=== PATIENT | female | born 1995 | race African-American/Black ===

== ENCOUNTER 2023-11-18 10:02 | Observation (INO) | payer OTHER, SELFPAY ==
[2023-11-18] VITALS (13 sets, daily range): BP systolic 120–161; BP diastolic 79–125; PULSE 84–104; RESP 17–22; TEMP 36.6–36.7; O2SAT 98–100
--- NOTE | ~2023-11-18 | XR_ITS ---
Portable chest x-ray Comparison: None Clinical History: Alcohol abuse Findings: Lungs are clear, without focal consolidation or pleural effusion. Cardiomediastinal silho uette is unremarkable. Bones and soft tissues are unremarkable. Impression: Normal chest. Reviewed, dictated and finalized at location M. Impression: Normal chest.
--- NOTE | ~2023-11-18 | XR_ITS ---
EXAMINATION: XR abdomen/kub 1V DATE: 11/18/2023 15:02 INDICATION: Abdominal pain TECHNIQUE: A supine view of the abdomen was obtained. COMPARISON: None. FINDINGS: Small amount of gas and stool scattered throughout the colon. No dilated loops of gas-filled bowel to suggest obstruction. Phlebolith in the left hemipelvis. No other suspicious calcifications in the ab domen or pelvis. 6 degrees lumbar levocurvature. IMPRESSION: 1. Normal bowel gas pattern. Reviewed, dictated and finalized at location A.
--- NOTE | 2023-11-18 10:22 | ECG_ITS ---
SEE SCANNED COPY FOR CONFIRMED REPORT MTDD
--- NOTE | 2023-11-18 10:26 | ED.ALCOHOL ---
HPI - Alcohol General Chief Complaint: Alcohol <Elisabeth Campos PA-C - Last Filed: 11/18/23 12:33> Stated Complaint: n/v, etoh withdrawal <Elisabeth Campos PA-C - Last Filed: 11/18/23 12:33> Time Seen by Provider: 11/18/23 10:09 <Elisabeth Campos PA-C - Last Filed: 11/18/23 12:33> History of Present Illness HPI narrative: 28-year-old female with a history of alcoholism presents to emergency department for EtOH withdrawal symptoms. Patient states she normally drinks approximately 1 pt to 1/5 of vodka daily. States she has been drinking since she was 4 years old. Patient states she desires to quit drinking so she tried to stop ?cold turkey? yesterday. Her last drink was at 12:15 a.m. on 11/17/2023. States yesterday she began having tremulousness, anxiety, auditory hallucinations, nausea and vomiting. She took a small sip of vodka which improved her symptoms. She arrives via EMS today for worsening symptoms including tremulousness, anxiety, nausea and vomiting, abdominal pain. States she is having some peripheral visual hallucinations, auditory hallucinations, tactile hallucinations. She reports pain throughout her abdomen and states it feels like it is muscular from vomiting. She denies fever. She denies prior history of seizures from alcohol withdrawal. Reports using marijuana few times a week, otherwise denies drug use. <Elisabeth Campos PA-C - Last Filed: 11/18/23 12:33> Related Data Allergies/Adverse Reactions: Allergies Allergy/AdvReac Type Severity Reaction Status Date / Time No Known Allergies Allergy Verified 11/18/23 10:27 <Elisabeth Campos PA-C - Last Filed: 11/18/23 12:33> Review of Systems Review of Systems: CONSTITUTIONAL: Denies fever, chills, or sweats. EYES: Denies visual changes, redness, or discharge. ENT: Denies rhinorrhea, congestion, sore throat, or otalgia. CARDIOVASCULAR: Denies chest pain, palpitations, or edema. RESPIRATORY: Denies cough or dyspnea. GASTROINTESTINAL: See HPI GENITOURINARY: Denies dysuria or hematuria. SKIN: Denies rash or itching. MUSCULOSKELETAL: Denies back pain, joint pain, or myalgia. NEUROLOGIC: Denies headache, numbness, or weakness. PSYCHIATRIC: Denies anxiety or depression. <Elisabeth Campos PA-C - Last Filed: 11/18/23 12:33> [facility] Past Medical History Medical History: Medical History (Updated 11/18/23 @ 13:41 by Chelsea Kruse MD) Alcoholism PTSD (post-traumatic stress disorder) <Elisabeth Campos PA-C - Last Filed: 11/18/23 12:33> Exam Narrative: GENERAL: Ill-appearing HEAD: Normocephalic, atraumatic. EYES: PERRLA and EOMI. ENT: Nares clear, no rhinorrhea or epistaxis. Mucous membranes moist. NECK: Supple. CHEST: Clear to auscultation. No respiratory distress. HEART: Regular rate and rhythm. No murmur heard. Normal peripheral pulses. ABDOMEN: Soft, nontender, nondistended, normal active bowel sounds. EXTREMITIES: Normal range of motion. No edema. SKIN: Warm, dry, no rash. NEURO: Alert and oriented x3. Tremulousness to bilateral upper extremities, tongue fasciculations <Elisabeth Campos PA-C - Last Filed: 11/18/23 12:33> Course TWISTER FRAME TENDER/PA Physician Supervision I agree with midlevel documentation; I performed the medical decision making component of this evaluation. Patient with history of daily alcohol use since the age of 4 presents here after not having anything a drink other than small sip of vodka a day ago, on exam she is extremely agitated and anxious, she is reporting some hallucinations, is quite tremulous here, hypertensive and tachycardic, CIWA score extremely elevated and I am concerned for DTs. Immediately placed on monitors, ativan started, still tremulous so given phenobarbital. This was quite effective and patient now much calmer, vital signs stable, labs concerning for ketoacidosis I suspect likely a starvation/alcoholic ketoacidosis. IV fluids started discussed with ICU Dr Long
[2023-11-18] MEDS: LORazepam INJ (*CRX) 2 MG/ML VIAL IV PUSH ×2 (10:30→18:17)
[2023-11-18 11:02] LABS: Basophils Absolute Auto 0.1 K/mm3 (0.0-0.1); Eosinophils Percent Auto 0.2 % (0-4.4); Hematocrit 37.3 % (37.0-47.0); Hemoglobin 12.1 g/dL (12.0-15.0); Immature Granulocyte Absolute 0.01 K/mm3 (0.00-0.031); Immature Granulocyte Percent A 0.2 % (0-0.5); Lymphocytes Absolute Auto 0.81 K/mm3 (0.9-3.2); Lymphocytes Percent Auto 15.8 % (18.3-44.2); Mean Corpuscular HGB Conc 32.4 g/dl (32-36); Mean Corpuscular Hemoglobin 24.9 pg (26-34); Mean Corpuscular Volume 76.9 fl (80-100); Monocytes Absolute Auto 0.2 K/mm3 (0.1-0.6); Monocytes Percent Auto 4.5 % (2.6-8.5); Neutrophils Percent Auto 78.3 % (45.5-73.1); Platelet Count Result 199 k/mm3 (150-375); Red Blood Count 4.85 M/mm3 (4.2-5.4); Red Cell Distribution Width 14.6 % (11.5-14.5); White Blood Count 5.1 K/mm3 (4.5-10.0)
--- NOTE | 2023-11-18 11:04 | PC.NURSE ---
Pt states she started drinking at age of 4, drinks 2 pints, quart of Vodka daily. Pt is seeking help to stop drinking. States visual hallucination of the rapest walking into her room, tactile of bugs crawling on her skin, sees figures out of her peripheral vision. Pt apprehensive to staff touches, pulls away from staff. Unable to tolerate B/P cuff.
[2023-11-18 11:08] LABS: Appearance Urine Cloudy (Clear); Bacteria Urine 1+ /hpf; Bilirubin Urine Negative (Negative); Blood Urine 1+ (Negative); Color Urine Yellow (Yellow); Glucose Urine UA Negative (Negative); Ketones Urine 4+ mg/dL (Negative); Leukocyte Esterase Ur Negative LEU/UL (Negative); Nitrate Urine Negative (Negative); Non Pathogenic Casts 0-2; Protein Urine 1+ mg/dL (Negative); Specific Grav Ur 1.024 (1.001-1.035); Squamous Epithelial Cell Urine Few /hpf (Few); WBC Urine 0-5 /hpf (0-3); pH Urine 5.5 (5.0-9.0)
[2023-11-18] MEDS: THIAMINE HCL 200 MG/2 ML VIAL 100 MG IV PUSH (11:10)
[2023-11-18] MEDS: PHENobarbitaL sodium (*CRX) 130 MG/ML VIAL 260 MG IV PUSH (11:11)
[2023-11-18 11:17] LABS: Prothrombin Time 13.6 Seconds (11.1-14.7)
[2023-11-18 11:17] LABS: Alanine Aminotransferase 41 U/L (6-35); Albumin Level 5.4 g/dL (3.5-5.1); Alkaline Phosphatase 101 U/L (38-126); Anion Gap 24 mmol/L (4-12); Aspartate Amino Transferase 85 U/L (14-36); Bilirubin,Total 1.2 mg/dL (0.2-1.3); Blood Urea Nitrogen 4 mg/dL (7-17); Calcium 9.4 mg/dL (8.4-10.2); Carbon Dioxide 13 mmol/L (22-30); Chloride 98 mmol/L (98-107); Estimated CRCL calculation 115 ml/min; Estimated Glomerular Filt Rate > 60; Glucose 80 mg/dL (65-110); Lipase 53 U/L (23-300); Magnesium 1.3 mg/dL (1.6-2.3); Potassium 3.6 mmol/L (3.4-5.0); Sodium 135 mmol/L (137-145)
[2023-11-18 11:18] LABS: Add Urine Microscopic? YES
[2023-11-18] MEDS: LACTATED RINGERS 1,000 ML 999 ML IV CONT ×2 (11:38→12:27)
[2023-11-18 12:05] LABS: pH VBG 7.394 (7.300-7.400)
[2023-11-18 12:07] LABS: PCO2 VBG 28.6 mmHg (42.0-48.0); PO2 VBG 84.5 mmHg (35.0-45.0)
[2023-11-18 12:08] LABS: Device ROOM AIR; Fractional Inspired Oxygen 21 %; HCO3 VBG 17.1 mEq/l (24.0-30.0)
[2023-11-18] MEDS: Please add drug allergy info to patient profile. 1 EACH XX (12:21)
[2023-11-18] MEDS: MAGNESIUM SULF 2 GM/WATER 50ML 2 GM/50 ML BAG IVPB (12:24)
--- NOTE | 2023-11-18 12:36 | PM.IMHP ---
H&P: HPI History of Present Illness Date/Time: 11/18/23 21:00 Chief Complaint: Alcohol Withdrawal Narrative: 28 y/o F presents here with alcohol withdrawal with PMH of alcoholism and PTSD. Patient presents here via EMS from home for further evaluation and treatment of alcoholism. HPI obtained through chart review, provider report, and patient interview. Patient contributed little due to somnolence. Patient has been attempting to detox from alcohol, unclear amount of time. Upon arrival to the ED the patient reported tremors/spasms to BUE, auditory hallucinations, anxiety, nausea, and vomiting that began last night. Patient did have small sip of vodka last night around 12:15 p.m. on 11/16/2023 to ease her symptoms. Today she is reporting a worsening of her symptoms. States she is no longer having chest visual hallucinations, also experiencing auditory and tactile hallucinations. Also developed abdominal pain. Unable to obtain description/location of pain at this time. Patient has been drinking approximately a pint to a 5th of vodka daily. Has been a daily drinker for awhile, started drinking alcohol at age 4. Has been utilizing alcohol to self medicate for PTSD. Denies previous history alcohol withdrawal seizures. Last period of sobriety in XX and lasted for (timeframe). Denies any other substance issues or substance use beyond marijuana. Initial VS at presentation: 98.1? F, HR 93, R 18, 138/125, and 100% on RA. ED workup showed: No leukocytosis, no anemia, sodium 135 I, creatinine 0.6 and GFR >60, lactic 1.0, Mag 1.3, total bilirubin 1.2, AST 85, ALT 41, lipase 53. UA equivocal for UTI , may be contaminant. CXR shows normal chest. Review of Systems Review of Systems: All systems reviewed & are unremarkable except as noted in HPI and below PMFSH Past Medical History Medical History Alcoholism PTSD (post-traumatic stress disorder) Social History Social History Smoking status: Current every day smoker Tobacco type: e-cigarettes/vaping Alcohol intake: current Drinks per week: 30 Substance use: current Substance use type: marijuana Do You Feel Safe in your Home?: Yes Lack of Transportation: No Lack of Food: Never True Current Housing: I Have Housing Concerned About Future Housing: No Difficulty Paying Gas/Electric Bills: No Difficulty Paying for Meds: No Currently Unemployed: No Education: High School Diploma/GED Difficulty w/ Childcare or Family Care: No Living arrangements: alone Occupation/Education: unemployed Sexual Orientation (if Verbalized by the Patient): Lesbian, Gordon, or Homosexual Spiritual care concerns: No Meds Home Medications and Allergies Home Medications Medication Instructions Recorded Confirmed Type No Home Medications 11/18/23 11/18/23 History Allergies Allergy/AdvReac Type Severity Reaction Status Date / Time No Known Allergies Allergy Verified 11/18/23 10:27 Vital Signs Vital Signs - 24 hr 11/18/23 10:24 11/18/23 10:31 11/18/23 11:45 Temperature 98.1 F Pulse Rate 93 101 H 92 Respiratory Rate 18 22 H 20 Blood Pressure 138/125 H 161/93 H Pulse Oximetry 100 100 100 Exam Narrative: somnolent, AA, young adult, Const: General: comfortable and no acute distress Other: , female, young adult, nontoxic appearance HENMT: Face/Nose/Sinus: Normal nares present Mouth: Yes moist mucous membranes Eyes: General: appearance normal, both eyes and all related structures Sclera: sclerae normal Pupils: Equal, round and reactive pupils present EOM: EOMs intact bilaterally Resp: Effort & Inspection: normal respiratory effort Auscultation: clear to auscultation bilaterally Cardio: Rate: regular rate Rhythm: regular rhythm Other: S1-S2 present without murmur, rub, ectopy GI: Other:
--- NOTE | 2023-11-18 12:37 | PC.NURSE ---
provider requested to not give Precedex unless patient becomes agitated and has more symptoms. patient is currently feeling relaxed and vitals are wnl
[2023-11-18 13:23] LABS: Ethanol < 10 mg/dL (<10)
[2023-11-18 13:33] LABS: Amphetamine Screen Urine Negative (Negative); Barbiturate Screen Urine Negative (Negative); Benzodiazepines Screen Urine Negative (Negative); Cannabinoid Screen Urine Positive (Negative); Cocaine Screen Urine Negative (Negative); Methadone Screen Urine Negative (Negative); Opiate Screen Urine Negative (Negative); Phencyclidine Screen Urine Negative (Negative)
--- NOTE | 2023-11-18 14:44 | WPDCNINT ---
Assessment and Plan Assessment and plan (1) Alcohol withdrawal: Qualifiers: Complication of substance-induced condition: with perceptual disturbance Qualified Code(s): F10.932 - Alcohol use, unspecified with withdrawal with perceptual disturbance Code(s): F10.939 - Alcohol use, unspecified with withdrawal, unspecified Status: Acute Assessment and Plan: Patient presented with alcohol withdrawal symptoms, tremors, auditory hallucinations, anxiety, nausea, vomiting. 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 Once her symptoms are started she did take a sip of water. She drinks 1 pt of vodka daily for many years. In the ER have CIWA score was significantly elevated. Patient received phenobarbital, Ativan in the ER. -upon arrival to the ICU patient does not have any tremors, nausea, vomiting or any hallucinations. Is awake, alert, oriented x3, no tremors noted -will place orders for p.r.n. Ativan for elevated CIWA -start Librium -start thiamine and folic acid -will place patient on D5 NS at 125 mL/hour for 1000 mL (2) Alcoholic ketoacidosis: Code(s): E87.29 - Other acidosis Status: Acute Assessment and Plan: Alcoholic ketoacidosis as well as starvation ketoacidosis patient does not eat at home she only drinks alcohol according to her -will start regular diet as she was to eat something here -will continue to monitor (3) Hypomagnesemia: Code(s): E83.42 - Hypomagnesemia Status: Acute Assessment and Plan: Magnesium was replaced Plan DVT prophylaxis: Enoxaparin Stress ulcer prophylaxis: Protonix Nutrition: Regular diet Code Status: Full code Critical Care Time Spent: 47 minutes Due to a high probability of clinically significant, life threatening deterioration, the patient required my highest level of preparedness to intervene emergently and I personally spent this critical care time directly and personally managing the patient. This critical care time included obtaining a history; examining the patient; pulse oximetry; ordering and review of studies; arranging urgent treatment with development of a management plan; evaluation of patient's response to treatment; frequent reassessment; and discussions with other providers. It was exclusive of separately billable procedures and treating other patients and teaching time. Please see Assessment and Plan section and the rest of the note for further information on patient assessment and treatment This dictation may have been done utilizing a voice recognition system. Attempts have been made to correct errors. However, there may be uncorrected grammatical, spelling, and recognitions errors present. Can Feeder Consult Note Consult date: 11/18/23 Reason for consult: Alcohol withdrawal HPI: Nguyen Saleh is a 28 year old female with past medical history of alcohol withdrawal and PTSD presented the ED on 11/18/2023 with complains of tremors, spasms to bilateral upper extremities, auditory hallucinations, anxiety, nausea, vomiting that started 1 night prior to arrival in the ED. patient is trying to quit drinking under own. She normally drinks 1 pt of vodka daily. Her symptoms worsened this morning prompting her to come to the ICU. Patient complained of abdominal pain. Patient's WBC count was 5.1, hemoglobin 12.1, platelet count 199. INR was 1.0. Sodium 135, potassium 3.6, CO2 13, anion gap of 24, BUN 4, creatinine of 0.6, lactic acid 1.0, blood glucose 80, calcium 9.4, magnesium 1.3, AST 85, ALT 41, lipase 53. Total bilirubin was 1.2. Urine tox screen was positive for cannabinoids. Alcohol levels < 10. Patient states she she vapes and sometimes takes marijuana but no other illicit drugs. Patient has been drinking 1 pt of vodka for many years. Lives by herself and her dog. She does not work. Patient was seen and examined upon arrival to the ICU, is awake, alert, oriented x3, answers to questions appropriately and follows sim
--- NOTE | 2023-11-18 15:14 | PC.NURSE ---
[facility] Admission Note: The patient,Nguyen Saleh,28 y/o, was given written information regarding hospital policies, unit procedures and contact persons. Patient's smoking status: uses a vape and smokes marijuana a few times a week.
[2023-11-18 15:49] LABS: Anion Gap 14 mmol/L (4-12); Blood Urea Nitrogen 3 mg/dL (7-17); Calcium 8.5 mg/dL (8.4-10.2); Carbon Dioxide 17 mmol/L (22-30); Chloride 100 mmol/L (98-107); Estimated CRCL calculation 115 ml/min; Estimated Glomerular Filt Rate > 60; Glucose 67 mg/dL (65-110); Sodium 131 mmol/L (137-145)
[2023-11-18] MEDS: chlordiazePOXIDE (*CRX) 25 MG CAPSULE 50 MG PO (17:18)
[2023-11-18] MEDS: DEXTROSE 5%/0.9% SOD CHL 1,000 ML 125 ML IV CONT (17:19)
[2023-11-18] MEDS: PANTOPRAZOLE SODIUM IV 40 MG VIAL IV PUSH (20:00)
[2023-11-19] VITALS (7 sets, daily range): BP systolic 113–136; BP diastolic 81–104; PULSE 67–97; RESP 17–19; TEMP 36.3–37.1; O2SAT 99–100
[2023-11-19] MEDS: chlordiazePOXIDE (*CRX) 25 MG CAPSULE 50 MG PO (00:03)
[2023-11-19 04:23] LABS: Basophils Percent Auto 0.9 % (0.2-1.2); Eosinophils Absolute Auto 0.1 K/mm3 (0-0.3); Eosinophils Percent Auto 2.8 % (0-4.4); Hematocrit 36.1 % (37.0-47.0); Hemoglobin 11.3 g/dL (12.0-15.0); Immature Platelet Fraction Pct 6.6 % (0.9-11.2); Lymphocytes Percent Auto 53.5 % (18.3-44.2); Mean Corpuscular HGB Conc 31.3 g/dl (32-36); Mean Corpuscular Hemoglobin 24.5 pg (26-34); Mean Corpuscular Volume 78.3 fl (80-100); Mean Platelet Volume 12.6 fl (7.4-10.4); Monocytes Absolute Auto 0.2 K/mm3 (0.1-0.6); Monocytes Percent Auto 6.3 % (2.6-8.5); Neutrophils Absolute Auto 1.2 K/mm3 (1.3-6.7); Neutrophils Percent Auto 36.5 % (45.5-73.1); Platelet Count Result 116 k/mm3 (150-375); Red Blood Count 4.61 M/mm3 (4.2-5.4); Red Cell Distribution Width 14.5 % (11.5-14.5); White Blood Count 3.2 K/mm3 (4.5-10.0)
[2023-11-19 04:34] LABS: Alanine Aminotransferase 36 U/L (6-35); Albumin Level 4.1 g/dL (3.5-5.1); Alkaline Phosphatase 69 U/L (38-126); Anion Gap 6 mmol/L (4-12); Aspartate Amino Transferase 68 U/L (14-36); Bilirubin,Total 0.9 mg/dL (0.2-1.3); Blood Urea Nitrogen 3 mg/dL (7-17); CRP < 0.5 mg/dL (<1.0); Calcium 9.2 mg/dL (8.4-10.2); Carbon Dioxide 25 mmol/L (22-30); Chloride 101 mmol/L (98-107); Creatine Kinase 349 U/L (30-135); Estimated CRCL calculation 115 ml/min; Estimated Glomerular Filt Rate > 60; Glucose 87 mg/dL (65-110); Lipase 72 U/L (23-300); Magnesium 1.8 mg/dL (1.6-2.3); Phosphorus 3.9 mg/dL (2.5-4.5); Potassium 3.7 mmol/L (3.4-5.0); Sodium 132 mmol/L (137-145)
[2023-11-19 04:38] LABS: Lactic Acid Reflex 0.8 mmol/L (0.7-2.0)
[2023-11-19] MEDS: ACETAMINOPHEN 325 MG TABLET 650 MG PO (04:45)
[2023-11-19] MEDS: THIAMINE HCL 200 MG/2 ML VIAL 100 MG IV PUSH (08:31)
[2023-11-19] MEDS: PANTOPRAZOLE SODIUM IV 40 MG VIAL IV PUSH (08:31)
[2023-11-19] MEDS: FOLIC ACID 1 MG/0.2 ML INJ IV PUSH (08:32)
--- NOTE | 2023-11-19 08:46 | WPDINTPN ---
Progress Note: A&P Assessment and Plan (1) Alcohol withdrawal: Qualifiers: Complication of substance-induced condition: with perceptual disturbance Qualified Code(s): F10.932 - Alcohol use, unspecified with withdrawal with perceptual disturbance Code(s): F10.939 - Alcohol use, unspecified with withdrawal, unspecified Status: Acute Assessment and Plan: Patient presented with alcohol withdrawal symptoms, tremors, auditory hallucinations, anxiety, nausea, vomiting. 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 Once her symptoms are started she did take a sip of water. She drinks 1 pt of vodka daily for many years. In the ER have CIWA score was significantly elevated. Patient received phenobarbital, Ativan in the ER. -upon arrival to the ICU patient does not have any tremors, nausea, vomiting or any hallucinations. Is awake, alert, oriented x3, no tremors noted -continue CIWA protocol and p.r.n. Ativan -continue p.r.n. Librium -continue thiamine and folic acid -status post D5 NS at 125 mL/hour for 1000 mL (2) Alcoholic ketoacidosis: Code(s): E87.29 - Other acidosis Status: Acute Assessment and Plan: Alcoholic ketoacidosis as well as starvation ketoacidosis patient does not eat at home she only drinks alcohol according to her - tolerating p.o. diet -will continue to monitor 11/18: Acidosis has resolved with IV fluids (3) Hypomagnesemia: Code(s): E83.42 - Hypomagnesemia Status: Acute Assessment and Plan: Magnesium improved Plan DVT prophylaxis: Enoxaparin Stress ulcer prophylaxis: Protonix Nutrition: Regular diet Code Status: Full code Critical Care Time Spent: 31 minutes Patient may be transferred out of the ICU if okay with hospitalist Due to a high probability of clinically significant, life threatening deterioration, the patient required my highest level of preparedness to intervene emergently and I personally spent this critical care time directly and personally managing the patient. This critical care time included obtaining a history; examining the patient; pulse oximetry; ordering and review of studies; arranging urgent treatment with development of a management plan; evaluation of patient's response to treatment; frequent reassessment; and discussions with other providers. It was exclusive of separately billable procedures and treating other patients and teaching time. Please see Assessment and Plan section and the rest of the note for further information on patient assessment and treatment This dictation may have been done utilizing a voice recognition system. Attempts have been made to correct errors. However, there may be uncorrected grammatical, spelling, and recognitions errors present. Subjective Date/time seen: 11/19/23 08:46 Interval history: Reason for consult: Alcohol withdrawal 11/19/2023: Patient seen and examined the ICU. Patient is awake, oriented x3. Denies any chest pain, shortness for breath abdominal pain, nausea or vomiting. Hemodynamically stable, adequate urine output, afebrile. No upper extremity tremors were noted. Patient is hemodynamically stable, afebrile, adequate O2 sats Review of Systems Review of Systems: All systems reviewed & are unremarkable except as noted in HPI and below Exam Narrative: General: Pleasant female in no acute distress HEENT:? Pupils equal and reactive, sclera is clear, moist oral mucosa Neck:? Supple Respiratory:? Clear to auscultation bilaterally Cardiac:? S1-S2 normal, regular rate and rhythm Abdomen:? Soft, tender to palpation in the left upper quadrant and epigastrium. Nondistended, Normoactive bowel sound Extremities:? No edema palpable pedal pulses Neuro:? Patient is awake, alert, oriented x3, answers to questions appropriately and follows simple commands Skin:? No lesions noted Psych:? Normal mentation and affect Objective Data Vital Signs Vital Signs: Vital Signs -
--- NOTE | 2023-11-19 11:00 | PM.DS ---
DS: Admitting Diagnosis Discharge Date November 19, 2023 Admitting Diagnosis Alcohol withdrawal symptoms DS: Discharge Diagnosis Discharge Diagnosis (1) Alcohol withdrawal: Qualifiers: Complication of substance-induced condition: with perceptual disturbance Qualified Code(s): F10.932 - Alcohol use, unspecified with withdrawal with perceptual disturbance Code(s): F10.939 - Alcohol use, unspecified with withdrawal, unspecified Status: Acute (2) Ketoacidosis: Code(s): E87.29 - Other acidosis Status: Acute (3) Alcoholic ketoacidosis: Code(s): E87.29 - Other acidosis Status: Acute (4) Hypomagnesemia: Code(s): E83.42 - Hypomagnesemia Status: Acute DS: Summary Hospital Course Hospital Course: 28-year-old female with a past medical history alcohol use disorder and PTSD and bipolar type 2. 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 She presented 11/17 with visual hallucinations and auditory and tactile hallucinations and abdominal pain. She had been drinking approximately a pint to a 5th of vodka daily. She had been drinking since age of 4. She uses alcohol to self medicate for PTSD. She was thus admitted to [facility] on 11/17. In the ER she was given phenobarbital. Upon arrival to the ER her symptoms had completely resolved. She was given D5 normal saline at 125 cc for alcoholic ketoacidosis and magnesium replacement for hypo magnesemia. On the morning of 11/18 her acidosis has resolved. Symptoms of her alcohol withdrawal have continued to be resolved. Patient is not wanting to stay for further monitoring. She understands if her symptoms return to return to the ER immediately. She understands if she continues to drink that will continue to increase her morbidity and chance for mortality. She does not want additional medications to help with alcohol abstinence. She has a psychiatrist and a follow-up appointment soon. Agrees to follow-up with that and the primary care. She will be following up with her ed case manager on [facility]. She was amenable to seeing if our care coordinators had recommendations. We asked those be provided. She was counseled on the detrimental effects of alcohol use disorder and she did not want to stay for further monitoring or start any medications to help with the aversion of alcohol. She wants to do the rest on her own. She is stable and requesting discharge on 11/18. She was full code. Time Spent with Patient Time attestation: Total time spent providing and/or coordinating discharge services: Exam Const: General: cooperative and no acute distress Resp: Effort & Inspection: normal respiratory effort Auscultation: clear to auscultation bilaterally Cardio: Rate: regular rate Rhythm: regular rhythm Heart sounds: S1 normal heart sound present and S2 normal heart sound present GI: GI Palp: No abdominal tenderness Auscultation: normal bowel sounds DS: Data Data Completed and Pending Labs on day of discharge: Labs from last 24 hours 11/19/23 11/18/23 11/18/23 03:44 15:28 13:03 WBC 3.2 L RBC 4.61 Hgb 11.3 L Hct 36.1 L MCV 78.3 L MCH 24.5 L MCHC 31.3 L RDW 14.5 Plt Count 116 L MPV 12.6 H Immature Gran % (Auto) 0.0 Neut % (Auto) 36.5 L Lymph % (Auto) 53.5 H [place] % (Auto) 6.3 Eos % (Auto) 2.8 Baso % (Auto) 0.9 Lymph # (Auto) 1.70 [place] # (Auto) 0.2 Eos # (Auto) 0.1 Baso # (Auto) 0.0 Abs Immat Gran (auto) 0.00 Absolute Neuts (auto) 1.2 L Absolute Nucleated RBC 0.000 Nucleated RBC % 0.0 % Immature Plt Fraction 6.6 PT INR VBG pH VBG pCO2 VBG pO2 VBG HCO3 O2 Delivery Device O2 Liters/Min FiO2 Sodium 132 L 131 L Potassium 3.7 4.0 Chloride 101 100 Carbon Dioxide 25 17 L Anion Gap 6 14 H BUN 3 L 3 L Creatinine 0.60 L 0.
[2023-11-19] MEDS: MAGNESIUM OXIDE 400 MG TABLET PO (11:25)
== END 2023-11-19 11:47 | disposition home or self-care (01) ==
LOC: ANHED 12:33 → ANHICU 13:41
PROVIDERS: Internal Medicine; Student in an Organized Health Care Education/Training Program; Admitting Provider Internal Medicine; Emergency Provider Physician Assistant; Visit Provider General Practice
DX: F10.932 Alcohol use, unspecified with withdrawal with perceptual disturbance (principal); E87.29 Other acidosis; E83.42 Hypomagnesemia; F43.10 Post-traumatic stress disorder, unspecified; F12.90 Cannabis use, unspecified, uncomplicated; F17.290 Nicotine dependence, other tobacco product, uncomplicated
CPT/HCPCS: 36415; 71045; 74018; 80048; 80053; 80307; 81001; 81025; 82550; 82803; 83605; 83690; 83735; 84100; 85025; 85055; 85610; 86140; 93005; 96361; 96365; 96374; 96375; 96376; 99285; A9270; C9113; G0378; G0379; J1650; J2060; J2560; J3411; J3475; J7042; J7120

== ENCOUNTER 2023-11-25 19:59 | Emergency (ER) | payer OTHER, SELFPAY ==
--- NOTE | ~2023-11-25 | XR_ITS ---
EXAMINATION: XR hand RT min 3V DATE: 11/25/2023 22:22 INDICATION: Right thumb pain TECHNIQUE: Posteroanterior, oblique and lateral views of the right hand were obtained. COMPARISON: None. FINDINGS: Alignment is normal. No fracture. Joint spaces are normal. Soft tissues are unremarkable. IMPRESSION: 1. Negative right hand radiographs. Reviewed, dictated and finalized at location A.
[2023-11-25 20:01] VITALS: BP 156/90; PULSE 85; RESP 18; TEMP 36.7; O2SAT 100
[2023-11-25 20:21] LABS: Basophils Percent Auto 0.9 % (0.2-1.2); Eosinophils Absolute Auto 0.1 K/mm3 (0-0.3); Eosinophils Percent Auto 1.3 % (0-4.4); Hematocrit 35.6 % (37.0-47.0); Hemoglobin 11.3 g/dL (12.0-15.0); Immature Granulocyte Absolute 0.01 K/mm3 (0.00-0.031); Immature Granulocyte Percent A 0.2 % (0-0.5); Lymphocytes Absolute Auto 1.96 K/mm3 (0.9-3.2); Lymphocytes Percent Auto 41.9 % (18.3-44.2); Mean Corpuscular HGB Conc 31.7 g/dl (32-36); Mean Corpuscular Hemoglobin 24.9 pg (26-34); Mean Corpuscular Volume 78.6 fl (80-100); Mean Platelet Volume 9.7 fl (7.4-10.4); Monocytes Absolute Auto 0.6 K/mm3 (0.1-0.6); Monocytes Percent Auto 12.8 % (2.6-8.5); Neutrophils Percent Auto 42.9 % (45.5-73.1); Platelet Count Result 227 k/mm3 (150-375); Red Blood Count 4.53 M/mm3 (4.2-5.4); Red Cell Distribution Width 15.2 % (11.5-14.5); White Blood Count 4.7 K/mm3 (4.5-10.0)
[2023-11-25 20:23] LABS: Appearance Urine Clear (Clear); Bilirubin Urine Negative (Negative); Blood Urine Negative (Negative); Color Urine Yellow (Yellow); Glucose Urine UA Negative (Negative); Ketones Urine Trace mg/dL (Negative); Leukocyte Esterase Ur Negative LEU/UL (Negative); Nitrate Urine Negative (Negative); Protein Urine Negative (Negative); Specific Grav Ur 1.008 (1.001-1.035); Urobilinogen Urine 0.2 mg/dL (<2.0); pH Urine 7.5 (5.0-9.0)
[2023-11-25 20:29] LABS: Alanine Aminotransferase 150 U/L (6-35); Albumin Level 4.9 g/dL (3.5-5.1); Alkaline Phosphatase 104 U/L (38-126); Anion Gap 12 mmol/L (4-12); Aspartate Amino Transferase 143 U/L (14-36); Bilirubin,Total 0.5 mg/dL (0.2-1.3); Blood Urea Nitrogen 3 mg/dL (7-17); Calcium 9.2 mg/dL (8.4-10.2); Carbon Dioxide 24 mmol/L (22-30); Chloride 103 mmol/L (98-107); Estimated CRCL calculation 123 ml/min; Estimated Glomerular Filt Rate > 60; Glucose 81 mg/dL (65-110); Potassium 3.1 mmol/L (3.4-5.0); Sodium 139 mmol/L (137-145)
[2023-11-25 20:37] LABS: Amphetamine Screen Urine Negative (Negative); Barbiturate Screen Urine Positive (Negative); Benzodiazepines Screen Urine Negative (Negative); Cannabinoid Screen Urine Positive (Negative); Cocaine Screen Urine Negative (Negative); Methadone Screen Urine Negative (Negative); Opiate Screen Urine Negative (Negative); Phencyclidine Screen Urine Negative (Negative)
[2023-11-25 20:47] LABS: Add Urine Microscopic? NO
[2023-11-25 20:57] LABS: Ethanol 112 mg/dL (<10)
[2023-11-25] MEDS: chlordiazePOXIDE (*CRX) 25 MG CAPSULE 50 MG PO (21:25)
[2023-11-25 21:29] LABS: Free T4 Free Thyroxine 1.29 ng/mL (0.78-2.19)
[2023-11-25 21:32] LABS: Magnesium 1.8 mg/dL (1.6-2.3)
[2023-11-25] MEDS: POTASSIUM CHLORIDE 20 MEQ ER TABLET 40 MEQ PO (22:00)
--- NOTE | 2023-11-25 22:10 | ED.ALCOHOL ---
HPI - Alcohol General Chief Complaint: Alcohol Stated Complaint: etoh withdrawl Time Seen by Provider: 11/25/23 21:17 Source: patient Mode of arrival: ambulatory Limitations: no limitations History of Present Illness HPI narrative: This is a 28-year-old female that presents to the emergency department as she would like to stop drinking alcohol. Reports she started to feel shaky, anxious and nauseous today. She usually drinks a fifth of liquor daily. She was trying to not drink anything. She did drink some Tara before coming in in order to get her symptoms to stop. She presents today as she would like to quit drinking. She is set up for a rehab program which starts in a couple of weeks. Related Data Allergies Allergy/AdvReac Type Severity Reaction Status Date / Time No Known Allergies Allergy Verified 11/25/23 20:06 Review of Systems Review of Systems: CONSTITUTIONAL: Denies fever GASTROINTESTINAL: Denies abdominal pain, nausea, vomiting MUSCULOSKELETAL: Reports joint pain, and myalgia. PSYCHIATRIC: Reports anxiety All systems reviewed & are unremarkable except as noted in HPI and below PMFSH Past Medical History Medical History (Updated 11/25/23 @ 22:56 by Renay Maxwell PA-C) Alcohol abuse Alcoholism PTSD (post-traumatic stress disorder) Social History Social History Smoking status: Current every day smoker Tobacco type: e-cigarettes/vaping Alcohol intake: current Drinks per week: 30 Substance use: current Substance use type: marijuana Do You Feel Safe in your Home?: Yes Lack of Transportation: No Lack of Food: Never True Current Housing: I Have Housing Concerned About Future Housing: No Difficulty Paying Gas/Electric Bills: No Difficulty Paying for Meds: No Currently Unemployed: No Education: High School Diploma/GED Difficulty w/ Childcare or Family Care: No Living arrangements: alone Occupation/Education: unemployed Sexual Orientation (if Verbalized by the Patient): Lesbian, Gordon, or Homosexual Spiritual care concerns: No Exam Narrative: GENERAL: Well-appearing, well-nourished, and in no acute distress. HEAD: Normocephalic, atraumatic. EYES: PERRLA and EOMI. ENT: Nares clear, no rhinorrhea or epistaxis. Mucous membranes moist. Oropharynx without tonsillar hypertrophy exudate or other lesions. Bilateral TMs pearly casey non-bulging NECK: Supple. No adenopathy or masses. CHEST: Clear to auscultation. No respiratory distress. No wheezes rales or rhonchi HEART: Regular rate and rhythm. No murmur heard. Normal peripheral pulses. ABDOMEN: Soft, nontender, nondistended, normal active bowel sounds. EXTREMITIES: Normal range of motion. No edema. SKIN: Warm, dry, no rash. NEURO: No focal deficits. Alert and oriented x3. PSYCH: Normal mood and affect Course Course Emergency Course: Patient updated on her workup and agrees with plan of care Vital Signs Vital signs: Vital Signs Temperature 98.0 F 11/25/23 20:01 Pulse Rate 85 11/25/23 20:01 Respiratory Rate 18 11/25/23 20:01 Blood Pressure 156/90 H 11/25/23 20:01 Pulse Oximetry 100 11/25/23 20:01 Oxygen Delivery Room Air 11/25/23 20:01 Temperature 98.0 F 11/25/23 20:01 Pulse Rate 88 11/25/23 23:08 Respiratory Rate 18 11/25/23 23:08 Blood Pressure 129/93 H 11/25/23 23:08 Pulse Oximetry 98 11/25/23 23:08 Oxygen Delivery Room Air 11/25/23 20:01 MDM - Alcohol MDM Narrative Medical decision making narrative: Patient presents to the emergency department for alcohol abuse. Reports she would like to stop drinking. She had tried to not drink today, but started to experience some anxiety, shaking and nausea. She did drink some Tara prior to coming in [facility] to alleviate her symptoms. She is not tachycardic. Mildly hypertensive upon arrival, this normalized with a dose of Librium. CBC without leukocyt
[2023-11-25 23:08] VITALS: BP 129/93; PULSE 88; RESP 18; O2SAT 98
== END 2023-11-25 23:09 | disposition home or self-care (01) ==
PROVIDERS: Emergency Medicine; Emergency Provider Physician Assistant
DX: M25.541 Pain in joints of right hand (principal); F10.920 Alcohol use, unspecified with intoxication, uncomplicated; F17.210 Nicotine dependence, cigarettes, uncomplicated
CPT/HCPCS: 36415; 73130; 80053; 80307; 81003; 81025; 83735; 84439; 84443; 85025; 99283; A9270

== ENCOUNTER 2024-01-09 09:55 | Emergency (ER) | payer OTHER, SELFPAY ==
[2024-01-09 10:03] VITALS: BP 134/92; PULSE 96; RESP 14; TEMP 36.9; O2SAT 99
[2024-01-09 10:21] LABS: Basophils Absolute Auto 0.1 K/mm3 (0.0-0.1); Basophils Percent Auto 1.3 % (0.2-1.2); Eosinophils Absolute Auto 0.1 K/mm3 (0-0.3); Eosinophils Percent Auto 2.9 % (0-4.4); Hematocrit 36.3 % (37.0-47.0); Immature Granulocyte Absolute 0.01 K/mm3 (0.00-0.031); Immature Granulocyte Percent A 0.2 % (0-0.5); Lymphocytes Percent Auto 52.6 % (18.3-44.2); Mean Corpuscular HGB Conc 33.1 g/dl (32-36); Mean Corpuscular Hemoglobin 25.3 pg (26-34); Mean Corpuscular Volume 76.4 fl (80-100); Mean Platelet Volume 10.9 fl (7.4-10.4); Monocytes Absolute Auto 0.3 K/mm3 (0.1-0.6); Neutrophils Absolute Auto 1.6 K/mm3 (1.3-6.7); Platelet Count Result 148 k/mm3 (150-375); Red Blood Count 4.75 M/mm3 (4.2-5.4); Red Cell Distribution Width 16.2 % (11.5-14.5); White Blood Count 4.6 K/mm3 (4.5-10.0)
[2024-01-09 10:31] LABS: Alanine Aminotransferase 47 U/L (6-35); Albumin Level 4.9 g/dL (3.5-5.1); Alkaline Phosphatase 102 U/L (38-126); Anion Gap 19 mmol/L (4-12); Aspartate Amino Transferase 115 U/L (14-36); Bilirubin,Total 0.7 mg/dL (0.2-1.3); Blood Urea Nitrogen 5 mg/dL (7-17); Carbon Dioxide 23 mmol/L (22-30); Chloride 98 mmol/L (98-107); Estimated CRCL calculation 118 ml/min; Estimated Glomerular Filt Rate > 60; Glucose 113 mg/dL (65-110); Magnesium 1.9 mg/dL (1.6-2.3); Potassium 4.1 mmol/L (3.4-5.0); Sodium 140 mmol/L (137-145)
[2024-01-09] MEDS: SODIUM CHLORIDE 0.9% IV 1,000 ML 999 ML IV CONT ×2 (10:58→11:36)
[2024-01-09 11:03] LABS: Ethanol 320 mg/dL (<10)
[2024-01-09 11:07] LABS: Appearance Urine Clear (Clear); Bilirubin Urine Negative (Negative); Blood Urine Negative (Negative); Color Urine Yellow (Yellow); Glucose Urine UA Negative (Negative); Ketones Urine 1+ mg/dL (Negative); Leukocyte Esterase Ur Negative LEU/UL (Negative); Nitrate Urine Negative (Negative); Protein Urine Negative (Negative); Specific Grav Ur 1.009 (1.001-1.035)
[2024-01-09 11:12] LABS: Add Urine Microscopic? NO
--- NOTE | 2024-01-09 11:26 | ED.ALCOHOL ---
HPI - Alcohol General Chief Complaint: Alcohol Stated Complaint: etoh withdrawal Time Seen by Provider: 01/09/24 10:04 Source: patient and old records reviewed Mode of arrival: ambulatory Limitations: no limitations History of Present Illness HPI narrative: Patient is a 28-year-old female who presents the ED with report of alcohol intoxication. Patient is an alcoholic, drinks a pt or more of liquor per day. She last drink around 10:00 a.m. this morning, a pt of vodka. She reports she would like to quit drinking. She was seen in the ED here in November for similar symptoms, prescribed Librium taper. At that time, patient reported she was scheduled to undergo rehab soon. Patient is unable to explain what happened to the rehab program. per family, she had an appointment at [facility] today to be admitted for rehab, however patient states they were told they had no beds. She was then referred here for further evaluation. Patient denies any pain. Denies nausea, vomiting. States she is hungry. States she does not feel intoxicated. Related Data Allergies Allergy/AdvReac Type Severity Reaction Status Date / Time No Known Allergies Allergy Verified 11/25/23 20:06 Review of Systems Review of Systems: CONSTITUTIONAL: Denies fever, chills, or sweats. GASTROINTESTINAL: Denies abdominal pain, nausea, vomiting NEUROLOGIC: Denies headache, dizziness, numbness, or weakness. All systems reviewed & are unremarkable except as noted in HPI and below PMFSH Past Medical History Medical History Alcohol abuse Alcoholism PTSD (post-traumatic stress disorder) Social History Social History Smoking status: Current every day smoker Tobacco type: e-cigarettes/vaping Alcohol intake: current Drinks per week: 30 Substance use: current Substance use type: marijuana Do You Feel Safe in your Home?: Yes Lack of Transportation: No Lack of Food: Never True Current Housing: I Have Housing Concerned About Future Housing: No Difficulty Paying Gas/Electric Bills: No Difficulty Paying for Meds: No Currently Unemployed: No Education: High School Diploma/GED Difficulty w/ Childcare or Family Care: No Living arrangements: alone Occupation/Education: unemployed Sexual Orientation (if Verbalized by the Patient): Lesbian, Gordon, or Homosexual Spiritual care concerns: No Exam Narrative: GENERAL: Intoxicated appearing, well-nourished, non-toxic, in no acute distress. HEAD: Normocephalic, atraumatic. RESPIRATORY: Airway patent, respirations nonlabored. Clear to auscultation bilaterally, no rales, rhonchi, wheezing. CARDIOVASCULAR: Regular rate and rhythm ABDOMINAL: Soft, nontender, nondistended. Normoactive BS. MUSCULOSKELETAL: Moves all extremities. No gross deformities. SKIN: Warm, dry, normal color. NEURO: Alert, though falling asleep frequently on exam. Speech somewhat slurred at times. Follows commands. No ataxic movements. PSYCHIATRIC: Appropriate mood and affect. Normal interaction. Course Vital Signs Vital signs: Vital Signs Temperature 98.5 F 01/09/24 10:03 Pulse Rate 96 01/09/24 10:03 Respiratory Rate 14 01/09/24 10:03 Blood Pressure 134/92 H 01/09/24 10:03 Pulse Oximetry 99 01/09/24 10:03 Oxygen Delivery Room Air 01/09/24 10:03 Temperature 98.5 F 01/09/24 10:03 Pulse Rate 90 01/09/24 11:53 Respiratory Rate 16 01/09/24 11:53 Blood Pressure 105/71 01/09/24 11:53 Pulse Oximetry 99 01/09/24 11:53 Oxygen Delivery Room Air 01/09/24 10:03 MDM - Alcohol MDM Narrative Medical decision making narrative: Patient presented to ED wanting to stop drinking alcohol. Reports last drink was around 10:00 a.m. this morning. Drinks up to a pt or more of liquor per day. Vital signs are stable upon arrival. Patient appears intoxicated. She is i
[2024-01-09] MEDS: THIAMINE HCL 200 MG/2 ML VIAL 100 MG IV PUSH (11:36)
[2024-01-09 11:53] VITALS: BP 105/71; PULSE 90; RESP 16; O2SAT 99
--- NOTE | 2024-01-09 13:54 | PC.NURSE ---
Pt pulled her IV out. Awaiting father to return to make discharge arrangements.
== END 2024-01-09 15:08 | disposition home or self-care (01) ==
PROVIDERS: Emergency Provider Physician Assistant
DX: F10.920 Alcohol use, unspecified with intoxication, uncomplicated (principal); Y90.8 Blood alcohol level of 240 mg/100 ml or more; F17.290 Nicotine dependence, other tobacco product, uncomplicated
CPT/HCPCS: 36415; 80053; 80307; 81003; 81025; 83735; 85025; 96361; 96374; 99284; J3411; J7030

== ENCOUNTER 2024-04-06 19:02 | Emergency (ER) | payer OTHER, SELFPAY ==
[2024-04-06] VITALS (22 sets, daily range): BP systolic 118–146; BP diastolic 72–91; PULSE 88–118; RESP 13–26; TEMP 36.6; O2SAT 98–100
--- NOTE | 2024-04-06 19:10 | ED.NAVMDI ---
HPI - Nausea/Vomiting/Diarrhea General Chief complaint: Nausea/Vomiting/Diarrhea Stated complaint: n/v/d Time Seen by Provider: 04/06/24 19:09 Source: patient Mode of arrival: ambulatory Limitations: no limitations History of Present Illness HPI Narrative: Patient came to the ED by private car complaining of nausea and frequent vomiting. Patient drinks on average 3 pt of alcohol daily for years. She is telling me that she started drinking alcohol when she was 4 years old. Patient started fever control injection once a month, today with does 4. At 11:00 a.m. in the morning. The patient had her regular 3 pt of evelia subsequently started having severe nausea and vomiting. Patient concerning about the alcohol intake with vavatrol. Related Data Allergies Allergy/AdvReac Type Severity Reaction Status Date / Time No Known Allergies Allergy Verified 11/25/23 20:06 Review of Systems Review of Systems: All systems reviewed & are unremarkable except as noted in HPI and below PMFSH Past Medical History Medical History Alcohol abuse Alcoholism PTSD (post-traumatic stress disorder) Social History Social History Smoking status: Current every day smoker Tobacco type: e-cigarettes/vaping Alcohol intake: current Drinks per week: 30 Substance use: current Substance use type: marijuana Do You Feel Safe in your Home?: Yes Lack of Transportation: No Lack of Food: Never True Current Housing: I Have Housing Concerned About Future Housing: No Difficulty Paying Gas/Electric Bills: No Difficulty Paying for Meds: No Currently Unemployed: No Education: High School Diploma/GED Difficulty w/ Childcare or Family Care: No Living arrangements: alone Occupation/Education: unemployed Sexual Orientation (if Verbalized by the Patient): Lesbian, Gordon, or Homosexual Spiritual care concerns: No Exam Narrative: General appearance: Well-developed, well-nourished holding vomiting bag in hands Skin: Normal color Head: Normocephalic, nontraumatic Eyes: Clear conjunctiva ENT: Oropharynx normal, ears normal, nose normal Neck: Supple, nontender Chest and respiratory: Airway patent, no respiratory distress, no accessory muscle use Heart: Regular rate/rhythm Abdomen: Soft, nontender, no organomegaly, quiet bowel sounds Vascular: Normal peripheral pulses, normal capillary refill. Musculoskeletal: Normal range of motion, nontender back Neurologic: Alert and oriented ?3, SAMPLE MOUNTER is normal as tested, no gross motor deficit Course Vital Signs Vital signs: Vital Signs Temperature 36.6 C 04/06/24 19:03 Pulse Rate 114 H 04/06/24 19:03 Respiratory Rate 20 04/06/24 19:03 Blood Pressure 118/80 04/06/24 19:03 Pulse Oximetry 99 04/06/24 19:03 Oxygen Delivery Room Air 04/06/24 19:03 Temperature 36.6 C 04/06/24 19:03 Pulse Rate 114 H 04/06/24 19:03 Respiratory Rate 20 04/06/24 19:03 Blood Pressure 118/80 04/06/24 19:03 Pulse Oximetry 99 04/06/24 19:03 Oxygen Delivery Room Air 04/06/24 19:03 MDM - Nausea/Vomiting/Diarrhea MDM Narrative Medical decision making narrative: Patient came with nausea and vomiting after drinking 3 pt of alcohol, after having Vivitrol at 11:00 a.m.. Vital signs showing heart rate of 114 otherwise insignificant Physical examination showing a patient holding vomiting bag in hands with dry heaves and intermittent vomiting Differential diagnosis include occult intoxication, dehydration electrolyte imbalance, drug abuse Blood workup today showed alcohol level of 320 Ur
--- NOTE | 2024-04-06 19:43 | PC.NURSE ---
Pt reported to this RN she had drank 2-3 pints of evelia prior to getting vivitrol injection this morning. pt then had an additional 2-3 shots of evelia this afternoon to finish the bottles off . Pt c/o nausea and chest pain. Pt able to be redirected, but pt continuously standing from bed to drink from faucet and walking into hallway yelling for nurse. Pt moved to room 12 at this time. Pt educated on use of call light and the need for both side rails to be up for safety.
[2024-04-06] MEDS: SODIUM CHLORIDE 0.9% IV 1,000 ML 999 ML IV CONT (20:17)
[2024-04-06] MEDS: ONDANSETRON INJ 4 MG/2 ML VIAL IV PUSH (20:17)
[2024-04-06 20:35] LABS: Basophils Absolute Auto 0.1 K/mm3 (0.0-0.1); Basophils Percent Auto 1.2 % (0.2-1.2); Eosinophils Percent Auto 0.7 % (0-4.4); Hematocrit 35.7 % (37.0-47.0); Hemoglobin 11.6 g/dL (12.0-15.0); Immature Granulocyte Absolute 0.01 K/mm3 (0.00-0.031); Immature Granulocyte Percent A 0.2 % (0-0.5); Lymphocytes Absolute Auto 1.28 K/mm3 (0.9-3.2); Lymphocytes Percent Auto 31.8 % (18.3-44.2); Mean Corpuscular HGB Conc 32.5 g/dl (32-36); Mean Corpuscular Hemoglobin 24.1 pg (26-34); Mean Corpuscular Volume 74.2 fl (80-100); Mean Platelet Volume 10.7 fl (7.4-10.4); Monocytes Absolute Auto 0.4 K/mm3 (0.1-0.6); Monocytes Percent Auto 8.7 % (2.6-8.5); Neutrophils Absolute Auto 2.3 K/mm3 (1.3-6.7); Neutrophils Percent Auto 57.4 % (45.5-73.1); Platelet Count Result 294 k/mm3 (150-375); Red Blood Count 4.81 M/mm3 (4.2-5.4); Red Cell Distribution Width 15.3 % (11.5-14.5)
[2024-04-06 20:40] LABS: Add Urine Microscopic? YES; Appearance Urine Clear (Clear); Bacteria Urine 1+ /hpf; Bilirubin Urine Negative (Negative); Blood Urine Negative (Negative); Color Urine Yellow (Yellow); Glucose Urine UA Negative (Negative); Ketones Urine 2+ mg/dL (Negative); Leukocyte Esterase Ur Negative LEU/UL (Negative); Nitrate Urine Negative (Negative); Protein Urine 1+ mg/dL (Negative); Specific Grav Ur 1.017 (1.001-1.035); Squamous Epithelial Cell Urine Few /hpf (Few); WBC Urine 0-5 /hpf (0-3)
[2024-04-06 20:43] LABS: Ethanol 95 mg/dL (<10)
[2024-04-06 20:49] LABS: Amphetamine Screen Urine Negative (Negative); Barbiturate Screen Urine Negative (Negative); Benzodiazepines Screen Urine Positive (Negative); Cannabinoid Screen Urine Positive (Negative); Cocaine Screen Urine Negative (Negative); Methadone Screen Urine Negative (Negative); Opiate Screen Urine Negative (Negative); Phencyclidine Screen Urine Negative (Negative)
[2024-04-06 21:14] LABS: Platelet Estimate Adequate (Adequate)
[2024-04-06 21:15] LABS: Microcytosis 2+ (NORMAL); Schistocytes None Seen
[2024-04-06 21:16] LABS: Anisocytosis 2+
--- NOTE | 2024-04-06 22:00 | PC.NURSE ---
2199 - patient stated that her dad was the only one that could give her a ride home. this rn called the patients father. dad stated that he could not come get her. and that he wouldn't be here until 399. updated the patient, and she reiterated that she didn't have anyone else to come and get her.
[2024-04-07 00:15] VITALS: PULSE 95; RESP 20
[2024-04-07 00:16] VITALS: BP 124/88; PULSE 89; RESP 24; O2SAT 100
== END 2024-04-07 00:15 | disposition home or self-care (01) ==
PROVIDERS: Emergency Provider Emergency Medicine; PCP Hospitalist
DX: F10.20 Alcohol dependence, uncomplicated (principal); Y90.4 Blood alcohol level of 80-99 mg/100 ml; F12.90 Cannabis use, unspecified, uncomplicated; F13.90 Sedative, hypnotic, or anxiolytic use, unspecified, uncomplicated; F43.10 Post-traumatic stress disorder, unspecified; F17.290 Nicotine dependence, other tobacco product, uncomplicated; Z79.899 Other long term (current) drug therapy
CPT/HCPCS: 36415; 80307; 81001; 82077; 85025; 96361; 96374; 99284; J2405; J7030

== ENCOUNTER 2024-04-07 09:59 | Emergency (ER) | payer OTHER, SELFPAY ==
--- NOTE | ~2024-04-07 | CT_ITS ---
EXAMINATION: CTA chest PE abdomen pel DATE: 04/07/2024 13:56 INDICATION: RUQ abd pain, syncopal episode, +D-Dimer TECHNIQUE: Computed tomography angiography (CTA) of the chest was performed with 100 mL Omnipaque-350 intravenous contrast timed to evaluate the pulmonary arteries, followed by portal venous phase imagi ng of the abdomen and pelvis. Coronal maximum intensity projection 3D-reconstructions were created by the technologist. The dose-length product (DLP) was 514.30 mGy-cm. Automated exposure control and it erative reconstruction technique were employed. COMPARISON: None. FINDINGS: CHEST: Lung parenchyma and airways: Clear. Pleura: Unremarkable. Thoracic inlet, axillae and chest wall: No thyroid or soft tissue mass. Thoracic aorta: No significant dilation. No dissection. Mediastinum: Normal. Heart and pericardium: Normal. Coronary artery calcifications: Absent. Thoracic bones: No acute osseous finding. Pulmonary arteries: Study quality: Adequate. No pulmonary emboli detected. ABDOMEN/PELVIS: Liver: Enlarged. Fatty infiltrated. Biliary/Gallbladder: Gallbladder is normal. No bile duct dilation. Pancreas: No mass or duct dilation. Spleen: Normal. Adrenals:No mass. Kidneys: No suspicious mass, obstructing stone, or hydronephrosis. GI tract: No small or large bowel dilation. Normal appendix. Mesentery/Peritoneum: No ascites, mass, or free air. Retroperitoneum: No mass. Pelvis: Partially distended urinary bladder with moderate wall thickening. Normal uterus and bilatera l ovaries. Soft Tissues: Left hip subcutaneous stranding. Abdominopelvic bones: IMPRESSION: No CT evidence of acute pulmonary embolus. No acute process detected in the chest. Hepatomegaly with steatosis. Cystitis versus bladder wall thickening from incomplete distention. Left hip contusion. Reviewed, dictated and finalized at location K.
--- NOTE | ~2024-04-07 | CT_ITS ---
EXAMINATION: CT brain wo con DATE: 04/07/2024 11:51 INDICATION: Syncope TECHNIQUE: Computed tomography (CT) of the head was performed without intravenous contrast. Sagittal and coronal reconstructions were performed. The mA was adjusted according to patient size. Iterative reconstruction technique was employed. The dose-length product was 529.67 mGy-cm. COMPARISON: None FINDINGS: No acute intracranial hemorrhage, acute infarction or abnormal extra axial fluid collection. Ventricl es are normal and symmetric. No mass/mass effect. The orbits, paranasal sinuses and mastoid air cells are normal. IMPRESSION: 1. Normal head CT. Reviewed, dictated and finalized at location A. IMPRESSION: 1. Normal head CT.
--- NOTE | ~2024-04-07 | CT_ITS ---
EXAMINATION: CT cervical spine wo con DATE: 04/07/2024 11:51 INDICATION: Neck pain post fall TECHNIQUE: Computed tomography (CT) of the cervical spine was performed without intravenous contrast. Automated exposure control and iterative reconstruction technique were employed. The dose-length pro duct was 367.11 mGy-cm. COMPARISON: None FINDINGS: There is straightening of the normal cervical lordosis. No spondylolisthesis or facet subluxation. At lantoaxial interval is unremarkable. Vertebral body and disc heights are normal. No fracture. Negligi ble scattered facet and uncovertebral osteoarthritis. Central canal and neural foramina are patent th roughout. Cervical soft tissues are unremarkable. Mild emphysema in the visualized upper lungs. IMPRESSION: 1. Straightening of the normal cervical lordosis which could be positional or due to muscle spasm. Ot herwise unremarkable cervical spine with no acute osseous abnormality. Reviewed, dictated and finalized at location A. IMPRESSION: 1. Straightening of the normal cervical lordosis which could be positional or d ue to muscle spasm. Otherwise unremarkable cervical spine with no acute osseous abnormality.
--- NOTE | ~2024-04-07 | XR_ITS ---
EXAM: XR knee RT min 4V DATE: 04/07/2024 15:46 HISTORY: knee pain, ABRASION TO LATERAL KNEE . COMPARISON: None available. FINDINGS: Normal mineralization. No fracture or dislocation. No lytic or blastic lesion. Joint space s are maintained. Fragmentation at the tibial tuberosity, likely sequela of Andreina-Schlatter disease. Small volume knee joint effusion. No erosion or periosteal change. Soft tissues within normal limits . IMPRESSION: No acute osseous finding in the right knee. Reviewed, dictated and finalized at location K.
--- NOTE | ~2024-04-07 | XR_ITS ---
EXAMINATION: XR chest 2V DATE: 04/07/2024 11:20 INDICATION: Syncope, nausea, vomiting and malaise TECHNIQUE: PA and lateral views of the chest were obtained. COMPARISON: Chest radiograph dated 11/18/2023 FINDINGS: The lungs remain clear with no focal airspace opacities, pulmonary edema, pleural effusion or pneumot horax. The cardiomediastinal silhouette is normal. Visualized bones and soft tissues are unremarkable . IMPRESSION: 1. Normal chest radiograph. Reviewed, dictated and finalized at location A. IMPRESSION: 1. Normal chest radiograph.
--- NOTE | ~2024-04-07 | US_ITS ---
EXAMINATION: US right upper quadrant DATE: 04/07/2024 11:58 INDICATION: Right upper quadrant abdominal pain TECHNIQUE: Multiple grayscale and Doppler ultrasound images of the abdomen were obtained. COMPARISON: None FINDINGS: The pancreatic head and body are normal in appearance. The pancreatic tail is not visualized. Liver has normal echogenicity and contour, with a smooth surface. No liver lesion identified. No intrahepat ic biliary duct dilation suspected. Portal venous flow was seen in the hepatopetal, normal direction and has normal Doppler waveform. The visualized proximal inferior vena cava is normal. The gallbladde r is normal in appearance with no dilation or wall thickening. There is no cholelithiasis. The commo n bile duct measures 3-4 mm, which is normal. Sonographic Raza sign was reported as positive by the chief optometry service. IMPRESSION: 1. Nonspecific positive sonographic Raza's sign overlying the normal-appearing gallbladder with no evident cholelithiasis, wall thickening or dilation the gallbladder to suggest acute cholecystitis. I f there is continued concern for acute cholecystitis could consider HIDA scan for further evaluation. Reviewed, dictated and finalized at location A. IMPRESSION: 1. Nonspecific positive sonographic Raza's sign overlying the normal-appearin g gallbladder with no evident cholelithiasis, wall thickening or dilation the g allbladder to suggest acute cholecystitis. If there is continued concern for ac vivi cholecystitis could consider HIDA scan for further evaluation.
[2024-04-07 10:29] VITALS: BP 148/98; PULSE 83; RESP 16; TEMP 36.4; O2SAT 99
--- NOTE | 2024-04-07 10:33 | ECG_ITS ---
Test Date: 2024-04-07 10:49:37 Measurements Intervals [place] Rate: 83 P: 63 [place]: 151 QRS: 74 QRSD: 78 T: 59 QT: 364 QTc: 429 Interpretive Statements SINUS RHYTHM WITH SINUS ARRHYTHMIA MODERATE T-WAVE ABNORMALITY, CONSIDER ANTERIOR ISCHEMIA [-0.1+ mV T WAVE IN V3/V4] No previous ECG available for comparison Electronically Signed On 04-07-2024 16:23:41 CDT by Vic Garcia M.D.
[2024-04-07 10:48] LABS: Basophils Percent Auto 0.7 % (0.2-1.2); Eosinophils Percent Auto 0.4 % (0-4.4); Hematocrit 34.4 % (37.0-47.0); Hemoglobin 10.9 g/dL (12.0-15.0); Immature Granulocyte Absolute 0.03 K/mm3 (0.00-0.031); Immature Granulocyte Percent A 0.7 % (0-0.5); Lymphocytes Absolute Auto 1.04 K/mm3 (0.9-3.2); Lymphocytes Percent Auto 23.3 % (18.3-44.2); Mean Corpuscular HGB Conc 31.7 g/dl (32-36); Mean Corpuscular Volume 75.8 fl (80-100); Mean Platelet Volume 11.6 fl (7.4-10.4); Monocytes Absolute Auto 0.4 K/mm3 (0.1-0.6); Monocytes Percent Auto 8.7 % (2.6-8.5); Neutrophils Percent Auto 66.2 % (45.5-73.1); Platelet Count Result 274 k/mm3 (150-375); Red Blood Count 4.54 M/mm3 (4.2-5.4); Red Cell Distribution Width 15.5 % (11.5-14.5); White Blood Count 4.5 K/mm3 (4.5-10.0)
[2024-04-07 10:52] LABS: BEDSIDEPREGUCG Negative (Negative)
[2024-04-07 10:57] LABS: Alanine Aminotransferase 150 U/L (6-35); Albumin Level 4.8 g/dL (3.5-5.1); Alkaline Phosphatase 83 U/L (38-126); Anion Gap 19 mmol/L (4-12); Aspartate Amino Transferase 153 U/L (14-36); Blood Urea Nitrogen 4 mg/dL (7-17); Calcium 9.7 mg/dL (8.4-10.2); Carbon Dioxide 19 mmol/L (22-30); Chloride 95 mmol/L (98-107); Estimated CRCL calculation 115 ml/min; Estimated Glomerular Filt Rate > 60; Glucose 89 mg/dL (65-110); Potassium 3.7 mmol/L (3.4-5.0); Sodium 133 mmol/L (137-145)
--- NOTE | 2024-04-07 11:11 | ED.SYNCOPE ---
HPI - Syncope General Chief Complaint: Syncope Stated Complaint: Vomiting, dizzy Time Seen by Provider: 04/07/24 10:27 History of Present Illness HPI narrative: 28-year-old female with history of alcohol abuse presents to the emergency department for nausea and vomiting as well as syncope. Patient was seen in our emergency department yesterday for nausea and vomiting. Per the patient, she will drink anywhere between 2-4 pt the of Tara a day since she was 4 years old. States she was hospitalized for alcohol withdrawal in January and received her 1st shot of Vivitrol. She has been getting Vivitrol injections every 28 days Since and had been sober, however states she slipped about 3 weeks ago and has been drinking again. patient states she drank Tara and went to receive her Vivitrol injection and then shortly after drink 2 shots and started vomiting. She presented to the ED for evaluation and was discharged home. States she did not feel better when she got home and in the middle of the night she has been vomiting several times. She states she woke up at 1.2 go vomit when she felt lightheaded and dizzy and passed out. She states her uncle heard a loud thump and came into her bedroom. unknown how long patient was unconscious. Her father came and checked on the patient today and brought her to the ED for further evaluation. The patient is complaining of a right-sided posterior headache since the fall and believe she hit her head. She is reporting right upper quadrant abdominal pain, chest pain and shortness of breath. States she feels anxious. She notes that she has been drinking since she was 4 years old. Related Data Allergies Allergy/AdvReac Type Severity Reaction Status Date / Time No Known Allergies Allergy Verified 11/25/23 20:06 Review of Systems Review of Systems: All systems reviewed & are unremarkable except as noted in HPI and below PMFSH Past Medical History Medical History Alcohol abuse Alcoholism PTSD (post-traumatic stress disorder) Social History Social History Smoking status: Current every day smoker Tobacco type: e-cigarettes/vaping Alcohol intake: current Drinks per week: 30 Substance use: current Substance use type: marijuana Do You Feel Safe in your Home?: Yes Lack of Transportation: No Lack of Food: Never True Current Housing: I Have Housing Concerned About Future Housing: No Difficulty Paying Gas/Electric Bills: No Difficulty Paying for Meds: No Currently Unemployed: No Education: High School Diploma/GED Difficulty w/ Childcare or Family Care: No Living arrangements: alone Occupation/Education: unemployed Sexual Orientation (if Verbalized by the Patient): Lesbian, Gordon, or Homosexual Spiritual care concerns: No Exam Narrative: GENERAL: Well-appearing, well-nourished, and in no acute distress. HEAD: Normocephalic, atraumatic. No abrasions, lacerations ecchymosis or hematomas. tenderness to the posterior scalp without crepitus, step-offs or deformities EYES: PERRLA and EOMI. ENT: Nares clear, no rhinorrhea or epistaxis. Mucous membranes moist. NECK: Minimal midline cervical spinous tenderness without crepitus, step-offs or deformities BACK: no midline thoracolumbar spinous tenderness, step-offs or deformities CHEST: Clear to auscultation. No respiratory distress. HEART: Regular rate and rhythm. No murmur heard. Normal peripheral pulses. ABDOMEN: normoactive bowel sounds. Abdomen soft with tenderness in the right upper quadrant with guarding. No rebound or rigidity. No CVA tenderness EXTREMITIES: diffuse tenderness to the right knee, no obvious deformity. No edema or erythema. DP pulse 2 +. Sensation intact. SKIN: Warm, dry, no rash. NEURO: No focal deficits. Alert and oriented x3 Course Vital Signs Vital signs: Vital Si
[2024-04-07 11:44] LABS: Prothrombin Time 13.9 Seconds (11.1-14.7)
[2024-04-07 11:45] LABS: Partial Thromboplastin Time 21.8 Seconds (22.3-36.8)
[2024-04-07 11:52] LABS: Lipase 53 U/L (23-300); Magnesium 1.6 mg/dL (1.6-2.3)
[2024-04-07 11:53] LABS: Ethanol < 10 mg/dL (<10)
[2024-04-07] MEDS: ONDANSETRON INJ 4 MG/2 ML VIAL IV PUSH (11:53)
[2024-04-07] MEDS: LACTATED RINGERS 1,000 ML 999 ML IV CONT (11:59)
[2024-04-07] MEDS: DEXTROSE 5%/LACTATED RINGERS 1,000 ML 999 ML IV CONT ×2 (11:59→12:53)
[2024-04-07] MEDS: THIAMINE HCL 200 MG/2 ML VIAL 100 MG IV PUSH (11:59)
[2024-04-07 12:01] LABS: D Dimer 0.99 ug/mL (<0.48)
[2024-04-07 12:05] LABS: NT Pro B Type Natriuretic Pept 56 pg/mL (19.9-100); Troponin I < 0.012 ng/mL (0.000-0.034)
[2024-04-07] MEDS: PANTOPRAZOLE SODIUM IV 40 MG VIAL IV PUSH (13:39)
[2024-04-07 14:15] LABS: Anion Gap 11 mmol/L (4-12); Blood Urea Nitrogen 3 mg/dL (7-17); Calcium 9.4 mg/dL (8.4-10.2); Carbon Dioxide 26 mmol/L (22-30); Chloride 95 mmol/L (98-107); Estimated CRCL calculation 115 ml/min; Estimated Glomerular Filt Rate > 60; Glucose 96 mg/dL (65-110); Potassium 3.5 mmol/L (3.4-5.0); Sodium 132 mmol/L (137-145)
[2024-04-07 14:58] LABS: Add Urine Microscopic? NO; Appearance Urine Clear (Clear); Bilirubin Urine Negative (Negative); Blood Urine Negative (Negative); Color Urine Yellow (Yellow); Glucose Urine UA 2+ mg/dL (Negative); Ketones Urine 1+ mg/dL (Negative); Leukocyte Esterase Ur Negative LEU/UL (Negative); Nitrate Urine Negative (Negative); Protein Urine Negative (Negative); Specific Grav Ur > 1.045 (1.001-1.035); Urobilinogen Urine 0.2 mg/dL (<2.0); pH Urine 6.5 (5.0-9.0)
[2024-04-07 15:25] VITALS: BP 147/77; PULSE 88; RESP 16; TEMP 36.7; O2SAT 100
[2024-04-07 16:39] VITALS: BP 132/78; PULSE 77; RESP 16; TEMP 36.7; O2SAT 100
== END 2024-04-07 16:40 | disposition home or self-care (01) ==
PROVIDERS: Emergency Provider Physician Assistant; PCP Hospitalist
DX: K29.20 Alcoholic gastritis without bleeding (principal); E86.0 Dehydration; R55 Syncope and collapse; E87.29 Other acidosis; S09.90XA Unspecified injury of head, initial encounter; F10.20 Alcohol dependence, uncomplicated; Y90.0 Blood alcohol level of less than 20 mg/100 ml; F43.10 Post-traumatic stress disorder, unspecified; F17.290 Nicotine dependence, other tobacco product, uncomplicated; W18.39XA Other fall on same level, initial encounter; K76.0 Fatty (change of) liver, not elsewhere classified; R16.0 Hepatomegaly, not elsewhere classified; S70.02XA Contusion of left hip, initial encounter; R94.31 Abnormal electrocardiogram [ECG] [EKG]; R93.41 Abnormal radiologic findings on diagnostic imaging of renal pelvis, ureter, or bladder
CPT/HCPCS: 36415; 70450; 71046; 71275; 72125; 73564; 74177; 76705; 80048; 80053; 81003; 81025; 82077; 83690; 83735; 83880; 84484; 85025; 85380; 85610; 85730; 93005; 96361; 96374; 96375; 99284; J2405; J2470; J3411; J7120; J7121; Q9967

== ENCOUNTER 2024-06-06 18:20 | Emergency (ER) | payer OTHER, SELFPAY ==
--- NOTE | ~2024-06-06 | XR_ITS ---
XR chest 2V Ordering provider: Stewart Hernandez MD History: 28 years Female with . chest pain, NAUSEAS . Comparison: None. FINDINGS: MEDIASTINUM: The cardiac silhouette is not enlarged. LUNGS: No infiltrates, effusions or pneumothorax. OTHER: No free air under the diaphragm. IMPRESSION: No acute cardiopulmonary pathology. Reviewed, dictated and finalized at location A. NE RETAILER
[2024-06-06 18:36] VITALS: BP 114/75; PULSE 86; RESP 17; TEMP 36.8; O2SAT 100
--- NOTE | 2024-06-06 18:36 | ECG_ITS ---
Test Date: 2024-06-06 18:56:26 Measurements Intervals [place] Rate: 109 P: 74 MA: 146 QRS: 71 QRSD: 77 T: 58 QT: 328 QTc: 443 Interpretive Statements SINUS TACHYCARDIA POSSIBLE LEFT ATRIAL ENLARGEMENT [-0.1mV P WAVE IN V1/V2] NONSPECIFIC T-WAVE ABNORMALITY ABNORMAL RHYTHM ECG Compared to ECG 04/07/2024 10:49:37 Sinus rhythm no longer present Sinus arrhythmia no longer present Possible ischemia no longer present T-wave abnormality still present Electronically Signed On 06-07-2024 09:50:53 TYPER by Adriel Haddad M.D.
--- NOTE | 2024-06-06 18:37 | PC.NURSE ---
pt reports to this RN she is having chest pain. chest pain protocol ordered.
[2024-06-06 18:56] LABS: Basophils Absolute Auto 0.1 K/mm3 (0.0-0.1); Basophils Percent Auto 1.3 % (0.2-1.2); Hematocrit 39.8 % (37.0-47.0); Hemoglobin 12.7 g/dL (12.0-15.0); Immature Granulocyte Absolute 0.01 K/mm3 (0.00-0.031); Immature Granulocyte Percent A 0.3 % (0-0.5); Lymphocytes Absolute Auto 1.29 K/mm3 (0.9-3.2); Lymphocytes Percent Auto 33.8 % (18.3-44.2); Mean Corpuscular HGB Conc 31.9 g/dl (32-36); Mean Corpuscular Hemoglobin 23.6 pg (26-34); Mean Platelet Volume 11.1 fl (7.4-10.4); Monocytes Absolute Auto 0.2 K/mm3 (0.1-0.6); Monocytes Percent Auto 5.8 % (2.6-8.5); Neutrophils Absolute Auto 2.3 K/mm3 (1.3-6.7); Neutrophils Percent Auto 58.8 % (45.5-73.1); Platelet Count Result 298 k/mm3 (150-375); Red Blood Count 5.38 M/mm3 (4.2-5.4); White Blood Count 3.8 K/mm3 (4.5-10.0)
[2024-06-06 19:04] LABS: Ethanol 200 mg/dL (<10)
[2024-06-06 19:10] LABS: Alanine Aminotransferase 24 U/L (6-35); Albumin Level 5.2 g/dL (3.5-5.1); Alkaline Phosphatase 83 U/L (38-126); Anion Gap 26 mmol/L (4-12); Aspartate Amino Transferase 52 U/L (14-36); Bilirubin,Total 0.7 mg/dL (0.2-1.3); Blood Urea Nitrogen 6 mg/dL (7-17); Calcium 8.9 mg/dL (8.4-10.2); Carbon Dioxide 6 mmol/L (22-30); Chloride 105 mmol/L (98-107); Estimated CRCL calculation 110 ml/min; Estimated Glomerular Filt Rate > 60; Glucose 66 mg/dL (65-110); Lipase 73 U/L (23-300); Potassium 4.4 mmol/L (3.4-5.0); Sodium 137 mmol/L (137-145)
[2024-06-06 19:15] LABS: Partial Thromboplastin Time 23.4 Seconds (22.3-36.8); Prothrombin Time 13.7 Seconds (11.1-14.7)
[2024-06-06 19:16] LABS: Troponin I < 0.012 ng/mL (0.000-0.034)
[2024-06-06 19:31] LABS: Ovalocytes 1+; Platelet Estimate Adequate (Adequate); Schistocytes None Seen
--- NOTE | 2024-06-06 21:39 | PC.NURSE ---
Pt ripped out her IV in triage. Blood was cleaned up and gauze was applied to injection site.
--- NOTE | 2024-06-06 22:08 | ECG_ITS ---
Test Date: 2024-06-06 22:48:22 Measurements Intervals [place] Rate: 80 P: 58 IA: 140 QRS: 75 QRSD: 78 T: 61 QT: 372 QTc: 431 Interpretive Statements SINUS RHYTHM WITH SINUS ARRHYTHMIA Compared to ECG 06/06/2024 18:56:26 Sinus tachycardia no longer present T-wave abnormality no longer present Electronically Signed On 06-07-2024 09:53:52 CAMERA REPAIRMAN by Adriel Haddad M.D.
--- NOTE | 2024-06-06 22:10 | PC.NURSE ---
Pt. actively vomiting. Md Calderón at bedside. verbal order given for 10mg IV compazine, administered by this RN.
[2024-06-06] MEDS: LORazepam INJ (*CRX) 2 MG/ML VIAL 1 MG IV PUSH (22:25)
[2024-06-06 22:27] VITALS: BP 145/72; PULSE 78; RESP 16; O2SAT 100
--- NOTE | 2024-06-06 22:59 | ED.ALCOHOL ---
HPI - Alcohol General Chief Complaint: Alcohol Stated Complaint: trying to self detox ETOH last drink 1 hr ago Time Seen by Provider: 06/06/24 20:45 Source: patient Mode of arrival: EMS Limitations: no limitations History of Present Illness HPI narrative: This is a 28-year-old female, with history of alcohol withdrawal, who presents to the emergency department trying to self detox from alcohol. The patient states her last drink was at approximately 16:00. Per nursing staff EMS reported the patient blood sugar of 40 for which she was given 100 mL of D10. The patient states she has also used cannabis. She complains of generalized abdominal cramping associated with vomiting and noticing streaks of blood after multiple episodes of vomiting. She has no other complaints at this time. Related Data Allergies Allergy/AdvReac Type Severity Reaction Status Date / Time No Known Allergies Allergy Verified 11/25/23 20:06 Review of Systems Review of Systems: All systems reviewed & are unremarkable except as noted in HPI and below PMFSH Past Medical History Medical History Alcohol abuse Alcoholism PTSD (post-traumatic stress disorder) Social History Social History Smoking status: Current every day smoker Tobacco type: e-cigarettes/vaping Alcohol intake: current Drinks per week: 30 Substance use: current Substance use type: marijuana Do You Feel Safe in your Home?: Yes Lack of Transportation: No Lack of Food: Never True Current Housing: I Have Housing Concerned About Future Housing: No Difficulty Paying Gas/Electric Bills: No Difficulty Paying for Meds: No Currently Unemployed: No Education: High School Diploma/GED Difficulty w/ Childcare or Family Care: No Living arrangements: alone Occupation/Education: unemployed Sexual Orientation (if Verbalized by the Patient): Lesbian, Gordon, or Homosexual Spiritual care concerns: No Exam Narrative: GENERAL: Well-developed, well-nourished, in mild distress with active vomiting HEAD: Normocephalic, atraumatic. EYES: PERRLA and EOMI. CHEST: Clear to auscultation. No respiratory distress. No wheezes rales or rhonchi HEART: Regular rate and rhythm. No murmur heard. Normal peripheral pulses. ABDOMEN: Soft, nontender, nondistended, normal active bowel sounds. EXTREMITIES: Normal range of motion. No edema. SKIN: Warm, dry, no rash. NEURO: Alert and oriented x3. No focal deficit. Moving all 4 limbs spontaneously PSYCH: Normal mood and affect. Course Course Emergency Course: 22:16 - With persistent vomiting, and small streaks of blood noted in the patient's emesis, I suspect Oliva-Soria tear. Chemistries demonstrate anion gap of 26, I suspect due to alcohol ketoacidosis. Lipase within normal limits troponin negative. Chemistries otherwise unremarkable. CBC demonstrates mildly decreased white blood cell count of 3.8 but is otherwise unremarkable. Chest x-ray (obtained after the patient started vomiting with hematemesis) not concerning for acute cardiopulmonary process. EKG unremarkable. I do not suspect ACS. CIWA score 8. Will give 1 mg Ativan and Compazine and reassess. 23:00 - On re-evaluation, the patient is resting peacefully. 23:14 - Patient signed out to over overnight ED physician, Dr. Lopez pending p.o. challenge with plan for discharge with Librium taper. Vital Signs Vital signs: Vital Signs Temperature 98.2 F 06/06/24 18:36 Pulse Rate 86 06/06/24 18:36 Respiratory Rate 17 06/06/24 18:36 Blood Pressure 114/75 06/06/24 18:36 Pulse Oximetry 100 06/06/24 18:36 Temperature 98.2 F 06/06/24 18:36 Pulse Rate 78 06/06/24 22:27 Respiratory Rate 16 06/06/24 22:27 Blood Pressure 145/72 H 06/06/24 22:27 Pulse Oximetry 100 06/06/24 22:27 MDM - Alcohol MDM Narrative Medical decision making narrative: Plan: Labs, imaging, EKG, antiemetics, test, reassess Differential Diagnosis Differential diagnosis: Likely alcohol ketoacidosis, alcohol withdrawal syndrome and other ( Oliva-Soria tear, metabolic abnormality, ACS, other) Lab Data 06/06/24 18:45 06/06/24 18:45 Labs: Lab Results 06/06/24 Range/Units 18:45 WBC 3.8 L (4.5-10.0) K/mm3 RBC 5.38 (4.2-5.4) M/mm3 Hgb 12.7 (12.0-15.0) g/dL Hct 39.8 (37.0-47.0) % MCV 74.0 L (80-100) fl MCH 23.6 L (26-34) pg MCHC 31.9 L (32-36) g/dl RDW 17.0 H (11.5-14.5) % Plt Count 298 (150-375) k/mm3 MPV 11.1 H (7.4-10.4) fl Immature Gran % (Auto) 0.3 (0-0.5) % Neut % (Auto) 58.8 (45.5-73.1) % Lymph % (Auto) 33.8 (18.3-44.2) % Latimer % (Auto) 5.8 (2.6-8.5) % Eos % (Auto) 0.0 (0-4.4) % Baso % (Auto) 1.3 H (0.2-1.2) % Lymph # (Auto) 1.29 (0.9-3.2) K/mm3 Latimer # (Auto) 0.2 (0.1-0.6) K/mm3 Eos # (Auto) 0.0 (0-0.3) K/mm3 Baso # (Auto) 0.1 (0.0-0.1) K/mm3 Abs Immat Gran (auto) 0.01 (0.00-0.031) K/mm3 Absolute Neuts (auto) 2.3 (1.3-6.7) K/mm3 Absolute Nucleated RBC 0.000 (0.0-0.012) K/mm3 Nucleated RBC % 0.0 (0.0-0.2) % Platelet Estimate Adequate (Adequate) Ovalocytes 1+ Schistocytes None seen PT 13.7 (11.1-14.7) Seconds INR 1.0 APTT 23.4 (22.3-36.8) Seconds Sodium 137 (137-145) mmol/L Potassium 4.4 (3.4-5.0) mmol/L Chloride 105 (98-107) mmol/L Carbon Dioxide 6 L (22-30) mmol/L Anion Gap 26 H (4-12) mmol/L BUN 6 L (7-17) mg/dL Creatinine 0.70 (0.7-1.0) mg/dL Estim Creat Clear Calc 110 ml/min Estimated GFR > 60 (59 - ) Glucose 66 (65-110) mg/dL Calcium 8.9 (8.4-10.2) mg/dL Total Bilirubin 0.7 (0.2-1.3) mg/dL AST 52 H (14-36) U/L ALT 24 (6-35) U/L Alkaline Phosphatase 83 (38-126) U/L Troponin I < 0.012 (0.000-0.034) ng/mL Total Protein 9.0 H (6.3-8.2) g/dL Albumin 5.2 H (3.5-5.1) g/dL Lipase 73 (23-300) U/L Ethyl Alcohol 200 (<10) mg/dL Imaging Data Radiologist's impression: ITS Impressions Chest X-Ray 06/06/24 20:44 IMPRESSION: No acute cardiopulmonary pathology. ECG Data EKG #1: Attestation: I personally reviewed and interpreted this ECG as follows: ECG completion date: 06/06/24 ECG completion time: 15:56 Prior ECG tracings: available for review Interpretation: Sinus tachycardia, rate 109, normal axis, no ST segment elevations or T-wave inversions concerning for ischemia, normal intervals with QTC of 443. Compared to EKG done in April 2024, there are no significant changes. Discharge Plan Discharge Clinical Impression: Oliva-Soria tear Alcohol withdrawal Qualifiers: Complication of substance-induced condition: uncomplicated Qualified Code(s): F10.930 - Alcohol use, unspecified with withdrawal, uncomplicated Nausea & vomiting Qualifiers: Vomiting type: unspecified Qualified Code(s): R11.2 - Nausea with vomiting, unspecified Patient Disposition: Home, Self-Care Condition: Stable Instructions: Antibiotic Form, Alcohol Withdrawal (ED) Additional Instructions: You were seen in the emergency department. your labs and EKG are not concerning for injury to the heart or major injury to the esophagus. I suspect with your repeat vomiting, you have a small tear in the esophagus. I recommend nausea medications and follow-up with a primary care doctor. I recommend a course of Librium to assist in alcohol withdrawal and follow-up with outpatient detoxification services. If you develop seizures, chest pain, shortness of breath, or if you have other emergent concerns for life, limb, or eyesight, return to the emergency department. Patient Language: Somali Prescriptions: Changed chlordiazepoxide HCl 25 mg capsule 25 mg PO Q6H Qty: 15 0RF Rx Instructions: Day 1: take 2 caps every 6 hours, Day 2: take 1 cap every 6 hours, Day 3: take 1 cap every 12 hours, Day 4: take 1 cap at night, then discontinue No Action thiamine HCl (vitamin B1) 100 mg tablet 100 mg PO DAILY Qty: 30 0RF folic acid 1 mg tablet 1 mg PO DAILY Qty: 30 0RF chlordiazepoxide HCl 25 mg capsule 25 mg PO BID PRN (Reason: alcohol withdrawal) Qty: 30 0RF ondansetron 4 mg tablet,disintegrating 4 mg PO Q8H Qty: 20 0RF pantoprazole 40 mg tablet,delayed release (DR/EC) 40 mg PO HS Qty: 30 0RF Follow-up/Referrals: Johnny,MD Morgan [Primary Care Provider] - 1 Week Time of Disposition: 23:21
[2024-06-07 01:32] LABS: Troponin I < 0.012 ng/mL (0.000-0.034)
[2024-06-07 02:18] VITALS: BP 132/68; PULSE 95; RESP 15; TEMP 36.6; O2SAT 98
== END 2024-06-07 02:19 | disposition home or self-care (01) ==
PROVIDERS: Emergency Medicine; Emergency Provider Preventive Medicine Aerospace Medicine; PCP Hospitalist
DX: F10.230 Alcohol dependence with withdrawal, uncomplicated (principal); Y90.7 Blood alcohol level of 200-239 mg/100 ml; R11.2 Nausea with vomiting, unspecified; K22.6 Gastro-esophageal laceration-hemorrhage syndrome; F17.290 Nicotine dependence, other tobacco product, uncomplicated; R94.31 Abnormal electrocardiogram [ECG] [EKG]; R00.0 Tachycardia, unspecified
CPT/HCPCS: 36415; 71046; 80053; 82077; 83690; 84484; 85025; 85610; 85730; 93005; 96374; 99284; J0780; J2060

== ENCOUNTER 2024-08-04 06:46 | Emergency (ER) | payer OTHER, SELFPAY ==
[2024-08-04 06:45] VITALS: BP 138/96; PULSE 96; RESP 12; TEMP 36.7; O2SAT 100
[2024-08-04 07:19] VITALS: BP 109/72; PULSE 88; RESP 16; TEMP 36.6; O2SAT 100
--- OUTSIDE RECORDS SUMMARY | 2024-08-04 08:22 | XMS_ITS | Encounter Summary ---
Author Organization [facility] Healthcare Address [address] [place] [address] Care Team Providers Care Deck Lid Fitter Name Role Phone Morgan Turner MD Primary Care Provider [phone] Ashish Morrow MD Unavailable [phone] Silvia Zhang MA Unavailable Unavailable [place] [facility] Unavailable [phone] Reason for Visit * Reason Onset Date Comments Medical Question/Miscellaneous 07/23/2024 Encounter Details Date Type Department Care Team (Late st Contact Info) Description 07/23/2024 Telephone Family Physicians [facility] [address] [place] [address] Morgan Turner MD [address] [place] [address] Medical Question/Miscellaneous Social History Tobacco Use Types Packs/Day Years Used Date Smoking Tobacco: Every Day Vaping Alcohol Use Standard Drinks/Week Comments Yes 0 (1 standard drink = 0.6 oz pur e alcohol) Pint of alcohol a day [facility] Utilities Answer Date Recorded In the past 12 months has [employer] electric, gas, oil, or water company threatened to shut off services in your home? No 07/25/2024 Social Connection and Isolat ion Panel [NHANES] Answer Date Recorded In a typical week, how many times do you talk on the phone with family, friends, or neighbors? More than three times a week 07/25/2024 How often do you get togethe r with friends or relatives? Three times a week 07/25/2024 How often do you attend chur ch or quaker services? Never 07/25/2024 Do you belong to any clubs o r organizations such as religion groups, unions, fraternal or athletic groups, or school groups? No 07/25/2024 How often do you attend meet ings of the clubs or organizations you belong to? Never 07/25/2024 Are you , , di vorced, , never , or living with a partner? Never 07/25/2024 Overall Financial Resource Strain (CARDIA) Answe r Date Recorded How hard is it for you to pa y for the very basics like food, housing, medical care, and heating? Hard 07/25/2024 PHQ-2 Answer Date Recorded PHQ-2 Total Score (If total score is 3 or more points, staff should administer the PHQ-9) 6 01/18/2024 Hunger Vital Sign Answer Date Recorded Within the past 12 months, y ou worried that your food would run out before you got the money to buy more. Never true 07/25/19 25 Within the past 12 months, t he food you bought just didn't last and you didn't have money to get more. Never true 07/25/2024 PRAPARE - Transportation Answer Date Re corded In the past 12 months, has l ack of transportation kept you from medical appointments or from getting medications? No 07/05 In the past 12 months, has l ack of transportation kept you from meetings, work, or from getting things needed for daily living? Yes 07/25/2024 Housing Stability Vital Sign Answer Derrick e Recorded In the last 12 months, was t here a time when you were not able to pay the mortgage or rent on time? No 07/25/2024 In the past 12 months, how m any times have you moved where you were living? 0 07/25/2024 At any time in the past 12 m [facility], were you homeless or living in a fpc (including now)? No 07/25/2024 Personal Safety Answer Date Recorded Have you ever been in or are you currently in a harmful physical or emotional relationship or is someone making you feel afraid or unsafe? Denies 07/23/2024 Education Answer Date Recorded What is the highest level of school you have completed or the highest degree you have received? GED or equivalent 05/2024 Comments Unknown Sex and Gender Information Value Date Recorded Sex Assigned at Not on file Legal Sex Female 6:50 PM INTEGRATED CIRCUIT LAYOUT DESIGNER Gender Identity Not on file Sexual Orientation Not on file documented as of this encounter Miscellaneous Notes * Telephone Encounter - Nena Souza MA - 07/24/2024 10:21 AM INTEGRATED CIRCUIT LAYOUT DESIGNER Patient notified. See political advisor encounter from 07/22. GRATED CIRCUIT LAYOUT DESIGNER * Telephone Encounter - Nena Souza MA - 07/23/2024 3:59 PM INTEGRATED CIRCUIT LAYOUT DESIGNER Dr. Turner, please advise. Also see political advisor encounter from 07/22 that was routed to you today. Thankyou. GRATED CIRCUIT LAYOUT DESIGNER * Telephone Encounter - Ezequiel Watters - 07/23/2024 3:16 PM CST Medical Question/Miscellaneous Caller???s Concern: Caller wants to be advised if she can take naltrexone Hydrochloride 50 mg and librium For alcohol dependency. Caller states if she cannot answer callback, information can be [facility] Please call patient. Sending high priority Does message need to be routed? Yes-Action Needed GRATED CIRCUIT LAYOUT DESIGNER documented in this encounter Plan of Treatment Upcoming Encounters Date Type Department Care Team (Latest Contact Info) Description 12/11/2024 12:00 PM CDT Hospital Encounter [address] [address] Ashsih Morrow MD [address] [place] [address] DR MCCONNELL [address] [place] [id number] 12/11/2024 12:00 PM CDT - 12/11/2024 12:35 PM CDT Surgery [address] [place] [address] Ashish Morrow MD [address] [place] [address] DR [address]CC[address] [place] [address] ESOPHAGOGASTRODUODENOSCOPY Scheduled Procedures Name Priority Associated Diagnoses Date/Ti ma ESOPHAGOGASTRODUODENOSCOPY Erosive esophagitis 12/11/2024 12:00 PM CDT documented as of this encounter Visit Diagnoses Not on filedocumented in this encounter Care Teams Deck Lid Fitter Relationship Specialty Start Date End Date Morgan Turner MD [address] [place] [address] PCP - General Family Medicine 01/18/24 Ashish Morrow MD [address] [place] [address] [address] [place] [address] Consulting Physician Gastroenterology 06/09/24 Silvia Zhang MA [address] [facility] [address] [place] [address] ACO Care Rehabilitation Liaison 07/24/24 07/24/24 Loida Aburto, LIBRARY SCIENCE INSTRUCTOR[address] [place] [address] Scientific Programmer Analyst 07/25/24 documented as of this encounter
--- OUTSIDE RECORDS SUMMARY | 2024-08-04 08:22 | XMS_ITS | Encounter Summary ---
Author Organization [facility] Healthcare Address [address] [place] [address] Care Team Providers Care Coal Hauler Operator Name Role Phone Morgan Turner MD Primary Care Provider [phone] Ashish Morrow MD Unavailable [phone] Loida Aburto [facility] Unavailable [phone] Reason for Visit * Reason Onset Date Comments Alcohol Problem 07/29/2024 Encounter Details Date Type Department Care Team (Late st Contact Info) Description 07/29/2024 Nurse Triage Family Physicians [facility] [address] [facility] [place] [address] Morgan Turner MD [address] [place] [address] Social History Tobacco Use Types Packs/Day Years Used Date Smoking Tobacco: Every Day Vaping Alcohol Use Standard Drinks/Week Comments Yes 0 (1 standard drink = 0.6 oz pur e alcohol) Pint of alcohol a day [facility] Utilities Answer Date Recorded In the past 12 months has [employer] electric, gas, oil, or water company threatened [...] often do you attend chur ch or pentecostalism services? Never 07/25/2024 Do you belong to any clubs o r organizations such as denominational groups, unions, fraternal or athletic groups, or [...] any time in the past 12 m [facility], were you homeless or living [...] on file Legal Sex Female 6:50 PM PYROGLAZER Gender Identity Not on file Sexual Orientation Not on file documented as of this encounter Miscellaneous Notes * Telephone Encounter - Deirdre Isaac RN - 08/03/2024 9:24 AM CST Received call from patient regarding itchy rash all over my body that she believes is related to the Vivitrol injection received 07/26/2024. Patient reports symptom onset three days later . Patient's only complaint is itchiness. Patient denies swelling of the face/lips/tongue/throat, difficulty breathing, and chest pain. Recommended patient treat symptoms with pruo-tgn-[id number] medications, such as antihistamines (Zyrtec), Pepcid, and diphenhydramine. Also recommended oatmeal baths and anti-itch lotions. Patient verbalized understanding and was appreciative of information. Patient stated she will go to the Emergency Room if her symptoms worsen, otherwise she is already scheduled for follow-up with Dr. Turner on 08/08/2024. GLAZER * Telephone Encounter - YukoOctober - 08/03/2024 9:16 AM CST Call Back Caller???s Concern: warm trans to back line Does message need to be routed? No GLAZER * Telephone Encounter - Barby Chacon MA - 07/30/2024 1:31 PM CST Reached out to pt phone, message states the call can not be processed. Reached out to pt Father, Eduardo Saleh, listed on HIPAA and left voicemail requesting return call. GLAZER * Telephone Encounter - Barby Chacon MA - 07/30/2024 9:24 AM CST Please roofer apprentice note and advise. GLAZER * Telephone Encounter - Savana Rolle RN - 07/29/2024 2:03 PM CST Nguyen Saleh with hx of alcohol dependence calling for further recommendations. Last alcohol on 07/24 & 07/25. Received Vivitrol injection in PCP office on 07/25 and has not drank since. Pt also has a Librium prescription currently. Per order, she was to take 1 capsule TID x 5 days, 1 capsule BID for 5 days, then 1 capsule daily x 5 days. She took her first dose in the evening on 07/24, two hours after her last drink, per PCP direction (see Nurse triage encounter 07/22). Most recent dose of Librium was today at 1400. She took another dose this AM. States today she started craving alcohol more intensely than she ever has in this whole process. Says she has already been trying to distract her self today and its no longer working. She I wanting to at least smell alcohol of drink an NA beer. Told her that could lead to a slippery slope of wanting more - she says she thinks she can restrain herself from actually drinking. If she is unable to restrain herself, she is wondering how long she should wait after taking Librium before she can drink alcohol without overdosing and causing harm toherself. Notes that in the past she drank after receiving her Vivitrol shot and was vomiting blood & is fearful of this happening again. Pt does have a control and recovery special tactics but states she cannot reach out to her since it is a Tuesday. Father is with her currently and has been supportive. Does note some nausea earlier today around 1300. Took her hydroxyzine prescribed by psych which provided relief. Denies any other physical symptoms at this time. call center team leader provider recommends pt reach out to different helpline resources or proceed to ED if she feels she needs additional medication or assistance with her current alcohol cravings. Pt made aware of recommendations. Pt declines information/phone numbers for [employer] & AA. States she does not want to go to ED because she believes they will lock her up. Says usually Vivitrol lasts her 28 days before she feels she needs to drink again. Says she doesn'tnormally have urges or cravings. Says she uses alcohol as a coping mechanism. She thinks her anxiety is heightened at this time due to a recent event which could be causing her intense urge to drink.Did not want to elaborate on the recent event. Says she is not used to coping with her feelings. Pthas hx of suicidal and homicidal ideations but denies at this time. She says she plans to drink again in a few weeks once the Vivitrol is out of her system. States she has been taking the Vivitrol for her dad & at her friend's request. States next time she ever takes it again it is going to be for her not for others. Encouraged her to reach out to any supportive family or friends today & to reach out to her psych provider tomorrow. Routing to Morgan Turner MD's office for any further recommendations for pt. Reason for Disposition Alcohol use and unhealthy use, questions about Protocols used: Alcohol Use and Mkzngrwz-Wdhzc-IW GLAZER * Telephone Encounter - Savana Rolle RN - 07/29/2024 1:55 PM CST Regarding: Urges to drink ----- Message from Hiral Stapleton sent at 07/29/2024 1:45 PM PYROGLAZER ----- Chief concern: Urges to drink Duration: 07/29/2024 Callback #: [phone] Additional Comments: Recently had a Vivitrol 07/26 shot on , will be taking Librium at 1345 GLAZER documented in this encounter Plan of Treatment Upcoming Encounters Date Type Department Care Team (Latest Contact Info) Description 12/11/2024 12:00 PM CDT Hospital Encounter [facility] [address] [place] [address] Ashish Morrow MD [address] [place] [address] 12/11/2024 12:00 PM CDT - 12/11/2024 12:35 PM CDT Surgery [facility] [address] [place] [address] Ashish Morrow MD [address] [place] [address] DR MCCONNELL [address] [place] [address] ESOPHAGOGASTRODUODENOSCOPY Scheduled Procedures Name Priority Associated Diagnoses Date/Ti wi ESOPHAGOGASTRODUODENOSCOPY Erosive esophagitis 12/11/2024 12:00 PM CDT documented as of this encounter Visit Diagnoses Not on filedocumented in this encounter Care Teams Coal Hauler Operator Relationship Specialty Start Date End Date Morgan Turner MD [address] [place] [address] PCP - General Family Medicine 01/18/24 Ashish Morrow MD [address] [place] [address] [address] MCCONNELL [address] [place] [address] Consulting Physician Gastroenterology 06/09/24 Loida Aburto, GAMEWELL OPERATOR [address] [place] [address] [place] [address] Cnc Operator Programmer 07/25/24 documented as of this encounter
--- OUTSIDE RECORDS SUMMARY | 2024-08-04 08:22 | XMS_ITS | Data Portability ---
Author Organization [facility] Address [address] [place] [address] Assessment No assessment recorded. Plan of Treatment Reminders Order Date Submit Date Provider Last Modified By Organization Details Last Modified Time Details Appointments None recorded. Lab None recorded. Referral orthopedic referral - Please call patient to schedule 2015 016 ATHENAFAX Not available 6 11:54:00 physical therapy knee referral 2015 016 [facility] Physical, Occupational & Speech Medicine & Rehab, [address] [place], [address], 6 11:42:53 Procedures None recorded. Surgeries None recorded. Imaging x-ray, knee 2015 016 BENITO Not available 6 15:52:54 Medication Orders Pepcid 20 mg tablet 2015 016 jhsi Not available 6 10:55:28 Patient TargetsNo targets recorded. Patient InstructionsNo instructions recorded. Reason for Referral Orthopedic Referral for Knee joint painful on movement Please call patient to schedule Referring Physician: Dheeraj Camacho, Internal Medicine, Encounter Date: 08/27/2015 Referring Physician: Dheeraj gabriel, Internal Medicine, Encounter Date: 08/27/2015 Results Created Date Observation Date Name Description Value Unit Range Abnormal Flag Note LastModifiedBy Organization Detail LastModifiedTime 08/27/19 16 08/27/2015 x-ray , knee No observ ation record ed. [facility] (Imaging) [address] [place], [address], 08/28/2015 11:26:06 08/27/19 16 08/27/2015 x-ray , knee No observ ation record ed. [address] (Imaging) [address] [place], [address], 08/27/2015 22:42:38 08/28/19 16 08/27/2015 x-ray , knee No observ ation record ed. [facility] (Imaging) [address] [place], [address], 09/02/2015 12:35:59 11/11/19 19 11/10/2018 XR, ankle No observ ation record ed. [facility] (Imaging) [address] [place], [address], 11/10/2018 15:43:48 Result Notes None recorded. Problems Name Problem SNOMED Code Status Onset Date Resolution Date Notes Provider Name and Address Organization Details Recorded Time Knee joint painful on movement [id number] Active Dheeraj Camacho MD Attn: Accounting ,[address] [place], [address] , [facility] 6 10:55:27 Problem Notes None recorded. Procedures Surgical History None recorded. Imaging Results Imaging Date Name Status LastModified by [facility] Details LastModified Time 08/27/2015 x-ray, knee completed [facility] (Imaging) [address] [place], [address], 08/28/2015 11:26:06 08/27/2015 x-ray, knee completed [address] (Imaging) [address] [place], [address], 08/27/2015 22:42:38 08/27/2015 x-ray, knee completed [facility] (Imaging) [address] [place], [address], 09/02/2015 12:35:59 11/10/2018 XR, ankle completed [facility] (Imaging) [address] [place], [address], 11/10/2018 15:43:48 Procedure Notes None recorded. Medical Equipment None Reported. Allergies No known drug allergies Medications Name Sig Start Date Stop Date Status Note LastModified by Organization Details LastModified Time azithromycin 250 mg tablet active Not Available Not Availabl e Not Available ibuprofen 800 mg tablet active Not Available Not Available No t Available tramadol 50 mg tablet active Not Available Not Available Not Available meloxicam 7.5 mg tablet active Not Available Not Available No t Available famotidine 20 mg tablet Take 1 tablet twice a day by oral route with meals for 30 days. active Not Available Not Available No t Available benzonatate 100 mg capsule active Not Available Not Availab le Not Available Vitals Date Recorded Body temperature Heart rate Oxygen saturation Oxygen saturation in Arterial blood by Pulse oximetry Body weight Body height Body mass index (BMI) Systolic blood pressure Diastolic blood pressure Provider Name and Address Organization Details Last Updated DateTime 6 97.4 [degF] 79 /min 100 % 100 % 85217.5 16771 g 168.91 cm 21.8 kg/m2 110 mm[Hg] 78 mm[Hg] Dao Mitchell MA [facility] 6 10:39:02 Social History Question Answer Notes LastModified by Organizat ion Details LastModified Time What Is Your Level Of Alcohol Consumption? Occasional [email or web address] Information not available 08/27/2015 Sex: Unknown Functional Status None recorded. Mental Status None recorded. Family History Nothing Reported. Medical History Condition Response Headaches Y Gynecological HistoryNo gynecological history recorded. Obstetrics History GPAL:G 0 P 0 0 0 0 Past Encounters Encounter ID Performer Location Encounter Start Date Encounter Closed Date Diagnosis/Indication Diagnosis SNOMED-CT Code Diagnosis ICD10 Code Diagnosis Note [id number] Francia Machado (Adult Med) [address] [place] [address] 08/27/2015 09:54:18 08/27/2015 10:59:53 Knee joint painful on movement 934102458 M25.569 Health Concerns Section Related Observation LastModified by Organization Detai ls LastModified Time None Recorded Concern Status LastModified by Organization Details LastModified Time None Recorded Advance Directives Directive None Recorded Payers Encounter Date Sequence Insurance Name Policy Number Policy Russell Covered Member ID Russell Member ID Guarantor Name 08/27/2015 1 [facility] (MEDICAID HMO) Nguyen Saleh [id number] Nguyen Saleh Notes Date Note Type Note Provider Name and Address Organization Details Recorded Time 08/27/2015 text/html Right knee pain since she bumted on the corner of [place] March 2015. Dheeraj Camacho MD Attn: Accounting,[address] [facility], [place], [address], [facility] 08/27/2015 10:56:33 OBGyn Episode No OBEpisode recorded.
--- OUTSIDE RECORDS SUMMARY | 2024-08-04 08:22 | XMS_ITS | Encounter Summary ---
Author Organization [facility] Healthcare Address [address] [place] [address] Care Team Providers Care Protozoologist Name Role Phone Morgan Turner MD Primary Care Provider [phone] Ashish Morrow MD Unavailable [phone] Loida Aburto [facility] Unavailable [phone] Encounter Details Date Type Department Care Team (Late st Contact Info) Description 07/25/2024 Telephone Family Physicians [facility] [address] [facility] [place] [address] Morgan Turner MD [address] [place] [address] Social History Tobacco Use Types Packs/Day Years Used Date Smoking Tobacco: Every Day Vaping Alcohol Use Standard Drinks/Week Comments Yes 0 (1 standard drink = 0.6 oz pur e alcohol) Pint of alcohol a day [facility] Utilities Answer Date Recorded In the past 12 months has [employer], gas, oil, or water [employer] threatened to shut off services in your [...] week 07/25/2024 How often do you attend [facility] or religion services? Never 07/25/2024 Do you belong to any clubs o r organizations such as orthodoxy groups, unions, fraternal or athletic groups, or [...] any time in the past 12 m [facility], were you homeless or living in a long-term (including now)? 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 Gender Identity Not on file Sexual Orientation Not on file documented as of this encounter Miscellaneous Notes * Telephone Encounter - Bridget Geiger - 07/25/2024 9:07 AM CST Y MANAGER documented in this encounter Plan of Treatment Upcoming Encounters Date Type Department Care Team (Latest Contact Info) Description 12/11/2024 12:00 PM CDT Hospital Encounter [address] [address] Ashish Morrow MD [address] [place] [address] [place] [address] 12/11/2024 12:00 PM CDT - 12/11/2024 12:35 PM CDT Surgery [address] [address] Ashish Morrow MD [address] [place] [address] [place] [address] ESOPHAGOGASTRODUODENOSCOPY Scheduled Procedures Name Priority Associated Diagnoses Date/Ti dc ESOPHAGOGASTRODUODENOSCOPY Erosive esophagitis 12/11/2024 12:00 PM CDT documented as of this encounter Visit Diagnoses Not on filedocumented in this encounter Care Teams Protozoologist Relationship Specialty Start Date End Date Morgan Turner MD [address] [place] [address] PCP - General Family Medicine 01/18/24 Ashish Morrow MD [address] [place] [address] [place] [address] Consulting Physician Gastroenterology 06/09/24 Loida Aburto, [address] [place] [address] Trouble Shooting Mechanic 07/25/24 documented as of this encounter
--- OUTSIDE RECORDS SUMMARY | 2024-08-04 08:22 | XMS_ITS | Encounter Summary ---
Author Organization [facility] Healthcare Address [address] [place] [address] Care Team Providers Care Clinical Sciences Professor Name Role Phone Morgan Turner MD Primary Care Provider [phone] Ashish Morrow MD Unavailable [phone] Loida Aburto [facility] Unavailable [phone] Reason for Visit * Reason Onset Date Comments Error (Erroneous Encounter) 07/25/2024 Encounter Details Date Type Department Care Team (Late st Contact Info) Description 07/25/2024 Telephone [facility] Accountable Care Organization [address] [place] [phone] Loida Aburto, [address] [place] [address] Error (Erroneous Encounter) Social History Tobacco Use Types Packs/Day Years Used Date Smoking Tobacco: Every Day Vaping Alcohol Use Standard Drinks/Week Comments Yes 0 (1 standard drink = 0.6 oz pur e alcohol) Pint of alcohol a day [facility] Utilities Answer Date Recorded In the past 12 months has [employer], gas, oil, or water company threatened to [...] often do you attend chur ch or pentecostal services? Never 07/25/2024 Do you belong to any clubs o r organizations such as adventism groups, unions, fraternal or athletic groups, or [...] any time in the past 12 m [facility], were you homeless or living in a long term (including now)? 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 Gender Identity Not on file Sexual Orientation Not on file documented as of this encounter Plan of Treatment Upcoming Encounters Date Type Department Care Team (Latest Contact Info) Description 12/11/2024 12:00 PM CDT Hospital Encounter [address] [address] Ashish Morrow MD [address] [facility] [place] [address] 12/11/2024 12:00 PM CDT - 12/11/2024 12:35 PM CDT Surgery [address] [address] Ashish Morrow MD [address] [place] [address] [place] [address] ESOPHAGOGASTRODUODENOSCOPY Scheduled Procedures Name Priority Associated Diagnoses Date/Ti de ESOPHAGOGASTRODUODENOSCOPY Erosive esophagitis 12/11/2024 12:00 PM CDT documented as of this encounter Visit Diagnoses Not on filedocumented in this encounter Care Teams Clinical Sciences Professor Relationship Specialty Start Date End Date Morgan Turner MD [address] [place] [address] PCP - General Family Medicine 01/18/24 Ashish Morrow MD [address] [place] [address] [place] [address] Consulting Physician Gastroenterology 06/09/24 Loida Aburto, WELL LOGGER [address] [place] [address] S[place]o [address] Director Advanced 07/25/24 documented as of this encounter
--- OUTSIDE RECORDS SUMMARY | 2024-08-04 08:22 | XMS_ITS | Clinical Summary ---
Author Organization [facility] Address [address] [place] [address]. [place], [place] [address] [place] [address] Care Team Providers Care Laundry Room Attendant Name Role Phone None, Provider MD Primary Care Provider Unavaila ble Allergies Active Allergy Reactions Criticality Noted Date Comments Pollen Extract Unknown 03/20/2018 Medications famotidine (PEPCID) 20 MG tablet Take 1 tablet (20 mg total) by mouth 2 (two) times daily. 30 tablet 3 Active ondansetron (ZOFRAN-ODT) 4 MG disintegrating tablet Take 1 tablet (4 mg total) by mouth every 8 (eight) hours as needed for Nausea. 20 tablet 3 Active Social History Tobacco Use Types Packs/Day Years Used Date Smoking Tobacco: Every Day Cigarettes Smokeless Tobacco: Never Tobacco Cessation:Ready to Q uit: Not Asked; Counseling Given: Not Answered Alcohol Use Standard Drinks/Week Comments Yes 0 (1 standard drink = 0.6 oz pur e alcohol) every other day Comments No Sex and Gender Information Value Date Recorded Sex Assigned at Not on file Legal Sex Female 1:24 PM CDT Gender Identity Not on file Sexual Orientation Not on file Last Filed Vital Signs Vital Sign Reading Time Taken Comments Blood Pressure 123/67 10/28/2022 11:48 AM CDT Pulse 67 10/28/2022 11:48 AM CDT Temperature 36.8 ??C (98.2 ??F) 10/28/2022 9:10 AM CD T Respiratory Rate 18 10/28/2022 11:48 AM CDT Oxygen Saturation 95% 10/28/2022 11:48 AM CDT Inhaled Oxygen Concentration - - Weight 69.6 kg (153 lb 7 oz) 10/28/2022 9:10 AM CDT Height 175.3 cm (5' 9 ) 10/28/2022 9:10 AM CDT Body Mass Index 22.66 10/28/2022 9:10 AM CDT Plan of Treatment Health Maintenance Due Date Last Done Comments Cervical Cancer Screening Pap Smear (Age 21 to 29) Every 3 Years 1995 Cervical Cancer Screening 1995 Annual Physical 1998 Pneumococcal Vaccine: Pediatrics (0 to 5 Years) and At-Risk Patients (6 to 64 Years) (1 of 2 - PCV) 2001 Hepatitis C 2013 DTaP, Tdap and Td Vaccines (6 - Td or Tdap) 09/27/2019 09/26/2009, 03/15/2000, 1995, Additional history exists COVID-19 Vaccine ( - season) 2024 05/27/2021 Influenza Adult (#1) 2024 08/06/2020, 03/16/20 Hepatitis B Vaccines Completed 1995, 1995, 1995 Meningococcal Vaccine Aged Out 09/26/2009 No radha loi eligible based on patient's age to complete this topic HPV Vaccines Completed 04/21/2010, 09/26/2009 Meningococcal B Vaccine Aged Out No l onger eligible based on patient's age to complete this topic RSV Immunizations Under 20 Months Aged Out No longer eligible based on patient's age to complete this topic Insurance [employer] MEDICAID Care Teams Laundry Room Attendant Relationship Specialty Start Date End Date None, Provider, PCP - General 03/20/18
--- NOTE | 2024-08-04 08:23 | ED_ITS ---
HPI - Allergic Reaction General Chief complaint: Allergic Reaction Stated complaint: allergic reaction Time Seen by Provider: 08/04/24 08:17 Source: patient Mode of arrival: ambulatory Limitations: no limitations History of Present Illness HPI narrative: 29 years old female came to the ED from home by ambulance complaining of itching hives started yesterday morning. She denies any difficulty breathing or swallowing. Patient had taken a Vivitrol shot for alcohol withdrawal on which is 1 day before the beginning of her symptoms Patient been taking this medication for quite a bit of time. Patient denies history of allergy. She denied any new medications or anything different in her life over the last few weeks. Patient is telling me that she had alcohol on July 26, 2024 Related Data Allergies Allergy/AdvReac Type Severity Reaction Status Date / Time No Known Allergies Allergy Verified 08/04/24 06:58 PMFSH Past Medical History Medical History Alcohol abuse Alcoholism PTSD (post-traumatic stress disorder) Social History Social History Smoking status: Current every day smoker Tobacco type: e-cigarettes/vaping Alcohol intake: current Drinks per week: 30 Substance use: current Substance use type: marijuana Do You Feel Safe in your Home?: Yes Lack of Transportation: No Lack of Food: Never True Current Housing: I Have Housing Concerned About Future Housing: No Difficulty Paying Gas/Electric Bills: No Difficulty Paying for Meds: No Currently Unemployed: No Education: High School Diploma/GED Difficulty w/ Childcare or Family Care: No Living arrangements: alone Occupation/Education: unemployed Sexual Orientation (if Verbalized by the Patient): Lesbian, Gordon, or Homosexual Spiritual care concerns: No Exam Narrative: General appearance: Well-developed, well-nourished Skin: Scattered hives and wheals all over the body Head: Normocephalic, nontraumatic Eyes: Clear conjunctiva ENT: Oropharynx normal, ears normal, nose normal Neck: Supple, nontender Chest and respiratory: Airway patent, no respiratory distress, no accessory mu scle use Heart: Regular rate/rhythm Abdomen: Soft, nontender, no organomegaly, quiet bowel sounds Vascular: Normal peripheral pulses, normal capillary refill. 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, no gross motor deficit Course Vital Signs Vital signs: Vital Signs Temperature 36.7 C 08/04/24 06:45 Pulse Rate 96 08/04/24 06:45 Respiratory Rate 12 08/04/24 06:45 Blood Pressure 138/96 H 08/04/24 06:45 Pulse Oximetry 100 08/04/24 06:45 Oxygen Delivery Room Air 08/04/24 06:45 Temperature 36.6 C 08/04/24 07:19 Pulse Rate 88 08/04/24 07:19 Respiratory Rate 16 08/04/24 07:19 Blood Pressure 109/72 08/04/24 07:19 Pulse Oximetry 100 08/04/24 07:19 Oxygen Delivery Room Air 08/04/24 06:45 MDM - Allergic Reaction MDM Narrative Medical decision making narrative: Allergic reaction of unknown etiology, Patient should stop taking Vivitrol until she discussed it with her doctor if has anything to do with her new allergic reaction or not. Differential Diagnosis Differential diagnosis: Likely allergic reaction and adverse reaction to drug Critical Care Time Critical Care Time Critical Care Time: No Discharge Plan Discharge Clinical Impression: Allergic reaction Patient Disposition: Home, Self-Care Condition: Stable Instructions: Acute Rash (ED) Additional Instructions: Return if symptoms are worsening , call your family physician for appointment, take Tylenol as as needed for aches and pain, continue home medications. Stop taking the Vivitrol until you see your prescribing physician Patient Language: Japanese Prescriptions: New prednisone 20 mg tablet 40 mg PO DAILY 5 Days Qty: 10 0RF Zyrtec 10 mg capsule 10 mg PO BID PRN (Reason: allergy symptoms) Qty: 20 0RF No Action thiamine HCl (vitamin B1) 100 mg tablet 100 mg PO DAILY Qty: 30 0RF folic acid 1 mg tablet 1 mg PO DAILY Qty: 30 0RF chlordiazepoxide HCl 25 mg capsule 25 mg PO BID PRN (Reason: alcohol withdrawal) Qty: 30 0RF ondansetron 4 mg tablet,disintegrating 4 mg PO Q8H Qty: 20 0RF pantoprazole 40 mg tablet,delayed release (DR/EC) 40 mg PO HS Qty: 30 0RF chlordiazepoxide HCl 25 mg capsule 25 mg PO Q6H Qty: 15 0RF Rx Instructions: Day 1: take 2 caps every 6 hours, Day 2: take 1 cap every 6 hours, Day 3: take 1 cap every 12 hours, Day 4: take 1 cap at night, then discontinue Follow-up/Referrals: Johnny,MD Morgan [Primary Care Provider] -
--- OUTSIDE RECORDS SUMMARY | 2024-08-04 08:23 | XMS_ITS | Clinical Summary ---
Author Organization [facility] Address [address] [facility] [address] Phone Care Team Providers Care Oil Paint Shader Name Role Phone Provider, None Primary Care Provider Unavailabl e Allergies No known active allergies Medications * This document contains information received from the source organization and may not represent a complete record from that organization. melatonin 3 MG Tablet Take 3 mg by mouth nightly. Active QUEtiapine (SEROquel) 25 MG Tablet Take 25 mg by mouth nightly. Active chlordiazePOXIDE (LIBRIUM) 25 MG Capsule Take 25 mg by mouth 3 times daily as needed for Withdrawal. Active Active Problems Problem Noted Date Diagnosed Date Bipolar disorder, current ep isode manic severe with psychotic features 12/06/2023 Resolved Problems Problem Noted Date Diagnosed Date Resolved Date Alcohol withdrawal 12/02/2023 Family History Medical History Relation Name Comments Heart Attack Maternal Grandfather Relation Name Status Comments Maternal Grandfather Social History Tobacco Use Types Packs/Day Years Used Date Smoking Tobacco: Former Cigarettes Smokeless Tobacco: Never Tobacco Cessation:Counseling Given: Not Answered Alcohol Use Standard Drinks/Week Comments Yes 0 (1 standard drink = 0.6 oz pur e alcohol) pint/daily [facility] Utilities Answer Date Recorded In the past 12 months has th e electric, gas, oil, or water company threatened to shut off services in your home? No 12/02/2023 Hunger Vital Sign Answer Date Recorded Within the past 12 months, y ou worried that your food would run out before you got the money to buy more. Never true 12/02/19 24 Within the past 12 months, t he food you bought just didn't last and you didn't have money to get more. Never true 12/02/2023 PRAPARE - Transportation Answer Date Re corded In the past 12 months, has l ack of transportation kept you from medical appointments or from getting medications? Patient declined 12/02/2023 In the past 12 months, has l ack of transportation kept you from meetings, work, or from getting things needed for daily living? Patient declined 12/02/2023 Housing Stability Vital Sign Answer Derrick e Recorded In the last 12 months, was t here a time when you were not able to pay the mortgage or rent on time? Patient declined 12/02/19 In the last 12 months, how many places have you lived? 2 12/02/2023 In the last 12 months, was t here a time when you did not have a steady place to sleep or slept in a nursing home (including now)? Patient declined 12/02/2023 Comments Unknown Sex and Gender Information Value Date Recorded Sex Assigned at Not on file Legal Sex Female 12:42 PM CDT Gender Identity Not on file Sexual Orientation Not on file Last Filed Vital Signs Vital Sign Reading Time Taken Comments Blood Pressure 112/82 12/06/2023 2:00 PM CDT Pulse 122 12/06/2023 2:00 PM CDT pt, just got back from walking around the [place]. rn were notified Temperature 36.9 ??C (98.5 ??F) 12/06/2023 2 :00 PM CDT Respiratory Rate 20 12/06/2023 2:00 PM CDT Oxygen Saturation 100% 12/06/2023 2:0 0 PM CDT Inhaled Oxygen Concentration - - Weight 65.8 kg (145 lb) 12/02/2023 3:51 PM CDT Height 176.5 cm (5' 9.5 ) 12/02/2023 3: 51 PM CDT Body Mass Index 21.11 12/02/2023 3:51 PM CDT Plan of Treatment Health Maintenance Due Date Last Done Comments Hepatitis C Virus (HCV) Screening 1995 Pap Smear 2016 Influenza Immunization (#1) 2024 02/0 09/2020, 04/21/2019, 03/16/2019, Additional history exists SARS-COV-2 Immunization ( season) 2024 05/27/2021 Respiratory Syncytial Virus (RSV) Immunization (Adult) (1 - 1-dose 75+ series) 2070 Meningococcal Immunization (ACWY) Aged Out 09/30/2017, 09/26/2009 No longer eligibl e based on patient's age to complete this topic TdaP Immunization Completed 09/30/2017, 09/26/2009 Hepatitis B Immunization Completed 019, 11/02/2017, 09/30/2017, Additional history exists Pneumococcal Immunization Combined Aged Out No longer eligible based on patient's age to complete this topic Rotavirus Immunization Aged Out No lo nger eligible based on patient's age to complete this topic Insurance MEDICAID [employer] Advance Directives * Full Code (Latest Code Status on File) Date Activated Date Inactivated Comments 12/02/2023 8:03 PM 12/06/2023 6:47 PM CPR-Full Shira tment: FULL ARREST: Attempt Resuscitation/CPR wit intubation and mechanical ventilation. PRE-ARREST: Use entire range of life support measures to stabilize the patient. Care Teams Oil Paint Shader Relationship Specialty Start Date End Date Provider, None [place] PCP - General 12/02/23
--- OUTSIDE RECORDS SUMMARY | 2024-08-04 08:23 | XMS_ITS | Referral Summary ---
Author Organization [facility] Address [address] [place] [address] Care Team Providers Care Armor Officer Name Role Phone Morgan Turner MD Primary Care Provider [phone] Ashish Morrow MD Unavailable [phone] Loida Aburto [facility] Unavailable [phone] Encounters Date Type Department Care Team Description 08/03/19 25 Nurse Triage [facility] [address] [phone] Morgan Turner MD 07/29/19 25 Nurse Triage [facility] [address] [phone] Morgan Turner MD 07/26/19 25 Telephone [facility] [address] [phone] Morgan Turner MD Medication Problem 07/26/19 25 11:30 AM CHILD NEUROLOGIST Clinical Support [facility] [address] [phone] Alcohol dependence with uncomplicated intoxication (CMS/HCC) (HCC) (Primary Dx) 07/26/19 25 Telephone [facility] [address] [phone] Morgan Turner MD Vivitrol Injection Received 07/25/19 25 Telephone [facility] Care Organization [address] [place] [id number] Loida Aburto LCSW Error (Erroneous Encounter) 07/25/19 Nurse Triage [facility] [address] [phone] Morgan Turner MD 07/25/19 Telephone [facility] [address] [phone] Morgan Turner MD 07/25/19 Telephone [facility] [address] [phone] Morgan Turner MD Medication Request 07/24/19 [facility] ED Outreach [facility] Care Organization [address] [place] [address] Silvia Zhang MA 07/23/19 Nurse Triage [facility] [address] [phone] Zulma Obrien RN 07/23/19 [facility] [address] [place], [place] [phone] Jhon Dias 07/23/19 Telephone [facility] [address] [phone] Morgan Turner MD Medical Question/Miscellaneous 07/23/19 11:44 AM CHILD NEUROLOGIST - 07/23/19 2:11 PM CHILD NEUROLOGIST Emergency [facility] Emergency Department [address] [place] [address] Joseph Kimble MD Alcohol abuse (Primary Dx) Discharge Disposition: Discharge to home or self care 07/23/19 10:30 AM CHILD NEUROLOGIST Office Visit [facility] [address] [phone] Suzanne Jade NP Chronic alcoholic gastritis without hemorrhage (Primary Dx); Alcohol dependence with uncomplicated intoxication (CMS/HCC) (HCC) 07/22/19 25 Nurse Triage [facility] [address] [phone] Morgan Turner MD 07/21/19 Nurse Triage [facility] [address] [phone] Morgan Turner MD 07/20/19 Telephone [facility] [address] [phone] Morgan Turner MD Additional Services Or Orders; Medical Question/Miscellaneous 07/05/19 Documentation [facility] [address] [place] [address] Jhon Dias 07/05/19 1:30 PM CHILD NEUROLOGIST Office Visit [facility] [address] [phone] Morgan Turner MD Alcohol dependence with uncomplicated intoxication (CMS/HCC) (HCC) (Primary Dx); Chronic alcoholic gastritis without hemorrhage 06/20/20 Telephone [facility] Gastroenterology at [address] [place] [phone] La Tolentino 06/14/20 24 11:45 AM CHILD NEUROLOGIST Clinical Support [facility] [address] [phone] Alcohol dependence with uncomplicated intoxication (CMS/HCC) (HCC) (Primary Dx) 06/14/20 24 Telephone [facility] [address] [phone] Morgan Turner MD 06/12/20 24 Telephone [facility] [address] [phone] Morgan Turner MD Med Refill 06/11/20 24 [facility] Post Discharge Follow up phone call [facility] [address] [place] [phone] Pam Elliott 06/09/20 24 10:05 AM CHILD NEUROLOGIST - 06/09/20 24 10:35 AM CHILD NEUROLOGIST Surgery [facility] [address] [place] [address] Ashish Morrow MD ESOPHAGOGASTRODUODENOSCOPY BIOPSY 06/09/20 10:04 AM CHILD NEUROLOGIST Anesthesia Event [facility] [address] [place] [address] Ashish Morrow MD Standefer César VaishnaviJt, MACHINE TENDER 06/07/20 10:33 PM CHILD NEUROLOGIST - 06/09/20 3:09 PM CHILD NEUROLOGIST Hospital Encounter [facility] [address] [place] [address] Jacquelin Joshi MD Hanson, Thomas S., MD Petters, Ekanga Sunday, MD Nikolic, Jelena, MD Upper GI bleed (Primary Dx) Discharge Disposition: Discharge to home or self care 06/07/20 Nurse Triage [facility] [address] [phone] Morgan Turner MD 06/07/20 Documentation [facility] [address] [place] [address] Jhon Dias 06/07/20 9:30 AM CHILD NEUROLOGIST Office Visit [facility] [address] [phone] Morgan Turner MD LLQ pain (Primary Dx); Nausea and vomiting, unspecified vomiting type; Alcohol dependence with uncomplicated intoxication (CMS/HCC) (HCC); Hematemesis with nausea 06/06/20 Orders Only [facility] Health Information Management [address] [place] [address] Morgan Turner MD 06/06/20 Nurse Triage [facility] [address] [phone] Morgan Turner MD from Last 3 Months Allergies Active Allergy Reactions Criticality Noted Date Comments Levonorgestrel-Ethinyl Estrad Vomiting Low 2023 Medications QUEtiapine (SEROquel) 25 mg tablet Take 1 tablet (25 mg total) by mouth nightly 11/15/19 24 025 Active vitamin B-1 100 mg tabletIndicatio ns:PATIENT IS TAKING. Take 1 tablet (100 mg total) by mouth daily 03/29/20 24 Active naltrexone (DEPADE) 50 mg tablet Take 1 tablet (50 mg total) by mouth daily Active naltrexone microspheres (VIVITROL) 380 mg suspension,exte nded rel recon Inject 380 mg into the muscle as instructed every 30 (thirty) days 1.2 each 6 06/08/[address] (PROTONIX) 40 mg EC tabletIndicatio ns:GI Bleed,esophagit is Take 1 tablet (40 mg total) by mouth 2 (two) times a day 60 tablet 2 06/09/20 [address] (CAMPRAL) 333 mg EC tabletIndicatio ns:alcoholism Take 2 tablets (666 mg total) by mouth 3 (three) times a day 180 tablet 07/05/19 25 Active folic acid (FOLVITE) 1 mg tablet Take 1 tablet (1 mg total) by mouth daily 90 tablet 3 07/05/19 25 026 Active chlordiazePOXID E (LIBRIUM) 25 mg capsule Take 1 capsule (25 mg total) by mouth 3 (three) times a day for 5 days, THEN 1 capsule (25 mg total) 2 (two) times a day for 5 days, THEN 1 capsule (25 mg total) daily for 5 days. 30 capsule 07/24/19 25 025 Active chlordiazePOXID E (LIBRIUM) 25 mg capsule Take 1 capsule (25 mg total) by mouth 04/07/20 24 025 Discontinued aluminum-magnes ium hydroxide-simet hicone (MAALOX) suspension 200-200-20 mg/5 mL Take 30 mL by mouth 4 (four) times a day as needed for indigestion 769 mL 06/09/20 24 025 Hospital, Clinic, or Other Facility Administered Medication Ordered Dose Route Frequency Start Date End Date Status naltrexone microspheres (VIVITROL) intramuscular injection 380 mgIndications:Alcohol dependence with uncomplicated intoxication (CMS/HCC) (HCC) 380 mg IM Every 30 days 02/16/2024 Active naltrexone microspheres (VIVITROL) intramuscular injection 380 mgIndications:Alcohol dependence with uncomplicated intoxication (CMS/HCC) (HCC) 380 mg IM Every 30 days 06/14/2024 Active naltrexone microspheres (VIVITROL) intramuscular injection 380 mgIndications:Alcohol dependence with uncomplicated intoxication (CMS/HCC) (HCC) 380 mg IM Every 30 days 07/26/2024 Active Active Problems Problem Noted Date Diagnosed Date Erosive esophagitis 06/20/2024 Hematemesis with nausea 06/08/2024 Upper GI bleed 06/07/2024 Chronic alcoholic gastritis 04/12/2024 Assessment & Plan (07/23/2024 11:09 AM CHILD NEUROLOGIST): Currently on pantoprazole. EGD scheduled in the summer. Assessment & Plan (07/17/2024 4:44 PM CHILD NEUROLOGIST): Stable, well controlled; no current stomach pain, stools returned to normal; has some concerns regarding throat; patient to follow-up with GI for repeat EGD Continue pantoprazole 40 mg b.i.d. x3 months Assessment & Plan (04/12/2024 3:10 PM CDT): Stable, improving; patient had significant symptoms prior; was seen in ED Start on pantoprazole Will continue pantoprazole for 2 months; patient referred to GI for possible EGD Hepatic steatosis 04/12/2024 Assessment & Plan (04/12/2024 3:11 PM CDT): Stable, noted on imaging; discussed with patient at length long-term risk associated with alcohol use and liver disease, that this is early signs still reversible Encouraged complete alcohol cessation Homicidal ideations 01/18/2024 Mild bipolar disorder (CMS/HCC) 01/18/2024 Assessment & Plan (02/28/2024 4:04 PM CDT): Stable, well controlled; no current depressive or anxious symptoms; has some agitation associated with neighbors and stressors and current housing Patient [facility] Continue quetiapine 25 mg nightly Assessment & Plan (02/03/2024 1:28 PM CDT): Stable, patient has pressured speech; however otherwise appears fairly well controlled Continue Seroquel 25 mg nightly, hydroxyzine 50 mg p.r.n.; continue to follow with counseling and psychiatry services through [facility] Major depressive disorder, single episode, unspe cified 01/18/2024 Assessment & Plan (04/12/2024 3:12 PM CDT): Stable, generally well controlled, in general good mood Follows with psychiatry with [facility] Continue quetiapine 25 mg daily, Librium 25 mg, hydroxyzine 50 mg p.r.n. 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 Anxiety disorder, unspecified 01/18/2024 Chronic post-traumatic stress disorder Assessment & Plan (07/23/2024 11:11 AM CHILD NEUROLOGIST): Has supportive friend and father. Encouraged working with counselor. Alcohol dependence with unco mplicated intoxication (CMS/HCC) 01/11/2024 Assessment & Plan (07/23/2024 11:11 AM CHILD NEUROLOGIST): Will proceed to [facility] ED for Vivitrol injection today. Will return for her follow-up appointment in 10 days with PCP. Encouragement provided. Safety reviewed. Assessment & Plan (07/17/2024 4:43 PM CHILD NEUROLOGIST): Stable, improving; no alcohol since last visit; due for injection on July 15, but would like to delay in order to allow for some alcohol use Discourage delay; would continue naltrexone monthly; add acamprosate 2 tablets t.i.d. Assessment & Plan (06/07/2024 4:51 PM CHILD NEUROLOGIST): Not well controlled, can had recent relapse, drinking over the past 4 days; develops significant abdominal pain, emesis including bloating emesis Encouraged continued work towards cessation; at this time would continue naltrexone 50 mg, Librium 25 mg; will follow-up for Vivitrol injection when Assessment & Plan (04/12/2024 3:11 PM CDT): Stable, improving; had relapse; had trunk several pt, received naltrexone injection; and then patient reports strength to more shots and woke up significantly sick Patient doing better at this time; engaged with asset recovery specialist; discussion with Peer recovery unit operator today Encouraged continued work towards complete cessation Assessment & Plan (02/28/2024 4:04 PM CDT): Stable, well controlled; remains alcohol free; remains active which helps her avoid alcohol; spends time with dog and engage with other activities Continue naltrexone every 30 days Assessment & Plan (02/03/2024 1:28 PM CDT): Stable, well controlled; had been drinking daily; hospitalized for withdrawal; now discharge with Vivitrol injection Patient reports extended duration of alcohol use and abuse Will continue Vivitrol every 30 days; encourage follow-up and evaluation by warm handoff program Alcoholic ketoacidosis 02/23/2023 Alcoholic intoxication without complication ([facility]) 02/23/2023 Acute pancreatitis 10/29/2022 Immunizations Name Administration Dates Next Due Adenovirus 09/30/2017 DTP 1995,1995,1995 DTaP 03/15/2000 HPV, Quadrivalent 04/21/2010,09/26/2009 Hep A, Pediatric 04/21/2010 Hep B Vaccine 09/08/2018,11/02/2017,09/30/2017 Hep B, Adolescent or Pediatric 1995,1995,1995 HiB 03/15/2000, 6,1995,08/11 IPV 09/30/2017,03/15/2000 Influenza LAIV (Nasal) 04/21/2010 Influenza, Quadrivalent, Consuelo l Culture-based MDCK, Antibiotic Free, Intramuscular 09/30/2017 Influenza, Quadrivalent, Spl it, Intramuscular 03/16/2019,09/08/2018 Influenza, Quadrivalent, Spl it, Preservative Free, Intramuscular 08/06/2020,04/21/2019,03/16/2019 Influenza, Trivalent, Preser vative Free, Intramuscular 04/12/2024 Influenza, Unspecified 01/18/2024(Deferr ed: Patient Refused),04/03/2023(Deferred: Patient Refused),04/03/2023(Deferred: Patient Refused),04/03/2023(Deferred: Patient Refused) MMR 03/20/2001,03/15/2000 Meningococcal MCV4P (Menactra) 09/30/2017 Meningococcal Polysaccharide (Menomune) 09/26/2009 OPV 1995,1995,1995 Tdap 09/30/2017,09/26/2009 Varicella 11/02/2017, 8,04/21/2010,03/20 Social History Tobacco Use Types Packs/Day Years Used Date Smoking Tobacco: Every Day Vaping Tobacco Cessation:Ready to Q uit: Yes; Counseling Given: Yes Alcohol Use Standard Drinks/Week Comments Yes 0 (1 standard drink = 0.6 oz pur e alcohol) Pint of alcohol a day popexpert Answer Date Recorded In the past 12 months has [employer], [employer], or water [employer] threatened to shut off services in your [...] week 07/25/2024 How often do you attend [facility] or anglican services? Never 07/25/2024 Do you belong to any clubs o r organizations such as shinto groups, unions, fraternal or athletic groups, or [...] any time in the past 12 m [facility], were you homeless or living in a fdc (including now)? No 07/25/2024 Personal Safety Answer [...] on file Legal Sex Female 6:50 PM CHILD NEUROLOGIST Gender Identity Not on file Sexual Orientation Not on file Last Filed Vital Signs Vital Sign Reading Time Taken Comments Blood Pressure 106/78 07/23/2024 2:00 PM CHILD NEUROLOGIST Pulse 90 07/23/2024 2:00 PM CHILD NEUROLOGIST Temperature 36.8 ??C (98.2 ??F) 07/23/2024 11:[address] Respiratory Rate 18 07/23/2024 2:00 PM CHILD NEUROLOGIST Oxygen Saturation 100% 07/23/2024 2:00 PM CHILD NEUROLOGIST Inhaled Oxygen Concentration - - Weight 68 kg (150 lb) 07/23/2024 11:43 AM CHILD NEUROLOGIST Height 172.7 cm (5' 8 ) 07/23/2024 11:43 AM CHILD NEUROLOGIST Body Mass Index 22.81 07/23/2024 11:43 AM CHILD NEUROLOGIST Plan of Treatment Upcoming Encounters Date Type Department Care Team (Latest Contact Info) Description 12/11/2024 12:00 PM CDT Hospital Encounter [address] [address] Ashish Morrow MD [address] [place] [address] DR MCCONNELL [address] [place] [address] 12/11/2024 12:00 PM CDT - 12/11/2024 12:35 PM CDT Surgery [address] [address] Ashish Morrow MD [address] [place] [address] DR MCCONNELL [address] [place] [id number] ESOPHAGOGASTRODUODENOSCOPY Scheduled Procedures Name Priority Associated Diagnoses Date/Ti me ESOPHAGOGASTRODUODENOSCOPY Erosive esophagitis 12/11/2024 12:00 PM CDT Procedures Procedure Name Priority Date/Time Associated Diagnosis Comments ESOPHAGOGASTRODUODENOSCOPY BIOPSY 06/09/2024 9:59 AM CHILD NEUROLOGIST Upper GI bleed SURGICAL PATHOLOGY STAT 06/09/2024 9:15 AM CHILD NEUROLOGIST Upper GI bleed EGFR Routine 06/09/2024 8:08 AM CHILD NEUROLOGIST MAGNESIUM Routine 06/09/2024 8:08 AM CHILD NEUROLOGIST COMPREHENSIVE METABOLIC PANEL Routine 8:08 AM CHILD NEUROLOGIST EGD 06/09/2024 6:45 AM CHILD NEUROLOGIST DIFFERENTIAL AUTO Routine 06/09/2024 6:21 AM CHILD NEUROLOGIST ZINC Routine 06/09/2024 6:21 AM CHILD NEUROLOGIST CBC WITH AUTO DIFFERENTIAL Routine 06/09 6:21 AM CHILD NEUROLOGIST HEMOGLOBIN AND HEMATOCRIT Timed 2023 8:48 AM CHILD NEUROLOGIST DIFFERENTIAL AUTO STAT 06/08/2024 2:34 AM CHILD NEUROLOGIST CBC WITH AUTO DIFFERENTIAL STAT 06/08 2:34 AM CHILD NEUROLOGIST OSMOLALITY, BLOOD Routine 06/08/2024 1:49 AM CHILD NEUROLOGIST EGFR STAT 06/08/2024 1:49 AM CHILD NEUROLOGIST BASIC METABOLIC PANEL STAT 06/08/2024 1:[address] CHEST PE ABDOMEN PELVIS W CONTRAST ED 06/08/2024 1:44 AM CHILD NEUROLOGIST POCT HCG, URINE Routine 06/08/2024 1:11 AM CHILD NEUROLOGIST URINALYSIS, MICROSCOPIC ONLY STAT 12/2023 12:39 AM CHILD NEUROLOGIST URINALYSIS AND REFLEX TO MICROSCOPIC AND CULTURE STAT 06/08/2024 12:39 AM CHILD NEUROLOGIST EGFR STAT 06/07/2024 11:00 PM CHILD NEUROLOGIST DIFFERENTIAL AUTO STAT 06/07/2024 11:00 PM CHILD NEUROLOGIST LIPASE STAT 06/07/2024 11:00 PM CHILD NEUROLOGIST PROTIME-INR STAT 06/07/2024 11:00 PM CHILD NEUROLOGIST SEPSIS LACTATE WITH REFLEX STAT 06/07 11:00 PM CHILD NEUROLOGIST CBC WITH AUTO DIFFERENTIAL STAT 06/07 11:00 PM CHILD NEUROLOGIST COMPREHENSIVE METABOLIC PANEL STAT 11:00 PM CHILD NEUROLOGIST ETHANOL STAT 06/07/2024 11:00 PM CHILD NEUROLOGIST ECG 12-LEAD STAT 06/07/2024 5:06 PM CHILD NEUROLOGIST SCAN - RADIOLOGY/IMAGING 06/06/2024 from Last 3 Months Results * Surgical pathology (06/09/2024 9:15 AM CHILD NEUROLOGIST) Tissue (EG Junction, Biopsy) 06/09/2024 10:16 AM CHILD NEUROLOGIST Narrative PATHOLOGY [facility] - 06/13/2024 6:28 PM CHILD NEUROLOGIST EPIC results best viewed via link to PDF [facility] Department of Pathology [address] [place] [address] Note to Patients: This report may contain a detailed description of human tissue sent by a health care provider to the laboratory for pathologic evaluation. The content of this report is essential for diagnosis and may provide important critical findings. This information may be unfamiliar to patients to review without a medical professional present. It is advised that the patient review this report in the presence of a health care provider who can answer questions and explain the details. Final Report Patient Name: ??ROMARIO JAMES Diaz Address: ??[address] [place] [address] [address], ??[place], [place] [address] Gender: ??F : ??1995 (Age: 28) Service: ??Medical Location: ??[facility] Hospital #: ??[id number] Patient Type: ??[facility] IP Accession # ?[id number] Taken: ??06/09/2024 Received: ??06/11/2024 Accessioned: ??06/11/2024 Reported: ??06/13/2024 Physician(s):Dr. Ashish Morrow M.D. Diagnosis: GE junction, biopsy: ? - Fragments of ulcerated squamous mucosa. ? - Special stain negative for fungi. Reji Giron M.D. Report Electronically Reviewed and Signed Out By ??Reji Webb M.D. ??06/13/2024 18:28:17 Specimen(s) Received: A: GE junction biopsies Microscopic Description: Microscopic examination of the GE junction, examined at multiple levels show ulcerated fragments of squamous mucosa. The squamous fragments are associated with marked acute fibroinflammatory exudate some associated reactive changes. ??A special stain for fungi (GMS) is performed (with appropriate controls) and shows no definitive fungal elements. ??There is no evidence of dysplasia or malignancy. ??If this is of concern, recommend follow up with repeat sampling of the clearing of inflammation. Clinical History: Upper GI bleed. ??EGD. ?? Gross Description: The specimen is submitted in a single formalin filled container labeled JAMES SALEH and GE junction . ??It is for flecks of white tissue between <1 1 mm. ??All in one cassette. Palomo Olivo R.N., P.A./Reji Giron M.D. REPORT IMAGES AND SCANNED DOCUMENTS, IF INCLUDED, ONLY VIEWABLE IN PDF VERSION OF REPORT The performance characteristics of some immunohistochemical stains, fluorescence in-situ hybridization tests and immunophenotyping by flow cytometry cited in this report (if any) were determined by the Surgical Pathology Department at [facility] as part of an ongoing billing and quality technician program and in compliance with federally mandated regulations drawn from the Clinical Laboratory Improvement Act of 1988 (CLIA '88). ??Some of these tests rely on the use of analyte specific reagents and are subject to specific labeling requirements by the US Food and Drug Administration. ??Such diagnostic tests may only be performed in a facility that is certified by the Department of Health and Human Services as a high complexity laboratory under CLIA '88. The FDA has determined that such clearance or approval is not necessary. ??This test is used for clinical purposes. ??It should not be regarded as investigational or for research. ??Nevertheless, federal rules concerning the medical use of analyte specific reagents require that the following disclaimer be attached to the report: This test was developed and its performance characteristics determined by the Surgical Pathology Department [facility]. ??It has not been cleared or approved by the U. S. Food and Drug Administration. Note for decalcified specimens: This assay has not been validated on decalcified tissues. Results should be interpreted with caution given the possibility of false negativity on decalcified specimens us Ashish Morrow MD LAB PATHOLOGY ORDERABLES F inal Result PATHOLOGY [facility] [address] [place], [place] [id number] * eGFR (06/09/2024 8:08 AM CHILD NEUROLOGIST) eGFR >90 >=60 mL/min/1. 73 m2 Comment: Interpretive Data Reference Interval Normal ?>/= 90 mL/min/1.73m2 Mildly decreased* ? 60 - 89 mL/min/1.73m2 Mildly to moderately decreased ?45 - 59 mL/min/1.73m2 Moderately to severely decreased ??30 - 44 mL/min/1.73m2 Severely decreased ?15 - 29 mL/min/1.73m2 Kidney Failure ?< 15 ??mL/min/1.73m2 *Relative to young adult level Estimated glomerular filtration rate is determined by the 2020 CKD-EPI equation recommended by the National Kidney Foundation (A Unifying Approach to GFR Estimation: Recommendations of the NKF-ASK Task Force on Reassessing the Inclusion of Race in Diagnosing Kidney Disease, JASN 202). The CKD-EPI equation should not be used for patients with unstable renal function and has not been validated in children and those over 70. Current interpretive data was last reviewed 2021. Blood 06/09/2024 8:08 AM CHILD NEUROLOGIST 06/09/2024 8:25 AM CHILD NEUROLOGIST Heike Childs MD LAB BLOOD ORDERABLES Final Res ult Performing Organization Address City/[facility]/ZIP Co de Phone Number [place] ([place]) [address] [facility] [place] [address] * Magnesium (06/09/2024 8:08 AM CHILD NEUROLOGIST) Magnesium 1.8 1.4 - 2.5 mg/dL Blood 06/09/2024 8:08 AM CHILD NEUROLOGIST 06/09/2024 8:25 AM CHILD NEUROLOGIST Heike Childs MD LAB BLOOD ORDERABLES Final Res ult Performing Organization Address City/[facility] Co de Phone Number [place] ([place]) [address] [facility] [place] [address] * (ABNORMAL) Comprehensive metabolic panel (06/09/2024 8:08 AM CHILD NEUROLOGIST) Sodium 137 135 - 145 mmol/L Potassium, pl 3.5 3.3 - 4.9 mmol/L [facility] ([place]) Chloride 106 97 - 110 mmol/L [facility] ([place]) CO2 19(L) 22 - 32 mmol/L [facility] ([place]) Anion gap 12 2 - 15 mmol/L [facility] ([place]) BUN 4(L) 6 - 25 mg/dL [facility] ([place]) Creatinine 0.64 0.60 - 1.10 mg/dL [facility] ([place]) Glucose 89 70 - 199 mg/dL [facility] ([place]) Comment: Interpretive Data Fasting glucose >/= 126 mg/dl is diagnostic for diabetes. ?? Fasting is defined as no caloric intake for at least 8 hours. Fasting glucose between 100 mg/dl to 125 mg/dl is diagnostic of prediabetes. In a patient with classic symptoms of hyperglycemia or hyperglycemic crisis, a random glucose >/= 200 mg/dl is diagnostic for diabetes. In the absence of unequivocal hyperglycemia, results should be confirmed by repeat testing. The classification and Diagnosis of Diabetes Diabetes Care 202; 46: S19-S40. Current interpretive data was last revised 2022. Calcium 9.3 8.5 - 10.3 mg/dL [facility] ([place]) Bilirubin, total 0.7 0.1 - 1.2 mg/dL [facility] ([place]) Protein, pl 7.0 6.5 - 8.5 g/dL [facility] ([place]) Albumin 3.9 3.5 - 5.0 g/dL [facility] ([place]) Alk phos 59 40 - 130 Units/L [facility] ([place]) ALT 22 7 - 45 Units/L [facility] ([place]) AST 37 10 - 45 Units/L [facility] ([place]) Comment: Hemolysis present. ??Results may be affected. Slightly Hemolyzed Specimen Blood 06/09/2024 8:08 AM CHILD NEUROLOGIST 06/09/2024 8:25 AM CHILD NEUROLOGIST us Heike Childs MD LAB BLOOD ORDERABLES Final Res ult [place] [facility] ([place]) 1 [facility] [place] [address] * EGD (06/09/2024 6:45 AM CHILD NEUROLOGIST) Anatomical Region Laterality Modality Other Narrative Procedure Note Ashish Morrow MD - 06/09/2024 6:45 AM CST [facility] Patient Name: James Saleh Procedure Date: 06/09/2024 6:45 AM Date of : 1995 Admit Type: Inpatient Age: 28 Gender: Female Attending MD: Ashish Morrow M.D. Room: [facility] ENDOSCOPY ROOM 1 Note Status: Finalized Patient Profile: This is a 28 year old female. Patient admitted with hematemesis and symptoms of withdrawal fromalcohol. EGD for evaluation Procedure: Upper GI endoscopy Indications: Hematemesis Referring MD: Morgan Turner M.D. Providers: Ashish Morrow M.D. Impression: - Severe erosive esophagitis with no bleeding. Rule out Pelaez's esophagus. Biopsied. Recommendation: - Await pathology results. - Use Protonix (pantoprazole) 40 mg PO BID for 3 months. - Repeat upper endoscopy in 6 months to evaluatethe response to therapy. - Follow an antireflux regimen. - Advance diet. No further GI workup as needed. Medicines: Monitored Anesthesia Care Complications: No immediate complications. Estimated Blood Loss: Estimated blood loss: none. Procedure: Pre-Anesthesia Assessment: - Prior to the procedure, a History and Physicalwas performed, and patient medications and allergieswere reviewed. The patient's tolerance of previous anesthesia was also reviewed. The risks andbenefits of the procedure and the sedation options and risks were discussed with the patient. All questions were answered, and informed consent was obtained. Prior Anticoagulants: The patient has taken noanticoagulant or antiplatelet agents. ASA Grade Assessment: Per anesthesia note and evaluation. After reviewing the risks and benefits, the patient was deemed in satisfactory condition to undergo the procedure. The benefits, risks, and alternatives to theprocedure and sedation were discussed and informed consentwas obtained. The scope was passed under direct vision. The Endoscope [id number] was introduced through the mouth, and advanced to the second partof duodenum. The upper GI endoscopy was accomplished without difficulty. The patient tolerated the procedure well. Findings: The examined duodenum was normal. The entire examined stomach was normal. Retroflexion stomach in the gastric fundus and cardia were normal. LA Grade D (one or more mucosal breaks involving at least 75% of esophageal circumference) esophagitis with no bleeding was found 40cm from the incisors. Biopsies were taken with a cold forceps forhistology. Electronically signed by Ashish Morrow M.D. Ashish Morrow M.D. 06/09/2024 10:31:50 AM Number of Addenda: 0 Note Initiated On: 06/09/2024 6:45 AM Procedure Code(s): --- Professional --- 80441, Esophagogastroduodenoscopy, flexible, transoral; with biopsy, single or multiple Diagnosis Code(s): --- Professional --- K21.00, Gastro-esophageal reflux disease with esophagitis, without bleeding K92.0, Hematemesis CPT copyright 2020 [employer]. All rights reserved. The codes documented in this report are preliminary and upon finisher hand reviewmay be revised to meet current compliance requirements. Recognized by the [employer] for promoting quality in endoscopy us Ashish Morrow MD ENDOSCOPY PROCEDURES Final Result * Differential, auto (06/09/2024 6:21 AM CHILD NEUROLOGIST) Neutrophil abs 1.7 1.5 - 6.5 K/cumm Imm gran abs 0.0 0.0 - 0.1 K/cumm [facility] ([place]) Lymphocyte abs 1.9 0.8 - 3.3 K/cumm [facility] ([place]) Monocyte abs 0.3 0.2 - 0.8 K/cumm [facility] ([place]) Eosinophil abs 0.1 0.0 - 0.5 K/cumm [facility] ([place]) Basophil abs 0.0 0.0 - 0.1 K/cumm [facility] ([place]) Neutrophil pct 42.2 % [facility] ([place]) Comment: Interpretive Data Percent cell count reference ranges are not reported, since discordance with absolute values may lead to misinterpretation of CBC data. Current Interpretive Data was last revised on 2017. Imm gran pct 0.0 % [facility] ([place]) Comment: Interpretive Data Percent cell count reference ranges are not reported, since discordance with absolute values may lead to misinterpretation of CBC data. Current Interpretive Data was last revised on 2017. Lymphocyte pct 47.4 % [facility] ([place]) Comment: Interpretive Data Percent cell count reference ranges are not reported, since discordance with absolute values may lead to misinterpretation of CBC data. Current Interpretive Data was last revised on 2017. Monocyte pct 6.2 % [facility] ([place]) Comment: Interpretive Data Percent cell count reference ranges are not reported, since discordance with absolute values may lead to misinterpretation of CBC data. Current Interpretive Data was last revised on 2017. Eosinophil pct 3.5 % [facility] ([place]) Comment: Interpretive Data Percent cell count reference ranges are not reported, since discordance with absolute values may lead to misinterpretation of CBC data. Current Interpretive Data was last revised on 2017. Basophil pct 0.7 % [facility] ([place]) Comment: Interpretive Data Percent cell count reference ranges are not reported, since discordance with absolute values may lead to misinterpretation of CBC data. Current Interpretive Data was last revised on 2017. Blood 06/09/2024 6:21 AM CHILD NEUROLOGIST 06/09/2024 6:38 AM CHILD NEUROLOGIST us Ashish Morrow MD LAB BLOOD ORDERABLES Final Result [place] [facility] ([place]) 1 [facility] Department [place] [address] * (ABNORMAL) CBC with auto differential (06/09/2024 6:21 AM CHILD NEUROLOGIST) WBC 4.0 3.8 - 9.9 K/cumm Hgb 9.7(L) 11.9 - 15.5 g/dL [facility] ([place]) Hct 29.6(L) 35.6 - 45.5 % [facility] ([place]) Plt 167 150 - 400 K/cumm [facility] ([place]) MPV 10.6 9.1 - 12.3 fL [facility] ([place]) RBC 4.08 3.90 - 5.20 M/cumm [facility] ([place]) MCV 72.5(L) 81.3 - 96.4 fL [facility] ([place]) MCH 23.8(L) 27.1 - 33.3 pg [facility] ([place]) MCHC 32.8 32.3 - 35.7 g/dL [facility] ([place]) RDW CV 16.1(H) 11.1 - 14.9 % [facility] ([place]) RDW SD 42.1 35.7 - 48.1 fL [facility] ([place]) NRBC abs 0.00 0.00 - 0.01 K/cumm [facility] ([place]) Blood 06/09/2024 6:21 AM CHILD NEUROLOGIST 06/09/2024 6:38 AM CHILD NEUROLOGIST us Ashish Morrow MD LAB BLOOD ORDERABLES Final Result [place] [facility] ([place]) 1 [facility] Department [place] [address] * (ABNORMAL) Zinc (06/09/2024 6:21 AM CHILD NEUROLOGIST) Zinc 50(L) 60 - 106 mcg/dL [facility] ref [facility] Comment: ADDITIONAL INFORMATION This test was developed and its performance characteristics determined by [facility] in a manner consistent with CLIA requirements. This test has not been cleared or approved by the U.S. Food and Drug Administration. Test Performed by: [facility] Laboratories - [facility] [address] [place] [address] [employer] Instructor: Jak Torres Ph.D.; IA# [id number] Blood 06/09/2024 6:21 AM CHILD NEUROLOGIST 06/09/2024 6:38 AM CHILD NEUROLOGIST us Ashish Morrow MD LAB BLOOD ORDERABLES Final Result Performing Organization Address City/[facility]/ZIP Co de Phone Number [place] [facility] ([place]) 1 [facility] [place] [address] [facility] ref Lab * Hemoglobin and hematocrit (06/08/2024 8:48 AM CHILD NEUROLOGIST) Pathologist [facility] Hgb 11.9 11.9 - 15.5 g/dL Hct 37.7 35.6 - 45.5 % [facility] ([place]) Blood 06/08/2024 8:48 AM CHILD NEUROLOGIST 06/08/2024 8:51 AM CHILD NEUROLOGIST us Heike Childs MD LAB BLOOD ORDERABLES Final Res ult Performing Organization Address [facility]/ZIP Co de Phone Number [place] [facility] ([place]) 1 [facility] Department [place] [address] * Differential, auto (06/08/2024 2:34 AM CHILD NEUROLOGIST) Pathologist [facility] Neutrophil abs 6.5 1.5 - 6.5 K/cumm Imm gran abs 0.0 0.0 - 0.1 K/cumm [facility] ([place]) Lymphocyte abs 0.8 0.8 - 3.3 K/cumm [facility] ([place]) Monocyte abs 0.6 0.2 - 0.8 K/cumm [facility] ([place]) Eosinophil abs 0.0 0.0 - 0.5 K/cumm [facility] ([place]) Basophil abs 0.0 0.0 - 0.1 K/cumm [facility] ([place]) Neutrophil pct 81.6 % [facility] ([place]) Comment: Interpretive Data Percent cell count reference ranges are not reported, since discordance with absolute values may lead to misinterpretation of CBC data. Current Interpretive Data was last revised on 2017. Imm gran pct 0.3 % [facility] ([place]) Comment: Interpretive Data Percent cell count reference ranges are not reported, since discordance with absolute values may lead to misinterpretation of CBC data. Current Interpretive Data was last revised on 2017. Lymphocyte pct 10.1 % [facility] ([place]) Comment: Interpretive Data Percent cell count reference ranges are not reported, since discordance with absolute values may lead to misinterpretation of CBC data. Current Interpretive Data was last revised on 2017. Monocyte pct 7.5 % [facility] ([place]) Comment: Interpretive Data Percent cell count reference ranges are not reported, since discordance with absolute values may lead to misinterpretation of CBC data. Current Interpretive Data was last revised on 2017. Eosinophil pct 0.0 % [facility] ([place]) Comment: Interpretive Data Percent cell count reference ranges are not reported, since discordance with absolute values may lead to misinterpretation of CBC data. Current Interpretive Data was last revised on 2017. Basophil pct 0.5 % [facility] ([place]) Comment: Interpretive Data Percent cell count reference ranges are not reported, since discordance with absolute values may lead to misinterpretation of CBC data. Current Interpretive Data was last revised on 2017. Blood 06/08/2024 2:34 AM CHILD NEUROLOGIST 06/08/2024 3:00 AM CHILD NEUROLOGIST us Roddy Brown MD LAB BLOOD ORDERABLES Final R esult [place] [facility] ([place]) 1 [facility] Department [place] [address] * (ABNORMAL) CBC with auto differential (06/08/2024 2:34 AM CHILD NEUROLOGIST) WBC 7.9 3.8 - 9.9 K/cumm Hgb 11.1(L) 11.9 - 15.5 g/dL [facility] ([place]) Hct 34.4(L) 35.6 - 45.5 % [facility] ([place]) Plt 206 150 - 400 K/cumm [facility] ([place]) MPV 10.5 9.1 - 12.3 fL [facility] ([place]) RBC 4.66 3.90 - 5.20 M/cumm [facility] ([place]) MCV 73.8(L) 81.3 - 96.4 fL [facility] ([place]) MCH 23.8(L) 27.1 - 33.3 pg [facility] ([place]) MCHC 32.3 32.3 - 35.7 g/dL [facility] ([place]) RDW CV 16.5(H) 11.1 - 14.9 % [facility] ([place]) RDW SD 43.8 35.7 - 48.1 fL [facility] ([place]) NRBC abs 0.00 0.00 - 0.01 K/cumm [facility] ([place]) Blood 06/08/2024 2:34 AM CHILD NEUROLOGIST 06/08/2024 3:00 AM CHILD NEUROLOGIST us Roddy Brown MD LAB BLOOD ORDERABLES Final R esult [facility] ([place]) 1 [facility] Department of Laboratories [place], [place] [id number] * eGFR (06/08/2024 1:49 AM CHILD NEUROLOGIST) eGFR 68 >=60 mL/min/1. 73 m2 Comment: Interpretive Data Reference Interval Normal ?>/= 90 mL/min/1.73m2 Mildly decreased* ? 60 - 89 mL/min/1.73m2 Mildly to moderately decreased ?45 - 59 mL/min/1.73m2 Moderately to severely decreased ??30 - 44 mL/min/1.73m2 Severely decreased ?15 - 29 mL/min/1.73m2 Kidney Failure ?< 15 ??mL/min/1.73m2 *Relative to young adult level Estimated glomerular filtration rate is determined by the 2020 CKD-EPI equation recommended by the National Kid[employer] (A Unifying Approach to GFR Estimation: Recommendations of the NKF-ASK Task Force on Reassessing the Inclusion of Race in Diagnosing Kidney Disease, JASN 2020). The CKD-EPI equation should not be used for patients with unstable renal function and has not been validated in children and those over 70. Current interpretive data was last reviewed 2021. Blood 06/08/2024 1:49 AM CHILD NEUROLOGIST 06/08/2024 1:51 AM CHILD NEUROLOGIST us Roddy Brown MD LAB BLOOD ORDERABLES Final R esult Performing Organization Address [facility] Co de Phone Number [facility] ([place]) [address] [place] [address] [place] [place] [address] * Osmolality, blood (06/08/2024 1:49 AM CHILD NEUROLOGIST) Pathologist [facility] Osmo 290 275 - 300 mOsm/kg Comment:Testing performed by : [facility], 1 [place]., [address] Blood 06/08/2024 1:49 AM CHILD NEUROLOGIST 06/08/2024 10:09 AM CHILD NEUROLOGIST us Heike Childs MD LAB BLOOD ORDERABLES Final Res ult Performing Organization Address City/[facility]/ZIP Co de Phone Number [facility] ([place]) 1 [facility] [place] [place] [address] * (ABNORMAL) Basic metabolic panel (06/08/2024 1:49 AM CHILD NEUROLOGIST) Sodium 129(L) 135 - 145 mmol/L Potassium, pl 4.7 3.3 - 4.9 mmol/L [facility] ([place]) Chloride 98 97 - 110 mmol/L [facility] ([place]) CO2 10(L) 22 - 32 mmol/L [facility] ([place]) Anion gap 21(H) 2 - 15 mmol/L [place] [facility] ([place]) BUN 13 6 - 25 mg/dL [place] [facility] ([place]) Creatinine 1.13(H) 0.60 - 1.10 mg/dL [place] [facility] ([place]) Glucose 102 70 - 199 mg/dL [facility] ([place]) Comment: Interpretive Data Fasting glucose >/= 126 mg/dl is diagnostic for diabetes. ?? Fasting is defined as no caloric intake for at least 8 hours. Fasting glucose between 100 mg/dl to 125 mg/dl is diagnostic of prediabetes. In a patient with classic symptoms of hyperglycemia or hyperglycemic crisis, a random glucose >/= 200 mg/dl is diagnostic for diabetes. In the absence of unequivocal hyperglycemia, results should be confirmed by repeat testing. The classification and Diagnosis of Diabetes Diabetes Care 202; 46: S19-S40. Current interpretive data was last revised 2022. Calcium 8.8 8.5 - 10.3 mg/dL [facility] ([place]) Blood 06/08/2024 1:49 AM CHILD NEUROLOGIST 06/08/2024 1:51 AM CHILD NEUROLOGIST us Roddy Brown MD LAB BLOOD ORDERABLES Final R esult [place] [facility] ([place]) 1 [facility] [place] [address] * CT Chest PE (CTA) Abdomen Pelvis W Contrast (06/08/2024 1:44 AM CHILD NEUROLOGIST) Anatomical Region Laterality Modality Body N/A Computed Tomogra phy 06/08/2024 2:01 AM CHILD NEUROLOGIST Narrative 06/08/2024 2:07 AM CHILD NEUROLOGIST EXAM DESCRIPTION: CT CHEST PE (CTA) ABDOMEN PELVIS W CONTRAST REASON FOR STUDY: chest / abdolminal pain ?? Chest/abdominal pain, hematemesis x 2 days ??Hx of gastritis ?? TECHNIQUE: CT angiogram of the chest with routine abdomen and pelvis performed with intravenous and ??without ??oral contrast using helical scanning technique with dynamic intravenous contrast injection. Reconstructed coronal and sagittal MPR images reviewed. All images stored on PACS. ??3D MIP images of the chest rendered on scanning unit and reviewed at time of interpretation. ?? Automated exposure control was used as a dose optimization technique for this examination. CONTRAST TYPE/DOSE: 100mL of IOVERSOL 350 MG IODINE/ML INTRAVENOUS SYRINGE ?? injected via ?? intravenous COMPARISON: None FINDINGS: CHEST CHEST VASCULATURE: ??No acute pulmonary thromboembolism. LUNGS: ??No nodules or masses. No pneumonia. PLEURA: ??No effusion. No pneumothorax. MEDIASTINUM/ARY: ??No identified masses or abnormal nodes. HEART: ??Heart size is normal with no pericardial effusion. AXILLA: ??No adenopathy. CHEST WALL: ??No masses. ??No subcutaneous air. HARDWARE/LINES/TUBES: ??None. MUSCULOSKELETAL CHEST: ??No significant abnormality. ABDOMEN/PELVIS LIVER: ??Normal size. ??No identified cystic or solid masses. GALLBLADDER: ??Unremarkable BILE DUCTS: ??No intrahepatic or extrahepatic ductal dilatation. SPLEEN: ??Normal size. ??No focal lesions. PANCREAS: ??No identified cystic or solid masses. No significant calcifications. No adjacent inflammation or peripancreatic fluid collections. Pancreatic duct not dilated. ?? ADRENALS: ??Normal. KIDNEYS/URINARY TRACT: ??No identified significant cystic or solid masses. No visualized stones. No hydronephrosis or hydroureter. Symmetric enhancement. ?? Urinary bladder is unremarkable. GI: ??No dilated bowel loops. No obvious wall thickening. ??Normal appendix. ??No significant diverticular disease. PERITONEUM: ??No ascites or free air. RETROPERITONEUM: ??No mass or adenopathy. REPRODUCTIVE: ??14 mm left ovarian cyst is of doubtful significance. VASCULATURE ABDOMEN: ??No abdominal aortic aneurysm. MUSCULOSKELETAL ABDOMEN PELVIS: ??No acute finding. OTHER: ??No significant abnormality. IMPRESSION: No pulmonary embolism or other acute cardiopulmonary findings. No acute findings in the abdomen or pelvis. THIS IS AN ELECTRONICALLY VERIFIED FINAL REPORT 06/08/2024 2:07 AM - Electronically signed by ??Tristian Becerra M.D. KH: JOSE L D: ??06/08/2024 2:07 AM T: ??06/08/2024 2:07 AM Report ID: [id number] Reading Location: ??[id number] Procedure Note Tristian Becerra MD - 06/08/2024 EXAM DESCRIPTION: CT CHEST PE (CTA) ABDOMEN PELVIS W CONTRAST REASON FOR STUDY: chest / abdolminal pain Chest/abdominal pain, hematemesis x 2 days Hx of gastritis TECHNIQUE: CT angiogram of the chest with routine abdomen and pelvisperformed with intravenous and without oral contrast using helical scanningtechnique with dynamic intravenous contrast injection. Reconstructed coronal and sagittal MPR images reviewed. All images stored on PACS. 3D MIP images ofthe chest rendered on scanning unit and reviewed at time of interpretation. Automated exposure control was used as a dose optimization technique forthis examination. CONTRAST TYPE/DOSE: 100mL of IOVERSOL 350 MG IODINE/ML INTRAVENOUS SYRINGE injected via intravenous COMPARISON: None FINDINGS: CHEST CHEST VASCULATURE: No acute pulmonary thromboembolism. LUNGS: No nodules or masses. No pneumonia. PLEURA: No effusion. No pneumothorax. MEDIASTINUM/ARY: No identified masses or abnormal nodes. HEART: Heart size is normal with no pericardial effusion. AXILLA: No adenopathy. CHEST WALL: No masses. No subcutaneous air. HARDWARE/LINES/TUBES: None. MUSCULOSKELETAL CHEST: No significant abnormality. ABDOMEN/PELVIS LIVER: Normal size. No identified cystic or solid masses. GALLBLADDER: Unremarkable BILE DUCTS: No intrahepatic or extrahepatic ductal dilatation. SPLEEN: Normal size. No focal lesions. PANCREAS: No identified cystic or solid masses. No significant calcifications. No adjacent inflammation or peripancreatic fluidcollections. Pancreatic duct not dilated. ADRENALS: Normal. KIDNEYS/URINARY TRACT: No identified significant cystic or solid masses.No visualized stones. No hydronephrosis or hydroureter. Symmetricenhancement. Urinary bladder is unremarkable. GI: No dilated bowel loops. No obvious wall thickening. Normal appendix.No significant diverticular disease. PERITONEUM: No ascites or free air. RETROPERITONEUM: No mass or adenopathy. REPRODUCTIVE: 14 mm left ovarian cyst is of doubtful significance. VASCULATURE ABDOMEN: No abdominal aortic aneurysm. MUSCULOSKELETAL ABDOMEN PELVIS: No acute finding. OTHER: No significant abnormality. IMPRESSION: No pulmonary embolism or other acute cardiopulmonary findings. No acute findings in the abdomen or pelvis. THIS IS AN ELECTRONICALLY VERIFIED FINAL REPORT 06/08/2024 2:07 AM - Electronically signed by Tristian Becerra M.D. KH: JOSE L Report ID: [id number] Reading Location: [id number] Jacquelin Joshi MD IMG CT PROCEDURES F inal Result * POCT hCG, urine (06/08/2024 1:11 AM CHILD NEUROLOGIST) HCG, ur, POC Negative Negative Lot Number [id number] QC Backgroud Clear Acceptable QC Control Line Acceptable Urine 06/08/2024 1:11 AM CHILD NEUROLOGIST Jacquelin Joshi MD POINT OF CARE TEST ORDERABLES Final Result * (ABNORMAL) Urinalysis reflex to microscopic and culture Urine (06/08/2024 12:39 AM CHILD NEUROLOGIST) Color, ur Yellow Yellow Clarity, ur Turbid(A) Clear [facility] ([place]) Specific gravity, ur 1.023 1.003 - 1.030 [facility] ([place]) pH, urine 6.0 [facility] ([place]) Comment: Interpretive Data ? Urine pH is affected by diet, medications, systemic acid-base disturbances, and renal tubular function. ??pH may affect urinary stone formation. ??For example, urine pH below 6.0 may help reduce the tendency for calcium phosphate stones and pH greater than 6.0 may reduce the tendency for uric acid stone formation. Source: [place] [employer] Current Interpretive Data was last revised on 2017 Protein, ur ql 3+(A) Negative [facility] ([place]) Glucose, ur ql Negative Negative [facility] ([place]) Ketones, ur 4+(A) Negative [facility] ([place]) Bilirubin, ur 1+(A) Negative [facility] ([place]) Blood, ur 2+(A) Negative [facility] ([place]) Urobilinogen, ur 4.0(A) <2.0 mg/dL [facility] ([place]) Nitrite, ur Negative Negative [facility] ([place]) Leukocyte esterase, ur Negative Negative [facility] ([place]) UA reflex comment Reflex to microscopic UA will be performed. [place] [facility] ([place]) Urine 06/08/2024 12:3 9 AM CHILD NEUROLOGIST 06/08/2024 12:49 AM CHILD NEUROLOGIST us Brian Shields NP LAB MICROBIOLOGY - GENERAL ORDERABLES Final Result Performing Organization Address City/[facility] Co de Phone Number [place] [facility] ([place]) 1 [facility] [place] [address] * (ABNORMAL) Urinalysis, microscopic only (06/08/2024 12:39 AM CHILD NEUROLOGIST) WBC, ur 0-5 0 - 5 /HPF RBC, ur 3-5(A) 0 - 2 /HPF [facility] ([place]) Epithelial cells, squamous, ur 1-5 0 - 5 /HPF [facility] ([place]) Bacteria, ur 1+(A) [facility] ([place]) Mucous, ur Present(A) [facility] ([place]) Hyaline casts, ur >50(A) 0 - 10 /LPF [facility] ([place]) Culture Reflex Comment Reflex conditions for urine culture (WBC >10) not met. [facility] ([place]) Urine 06/08/2024 12:3 9 AM CHILD NEUROLOGIST 06/08/2024 12:49 AM CHILD NEUROLOGIST us Brian Shields NP LAB URINE ORDERABLES Final Result Performing Organization Address [facility] Co de Phone Number [place] [facility] ([place]) [address] [place] [address] * Sepsis Lactate w/ Reflex (06/07/2024 11:00 PM CHILD NEUROLOGIST) Sepsis Lactate 1.7 0.7 - 2.0 mmol/L Blood 06/07/2024 11:0 0 PM CHILD NEUROLOGIST 06/07/2024 11:11 PM CHILD NEUROLOGIST us Jacquelin Joshi MD LAB BLOOD ORDERABLE S Final Result Performing Organization Address City/[facility]/ZIP Co de Phone Number [place] [facility] ([place]) 1 [facility] [place] [address] * eGFR (06/07/2024 11:00 PM CHILD NEUROLOGIST) Pathologist [facility] eGFR 60 >=60 mL/min/1. 73 m2 Comment: Interpretive Data Reference Interval Normal ?>/= 90 mL/min/1.73m2 Mildly decreased* ? 60 - 89 mL/min/1.73m2 Mildly to moderately decreased ?45 - 59 mL/min/1.73m2 Moderately to severely decreased ??30 - 44 mL/min/1.73m2 Severely decreased ?15 - 29 mL/min/1.73m2 Kidney Failure ?< 15 ??mL/min/1.73m2 *Relative to young adult level Estimated glomerular filtration rate is determined by the 2020 CKD-EPI equation recommended by the National Kidney Foundation (A Unifying Approach to GFR Estimation: Recommendations of the NKF-ASK Task Force on Reassessing the Inclusion of Race in Diagnosing Kidney Disease, JASN 2020). The CKD-EPI equation should not be used for patients with unstable renal function and has not been validated in children and those over 70. Current interpretive data was last reviewed 2021. Blood 06/07/2024 11:0 0 PM CHILD NEUROLOGIST 06/07/2024 11:11 PM CHILD NEUROLOGIST us Brian Shields NP LAB BLOOD ORDERABLES Final Result [facility] ([place]) 1 [facility] [place] [address] * (ABNORMAL) Differential, auto (06/07/2024 11:00 PM CHILD NEUROLOGIST) [facility] Neutrophil abs 8.0(H) 1.5 - 6.5 K/cumm Imm gran abs 0.0 0.0 - 0.1 K/cumm [facility] ([place]) Lymphocyte abs 1.2 0.8 - 3.3 K/cumm [facility] ([place]) Monocyte abs 0.6 0.2 - 0.8 K/cumm [facility] ([place]) Eosinophil abs 0.0 0.0 - 0.5 K/cumm [facility] ([place]) Basophil abs 0.0 0.0 - 0.1 K/cumm [facility] ([place]) Neutrophil pct 80.9 % [facility] ([place]) Comment: Interpretive Data Percent cell count reference ranges are not reported, since discordance with absolute values may lead to misinterpretation of CBC data. Current Interpretive Data was last revised on 2017. Imm gran pct 0.3 % [facility] ([place]) Comment: Interpretive Data Percent cell count reference ranges are not reported, since discordance with absolute values may lead to misinterpretation of CBC data. Current Interpretive Data was last revised on 2017. Lymphocyte pct 12.0 % [facility] ([place]) Comment: Interpretive Data Percent cell count reference ranges are not reported, since discordance with absolute values may lead to misinterpretation of CBC data. Current Interpretive Data was last revised on 2017. Monocyte pct 6.4 % [facility] ([place]) Comment: Interpretive Data Percent cell count reference ranges are not reported, since discordance with absolute values may lead to misinterpretation of CBC data. Current Interpretive Data was last revised on 2017. Eosinophil pct 0.0 % [facility] ([place]) Comment: Interpretive Data Percent cell count reference ranges are not reported, since discordance with absolute values may lead to misinterpretation of CBC data. Current Interpretive Data was last revised on 2017. Basophil pct 0.4 % [facility] ([place]) Comment: Interpretive Data Percent cell count reference ranges are not reported, since discordance with absolute values may lead to misinterpretation of CBC data. Current Interpretive Data was last revised on 2017. Blood 06/07/2024 11:0 0 PM CHILD NEUROLOGIST 06/07/2024 11:11 PM CHILD NEUROLOGIST us Brian Shields THERAPEUTIC SUPPORT STAFF LAB BLOOD ORDERABLES Final Result [facility] ([place]) 1 [facility] [employer] [address] * (ABNORMAL) CBC with auto differential (06/07/2024 11:00 PM CHILD NEUROLOGIST) WBC 9.9 3.8 - 9.9 K/cumm Hgb 14.0 11.9 - 15.5 g/dL [facility] ([place]) Hct 44.4 35.6 - 45.5 % [facility] ([place]) Plt 293 150 - 400 K/cumm [facility] ([place]) MPV 10.6 9.1 - 12.3 fL [facility] ([place]) RBC 5.99(H) 3.90 - 5.20 M/cumm [facility] ([place]) MCV 74.1(L) 81.3 - 96.4 fL [facility] ([place]) MCH 23.4(L) 27.1 - 33.3 pg [facility] ([place]) MCHC 31.5(L) 32.3 - 35.7 g/dL [facility] ([place]) RDW CV 17.5(H) 11.1 - 14.9 % [facility] ([place]) RDW SD 43.4 35.7 - 48.1 fL [facility] ([place]) NRBC abs 0.00 0.00 - 0.01 K/cumm [facility] ([place]) Blood 06/07/2024 11:0 0 PM CHILD NEUROLOGIST 06/07/2024 11:11 PM CHILD NEUROLOGIST us Brian Shields NP LAB BLOOD ORDERABLES Final Result [facility] ([place]) 1 [facility] [place] [place] [address] * Protime-INR (06/07/2024 11:00 PM CHILD NEUROLOGIST) PT 10.8 9.7 - 13.0 sec [facility] ([place]) INR 1.00 0.90 - 1.20 [facility] ([place]) Comment: Interpretive data Oral anticoagulant therapeutic ranges: Venous thromboembolism prophylaxis or treatment: 2.0-3.0 CARDIOLOGY Standard range: 2.0-3.0 High-intensity range: 2.5-3.5 Refer to indication-specific guidelines for appropriate target ranges for prosthetic heart valve replacement. Current interpretive data was last revised on 2019. Blood 06/07/2024 11:0 0 PM CHILD NEUROLOGIST 06/07/2024 11:11 PM CHILD NEUROLOGIST Jacquelin Joshi MD LAB BLOOD ORDERABLE S Final Result Performing Organization Address [facility] Co de Phone Number [facility] ([place]) 1 [facility] [place] [address] * Lipase (06/07/2024 11:00 PM CHILD NEUROLOGIST) Lipase 67 10 - 99 Units/L Blood 06/07/2024 11:0 0 PM CHILD NEUROLOGIST 06/07/2024 11:11 PM CHILD NEUROLOGIST Jacquelin Joshi MD LAB BLOOD ORDERABLE S Final Result Performing Organization Address [facility] de Phone Number [facility] ([place]) 1 [place] [address] * Ethanol (06/07/2024 11:00 PM CHILD NEUROLOGIST) Ethanol <10 <=10 mg/dL Comment: Interpretive Data Legal limit of intoxication > or = 80 mg/dL Levels > or = 400 mg/dL are potentially TOXIC. Current interpretive data was last revised on 2018. Blood 06/07/2024 11:0 0 PM CHILD NEUROLOGIST 06/07/2024 11:11 PM CHILD NEUROLOGIST Brian Shields NP LAB BLOOD ORDERABLES Final Result Performing Organization Address City/[facility]/ZIP Co de Phone Number [facility] ([place]) 1 [facility] Department [place] [address] * (ABNORMAL) Comprehensive metabolic panel (06/07/2024 11:00 PM CHILD NEUROLOGIST) Sodium 131(L) 135 - 145 mmol/L Potassium, pl 5.3(H) 3.3 - 4.9 mmol/L [facility] ([place]) Chloride 97 97 - 110 mmol/L [facility] ([place]) CO2 7(L) 22 - 32 mmol/L [facility] ([place]) Anion gap 27(H) 2 - 15 mmol/L [facility] ([place]) BUN 14 6 - 25 mg/dL [facility] ([place]) Creatinine 1.26(H) 0.60 - 1.10 mg/dL [facility] ([place]) Glucose 101 70 - 199 mg/dL [facility] ([place]) Comment: Interpretive Data Fasting glucose >/= 126 mg/dl is diagnostic for diabetes. ?? Fasting is defined as no caloric intake for at least 8 hours. Fasting glucose between 100 mg/dl to 125 mg/dl is diagnostic of prediabetes. In a patient with classic symptoms of hyperglycemia or hyperglycemic crisis, a random glucose >/= 200 mg/dl is diagnostic for diabetes. In the absence of unequivocal hyperglycemia, results should be confirmed by repeat testing. The classification and Diagnosis of Diabetes Diabetes Care 2021; 46: S19-S40. Current interpretive data was last revised 2022. Calcium 9.2 8.5 - 10.3 mg/dL [facility] ([place]) Bilirubin, total 0.8 0.1 - 1.2 mg/dL [facility] ([place]) Protein, pl 9.1(H) 6.5 - 8.5 g/dL [facility] ([place]) Albumin 4.8 3.5 - 5.0 g/dL [facility] ([place]) Alk phos 76 40 - 130 Units/L [facility] ([place]) ALT 26 7 - 45 Units/L [facility] ([place]) AST 46(H) 10 - 45 Units/L [facility] ([place]) Comment: Hemolysis present. ??Results may be affected. Slightly Hemolyzed Specimen Blood 06/07/2024 11:0 0 PM CHILD NEUROLOGIST 06/07/2024 11:11 PM CHILD NEUROLOGIST us Brian Shields NP LAB BLOOD ORDERABLES Final Result [facility] ([place]) 1 [facility] [place] [address] * ECG 12 lead (06/07/2024 5:06 PM CHILD NEUROLOGIST) 06/07/2024 5:06 PM CHILD NEUROLOGIST Narrative [facility] - 06/08/2024 8:39 AM CHILD NEUROLOGIST Vent Rate: 112 bpm RR Interval: 535 msec MS Interval: 120 msec QRS Duration: 72 msec QT Interval: 332 msec QTC Interval: 398 msec P-R-T [place]: 75 - 72 - 61 degrees IMPRESSION: SINUS TACHYCARDIA NONSPECIFIC T-WAVE ABNORMALITY ABNORMAL RHYTHM ECG NO CHANGE FROM PREVIOUS TRACING NOTED Electronically Signed By: Laureano Beard MD Brian Shields NP ECG ORDERABLES Final Resul t Performing Organization Address City/[facility] Co de Phone Number [facility] * SCAN - RADIOLOGY/IMAGING (06/06/2024) Anatomical Region Laterality Modality Other us Morgan Turner MD Final Res ult from Last 3 Months Insurance [facility] Advance Directives For more information, please contact: [phone] * Full Code (Latest Code Status on File) Date Activated Date Inactivated Comments 06/09/2024 9:37 AM 06/09/2024 7:14 PM * Full Code Date Activated Date Inactivated Comments 06/08/2024 3:33 AM 06/09/2024 9:37 AM * Full Code Date Activated Date Inactivated Comments 01/11/2024 7:42 AM 01/13/2024 6:46 PM Care Teams Armor Officer Relationship Specialty Start Date End Date Morgan Turner MD [address] [place] [address] PCP - General Family Medicine 01/18/24 Ashish Morrow MD [address] [place] [address] [place] [address] Consulting Physician Gastroenterology 06/09/24 Loida Aburto, CENTER [facility] [place] [address] Corporate Counselor 07/25/24
--- OUTSIDE RECORDS SUMMARY | 2024-08-04 08:23 | XMS_ITS | Referral Summary ---
Author Organization [facility] [place] Address [address] [place] [address] Care Team Providers Care Career Manager Name Role Phone Unavailable Primary Care Provider Unavailabl e Source Comments [facility],non-owned Affiliates and Associated Physician Practices is amultiple site organization consisting of ambulatory clinics and hospital sitesin [place], [place], [place] and [place]. This disclosure is being madepursuant to the Care Everywhere program and may not contain all information available regarding this patient. Last updated 18.[facility] [place] Allergies No known active allergies Medications Be aware that medications may not be up to date on this document. Always verify current medications with the patient. No known medications Active Problems Problem Noted Date Diagnosed Date Alcoholic ketoacidosis 02/23/2023 Tobacco abuse 02/23/2023 Hypoglycemia 02/23/2023 Alcoholic intoxication without complication 02/02 Acute pancreatitis, unspecif ied complication status, unspecified pancreatitis type 10/29/2022 Social History Tobacco Use Types Packs/Day Years Used Date Smoking Tobacco: Every Day Cigarettes 1 17.8 Started: 10/04/2006 Smokeless Tobacco: Never Tobacco Cessation:Ready to Q uit: Not Asked; Counseling Given: Not Answered Alcohol Use Standard Drinks/Week Comments Yes 5 (1 standard drink = 0.6 oz pur e alcohol) 5 pints daily AUDIT-C Answer Date Recorded Q1: How often do you have a drink containing alcohol? 4 or more times a week 10/29/2022 Q2: How many drinks containi ng alcohol do you have on a typical day when you are drinking? 7 to 9 Q3: How often do you have si x or more drinks on one occasion? Daily or almost daily 10/29/2022 Overall Financial Resource Strain (CARDIA) Answe r Date Recorded How hard is it for you to pa y for the very basics like food, housing, medical care, and heating? Hard 10/29/2022 [facility] Occupat ional [facility] - Occupational Stress Questionnaire Answer Date Recorded Do you feel stress - tense, restless, nervous, or anxious, or unable to sleep at night because your mind is troubled all the time - these days? Rather much 10/29/2022 Hunger Vital Sign Answer Date Recorded Within the past 12 months, y ou worried that your food would run out before you got the money to buy more. Often true Within the past 12 months, t he food you bought just didn't last and you didn't have money to get more. Sometimes true PRAPARE - Transportation Answer Date Re corded In the past 12 months, has l ack of transportation kept you from medical appointments or from getting medications? Yes 10/03 In the past 12 months, has l ack of transportation kept you from meetings, work, or from getting things needed for daily living? Yes 10/29/2022 Housing Stability Vital Sign Answer Derrick e Recorded In the last 12 months, was t here a time when you were not able to pay the mortgage or rent on time? No 10/29/2022 In the last 12 months, how many places have you lived? 2 10/29/2022 In the last 12 months, was t here a time when you did not have a steady place to sleep or slept in a assisted (including now)? No 10/29/2022 Sex and Gender Information Value Date Recorded Sex Assigned at Not on file Gender Identity Not on file Sexual Orientation Not on file Last Filed Vital Signs Vital Sign Reading Time Taken Comments Blood Pressure 138/86 02/23/2023 11:56 AM CDT Pulse 74 02/23/2023 11:56 AM CDT Temperature 36.1 ??C (97 ??F) 02/22/2023 6:13 PM CDT Respiratory Rate 18 02/23/2023 11:56 AM CDT Oxygen Saturation 99% 02/23/2023 11:56 AM CDT Inhaled Oxygen Concentration - - Weight 68 kg (150 lb) 02/22/2023 11:34 AM CDT Height 167.6 cm (5' 6 ) 02/22/2023 11:34 AM CDT Body Mass Index 24.21 02/22/2023 11:34 AM CDT Functional Status Functional Status Response Date of Assess ment Is person deaf or have serious hearing difficult y? No 10/29/2022 Is person blind or have serious difficulty seein g? No 10/29/2022 Does person have serious dif ficulty walking/climbing stairs? No 10/29/2022 Does person have difficulty dressing/bathing? No 10/29/2022 Does person have difficulty doing errands alone? No 10/29/2022 Cognitive Status Response Date of Assessm ent Does person have difficulty concentrating/remembering/making decisions? No 10/29/2022 Plan of Treatment Not on file Advance Directives * Full Code (Latest Code Status on File) Date Activated Date Inactivated Comments 02/23/2023 5:32 AM 02/23/2023 2:00 PM * Full Code Date Activated Date Inactivated Comments 10/29/2022 11:19 AM 11/01/2022 11:54 AM
--- OUTSIDE RECORDS SUMMARY | 2024-08-04 08:23 | XMS_ITS | Patient Health Summary ---
Author Organization [facility] [employer] Address [address] [place] [address] Care Team Providers Care Home Health Clinical Liaison Name Role Phone Unavailable Primary Care Provider Unavailabl e Note from [facility],non-owned Affiliates and Associated Physician Practices is amultiple site organization consisting of ambulatory clinics and hospital sitesin [place], [place], [place] and [place]. This disclosure is being madepursuant to the Care Everywhere program and may not contain all information available regarding this patient. Last updated 18.[facility] [employer] Allergies No known active allergies Medications Be [...] housing, medical care, and heating? Hard 10/29/2022 [facility] Lena of Occupat ional Health - Occupational Stress [...] place to sleep or slept in a fci (including now)? No 10/29/2022 Sex and Gender [...] Mass Index 24.21 02/22/2023 11:34 AM CDT Procedures * PHOSPHORUS BLOOD(Performed 02/23/2023) Performed for Alcoholic ketoacidosis * MAGNESIUM BLOOD(Performed 02/23/2023) Performed for Alcoholic ketoacidosis * COMPREHENSIVE METABOLIC PANEL(Performed 02/23/2023) Performed for Alcoholic ketoacidosis * CBC W/O DIFFERENTIAL(Performed 02/23/2023) Performed for Alcoholic ketoacidosis * GLUCOSE - POINT OF CARE(Performed 02/23/2023) * GLUCOSE - POINT OF CARE(Performed 02/23/2023) * HCG BETA BLOOD QUANTITATIVE(Performed 02/23/2023) Performed for Alcoholic ketoacidosis * LIPASE BLOOD(Performed 02/23/2023) * GLUCOSE - POINT OF CARE(Performed 02/22/2023) * MAGNESIUM BLOOD(Performed 02/22/2023) * LIPASE BLOOD(Performed 02/22/2023) * COMPREHENSIVE METABOLIC PANEL(Performed 02/22/2023) * CBC W AUTO DIFFERENTIAL(Performed 02/22/2023) * CARDIAC EKG ORDER(Performed 11/01/2022) * MAGNESIUM BLOOD(Performed 10/31/2022) * RENAL FUNCTION PANEL(Performed 10/31/2022) * LIPID PROFILE(Performed 10/31/2022) * FERRITIN(Performed 10/31/2022) * IRON + TRANSFERRIN PANEL(Performed 10/31/2022) * RENAL FUNCTION PANEL(Performed 10/30/2022) * MAGNESIUM BLOOD(Performed 10/30/2022) * CBC W/O DIFFERENTIAL(Performed 10/30/2022) * RENAL FUNCTION PANEL(Performed 10/29/2022) * XR ABDOMEN KUB PORTABLE(Performed 10/29/2022) Performed for Acute pancreatitis, unspecified complication status, unspecified pancreatitis type (HCC), Alcoholic ketoacidosis * HYDROXYBUTYRATE BETA(Performed 10/29/2022) * EKG 12-LEAD(Performed 10/29/2022) Performed for Chest pain, unspecified type * URINALYSIS W/MICROSCOPIC NO CULTURE(Performed 10/29/2022) * HCG BETA BLOOD QUANTITATIVE(Performed 10/29/2022) * TROPONIN-I HIGH SENSITIVE(Performed 10/29/2022) * LACTIC ACID BLOOD(Performed 10/29/2022) * LIPASE BLOOD(Performed 10/29/2022) * C-REACTIVE PROTEIN(Performed 10/29/2022) * ERYTHROCYTE SEDIMENTATION RATE(Performed 10/29/2022) * COMPREHENSIVE METABOLIC PANEL(Performed 10/29/2022) * CBC W AUTO DIFFERENTIAL(Performed 10/29/2022) Results * (ABNORMAL) CBC W/O DIFFERENTIAL (02/23/2023 11:11 AM [facility]) Only the most recent of2 resultswithin the time period is included. WBC 6.1 3.5 - 10.5 10? 3 /uL 02/23/2023 11:24 AM [facility] RBC 5.65(H) 3.80 - 5.20 10? 6 /uL 02/23/2023 11:24 AM [facility] Hemoglobin 14.1 12.0 - 15.6 g/dL 02/23/2023 11:24 AM [facility] Hematocrit 43.0 35.0 - 45.0 % 02/23/2023 11:24 AM [facility] MCV 76.1(L) 80.7 - 98.3 fL 02/23/2023 11:24 AM [facility] MCH 25.0(L) 26.7 - 34.0 pg 02/23/2023 11:24 AM [facility] MCHC 32.8 30.8 - 35.9 g/dL 02/23/2023 11:24 AM [facility] RDW-SD 45.1 36.0 - 50.0 fL 02/23/2023 11:24 AM [facility] RDW-CV 16.5(H) 11.2 - 14.8 % 02/23/2023 11:24 AM [facility] Platelet Count 188 150 - 400 10? 3 /uL 02/23/2023 11:24 AM [facility] MPV 10.0 9.4 - 12.9 fL 02/23/2023 11:24 AM [facility] nRBC Absolute 0.00 0 10? 3 /uL 02/23/2023 11:24 AM [facility] nRBC Auto 0.0 0 /100 WBC 02/23/2023 11:24 AM [facility] Blood BLOOD SPECIMEN / Unknown Venipuncture / Unknown 02/23/2023 11:11 AM CDT 02/23/2023 11:19 AM CDT Rio Porter MD LAB - HEMATOLOGY ORD ERABLES [facility] [address] [place] [address], [facility] [phone] * (ABNORMAL) COMPREHENSIVE METABOLIC PANEL (02/23/2023 11:11 AM CDT) Only the most recent of3 resultswithin the time period is included. BUN 5(L) 7 - 26 mg/dL 02/23/2023 11:49 AM [facility] Creatinine 0.79 0.56 - 0.96 mg/dL 02/23/2023 11:49 AM [facility] Sodium 133(L) 136 - 145 mmol/L 02/23/2023 11:49 AM [facility] Potassium 3.5 3.5 - 4.5 mmol/L 02/23/2023 11:49 AM [facility] Chloride 100 98 - 107 mmol/L 02/23/2023 11:49 AM [facility] CO2 22 22 - 29 mmol/L 02/23/2023 11:49 AM [facility] Glucose 152(H) 70 - 115 mg/dL 02/23/2023 11:49 AM [facility] Calcium 9.4 8.4 - 10.2 mg/dL 02/23/2023 11:49 AM [facility] Protein Total 8.5(H) 6.0 - 8.3 g/dL 02/23/2023 11:49 AM [facility] Albumin 4.3 3.4 - 5.0 g/dL 02/23/2023 11:49 AM [facility] Bilirubin Total 1.3(H) 0.2 - 1.2 mg/dL 02/23/2023 11:49 AM [facility] Alkaline Phosphatase 100 40 - 150 U/L 02/23/2023 11:49 AM [facility] ALT 20 5 - 55 U/L 02/23/2023 11:49 AM [facility] AST 31 5 - 34 U/L 02/23/2023 11:49 AM [facility] Anion Gap 15 8 - 18 02/23/2023 11:49 AM [facility] BUN/Creatinine Ratio 6(L) 7 - 23 02/23/2023 11:49 AM [facility] Osmolality Calculated 276 270 - 300 mOsm/kg 02/23/2023 11:49 AM [facility] Albumin/Globulin Ratio 1.0(L) 1.1 - 2.3 02/23/2023 11:49 AM [facility] eGFR by CKD-EPI >90 >=90 mL/min/1.7 3 m2 02/23/2023 11:49 AM [facility] Blood BLOOD SPECIMEN / Unknown Venipuncture / Unknown 02/23/2023 11:11 AM CDT 02/23/2023 11:19 AM CDT Rio Porter MD LAB - CHEMISTRY ORIN BENZ [address] [address], [facility] [phone] * (ABNORMAL) PHOSPHORUS BLOOD (02/23/2023 11:11 AM CDT) Phosphorus 2.1(L) 2.9 - 5.1 mg/dL 02/23/2023 11:[address] [facility] Blood BLOOD SPECIMEN / Unknown Venipuncture / Unknown 02/23/2023 11:11 AM CDT 02/23/2023 11:19 AM CDT Rio Porter MD LAB - CHEMISTRY ORIN BENZ [address] [address], [place] [phone] * MAGNESIUM BLOOD (02/23/2023 11:11 AM CDT) Only the most recent of4 resultswithin the time period is included. [facility] Magnesium 2.0 1.6 - 2.6 mg/dL 02/23/2023 11:[address] [facility] Blood BLOOD SPECIMEN / Unknown Venipuncture / Unknown 02/23/2023 11:11 AM CDT 02/23/2023 11:19 AM CDT Rio Porter MD LAB - CHEMISTRY ORIN BENZ Performing Organization Address City/[facility]/ZIP Co de Phone Number [facility] [address] [place] [address], [place] [phone] * GLUCOSE - POINT OF CARE (02/23/2023 8:21 AM CDT) Only the most recent of3 resultswithin the time period is included. [facility] Glucose WB/POC 104 70 - 115 mg/dL 02/23/2023 8:[address] [facility] Specimen Type Cap Fingerstick 2022 8:[address] [facility] Blood BLOOD SPECIMEN / Unknown 02/23/2023 8:21 AM CDT 02/23/2023 8:30 AM CDT Provider Unknown LAB - POINT OF CARE ORDERABLES Performing Organization Address City/[facility]/ZIP Co de Phone Number [facility] [address] [place] [address], [place] [phone] * HCG BETA BLOOD QUANTITATIVE (02/23/2023 4:00 AM CDT) Only the most recent of2 resultswithin the time period is included. [facility] Beta-hCG Total Quantitative <3 mIU/mL 02/23/2023 9:[address] [facility] Comment: HCG Numeric Result Interpretation: ? Non- Females: ? < 5 mIU/mL ? Post-Menopausal Females: ??< 7 mIU/mL ? This assay is cleared for use in the early detection of only. It is not approved for any other uses such as tumor marker screening, tumor marker monitoring, etc. and should not be used for any other purposes. Blood BLOOD SPECIMEN / Unknown Venipuncture / Unknown 02/23/2023 4:00 AM CDT 02/23/2023 4:11 AM CDT Elsie Escobar MD LAB - CHEMISTRY ORIN BENZ Performing Organization Address [facility]/ZIP Co de Phone Number [address] [address], [facility] [phone] * LIPASE BLOOD (02/23/2023 4:00 AM CDT) Only the most recent of3 resultswithin the time period is included. Pathologist [facility] Lipase 12 8 - 78 U/L 02/23/2023 4:[address] [facility] Blood BLOOD SPECIMEN / Unknown Venipuncture / Unknown 02/23/2023 4:00 AM CDT 02/23/2023 4:[address] [facility] - 02/23/2023 4:35 AM CDT Lipase results from the [employer] Alinity analyzer may not be comparable with other methodologies. Elsie Escobar MD LAB - CHEMISTRY ORIN BENZ Performing Organization Address [facility]/ZIP Co de Phone Number [address] [address], [facility] [phone] * (ABNORMAL) CBC W AUTO DIFFERENTIAL (02/22/2023 3:16 PM CDT) Only the most recent of2 resultswithin the time period is included. WBC 9.9 3.5 - 10.5 10? 3 /uL 02/22/2023 3:[address] [facility] RBC 5.87(H) 3.80 - 5.20 10? 6 /uL 02/22/2023 3:[address] [facility] Hemoglobin 14.6 12.0 - 15.6 g/dL 02/22/2023 3:[address] [facility] Hematocrit 45.0 35.0 - 45.0 % 02/22/2023 3:[address] [facility] MCV 76.7(L) 80.7 - 98.3 fL 02/22/2023 3:24 PM [facility] MCH 24.9(L) 26.7 - 34.0 pg 02/22/2023 3:24 PM [facility] MCHC 32.4 30.8 - 35.9 g/dL 02/22/2023 3:24 PM [facility] RDW-SD 45.2 36.0 - 50.0 fL 02/22/2023 3:24 PM [facility] RDW-CV 17.1(H) 11.2 - 14.8 % 02/22/2023 3:24 PM [facility] Platelet Count 249 150 - 400 10? 3 /uL 02/22/2023 3:24 PM [facility] MPV 10.8 9.4 - 12.9 fL 02/22/2023 3:24 PM [facility] nRBC Absolute 0.00 0 10? 3 /uL 02/22/2023 3:24 PM [facility] nRBC Auto 0.0 0 /100 WBC 02/22/2023 3:24 PM [facility] Neutrophils % 85.9(H) 35.0 - 70.0 % 02/22/2023 3:24 PM [facility] Lymphocytes % 9.1(L) 20.0 - 43.0 % 02/22/2023 3:24 PM [facility] Monocytes % 4.1(L) 5.0 - 13.0 % 02/22/2023 3:24 PM [facility] Eosinophils % 0.0 0.0 - 6.0 % 02/22/2023 3:24 PM [facility] Basophil % 0.6 0.0 - 2.0 % 02/22/2023 3:24 PM [facility] Neutrophils Absolute 8.54(H) 1.60 - 7.00 10? 3 /uL 02/22/2023 3:24 PM [facility] Lymphocyte Absolute 0.90(L) 1.10 - 3.90 10? 3 /uL 02/22/2023 3:24 PM [facility] Monocytes Absolute 0.41 0.26 - 1.07 10? 3 /uL 02/22/2023 3:[address] [facility] Eosinophils Absolute 0.00 0.00 - 0.47 10? 3 /uL 02/22/2023 3:[address] [facility] Basophils Absolute 0.06 0.00 - 0.08 10? 3 /uL 02/22/2023 3:[address] [facility] Immature Granulocytes % 0.3 0.0 - 1.0 % 02/22/2023 3:[address] [facility] Immature Granulocytes Absolute 0.03 02/22/2023 3:[address] [facility] Blood BLOOD SPECIMEN / Unknown Venipuncture / Unknown 02/22/2023 3:16 PM CDT 02/22/2023 3:19 PM CDT Anabela Meza MD LAB - HEMATOLOGY ORD ERABLES [facility] [address] [place] [address], [facility] [phone] * CARDIAC EKG ORDER (11/01/2022 1:25 PM CDT) Narrative 11/01/2022 1:25 PM CDT Ordered by an unspecified provider. Scanned Document CARDIAC SERVICES ORD ERABLES * (ABNORMAL) RENAL FUNCTION PANEL (10/31/2022 12:37 AM CDT) Only the most recent of3 resultswithin the time period is included. BUN <5(L) 7 - 26 mg/dL 10/31/2022 2:[address] [facility] Creatinine 0.57 0.56 - 0.96 mg/dL 10/31/2022 2:[address] [facility] Sodium 139 136 - 145 mmol/L 10/31/2022 2:[address] [facility] Potassium 3.0(L) 3.5 - 4.5 mmol/L 10/31/2022 2:[address] [facility] Chloride 107 98 - 107 mmol/L 10/31/2022 2:03 AM T [facility] CO2 22 22 - 29 mmol/L 10/31/2022 2:03 AM [facility] Glucose 102 70 - 115 mg/dL 10/31/2022 2:03 AM [facility] Albumin 3.3(L) 3.4 - 5.0 g/dL 10/31/2022 2:03 AM [facility] Calcium 9.0 8.4 - 10.2 mg/dL 10/31/2022 2:03 AM [facility] Phosphorus 1.7(L) 2.9 - 5.1 mg/dL 10/31/2022 2:03 AM [facility] Anion Gap 13 8 - 18 10/31/2022 2:03 AM [facility] BUN/Creatinine Ratio <9 7 - 23 10/31/2022 2:03 AM [facility] Osmolality Calculated <285 270 - 300 mOsm/kg 10/31/2022 2:03 AM [facility] eGFR by CKD-EPI >90 >=90 mL/min/1.7 3 m2 10/31/2022 2:03 AM [facility] Blood BLOOD SPECIMEN / Unknown Lab Venipuncture / Unknown 10/31/2022 12:37 AM CDT 10/31/2022 1:35 AM T Allan Stauffer MD LAB - CHEMISTRY ORDE [facility] Organization Address City/State/ZIP Co de Phone Number [facility] [address] [place] [address], [facility] [phone] * IRON + TRANSFERRIN PANEL (10/31/2022 12:37 AM CDT) Iron 81 40 - 150 ug/dL 10/31/2022 1:57 AM [facility] Transferrin 220 174 - 382 mg/dL 10/31/2022 1:57 AM [facility] Transferrin Saturation % 29 16 - 50 % 10/31/2022 1:57 AM [facility] TIBC Calculated 275 240 - 450 ug/dL 10/31/2022 1:57 AM [facility] Blood BLOOD SPECIMEN / Unknown Lab Venipuncture / Unknown 10/31/2022 12:37 AM CDT 10/31/2022 1:34 AM CDT Allan Stauffer MD LAB - CHEMISTRY ORIN BENZ Performing Organization Address City/[facility]/ZIP Co de Phone Number [facility] [address] [place] [address], [place] [phone] * (ABNORMAL) FERRITIN (10/31/2022 12:37 AM CDT) Ferritin 254(H) 13 - 204 ng/mL 10/31/2022 2:[address] [facility] Blood BLOOD SPECIMEN / Unknown Lab Venipuncture / Unknown 10/31/2022 12:37 AM CDT 10/31/2022 1:34 AM CDT Allan Stauffer MD LAB - CHEMISTRY ORIN BENZ Performing Organization Address [facility] Co de Phone Number [facility] [address] [place] [address], [place] [phone] * LIPID PROFILE (10/31/2022 12:37 AM CDT) Cholesterol Total 157 <200 mg/dL 10/31/2022 2:[address] [facility] HDL 48 >40 mg/dL 10/31/2022 2:[address] [facility] Comment: ATP III Classification of HDL Cholesterol: ? <40 mg/dL: ??Considered a major risk factor. ? >60 mg/dL: ??Considered a negative risk factor. ? LDL Calculated 98 <100 mg/dL 10/31/2022 2:[address] [facility] Comment: ATP III Classification of LDL Cholesterol: ?<100 mg/dL: ??Optimal ? 100 - 129 mg/dL: ??Near Optimal/Above Optimal ? 130 - 159 mg/dL: ??Borderline High ? 160 - 189 mg/dL: ??High ?>190 mg/dL: ??Very High ? Triglycerides 56 <150 mg/dL 10/31/2022 2:[address] [facility] Comment: ATP III Classification of Triglycerides: ?<150 mg/dL: ??Normal ? 150 - 199 mg/dL: ??Borderline High ? 200 - 400 mg/dL: ??High ?>500 mg/dL: ??Very High Blood BLOOD SPECIMEN / Unknown Lab Venipuncture / Unknown 10/31/2022 12:37 AM CDT 10/31/2022 1:35 AM CDT Allan Stauffer MD LAB - CHEMISTRY ORDE [facility] [address] [place] [address], [facility] [phone] * XR ABDOMEN KUB PORTABLE (10/29/2022 12:15 PM CDT) Anatomical Region Laterality Modality Abdomen Radiographic Samanta ging 10/29/2022 12:2 9 PM CDT Impressions 10/29/2022 12:32 PM CDT IMPRESSION: Nonobstructive bowel gas pattern. > Interpreting Provider: Sandra Mario MD on 10/29/2022 12:32 PM Narrative 10/29/2022 12:32 PM CDT PROCEDURE: ??XR ABDOMEN KUB PORTABLE DATE/TIME OF EXAM: ??10/29/2022 12:15 PM Indication: K85.90: Acute pancreatitis, unspecified complication status, unspecified pancreatitis type E87.29: Alcoholic ketoacidosis Concern for obstruction, hasn't passed gas in 5 days. COMPARISON: None. FINDINGS: There is no dilatation of small or large bowel. There is no pathologic calcification. Free air cannot be excluded on this supine exam. The visible osseous structures are unremarkable. Procedure Note Sandra Mario MD - 10/29/2022 PROCEDURE: XR ABDOMEN KUB PORTABLE DATE/TIME OF EXAM: 10/29/2022 12:15 PM Indication: K85.90: Acute pancreatitis, unspecified complication status, unspecified pancreatitis type E87.29: Alcoholic ketoacidosis Concern for obstruction, hasn't passed gas in 5 days. COMPARISON: None. FINDINGS: There is no dilatation of small or large bowel. There is no pathologic calcification. Free air cannot be excluded on this supine exam. Thevisible osseous structures are unremarkable. IMPRESSION: Nonobstructive bowel gas pattern. > Interpreting Provider: Sandra Mario MD on 10/29/2022 12:32 PM Inez Diaz MD DIAGNOSTIC IMAGING O RDERABLES * (ABNORMAL) HYDROXYBUTYRATE BETA (10/29/2022 10:02 AM CDT) Pathologist [facility] Beta-Hydroxybu tyrate 5.55(H) <0.50 mmol/L 10/29/2022 10:39 AM CDT [facility] Comment:Result obtained by juan scanlon. Blood BLOOD SPECIMEN / Unknown Venipuncture / Unknown 10/29/2022 10:02 AM CDT 10/29/2022 10:15 AM CDT Damion Pardo MD LAB - CHEMISTRY ORD ERABLES [facility] [address] [address], [facility] [phone] * EKG 12-LEAD (10/29/2022 7:31 AM CDT) Ventricular Rate 53 BPM [facility] Atrial Rate 53 BPM [facility] P-R Interval 154 ms [facility] QRS Duration ms 82 ms [facility] Q-T Interval ms 446 ms [facility] QTC Calculation (Bezet) 418 ms [facility] Calculated P [place] -3 degrees [facility] Calculated R [place] 71 degrees [facility] Calculated T [place] 59 degrees [facility] Interpretation EKG SINUS BRADYCARDIA WITH SINUS ARRHYTHMIA OTHERWISE NORMAL ECG Confirmed by Candace Martinez ([id number]) on 11/04/2022 7:30:40 AM [facility] 10/29/2022 7:31 AM CDT 11/04/2022 7:30 AM CDT Damion Pardo MD ECG ORDERABLES [facility] * (ABNORMAL) URINALYSIS W/MICROSCOPIC NO CULTURE (10/29/2022 6:50 AM CDT) Color UA Yellow Straw, Yellow 10/29/2022 7:03 AM [facility] Clarity UA Cloudy(A) Clear 10/29/2022 7:03 AM [facility] Specific [place] UA 1.018 1.005 - 1.030 10/29/2022 7:03 AM [facility] pH UA 5.0 5.0 - 8.0 pH 10/29/2022 7:03 AM [facility] Protein UA Negative Negative 10/29/2022 7:03 AM [facility] Glucose UA Negative Negative 10/29/2022 7:03 AM [facility] Ketone UA 2+(A) Negative 10/29/2022 7:03 AM [facility] Bilirubin UA Negative Negative 10/29/2022 7:03 AM [facility] Blood UA 1+(A) Negative 10/29/2022 7:03 AM [facility] Nitrite UA Negative Negative 10/29/2022 7:03 AM [facility] Leukocyte Esterase Negative Negative 10/29/2022 7:03 AM [facility] Urobilinogen UA Negative Negative mg/dL 10/29/2022 7:03 AM [facility] RBC UA 0-2 None Seen, 0-2, 3-5 /HPF 10/29/2022 7:03 AM [facility] WBC UA 0-5 None Seen, 0-5 /HPF 10/29/2022 7:03 AM [facility] Bacteria UA Trace(A) None /HPF 10/29/2022 7:03 AM [facility] Squamous Epithelial Cells UA 11-20(A) None Seen, 0-2, 3-5 /HPF 10/29/2022 7:03 AM [facility] Mucus UA 2+ /LPF 10/29/2022 7:[address] [facility] Urine URINE SPECIMEN OBTAINED BY CLEAN CATCH PROCEDURE / Unknown Collection / Unknown 10/29/2022 6:50 AM CDT 10/29/2022 6:[address] [facility] - 10/29/2022 7:03 AM CDT Damion Pardo MD LAB - URINALYSIS OR DERABLES [address] [address], [place] [phone] * TROPONIN-I HIGH SENSITIVE (10/29/2022 6:48 AM CDT) Troponin I High Sensitive <3 <=14 ng/L 10/29/2022 7:[address] [facility] Blood BLOOD SPECIMEN / Unknown Venipuncture / Unknown 10/29/2022 6:48 AM CDT 10/29/2022 6:55 AM CDT Damion Pardo MD LAB - CHEMISTRY ORD ERABLES Performing Organization Address City/[facility]/ZIP Co de Phone Number [address] [address], [place] [phone] * C-REACTIVE PROTEIN (10/29/2022 6:48 AM CDT) C-Reactive Protein <0.5 <=0.5 mg/dL 10/29/2022 7:[address] [facility] Blood BLOOD SPECIMEN / Unknown Venipuncture / Unknown 10/29/2022 6:48 AM CDT 10/29/2022 6:55 AM CDT Damion Pardo MD LAB - CHEMISTRY ORD ERABLES [address] [address], [place] [phone] * (ABNORMAL) ERYTHROCYTE SEDIMENTATION RATE (10/29/2022 6:48 AM CDT) Pathologist [facility] Erythrocyte Sedimentation Rate Westergren 25(H) 0 - 20 MM/HR 10/29/2022 7:[address] [facility] Blood BLOOD SPECIMEN / Unknown Venipuncture / Unknown 10/29/2022 6:48 AM CDT 10/29/2022 6:58 AM CDT Damion Pardo MD LAB - HEMATOLOGY OR DERABLES Performing Organization Address City/[facility]/ZIP Co de Phone Number [address] [address], [facility] [phone] * LACTIC ACID BLOOD (10/29/2022 6:48 AM CDT) Pathologist [facility] Lactic Acid-Stat 1.0 <=2.0 mmol/L 10/29/2022 7:[address] [facility] Blood BLOOD SPECIMEN / Unknown Venipuncture / Unknown 10/29/2022 6:48 AM CDT 10/29/2022 6:58 AM CDT Damion Pardo MD LAB - CHEMISTRY ORD ERABLES [address] [address], [facility] [phone]
--- OUTSIDE RECORDS SUMMARY | 2024-08-04 08:23 | XMS_ITS | CONTINUITY OF CARE DOCUMENT ---
Author Name baldo bland Address Unknown Organization [facility] Address [address] [place] [address] [address] [place] [address] Phone [phone] Care Team Providers Care It Security Administrator Name Role Phone Sandra KAPLAN, Guille Unavailable Guille Flores MD Unavailable [phone] INSURANCE PROVIDERS Payer name Policy type / Coverage type [employer] ID [employer] [employer] (2) Medicaid [id number]
--- OUTSIDE RECORDS SUMMARY | 2024-08-04 08:23 | XMS_ITS | Encounter Summary ---
Author Organization [facility] Healthcare Address [address] [place] [address] Care Team Providers Care Hospital Cook Name Role Phone Morgan Turner MD Primary Care Provider [phone] Ashish Morrow MD Unavailable [phone] Silvia Zhang MA Unavailable Unavailable DecherdLoida [facility] Unavailable [phone] Reason for Visit * Reason Onset Date Comments alcohol intoxification 06/06/2024 Encounter Details Date Type Department Care Team (Late st Contact Info) Description 06/06/2024 Nurse Triage Family Physicians [facility] [address] [facility] [place] [address] Morgan Turner MD [address] [place] [address] Social History Tobacco Use Types Packs/Day Years Used Date Smoking Tobacco: Every Day Vaping Alcohol Use Standard Drinks/Week Comments Yes 0 (1 standard drink = 0.6 oz pur e alcohol) Pint of alcohol a day [facility] Utilities Answer Date Recorded In the past 12 months has [employer] electric, gas, oil, or water company threatened to shut off services in your home? Yes 06/08/2024 Social Connection and Isolation Panel [NHANES] A nswer Date Recorded In a typical week, how many times do you talk on the phone with family, friends, or neighbors? Three times a week 06/08/2024 How often do you get togethe r with friends or relatives? Three times a week 06/08/2024 How often do you attend chur ch or roman catholic services? Never 06/08/2024 Do you belong to any clubs o r organizations such as moravian groups, unions, fraternal or athletic groups, or school groups? No 06/08/2024 How often do you attend meet ings of the clubs or organizations you belong to? Never 06/08/2024 Are you , , di vorced, , never , or living with a partner? Never 06/08/2024 Overall Financial Resource Strain (CARDIA) Answe r Date Recorded How hard is it for you to pa y for the very basics like food, housing, medical care, and heating? Hard 06/08/2024 PHQ-2 Answer Date Recorded PHQ-2 Total Score (If total score is 3 or more points, staff should administer the PHQ-9) 6 01/18/2024 Hunger Vital Sign Answer Date Recorded Within the past 12 months, y ou worried that your food would run out before you got the money to buy more. Sometimes true Within the past 12 months, t he food you bought just didn't last and you didn't have money to get more. Sometimes true 12/2023 PRAPARE - Transportation Answer Date Re corded In the past 12 months, has l ack of transportation kept you from medical appointments or from getting medications? Yes 12/2023 In the past 12 months, has l ack of transportation kept you from meetings, work, or from getting things needed for daily living? Yes 06/08/2024 Housing Stability Vital Sign Answer Derrick e Recorded In the last 12 months, was t here a time when you were not able to pay the mortgage or rent on time? No 06/08/2024 In the past 12 months, how m any times have you moved where you were living? 0 06/08/2024 At any time in the past 12 m [facility], were you homeless or living in a correction (including now)? No 06/08/2024 Personal Safety Answer Date Recorded Have you ever been in or are you currently in a harmful physical or emotional relationship or is someone making you feel afraid or unsafe? Denies 06/08/2024 Education Answer Date Recorded What is the highest level of school you have completed or the highest degree you have received? 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 Denies feeling confused and denies slurred speech. States she is drinking alcohol for personal reasons. She suffers from PTSD, bipolar, homicidal ideation and suicidal ideation. Currently denies thoughts of harming herself or others. She has been drinking today and has drank almost a half a pint of vodka. Currently states she does not feel good, she feels off, feels drunk. Her abdomen hurts on the left side. Rates herpain as mild. Every once in a while there is a sharp pain. She feels hot and then cold. She is sweating profusely. She has had withdrawal in the past - last in November or December of this year. States she called her neighbor to come sit with her. Triage Protocol Recommends: Go to ER/[facility] Now or to Office with PCP Approval. SC sent to Dr. Turner. Response received for patient to go to ER. I spoke with patient who states she needs a moment of silence - RN stayed on the line with patient. RN educated patient being evaluated in ER is what is best and safest for her. She states she wants to self detox and just wants to get off of alcohol. Again RN educated it is Dr. Turner's recommendation that she go to ER now. Educated patient that she needs tomake an educated decision that if she chooses not to go to ER she could cause chronic/permanent damage. Her neighbor can be heard telling her in the background that it would be the safest thing to do, to go to ER. Patient states she does not know what she is going to do. Her neighbor states he willtry to convince her to go to the ER and will stay with her at her home until she decides what she is going to do. She asked me to document is all she is trying to do is self detox because she does not like hospitals. She states she has the medication and has self detoxed before. Care Advice Given: Have someone drive you. Educated patient to call back if worsens, new symptoms develop or has further questions/concerns. Provider contacted via secure chat for ED disposition consult. Recommendation from provider:Proceedto ED Reason for Disposition Patient sounds very sick or weak to the triager Protocols used: Alcohol Use and [id number] RY RIG ENGINE OPERATOR documented in this encounter Plan of Treatment Upcoming Encounters Date Type Department Care Team (Latest Contact Info) Description 12/11/2024 12:00 PM CDT Hospital Encounter [address] [address] Ashish Morrow MD [address] [place] [address] DR MCCON[address]LL [address] [place] [address] 12/11/2024 12:00 PM CDT - 12/11/2024 12:35 PM CDT Surgery [address] [address] Ashish Morrow MD [address] [place] [address] DR MCCONNELL [address] [place] [address] ESOPHAGOGASTRODUODENOSCOPY Scheduled Procedures Name Priority Associated Diagnoses Date/Ti tx ESOPHAGOGASTRODUODENOSCOPY Erosive esophagitis 12/11/2024 12:00 PM CDT documented as of this encounter Visit Diagnoses Not on filedocumented in this encounter Care Teams Hospital Cook Relationship Specialty Start Date End Date Morgan Turner MD [address] [place] [address] PCP - General Family Medicine 01/18/24 Ashish Morrow MD [address] [facility] [address] [place] [address] Consulting Physician Gastroenterology 06/09/24 Silvia Zhang, MERLE [address] [facility] [address] [place] [address] ACO Care Integrated Logistics Operations Manager 07/24/24 07/24/24 Loida Aburto, ROUND KILN DRAWER [address] [place] [address] [place] [address] Burr Filer 07/25/24 documented as of this encounter
--- OUTSIDE RECORDS SUMMARY | 2024-08-04 08:23 | XMS_ITS | Clinical Summary ---
Author Organization [facility] [employer] Address [address] [place] [address] Care Team Providers Care Cloth Tester Name Role Phone Unavailable Primary Care Provider Unavailabl e Source Comments [facility],non-owned Affiliates and Associated Physician Practices is amultiple site organization consisting of ambulatory clinics and hospital sitesin [place], [place], [place] and [place]. This disclosure is being madepursuant to the Care Everywhere program and may not contain all information available regarding this patient. Last updated 18.[facility] [employer] Allergies No known active allergies Medications Be [...] housing, medical care, and heating? Hard 10/29/2022 [facility] [place] [facility] - Occupational Stress [...] place to sleep or slept in a [place] health care facility (including now)? No 10/29/2022 Sex and Gender [...] Mass Index 24.21 02/22/2023 11:34 AM CDT Plan of Treatment Health Maintenance Due Date Last Done Comments PAP SMEAR 1995 HIV SCREENING 2010 HEPATITIS C SCREENING 06/18/2013 DTAP/TDAP/TD VACCINES (1 - Tdap) 2014 HEPATITIS B VACCINE (1 of 3 - 19+ 3-dose series) 2014 PNEUMOCOCCAL VACCINE (1 of 2 - PCV) 2014 COVID-19 VACCINE (2 - season) 2024 05/27/2021 INFLUENZA VACCINE (#1) 2024 , 04/21/2019, 03/16/2019, Additional history exists DEPRESSION SCREENING 07/04/2024 ZOSTER VACCINE (1 of 2) 2045 HIB VACCINE Aged Out No longer eligi ble based on patient's age to complete this topic HPV VACCINE Aged Out No longer eligi ble based on patient's age to complete this topic MENINGOCOCCAL (Group B) VACCINE Aged Out No longer eligible based on patient's age to complete this topic MENINGOCOCCAL VACCINE Aged Out No radha loi eligible based on patient's age to complete this topic Advance Directives * Full Code (Latest Code Status on File) Date Activated Date Inactivated Comments 02/23/2023 5:32 AM 02/23/2023 2:00 PM * Full Code Date Activated Date Inactivated Comments 10/29/2022 11:19 AM 11/01/2022 11:54 AM
--- OUTSIDE RECORDS SUMMARY | 2024-08-04 08:23 | XMS_ITS | Encounter Summary ---
Author Organization [facility] Healthcare Address [address] [place] [address] Care Team Providers Care Electronic Sales And Service Technician Name Role Phone No, Physician Primary Care Provider [phone] Morgan Turner MD Primary Care Provider [phone] Ashish Morrow MD Unavailable Silvia Zhang MA Unavailable Unavailable Loida AburtoW Unavailable [phone] Encounter Details Date Type Department Care Team (Late st Contact Info) Description 01/16/2024 [facility] Post [place] [address] Dhara Laughlin, RN Social History Tobacco Use Types Packs/Day Years Used Date Smoking Tobacco: Every Day Vaping Alcohol Use Standard Drinks/Week Comments Yes 0 (1 standard drink = 0.6 oz pur e alcohol) Pint of alcohol a day [facility] Utilities Answer Date Recorded In the past 12 months has [employer]), gas, oil, or water [employer] threatened to shut off services in your home? Yes 01/12/2024 Social Connection and Isolation Panel [NHANES] A nswer Date Recorded In a typical week, how many times do you talk on the phone with family, friends, or neighbors? Three times a week 01/12/2024 How often do you get togethe r with friends or relatives? Three times a week 01/12/2024 How often do you attend chur ch or rastafari services? Never 01/12/2024 Do you belong to any clubs o r organizations such as presybeterian groups, unions, fraternal or athletic groups, or school groups? No 01/12/2024 How often do you attend meet ings of the clubs or organizations you belong to? Never 01/12/2024 Are you , , di vorced, , never , or living with a partner? Never 01/12/2024 Overall Financial Resource Strain (CARDIA) Answe r Date Recorded How hard is it for you to pa y for the very basics like food, housing, medical care, and heating? Hard 01/12/2024 PHQ-2 Answer Date Recorded PHQ-2 Total Score [...] have money to get more. Sometimes true 05/2024 PRAPARE - Transportation Answer Date Re corded In the past 12 months, has l ack of transportation kept you from medical appointments or from getting medications? Yes 01/01 In the past 12 months, has l ack of transportation kept you from meetings, work, or from getting things needed for daily living? Yes 01/12/2024 Housing Stability Vital Sign Answer Derrick e Recorded In the last 12 months, was t here a time when you were not able to pay the mortgage or rent on time? No 01/12/2024 In the past 12 months, how m any times have you moved where you were living? 0 01/12/2024 At any time in the past 12 m [facility], were you homeless or living in a longterm (including now)? No 01/12/2024 Personal Safety Answer Date Recorded Have you ever been in or are you currently in a harmful physical or emotional relationship or is someone making you feel afraid or unsafe? Denies 01/11/2024 Education Answer Date Recorded What is the highest level of school you have completed or the highest degree you have received? GED or equivalent 05/2024 Comments Unknown Sex and Gender Information Value Date Recorded Sex Assigned at Not on file Legal Sex Female 6:50 PM HOURLY TEAM MEMBERS Gender Identity Not on file Sexual Orientation Not on file documented as of this encounter Nursing Notes * Dhara aLughlin RN - 01/16/2024 12:47 PM CDT Discharge call complete, Follow up requested from Medical stabilization. Will communicate with [facility] and ask them to call her. documented in this encounter Plan of Treatment Upcoming Encounters Date Type Department Care Team (Latest Contact Info) Description 12/11/2024 12:00 PM CDT Hospital Encounter [address] [address] Ashish Morrow MD [address] [facility] [place] [address] 12/11/2024 12:00 PM CDT - 12/11/2024 12:35 PM CDT Surgery [address] [address] Ashish Morrow MD [address] [place] [address] [place] [address] ESOPHAGOGASTRODUODENOSCOPY Scheduled Procedures Name Priority Associated Diagnoses Date/Ti or ESOPHAGOGASTRODUODENOSCOPY Erosive esophagitis 12/11/2024 12:00 PM CDT documented as of this encounter Visit Diagnoses Not on filedocumented in this encounter Care Teams Electronic Sales And Service Technician Relationship Specialty Start Date End Date No, Physician PCP - General 01/11/24 01/17/24 Morgan Turner MD [address] [place] [address] PCP - General Family Medicine 01/18/24 Ashish Morrow MD [address] [place] [address] [place] [address] Consulting Physician Gastroenterology 06/09/24 Silvia Zhang, MERLE [address] [facility] [address] [place] [address] ACO Care Etl Analyst Developer 07/24/24 07/24/24 Loida Aburto, WOMEN'S STUDIES LECTURER [address] [place] [address] Brand Leader 07/25/24 documented as of this encounter
--- OUTSIDE RECORDS SUMMARY | 2024-08-04 08:23 | XMS_ITS | Encounter Summary ---
Author Organization [facility] Healthcare Address [address] [place] [address] Care Team Providers Care Occupancy Specialist Name Role Phone Morgan Turner MD Primary Care Provider [phone] Ashish Morrow MD Unavailable [phone] Loida Aburto [facility] Unavailable [phone] Reason for Visit * Reason Onset Date Comments feet pain 08/03/2024 Encounter Details Date Type Department Care Team (Late st Contact Info) Description 08/03/2024 Nurse Triage Family Physicians [facility] [address] [facility] [place] [address] Morgan Turner MD [address] [place] [address] Social History Tobacco Use Types Packs/Day Years Used Date Smoking Tobacco: Every Day Vaping Alcohol Use Standard Drinks/Week Comments Yes 0 (1 standard drink = 0.6 oz pur e alcohol) Pint of alcohol a day [facility] Utilities Answer Date Recorded In the past 12 months has [employer], gas, oil, or water company threatened [...] often do you attend chur ch or amish services? Never 07/25/2024 Do you belong to any clubs o r organizations such as mandaeism groups, unions, fraternal or athletic groups, or [...] any time in the past 12 m [facility], were you homeless or living in a alf (including now)? 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 She has pain in the bottom of her feet. C/O severe pain in her feet, right in the middle. She spoke with office earlier today but did not discuss this issue. The bottom of her feet feel like they are on fire. She has soaked her feet and applied antifungal cream on her feet. Denies injury. States her feet are swollenon the bottom of her feet. States symptoms started yesterday. Please contact patient to discuss treatment plan. Care Advice Given: Continue cool soaks, keep feet elevated Educated patient to call back if worsens, new symptoms develop or has further questions/concerns. Reason for Disposition SEVERE pain (e.g., excruciating, unable to do any normal activities) Protocols used: Foot Nvum-Htzxo-NC R PLANT MAINTENANCE MECHANIC * Telephone Encounter - Yin Torres RN - 08/03/2024 10:02 AM CST Regarding: itchy and burning rash all over body ----- Message from Chary Casas sent at 08/03/2024 8:28 AM WATER PLANT MAINTENANCE MECHANIC ----- Symptom Based Call Chief Complaint(s): itchy and burning rash all over body Duration: 2 days ago What type of symptom(s) is the patient experiencing? Non-Emergent. Is this a new or reoccurring symptom(s)? New What have you tried to help your symptom(s)? Nothing Why was appointment not scheduled? Requesting advice from clinical count team member. Additional Comments: Patient received a naltrexone microspheres (VIVITROL) intramuscular injection 380 mg 07/26. She would like to know if that could cause the rash? Does message need to be routed? Yes-Action Needed R PLANT MAINTENANCE MECHANIC documented in this encounter Plan of Treatment Upcoming Encounters Date Type Department Care Team (Latest Contact Info) Description 12/11/2024 12:00 PM CDT Hospital Encounter [address] [address] Ashish Morrow MD [address] [facility] [place] [address] 12/11/2024 12:00 PM CDT - 12/11/2024 12:35 PM CDT Surgery [address] [address] Ashish Morrow MD [address] [facility] [address] [place] [address] ESOPHAGOGASTRODUODENOSCOPY Scheduled Procedures Name Priority Associated Diagnoses Date/Ti az ESOPHAGOGASTRODUODENOSCOPY Erosive esophagitis 12/11/2024 12:00 PM CDT documented as of this encounter Visit Diagnoses Not on filedocumented in this encounter Care Teams Occupancy Specialist Relationship Specialty Start Date End Date Morgan Turner MD [address] [place] [address] PCP - General Family Medicine 01/18/24 Ashish Morrow MD [address] [place] [address] [address] [place], [place] [address] [place] [address] Consulting Physician Gastroenterology 06/09/24 Loida Aburto, WATER RESTORATION TECHNICIAN [address] [facility] [place] [address] Travel Assistant 07/25/24 documented as of this encounter
--- OUTSIDE RECORDS SUMMARY | 2024-08-04 08:23 | XMS_ITS | Clinical Summary ---
Author Organization [facility] Address [address] [place] [address] Care Team Providers Care Sales Market Leader Name Role Phone Morgan Turner MD Primary Care Provider [phone] Ashish Morrow MD Unavailable [phone] Loida Aburto [facility] Unavailable [phone] Allergies Active Allergy Reactions Criticality Noted Date [...] 04/12/2024 Assessment & Plan (07/23/2024 11:09 AM RUG DYER HELPER): Currently on pantoprazole. EGD scheduled in the summer. Assessment & Plan (07/17/2024 4:44 PM RUG DYER HELPER): Stable, well controlled; no current stomach pain, [...] follow with counseling and psychiatry services through [place] Major depressive disorder, single episode, unspe cified 01/18/2024 Assessment & Plan (04/12/2024 3:12 PM CDT): Stable, generally well controlled, in general good mood [facility] Continue quetiapine 25 mg daily, Librium 25 mg, hydroxyzine 50 mg p.r.n. 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 Anxiety disorder, unspecified 01/18/2024 Chronic post-traumatic stress disorder Assessment & Plan (07/23/2024 11:11 AM RUG DYER HELPER): Has supportive friend and father. Encouraged working with counselor. Alcohol dependence with unco mplicated intoxication (CMS/HCC) 01/11/2024 Assessment & Plan (07/23/2024 11:11 AM RUG DYER HELPER): Will proceed to [facility] ED for Vivitrol injection today. Will return for her follow-up appointment in 10 days with PCP. Encouragement provided. Safety reviewed. Assessment & Plan (07/17/2024 4:43 PM RUG DYER HELPER): Stable, improving; no alcohol since last visit; due for injection on July 15, but would like to delay in order to allow for some alcohol use Discourage delay; would continue naltrexone monthly; add acamprosate 2 tablets t.i.d. Assessment & Plan (06/07/2024 4:51 PM RUG DYER HELPER): Not well controlled, can had recent relapse, [...] doing better at this time; engaged with coach mechanic; discussion with Peer occupational therapy specialist today Encouraged continued work towards complete cessation [...] Alcoholic ketoacidosis 02/23/2023 Alcoholic intoxication without complication (CMS /HCC) 02/23/2023 Acute pancreatitis 10/29/2022 Encounters Date Type Department Care Team Description 08/03/19 Nurse Triage [facility] [address] [phone] Morgan Turner MD 07/29/19 [facility] Triage [facility] [address] [phone] Morgan Turner MD 07/26/19 25 11:30 AM RUG DYER HELPER Clinical Support [facility] [address] [phone] Alcohol dependence with uncomplicated intoxication (CMS/HCC) (HCC) (Primary Dx) 07/26/19 25 Telephone [facility] [address] [phone] Morgan Turner MD Medication Problem 07/26/19 25 Telephone [facility] [address] [phone] Morgan Turner MD Vivitrol Injection Received 07/25/19 25 Telephone [facility] Accountable Care Organization [address] [place] [id number] Loida Aburto LCSW Error (Erroneous Encounter) 07/25/19 Nurse Triage [facility] [address] [phone] Morgan Turner MD 07/25/19 Telephone [facility] [address] [phone] Morgan Turner MD 07/25/19 Telephone [facility] [address] [phone] Morgan Turner MD Medication Request 07/24/19 [facility] ED Outreach [facility] [address] [place] [address] Silvia Zhang MA 07/23/19 11:44 AM RUG DYER HELPER - 07/23/19 2:11 PM RUG DYER HELPER Emergency [facility] Emergency Department [address] [place] [address] Joseph Kimble MD Alcohol abuse (Primary Dx) Discharge Disposition: Discharge to home or self care 07/23/19 10:30 AM RUG DYER HELPER Office Visit [facility] [address] [phone] Suzanne Jade, VENECIA Chronic alcoholic gastritis without hemorrhage (Primary Dx); Alcohol dependence with uncomplicated intoxication (CMS/HCC) (HCC) 07/23/19 Nurse Triage [facility] [address] [phone] Zulma Obrien RN 07/23/19 [facility] Warm Hand Off Program [address] [place], [place] [phone] Jhon Dias 07/23/19 Telephone [facility] [address] [phone] Morgan Turner MD Medical Question/Miscellaneous 07/22/19 Nurse Triage [facility] [address] [phone] Morgan Turner MD 07/21/19 Nurse Triage [facility] [address] [phone] oMrgan Turner MD 07/20/19 25 Telephone [facility] [address] [phone] Morgan Turner MD Additional Services Or Orders; Medical Question/Miscellaneous 07/05/19 25 1:30 PM RUG DYER HELPER Office Visit [facility] [address] [phone] Morgan Turner MD Alcohol dependence with uncomplicated intoxication (CMS/HCC) (HCC) (Primary Dx); Chronic alcoholic gastritis without hemorrhage 07/05/19 25 Documentation [facility] Warm Hand Off Program [address] [place] [address] Jhon Dias 06/20/20 24 Telephone [facility] Medical Group Gastroenterology at [address] [place] [phone] La Tolentino 06/14/20 24 11:45 AM RUG DYER HELPER Clinical Support [facility] [address] [phone] Alcohol dependence with uncomplicated intoxication (CMS/HCC) (HCC) (Primary Dx) 06/14/20 24 Telephone [facility] [address] [phone] Morgan Turner MD 06/12/20 24 Telephone [facility] [address] [phone] Morgan Turner MD Med Refill 06/11/20 24 [facility] Post Discharge Follow up phone call [facility] Surgery Care [address] [place] [phone] Pam Elliott 06/09/20 24 10:05 AM RUG DYER HELPER - 06/09/20 24 10:35 AM RUG DYER HELPER Surgery [address] [address] Ashish Morrow MD ESOPHAGOGASTRODUODENOSCOPY BIOPSY 06/09/20 24 10:04 AM RUG DYER HELPER Anesthesia Event [address] [place] [address] Ashish Morrow MD Standefer, Andrew J., CRNA 06/07/20 10:33 PM RUG DYER HELPER - 06/09/20 3:09 PM RUG DYER HELPER Hospital Encounter [facility] Surgery Care [address] [place] [address] Jacquelin Joshi MD Hanson, Thomas S., MD Petters, Ekanga Sunday, MD Nikolic, Jelena, MD Upper GI bleed (Primary Dx) Discharge Disposition: Discharge to home or self care 06/07/20 9:30 AM RUG DYER HELPER Office Visit [facility] [address] [phone] Morgan Turner MD LLQ pain (Primary Dx); Nausea and vomiting, unspecified vomiting type; Alcohol dependence with uncomplicated intoxication (CMS/HCC) (HCC); Hematemesis with nausea 06/07/20 Nurse Triage [facility] [address] [phone] Morgan Turner MD 06/07/20 Documentation [facility] Warm Hand Off Program [address] [place] [address] Jhon Dias 06/06/20 24 Orders Only [facility] Health Information Management [address] [place] [address] Morgan Turner MD 06/06/20 Nurse Triage [facility] [address] [phone] Morgan Turner MD from Last 3 Months Immunizations Name Administration Dates Next Due Adenovirus [...] OPV 1995,1995,1995 Tdap 09/30/2017,09/26/2009 Varicella 11/02/2017, 8,04/21/2010,03/20 Family History Medical History Relation Name Comments Hypertension Father Diabetes Maternal Grandmother Hypertension Maternal Grandmother Hypertension Mother Relation Name Status Comments Father Maternal Grandmother Mother Social History Tobacco Use Types Packs/Day Years Used Date Smoking Tobacco: Every Day Vaping Tobacco Cessation:Ready to Q uit: Yes; Counseling Given: Yes Alcohol Use Standard Drinks/Week Comments Yes 0 (1 standard drink = 0.6 oz pur e alcohol) Pint of alcohol a day [facility] [employer] Answer Date Recorded In the past 12 months has [employer], gas, oil, or water [employer] threatened to shut off services in your [...] often do you attend chur ch or church services? Never 07/25/2024 Do you belong to any clubs o r organizations such as buddhism groups, unions, fraternal or athletic groups, or [...] any time in the past 12 m [facility], were you homeless or living in a penitentiary (including now)? No 07/25/2024 Personal Safety Answer [...] on file Legal Sex Female 6:50 PM RUG DYER HELPER Gender Identity Not on file Sexual Orientation Not on file Obstetrics History Last Filed Vital Signs Vital Sign Reading Time Taken Comments Blood Pressure 106/78 07/23/2024 2:00 PM RUG DYER HELPER Pulse 90 07/23/2024 2:00 PM RUG DYER HELPER Temperature 36.8 ??C (98.2 ??F) 07/23/2024 11:[address] Respiratory Rate 18 07/23/2024 2:00 PM RUG DYER HELPER Oxygen Saturation 100% 07/23/2024 2:00 PM RUG DYER HELPER Inhaled Oxygen Concentration - - Weight 68 kg (150 lb) 07/23/2024 11:43 AM RUG DYER HELPER Height 172.7 cm (5' 8 ) 07/23/2024 11:43 AM RUG DYER HELPER Body Mass Index 22.81 07/23/2024 11:43 AM RUG DYER HELPER Plan of Treatment Upcoming Encounters Date Type Department Care Team (Latest Contact Info) Description 12/11/2024 12:00 PM CDT Hospital Encounter [address] [address] Ashish Morrow MD [address] [place] [address] 12/11/2024 12:00 PM CDT - 12/11/2024 12:35 PM CDT Surgery [address] [address] Ashish Morrow MD [address] [place] [address] ESOPHAGOGASTRODUODENOSCOPY Scheduled Procedures Name Priority Associated Diagnoses Date/Ti me ESOPHAGOGASTRODUODENOSCOPY Erosive esophagitis 12/11/2024 12:00 PM CDT Health Maintenance Due Date Last Done Comments Cervical Cancer Screening 1995 Hepatitis C Screening 1995 Pneumococcal vaccine <65 (1 of 2 - PCV) 2001 Regular Well Visit/Exam 18-64 2013 Covid-19 Vaccine ( - 2023-2 5 season) 2024 05/27/2021 Depression Screening 01/17/2025 01/18/2024, 01/18/20 DTaP/Tdap/Td Vaccine (7 - Td or Tdap) 10/01/2027 09/30/2017, 09/26/2009, 03/15/2000, Additional history exists HPV Vaccines Completed 04/21/2010, 09/26/2009 Varicella Vaccines Completed 11/02/2017, 0 09/30/2017, 04/21/2010, Additional history exists Influenza Vaccine Completed 04/12/2024, , 04/21/2019, Additional history exists Procedures Procedure Name Priority Date/Time Associated Diagnosis Comments ESOPHAGOGASTRODUODENOSCOPY BIOPSY 06/09/2024 9:59 AM RUG DYER HELPER Upper GI bleed SURGICAL PATHOLOGY STAT 06/09/2024 9:15 AM RUG DYER HELPER Upper GI bleed EGFR Routine 06/09/2024 8:08 AM RUG DYER HELPER MAGNESIUM Routine 06/09/2024 8:08 AM RUG DYER HELPER COMPREHENSIVE METABOLIC PANEL Routine 8:08 AM RUG DYER HELPER EGD 06/09/2024 6:45 AM RUG DYER HELPER DIFFERENTIAL AUTO Routine 06/09/2024 6:21 AM RUG DYER HELPER ZINC Routine 06/09/2024 6:21 AM RUG DYER HELPER CBC WITH AUTO DIFFERENTIAL Routine 06/09 6:21 AM RUG DYER HELPER HEMOGLOBIN AND HEMATOCRIT Timed 2023 8:48 AM RUG DYER HELPER DIFFERENTIAL AUTO STAT 06/08/2024 2:34 AM RUG DYER HELPER CBC WITH AUTO DIFFERENTIAL STAT 06/08 2:34 AM RUG DYER HELPER OSMOLALITY, BLOOD Routine 06/08/2024 1:49 AM RUG DYER HELPER EGFR STAT 06/08/2024 1:49 AM RUG DYER HELPER BASIC METABOLIC PANEL STAT 06/08/2024 1:[address] CHEST PE ABDOMEN PELVIS W CONTRAST ED 06/08/2024 1:44 AM RUG DYER HELPER POCT HCG, URINE Routine 06/08/2024 1:11 AM RUG DYER HELPER URINALYSIS, MICROSCOPIC ONLY STAT 12/2023 12:39 AM RUG DYER HELPER URINALYSIS AND REFLEX TO MICROSCOPIC AND CULTURE STAT 06/08/2024 12:39 AM RUG DYER HELPER EGFR STAT 06/07/2024 11:00 PM RUG DYER HELPER DIFFERENTIAL AUTO STAT 06/07/2024 11:00 PM RUG DYER HELPER LIPASE STAT 06/07/2024 11:00 PM RUG DYER HELPER PROTIME-INR STAT 06/07/2024 11:00 PM RUG DYER HELPER SEPSIS LACTATE WITH REFLEX STAT 06/07 11:00 PM RUG DYER HELPER CBC WITH AUTO DIFFERENTIAL STAT 06/07 11:00 PM RUG DYER HELPER COMPREHENSIVE METABOLIC PANEL STAT 11:00 PM RUG DYER HELPER ETHANOL STAT 06/07/2024 11:00 PM RUG DYER HELPER ECG 12-LEAD STAT 06/07/2024 5:06 PM RUG DYER HELPER SCAN - RADIOLOGY/IMAGING 06/06/2024 from Last 3 Months Results * Surgical pathology (06/09/2024 9:15 AM RUG DYER HELPER) Tissue (EG Junction, Biopsy) 06/09/2024 10:16 AM RUG DYER HELPER Narrative PATHOLOGY [facility] ([place]) - 06/13/2024 6:28 PM RUG DYER HELPER EPIC results best viewed via link to PDF [facility] Department of Pathology [address] [place] [address] Note to Patients: This report may contain [...] explain the details. Final Report Patient Name: ??JAMES SALEH Address: ??[address] [place] [address] [address], ??[place], [place] [address] Gender: ??F : ??1995 (Age: 28) Service: ??Medical Location: ??[facility] Hospital #: ??[id number] Patient Type: ??[facility] Accession # ?[id number] Taken: ??06/09/2024 Received: ??06/11/2024 Accessioned: ??06/11/2024 Reported: [...] ??All in one cassette. Palomo Olivo R.N., P.Dick./Reji Giron M.D. REPORT IMAGES AND SCANNED DOCUMENTS, IF INCLUDED, ONLY VIEWABLE IN PDF VERSION OF REPORT The performance characteristics of some immunohistochemical stains, fluorescence in-situ hybridization tests and immunophenotyping by flow cytometry cited in this report (if any) were determined by the Surgical Pathology Department at [facility] as part of an ongoing quality compliance consultant program and in compliance with federally mandated [...] characteristics determined by the Surgical Pathology Department [facility]. ??It has not been cleared or approved by the U. S. Food and Drug Administration. Note for decalcified specimens: This assay has not been validated on decalcified tissues. Results should be interpreted with caution given the possibility of false negativity on decalcified specimens us Ashish Morrow MD LAB PATHOLOGY ORDERABLES F inal Result PATHOLOGY [facility] ([place]) [address] [place] [address] * eGFR (06/09/2024 8:08 AM RUG DYER HELPER) eGFR >90 >=60 mL/min/1. 73 m2 Comment: [...] last reviewed 2021. Blood 06/09/2024 8:08 AM RUG DYER HELPER 06/09/2024 8:25 AM RUG DYER HELPER Heike Childs MD LAB BLOOD ORDERABLES Final Res ult Performing Organization Address [facility] Co de Phone Number [place]) [address] [facility] [place] [place] [address] * Magnesium (06/09/2024 8:08 AM RUG DYER HELPER) Magnesium 1.8 1.4 - 2.5 mg/dL Blood 06/09/2024 8:08 AM RUG DYER HELPER 06/09/2024 8:25 AM RUG DYER HELPER Heike Childs MD LAB BLOOD ORDERABLES Final Res ult [place] ([place]) 1 [facility] [place] [address] * (ABNORMAL) Comprehensive metabolic panel (06/09/2024 8:08 AM RUG DYER HELPER) Sodium 137 135 - 145 mmol/L Potassium, pl 3.5 3.3 - 4.9 mmol/L [facility] ([place]) Chloride 106 97 - 110 mmol/L [facility] ([place]) CO2 19(L) 22 - 32 mmol/L [facility] ([place]) Anion gap 12 2 - 15 mmol/L [facility] ([place]) BUN 4(L) 6 - 25 mg/dL [facility] ([place]) Creatinine 0.64 0.60 - 1.10 mg/dL [facility] ([place]) Glucose 89 70 - 199 mg/dL [facility] ([place]) [...] 9.3 8.5 - 10.3 mg/dL [facility] ([place]) Bilirubin, total 0.7 0.1 - 1.2 mg/dL [...] Slightly Hemolyzed Specimen Blood 06/09/2024 8:08 AM RUG DYER HELPER 06/09/2024 8:25 AM RUG DYER HELPER us Heike Childs MD LAB BLOOD ORDERABLES Final Res ult [place] [facility] [place] 1 [facility] Department of Laboratories [place], [place] [id number] * EGD (06/09/2024 6:45 AM RUG DYER HELPER) Anatomical Region Laterality Modality Other Narrative Procedure Note Ashish Morrow MD - 06/09/2024 6:45 AM CST [facility] Patient Name: James Saleh Procedure Date: 06/09/2024 6:45 AM Date of : 1995 Admit Type: Inpatient Age: 28 Gender: Female Attending MD: Ashish Morrow M.D. Room: [facility] ENDOSCOPY ROOM 1 Note Status: [...] passed under direct vision. The Endoscope [id number] was introduced through the mouth, and advanced [...] 6:45 AM Procedure Code(s): --- Professional --- 25103, Esophagogastroduodenoscopy, flexible, transoral; with biopsy, single or multiple Diagnosis Code(s): --- Professional --- K21.00, Gastro-esophageal reflux disease with esophagitis, without bleeding K92.0, Hematemesis CPT copyright 2020 [employer]. All rights reserved. The codes documented in this report are preliminary and upon flight test supervisor reviewmay be revised to meet current compliance requirements. Recognized by the [employer] for promoting quality in endoscopy Ashish Morrow MD ENDOSCOPY PROCEDURES Final Result * Differential, auto (06/09/2024 6:21 AM RUG DYER HELPER) Neutrophil abs 1.7 1.5 - 6.5 K/cumm Imm gran abs 0.0 0.0 - 0.1 K/cumm [facility] ([place]) Lymphocyte abs 1.9 0.8 - 3.3 K/cumm [facility] ([place]) Monocyte abs 0.3 0.2 - 0.8 K/cumm [facility] ([place]) Eosinophil abs 0.1 0.0 - 0.5 K/cumm [...] revised on 2017. Blood 06/09/2024 6:21 AM RUG DYER HELPER 06/09/2024 6:38 AM RUG DYER HELPER us Ashish Morrow MD LAB BLOOD ORDERABLES Final Result [facility] ([place]) 1 [facility] Department [place] [address] * (ABNORMAL) CBC with auto differential (06/09/2024 6:21 AM RUG DYER HELPER) WBC 4.0 3.8 - 9.9 K/cumm Hgb [...] NRBC abs 0.00 0.00 - 0.01 K/cumm [place] [place] ([place]) Blood 06/09/2024 6:21 AM RUG DYER HELPER 06/09/2024 6:38 AM RUG DYER HELPER Ashish Morrow MD LAB BLOOD ORDERABLES Final Result Performing Organization Address [facility] Co de Phone Number [place] ([place]) 1 [facility] [employer] [place] [address] * (ABNORMAL) Zinc (06/09/2024 6:21 AM RUG DYER HELPER) Zinc 50(L) 60 - 106 mcg/dL [facility] ref Lab Comment: ADDITIONAL INFORMATION This test was developed and its performance characteristics determined by [facility] in a manner consistent with CLIA requirements. This test has not been cleared or approved by the U.S. Food and Drug Administration. Test Performed by: [facility] [place] [address] Sales Support Specialist: Jak Torres Ph.D.; CLIA# [id number] Blood 06/09/2024 6:21 AM RUG DYER HELPER 06/09/2024 6:38 AM RUG DYER HELPER us Ashish Morrow MD LAB BLOOD ORDERABLES Final Result Performing Organization Address [facility] Co de Phone Number [place] ([place]) 1 [facility] [employer] [place] [address] [facility] ref Lab * Hemoglobin and hematocrit (06/08/2024 8:48 AM RUG DYER HELPER) Hgb 11.9 11.9 - 15.5 g/dL Hct 37.7 35.6 - 45.5 % [place] [facility] ([place]) Blood 06/08/2024 8:48 AM RUG DYER HELPER 06/08/2024 8:51 AM RUG DYER HELPER us Heike Childs MD LAB BLOOD ORDERABLES Final Res ult [place] ([place]) 1 [facility] Department of Laboratories [place], [place] [id number] * Differential, auto (06/08/2024 2:34 AM RUG DYER HELPER) Neutrophil abs 6.5 1.5 - 6.5 K/cumm Imm gran abs 0.0 0.0 - 0.1 K/cumm [facility] ([place]) Lymphocyte abs 0.8 0.8 - 3.3 K/cumm [facility] ([place]) Monocyte abs 0.6 0.2 - 0.8 K/cumm [facility] ([place]) Eosinophil abs 0.0 0.0 - 0.5 K/cumm [facility] ([place]) Basophil abs 0.0 0.0 - 0.1 K/cumm [facility] ([place]) Neutrophil pct 81.6 % [facility] ([place]) Comment: Interpretive Data Percent cell count reference ranges are not reported, since discordance with absolute values may lead to misinterpretation of CBC data. Current Interpretive Data was last revised on 2017. Imm gran pct 0.3 % [facility] ([place]) Comment: Interpretive Data Percent cell count reference [...] revised on 2017. Blood 06/08/2024 2:34 AM RUG DYER HELPER 06/08/2024 3:00 AM RUG DYER HELPER Roddy Brown MD LAB BLOOD ORDERABLES Final R esult [facility] ([place]) 1 [facility] Department [place] [address] * (ABNORMAL) CBC with auto differential (06/08/2024 2:34 AM RUG DYER HELPER) WBC 7.9 3.8 - 9.9 K/cumm Hgb 11.1(L) 11.9 - 15.5 g/dL [facility] ([place]) Hct 34.4(L) 35.6 - 45.5 % [facility] ([place]) Plt 206 150 - 400 K/cumm [facility] ([place]) MPV 10.5 9.1 - 12.3 fL [facility] ([place]) RBC 4.66 3.90 - 5.20 M/cumm [facility] ([place]) MCV 73.8(L) 81.3 - 96.4 fL [facility] ([place]) MCH 23.8(L) 27.1 - 33.3 pg [facility] ([place]) MCHC 32.3 32.3 - 35.7 g/dL [facility] ([place]) RDW CV 16.5(H) 11.1 - 14.9 % [facility] ([place]) RDW SD 43.8 35.7 - 48.1 fL [facility] ([place]) NRBC abs 0.00 0.00 - 0.01 K/cumm [facility] ([place]) Blood 06/08/2024 2:34 AM RUG DYER HELPER 06/08/2024 3:00 AM RUG DYER HELPER Roddy Brown MD LAB BLOOD ORDERABLES Final R esult Performing Organization Address [facility]/ZIP Co de Phone Number [place] ([place]) 1 [facility] [employer] [place] [address] * eGFR (06/08/2024 1:49 AM RUG DYER HELPER) [facility] eGFR 68 >=60 mL/min/1. 73 m2 Comment: [...] last reviewed 2021. Blood 06/08/2024 1:49 AM RUG DYER HELPER 06/08/2024 1:51 AM RUG DYER HELPER Roddy Brown MD LAB BLOOD ORDERABLES Final R esult [place]) 1 [facility] Department [place] [address] * Osmolality, blood (06/08/2024 1:49 AM RUG DYER HELPER) Osmo 290 275 - 300 mOsm/kg Comment:Testing performed by : [facility], [address] [facility], [place] [address] Blood 06/08/2024 1:49 AM RUG DYER HELPER 06/08/2024 10:09 AM RUG DYER HELPER us Heike Childs MD LAB BLOOD ORDERABLES Final Res ult [facility] ([place] 1 [facility] [place] [address] * (ABNORMAL) Basic metabolic panel (06/08/2024 1:49 AM RUG DYER HELPER) Sodium 129(L) 135 - 145 mmol/L Potassium, pl 4.7 3.3 - 4.9 mmol/L [facility] ([place]) Chloride 98 97 - 110 mmol/L [facility] ([place]) CO2 10(L) 22 - 32 mmol/L [facility] ([place]) Anion gap 21(H) 2 - 15 mmol/L [facility] ([place]) BUN 13 6 - 25 mg/dL [facility] ([place]) Creatinine 1.13(H) 0.60 - 1.10 mg/dL [facility] ([place]) Glucose 102 70 - 199 mg/dL [facility] ([place]) [...] 2022. Calcium 8.8 8.5 - 10.3 mg/dL [facility] ([place]) Blood 06/08/2024 1:49 AM RUG DYER HELPER 06/08/2024 1:51 AM RUG DYER HELPER us Roddy Brown MD LAB BLOOD ORDERABLES Final R esult [place] [facility] [place] 6 [facility] Department [place] [address] * CT Chest PE (CTA) Abdomen Pelvis W Contrast (06/08/2024 1:44 AM RUG DYER HELPER) Anatomical Region Laterality Modality Body N/A Computed Tomogra phy 06/08/2024 2:01 AM RUG DYER HELPER Narrative 06/08/2024 2:07 AM RUG DYER HELPER EXAM DESCRIPTION: CT CHEST PE (CTA) ABDOMEN [...] AM T: ??06/08/2024 2:07 AM Report ID: [id number] Reading Location: ??[id number] Procedure Note Tristian Becerra MD - 06/08/2024 [...] Becerra M.D. KH: JOSE L Report ID: [id number] Reading Location: [place] [address] Jacquelin Joshi MD IMG CT PROCEDURES F inal Result * POCT hCG, urine (06/08/2024 1:11 AM RUG DYER HELPER) HCG, ur, POC Negative Negative Lot Number [id number] QC Backgroud Clear Acceptable QC Control Line Acceptable Urine 06/08/2024 1:11 AM RUG DYER HELPER Jacquelin Joshi MD POINT OF CARE TEST ORDERABLES Final Result * (ABNORMAL) Urinalysis reflex to microscopic and culture Urine (06/08/2024 12:39 AM RUG DYER HELPER) Color, ur Yellow Yellow Clarity, ur Turbid(A) [...] tendency for uric acid stone formation. Source: [facility] [employer] Current Interpretive Data was last revised on [...] Reflex to microscopic UA will be performed. [facility] (ABDOUL) Urine 06/08/2024 12:3 9 AM RUG DYER HELPER 06/08/2024 12:49 AM RUG DYER HELPER us Brian Shields NP LAB MICROBIOLOGY - GENERAL ORDERABLES Final Result [facility] ([facility] 1 [facility] Department [place] [address] * (ABNORMAL) Urinalysis, microscopic only (06/08/2024 12:39 AM RUG DYER HELPER) WBC, ur 0-5 0 - 5 /HPF RBC, ur 3-5(A) 0 - 2 /HPF [facility] ([place]) Epithelial cells, squamous, ur 1-5 0 - 5 /HPF [facility] ([place]) Bacteria, ur 1+(A) [facility] ([place]) Mucous, ur Present(A) [facility] ([place]) Hyaline casts, ur >50(A) 0 - 10 /LPF [facility] ([place]) Culture Reflex Comment Reflex conditions for urine culture (WBC >10) not met. [facility] [facility] (RUBY) Urine 06/08/2024 12:3 9 AM RUG DYER HELPER 06/08/2024 12:49 AM RUG DYER HELPER us Brian Shields STILL CLEANER LAB URINE ORDERABLES Final Result Performing Organization Address [facility]/ZIP Co de Phone Number [place] (RUBY) 1 [facility] [place] [address] * Sepsis Lactate w/ Reflex (06/07/2024 11:00 PM RUG DYER HELPER) Pathologist [facility] Sepsis Lactate 1.7 0.7 - 2.0 mmol/L Blood 06/07/2024 11:0 0 PM RUG DYER HELPER 06/07/2024 11:11 PM RUG DYER HELPER us Jacquelin Joshi MD LAB BLOOD ORDERABLE S Final Result Performing Organization Address [facility] Co de Phone Number [place] [facility] (RUBY) 1 [facility] [employer] [place] [address] * eGFR (06/07/2024 11:00 PM RUG DYER HELPER) eGFR 60 >=60 mL/min/1. 73 m2 Comment: [...] reviewed 2021. Blood 06/07/2024 11:0 0 PM RUG DYER HELPER 06/07/2024 11:11 PM RUG DYER HELPER us Brian Shields NP LAB BLOOD ORDERABLES Final Result [facility] ([place]) 1 [facility] Department [place] [address] * (ABNORMAL) Differential, auto (06/07/2024 11:00 PM RUG DYER HELPER) Neutrophil abs 8.0(H) 1.5 - 6.5 K/cumm [...] on 2017. Blood 06/07/2024 11:0 0 PM RUG DYER HELPER 06/07/2024 11:11 PM RUG DYER HELPER us Brian Shields STILL CLEANER LAB BLOOD ORDERABLES Final Result [facility] (RUBY) 1 [facility] Department [place] [address] * (ABNORMAL) CBC with auto differential (06/07/2024 11:00 PM RUG DYER HELPER) WBC 9.9 3.8 - 9.9 K/cumm Hgb [...] (ABDOUL) MCHC 31.5(L) 32.3 - 35.7 g/dL [place] [facility] ([place]OUL) RDW CV 17.5(H) 11.1 - 14.9 % [place] [facility] ([place]OUL) RDW SD 43.4 35.7 - 48.1 fL [place] [facility] ([place]L) NRBC abs 0.00 0.00 - 0.01 K/cumm [place] [facility] ([place]) Blood 06/07/2024 11:0 0 PM RUG DYER HELPER 06/07/2024 11:11 PM RUG DYER HELPER Brian Shields NP LAB BLOOD ORDERABLES Final Result [place] [facility] (RUBY) 1 [facility] [place] [place] [address] * Protime-INR (06/07/2024 11:00 PM RUG DYER HELPER) PT 10.8 9.7 - 13.0 sec [place] [facility] ([place]L) INR 1.00 0.90 - 1.20 [place] [facility] (ABDOUL) Comment: Interpretive data Oral anticoagulant therapeutic ranges: Venous thromboembolism prophylaxis or treatment: 2.0-3.0 CARDIOLOGY Standard range: 2.0-3.0 High-intensity range: 2.5-3.5 Refer to indication-specific guidelines for appropriate target ranges for prosthetic heart valve replacement. Current interpretive data was last revised on 2019. Blood 06/07/2024 11:0 0 PM RUG DYER HELPER 06/07/2024 11:11 PM RUG DYER HELPER Jacquelin Joshi MD LAB BLOOD ORDERABLE S Final Result [facility] [facility] ([place]BY) 1 [facility] [place] [address] * Lipase (06/07/2024 11:00 PM RUG DYER HELPER) Lipase 67 10 - 99 Units/L Blood 06/07/2024 11:0 0 PM RUG DYER HELPER 06/07/2024 11:11 PM RUG DYER HELPER us Jacquelin Joshi MD LAB BLOOD ORDERABLE S Final Result Performing Organization Address City/[facility]/ZIP Co de Phone Number [place] ([place]OUL) 1 [facility] [place] [address] * Ethanol (06/07/2024 11:00 PM RUG DYER HELPER) [facility] Ethanol <10 <=10 mg/dL Comment: Interpretive Data Legal limit of intoxication > or = 80 mg/dL Levels > or = 400 mg/dL are potentially TOXIC. Current interpretive data was last revised on 2018. Blood 06/07/2024 11:0 0 PM RUG DYER HELPER 06/07/2024 11:11 PM RUG DYER HELPER us Brian Shields NP LAB BLOOD ORDERABLES Final Result Performing Organization Address [facility] Co de Phone Number [place] [facility] ([place]) 1 [facility] [place] [address] * (ABNORMAL) Comprehensive metabolic panel (06/07/2024 11:00 PM RUG DYER HELPER) [facility] Sodium 131(L) 135 - 145 mmol/L Potassium, pl 5.3(H) 3.3 - 4.9 mmol/L [facility] ([place]) Chloride 97 97 - 110 mmol/L [facility] ([facility]) CO2 7(L) 22 - 32 mmol/L [facility] Anion gap 27(H) 2 - 15 mmol/L [facility] ([place]) BUN 14 6 - 25 mg/dL [facility] ([place]) Creatinine 1.26(H) 0.60 - 1.10 mg/dL [facility] ([place]) Glucose 101 70 - 199 mg/dL [facility] (ABDOUL) Comment: Interpretive Data Fasting glucose >/= [...] Hemolyzed Specimen Blood 06/07/2024 11:0 0 PM RUG DYER HELPER 06/07/2024 11:11 PM RUG DYER HELPER Brian Shields NP LAB BLOOD ORDERABLES Final Result Performing Organization Address City/[facility] Co de Phone Number [place] ([place]) 1 [facility] Department [place] [address] * ECG 12 lead (06/07/2024 5:06 PM RUG DYER HELPER) 06/07/2024 5:06 PM RUG DYER HELPER Narrative [facility] - 06/08/2024 8:39 AM RUG DYER HELPER Vent Rate: 112 bpm RR Interval: 535 msec MD Interval: 120 msec QRS Duration: 72 msec QT Interval: 332 msec QTC Interval: 398 msec P-R-T Ferney: 75 - 72 - 61 degrees IMPRESSION: SINUS TACHYCARDIA NONSPECIFIC T-WAVE ABNORMALITY ABNORMAL RHYTHM ECG NO CHANGE FROM PREVIOUS TRACING NOTED Electronically Signed By: Laureano Beard MD Brian Shields NP ECG ORDERABLES Final Resul t Performing Organization Address City/State/[facility] Co de Phone Number [facility] * SCAN - RADIOLOGY/IMAGING (06/06/2024) Anatomical Region Laterality Modality Other us Morgan Turner MD Final Res ult from Last 3 Months Insurance [facility] Advance Directives For more information, please contact: [phone] * Full Code (Latest Code Status on File) Date Activated Date Inactivated Comments 06/09/2024 9:37 AM 06/09/2024 7:14 PM * Full Code Date Activated Date Inactivated Comments 06/08/2024 3:33 AM 06/09/2024 9:37 AM * Full Code Date Activated Date Inactivated Comments 01/11/2024 7:42 AM 01/13/2024 6:46 PM Care Teams Sales Market Leader Relationship Specialty Start Date End Date Morgan Turner MD [address] [place] [address] PCP - General Family Medicine 01/18/24 Ashish Morrow MD [address] [place] [address] [place] [address] Consulting Physician Gastroenterology 06/09/24 Loida Aburto, CLEAN UP PERSON [address] [place] [address] [place] [id number] Storm Door Maker 07/25/24
[2024-08-04] MEDS: EPINEPHrine HCL INJ 1 MG/ML AMPUL 0.3 MG IM (09:00)
[2024-08-04] MEDS: diphenhydrAMINE HCl CAP 25 MG CAPSULE 50 MG PO (09:01)
[2024-08-04] MEDS: predniSONE 20 MG TABLET 60 MG PO (09:01)
[2024-08-04 09:07] VITALS: BP 106/63; PULSE 100; RESP 20; O2SAT 100
[2024-08-04] MEDS: EPINEPHrine HCL INJ 1 MG/ML AMPUL 0.5 MG IM (09:31)
[2024-08-04 09:40] VITALS: BP 102/64; PULSE 99; RESP 20; O2SAT 100
== END 2024-08-04 09:45 | disposition home or self-care (01) ==
PROVIDERS: Emergency Provider Emergency Medicine; PCP Hospitalist
DX: L50.9 Urticaria, unspecified (principal); T50.7X5A Adverse effect of analeptics and opioid receptor antagonists, initial encounter; F10.20 Alcohol dependence, uncomplicated; F17.290 Nicotine dependence, other tobacco product, uncomplicated
CPT/HCPCS: 96372; 99284; A9270; J0171; J7512

== ENCOUNTER 2024-08-30 18:55 | Emergency (ER) | payer OTHER, SELFPAY ==
[2024-08-30 19:08] VITALS: BP 118/68; PULSE 77; RESP 18; TEMP 36.6; O2SAT 100
--- NOTE | 2024-08-30 19:11 | ED.ALCOHOL ---
HPI - Alcohol General Chief Complaint: Alcohol Stated Complaint: ETOH+, ANXIETY, UNCOOPERATIVE WITH EMS Time Seen by Provider: 08/30/24 19:01 History of Present Illness HPI narrative: Patient is a 29-year-old female who in complaining of ?alcohol withdrawal. She endorses right thumb pain and reports she ?dislocated it. Patient also endorses right shoulder pain. Patient reports she has been drinking alcohol ?since Tuesday. She received her Vivitrol shot this morning and denies alcohol use since then. Patient reports her last drink was at 8:00 a.m. this morning. She denies any nausea or vomiting, but endorses withdrawal symptoms. Patient denies any other medical history related to this ER visit. She reports she is currently receiving treatment for alcohol abuse. Patient denies any chest pain, shortness of breath, back pain, urinary symptoms. Related Data Allergies Allergy/AdvReac Type Severity Reaction Status Date / Time No Known Allergies Allergy Verified 08/04/24 06:58 Review of Systems Review of Systems: All systems reviewed & are unremarkable except as noted in HPI and below PMFSH Past Medical History Medical History Alcohol abuse PTSD (post-traumatic stress disorder) Alcoholism Social History Social History Smoking status: Current every day smoker Tobacco type: e-cigarettes/vaping Alcohol intake: current Drinks per week: 30 Substance use: current Substance use type: marijuana Do You Feel Safe in your Home?: Yes Lack of Transportation: No Lack of Food: Never True Current Housing: I Have Housing Concerned About Future Housing: No Difficulty Paying Gas/Electric Bills: No Difficulty Paying for Meds: No Currently Unemployed: No Education: High School Diploma/GED Difficulty w/ Childcare or Family Care: No Living arrangements: alone Occupation/Education: unemployed Sexual Orientation (if Verbalized by the Patient): Lesbian, Gordon, or Homosexual Spiritual care concerns: No Exam Narrative: GENERAL: Well appearing, well-nourished, non-toxic, in mild distress. HEAD: Normocephalic, atraumatic. NECK: Supple. No adenopathy, no masses. RESPIRATORY: Airway patent, respirations nonlabored. Clear to auscultation bilaterally, no rales, rhonchi, wheezing. CARDIOVASCULAR: Regular rate and rhythm without murmurs, rubs, or gallops. Peripheral pulses 2+ and equal bilaterally. ABDOMINAL: Soft, nontender, nondistended, no hepatosplenomegaly. Normoactive BS. MUSCULOSKELETAL: Moves all extremities. Strength/ROM intact without gross deformities. SKIN: Warm, dry, normal color. No rashes. NEURO: A&O X3. Speech clear. Upper extremity tremors upon time of exam. PSYCHIATRIC: Appropriate mood and affect. Normal interaction. Course Vital Signs Vital signs: Vital Signs Temperature 36.6 C 08/30/24 19:08 Pulse Rate 77 08/30/24 19:08 Respiratory Rate 18 08/30/24 19:08 Blood Pressure 118/68 08/30/24 19:08 Pulse Oximetry 100 08/30/24 19:08 Oxygen Delivery Room Air 08/30/24 19:08 Temperature 36.6 C 08/30/24 19:08 Pulse Rate 90 08/30/24 20:46 Respiratory Rate 15 08/30/24 20:46 Blood Pressure 104/62 08/30/24 20:46 Pulse Oximetry 100 08/30/24 20:46 Oxygen Delivery Room Air 08/30/24 19:08 MDM - Alcohol MDM Narrative Medical decision making narrative: Patient is a 29-year-old female who in complaining of ?alcohol withdrawal. She endorses right thumb pain and reports she ?dislocated it. Patient also endorses left shoulder pain. Patient reports she has been drinking alcohol ?since Tuesday. She received her Vivitrol shot this morning and denies alcohol use since then. Patient reports her last drink was at 8:00 a.m. this morning. She denies any nausea or vomiting, but endorses withdrawal symptoms. Patient denies any other medical history related to this ER visit. She reports she is currently receiving treatment for alcohol abuse. Patient denies any chest pain, shortness of breath, back pain, urinary symptoms. Labs Ordered: UA Imaging Ordered: Left shoulder x-ray, right hand x-ray Medications Ordered: Ativan 0.5 mg IM, Zofran 4 mg ODT Results: Patient's x-rays were negative for any acute abnormalities. Diagnosis: Alcohol abuse, reaction to medication Patient Education/Shared MDM: Results shared with patient. She endorses significant improvement of symptoms following medication administration. Patient strongly advised to maintain hydration status upon discharge and follow-up with her PCP. She will be discharged home with prescription for Zofran ODT. Strict return precautions provided. Patient verbalized understanding is in agreement with plan. Vital signs stable at time of discharge. All questions answered. Differential Diagnosis Differential diagnosis: Likely alcohol withdrawal delirium, alcohol withdrawal syndrome, alcohol withdrawal seizure and other (L shoulder strain, R hand x-ray, agitation) Lab Data Attestation: I reviewed the patient's lab results. Labs: Lab Results 08/30/24 Range/Units 19:48 Urine Color Yellow (Yellow) Urine Appearance Clear (Clear) Urine pH 5.5 (5.0-9.0) Ur Specific [place] 1.016 (1.001-1.035) Urine Protein Negative (Negative) mg/dL Urine Glucose (UA) Negative (Negative) mg/dL Urine Ketones 1+ H (Negative) mg/dL Ur Blood (Man) 3+ H (Negative) Urine Nitrate Negative (Negative) Urine Bilirubin Negative (Negative) Urine Urobilinogen 0.2 (<2.0) mg/dL Leukocyte Esterase Rfl Negative (Negative) CARISSA/UL Urine RBC 11-20 H (0-2) /hpf Urine WBC 0-5 (0-3) /hpf Ur Squamous Epith Cells Occasional (Few) /hpf Urine Bacteria None seen /hpf Urine Casts 0-2 Imaging Data Attestation: I personally reviewed and interpreted this imaging study as follows: Radiologist's impression: ITS Impressions Hand X-Ray 08/30/24 20:24 IMPRESSION: No acute osseous abnormality right hand. Shoulder X-Ray 08/30/24 20:25 IMPRESSION: No acute osseous abnormality left shoulder. Discharge Plan Discharge Clinical Impression: Medication reaction, Agitation Alcohol withdrawal Qualifiers: Complication of substance-induced condition: uncomplicated Qualified Code(s): F10.930 - Alcohol use, unspecified with withdrawal, uncomplicated Patient Disposition: Home, Self-Care Condition: Stable Instructions: Antibiotic Form, Abuse of Alcohol (ED), Alcohol Withdrawal (ED) Additional Instructions: Please return to the ER with an worsening symptoms. Follow-up with primary care provider in the next 2-3 days. Take all medications as prescribed. Patient Language: Bengali Prescriptions: New ondansetron 4 mg tablet,disintegrating 4 mg PO Q6H PRN (Reason: nausea and vomiting) Qty: 10 0RF No Action thiamine HCl (vitamin B1) 100 mg tablet 100 mg PO DAILY Qty: 30 0RF folic acid 1 mg tablet 1 mg PO DAILY Qty: 30 0RF chlordiazepoxide HCl 25 mg capsule 25 mg PO BID PRN (Reason: alcohol withdrawal) Qty: 30 0RF ondansetron 4 mg tablet,disintegrating 4 mg PO Q8H Qty: 20 0RF pantoprazole 40 mg tablet,delayed release (DR/EC) 40 mg PO HS Qty: 30 0RF chlordiazepoxide HCl 25 mg capsule 25 mg PO Q6H Qty: 15 0RF Rx Instructions: Day 1: take 2 caps every 6 hours, Day 2: take 1 cap every 6 hours, Day 3: take 1 cap every 12 hours, Day 4: take 1 cap at night, then discontinue prednisone 20 mg tablet 40 mg PO DAILY 5 Days Qty: 10 0RF Zyrtec 10 mg capsule 10 mg PO BID PRN (Reason: allergy symptoms) Qty: 20 0RF Follow-up/Referrals: Johnny,MD Morgan [Primary Care Provider] - Time of Disposition: 20:54
[2024-08-30] MEDS: LORazepam INJ (*CRX) 2 MG/ML VIAL 0.5 MG IM (19:52)
[2024-08-30 19:58] LABS: Add Urine Microscopic? YES; Appearance Urine Clear (Clear); Bacteria Urine None Seen /hpf; Bilirubin Urine Negative (Negative); Blood Urine 3+ (Negative); Color Urine Yellow (Yellow); Glucose Urine UA Negative (Negative); Ketones Urine 1+ mg/dL (Negative); Leukocyte Esterase Ur Negative LEU/UL (Negative); Nitrate Urine Negative (Negative); Non Pathogenic Casts 0-2; Protein Urine Negative (Negative); Specific Grav Ur 1.016 (1.001-1.035); Squamous Epithelial Cell Urine Occasional /hpf (Few); Urobilinogen Urine 0.2 mg/dL (<2.0); WBC Urine 0-5 /hpf (0-3); pH Urine 5.5 (5.0-9.0)
[2024-08-30 20:46] VITALS: BP 104/62; PULSE 90; RESP 15; O2SAT 100
[2024-08-30] MEDS: ONDANSETRON HCL ODT 4 MG TABLET PO (20:46)
[2024-08-30 21:07] VITALS: BP 108/56; PULSE 81; RESP 15; O2SAT 100
== END 2024-08-30 21:08 | disposition home or self-care (01) ==
PROVIDERS: Emergency Provider Registered Nurse; PCP Hospitalist
DX: T50.7X1A Poisoning by analeptics and opioid receptor antagonists, accidental (unintentional), initial encounter (principal); T51.0X1A Toxic effect of ethanol, accidental (unintentional), initial encounter; F10.239 Alcohol dependence with withdrawal, unspecified; R45.1 Restlessness and agitation; M79.644 Pain in right finger(s); M25.512 Pain in left shoulder; F17.290 Nicotine dependence, other tobacco product, uncomplicated; Y90.9 Presence of alcohol in blood, level not specified
CPT/HCPCS: 73030; 73130; 81001; 96372; 99284; A9270; J2060

== ENCOUNTER 2025-01-14 04:18 | Observation (INO) | payer OTHER, SELFPAY ==
[2025-01-14] VITALS (13 sets, daily range): BP systolic 105–112; BP diastolic 60–86; PULSE 77–99; RESP 13–25; TEMP 36.9; O2SAT 97–100; BMI 22.6
[2025-01-14] MEDS: LORazepam INJ (*CRX) 2 MG/ML VIAL IV PUSH (04:39)
[2025-01-14] MEDS: SODIUM CHLORIDE 0.9% IV 1,000 ML 999 ML IV CONT (04:39)
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
--- OUTSIDE RECORDS SUMMARY | 2025-01-14 04:40 | XMS_ITS | Encounter Summary ---
Author Name [facility] Organization [facility] Address [address] [place] [address] Support Name Relationship Address Phone JALYN, KING Next of Kin [address] [place] [address] KING GUNDERSON Emergency Contact [address] [place] [address] PRATIK DOSS Next of Kin [address] [place], [place] [id number] PRATIK DOSS Emergency Contact [address] [place], [place] [id number] Selected Encounter This section includes the information on record at [place] for the Encounter. Date/Time Encounter Type Encounter Description Reason Provider Source Mar 09, 2024 08:00 AM CASE MANAGEMENT HUD/VASH INDIV ICD-10-CM Z59.89 Other problems related to housing and economic circumstances AZIZA LARA Melinda Encounter Template Text not used by [place] Assessments - Encounter Diagnoses This section includes the primary and secondary diagnoses documented for the Encounter. Date/Time Primary/Secondary Diagnosis Diagnosis Name Provider Source Mar 09, 2024 10:39 AM PRIMARY Other problems related to housing and economic circumstances AZIZA LARA [facility] Plan of Treatment: Future Appointments (+ 6 months) and Future Tests (+/- 45 days) The Plan of Treatment section includes future care activities for the patient from all [place] treatmentfacilities. This section includes future appointments and future orders which are active, pending or scheduled. Future Appointments This section includes appointments that were scheduled to occur 6 months from the date of the Encounter, up to a maximum of 20 appointments. The data comes from all [place] treatment facilities. Appointment Date/Time Appointment Type Appointme nt Facility Name Mar 22, 2024 03:00 PM AMBULATORY - [facility] May 04, 2024 11:00 AM [facility] Jun 29, 2024 03:00 PM [facility] Aug 24, 2024 02:30 PM [facility] Encounter Notes: All associated encounter notes This section contains the clinical notes associated to the Encounter. Date/Time Encounter Note(s) Provider Source Mar 09, 2024 08:00 AM MENTAL HEALTH NOTE : LOCAL TITLE: HUD/VASH STL STANDARD TITLE: MENTAL HEALTH NOTE DATE OF NOTE: MAR 09, 2024@08:00 ENTRY DATE: MAR 09, 2024@08:48:51 AUTHOR: AZIZA LARA COSIGNER: URGENCY: STATUS: COMPLETED HUD/VASH STL Has [facility] Case Management Visit Date: Name: James Cooley : 95 Start time: End Time: Diagnosis: economic Location: Telehealth Visit The [place] was educated about the use of Clinical Video Telehealth for this encounter. The consents to be seen today via video technology. The [place] is aware that he/she is responsible for any charges for connectivity or data usage. The is aware of limits of confidentiality and understands that if there are concerns about safety, local authorities will be contacted for a wellness check. The following safety information was obtained at the start of the session: Patient's address during session confirmed: [address] [place] [id number] Patient's telephone number (cellular and/or landline): [phone] Local emergency number for patient's address or e911 available: Names of other individuals present in the home/outside contact lens blocker and cutter: Contact information for above: [x] The provided/confirmed the above information and verbally consented to care via clinical video telehealth. APPEARANCE: appropriate SPEECH: normal MOOD: good AFFECT: broad THOUGHT PROCESS: goal oriented DELUSIONS/HALLUCINATIONS: denied SUICIDAL/AGGRESSIVE/HOMICIDA L: denied LEVEL OF ALERTNESS: x4 ORIENTATION:x4 Narrative: KEN and luis manuel met for [facility]. Jeanet reports she is doing well KEN and luis manuel completed [facility] annual review. Vet reports she still would like to continue to participate in [facility]. KEN and luis manuel discussed new goals for S. Luis Manuel reports she is still getting the vivitrol shot for alcohol abuse. Luis Manuel reported the first shot was kind of weird and it took her two weeks to adjust to the medicine. Luis Manuel reports now no side effects and she is used to it. Jeanet reports she still plans on drinking. KEN and luis manuel discussed the dangers of drinking while on vivtrol and the sickness she may get while drinking on it. Luis Manuel reports her dad wants to take her camping, and that they both plan on drinking. Luis Manuel reported she told her doctor this, and although she plans on still using it, she wants to take a break from it so she can drink. KEN encouraged luis manuel to do more research and work with her medical team, before trying to drink while on the medication. KEN inquired how luis manuel's unit has been going. During when luis manuel was drinking heavily, there was heavy police presence, fights with neighbors and complaints from the PM. Jeanet reports things have calmed down. Jeanet reports she is still fighting with one neighbor, Jie, but trys to avoid her. Luis Manuel reported the other night at 11:45pm, she was taking her dogs out, and an upstairs neighbor confronted her, stating that Jie told them that the vet was saying rumors. Vet reports she stayed calm, talked it out with the neighbor and all is well. KEN praised luis manuel for staying calm, and not getting into an altercation with neighbor. Luis Manuel reports that Jie calls her racist names, and spreads gossip about her. KEN and luis manuel discussed moving. This magazine writer has been working with a PM in [place] that has a single bedroom house, that is a little secluded, that might work well for , her animals. This magazine writer spoke with the PM, aRn two weeks ago. He is working with the family of the former tenant to move items out, and then he has to rehab the unit. Ran did not give an ETA on when the house will be ready. KEN also spoke with luis manuel's current landlord, but got the impression current LL will not release luis manuel from current lease. With luis manuel not having inocme, it will be very hard on her to buy her out of the lease. Luis Manuel and ken agreed to see in the next couple of weeks of progress. Vet reported she will stay at current unit if she has to, ken advised that might mean losing out on the house, as most PP won't hold a unit, as they won't be getting paid while it sits empty. Treatment Plan Goals/Objectives Addressed in Meeting Goal/Objective 1: I want to maintain my unit Progress: Goal/Objective 2: Progress: SAFETY REVIEW The following health and safety issues were reviewed during session: Luis Manuel reports that she continues to get the vivitrol shot for RAUL, no horrible side effects Health: I will manage these concerns by (check all that apply): [] Using adaptive equipment []Taking medications as prescribed [x] Attending scheduled medical appointments [] Behavioral Health: N/a Patient Record Flagged: n/A [place] will manage these concerns by: [] Following medical/mental health providers recommendations [x] Taking medications as prescribed [] Continuing or beginning SA treatment or support groups [] Meeting regularly with my case management rn []Following my Suicide Safety plan (reviewed with CM) [] x is aware that (s)he can contact the 's Crisis hotline 24 hours per day at , press 1 for Veterans. Personal Safety: Luis Manuel reports things have calmed down at her unit, although there is still some drama luis manuel reports she does not fear for her safety. I will manage these risks by: [x]Discuss safety precautions with my case management rn, as needed. [] Keep a first aid kit and fire extinguisher in my home. []Keep a list of emergency contacts (gas, electric, mental health) in an accessible location. [] I am aware that if I have a life threatening emergency, I should call 911 and go to the nearest emergency department. Plan: Luis Manuel will reach out to her PM to see if she can get out of her lease Patient Education Documentation: [x] The patient was ready to learn when education was offered. [] Level of Understanding: [x] Patient verbally acknowledged understanding of the education topic. /TUTU Medina Signed: 03/09/2024 10:39 03/09/2024 ADDENDUM STATUS: COMPLETED Please note, visit date was 03/09/24 from 8am-9:00am /TUTU Medina Signed: 03/09/2024 10:50 AZIZA LARA [facility] Mar 09, 2024 08:00 AM MENTAL HEALTH NOTE : LOCAL TITLE: [facility] STANDARD TITLE: MENTAL HEALTH NOTE DATE OF NOTE: MAR 09, 2024@08:00 ENTRY DATE: MAR 09, 2024@10:41:54 AUTHOR: AZIZA LARA EXP COSIGNER: URGENCY: STATUS: COMPLETED HOPE Programs [facility] Supportive Housing: Annual Review Visit Date: 03/09/24 [place] Name: James Doss Start Time: 8am End Time: 9am Diagnosis: economic Location: Telehealth Visit The was educated about the use of Clinical Video Telehealth for this encounter. The [place] consents to be seen today via video technology. The [place] is aware that he/she is responsible for any charges for connectivity or data usage. The is aware of limits of confidentiality and understands that if there are concerns about safety, local authorities will be contacted for a wellness check. The following safety information was obtained at the start of the session: Patient's address during session confirmed: [address] Patient's telephone number (cellular and/or landline): [phone] Local emergency number for patient's address or e911 available: Names of other individuals present in the home/outside contact lens blocker and cutter: Contact information for above: [x] The provided/confirmed the above information and verbally consented to care via clinical video telehealth. Presentation: APPEARANCE: Appropriate for situation SPEECH: normal MOOD: appropriate for situation AFFECT: broad THOUGHT PROCESS: goal oriented DELUSIONS/HALLUCINATIONS: denied SUICIDAL/AGGRESSIVE/HOMICIDA L: denied LEVEL OF ALERTNESS: x4 ORIENTATION: x4 Program Admission Date: 01/10/23 Services Provided by TUTU BASSETT/DIANNA Programs: [x]Case Management []Peer Support []Vocational Services []Addiction Services []Occupational Therapy []Other: Purpose for visit: [x]Treatment Planning [x]Annual Review of Program Participation []Other: Type of Service: Education /Orientation [place] reviewed: [x] HOPE Programs, including VASH Program [x] Handbook which includes the following: *[facility]OPE [place] and Values/ Program expectations *Patient Rights and Responsibilities *Grievance Process *Discharge Criteria *Case Management participation expectations *Health and Safety Procedures * Feedback *HOPE Contact Numbers * Resource Listings [x] An updated handbook was offered to the . [x] [place] accepts risk and responsibilities associated with supportive housing. [x] Reviewed HUD VAS Program Agreement and agrees to abide by outlined expectations. NAHOMI Updates or Changes [x] HOPE [place] NAHOMI/Specific PHA: [x] Landlord/Property Management: Specifically: Ky Robb [phone] [] Other: [] ROIs sent to scanning for inclusion in the medical record. --PHYSICAL HEALTH AND NUTRITION SCREENING -- Primary Care Provider: { } VA Provider: {x} Non-VA provider: { } No provider Date of last visit with above provider: 03/01/24 If the has no provider or it has been more than 12 months since the last visit, please encourage/assist the [place] with scheduling PCP appointment. Relevant Medical Hx: Alcohol dependence Date of last PPD/TB skin test per CPRS: unknown Have you ever had a positive TB test? no Have you experienced any of the following in the last 3 weeks: [] night sweats [] coughing lasting more than 3 weeks [] coughing up blood [] unexplained weight loss [] hoarseness [] persistent fever [] fatigue [x] denies all of the above Symptoms at this time. Urgent medical needs identified, such as: { } Left sided chest pain with sweating, shortness of breath, or nausea { } Worsening shortness of breath { } Persistent swelling in your feet { } Blood in urine/stool { } Unexplained weight loss { } Coughing up blood { } Other: {x } none reported If yes to any of the above: { } Advised to go to the ED. Outcome: { } Other: Does the report chronic pain? [ ] Yes [x ] No If so, on a scale of one to ten (1 being the least and 10 being the worst) how does the [place] rate pain? Does [place] report that pain is being managed well at this time? [ ] Yes [ ] No Does the [place] want a referral to help manage pain? [a score >4 and not well managed pain=recommendation for a pain assessment and referral to PCP.] { } Yes { } Not at this time Nutrition screening: Does the [place] report any of the following issues: 1. Have you lost or gained 10 pounds or more in the last 3 months without trying? [ ] Yes [x ] No 2. Have you gained 10 pounds or more in the last 2 weeks due to fluid? [ ] Yes [ x] No 3. Has food intake declined due to loss of appetite, digestive problems, dental problems or swallowing difficulty? [ ] Yes [x ] No 4. Food Allergies? [ ] Yes [x ] No If answers yes to any of the nutrition risk screening questions, inform or assist the patient to call [phone], to schedule an appointment with a dietitian or consult Dietetic Services. 5. Eating habits or behaviors that may be indicators of an eating disorder, such as binging or inducing vomiting? [ ] Yes [x ] No If answers yes, enter a Dietetic Services- Dietetics Outpt Disordered eating consult. Goals/Objectives reviewed during session: I want to maintain my unit Narrative: Vet met for VASH annual review. Vet asked appropriate questions and signed all appropriate forms. [x] The has an updated copy of his/her goals and objectives [x] The was offered a copy of his/her goals and objectives SAFETY REVIEW The following health and safety issues were reviewed during session: Continuing RAUL treatment Health: I will manage these concerns by (check all that apply): [] Using adaptive equipment [] Taking medications as prescribed [x] Attending scheduled medical appointments [] Other: Behavioral Health: N/A Patient Record Flagged: N/A will manage these concerns by: [] Following medical/mental health providers recommendations [] Taking medications as prescribed [] Continuing or beginning SA treatment or support groups [x] Meeting regularly with my case management rn [] Following my Suicide Safety plan (reviewed with CM) [] OTHER: [x] is aware that (s)he can contact the [place]'s Crisis hotline 24 hours per day at , press 1 for Veterans. Personal Safety: Luis Manuel reports still drama with neighbors but said things have calmed down, since she has stopped drinking. I will manage these risks by: [x]Discuss safety precautions with my case management rn, as needed. [] Keep a first aid kit and fire extinguisher in my home. [] Keep a list of emergency contacts (gas, electric, mental health) in an accessible location. [x] Does the have access to firearms? [x] No. Reports she gave her firearm away [] Yes If Yes, gun lock offered and safety education provided: [] Yes [] Other: [x] I am aware that if I have a life threatening emergency, I should call 911 and go to the nearest emergency department. Intervention/Plan: [x] Continued participation in [facility] is clinically appropriate. Progress and changes to goals, objectives, and interventions are documented in the treatment plan. [x] Meet with [facility] team as outlined in treatment plan and as needed. [x] [place] reminded of additional resources/services available through the [facility] Programs: * [facility] Addiction Therapist services and relapse prevention groups. * [facility] PEDIATRIC SPEECH THERAPIST services prn * [facility] peer support services prn * Computer lab * Dietetics/nutrition consultation/class * Supported Employment Program * [facility] Classes [] Other: Next visit: [] date/time/location: [x] To be scheduled within one month [] Other: Patient Education Documentation: [x] The patient was ready to learn when education was offered. [] Level of Understanding: [x] Patient verbally acknowledged understanding of the education topic. [] Other: /bernardo/ TUTU Torrez Signed: 03/09/2024 10:49 AZIZA LARA [facility] Mar 09, 2024 08:00 AM ADVANCE DIRECTIVE NOTIFICATION AND SCREENING: [facility] TITLE: ADVANCE DIRECTIVE NOTIFICATION AND SCREENING STANDARD TITLE: ADVANCE DIRECTIVE NOTIFICATION AND SCREENING DATE OF NOTE: MAR 09, 2024@08:00 ENTRY DATE: MAR 09, 2024@10:51:46 AUTHOR: AZIZA LARA EXP COSIGNER: URGENCY: STATUS: COMPLETED ADVANCE DIRECTIVE NOTIFICATION AND SCREENING ADVANCE DIRECTIVE NOTIFICATION: Provided the patient or customer service representative with written notification about advance directives. ADVANCE DIRECTIVE SCREENING: The patient or customer service representative says the patient does not have an advance directive. Inquired if they want more information or assistance in completing a new advance directive form, and directed them to that assistance, if desired. /TUTU Medina Signed: 03/09/2024 10:52 AZIZA LARA [facility]
--- OUTSIDE RECORDS SUMMARY | 2025-01-14 04:40 | XMS_ITS | Clinical Summary ---
Author Organization [facility] Address [address] [place] [id number] Care Team Providers Care Outboard Motor Mechanic Name Role Phone None, Provider MD Primary [...] 67 10/28/2022 11:48 AM CDT Temperature 36.8 C (98.2 F) 10/28/2022 9:10 AM CDT Respiratory Rate 18 10/28/2022 11:48 AM CDT Oxygen Saturation 95% 10/28/2022 11:48 AM CDT Inhaled Oxygen Concentration - - Weight 69.6 kg (153 lb 7 oz) 10/28/2022 9:10 AM CDT Height 175.3 cm (5' 9) 10/28/2022 9:10 AM CDT Body Mass Index 22.66 10/28/2022 9:10 AM CDT Plan of Treatment Health Maintenance Due Date Last Done Comments Cervical Cancer Screening Pap Smear (Age 21 to 29) Every 3 Years 1995 Cervical Cancer Screening 1995 Annual Physical 1998 Hepatitis C 2013 Pneumococcal Vaccine: Pediatrics (0 to 5 Years) and At-Risk Patients (6 to 49 Years) (1 of 2 - PCV) 2014 DTaP, Tdap and Td Vaccines (6 - Td or Tdap) 09/27/2019 09/26/2009, 03/15/2000, 1995, Additional history exists COVID-19 Vaccine (2023- season) 2024 05/27/2021 Hepatitis B Vaccines Completed 1995, 1995, 1995 [...] age to complete this topic Insurance MEDICAID Care Teams Outboard Motor Mechanic Relationship Specialty Start Date End Date None, Provider, PCP - General 03/20/18
--- OUTSIDE RECORDS SUMMARY | 2025-01-14 04:40 | XMS_ITS | Clinical Summary ---
Author Organization [facility] [employer] Address [address] [place] [address] Care Team Providers Care Hall Porter Name Role Phone Unavailable Primary Care Provider Unavailabl e Source Comments [facility],non-owned Affiliates and Associated Physician Practices is amultiple site organization consisting of ambulatory clinics and hospital sitesin [place], [place], [place] and [place]. This disclosure is being madepursuant to the Care Everywhere program and may not contain all information available regarding this patient. Last updated 18.[facility] [employer] [employer] Allergies No known active allergies Medications * This document contains information received from the source organization and may not represent a complete record from that organization. * Be aware that medications may not be up to date on this document. Alwaysverify current medications with the patient. No known medications Active Problems Problem Noted Date Diagnosed Date Alcoholic ketoacidosis 02/23/2023 Tobacco abuse 02/23/2023 Hypoglycemia 02/23/2023 Alcoholic intoxication without complication 02/02 Acute pancreatitis, unspecif ied complication status, unspecified pancreatitis type 10/29/2022 Social History Tobacco Use Types Packs/Day Years Used Date Smoking Tobacco: Every Day Cigarettes 1 18.3 Started: 10/04/2006 Smokeless Tobacco: Never Tobacco Cessation:Ready [...] housing, medical care, and heating? Hard 10/29/2022 [facility] [place] of Occupat ional Health - Occupational Stress [...] place to sleep or slept in a residential (including now)? 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 Gender Identity Not on file Sexual Orientation Not on file Last Filed Vital Signs Vital Sign Reading Time Taken Comments Blood Pressure 138/86 02/23/2023 11:56 AM CDT Pulse 74 02/23/2023 11:56 AM CDT Temperature 36.1 C (97 F) 02/22/2023 6:13 PM CDT Respiratory Rate 18 02/23/2023 11:56 AM CDT Oxygen Saturation 99% 02/23/2023 11:56 AM CDT Inhaled Oxygen Concentration - - Weight 68 kg (150 lb) 02/22/2023 11:34 AM CDT Height 167.6 cm (5' 6) 02/22/2023 11:34 AM CDT Body Mass Index 24.21 02/22/2023 11:34 AM CDT Plan of Treatment Health Maintenance Due Date Last Done Comments HIV SCREENING 2010 HEPATITIS C SCREENING 06/18/2013 DTAP/TDAP/TD VACCINES (1 - Tdap) 2014 HEPATITIS B VACCINE (1 of 3 - 19+ 3-dose series) 2014 PNEUMOCOCCAL VACCINE (1 of 2 - PCV) 2014 PAP SMEAR 2016 HPV VACCINE (1 - 3-dose SCDM series) 2022 COVID-19 VACCINE (2 - season) 2024 05/27/2021 DEPRESSION SCREENING 07/04/2024 INFLUENZA VACCINE (#1) 2025 , 04/21/2019, 03/16/2019, Additional history exists ZOSTER VACCINE (1 of 2) 2045 HIB VACCINE Aged Out No longer eligi ble based on patient's age to complete this topic MENINGOCOCCAL (Group B) VACCINE SHARED DECISION-MAKING Aged Out No longer eligible based on patient's age to complete this topic MENINGOCOCCAL GROUPS A/C/Y/W VACCINE Aged Out No longer eligible based on patient's age to complete this topic Insurance MEDICAID - [place] Advance Directives * Full Code (Latest Code Status on File) Date Activated Date Inactivated Comments 02/23/2023 5:32 AM 02/23/2023 2:00 PM * Full Code Date Activated Date Inactivated Comments 10/29/2022 11:19 AM 11/01/2022 11:54 AM
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
--- OUTSIDE RECORDS SUMMARY | 2025-01-14 04:40 | XMS_ITS | Continuity of Care Document ---
Author Name [facility] Organization [facility] Care Team Providers Care Principal Systems Engineer Name Role Phone [facility] Unavailable Unavailable Problems Combined list of problems from Department of Defense and Veterans Affairs facilities. It does not include entries that were removed or entered in error. Problem Status Onset Date Problem Type Date of Resolution Comments Source Alcohol dependence, uncomplicated Active 8 Condition DoD Sprain of other ligament of right ankle Active 8 Condition [facility] Abnormal urine Active Condition [facility] Alcohol dependence Active Condition [facility] Chronic post-traumatic stress disorder Active Condition [facility] Housing instability Active Condition [facility] Mild bipolar disorder Active Condition [facility] Nicotine dependence Active Condition [facility] Posttraumatic stress disorder Active Condition [facility] Unsheltered homelessness Active Condition [facility] Diagnosis: ICD-10-CM F43.10 Post-traumatic stress disorder, unspecified Active Diagnosis [facility] Diagnosis: ICD-10-CM F10.220 Alcohol dependence with intoxication, uncomplicated Active Diagnosis [facility] Diagnosis: ICD-10-CM F10.20 Alcohol dependence, uncomplicated Active Diagnosis [facility] Diagnosis: ICD-10-CM Z59.89 Other problems related to housing and economic circumstances Active Diagnosis [facility] Diagnosis: ICD-10-CM Z78.9 Other specified health status Active Diagnosis [facility] Diagnosis: ICD-10-CM F43.12 Post-traumatic stress disorder, chronic Active Diagnosis [facility] Diagnosis: ICD-10-CM F10.239 Alcohol dependence with withdrawal, unspecified Active Diagnosis [facility] Diagnosis: ICD-10-CM F31.81 Bipolar II disorder Active Diagnosis [facility] Admit Reason: ALCOHOL DETOXIFICATION Active Diagnosis [facility] Diagnosis: ICD-10-CM Z71.89 Other specified counseling Active Diagnosis [facility] Diagnosis: ICD-10-CM Z59.9 Problem related to housing and economic circumstances, unsp Active Diagnosis [facility] Diagnosis: ICD-10-CM Z59.02 Unsheltered homelessness Active Diagnosis [facility] Diagnosis: ICD-10-CM F31.89 Other bipolar disorder Active Diagnosis [facility] Diagnosis: ICD-10-CM R45.851 Suicidal ideations Active Diagnosis [facility] Medications Combined list of outpatient medications from Department of Defense and Veterans Affairs facilities.Medications provided include 1) outpatient medications from the last 15 months, and 2) patient-reported medications. Medication Details Route Status Patient Instructions Prescription Expires Prescription Number Last Dispense Date Ordering Provider Order Date Order Qty Source chlordiazeP OXIDE (U/D) 25 MG ORAL CAP TAKE ONE CAPSULE BY MOUTH TWICE A DAY FOR 2 DAYS, THEN TAKE ONE CAPSULE ONCE A DAY FOR 1 DAY FOR ASSISTAN CE WITH DEPENDEN CY 01/23/2024 [id number] THA CHASE S 2023 5 [facility] CHLORDIAZEP OXIDE HCL 25MG CAP TAKE ONE CAPSULE BY MOUTH TWICE A DAY FOR 2 DAYS, THEN TAKE ONE CAPSULE ONCE A DAY FOR 1 DAY FOR ASSISTAN CE WITH DEPENDEN CY ORAL 01/23/2024 [id number] 4 BRIGIDO CHASE S 2023 5 [facility] HYDROXYZINE HCL 50MG TAB TAKE ONE TABLET BY MOUTH THREE TIMES A DAY NEEDED FOR ANXIETY *MAY CAUSE DROWSINE SS* ORAL ACTIVE 06/30/2025 [id number] 5 Dick RAO 2024 270 [facility] HYDROXYZINE HCL 50MG TAB TAKE ONE TABLET BY MOUTH THREE TIMES A DAY NEEDED FOR ANXIETY *MAY CAUSE DROWSINE SS* ORAL DISCONT INUED 02/03/2025 [id number] 4 Dick RAO E 2023 270 [facility] NALTREXONE (EQV-REVIA) 50MG TAB TAKE ONE TABLET BY MOUTH ONCE A DAY FOR ASSISTAN CE WITH DEPENDEN CY ORAL 01/23/2024 [id number] BRIGIDO CHASE S 2023 30 [facility] Naltrexone Hydrochlori de (ReVia Eq.) Tablet 50 mg Oral TAKE ONE TABLET BY MOUTH ONCE A DAY FOR ASSISTAN CE WITH DEPENDEN CY 01/23/2024 [id number] 4 THA CHASE S 2023 30 [facility] Quetiapine (Seroquel Starter Pack) Tablet 25mg Oral TAKE ONE TABLET BY MOUTH AT BEDTIME 12/14/2024 [id number] NITISH RAO E 2023 30 [facility] Quetiapine (Seroquel Starter Pack) Tablet 25mg Oral TAKE ONE TABLET BY MOUTH AT BEDTIME FOR SLEEP AND ANGER Discont inued 11/15/2024 [id number] NITISH RAO E 2023 30 [facility] Quetiapine (Seroquel Starter Pack) Tablet 25mg Oral TAKE ONE TABLET BY MOUTH AT BEDTIME FOR SLEEP AND ANGER 11/15/2024 [id number] NITISH RAO E 2023 30 [facility] QUETIAPINE FUMARATE 25MG TAB TAKE ONE TABLET BY MOUTH AT BEDTIME ORAL DISCONT INUED BY PROVIDE R 12/14/2024 [id number] Dick RAO E 2023 30 [facility] QUETIAPINE FUMARATE 25MG TAB TAKE ONE TABLET BY MOUTH AT BEDTIME FOR SLEEP AND ANGER ORAL DISCONT INUED 11/15/2024 [id number] 4 MAIRADick TRIXIE E 2023 30 [facility] QUETIAPINE FUMARATE 50MG TAB TAKE ONE TABLET BY MOUTH AT BEDTIME FOR MOOD REGULATI ON ORAL ACTIVE 06/30/2025 [id number] MAIRADickA TRIXIE E 2024 90 [facility] QUETIAPINE FUMARATE 50MG TAB TAKE ONE TABLET BY MOUTH AT BEDTIME FOR MOOD REGULATI ON ORAL DISCONT INUED 02/03/2025 [id number] 4 Dick RAO E 2023 90 [facility] THIAMINE 100MG TAB TAKE ONE TABLET BY MOUTH ONCE A DAY FOR 10 DAYS FOR VITAMIN B1 SUPPLEME NTATION ORAL 01/23/2024 [id number] BRIGIDO CHASE S 2023 10 [facility] Thiamine 100mg, Tablet, Oral TAKE ONE TABLET BY MOUTH ONCE A DAY FOR 10 DAYS FOR VITAMIN B1 SUPPLEME NTATION 01/23/2024 [id number] 4 THA CHASE S 2023 10 [facility] Allergies, Adverse Reactions, Alerts Combined list of allergies from Department of Defense and Veterans Affairs facilities. It does not include entries that were removed or entered in error. Substance Category Reaction Severity Reaction type Status Date Reported Comments Source No Known Allergies Drug allergy (disorder) active 8 [facility] Immunizations Combined list of available immunizations from the Department of Defense and Veterans Affairs facilities. Immunization Series Date Given Administered By Site Reaction Lot Number CVX Code Drug Melter Helper Status Comments Source Influenza, injectable, quadrivalent, preservative free 1 2018 [id number] 150 Seqirus (SEQ) complet ed Influenza , injectabl e, quadrival ent, preservat el free DoD Influenza, injectable, quadrivalent, preservative free 1 2018 [id number] 150 Seqirus (SEQ) comple t ed Influenza , injectabl e, quadrival ent, preservat el free [facility] hepatitis B vaccine, adult dosage 3 2018 [id number] A4 Dataine (SKB) complet ed hepatitis B vaccine, adult dosage DoD influenza, injectable, quadrivalent, contains preservative 1 2018 [id number] 158 Seqirus (SEQ) complet ed influenza , injectabl e, quadrival ent, contains preservat el DoD varicella virus vaccine 2 2017 [id number] Merck (MSD) complet ed varicella virus vaccine DoD hepatitis B vaccine, adult dosage 2 2017 [id number] SmithKline (SKB) complet ed hepatitis B vaccine, adult dosage DoD measles, mumps and rubella virus vaccine 1 2017 UNK 03 Unknown (UNK) Not Given measles, mumps and rubella virus vaccine DoD poliovirus vaccine, inactivated 1 2017 [id number] 10 Sanofi Pasteur ([facility]) complet ed polioviru s vaccine, inactivat ed DoD varicella virus vaccine 1 2017 [id number] 21 Merck (MSD) complet ed varicella virus vaccine DoD hepatitis B vaccine, adult dosage 1 2017 [id number] 43 SmithKline ([facility]) complet ed hepatitis B vaccine, adult dosage DoD hepatitis A vaccine, adult dosage 1 2017 UNK 52 Unknown (UNK) Not Given hepatitis A vaccine, adult dosage DoD meningococcal polysaccharid e (groups A, C, Y and W-135) diphtheria toxoid conjugate vaccine (MCV4P) 1 2017 [id number] Sanofi Pasteur ([facility]) complet ed meningoco ccal polysacch aride (groups A, C, Y and W-135) diphtheri a toxoid conjugate vaccine (MCV4P) DoD tetanus toxoid, reduced diphtheria toxoid, and acellular pertu is vaccine, adsorbed 1 2017 [id number] A4 Dataine (SKB) complet ed tetanus toxoid, reduced diphtheri a toxoid, and acellular pertussis vaccine, adsorbed DoD Adenovirus, type 4 and type 7, live, oral [id number] [facility] ([facility]) complet ed Adenoviru s, type 4 and type 7, live, oral DoD Influenza, injectable, Madin Tyronza Canine Kidney, quadrivalent with preservative 1 2017 [id number] Seqirus (SEQ) comple t ed Influenza , injectabl e, Madin Tyronza Canine Kidney, quadrival ent with preservat el DoD Results Combined list of recent chemistry, hematology and other laboratory results from Department of Defense and Veterans Affairs, ranging from 15 months to all on record, depending upon the facility. Order Name Results Value Reference Range Date Interpretation Specimen Comments Source ETHANOL SERUM/PL ASMA (STL) ETHANOL [MASS/VOLU ME] IN SERUM OR PLASMA 300 mg/dL 0 - 10 12/22 H Specimen Type: PLASMA Comment: No hemolysis noted. Ordering Provider: MICKI COTTER AR Report Released Date/Time: Dec 23, 2023 04:13 PM Reporting Lab: [facility] [address] [facility] [address] Performing Lab: [place] [address] [facility] [address] [facility] COVID-19 SCREENIN G PANEL (STL-PB) SARS-COV-2 (COVID-19) RNA [PRESENCE] IN RESPIRATOR Y SYSTEM SPECIMEN BY JAK WITH PROBE DETECTION Not Detected 12/22 Specimen Type: NASOPHARYNX Comment: Qualitative real-time PCR and RT-PCR to detect RNA from SARS-CoV-2 virus. A negative result does not preclude infection with the agent(s) tested and should not be used as the sole basis for treatment or other patient management decisions. If negative, but symptoms persist, consider re-testing. Positive results do not rule out bacterial infection or co-infectio n with other viruses. All results must be combined with clinical observation s, patient history, and epidemiolog ical information for final interpretat ion. Ordering Provider: MICKI COTTER AR Report Released Date/Time: Dec 23, 2023 04:13 PM Reporting Lab: [facility] [address] [facility] [address] Performing Lab: [facility] [address] [facility] PREGNANC Y TEST URINE (MA-STL) CHORIOGONA DOTROPIN ( TEST) [PRESENCE] IN URINE NEG 12/22 Specimen Type: URINE No comment entered. Ordering Provider: MUDALLAL,OM AR Report Released Date/Time: Dec 23, 2023 04:13 PM Reporting Lab: [facility] [address] [facility] [address] Performing Lab: [facility] [address] [facility] [address] [facility] URINALYS IS (STL-PB) COLOR OF URINE Colorles s 12/22 Specimen Type: URINE No comment entered. Ordering Provider: MICKI COTTER AR Report Released Date/Time: Dec 23, 2023 04:13 PM Reporting Lab: [facility] [address] [facility] [address] Performing Lab: [facility] [address] [address] [address] [facility] URINALYS IS (STL-PB) BILIRUBIN. TOTAL [PRESENCE] IN URINE BY TEST STRIP Negative mg/dL 12/22 Specimen Type: URINE No comment entered. Ordering Provider: MICKI COTTER Report Released Date/Time: Dec 23, 2023 04:13 PM Reporting Lab: [place] [address] [facility] [address] Performing Lab: [place] [address] [address] [facility] URINALYS IS (STL-PB) PH OF URINE BY TEST STRIP 6.5 5.0 - 8.0 12/22 Specimen Type: URINE No comment entered. Ordering Provider: MICKI COTTER AR Report Released Date/Time: Dec 23, 2023 04:13 PM Reporting Lab: [facility] [address] [facility] [address] Performing Lab: [facility] [address] [address] [facility] URINALYS IS (STL-PB) APPEARANCE OF URINE Clear 12/22 Specimen Type: URINE No comment entered. Ordering Provider: MICKI COTTER AR Report Released Date/Time: Dec 23, 2023 04:13 PM Reporting Lab: [facility] [address] [address] Performing Lab: [facility] [address] [address] [facility] URINALYS IS (STL-PB) NITRITE [PRESENCE] IN URINE BY TEST STRIP Negative mg/dL 12/22 Specimen Type: URINE No comment entered. Ordering Provider: MICKI COTTER AR Report Released Date/Time: Dec 23, 2023 04:13 PM Reporting Lab: [place] [address] [address] Performing Lab: [place] [address] [address] [facility] URINALYS IS (STL-PB) GLUCOSE [MASS/VOLU ME] IN URINE BY TEST STRIP Normalmg /dL 12/22 Specimen Type: URINE No comment entered. Ordering Provider: MICKI COTTER Report Released Date/Time: Dec 23, 2023 04:13 PM Reporting Lab: [place] [address] [address] Performing Lab: [place] [address] [address] [facility] URINALYS IS (STL-PB) PROTEIN [MASS/VOLU ME] IN URINE BY TEST STRIP Negative mg/dL - 20 12/22 Specimen Type: URINE No comment entered. Ordering Provider: MICKI COTTER AR Report Released Date/Time: Dec 23, 2023 04:13 PM Reporting Lab: [place] [address] [facility] [address] Performing Lab: [address] [address] [facility] URINALYS IS (STL-PB) URN.UROBIL INOGEN Normalmg /dL 12/22 Specimen Type: URINE No comment entered. Ordering Provider: MICKI COTTER AR Report Released Date/Time: Dec 23, 2023 04:13 PM Reporting Lab: [place] [address] [address] Performing Lab: [address] [address] [facility] URINALYS IS (STL-PB) HEMOGLOBIN [MASS/VOLU ME] IN URINE BY TEST STRIP Negative mg/dL 12/22 Specimen Type: URINE No comment entered. Ordering Provider: MICKI COTTER Report Released Date/Time: Dec 23, 2023 04:13 PM Reporting Lab: [place] [address] [facility] [address] Performing Lab: [address] [address] [facility] URINALYS IS (STL-PB) KETONES [MASS/VOLU ME] IN URINE BY TEST STRIP Negative mg/dL 12/22 Specimen Type: URINE No comment entered. Ordering Provider: MICKI COTTER AR Report Released Date/Time: Dec 23, 2023 04:13 PM Reporting Lab: [address] [address] Performing Lab: [place] [address] [facility] [address] [facility] URINALYS IS (STL-PB) URN.LEUK.E ST. Negative mg/dL 12/22 Specimen Type: URINE No comment entered. Ordering Provider: MICKI COTTER AR Report Released Date/Time: Dec 23, 2023 04:13 PM Reporting Lab: [place] [address] [facility] [address] Performing Lab: [address] [address] [facility] URINALYS IS (STL-PB) SPECIFIC GRAVITY OF URINE 1.009 1.005 - 1.029 12/22 Specimen Type: URINE No comment entered. Ordering Provider: MICKI COTTER AR Report Released Date/Time: Dec 23, 2023 04:13 PM Reporting Lab: [address] [address] Performing Lab: [address] [address] [facility] METHADON E PANEL (STL) ETHANOL [MASS/VOLU ME] IN URINE 296-POSm g/dL 0 - 20 12/22 H Specimen Type: URINE Comment: The cut-off value for this test was laboratory developed and its performance characteris tics confirmed by the [facility] laboratory thru method comparison with reference laboratory and medication chart review. The laboratory is regulated under CLIA as qualified to perform high-comple xity testing. This test is used for clinical purposes in conjunction with other laboratory tests. Ordering Provider: MICKI COTTER AR Report Released Date/Time: Dec 23, 2023 04:13 PM Reporting Lab: [address] [address] Performing Lab: [address] [address] [facility] METHADON E PANEL (STL) AMPHETAMIN E [PRESENCE] IN URINE BY SCREEN METHOD Negative ng/mL 12/22 Specimen Type: URINE Comment: The cut-off value for this test was laboratory developed and its performance characteris tics confirmed by the [facility] laboratory thru method comparison with reference laboratory and medication chart review. The laboratory is regulated under CLIA as qualified to perform high-comple xity testing. This test is used for clinical purposes in conjunction with other laboratory tests. Ordering Provider: MICKI COTTER AR Report Released Date/Time: Dec 23, 2023 04:13 PM Reporting Lab: [address] [address] Performing Lab: [address] [address] [facility] METHADON E PANEL (STL) BENZOYLECG ONINE [PRESENCE] IN URINE Negative ng/mL 12/22 Specimen Type: URINE Comment: The cut-off value for this test was laboratory developed and its performance characteris tics confirmed by the [facility] laboratory thru method comparison with reference laboratory and medication chart review. The laboratory is regulated under CLIA as qualified to perform high-comple xity testing. This test is used for clinical purposes in conjunction with other laboratory tests. Ordering Provider: MICKI COTTER AR Report Released Date/Time: Dec 23, 2023 04:13 PM Reporting Lab: [place] [address] [facility] [address] Performing Lab: [place] [address] [facility] [address] [facility] METHADON E PANEL (STL) BENZODIAZE PINES [PRESENCE] IN URINE BY SCREEN METHOD Negative ng/mL 12/22 Specimen Type: URINE Comment: The cut-off value for this test was laboratory developed and its performance characteris tics confirmed by the [facility] laboratory thru method comparison with reference laboratory and medication chart review. The laboratory is regulated under CLIA as qualified to perform high-comple xity testing. This test is used for clinical purposes in conjunction with other laboratory tests. Ordering Provider: MICKI COTTER Report Released Date/Time: Dec 23, 2023 04:13 PM Reporting Lab: [place] [address] [facility] [address] Performing Lab: [address] [address] [facility] METHADON E PANEL (STL) CANNABINOI DS [PRESENCE] IN URINE BY SCREEN METHOD 99-POSng /mL 12/22 Specimen Type: URINE Comment: The cut-off value for this test was laboratory developed and its performance characteris tics confirmed by the [facility] laboratory thru method comparison with reference laboratory and medication chart review. The laboratory is regulated under CLIA as qualified to perform high-comple xity testing. This test is used for clinical purposes in conjunction with other laboratory tests. Ordering Provider: MICKI COTTER AR Report Released Date/Time: Dec 23, 2023 04:13 PM Reporting Lab: [place] [address] [facility] [address] Performing Lab: [address] [address] [facility] METHADON E PANEL (STL) METHADONE [PRESENCE] IN URINE Negative ng/mL 12/22 Specimen Type: URINE Comment: The cut-off value for this test was laboratory developed and its performance characteris tics confirmed by the [facility] laboratory thru method comparison with reference laboratory and medication chart review. The laboratory is regulated under CLIA as qualified to perform high-comple xity testing. This test is used for clinical purposes in conjunction with other laboratory tests. Ordering Provider: MICKI COTTER Report Released Date/Time: Dec 23, 2023 04:13 PM Reporting Lab: [address] [address] Performing Lab: [address] [address] [facility] METHADON E PANEL (STL) OPIATES [PRESENCE] IN URINE BY SCREEN METHOD Negative ng/mL 12/22 Specimen Type: URINE Comment: The cut-off value for this test was laboratory developed and its performance characteris tics confirmed by the [facility] laboratory thru method comparison with reference laboratory and medication chart review. The laboratory is regulated under CLIA as qualified to perform high-comple xity testing. This test is used for clinical purposes in conjunction with other laboratory tests. Ordering Provider: MICKI COTTER AR Report Released Date/Time: Dec 23, 2023 04:13 PM Reporting Lab: [address] [address] Performing Lab: [address] [address] [facility] METHADON E PANEL (STL) CREATININE [MASS/VOLU ME] IN URINE 63.4 mg/dL 47 - 110 12/22 Specimen Type: URINE Comment: The cut-off value for this test was laboratory developed and its performance characteris tics confirmed by the [facility] laboratory thru method comparison with reference laboratory and medication chart review. The laboratory is regulated under CLIA as qualified to perform high-comple xity testing. This test is used for clinical purposes in conjunction with other laboratory tests. Ordering Provider: MICKI COTTER Report Released Date/Time: Dec 23, 2023 04:13 PM Reporting Lab: [facility] [address] [address] Performing Lab: [facility] [address] [place] [address] [facility] METHADON E PANEL (STL) OXYCODONE CUTOFF [MASS/VOLU ME] IN URINE FOR SCREEN METHOD Negative ng/mL 12/22 Specimen Type: URINE Comment: The cut-off value for this test was laboratory developed and its performance characteris tics confirmed by the [facility] laboratory thru method comparison with reference laboratory and medication chart review. The laboratory is regulated under CLIA as qualified to perform high-comple xity testing. This test is used for clinical purposes in conjunction with other laboratory tests. Ordering Provider: MICKI COTTER Report Released Date/Time: Dec 23, 2023 04:13 PM Reporting Lab: [address] [address] Performing Lab: [address] [address] [facility] METHADON E PANEL (STL) BUPRENORPH INE [PRESENCE] IN URINE Negative 12/22 Specimen Type: URINE Comment: The cut-off value for this test was laboratory developed and its performance characteris tics confirmed by the [facility] laboratory thru method comparison with reference laboratory and medication chart review. The laboratory is regulated under CLIA as qualified to perform high-comple xity testing. This test is used for clinical purposes in conjunction with other laboratory tests. Ordering Provider: MICKI COTTER Report Released Date/Time: Dec 23, 2023 04:13 PM Reporting Lab: [place] [address] [facility] [address] Performing Lab: [address] [address] [facility] METHADON E PANEL (STL) FENTANYL [PRESENCE] IN URINE Negative ng/mL 12/22 Specimen Type: URINE Comment: The cut-off value for this test was laboratory developed and its performance characteris tics confirmed by the [facility] laboratory thru method comparison with reference laboratory and medication chart review. The laboratory is regulated under CLIA as qualified to perform high-comple xity testing. This test is used for clinical purposes in conjunction with other laboratory tests. Ordering Provider: MICKI COTTER AR Report Released Date/Time: Dec 23, 2023 04:13 PM Reporting Lab: [address] [address] Performing Lab: [address] [address] [facility] COMPREHE NSIVE METABOLI C PANEL CREATININE [MASS/VOLU ME] IN SERUM OR PLASMA 0.84 mg/dL 0.6 - 1.1 12/22 Specimen Type: PLASMA Comment: No hemolysis noted. Ordering Provider: MICKI COTTER AR Report Released Date/Time: Dec 23, 2023 04:13 PM Reporting Lab: [address] [address] Performing Lab: [address] [address] [facility] COMPREHE NSIVE METABOLI C PANEL UREA NITROGEN [MASS/VOLU ME] IN SERUM OR PLASMA 5.6 mg/dL 9.0 - 25.0 12/22 L Specimen Type: PLASMA Comment: No hemolysis noted. Ordering Provider: MICKI COTTER AR Report Released Date/Time: Dec 23, 2023 04:13 PM Reporting Lab: [address] [address] Performing Lab: [address] [address] [facility] COMPREHE NSIVE METABOLI C PANEL GLUCOSE [MASS/VOLU ME] IN SERUM OR PLASMA 109 mg/dL 72 - 99 12/22 H Specimen Type: PLASMA Comment: No hemolysis noted. Ordering Provider: MICKI COTTER AR Report Released Date/Time: Dec 23, 2023 04:13 PM Reporting Lab: [facility] [address] [facility] [address] Performing Lab: [facility] [address] [facility] [address] [facility] COMPREHE NSIVE METABOLI C PANEL SODIUM [MOLES/VOL UME] IN SERUM OR PLASMA 139 meq/L 136 - 145 12/22 Specimen Type: PLASMA Comment: No hemolysis noted. Ordering Provider: MICKI COTTER AR Report Released Date/Time: Dec 23, 2023 04:13 PM Reporting Lab: [facility] [address] [facility] [address] Performing Lab: [facility] [address] [place] [address] [facility] COMPREHE NSIVE METABOLI C PANEL POTASSIUM [MOLES/VOL UME] IN SERUM OR PLASMA 3.7 meq/L 3.5 - 5 12/22 Specimen Type: PLASMA Comment: No hemolysis noted. Ordering Provider: MICKI COTTER AR Report Released Date/Time: Dec 23, 2023 04:13 PM Reporting Lab: [facility] [address] [facility] [address] Performing Lab: [facility] [address] [facility] [address] [facility] COMPREHE NSIVE METABOLI C PANEL CHLORIDE [MOLES/VOL UME] IN SERUM OR PLASMA 108 meq/L 98 - 107 12/22 H Specimen Type: PLASMA Comment: No hemolysis noted. Ordering Provider: MICKI COTTER Report Released Date/Time: Dec 23, 2023 04:13 PM Reporting Lab: [facility] [address] [facility] [address] Performing Lab: [facility] [address] [facility] [address] [facility] COMPREHE NSIVE METABOLI C PANEL CARBON DIOXIDE, TOTAL [MOLES/VOL UME] IN SERUM OR PLASMA 17 meq/L 22 - 31 12/22 L Specimen Type: PLASMA Comment: No hemolysis noted. Ordering Provider: MICKI COTTER Report Released Date/Time: Dec 23, 2023 04:13 PM Reporting Lab: [place] [address] [facility] [address] Performing Lab: [place] [address] [facility] [address] [facility] COMPREHE NSIVE METABOLI C PANEL CALCIUM [MASS/VOLU ME] IN SERUM OR PLASMA 9.1 mg/dL 8.4 - 10.4 12/22 Specimen Type: PLASMA Comment: No hemolysis noted. Ordering Provider: MICKI COTTER Report Released Date/Time: Dec 23, 2023 04:13 PM Reporting Lab: [address] [address] Performing Lab: [place] [address] [facility] [address] [facility] COMPREHE NSIVE METABOLI C PANEL PROTEIN [MASS/VOLU ME] IN SERUM OR PLASMA 8.2 g/dL 6 - 8.6 12/22 Specimen Type: PLASMA Comment: No hemolysis noted. Ordering Provider: MICKI COTTER Report Released Date/Time: Dec 23, 2023 04:13 PM Reporting Lab: [place] [address] [facility] [address] Performing Lab: [place] [address] [facility] [address] [facility] COMPREHE NSIVE METABOLI C PANEL ALBUMIN [MASS/VOLU ME] IN SERUM OR PLASMA 4.4 g/dL 3.4 - 5 12/22 Specimen Type: PLASMA Comment: No hemolysis noted. Ordering Provider: MICKI COTTER Report Released Date/Time: Dec 23, 2023 04:13 PM Reporting Lab: [place] [address] [facility] [address] Performing Lab: [facility] [address] [facility] [address] [facility] COMPREHE NSIVE METABOLI C PANEL BILIRUBIN. TOTAL [MASS/VOLU ME] IN SERUM OR PLASMA 0.3 mg/dL 0.2 - 1.2 12/22 Specimen Type: PLASMA Comment: No hemolysis noted. Ordering Provider: MICKI COTTER AR Report Released Date/Time: Dec 23, 2023 04:13 PM Reporting Lab: [place] [address] [facility] [address] Performing Lab: [place] [address] [facility] [address] [facility] COMPREHE NSIVE METABOLI C PANEL ALKALINE PHOSPHATAS E [ENZYMATIC ACTIVITY/V OLUME] IN SERUM OR PLASMA 82 U/L 40 - 150 12/22 Specimen Type: PLASMA Comment: No hemolysis noted. Ordering Provider: MICKI COTTER AR Report Released Date/Time: Dec 23, 2023 04:13 PM Reporting Lab: [place] [address] [facility] [address] Performing Lab: [place] [address] [facility] [address] [facility] COMPREHE NSIVE METABOLI C PANEL ASPARTATE AMINOTRANS FERASE [ENZYMATIC ACTIVITY/V OLUME] IN SERUM OR PLASMA 25 U/L 5 - 34 12/22 Specimen Type: PLASMA Comment: No hemolysis noted. Ordering Provider: MICKI COTTER AR Report Released Date/Time: Dec 23, 2023 04:13 PM Reporting Lab: [place] [address] [facility] [address] Performing Lab: [address] [address] [facility] COMPREHE NSIVE METABOLI C PANEL ALANINE AMINOTRANS FERASE [ENZYMATIC ACTIVITY/V OLUME] IN SERUM OR PLASMA 17 U/L 8 - 40 12/22 Specimen Type: PLASMA Comment: No hemolysis noted. Ordering Provider: MICKI COTTER AR Report Released Date/Time: Dec 23, 2023 04:13 PM Reporting Lab: [address] [address] Performing Lab: [address] [address] [facility] COMPREHE NSIVE METABOLI C PANEL GLOMERULAR FILTRATION RATE/1.73 SQ M.PREDICTE D [VOLUME RATE/AREA] IN SERUM, PLASMA OR BLOOD BY CREATININE -BASED FORMULA (CKD-EPI 2020) 97.0 60 12/22 Specimen Type: PLASMA Comment: No hemolysis noted. Ordering Provider: MICKI COTTER Report Released Date/Time: Dec 23, 2023 04:13 PM Reporting Lab: [address] [address] Performing Lab: [address] [phone] [place] [address] CBC LEUKOCYTES [#/VOLUME] IN BLOOD BY AUTOMATED COUNT 6.3 10*3/uL 3.6 - 11.2 12/22 Specimen Type: BLOOD No comment entered. Ordering Provider: MICKI COTTER Report Released Date/Time: Dec 23, 2023 04:13 PM Reporting Lab: [address] [address] Performing Lab: [address] [address] [facility] CBC ERYTHROCYT ES [#/VOLUME] IN BLOOD BY AUTOMATED COUNT 4.72 10*6/uL 3.60 - 5.00 12/22 Specimen Type: BLOOD No comment entered. Ordering Provider: MICKI COTTER Report Released Date/Time: Dec 23, 2023 04:13 PM Reporting Lab: [address] [address] Performing Lab: [address] [address] [facility] CBC HEMOGLOBIN [MASS/VOLU ME] IN BLOOD 11.8 g/dL 11.0 - 14.9 12/22 Specimen Type: BLOOD No comment entered. Ordering Provider: MICKI COTTER Report Released Date/Time: Dec 23, 2023 04:13 PM Reporting Lab: [address] [address] Performing Lab: [address] [address] [facility] CBC HEMATOCRIT [VOLUME FRACTION] OF BLOOD 36.7 32.6 - 43.4 12/22 Specimen Type: BLOOD No comment entered. Ordering Provider: MICKI COTTER AR Report Released Date/Time: Dec 23, 2023 04:13 PM Reporting Lab: [address] [address] Performing Lab: [address] [phone] [place] [address] CBC MCV [ENTITIC VOLUME] BY AUTOMATED COUNT 77.8 fL 80.0 - 100.0 12/22 L Specimen Type: BLOOD No comment entered. Ordering Provider: MICKI COTTER AR Report Released Date/Time: Dec 23, 2023 04:13 PM Reporting Lab: [address] [address] Performing Lab: [address] [address] [facility] CBC MCH [ENTITIC MASS] BY AUTOMATED COUNT 25.0 pg 27.0 - 34.0 12/22 L Specimen Type: BLOOD No comment entered. Ordering Provider: MICKI COTTER AR Report Released Date/Time: Dec 23, 2023 04:13 PM Reporting Lab: [address] [address] Performing Lab: [address] [address] [facility] CBC MCHC [MASS/VOLU ME] BY AUTOMATED COUNT 32.2 g/dL 33.0 - 36.0 12/22 L Specimen Type: BLOOD No comment entered. Ordering Provider: MICKI COTTER Report Released Date/Time: Dec 23, 2023 04:13 PM Reporting Lab: [address] [address] Performing Lab: [address] [address] [facility] CBC PLATELETS [#/VOLUME] IN BLOOD BY AUTOMATED COUNT 309 10*3/uL 150 - 400 12/22 Specimen Type: BLOOD No comment entered. Ordering Provider: MICKI COTTER AR Report Released Date/Time: Dec 23, 2023 04:13 PM Reporting Lab: [address] [address] Performing Lab: [address] [phone] [place] [address] CBC PLATELET MEAN VOLUME [ENTITIC VOLUME] IN BLOOD BY AUTOMATED COUNT 10.3 fL 7.5 - 11.2 12/22 Specimen Type: BLOOD No comment entered. Ordering Provider: MICKI COTTER AR Report Released Date/Time: Dec 23, 2023 04:13 PM Reporting Lab: [address] [address] Performing Lab: [address] [address] [facility] CBC ERYTHROCYT E DISTRIBUTI ON WIDTH [RATIO] BY AUTOMATED COUNT 17.3 11.8 - 15.1 12/22 H Specimen Type: BLOOD No comment entered. Ordering Provider: MICKI COTTER AR Report Released Date/Time: Dec 23, 2023 04:13 PM Reporting Lab: [address] [address] Performing Lab: [address] [address] [facility] CBC LYMPHOCYTE S/100 LEUKOCYTES IN BLOOD BY AUTOMATED COUNT 58 12/22 Specimen Type: BLOOD No comment entered. Ordering Provider: MICKI COTTER AR Report Released Date/Time: Dec 23, 2023 04:13 PM Reporting Lab: [facility] [address] [facility] [address] Performing Lab: [facility] [address] [facility] [address] [facility] CBC MONOCYTES/ 100 LEUKOCYTES IN BLOOD BY AUTOMATED COUNT 6 12/22 Specimen Type: BLOOD No comment entered. Ordering Provider: MICKI COTTER AR Report Released Date/Time: Dec 23, 2023 04:13 PM Reporting Lab: [facility] [address] [facility] [address] Performing Lab: [facility] [address] [facility] [address] [facility] CBC NEUTROPHIL S/100 LEUKOCYTES IN BLOOD BY AUTOMATED COUNT 32 12/22 Specimen Type: BLOOD No comment entered. Ordering Provider: MICKI COTTER AR Report Released Date/Time: Dec 23, 2023 04:13 PM Reporting Lab: [facility] [address] [facility] [address] Performing Lab: [facility] [address] [facility] [address] [facility] CBC EOSINOPHIL S/100 LEUKOCYTES IN BLOOD BY AUTOMATED COUNT 2 12/22 Specimen Type: BLOOD No comment entered. Ordering Provider: MICKI COTTER AR Report Released Date/Time: Dec 23, 2023 04:13 PM Reporting Lab: [facility] [address] [facility] [address] Performing Lab: [facility] [address] [facility] [address] [facility] CBC BASOPHILS/ 100 LEUKOCYTES IN BLOOD BY AUTOMATED COUNT 1 12/22 Specimen Type: BLOOD No comment entered. Ordering Provider: MICKI COTTER AR Report Released Date/Time: Dec 23, 2023 04:13 PM Reporting Lab: [facility] [address] [facility] [address] Performing Lab: [address] [address] [facility] CBC LYMPHOCYTE S [#/VOLUME] IN BLOOD BY AUTOMATED COUNT 3.67 10*3/uL 0.77 - 4.50 12/22 Specimen Type: BLOOD No comment entered. Ordering Provider: MICKI COTTER Report Released Date/Time: Dec 23, 2023 04:13 PM Reporting Lab: [address] [address] Performing Lab: [address] [phone] CBC MONOCYTES [#/VOLUME] IN BLOOD BY AUTOMATED COUNT 0.39 10*3/uL 0.19 - 0.80 12/22 Specimen Type: BLOOD No comment entered. Ordering Provider: MICKI COTTER Report Released Date/Time: Dec 23, 2023 04:13 PM Reporting Lab: [address] [address] Performing Lab: [place] [phone] [facility] CBC NEUTROPHIL S [#/VOLUME] IN BLOOD BY AUTOMATED COUNT 2.03 10*3/uL 2.10 - 8.00 12/22 L Specimen Type: BLOOD No comment entered. Ordering Provider: MICKI COTTER AR Report Released Date/Time: Dec 23, 2023 04:13 PM Reporting Lab: [address] [address] Performing Lab: [address] [address] [facility] CBC EOSINOPHIL S [#/VOLUME] IN BLOOD BY AUTOMATED COUNT 0.13 10*3/uL 0.00 - 0.60 12/22 Specimen Type: BLOOD No comment entered. Ordering Provider: MICKI COTTER AR Report Released Date/Time: Dec 23, 2023 04:13 PM Reporting Lab: [place] [address] [address] [facility] [address] Performing Lab: [address] CBC BASOPHILS [#/VOLUME] IN BLOOD BY AUTOMATED COUNT 0.08 10*3/uL 0.00 - 0.20 12/22 Specimen Type: BLOOD No comment entered. Ordering Provider: MICKI COTTER Report Released Date/Time: Dec 23, 2023 04:13 PM Reporting Lab: [place] [address] [facility] [address] Performing Lab: [address] METHADON E PANEL (STL) ETHANOL [MASS/VOLU ME] IN URINE Negative mg/dL 0 - 20 04/12 Specimen Type: URINE Comment: The cut-off value for this test was laboratory developed and its performance characteris tics confirmed by the [facility] laboratory thru method comparison with reference laboratory and medication chart review. The laboratory is regulated under CLIA as qualified to perform high-comple xity testing. This test is used for clinical purposes in conjunction with other laboratory tests. Ordering Provider: MERLE LANG Report Released Date/Time: Apr 12, 2023 07:25 AM Reporting Lab: [address] [address] Performing Lab: [address] [place] E PANEL (STL) AMPHETAMIN E [PRESENCE] IN URINE BY SCREEN METHOD Negative ng/mL 04/12 Specimen Type: URINE Comment: The cut-off value for this test was laboratory developed and its performance characteris tics confirmed by the [facility] laboratory thru method comparison with reference laboratory and medication chart review. The laboratory is regulated under CLIA as qualified to perform high-comple xity testing. This test is used for clinical purposes in conjunction with other laboratory tests. Ordering Provider: MERLE LANG Report Released Date/Time: Apr 12, 2023 07:25 AM Reporting Lab: [place] [address] [facility] [address] Performing Lab: [address] [address] [facility] METHADON E PANEL (STL) BENZOYLECG ONINE [PRESENCE] IN URINE Negative ng/mL 04/12 Specimen Type: URINE Comment: The cut-off value for this test was laboratory developed and its performance characteris tics confirmed by the [facility] laboratory thru method comparison with reference laboratory and medication chart review. The laboratory is regulated under CLIA as qualified to perform high-comple xity testing. This test is used for clinical purposes in conjunction with other laboratory tests. Ordering Provider: MERLE LANG Report Released Date/Time: Apr 12, 2023 07:25 AM Reporting Lab: [address] [address] Performing Lab: [address] [address] [facility] METHADON E PANEL (STL) BENZODIAZE PINES [PRESENCE] IN URINE BY SCREEN METHOD Negative ng/mL 04/12 Specimen Type: URINE Comment: The cut-off value for this test was laboratory developed and its performance characteris tics confirmed by the [facility] laboratory thru method comparison with reference laboratory and medication chart review. The laboratory is regulated under CLIA as qualified to perform high-comple xity testing. This test is used for clinical purposes in conjunction with other laboratory tests. Ordering Provider: MERLE LANG Report Released Date/Time: Apr 12, 2023 07:25 AM Reporting Lab: [address] [address] Performing Lab: [address] [address] [facility] METHADON E PANEL (STL) CANNABINOI DS [PRESENCE] IN URINE BY SCREEN METHOD 100-POSn g/mL 04/12 Specimen Type: URINE Comment: The cut-off value for this test was laboratory developed and its performance characteris tics confirmed by the [facility] laboratory thru method comparison with reference laboratory and medication chart review. The laboratory is regulated under CLIA as qualified to perform high-comple xity testing. This test is used for clinical purposes in conjunction with other laboratory tests. Ordering Provider: MERLE LANG Report Released Date/Time: Apr 12, 2023 07:25 AM Reporting Lab: [facility] [address] [facility] [address] Performing Lab: [facility] [address] [facility] [address] [facility] METHADON E PANEL (STL) METHADONE [PRESENCE] IN URINE Negative ng/mL 04/12 Specimen Type: URINE Comment: The cut-off value for this test was laboratory developed and its performance characteris tics confirmed by the [facility] laboratory thru method comparison with reference laboratory and medication chart review. The laboratory is regulated under CLIA as qualified to perform high-comple xity testing. This test is used for clinical purposes in conjunction with other laboratory tests. Ordering Provider: MERLE LANG Report Released Date/Time: Apr 12, 2023 07:25 AM Reporting Lab: [facility] [address] [facility] [address] Performing Lab: [place] [address] [facility] [address] [facility] METHADON E PANEL (STL) OPIATES [PRESENCE] IN URINE BY SCREEN METHOD Negative ng/mL 04/12 Specimen Type: URINE Comment: The cut-off value for this test was laboratory developed and its performance characteris tics confirmed by the [facility] laboratory thru method comparison with reference laboratory and medication chart review. The laboratory is regulated under CLIA as qualified to perform high-comple xity testing. This test is used for clinical purposes in conjunction with other laboratory tests. Ordering Provider: MERLE LANG Report Released Date/Time: Apr 12, 2023 07:25 AM Reporting Lab: [facility] [place] [address] [address] Performing Lab: [address] [address] [facility] METHADON E PANEL (STL) CREATININE [MASS/VOLU ME] IN URINE 59.3 mg/dL 47 - 110 04/12 Specimen Type: URINE Comment: The cut-off value for this test was laboratory developed and its performance characteris tics confirmed by the [facility] laboratory thru method comparison with reference laboratory and medication chart review. The laboratory is regulated under CLIA as qualified to perform high-comple xity testing. This test is used for clinical purposes in conjunction with other laboratory tests. Ordering Provider: MERLE LANG Report Released Date/Time: Apr 12, 2023 07:25 AM Reporting Lab: [address] [address] Performing Lab: [address] [address] [facility] METHADON E PANEL (STL) OXYCODONE CUTOFF [MASS/VOLU ME] IN URINE FOR SCREEN METHOD Negative ng/mL 04/12 Specimen Type: URINE Comment: The cut-off value for this test was laboratory developed and its performance characteris tics confirmed by the [facility] laboratory thru method comparison with reference laboratory and medication chart review. The laboratory is regulated under CLIA as qualified to perform high-comple xity testing. This test is used for clinical purposes in conjunction with other laboratory tests. Ordering Provider: MERLE LANG Report Released Date/Time: Apr 12, 2023 07:25 AM Reporting Lab: [address] [address] Performing Lab: [address] [address] [facility] METHADON E PANEL (STL) BUPRENORPH INE [PRESENCE] IN URINE Negative 04/12 Specimen Type: URINE Comment: The cut-off value for this test was laboratory developed and its performance characteris tics confirmed by the [facility] laboratory thru method comparison with reference laboratory and medication chart review. The laboratory is regulated under CLIA as qualified to perform high-comple xity testing. This test is used for clinical purposes in conjunction with other laboratory tests. Ordering Provider: MERLE LANG Report Released Date/Time: Apr 12, 2023 07:25 AM Reporting Lab: [place] [address] [facility] [address] Performing Lab: [address] [address] [facility] METHADON E PANEL (STL) FENTANYL [PRESENCE] IN URINE Negative ng/mL 04/12 Specimen Type: URINE Comment: The cut-off value for this test was laboratory developed and its performance characteris tics confirmed by the [facility] laboratory thru method comparison with reference laboratory and medication chart review. The laboratory is regulated under CLIA as qualified to perform high-comple xity testing. This test is used for clinical purposes in conjunction with other laboratory tests. Ordering Provider: MERLE LANG Report Released Date/Time: Apr 12, 2023 07:25 AM Reporting Lab: [address] [address] Performing Lab: [address] [address] [facility] GC & CHLAMYDI A PCR (STL-PB) NEISSERIA GONORRHOEA E DNA [PRESENCE] IN URINE BY JAK WITH PROBE DETECTION Not Detected 04/07 Specimen Type: URINE Comment: This is a qualitative real-time PCR test for the detection and differentia tion of genomic DNA from Chlamydia trachomatis (CT) and Neisseria gonorrhoeae (NG). A negative result does not preclude infection with the agent(s) tested and should not be used as the sole basis for treatment or other patient management decisions. If negative, but symptoms persist, consider re-testing. A positive test does not necessarily indicate the presence of viable organisms, following bacterial culture (for NG) to recover the organism for further characteriz ation and susceptibil ity testing. All results must be combined with clinical observation s, patient history, and epidemiolog ical information for final interpretat ion. Ordering Provider: MAREN GROVE Report Released Date/Time: Apr 06, 2023 02:04 PM Reporting Lab: [facility] [address] [facility] [address] Performing Lab: [facility] [address] [facility] [address] [facility] GC & CHLAMYDI A PCR ([facility]) CHLAMYDIA SP DNA [PRESENCE] IN URINE BY JAK WITH PROBE DETECTION Not Detected 04/07 Specimen Type: URINE Comment: This is a qualitative real-time PCR test for the detection and differentia tion of genomic DNA from Chlamydia trachomatis (CT) and Neisseria gonorrhoeae (NG). A negative result does not preclude infection with the agent(s) tested and should not be used as the sole basis for treatment or other patient management decisions. If negative, but symptoms persist, consider re-testing. A positive test does not necessarily indicate the presence of viable organisms, following bacterial culture (for NG) to recover the organism for further characteriz ation and susceptibil ity testing. All results must be combined with clinical observation s, patient history, and epidemiolog ical information for final interpretat ion. Ordering Provider: MAREN GROVE Report Released Date/Time: Apr 06, 2023 02:04 PM Reporting Lab: [facility] [address] [facility] [address] Performing Lab: [facility] [address] [place] [phone] [facility] RAPID PLASMA REAGIN (RPR) REAGIN AB [PRESENCE] IN SERUM BY RPR NON-REAC TIVE 04/07 Specimen Type: SERUM No comment entered. Ordering Provider: MAREN GROVE Report Released Date/Time: Apr 06, 2023 02:04 PM Reporting Lab: [facility] [address] [facility] [address] Performing Lab: [facility] [address] [place] [phone] [facility] Vital Signs Combined list of inpatient and outpatient Vital Signs from [facility], ranging from 12 months to all on record, depending upon the facility. Vital Sign Value Date Comments Source SYSTOLIC BLOOD PRESSURE 105 12/24/2023 05:39:08 [facility] DIASTOLIC BLOOD PRESSURE 67 12/24/2023 05:39:08 [facility] PULSE OXIMETRY 100 12/24/2023 05:39:08 [facility] PAIN 1 12/24/2023 05:39:08 [facility] TEMPERATURE 98.7 12/24/2023 05:39:08 [facility] PULSE 62 12/24/2023 05:39:08 [facility] RESPIRATION 16 12/24/2023 05:39:08 [facility] SYSTOLIC BLOOD PRESSURE 116 12/23/2023 16:08:00 [facility] DIASTOLIC BLOOD PRESSURE 69 12/23/2023 16:08:00 [facility] PAIN 0 12/23/2023 16:08:00 [facility] TEMPERATURE 98.2 12/23/2023 16:08:00 [facility] PULSE 94 12/23/2023 16:08:00 [facility] DIVISION RESPIRATION 16 12/23/2023 16:08:00 [facility] Encounters Combined list of: 1) Encounters from [facility] facilities going backup to the last 18 months, not all NH inpatient encounters are included; 2) Encounters from the Department of [facility] facilities going backup to 280 months. Location Location Details Encounter Type Encounter Number Reason For Visit Attending Provider ADM Date DC Date Status Disposition Source [facility](IEP Primary Care) OUTPATIENT [id number] Notes Entered by: VERNON DURÁN OD 29 Sep 2017 1104 ------- ------- ------- ------- -- right ankle injury TEZ AJ 09/29 Released with Work/Duty Limitations [employer](I EP Primary Care) [employer](PES Optometry -Trainee) OUTPATIENT [id number] BARRON LEAL Nigel 09/29 Released w/o Limitations [employer](P ES Optomet ry-Kirill nee) [employer]([facility] Physical Exam) OUTPATIENT [id number] Notes Entered by: Nicolasa CHEATHAM 03 Oct 2017 0734 ------- ------- ------- ------- -- To get clear to ship for right ankle TEZ AJ 10/03 Released w/o Limitations [employer](R MC Physica l Exam) [employer](JORGE LUIS C Immunizat ions (Post)) OUTPATIENT [id number] Notes Entered by: Pieter GOMEZ 04 Oct 2017 1005 ------- ------- ------- ------- -- IET MESHA NOLAN 10/04 Released w/o Limitations [facility] Immuniz ations (Post)) [facility]) OUTPATIENT [id number] Notes Entered by: FORTUNATO ORDOÑEZ 06 Oct 2017 0955 ------- ------- ------- ------- -- Ankle pain DULCE MARIA KEMP 10/06 Released w/o Limitations [facility](T MC Physica l Therapy ) [facility]) OUTPATIENT [id number] Notes Entered by: FORTUNATO ORDOÑEZ 12 Oct 2017 1021 ------- ------- ------- ------- -- Ankle pain DULCE MARIA KEMP 10/12 Released with Work/Duty Limitations [employer](T MC Physica l Therapy ) [facility]GE [facility] C Immunizat ions (Post)) OUTPATIENT [id number] Notes Entered by: Pieter GOMEZ 02 Nov 2017 1017 ------- ------- ------- ------- -- DF MESHA NOLAN 11/02 Released w/o Limitations [facility] Immuniz ations (Post)) [facility]([address]) OUTPATIENT [id number] Notes Entered by: RIO LIPSCOMB 02 Jan 2018 0701 ------- ------- ------- ------- -- Lighthe aded Dizzy HARITHA NGO 01/02 Sick at Home/Quarter s [facility]([address]) [facility]([address]) TELE CONSULT [id number] Notes Entered by: HARITHA NGO 03 Jan 2018 1018 ------- ------- ------- ------- -- To review labs ELPIDIO TURCIOS 01/03 [facility]([address]) [facility]([address]) OUTPATIENT [id number] Notes Entered by: RIO LIPSCOMB 05 Jan 2018 0633 ------- ------- ------- ------- -- Follow up call back HARITHA NGO 01/05 Released w/o Limitations [facility]([address]) [facility]([address]) OUTPATIENT [id number] Notes Entered by: SORIN HERZOG 13 Jan 2018 0643 ------- ------- ------- ------- -- ankle pain HARITHA NGO 01/13 Released with Work/Duty Limitations [facility]([address]) [facility]([address]) OUTPATIENT [id number] Notes Entered by: SORIN HERZOG 24 Jan 2018 0634 ------- ------- ------- ------- -- follow up HARITHA NGO 01/24 Released with Work/Duty Limitations [facility]([address]) [facility]([address]) OUTPATIENT [id number] Notes Entered by: RIO LIPSCOMB 30 Jan 2018 0636 ------- ------- ------- ------- -- Ankle pain F/U HARITHA NGOPOONAM 01/30 Released with Work/Duty Limitations [facility]([address]) [facility]([address]) TELE CONSULT [id number] Notes Entered by: Dick ZAMAN 14 Feb 2018 1447 ------- ------- ------- ------- -- f/u mri WALLY ZAMAN 02/14 [facility]([address]) [facility]([address]) OUTPATIENT [id number] Notes Entered by: Aaron RODRIGUEZ 15 Feb 2018 0705 ------- ------- ------- ------- -- Right Ankle AMINTA BRAMBILA 02/15 Released with Work/Duty Limitations [facility]([address]) [facility]([address]) OUTPATIENT [id number] Pain in right ankle and joints of right foot AMINTA BRAMBILA 02/20 Released with Work/Duty Limitations [facility]([address]) [facility]) OUTPATIENT [id number] unstabl e fractur ed ankle DUERDESTEFANI MOBLEY 02/21 Released w/o Limitations [facility](Anil t & Ankle Clinic [facility]) [facility]([address]) OUTPATIENT [id number] Ankle Pain AMINTA BRAMBILA 02/24 Released w/o Limitations [facility](T[facility] -1 Primary Care NE) [facility] Marjorie [place]([facility]) OUTPATIENT [id number] Notes Entered by: MIKE POWELL 08 Sep 2018 0929 ------- ------- ------- ------- -- imr/pha /mf 830/flu /hep b/g6pd/ vision YESSENIA LEE 09/08 Released w/o Limitations [facility] [place] [facility] [place] Hearing Conservat ion Exam[place] OUTPATIENT [id number] Notes Entered by: MANUEL BASURTO 08 Sep 2018 1112 ------- ------- ------- ------- -- MANUEL Rossi 09/08 Released w/o Limitations [facility] [place] Conserv ation Exam) [facility] Dez CHILDS ([facility])(S[facility] Fam Res [place]) TELE CONSULT [id number] Notes Entered by: Sandi CHANEY 23 Sep 2018 0744 ------- ------- ------- ------- -- F/u ER visit NYDIA CHANEY 09/23 Referred for Appointment [facility] Dez CHILDS ([facility])(S [facility] Fam Res [place] [place]) [facility] PRO PHONE CALL 11-20 MIN [id number] [id number] Diagnos is: ICD-10- CM Z59.02 Unshelt ered homeBUD Posey P 06/[address] [facility] PRO PHONE CALL 11-20 MIN [id number] [id number] Diagnos is: ICD-10- CM Z59.02 Unshelt ered homeles BUD Brewster P 12/28 /[address] [facility] CASE MANAGEMENT [id number] [id number] Diagnos is: ICD-10- CM Z59.02 Unshelt ered BUD ByrdNE P 07/[address] [facility] HC PRO PHONE CALL 11-20 MIN [id number] Diagnos is: ICD-10- CM F43.10 Post-tr aumatic stress disorde r, unspeci REN Hassan 07/05 [facility] Encounter [id number] 07/05 [facility] PRO PHONE CALL 5-10 MIN [id number] [id number] Diagnos is: ICD-10- CM Z59.02 Unshelt BUD Solis LAURA P 07/[address] [facility] CASE MANAGEMENT [id number] [id number] Diagnos is: ICD-10- CM Z59.02 Unshelt ered BUD Byrd LAURA P 07/[address] [facility] [place] HC PRO PHONE CALL 5-10 MIN [id number] [id number] Diagnos is: ICD-10- CM Z59.02 Unshelt ered BUD Byrd LAURA P 07/[address] [facility] HC PRO PHONE CALL 11-20 MIN [id number] [id number] Diagnos is: ICD-10- CM F43.10 Post-tr aumatic stress disorde r, unspeci REN Hassan 07/27 [facility] Outpatient Encounter [id number] [id number] Diagnos is: ICD-10- CM F10.20 Alcohol depende nce, uncompl icated LAY XIONG LBFrancisca L 07/28 [facility] Outpatient Encounter [id number] [id number] 07/28 [facility] HC PRO PHONE CALL 21-30 MIN [id number] [id number] Diagnos is: ICD-10- CM F43.10 Post-tr aumatic stress disorde r, unspeci fied BELLA BUSTOS S 07/28 [facility] Outpatient Encounter [id number] [id number] 07/28 [facility] Outpatient Encounter [id number] [id number] BELLA BUSTOS S 07/28 [facility] Outpatient Encounter [id number] [id number] 07/28 [facility] Outpatient Encounter [id number] [id number] 07/29 [facility] QNHP OL DIG ASSMT&MGMT 11-20 [id number] [id number] Diagnos is: ICD-10- CM R45.851 Suicida l ideatio ns CASADY,TAR A E 07/29 [facility] Outpatient Encounter [id number] [id number] BELLA BUSTOS S 07/29 [facility] HC PRO PHONE CALL 21-30 MIN [id number] [id number] Diagnos is: ICD-10- CM Z59.02 Unshelt BUD Solis P 08/01 [address] [facility] Outpatient Encounter [id number] [id number] ALEX BECK AN 08/01 [facility] HC PRO PHONE CALL 21-30 MIN [id number] [id number] Diagnos is: ICD-10- CM R45.851 Suicida l ideatio ns CASADY,TAR A E 08/01 [facility] HC PRO PHONE CALL 21-30 MIN [id number] [id number] Diagnos is: ICD-10- CM R45.851 Suicida l ideatio ns CASADY,TAR A E 08/01 [facility] CASE MANAGEMENT [id number] [id number] Diagnos is: ICD-10- CM Z59.02 Unshelt BUD Solis P 08/02 [address] [facility] HC PRO PHONE CALL 21-30 MIN [id number] [id number] Diagnos is: ICD-10- CM F10.20 Alcohol depende nce, uncompl icated CASADY,TAR A E 08/04 [facility] Outpatient Encounter [id number] [id number] 08/05 [facility] Outpatient Encounter [id number] [id number] CASADY,TAR A E 08/08 [facility] [address] [facility] PSYTX W PT 45 MINUTES 55008-6.65 [id number] Diagnos is: ICD-10- CM Z59.02 Unshelt ered BUD ByrdNE P 08/[address] [facility] Outpatient Encounter [id number] [id number] 08/09 [facility] [address] [facility] HC PRO PHONE CALL 11-20 MIN [id number] [id number] Diagnos is: ICD-10- CM Z59.02 Unshelt ered BUD ByrdNE P 08/[address] [facility] HC PRO PHONE CALL 21-30 MIN [id number] [id number] Diagnos is: ICD-10- CM F43.12 Post-tr aumatic stress disorde r, chronic CASADY,TAR A E 08/09 [facility] [address] [facility] PSYTX W PT 30 MINUTES [id number] [id number] Diagnos is: ICD-10- CM Z59.02 Unshelt ered BUD Byrd P 08/[address] [facility] Outpatient Encounter [id number] [id number] 08/12 [facility] Outpatient Encounter [id number] [id number] 08/12 [facility] Outpatient Encounter [id number] [id number] ALEX BECK 08/15 [facility] PRO PHONE CALL 5-10 MIN [id number] [id number] Diagnos is: ICD-10- CM 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 KIRANALEX JEROMY 08/15 [facility] [address] [address] [facility] PSYTX W PT 45 MINUTES [id number] [id number] Diagnos is: ICD-10- CM Z59.02 Unshelt ered homeles BUD Brewster P 08/[address] [facility] PSYTX W PT 60 MINUTES [id number] [id number] Diagnos is: ICD-10- CM F43.10 Post-tr aumatic stress disorde r, unspeci fied TYRESE,SHE LBY L 08/15 [facility] Outpatient Encounter [id number] [id number] 08/17 [facility] HC PRO PHONE CALL 11-20 MIN [id number] [id number] Diagnos is: ICD-10- CM F43.12 Post-tr aumatic stress disorde r, chronic CASADY,TAR A E 08/24 [facility] Outpatient Encounter [id number] [id number] Diagnos is: ICD-10- CM F43.10 Post-tr aumatic stress disorde r, unspeci fied LATAL,PAWEL PO S 08/24 [facility] OFFICE O/P EST HI 40 MIN [id number] [id number] Diagnos is: ICD-10- CM F43.10 Post-tr aumatic stress disorde r, unspeci fied LATAL,PAWEL PO S 08/24 [facility] [address] [facility] CASE MANAGEMENT [id number] [id number] Diagnos is: ICD-10- CM Z59.02 Unshelt BUD Solis P 08/[address] [facility] PSYTX W PT 45 MINUTES [id number] [id number] 447 Diagnos is: ICD-10- CM F43.12 Post-tr aumatic stress disorde r, chronic TYRESE,SHE LBY L 08/30 [facility] HC PRO PHONE CALL 21-30 MIN [id number] [id number] Diagnos is: ICD-10- CM F43.12 Post-tr aumatic stress disorde r, chronic CASADY,TAR A E 09/01 [facility] [address] [facility] HC PRO PHONE CALL 5-10 MIN [id number] [id number] Diagnos is: ICD-10- CM Z59.02 UnsBUD Leblanc P 09/[address] [facility] [place] [address] [place] [facility] HC PRO PHONE CALL 11-20 MIN [id number] [id number] Diagnos is: ICD-10- CM Z59.02 UnshelBUD LooNE P 09/[address] [facility] [place] [address] [place] [facility] CASE MANAGEMENT [id number] [id number] Diagnos is: ICD-10- CM Z59.02 Unshelt BUD SolisNE P 09/[address] [facility] OFFICE O/P NEW MOD 45 MIN [id number] [id number] Diagnos is: ICD-10- CM F43.10 Post-tr aumatic stress disorde r, unspeci fied MAIRA,JEROMY NA TRIXIE E 09/12 [facility] [address] [facility] HC PRO PHONE CALL 21-30 MIN [id number] [id number] Diagnos is: ICD-10- CM Z59.02 Unshelt ered BUD ByrdNE P 09/[address] [facility] [place] [facility] [place] [facility] PSYTX W PT 45 MINUTES 07817-7.65 [id number] 523 Diagnos is: ICD-10- CM Z59.02 Unshelt ered BUD ByrdNE P 09/[address] [facility] PSYTX W PT 60 MINUTES 72897-9.65 [id number] Diagnos is: ICD-10- CM F31.89 Other bipolar disorde r LAY XIONG L 09/19 [facility] [address] [facility] PT EDUCATION NOC INDIVID [id number] [id number] Diagnos is: ICD-10- CM Z59.02 Unshelt ered BUD ByrdNE P 09/[address] [facility] [place] [facility] [place] [facility] HC PRO PHONE CALL 5-10 MIN [id number] [id number] Diagnos is: ICD-10- CM Z59.02 Unshelt ered BUD ByrdNE P 09/[address] [facility] PT EDUCATION NOC INDIVID 69167-3.65 [id number] Diagnos is: ICD-10- CM Z59.9 Problem related to housing and economi c whitley ely, SHELLEY Myrick 09/[address] [facility] PSYTX W PT 60 MINUTES 43350-1.65 [id number] Diagnos is: ICD-10- CM F31.89 Other bipolar disorde LAY Ramirez LBY L 10/03 [facility] PHONE CALL 11-20 MIN 12230-6.65 [id number] Diagnos is: ICD-10- CM Z59.02 Unshelt ered homeles anel NGUYEN,BUD LAURA P 10/03 [address] [facility] Outpatient Encounter [id number] [id number] 10/04 [facility] Outpatient Encounter [id number] [id number] 10/05 [facility] PSYTX W PT 30 MINUTES 82017-9.65 [id number] Diagnos is: ICD-10- CM Z59.02 Unshelt ered homeBUD Posey LAURA P 10/09 [address] [facility] HC PRO PHONE CALL 21-30 MIN 20203-3.65 [id number] Diagnos is: ICD-10- CM Z59.9 Problem related to housing and economi c circums taneverardo, SHELLEY Myrick M 10/16 [address] [facility] [place] [facility] HC PRO PHONE CALL 21-30 MIN [id number] [id number] Diagnos is: ICD-10- CM Z59.9 Problem related to housing and economi c circums jhoana, kenya PATRICK,BUD LAURA P 10/16 [address] [facility] Outpatient Encounter [id number] [id number] 10/17 [facility] Encounter [id number] [id number] 10/17 [facility] Outpatient Encounter [id number] [id number] 10/17 [facility] Outpatient Encounter [id number] [id number] CATE HUNG E 10/24 [facility] [address] [address] [facility] HC PRO PHONE CALL 21-30 MIN [id number] [id number] Diagnos is: ICD-10- CM Z59.9 Problem related to housing and economi c circums tances, unsp JANOCH,MAD LAURA P 10/26 [address] [facility] Outpatient Encounter [id number] [id number] ALLEY DEL CID 10/26 [facility] N [address] [facility] CASE MANAGEMENT [id number] [id number] Diagnos is: ICD-10- CM Z59.89 Other problem s related to housing and economi c circums tances GREEN,LEANN SEA 10/31 [address] [facility] [place] [address] [place] [facility] HC PRO PHONE CALL 5-10 MIN [id number] [id number] 037 Diagnos is: ICD-10- CM Z59.9 Problem related to housing and economi c circums tances, unsp JANOCH,MAD LAURA P 11/02 [address] [facility] Outpatient Encounter [id number] [id number] 11/06 [facility] [address] [address] [facility] HC PRO PHONE CALL 21-30 MIN [id number] [id number] Diagnos is: ICD-10- CM Z59.89 Other problem s related to housing and economi c circums tances GREEN,LEANN SEA 11/[address] [facility] Outpatient Encounter [id number] [id number] 11/09 [facility] HC PRO PHONE CALL 21-30 MIN 75064-4.65 [id number] 978 Diagnos is: ICD-10- CM Z59.89 Other problem s related to housing and economi c whitley LARALEANN SEA 11/10 [address] [facility] CASE MANAGEMENT [id number] [id number] Diagnos is: ICD-10- CM Z59.89 Other problem s related to housing and economi c whitley LARALEANN SEA 11/14 [address] [facility] OFFICE O/P EST MOD 30 MIN 55032-4.65 [id number] Diagnos is: ICD-10- CM F10.20 Alcohol depende nce, uncompl icated MAIRA,AN NA TRIXIE E 11/14 [facility] Outpatient Encounter [id number] [id number] 11/14 [address] [facility] Outpatient Encounter [id number] [id number] 11/15 [facility] Encounter [id number] [id number] 11/16 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 ALEX Crenshaw 11/21 [facility] [address] [facility] CASE MANAGEMENT [id number] [id number] Diagnos is: ICD-10- CM Z59.89 Other problem s related to housing and economi c circums taneverardo GREEN,LEANN SEA 11/[address] [facility] Outpatient Encounter [id number] [id number] 11/23 [facility] HC PRO PHONE CALL 5-10 MIN [id number] [id number] Diagnos is: ICD-10- CM 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 ALEX BECK 11/29 [facility] N [address] [facility] CASE MANAGEMENT [id number] [id number] Diagnos is: ICD-10- CM Z59.89 Other problem s related to housing and economi c circums jhoana GREEN,LEANN SEA 11/[address] [facility] [place] [address] [place] [facility] CASE MANAGEMENT [id number] [id number] Diagnos is: ICD-10- CM Z59.89 Other problem s related to housing and economi c circums tances GREEN,LEANN SEA 12/[address] [facility] Outpatient Encounter [id number] [id number] 12/05 [facility] [address] [facility] Outpatient Encounter [id number] [id number] 12/[address] [facility] Outpatient Encounter [id number] [id number] 12/[address] [facility] Outpatient Encounter [id number] [id number] 12/07 [facility] Outpatient Encounter [id number] [id number] 12/08 [facility] Outpatient Encounter [id number] [id number] 12/08 [facility] [address] [facility] Outpatient Encounter [id number] [id number] 12/[address] [facility] Outpatient Encounter [id number] [id number] 12/11 [facility] Encounter [id number] [id number] 12/13 [facility] Outpatient Encounter [id number] [id number] 12/14 [facility] PSYTX W PT 30 MINUTES [id number] [id number] Diagnos is: ICD-10- CM F10.20 Alcohol depende nce, uncompl icated MARIE CLAROS 12/15 [facility] Outpatient Encounter [id number] [id number] 12/22 [facility] OFFICE O/P EST MOD 30 MIN [id number] [id number] Diagnos is: ICD-10- CM F10.20 Alcohol depende nce, uncompl icated JEROMY RAO 12/22 [facility] EMERGENCY DEPT VISIT [facility] [id number] Diagnos is: ICD-10- CM F10.20 Alcohol depende nce, uncompl icated MUDALLAL,O MAR 12/22 [facility] EMERGENCY DEPT VISIT [facility] [id number] Diagnos is: ICD-10- CM F10.20 Alcohol depende nce, uncompl icated MUDALLAL,O MAR 12/22 [facility] Detoxifica tion Services for Substance Abuse Treatment [id number] Admit Reason: ALCOHOL DETOXIF ICATION KAMJONI LIMAA SIR 12/22 [facility] Inpatient Encounter [id number] APPIAH,SUSI HELLE E 12/23 [facility] Inpatient Encounter [id number] APPIAH,SUSI HELLE E 12/23 [facility] Inpatient Encounter [id number] APPIAH,SUSI HELLE E 12/23 [facility] Inpatient Encounter [id number] APPIAH,SUSI HELLE E 12/23 [facility] Inpatient Encounter [id number] [employer] 12/23 [facility] Inpatient Encounter [id number] [employer] 12/23 [facility] DIVISION PSYCH DIAG EVAL W/MED SRVCS [id number] Diagnos is: ICD-10- CM F10.20 Alcohol depende nce, uncompl icated Dick VILLARREAL NGELA 12/23 [facility]P IP/OBS DSCHRG MGMT >30 [id number] [id number] Diagnos is: ICD-10- CM F10.20 Alcohol depende nce, uncompl icated LAKIA CHASE S 12/23 [facility] Inpatient Encounter [id number] SUSI ARORA 12/23 [facility] [address] [facility] CASE MANAGEMENT [id number] Diagnos is: ICD-10- CM Z59.89 Other problem s related to housing and economi c circums tances GREEN,LEANN SEA 12/25 [place] [facility] DIV[facility] Outpatient Encounter [id number] 12/27 [facility]ISIO N [place] [address] [facility] CASE MANAGEMENT [id number] Diagnos is: ICD-10- CM Z59.89 Other problem s related to housing and economi c circums tances GREEN,LEANN SEA 01/01 [place] [facility] [address] [address] [facility] CASE MANAGEMENT [id number] Diagnos is: ICD-10- CM Z59.89 Other problem s related to housing and economi c circums tances GREEN,LEANN SEA 01/02 KEISHA ZALDIVAR [facility] HC PRO PHONE CALL 11-20 MIN [id number] Diagnos is: ICD-10- CM F10.20 Alcohol depende nce, uncompl icated REN PEREYRA GUCCI BOB 01/02 [facility] Outpatient Encounter [id number] 01/02 [facility] Outpatient Encounter [id number] REN PEREYRA GUCCI BOB 01/02 [facility] Outpatient Encounter [id number] Diagnos is: ICD-10- CM F10.20 Alcohol depende nce, uncompl icated MICHAEL SUAZO 01/03 [facility] Outpatient Encounter [id number] Ish TIAN 01/03 [facility] PSYTX W PT 30 MINUTES [id number] [id number] Diagnos is: ICD-10- CM F31.81 Bipolar II disorde r Ish TIAN 01/03 [facility] Outpatient Encounter [id number] 01/03 [facility] Outpatient Encounter [id number] 01/03 [facility] DIVISION Outpatient Encounter [id number] Ish TIAN 01/05 [facility] Outpatient Encounter [id number] Ish TIAN OSWALDO 01/08 [facility] PSYTX W PT 60 MINUTES [id number] Diagnos is: ICD-10- CM F10.239 Alcohol depende nce with withdrdick ceja, unspeci fay Ish TIAN OSWALDO 01/09 [facility] N [facility] Outpatient Encounter [id number] 01/09 [facility] CASE MANAGEMENT [id number] Diagnos is: ICD-10- CM Z59.89 Other problem s related to housing and economi c circums LEANN Tsai 01/[address] [facility] DIVISION HC PRO PHONE CALL 11-20 MIN [id number] Diagnos is: ICD-10- CM F10.20 Alcohol depende nce, uncompl icated REN PEREYRA 01/15 [facility] Outpatient Encounter [id number] 01/15 [facility] Outpatient Encounter [id number] REN PEREYRA 01/15 [facility] OFFICE O/P EST MOD 30 MIN [id number] Diagnos is: ICD-10- CM F43.10 Post-tr aumatic stress disorde r, unspeci fiJEROMY Briscoe 02/02 [facility] N [facility] Outpatient Encounter [id number]. [id number] 02/20 [facility] Outpatient Encounter [id number] 03/07 [facility] [address] [facility] CASE MANAGEMENT [id number] Diagnos is: ICD-10- CM Z59.89 Other problem s related to housing and economi c circums taneverardo GREEN,LEANN SEA 03/09 [place] [facility] Outpatient Encounter [id number]. [id number] GREEN,LEANN SEA 03/09 [facility] Outpatient Encounter [id number]. [id number] GREEN,LEANN SEA 03/09 [facility] OFFICE O/P EST MOD 30 MIN [id number] Diagnos is: ICD-10- CM F43.10 Post-tr aumatic stress disorde r, unspeci fied JEROMY RAO E 03/22 [facility] Outpatient Encounter [id number] 03/27 [facility] Outpatient Encounter [id number] Ish TIAN 03/27 [facility] QNHP OL DIG ASSMT&MGMT 5-10 [id number] [id number] Diagnos is: ICD-10- CM F43.10 Post-tr aumatic stress disorde r, unspeci fied BELLA BUSTOSYN S 03/27 [facility] HC PRO PHONE CALL 11-20 MIN [id number] Diagnos is: ICD-10- CM F10.220 Alcohol depende nce with intoxic ation, uncompl icated Ish TIANTTA 03/27 [facility] Outpatient Encounter [id number] 04/01 [facility] CRISIS INTERVEN SVC, 15 MIN [id number] [id number] Diagnos is: ICD-10- CM F43.12 Post-tr aumatic stress disorde r, chronic O'JO,CO LLEEN E 04/01 [facility] HL BHV ASSMT/REAS SESSMENT [id number] [id number] Diagnos is: ICD-10- CM Z78.9 Other specifi ed health status MORE LOPEZ 04/03 [facility] Outpatient Encounter [id number] MARIE CLAROS 04/04 [facility] Outpatient Encounter [id number] 04/04 [facility] Outpatient Encounter [id number] 04/05 [facility] Outpatient Encounter [id number] JAYRO ANTONIO 04/06 [facility] Outpatient Encounter [id number] REN PEREYRA LISBETH 04/06 [facility] HC PRO PHONE CALL 5-10 MIN [id number] Diagnos is: ICD-10- CM F10.20 Alcohol depende nce, uncompl icated REN PEREYRA LISBETH 04/09 [facility] N [facility] Outpatient Encounter [id number] REN PEREYRA LISBETH 04/09 [facility] [address] [facility] CASE MANAGEMENT [id number] Diagnos is: ICD-10- CM Z59.89 Other problem s related to housing and economi c LEANN Leal 04/09 [facility] EST MOD 30 MIN [id number] Diagnos is: ICD-10- CM F43.10 Post-tr aumatic stress disorde r, unspeci fiJEROMY Briscoe 05/04 [facility] Outpatient Encounter [id number] 05/07 [facility] Outpatient Encounter [id number] Ish TIAN 06/07 [facility] PRO PHONE CALL 11-20 MIN [id number] Diagnos is: ICD-10- CM F10.20 Alcohol depende nce, uncompl icated MARIE CLAROS 06/08 [facility]P EST MOD 30 MIN [id number] Diagnos is: ICD-10- CM F43.10 Post-tr aumatic stress disorde r, unspeci JEROMY Dorantes E 06/29 [facility] N [facility] Outpatient Encounter [id number] JAYLANIsh OSWALDO 07/25 [facility] PH1 ASSMT&MGMT NQHP 5-10 [id number] Diagnos is: ICD-10- CM F10.220 Alcohol depende nce with intoxic ation, uncompl icated Ish TIAN 07/25 [facility] SYNCH AUDIO-ONLY EST MOD 30 [id number] Diagnos is: ICD-10- CM F43.10 Post-tr aumatic stress disorde r, unspeci JEROMY Dorantes E 08/24 [facility] Outpatient Encounter [id number] 08/27 [facility] PSYTX W PT W E/M 30 MIN [id number] Diagnos is: ICD-10- CM F43.10 Post-tr aumatic stress disorde r, unspecJEROMY Bedoya E 11/08 [facility] Procedures Combined list of: 1) Procedures from Department of Veterans Affairs facilities going back up to thelast 18 months, not all VA non-surgical procedures are included; 2) All procedures from the Department of Defense facilities. Procedure Procedure Type Code Date Perfomer Comments Sourc e VARICELLA VIRUS VACCINE (LESLYE), LIVE, FOR SUBCUTANEOUS USE [facility] RE-EVAL,ATHLETIC TRAINING ESTAB PLAN OF CARE REQ:ASSES,CUR FUNC STAT WHEN DOC CHANGE;REV PLAN OF CARE,STAND,ASSESS INSTR &/LINDY ASSESS,FUNC OUTCOME W UPDATE,20 MIN [id number]-VQ-IYFH W THE PATIENT &/FAMILY [facility] FOOT, ARCH SUPPORT, REMOVABLE, PREMOLDED, LONGITUDINAL, EACH [facility] INFLUENZA VIRUS VACCINE, QUADRIVALENT (CCIIV4), DERIVED FROM CELL CULTURES, SUBUNIT, PRESERVATIVE AND ANTIBIOTIC FREE, 0.5 ML DOSAGE, FOR INTRAMUSCULAR USE [facility] FITTING OF SPECTACLES, EXCEPT FOR APHAKIA; MONOFOCAL [facility] EAR MOLD/INSERT, NOT DISPOSABLE, ANY TYPE [facility] PSYCHIATRIC DIAGNOSTIC EVALUATION [facility] PSYCHIATRIC DIAGNOSTIC EVALUATION [facility] TELE ASSESS & MGT SRV PROV QUAL NONPHYS HLTH CARE PRO TO EST PAT,PARENT,GUARD NOT ORIG REL ASSESS & MGT SRV PROV W/IN PREV 7 DAYS NOR LEAD ASSESS & MGT SRV/PX W/IN NXT 24 HR/SOON APT;5-10 MIN MED DIS [facility] AUDIOMETRIC TESTING OF GROUPS [facility] IMMUNIZATION ADMINISTRATION (INCLUDES PERCUTANEOUS, INTRADERMAL, SUBCUTANEOUS, OR INTRAMUSCULAR INJECTIONS); 1 VACCINE (SINGLE OR COMBINATION VACCINE/TOXOID) [facility] TELE ASSESS & MGT SRV PROV QUAL NONPHYS HLTH CARE PRO TO EST PAT,PARENT,GUARD NOT ORIG REL ASSESS & MGT SRV PROV W/IN PREV 7 DAYS NOR LEAD ASSESS & MGT SRV/PX W/IN NXT 24 HR/SOON APT;5-10 MIN MED DIS [facility] TELE ASSESS & MGT SRV PROV QUAL NONPHYS HLTH CARE PRO TO EST PAT,PARENT,GUARD NOT ORIG REL ASSESS & MGT SRV PROV W/IN PREV 7 DAYS NOR LEAD ASSESS & MGT SRV/PX W/IN NXT 24 HR/SOON APT;5-10 MIN MED DIS [facility] PSYCHOLOGICAL TSTING (INCL PSYCHODIAG ASSESSMNT, EMOTITY, INTELLECTUAL ABILITIES, PERSONALITY &PSYCHOPATHOLOGY, EG, MMPI), ADMINISTERED COMPUTER, W QUALIFIED 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 INTERPRET &RPT 018 [facility] Audiometry Group Testing Audiometry Group Testing 18652 MANUEL BASURTO [facility] Venipuncture Venipuncture 51769 YESSENIA LEE [facility] RBC G6PD Screening RBC G6PD Screening 42020 02/02 YESSENIA LEE [facility] Td Vaccine Seven Years Of Age And Above Preservative Free Td Vaccine Seven Years Of Age And Above Preservative Free 67474 YESSENIA LEE [facility] Immunization Administration Each Additional Vaccine Immunization Administration Each Additional Vaccine 31842 YESSENIA LEE [facility] Immunization Administration One Vaccine Immunization Administration One Vaccine 64917 YESSENIA LEE [facility] Preventive Med Standardized Depre ion Screening: Negative For Symptoms Preventive Med Standardized Depression Screening: Negative For Symptoms [id number] YESSENIA LEE During a jitv-ch-dhvz encounter, I personally reviewed the responses given on the PHQ8 or the SAT by the individual RICHARD [employer] which were recorded by the individual on the [facility] website or the required hardcopy SAT. [facility] Non-Physician Phone Call To Patient/Provider Brief (5-10min) Non-Physician Phone Call To Patient/Provider Brief (5-10min) 02271 018 SARA MACK [facility] Psychologic Testing And Report Administered By Computer Psychologic Testing And Report Administered By Computer [id number] 018 KEVIN CATES [facility] Non-Physician Phone Call To Patient/Provider Brief (5-10min) Non-Physician Phone Call To Patient/Provider Brief (5-10min) 70099 018 SARA MACK [facility] Vaccines Viral Varicella (Active) Vaccines Viral Varicella (Active) 28566 018 MESHA GOMEZ [facility] Immunization Administration One Vaccine Immunization Administration One Vaccine 12637 018 MESHA GOMEZ [facility] Immunization Administration Each Additional Vaccine Immunization Administration Each Additional Vaccine 23036 018 MESHA GOMEZ [facility] Athletic Training Re-evaluation Athletic Training Re-evaluation 08139 018 CIARA KEMP [facility] Exercises A isted Exercises For ROM Exercises Assisted Exercises For ROM 79748 CIARA KEMP [facility] Foot, arch support, removable, premolded, longitudinal, each CIARA KEMP [facility] Physical Therapy Education Orthotics Training Physical Therapy Education Orthotics Training 33169 VIRIDIANACIARA [facility] Vaccines Viral Varicella (Active) Vaccines Viral Varicella (Active) 50119 018 [facility] Immunization Admin Intranasal / Oral Each Additional Vaccine Immunization Admin Intranasal / Oral Each Additional Vaccine 44588 018 [facility] Vaccines Adenovirus Type 4 Live, For Oral Use Vaccines Adenovirus Type 4 Live, For Oral Use 15118 018 [facility] Vaccines Adenovirus Type 7 Live, For Oral Use Vaccines Adenovirus Type 7 Live, For Oral Use 16516 018 [facility] Immunization Administration Each Additional Vaccine Immunization Administration Each Additional Vaccine 67625 018 [facility] Vaccines Viral Polio, Inactivated (Salk) Vaccines Viral Polio, Inactivated (Salk) 89474 018 [facility] Tdap Vaccine Tdap Vaccine 94070 018 [facility] Immunization Administration One Vaccine Immunization Administration One Vaccine 05165 018 [facility] Determination Of Refractive State Determination Of Refractive State 31987 018 VLAD CHEATHAM [facility] Spectacles Services Fitting Monofocals (Not For Aphakia) Spect[employer] Services Fitting Monofocals (Not For Aphakia) 26143 018 VLAD CHEATHAM Ophthalmological New Patient Start Intermediate Level Care Ophthalmological New Patient Start Intermediate Level Care 86423 018 VLAD CHEATHAM [facility] Non-Physician Phone Call To Patient/Provider Brief (5-10min) Non-Physician Phone Call To Patient/Provider Brief (5-10min) 55444 REY MAN [facility] Psychiatric Evaluation Psychiatric Evaluation 67277 ALYCIA MCGUIRE [facility] Psychiatric Therapy Preparation of Psychiatric Status Report Psychiatric Therapy Preparation of Psychiatric Status Report 75730 ALYCIA MCGUIRE [facility] Social History Combined list of available smoking, tobacco, and other social history from Department of Defense and Veterans Affairs facilities. Social History Type Response Date Comment Sourc e This section is an empty social history section. [employer]D
--- OUTSIDE RECORDS SUMMARY | 2025-01-14 04:40 | XMS_ITS | Clinical Summary ---
Author Organization [facility] Address [address] [place] [address] Phone Care Team Providers Care [employer] On [employer]ging Director Name Role Phone Provider, None Primary Care [...] = 0.6 oz pur e alcohol) pint/daily [facility] Utilities Answer Date Recorded In the [...] place to sleep or slept in a [facility] (including now)? Patient declined 12/02/2023 Comments Unknown [...] the quiroga. rn were notified Temperature 36.9 C (98.5 F) 12/06/2023 2:00 PM CDT Respiratory Rate 20 12/06/2023 2:00 PM CDT Oxygen Saturation 100% 12/06/2023 2:0 0 PM CDT Inhaled Oxygen Concentration - - Weight 65.8 kg (145 lb) 12/02/2023 3:51 PM CDT Height 176.5 cm (5' 9.5) 12/02/2023 3: 51 PM CDT Body Mass Index 21.11 12/02/2023 3:51 PM CDT Plan of Treatment Health Maintenance Due Date Last Done Comments Hepatitis C Virus (HCV) Screening 1995 Pap Smear 2016 SARS-COV-2 Immunization ( season) 2024 05/27/2021 Influenza Immunization (#1) 2025 02/0 09/2020, 04/21/2019, 03/16/2019, Additional history exists Respiratory Syncytial Virus (RSV) Immunization (Adult) (1 - 1-dose 75+ series) 2070 Human Papillomavirus (HPV) Immunization Completed 04/21/2010, 09/26/2009 Meningococcal Immunization (ACWY) Aged Out 09/30/2017, 09/26/2009 [...] measures to stabilize the patient. Care Teams [employer] On Aging Director Relationship Specialty Start Date End Date Provider, None [place] PCP - General 12/02/23
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
--- OUTSIDE RECORDS SUMMARY | 2025-01-14 04:40 | XMS_ITS ---
Author Organization Unknown Plan of Treatment Description Planned Activity Planned Timing [facility] is a provider organization who partners directly with Health Plans and provides integrated primary care, behavioral health, and social group worker for an attributed population Letter encounter to patientTelephone encounter Dec 27, 2024Jul 2024 Patient Care team information Name Category Status Period Participants - - Proposed period not known -
--- OUTSIDE RECORDS SUMMARY | 2025-01-14 04:40 | XMS_ITS | Encounter Summary ---
Author Name [facility] [place] Organization [facility] Address [address] [place] [address] Support Name Relationship Address Phone KING GUNDERSON Next of Kin [address] [facility] [place] [address] KING GUNDERSON Emergency Contact [address] [place] [address] PRATIK DOSS Next of Kin [address] [place], [place] [id number] PRATIK DOSS Emergency Contact [address] [place], [place] [id number] Selected Encounter This section includes the information on record at [place] for the Encounter. Date/Time Encounter Type Encounter Description Reason Provider Source Apr 06, 2024 08:03 AM Outpatient Encounter GENERAL INTERNAL MEDICINE TEVIN ANTONIO Melinda Encounter Template Text not used by [place] Plan of Treatment: Future Appointments (+ 6 months) and Future Tests (+/- 45 days) The Plan of Treatment section includes future care activities for the patient from all [place] treatmentfacilities. This section includes future appointments and future orders which are active, pending or scheduled. Future Appointments This section includes appointments that were scheduled to occur 6 months from the date of the Encounter, up to a maximum of 20 appointments. The data comes from all [place] treatment facilities. Appointment Date/Time Appointment Type Appointme nt Facility Name May 04, 2024 11:00 AM AMBULATORY - PSYCHIATRY [facility] Jun 29, 2024 03:00 PM AMBULATORY - PSYCHIATRY [facility] Aug 24, 2024 02:30 PM AMBULATORY - PSYCHIATRY [facility] Encounter Notes: All associated encounter notes This section contains the clinical notes associated to the Encounter. Date/Time Encounter Note(s) Provider Source Apr 10, 2024 09:28 AM ADDENDUM: LOCAL TITLE: Addendum STANDARD TITLE: ADDENDUM DATE OF NOTE: APR 10, 2024@09:28:59 ENTRY DATE: APR 10, 2024@09:29 AUTHOR: RIOS CALL EXP COSIGNER: URGENCY: STATUS: COMPLETED DC summary with vitals, labs, meds received via Rightfax, no narrative DC summary included. Contacted Suzanne Arias at [facility], who states that MD did not create a narrative DC summary. Per Suzanne, patient was admitted to ICU from ED for ETOH level, then left AMA. Alerting PCP team to this note for continuity of care. /bernardo/ RIOS CALL REGISTERED NURSE Signed: 04/10/2024 09:29 Receipt Acknowledged By: 04/25/2024 14:44 /bernardo/ OLAMIDE RAY, RN MSN, [facility] ====== --- Original Document --- 03/26/24 [facility] CARE-[facility]AND[facility] SELF PRESENTING CARE COORD PLAN [address]: Emergency Notification Intake Date Presenting to the Facility: Mar Method of Contact: Submitted to Centralized Call Center Notification ID: [id number] [facility] Referral #: [facility] Care Coordination [facility] Name: Hospital: [facility] Address: City: [place] State: [place] Zip Code: Phone : Community Facility Point of Contact: Name: Phone: Chief complaint: VCL - ACUTE SUICIDAL CRISIS EVENT Primary Diagnosis: Disposition Unknown at time of intake note entry FAXED FOR RECORDS TO BE OBTAINED; VET WAS ALREADY ALERTED TO SUICIDE CHAT ON 04/04keith QUIÑONEZ RN REGISTERED NURSE Signed: 04/06/2024 08:09 Receipt Acknowledged By: 04/20/2024 17:52 /bernardo/ OLAMIDE RAY, RN MSN, [facility] 04/10/2024 ADDENDUM STATUS: COMPLETED ER note sent to [facility] for scanning. No inpatient notes or DC summary received. Documents requested. [facility] Team is currently coordinating patient care r/t this EOC. /keith CALL REGISTERED NURSE Signed: 04/10/2024 08:56 04/11/2024 ADDENDUM STATUS: COMPLETED Narrative admit H&P received via RightFax. Records sent to [facility] for expedited upload. [facility] alerted for eligibility review. /keith CALL REGISTERED NURSE Signed: 04/11/2024 12:19 RIOS CALL [facility] Mar 26, 2024 08:03 AM NONVA NOTE: LOCAL TITLE: [facility] C[facility]-BRANDT SELF PRESENTING CARE COORD PLAN STANDARD TITLE: NONVA NOTE DATE OF NOTE: MAR 26, 2024@08:03 ENTRY DATE: APR 06, 2024@08:03:38 AUTHOR: JAYRO ANTONIO EXP COSIGNER: URGENCY: STATUS: COMPLETED [facility] CARE-BRANDT SELF PRESENTING CARE COORD PLAN [address] Has ADDENDA Emergency Notification Intake Date Presenting to the Facility: Mar Method of Contact: Submitted to Centralized Call Center Notification ID: [id number] [facility] Referral #: [facility] Care Coordination [facility] Name: Hospital: [facility] Address: City: [place] State: [place] Zip Code: Phone : [facility] Facility Point of Contact: Name: Phone: Chief complaint: VCL - ACUTE SUICIDAL CRISIS EVENT Primary Diagnosis: Disposition Unknown at time of intake note entry FAXED FOR RECORDS TO BE OBTAINED; VET WAS ALREADY ALERTED TO SUICIDE CHAT ON 04/04keith QUIÑONEZ RN REGISTERED NURSE Signed: 04/06/2024 08:09 Receipt Acknowledged By: 04/20/2024 17:52 /bernardo/ OLAMIDE RAY, RN MSN, [facility] 04/10/2024 ADDENDUM STATUS: COMPLETED ER note sent to [facility] for scanning. No inpatient notes or DC summary received. Documents requested. [facility] Team is currently coordinating patient care r/t this EOC. /keith CALL REGISTERED NURSE Signed: 04/10/2024 08:56 04/10/2024 ADDENDUM STATUS: COMPLETED DC summary with vitals, labs, meds received via Rightfax, no narrative DC summary included. Contacted Suzanne Arias at [facility], who states that MD did not create a narrative DC summary. Per Suzanne, patient was admitted to ICU from ED for ETOH level, then left AMA. Alerting PCP team to this note for continuity of care. /bernardo/ RIOS CALL REGISTERED NURSE Signed: 04/10/2024 09:29 Receipt Acknowledged By: * AWAITING SIGNATURE * MICHAEL SUAZO 04/11/2024 ADDENDUM STATUS: COMPLETED Narrative admit H&P received via RightFax. Records sent to [facility] for expedited upload. [facility] alerted for eligibility review. /keith CALL REGISTERED NURSE Signed: 04/11/2024 12:19 JAYRO ANTONIO [facility]
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
[2025-01-14 04:46] LABS: Hematocrit 33.5 % (37.0-47.0); Hemoglobin 10.8 g/dL (12.0-15.0); Immature Granulocyte Percent A 0.0 % (0-0.5); Lymphocytes Absolute Auto 2.31 K/mm3 (0.9-3.2); Mean Corpuscular HGB Conc 32.2 g/dl (32-36); Mean Corpuscular Hemoglobin 23.1 pg (26-34); Mean Corpuscular Volume 71.6 fl (80-100); Nucleated Red Blood Cells Absolute Auto 0.000 K/mm3 (0.0-0.012); Nucleated Red Blood Cells Perc 0.0 % (0.0-0.2); Platelet Count Result 241 k/mm3 (150-375); Red Blood Count 4.68 M/mm3 (4.2-5.4); White Blood Count 5.2 K/mm3 (4.5-10.0)
[2025-01-14 04:57] LABS: Acetaminophen < 10 ug/mL (10-30); Salicylate < 1.0 mg/dL (2-20)
[2025-01-14 05:04] LABS: Alanine Aminotransferase 19 U/L (6-35); Albumin Level 4.4 g/dL (3.5-5.1); Alkaline Phosphatase 65 U/L (38-126); Anion Gap 12 mmol/L (4-12); Aspartate Amino Transferase 36 U/L (14-36); Bilirubin,Total 0.3 mg/dL (0.2-1.3); Blood Urea Nitrogen 3 mg/dL (7-17); Calcium 9.4 mg/dL (8.4-10.2); Carbon Dioxide 19 mmol/L (22-30); Chloride 106 mmol/L (98-107); Estimated CRCL calculation 113 ml/min; Estimated Glomerular Filt Rate > 60; Glucose 91 mg/dL (65-110); Magnesium 2.1 mg/dL (1.6-2.3); Potassium 3.7 mmol/L (3.4-5.0); Sodium 137 mmol/L (137-145); Total Protein 8.2 g/dL (6.3-8.2)
[2025-01-14 05:10] LABS: Anisocytosis 1+; Hypochromasia 1+; Ovalocytes 2+; Poikilocytosis 1+
[2025-01-14 05:11] LABS: Schistocytes None Seen
--- NOTE | 2025-01-14 05:12 | PC.NURSE ---
This RN assumed care of patient at this time when patient was moved from room 2 to room 14. Report received from LASHAE Palacios. Patient on bed alarm and on monitor. This RN spoke with ERP and ERP states she does not need a sitter at this time and does not need to be in green scrubs. Patient is denying any SI/HI at this time but that she 'suffers from SI/HI'. Patient has seizure precautions in place.
--- NOTE | 2025-01-14 05:34 | ED.ALCOHOL ---
HPI - Alcohol General Chief Complaint: Psychiatric Symptoms Stated Complaint: ETOH W/D Time Seen by Provider: 01/14/25 04:26 History of Present Illness HPI narrative: Patient is a 29-year-old female who presents to the emergency department this evening due to concern for alcohol withdrawal. Admits that she does have a history of anxiety, depression and alcoholism. Patient states that she does have these binge drinking episodes but she is normally good about weaning herself off to prevent going into alcohol withdrawal. States that this binge started on Tuesday and lasted until yesterday, Tuesday at 9:00 p.m.. Patient states that her last drink was at 9:00 p.m.. She states that usually when she is about to go into alcohol withdrawal her symptoms are feeling fuzzy, tingling in her extremities and tremors and nausea. Patient states that shortly prior to arrival she started to have the symptoms and she called 911. On route to the ED, EMS did administer 4 mg of IV Zofran for her nausea. Patient states that in the past she has suffered from suicidal and homicidal ideations secondary to her depression, however, at this point in time she is currently not suicidal and not homicidal. Related Data Allergies Allergy/AdvReac Type Severity Reaction Status Date / Time No Known Allergies Allergy Verified 08/04/24 06:58 Review of Systems Review of Systems: All systems are reviewed and are negative unless stated otherwise in the HPI. [facility] Past Medical History Medical History Alcohol abuse PTSD (post-traumatic stress disorder) Alcoholism Social History Social History Smoking status: Current every day smoker Tobacco type: e-cigarettes/vaping Alcohol intake: current Drinks per week: 30 Substance use: current Substance use type: marijuana Do You Feel Safe in your Home?: Yes Lack of Transportation: No Lack of Food: Never True Current Housing: I Have Housing Concerned About Future Housing: No Difficulty Paying Gas/Electric Bills: No Difficulty Paying for Meds: No Currently Unemployed: No Education: High School Diploma/GED Difficulty w/ Childcare or Family Care: No Living arrangements: alone Occupation/Education: unemployed Sexual Orientation (if Verbalized by the Patient): Lesbian, Gordon, or Homosexual Spiritual care concerns: No Exam Narrative: General: Alert, awake, afebrile, in no acute distress. HEENT: PERRL, no rhinorrhea, no post nasal drip, oropharynx clear. Neck: Trachea midline, no JVD, no lymphadenopathy. Cardiovascular: Regular rate and rhythm, no murmurs, rubs or gallops, no peripheral edema. Respiratory: Clear to auscultation bilaterally, no tachypnea, no wheezing, no rhonchi, no rubs, no respiratory distress. Abdomen: Soft, nontender, nondistended, no rebound, no guarding, no peritoneal signs. Musculoskeletal: No joint swelling or deformity, normal muscle tone. Skin: No rashes or petechia, no signs of infection. Psychiatric: Alert and oriented, normal behavior and judgment for situation. Neurological: Alert and oriented to person, place, and time. Follows all commands. No focal deficits, speech is clear and fluent. Course Vital Signs Vital signs: Vital Signs Temperature 98.4 F 01/14/25 04:20 Pulse Rate 91 01/14/25 04:20 Respiratory Rate 17 01/14/25 04:20 Blood Pressure 109/86 01/14/25 04:20 Pulse Oximetry 100 01/14/25 04:20 Oxygen Delivery Room Air 01/14/25 04:20 Temperature 98.4 F 01/14/25 04:20 Pulse Rate 82 01/14/25 05:30 Respiratory Rate 20 01/14/25 05:30 Blood Pressure 112/76 01/14/25 05:15 Pulse Oximetry 97 01/14/25 05:30 Oxygen Delivery Room Air 01/14/25 04:20 MDM - Alcohol MDM Narrative Medical decision making narrative: The patient was evaluated by myself in the emergency department. History is obtained from patient who is an independent historian and physical exam was performed. External medical records were reviewed at this time. IV was established and pertinent tests were ordered. Patient was administered 1 L IV fluid bolus with normal saline and 2 mg of IV Ativan for CIWA score of 14. Laboratory results obtained revealing no acute process. Urinalysis is currently pending. Differential diagnosis considerations include alcohol withdrawal, alcohol intoxication, depression, anxiety. Comorbidities impacting this visit include history of alcohol abuse. I have evaluated and discussed social determinants of health with the patient that could potentially impact subsequent diagnosis and treatment plans. On repeat assessment of the patient, reevaluation revealed that the patient is doing well and is in no acute distress. Patient symptoms have improved since she arrived to our emergency department. Repeat vital signs were all reviewed and noted to be stable. Differential diagnosis and treatment plan were discussed with the patient at bedside. Patient agrees with discussion and after shared medical decision making agrees with admission. All questions were answered to the patient's satisfaction. Case discussed with the on-call hospitalist Dr. Baron at 0530 he accepted admission to IMU. Lab Data 01/14/25 04:38 01/14/25 04:38 Labs: Lab Results 01/14/25 Range/Units 04:38 WBC 5.2 (4.5-10.0) K/mm3 RBC 4.68 (4.2-5.4) M/mm3 Hgb 10.8 L (12.0-15.0) g/dL Hct 33.5 L (37.0-47.0) % MCV 71.6 L (80-100) fl MCH 23.1 L (26-34) pg MCHC 32.2 (32-36) g/dl RDW 15.4 H (11.5-14.5) % Plt Count 241 (150-375) k/mm3 MPV 10.3 (7.4-10.4) fl Immature Gran % (Auto) 0.0 (0-0.5) % Neut % (Auto) 43.7 L (45.5-73.1) % Lymph % (Auto) 44.1 (18.3-44.2) % Addison % (Auto) 7.4 (2.6-8.5) % Eos % (Auto) 4.0 (0-4.4) % Baso % (Auto) 0.8 (0.2-1.2) % Lymph # (Auto) 2.31 (0.9-3.2) K/mm3 Addison # (Auto) 0.4 (0.1-0.6) K/mm3 Eos # (Auto) 0.2 (0-0.3) K/mm3 Baso # (Auto) 0.0 (0.0-0.1) K/mm3 Abs Immat Gran (auto) 0.00 (0.00-0.031) K/mm3 Absolute Neuts (auto) 2.3 (1.3-6.7) K/mm3 Absolute Nucleated RBC 0.000 (0.0-0.012) K/mm3 Band Neutrophils % Not Reportable Nucleated RBC % 0.0 (0.0-0.2) % Platelet Estimate Adequate (Adequate) Hypochromasia 1+ Poikilocytosis 1+ Anisocytosis 1+ Ovalocytes 2+ Schistocytes None seen Sodium 137 (137-145) mmol/L Potassium 3.7 (3.4-5.0) mmol/L Chloride 106 (98-107) mmol/L Carbon Dioxide 19 L (22-30) mmol/L Anion Gap 12 (4-12) mmol/L BUN 3 L (7-17) mg/dL Creatinine 0.63 L (0.7-1.0) mg/dL Estim Creat Clear Calc 113 ml/min Estimated GFR > 60 (59 - ) Glucose 91 (65-110) mg/dL Calcium 9.4 (8.4-10.2) mg/dL Magnesium 2.1 (1.6-2.3) mg/dL Total Bilirubin 0.3 (0.2-1.3) mg/dL AST 36 (14-36) U/L ALT 19 (6-35) U/L Alkaline Phosphatase 65 (38-126) U/L Total Protein 8.2 (6.3-8.2) g/dL Albumin 4.4 (3.5-5.1) g/dL Salicylates < 1.0 L (2-20) mg/dL Acetaminophen < 10 L (10-30) ug/mL Ethyl Alcohol < 10 (<10) mg/dL Discharge Plan Discharge Clinical Impression: Alcohol withdrawal Qualifiers: Complication of substance-induced condition: uncomplicated Qualified Code(s): F10.930 - Alcohol use, unspecified with withdrawal, uncomplicated Patient Disposition: Still a Patient Condition: Improved Patient Language: Moroccan Prescriptions: No Action thiamine HCl (vitamin B1) 100 mg tablet 100 mg PO DAILY Qty: 30 0RF folic acid 1 mg tablet 1 mg PO DAILY Qty: 30 0RF chlordiazepoxide HCl 25 mg capsule 25 mg PO BID PRN (Reason: alcohol withdrawal) Qty: 30 0RF ondansetron 4 mg tablet,disintegrating 4 mg PO Q8H Qty: 20 0RF pantoprazole 40 mg tablet,delayed release (DR/EC) 40 mg PO HS Qty: 30 0RF chlordiazepoxide HCl 25 mg capsule 25 mg PO Q6H Qty: 15 0RF Rx Instructions: Day 1: take 2 caps every 6 hours, Day 2: take 1 cap every 6 hours, Day 3: take 1 cap every 12 hours, Day 4: take 1 cap at night, then discontinue prednisone 20 mg tablet 40 mg PO DAILY 5 Days Qty: 10 0RF Zyrtec 10 mg capsule 10 mg PO BID PRN (Reason: allergy symptoms) Qty: 20 0RF ondansetron 4 mg tablet,disintegrating 4 mg PO Q6H PRN (Reason: nausea and vomiting) Qty: 10 0RF Follow-up/Referrals: Johnny,MD Morgan [Primary Care Provider] - Time of Disposition: 05:37
--- NOTE | 2025-01-14 07:36 | ADMGEN ---
This patient, Nguyen Saleh, was admitted to IMU Room 206-02 at 0608 . Patient/family oriented to hospital policies and general routines including ID bracelet, bed and alarms, visiting hours, pain management, procedures, bathroom and other care routines, personal items, smoking policy, room service/diet, and visiting hours. Information on how to activate the Rapid Response Team has been discussed. Patient/Family are encouraged to report perceived risks to care and to ask questions if they do not understand what they are told or what they should do.
--- NOTE | 2025-01-14 08:35 | PC.NURSE ---
PATIENT WAS ALERT AND ORIENTED, DEMANDING TO LEAVE AMA.
--- OUTSIDE RECORDS SUMMARY | 2025-01-14 08:45 | XMS_ITS | Encounter Summary ---
Author Organization [facility] Healthcare Address [address] [place] [address] Care Team Providers Care Chicken Cutter Name Role Phone No, Physician Primary Care Provider [phone] Morgan Turner MD Primary Care Provider [phone] Ashish Morrow MD Unavailable [phone] Silvia Zhang MA Unavailable Unavailable Loida AburtoW Unavailable [phone] Encounter Details Date Type Department Care Team (Late st Contact Info) Description 01/16/2024 [facility] Post Discharge Follow up phone call [address] [address] Dhara Laughlin, RN Social History Tobacco Use Types Packs/Day Years Used Date Smoking Tobacco: Every Day Vaping Alcohol Use Standard Drinks/Week Comments Yes 0 (1 standard drink = 0.6 oz pur e alcohol) Pint of alcohol a day [facility] Utilities Answer Date Recorded In the past 12 months has th [employer] electric, gas, oil, or water company threatened [...] week 01/12/2024 How often do you attend [facility] or rastafari services? Never 01/12/2024 Do you belong to any clubs o r organizations such as holiness groups, unions, fraternal or athletic groups, or [...] things needed for daily living? Yes 01/12/2024 PHQ-9 Answer Date Recorded PHQ-9 Total Score 21 01/18/2024 Housing Stability Vital Sign Answer Derrick e Recorded In the last 12 months, was t here a time when you were not able to pay the mortgage or rent on time? No 01/12/2024 In the past 12 months, how m any times have you moved where you were living? 0 01/12/2024 At any time in the past 12 m [facility], were you homeless or living in a jail (including now)? 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 Will communicate with [facility]SU and ask them to call her. documented in this encounter Plan of Treatment Upcoming Encounters Date Type Department Care Team (Latest Contact Info) Description 03/05/2025 1:00 PM CDT Hospital Encounter [address] [address] Ashish Morrow MD [address] [place] [address] 03/05/2025 1:00 PM CDT - 03/05/2025 1:30 PM CDT Surgery [address] [address] Ashish Morrow MD [address] [place] [address] [place] [address] ESOPHAGOGASTRODUODENOSCOPY Scheduled Procedures Name Priority Associated Diagnoses Date/Ti wi ESOPHAGOGASTRODUODENOSCOPY Erosive esophagitis 03/05/2025 1:00 PM CDT documented as of this encounter Visit Diagnoses Not on filedocumented in this encounter Care Teams Chicken Cutter Relationship Specialty Start Date End Date No, Physician PCP - General 01/11/24 01/17/24 Morgan Turner MD [address] [place] [address] PCP - General Family Medicine 01/18/24 Ashish Morrow MD [address] [facility] [address] Consulting Physician Gastroenterology 06/09/24 Silvia Zhang, MERLE [address] [place] [address] [employer] Care Logistics Account Manager 07/24/24 07/24/24 Loida Aburto, PIVOT END POLISHER [address] [place] [address] Client Manager 07/25/24 09/06/24 documented as of this encounter
--- OUTSIDE RECORDS SUMMARY | 2025-01-14 08:45 | XMS_ITS | Clinical Summary ---
Author Organization [facility] Address [address] [place] [address] Care Team Providers Care Narrow Gauge Engineer Name Role Phone Unavailable Primary Care Provider Unavailabl e Source Comments [facility],non-owned Affiliates and Associated Physician Practices is amultiple site organization consisting of ambulatory clinics and hospital sitesin [place], [place], [place] and [place]. This disclosure is being madepursuant to the Care Everywhere program and may not contain all information available regarding this patient. Last updated 18.[facility] Allergies No known active allergies Medications * [...] housing, medical care, and heating? Hard 10/29/2022 [facility] [place] - Occupational Stress [...] place to sleep or slept in a prison (including now)? No 10/29/2022 Comments Unknown Sex and Gender Information Value Date Recorded Sex Assigned at Not on file Legal Sex Female 3:07 PM GOVERNMENT DOCUMENTS LIBRARIAN Gender Identity Not on file Sexual Orientation [...]
--- OUTSIDE RECORDS SUMMARY | 2025-01-14 08:45 | XMS_ITS | Encounter Summary ---
Author Organization [facility] Address [address] [place] [address] Care Team Providers Care Graduate Teaching Associate Name Role Phone Morgan Turner MD Primary Care Provider [phone] Ashish Morrow MD Unavailable [phone] Loida AburtoW Unavailable [phone] Encounter Details Date Type Department Care Team (Late st Contact Info) Description 07/25/2024 Telephone [facility] [address] [facility] [place] [address] Morgan Turner MD [address] [place] [address] Social History Tobacco Use Types Packs/Day Years Used Date Smoking Tobacco: Every Day Vaping Alcohol Use Standard Drinks/Week Comments Yes 0 (1 standard drink = 0.6 oz pur e alcohol) Pint of alcohol a day [facility] Utilities Answer Date Recorded In the past 12 months has [employer] electric, gas, oil, or water company threatened [...] often do you attend chur ch or sikh services? Never 07/25/2024 Do you belong to any clubs o r organizations such as anabaptism groups, unions, fraternal or athletic groups, or [...] things needed for daily living? Yes 07/25/2024 PHQ-9 Answer Date Recorded PHQ-9 Total Score [...] were you homeless or living in a nursing home (including now)? No 07/25/2024 Personal Safety Answer [...] on file Legal Sex Female 6:50 PM BUTTONHOLE MARKER Gender Identity Not on file Sexual Orientation Not on file documented as of this encounter Miscellaneous Notes * Telephone Encounter - Bridget Geiger - 07/25/2024 9:07 AM CST ONHOLE MARKER documented in this encounter Plan of Treatment Upcoming Encounters Date Type Department Care Team (Latest Contact Info) Description 03/05/2025 1:00 PM CDT Hospital Encounter [address] [address] Ashish Morrow MD [address] [place] [address] [place] [address] 03/05/2025 1:00 PM CDT - 03/05/2025 1:30 PM CDT Surgery [address] [address] Ashish Morrow MD [address] [place] [address] [place] [address] ESOPHAGOGASTRODUODENOSCOPY Scheduled Procedures Name Priority Associated Diagnoses Date/Ti ma ESOPHAGOGASTRODUODENOSCOPY Erosive esophagitis 03/05/2025 1:00 PM CDT documented as of this encounter Visit Diagnoses Not on filedocumented in this encounter Care Teams Graduate Teaching Associate Relationship Specialty Start Date End Date Morgan Turner MD [address] [place] [address] PCP - General Family Medicine 01/18/24 Ashish Morrow MD [address] [place] [address] [place] [address] Consulting Physician Gastroenterology 06/09/24 Loida Aburto, [address] [place] [address] Roll Filler 07/25/24 09/06/24 documented as of this encounter
--- OUTSIDE RECORDS SUMMARY | 2025-01-14 08:45 | XMS_ITS | Clinical Summary ---
Author Organization [facility] Address [address] [place] [address] Phone Care Team Providers Care Industrial Green Systems Designer Name Role Phone Provider, None Primary Care [...] = 0.6 oz pur e alcohol) pint/daily [facility] Utilities Answer Date Recorded In the [...] place to sleep or slept in a jail (including now)? Patient declined 12/02/2023 Comments Unknown [...] measures to stabilize the patient. Care Teams Industrial Green Systems Designer Relationship Specialty Start Date End Date Provider, None [place] PCP - General 12/02/23
--- OUTSIDE RECORDS SUMMARY | 2025-01-14 08:45 | XMS_ITS | Clinical Summary ---
Author Organization [facility] Address [address] [place] [id number] Care Team Providers Care Computer Terminal Operator Name Role Phone None, Provider MD Primary [...] complete this topic Insurance MEDICAID Care Teams Computer Terminal Operator Relationship Specialty Start Date End Date None, Provider, PCP - General 03/20/18
--- OUTSIDE RECORDS SUMMARY | 2025-01-14 08:46 | XMS_ITS | Referral Summary ---
Author Organization [facility] Address [address] [place] [address] Care Team Providers Care Pig Sticker Name Role Phone Morgan Turner MD Primary Care Provider [phone] Ashish Morrow MD Unavailable [phone] Encounters Date Type Department Care Team Description 01/08/2025 Telephone [facility] [address] [address] Morgan Turner MD 12/14/2024 Nurse Triage [facility] [address] [phone] Morgan Turner MD 12/11/2024 Telephone [facility] [address] [address] Morgan Turner MD Med Refill 12/11/2024 Telephone [facility] [address] [phone] Nena Souza MA Vivitrol Injection Re-Order 12/11/2024 9:15 AM CDT Clinical Support [facility] [address] [phone] Alcohol dependence with uncomplicated intoxication (HCC) (Primary Dx) 12/10/2024 Telephone [facility] [address] [phone] Morgan Turner MD Medical Question/Miscellane ous 12/10/2024 Telephone [facility] at [address] [place] [phone] Amelia Tolentinoelle 11/30/2024 Telephone [facility] G[facility] at [address] [place] [phone] Hailey Arango EGD Appointment 11/29/2024 Telephone [facility] [address] [phone] Morgan Turner MD Vivitrol Injection 11/08/2024 Telephone [facility] [address] [phone] Morgan Turner MD Vivitrol Injection Re-order 11/08/2024 1:00 PM CDT Clinical Support [facility] [address] [phone] Alcohol dependence with uncomplicated intoxication (HCC) (Primary Dx) 11/01/2024 Documentation [facility] [address] [place], [place] [phone] Jhon Dias 11/01/2024 1:45 PM CDT Office Visit [facility] [address] [phone] Morgan Turner MD Alcohol dependence with uncomplicated intoxication (HCC) (Primary Dx); Major depressive disorder with single episode, in partial remission; Generalized anxiety disorder; Erosive esophagitis 10/30/2024 Telephone [facility] G[facility]ology at [address] [place] [phone] Hailey Arango EGD Instructions 10/30/2024 Telephone [facility] [address] [phone] Morgan Turner MD Vititrol Injection from Last 3 Months Allergies Active Allergy Reactions Criticality Noted Date Comments Permethrin Hives Medium 08/08/2024 [place] odor spray [place]mercuate rodas Levonorgestrel-Ethinyl Estrad Vomiting Low 01/18/2024 Medications QUEtiapine (SEROquel) 25 mg tablet Take 1 tablet (25 mg total) by mouth nightly 4 Active naltrexone (DEPADE) 50 mg tablet Take 1 tablet (50 mg total) by mouth daily Active cetirizine 10 mg capsule Take 10 mg by mouth daily Active diphenhydrAMINE HCL 25 mg tablet,disintegrat ing Take 25 mg by mouth 2 (two) times a day Active acamprosate DR (CAMPRAL) 333 mg EC tabletIndications: alcoholism Take 2 tablets (666 mg total) by mouth 3 (three) times a day 180 tablet 5 Active naltrexone microspheres (VIVITROL) 380 mg suspension,extende d rel recon Inject 380 mg into the muscle as instructed every 30 (thirty) days 1.2 each [address] (CAMPRAL) 333 mg EC tablet TAKE 2 TABLETS(666 MG) BY MOUTH THREE TIMES DAILY 180 tablet 5 Active ondansetron ODT (ZOFRAN-ODT) 4 mg disintegrating tablet Take 1 tablet (4 mg total) by mouth 5 Active hydrOXYzine (ATARAX) 50 mg tablet Take 1 tablet (50 mg total) by mouth every 8 (eight) hours as needed 4 Active chlordiazePOXIDE (LIBRIUM) 25 mg capsule Take 1 capsule (25 mg total) by mouth 3 (three) times a day for 5 days, THEN 1 capsule (25 mg total) 2 (two) times a day for 5 days, THEN 1 capsule (25 mg total) daily for 5 days. 30 capsule 5 Active vitamin B-1 100 mg tabletIndications: PATIENT IS TAKING. Take 1 tablet (100 mg total) by mouth daily 90 tablet 3 5 026 Active folic acid (FOLVITE) 1 mg tablet Take 1 tablet (1 mg total) by mouth daily 90 tablet [address] (PROTONIX) 40 mg EC tabletIndications: GI Bleed,esophagitis Take 1 tablet (40 mg total) by mouth 2 (two) times a day 60 tablet 2 025 Active Hospital, Clinic, or Other Facility Administered Medication Ordered Dose Route Frequency Start Date End Date Status naltrexone microspheres (VIVITROL) intramuscular injection 380 mgIndications:Alcohol dependence with uncomplicated intoxication (HCC) 380 mg IM Every 30 days 02/16/2024 Act el naltrexone microspheres (VIVITROL) intramuscular injection 380 mgIndications:Alcohol dependence with uncomplicated intoxication (HCC) 380 mg IM Every 30 days 06/14/2024 Act el naltrexone microspheres (VIVITROL) intramuscular injection 380 mgIndications:Alcohol dependence with uncomplicated intoxication (HCC) 380 mg IM Every 30 days 07/26/2024 Act el naltrexone microspheres (VIVITROL) intramuscular injection 380 mgIndications:Alcohol dependence with uncomplicated intoxication (HCC) 380 mg IM Every 30 days 08/30/2024 Act el naltrexone microspheres (VIVITROL) intramuscular injection 380 mgIndications:Alcohol dependence with uncomplicated intoxication (HCC) 380 mg IM Every 30 days 10/03/2024 Act el naltrexone microspheres (VIVITROL) intramuscular injection 380 mgIndications:Alcohol dependence with uncomplicated intoxication (HCC) 380 mg IM Every 30 days 11/08/2024 Act el naltrexone microspheres (VIVITROL) intramuscular injection 380 mgIndications:Alcohol dependence with uncomplicated intoxication (HCC) 380 mg IM Every 30 days 12/11/2024 Act el Active Problems Problem Noted Date Diagnosed Date Erosive esophagitis 06/20/2024 Assessment & Plan (11/15/2024 6:07 PM CDT): Stable, well controlled, current symptoms are well controlled with current medications Continue pantoprazole 40 mg b.i.d.; encourage alcohol cessation Assessment & Plan (10/15/2024 2:52 PM CDT): Stable, no current symptoms, encouraged continued cessation from alcohol Continue pantoprazole 40 mg b.i.d. Assessment & Plan (08/20/2024 4:15 PM BUDGET OFFICER): Stable, generally well controlled, occasional episodes, generally gets relief on own Continue pantoprazole 40 mg b.i.d.; encourage avoidance of inciting substances including alcohol Hematemesis with nausea 06/08/2024 Upper GI bleed 06/07/2024 Chronic alcoholic gastritis 04/12/2024 Assessment & Plan (08/30/2024 4:37 PM BUDGET OFFICER): Not well controlled; continues to have some abdominal pain, nausea, decreased appetite well drinking alcohol Encourage alcohol cessation Continue pantoprazole 40 mg b.i.d. Assessment & Plan (07/23/2024 11:09 AM BUDGET OFFICER): Currently on pantoprazole. EGD scheduled in the summer. Assessment & Plan (07/17/2024 4:44 PM BUDGET OFFICER): Stable, well controlled; no current stomach pain, [...] cessation Homicidal ideations 01/18/2024 Mild bipolar disorder 01/18/2024 Assessment & Plan (08/30/2024 4:36 PM BUDGET OFFICER): Stable, well controlled; [facility]; continue quetiapine 25 mg nightly Assessment & Plan (08/20/2024 4:14 PM BUDGET OFFICER): Stable, generally well controlled, no recent episodes of depression or alban; follows with psychiatry and psychology Continue Seroquel 25 mg nightly Assessment & Plan (02/28/2024 4:04 PM CDT): Stable, well controlled; no current depressive or anxious symptoms; has some agitation associated with neighbors and stressors and current housing Patient follows closely with Psychiatry and individual counseling with [facility] Continue quetiapine 25 mg nightly Assessment & Plan (02/03/2024 1:28 PM CDT): Stable, patient has pressured speech; however otherwise appears fairly well controlled Continue Seroquel 25 mg nightly, hydroxyzine 50 mg p.r.n.; continue to follow with counseling and psychiatry services through [facility] Major depressive disorder, single episode, unspe cified 01/18/2024 Assessment & Plan (11/15/2024 6:06 PM CDT): Generally well controlled, patient reports she is in a better mood; is in regular contact with her significant other Follows with psychiatry in individual counseling through the [facility] Assessment & Plan (10/15/2024 2:51 PM CDT): Stable, follows with [facility]ry [facility] the [facility] for management Continue Seroquel 25 mg nightly, continue engagement with individual therapy Assessment & Plan (04/12/2024 3:12 PM CDT): [...] move soon based upon housing availability from A Posttraumatic stress disorder 01/18/2024 Assessment & Plan (02/28/2024 4:04 PM CDT): Anxiety is present all the time; still has some anger issues, but manages as able Continue hydroxyzine 50 mg p.r.n. Anxiety disorder, unspecified 01/18/2024 Assessment & Plan (11/15/2024 6:07 PM CDT): Stable, generally well controlled, patient reports counseling, psychiatry follow-up, may be moving which will provide a better living situation and decreased anxiety Chronic post-traumatic stress disorder Assessment & Plan (07/23/2024 11:11 AM BUDGET OFFICER): Has supportive friend and father. Encouraged working with counselor. Alcohol dependence with uncomplicated intoxicati on 01/11/2024 Assessment & Plan (11/15/2024 6:06 PM CDT): Stable, mixed control; patient has good relief of symptoms when using Vivitrol injections; but drinks between doses Patient also looking for a way to plan to drink for her upcoming girlfriend's birthday Continue Vivitrol monthly; 50 mg of naltrexone prn near end of month; continue acamprosate 660 mg t.i.d. May use Librium taper as needed for acute withdrawal Assessment & Plan (10/15/2024 2:51 PM CDT): Stable, improving; patient has been drinking for the past 5 days; last drink was day before, received naltrexone Vivitrol injections; doing better with no cravings at this time Encourage use of acamprosate 666 mg t.i.d. with Vivitrol to help better control cravings Encouraged complete cessation of alcohol given health concerns associated with alcohol including chronic gastritis Assessment & Plan (08/30/2024 4:36 PM BUDGET OFFICER): Not well controlled; patient reports drinking about 6-7 pt over the past 3 days; last drink was approximately 1 hour before appointment; will continue with Vivitrol; continue with individual counseling; will work with the patient to meet long- term goals of sobriety Patient may start Librium approximately 5-6 hours after last drink in order to help reduce risk of withdrawal Assessment & Plan (08/20/2024 4:14 PM BUDGET OFFICER): Not well controlled, not currently drinking, but has had severe cravings, patient has multiple episodes episodic binge drinking Patient had generally has good relief with the medication Continue Vivitrol every 30 days; acamprosate 666 mg t.i.d. Assessment & Plan (07/23/2024 11:11 AM BUDGET OFFICER): Will proceed to [facility] ED for Vivitrol injection today. Will return for her follow-up appointment in 10 days with PCP. Encouragement provided. Safety reviewed. Assessment & Plan (07/17/2024 4:43 PM BUDGET OFFICER): Stable, improving; no alcohol since last visit; due for injection on July 15, but would like to delay in order to allow for some alcohol use Discourage delay; would continue naltrexone monthly; add acamprosate 2 tablets t.i.d. Assessment & Plan (06/07/2024 4:51 PM BUDGET OFFICER): Not well controlled, can had recent relapse, [...] doing better at this time; engaged with chief engineer drilling and recovery; discussion with Peer chief engineer drilling and recovery today Encouraged continued work towards complete cessation [...] Alcoholic ketoacidosis 02/23/2023 Alcoholic intoxication without complication 02/02 Acute pancreatitis 10/29/2022 Immunizations Immunization Administration Dates Next Due Adenovirus 09/30/2017 DTP [...] e alcohol) Pint of alcohol a day [facility] Utilities Answer Date Recorded In the [...] often do you attend chur ch or zoroastrian services? Never 07/25/2024 Do you belong to any clubs o r organizations such as scientologist groups, unions, fraternal or athletic groups, or school groups? No 07/25/2024 How often do you attend meet ings of the clubs or organizations you belong to? Never 07/25/2024 Are you , , di vorced, , never , or living with a partner? Never 07/25/2024 AUDIT-C Answer Date Recorded Q1: How often do you have a drink containing alc ohol? Monthly or less 10/10/2024 Q2: How many drinks containi ng alcohol do you have on a typical day when you are drinking? 3 or 4 10/10/2024 Q3: How often do you have si x or more drinks on one occasion? Monthly 10/10/2024 Overall Financial Resource Strain (CARDIA) Answe r [...] any time in the past 12 m [facility], were you homeless or living in a residential (including now)? No 07/25/2024 Personal Safety Answer [...] on file Legal Sex Female 6:50 PM BUDGET OFFICER Gender Identity Not on file Sexual Orientation Not on file Last Filed Vital Signs Vital Sign Reading Time Taken Comments Blood Pressure 100/60 11/01/2024 1:49 PM CDT Pulse 84 11/01/2024 1:49 PM CDT Temperature 36.8 C (98.2 F) 11/01/2024 1:49 PM CDT Respiratory Rate 18 11/01/2024 1:49 PM CDT Oxygen Saturation 99% 11/01/2024 1:49 PM CDT Inhaled Oxygen Concentration - - Weight 68.5 kg (151 lb) 11/01/2024 1:49 PM CDT Height 175.3 cm (5' 9) 11/01/2024 1:49 PM CDT Body Mass Index 22.3 11/01/2024 1:49 PM CDT Plan of Treatment Upcoming Encounters Date Type Department Care Team (Latest Contact Info) Description 03/05/2025 1:00 PM CDT Hospital Encounter [facility] [address] [place] [address] Ashish Morrow MD [address] [place] [address] [address] [place] [address] 03/05/2025 1:00 PM CDT - 03/05/2025 1:30 PM CDT Surgery [facility] [address] [place] [address] Ashish Morrow MD [address] [facility] [address] [place] [address] ESOPHAGOGASTRODUODENOSCOPY Scheduled Procedures Name Priority Associated Diagnoses Date/Ti me ESOPHAGOGASTRODUODENOSCOPY Erosive esophagitis 03/05/2025 1:00 PM CDT Insurance Advance Directives For more information, please contact: [phone] * Full Code (Latest Code Status on File) Date Activated Date Inactivated Comments 06/09/2024 9:37 AM 06/09/2024 7:14 PM * Full Code Date Activated Date Inactivated Comments 06/08/2024 3:33 AM 06/09/2024 9:37 AM * Full Code Date Activated Date Inactivated Comments 01/11/2024 7:42 AM 01/13/2024 6:46 PM Care Teams Pig Sticker Relationship Specialty Start Date End Date Morgan Turner MD [address] [place] [address] PCP - General Family Medicine 01/18/24 Ashish Morrow MD [address] [place] [address] [place] [address] Consulting Physician Gastroenterology 06/09/24
--- OUTSIDE RECORDS SUMMARY | 2025-01-14 08:46 | XMS_ITS | Continuity of Care Document ---
Author Name [facility] Organization [facility] Care Team Providers Care On Site Coordinator Name Role Phone [facility] Unavailable Unavailable Problems Combined list of problems from Department of Defense and Veterans Affairs facilities. It does not include entries that were removed or entered in error. Problem Status Onset Date Problem Type Date of Resolution Comments Source Alcohol dependence, uncomplicated Active 8 Condition DoD Sprain of other ligament of right ankle Active 8 Condition [facility] Abnormal urine Active Condition [facility] Alcohol dependence Active Condition [facility] Chronic post-traumatic stress disorder Active Condition [facility] Housing instability Active Condition [facility] Mild bipolar disorder Active Condition [facility] Nicotine dependence Active Condition [facility] Posttraumatic stress disorder Active Condition [facility] Unsheltered homelessness Active Condition [facility] Diagnosis: ICD-10-CM F43.10 Post-traumatic stress disorder, unspecified Active Diagnosis [facility] Diagnosis: ICD-10-CM F10.220 Alcohol dependence with intoxication, uncomplicated Active Diagnosis [facility] Diagnosis: ICD-10-CM F10.20 Alcohol dependence, uncomplicated Active Diagnosis [facility] Diagnosis: ICD-10-CM Z59.89 Other problems related to housing and economic circumstances Active Diagnosis [facility] Diagnosis: ICD-10-CM Z78.9 Other specified health status Active Diagnosis [facility] Diagnosis: ICD-10-CM F43.12 Post-traumatic stress disorder, chronic Active Diagnosis [facility] Diagnosis: ICD-10-CM F10.239 Alcohol dependence with withdrawal, unspecified Active Diagnosis [facility] Diagnosis: ICD-10-CM F31.81 Bipolar II disorder Active Diagnosis [facility] Admit Reason: ALCOHOL DETOXIFICATION Active Diagnosis [facility] Diagnosis: ICD-10-CM Z71.89 Other specified counseling Active Diagnosis [facility] Diagnosis: ICD-10-CM Z59.9 Problem related to housing and economic circumstances, unsp Active Diagnosis [facility] Diagnosis: ICD-10-CM Z59.02 Unsheltered homelessness Active Diagnosis [facility] Diagnosis: ICD-10-CM F31.89 Other bipolar disorder Active Diagnosis [facility] Diagnosis: ICD-10-CM R45.851 Suicidal ideations Active Diagnosis [facility] Medications Combined list of outpatient medications from [...] FOR ASSISTAN CE WITH DEPENDEN CY 01/23/2024 [id number] 4 THA CHASE S 2023 5 [facility] CHLORDIAZEP OXIDE HCL 25MG CAP TAKE ONE CAPSULE BY MOUTH TWICE A DAY FOR 2 DAYS, THEN TAKE ONE CAPSULE ONCE A DAY FOR 1 DAY FOR ASSISTAN CE WITH DEPENDEN CY ORAL 01/23/2024 [id number] 4 BRIGIDO CHASE S 2023 5 [facility] HYDROXYZINE HCL 50MG TAB TAKE ONE TABLET BY MOUTH THREE TIMES A DAY NEEDED FOR ANXIETY *MAY CAUSE DROWSINE SS* ORAL ACTIVE 06/30/2025 [id number] 5 Dick RAO 2024 270 [facility] HYDROXYZINE HCL 50MG TAB TAKE ONE TABLET BY MOUTH THREE TIMES A DAY NEEDED FOR ANXIETY *MAY CAUSE DROWSINE SS* ORAL DISCONT INUED 02/03/2025 [id number] 4 Dick RAO E 2023 270 [facility] NALTREXONE (EQV-REVIA) 50MG TAB TAKE ONE TABLET BY MOUTH ONCE A DAY FOR ASSISTAN CE WITH DEPENDEN CY ORAL 01/23/2024 [id number] 4 BRIGIDO CHASE S 2023 30 [facility] Naltrexone Hydrochlori de (ReVia Eq.) Tablet 50 mg Oral TAKE ONE TABLET BY MOUTH ONCE A DAY FOR ASSISTAN CE WITH DEPENDEN CY 01/23/2024 [id number] 4 THA CHASE S 2023 30 [facility] Quetiapine (Seroquel Starter Pack) Tablet 25mg Oral TAKE ONE TABLET BY MOUTH AT BEDTIME 12/14/2024 [id number] 4 NITISH RAO E 2023 30 [facility] Quetiapine (Seroquel Starter Pack) Tablet 25mg Oral TAKE ONE TABLET BY MOUTH AT BEDTIME FOR SLEEP AND ANGER Discont inued 11/15/2024 [id number] 4 NITISH RAO E 2023 30 [facility] Quetiapine (Seroquel Starter Pack) Tablet 25mg Oral TAKE ONE TABLET BY MOUTH AT BEDTIME FOR SLEEP AND ANGER 11/15/2024 [id number] 4 NITISH RAO E 2023 30 [facility] QUETIAPINE FUMARATE 25MG TAB TAKE ONE TABLET BY MOUTH AT BEDTIME ORAL DISCONT INUED BY PROVIDE R 12/14/2024 [id number] 4 Dick RAO E 2023 30 [facility] QUETIAPINE FUMARATE 25MG TAB TAKE ONE TABLET BY MOUTH AT BEDTIME FOR SLEEP AND ANGER ORAL DISCONT INUED 11/15/2024 [id number] 4 MAIRADick TRIXIE E 2023 30 [facility] QUETIAPINE FUMARATE 50MG TAB TAKE ONE TABLET BY MOUTH AT BEDTIME FOR MOOD REGULATI ON ORAL ACTIVE 06/30/2025 [id number] 5 MAIRADickA TRIXIE E 2024 90 [facility] QUETIAPINE FUMARATE 50MG TAB TAKE ONE TABLET BY MOUTH AT BEDTIME FOR MOOD REGULATI ON ORAL DISCONT INUED 02/03/2025 [id number] 4 Dick RAO E 2023 90 [facility] THIAMINE 100MG TAB TAKE ONE TABLET BY MOUTH ONCE A DAY FOR 10 DAYS FOR VITAMIN B1 SUPPLEME NTATION ORAL 01/23/2024 [id number] 4 BRIGIDO CHASE S 2023 10 [facility] Thiamine 100mg, Tablet, Oral TAKE ONE TABLET BY MOUTH ONCE A DAY FOR 10 DAYS FOR VITAMIN B1 SUPPLEME NTATION 01/23/2024 [id number] 4 THA CHASE S 2023 10 [facility] Allergies, Adverse Reactions, Alerts Combined list of allergies from Department of Defense and Veterans Affairs facilities. It does not include entries that were removed or entered in error. Substance Category Reaction Severity Reaction type Status Date Reported Comments Source No Known Allergies Drug allergy (disorder) active 8 [facility] Immunizations Combined list of available immunizations from the Department of Defense and Veterans Affairs facilities. Immunization Series Date Given Administered By Site Reaction Lot Number CVX Code Drug [place] Status Comments Source Influenza, injectable, quadrivalent, preservative free 1 2018 [id number] 150 Seqirus (SEQ) complet ed Influenza , injectabl e, quadrival ent, preservat el free DoD Influenza, injectable, quadrivalent, preservative free 1 2018 [id number] 150 Seqirus (SEQ) comple t ed Influenza , injectabl e, quadrival ent, preservat el free [facility] hepatitis B vaccine, adult dosage 3 2018 [id number] [employer]Rock[employer] (SKB) complet ed hepatitis B vaccine, adult dosage DoD influenza, injectable, quadrivalent, contains preservative 1 2018 [id number] 158 Seqirus (SEQ) complet ed influenza , injectabl e, quadrival ent, contains preservat el DoD varicella virus vaccine 2 2017 [id number] Merck (MSD) complet ed varicella virus [...] ed DoD varicella virus vaccine 1 2017 [id number] 21 Merck (MSD) complet ed varicella virus vaccine DoD hepatitis B vaccine, adult dosage 1 2017 [id number] [employer] ([facility]) complet ed hepatitis B vaccine, adult dosage DoD hepatitis A vaccine, adult dosage 1 2017 UNK 52 Unknown (UNK) Not Given hepatitis A vaccine, adult dosage DoD meningococcal polysaccharid e (groups A, C, Y and W-135) diphtheria toxoid conjugate vaccine (MCV4P) 1 2017 [id number] Sanofi Pasteur ([facility]) complet ed meningoco ccal polysacch aride (groups A, C, Y and W-135) diphtheri a toxoid conjugate vaccine (MCV4P) DoD tetanus toxoid, reduced diphtheria toxoid, and acellular pertu is vaccine, adsorbed 1 2017 [id number] [employer] (SKB) complet ed tetanus toxoid, reduced diphtheri a toxoid, and acellular pertussis vaccine, adsorbed DoD Adenovirus, type 4 and type 7, live, oral 1 2017 [id number] 143 [facility] ([facility]) complet ed Adenoviru s, type 4 and type 7, live, oral DoD Influenza, injectable, Madin Maury Canine Kidney, quadrivalent with preservative 1 2017 [id number] 186 Seqirus (SEQ) comple t ed Influenza , injectabl e, Madin Maury Canine Kidney, quadrival ent with preservat el DoD Results Combined list of recent chemistry, hematology and other laboratory results from Department of Defense and Veterans Affairs, ranging from 15 months to all on record, depending upon the facility. Order Name Results Value Reference Range Date Interpretation Specimen Comments Source CBC LEUKOCYTES [#/VOLUME] IN BLOOD BY AUTOMATED COUNT 6.3 10*3/uL 3.6 - 11.2 12/22 Specimen Type: BLOOD No comment entered. Ordering Provider: MICKI COTTER AR Report Released Date/Time: Dec 23, 2023 04:13 PM Reporting Lab: [facility] [address] [place] [address] Performing Lab: [facility] [address] [place] [address] CBC ERYTHROCYT ES [#/VOLUME] IN BLOOD BY AUTOMATED COUNT 4.72 10*6/uL 3.60 - 5.00 12/22 Specimen Type: BLOOD No comment entered. Ordering Provider: MICKI COTTER AR Report Released Date/Time: Dec 23, 2023 04:13 PM Reporting Lab: [facility] [address] [place] [phone] Performing Lab: [facility] [address] [place] [address] CBC HEMOGLOBIN [MASS/VOLU ME] IN BLOOD 11.8 g/dL 11.0 - 14.9 12/22 Specimen Type: BLOOD No comment entered. Ordering Provider: MICKI COTTER AR Report Released Date/Time: Dec 23, 2023 04:13 PM Reporting Lab: [facility] [address] [place] [phone] Performing Lab: [facility] [address] [place] [address] [facility] CBC HEMATOCRIT [VOLUME FRACTION] OF BLOOD 36.7 32.6 - 43.4 12/22 Specimen Type: BLOOD No comment entered. Ordering Provider: MICKI COTTER AR Report Released Date/Time: Dec 23, 2023 04:13 PM Reporting Lab: [address] [address] Performing Lab: [address] [address] [facility] CBC MCV [ENTITIC VOLUME] BY AUTOMATED COUNT 77.8 fL 80.0 - 100.0 12/22 L Specimen Type: BLOOD No comment entered. Ordering Provider: MICKI COTTER Report Released Date/Time: Dec 23, 2023 04:13 PM Reporting Lab: [address] [address] Performing Lab: [address] [address] [facility] CBC MCH [ENTITIC MASS] BY AUTOMATED COUNT 25.0 pg 27.0 - 34.0 12/22 L Specimen Type: BLOOD No comment entered. Ordering Provider: MICKI COTTER Report Released Date/Time: Dec 23, 2023 04:13 PM Reporting Lab: [address] [address] Performing Lab: [address] [address] [facility] CBC MCHC [MASS/VOLU ME] BY AUTOMATED COUNT 32.2 g/dL 33.0 - 36.0 12/22 L Specimen Type: BLOOD No comment entered. Ordering Provider: MICKI COTTER AR Report Released Date/Time: Dec 23, 2023 04:13 PM Reporting Lab: [address] [address] Performing Lab: [address] [address] [facility] CBC PLATELETS [#/VOLUME] IN BLOOD BY AUTOMATED COUNT 309 10*3/uL 150 - 400 12/22 Specimen Type: BLOOD No comment entered. Ordering Provider: IMCKI COTTER AR Report Released Date/Time: Dec 23, 2023 04:13 PM Reporting Lab: [facility] [address] [facility] [address] Performing Lab: [facility] [address] [place] [phone] [facility] CBC PLATELET MEAN VOLUME [ENTITIC VOLUME] IN BLOOD BY AUTOMATED COUNT 10.3 fL 7.5 - 11.2 12/22 Specimen Type: BLOOD No comment entered. Ordering Provider: MICKI COTTER Report Released Date/Time: Dec 23, 2023 04:13 PM Reporting Lab: [address] [address] Performing Lab: [address] [address] [facility] CBC ERYTHROCYT E DISTRIBUTI ON WIDTH [RATIO] BY AUTOMATED COUNT 17.3 11.8 - 15.1 12/22 H Specimen Type: BLOOD No comment entered. Ordering Provider: MICKI COTTER AR Report Released Date/Time: Dec 23, 2023 04:13 PM Reporting Lab: [address] [address] Performing Lab: [address] [address] [facility] CBC LYMPHOCYTE S/100 LEUKOCYTES IN BLOOD BY AUTOMATED COUNT 58 12/22 Specimen Type: BLOOD No comment entered. Ordering Provider: MICKI COTTER Report Released Date/Time: Dec 23, 2023 04:13 PM Reporting Lab: [place] [address] [facility] [address] Performing Lab: [facility] [address] [place] [address] [facility] CBC MONOCYTES/ 100 LEUKOCYTES IN BLOOD BY AUTOMATED COUNT 6 12/22 Specimen Type: BLOOD No comment entered. Ordering Provider: MICKI COTTER AR Report Released Date/Time: Dec 23, 2023 04:13 PM Reporting Lab: [facility] [address] [facility] [address] Performing Lab: [facility] [address] [facility] [address] [facility] CBC NEUTROPHIL S/100 LEUKOCYTES IN BLOOD BY AUTOMATED COUNT 32 12/22 Specimen Type: BLOOD No comment entered. Ordering Provider: MICKI COTTER AR Report Released Date/Time: Dec 23, 2023 04:13 PM Reporting Lab: [facility] [address] [facility] [address] Performing Lab: [facility] [address] [facility] [address] [facility] CBC EOSINOPHIL S/100 LEUKOCYTES IN BLOOD BY AUTOMATED COUNT 2 12/22 Specimen Type: BLOOD No comment entered. Ordering Provider: MICKI COTTER Report Released Date/Time: Dec 23, 2023 04:13 PM Reporting Lab: [facility] [address] [facility] [address] Performing Lab: [facility] [address] [facility] [address] [facility] CBC BASOPHILS/ 100 LEUKOCYTES IN BLOOD BY AUTOMATED COUNT 1 12/22 Specimen Type: BLOOD No comment entered. Ordering Provider: MICKI COTTER AR Report Released Date/Time: Dec 23, 2023 04:13 PM Reporting Lab: [place] [address] [facility] [address] Performing Lab: [facility] [address] [facility] [address] [facility] CBC LYMPHOCYTE S [#/VOLUME] IN BLOOD BY AUTOMATED COUNT 3.67 10*3/uL 0.77 - 4.50 12/22 Specimen Type: BLOOD No comment entered. Ordering Provider: MICKI COTTER AR Report Released Date/Time: Dec 23, 2023 04:13 PM Reporting Lab: [facility] [address] [facility] [address] Performing Lab: [facility] [address] [facility] [address] [facility] CBC MONOCYTES [#/VOLUME] IN BLOOD BY AUTOMATED COUNT 0.39 10*3/uL 0.19 - 0.80 12/22 Specimen Type: BLOOD No comment entered. Ordering Provider: MICKI COTTER AR Report Released Date/Time: Dec 23, 2023 04:13 PM Reporting Lab: [address] [address] Performing Lab: [address] [address] [facility] CBC NEUTROPHIL S [#/VOLUME] IN BLOOD BY AUTOMATED COUNT 2.03 10*3/uL 2.10 - 8.00 12/22 L Specimen Type: BLOOD No comment entered. Ordering Provider: MICKI COTTER AR Report Released Date/Time: Dec 23, 2023 04:13 PM Reporting Lab: [address] [address] Performing Lab: [address] [address] [facility] CBC EOSINOPHIL S [#/VOLUME] IN BLOOD BY AUTOMATED COUNT 0.13 10*3/uL 0.00 - 0.60 12/22 Specimen Type: BLOOD No comment entered. Ordering Provider: MICKI COTTER AR Report Released Date/Time: Dec 23, 2023 04:13 PM Reporting Lab: [address] [address] Performing Lab: [address] [address] [facility] CBC BASOPHILS [#/VOLUME] IN BLOOD BY AUTOMATED COUNT 0.08 10*3/uL 0.00 - 0.20 12/22 Specimen Type: BLOOD No comment entered. Ordering Provider: MICKI COTTER AR Report Released Date/Time: Dec 23, 2023 04:13 PM Reporting Lab: [address] [address] Performing Lab: [place] [id number] [facility] [address] [facility] COMPREHE NSIVE METABOLI C PANEL CREATININE [MASS/VOLU ME] IN SERUM OR PLASMA 0.84 mg/dL 0.6 - 1.1 12/22 Specimen Type: PLASMA Comment: No hemolysis noted. Ordering Provider: MICKI COTTER Report Released Date/Time: Dec 23, 2023 04:13 PM Reporting Lab: [address] [address] Performing Lab: [address] [address] [facility] COMPREHE NSIVE METABOLI C PANEL UREA NITROGEN [MASS/VOLU ME] IN SERUM OR PLASMA 5.6 mg/dL 9.0 - 25.0 12/22 L Specimen Type: PLASMA Comment: No hemolysis noted. Ordering Provider: MICKI COTTER Report Released Date/Time: Dec 23, 2023 04:13 PM Reporting Lab: [address] [address] Performing Lab: [address] [address] [facility] COMPREHE NSIVE METABOLI C PANEL GLUCOSE [MASS/VOLU ME] IN SERUM OR PLASMA 109 mg/dL 72 - 99 12/22 H Specimen Type: PLASMA Comment: No hemolysis noted. Ordering Provider: MICKI COTTER Report Released Date/Time: Dec 23, 2023 04:13 PM Reporting Lab: [address] [address] Performing Lab: [address] [address] [facility] COMPREHE NSIVE METABOLI C PANEL SODIUM [MOLES/VOL UME] IN SERUM OR PLASMA 139 meq/L 136 - 145 12/22 Specimen Type: PLASMA Comment: No hemolysis noted. Ordering Provider: MICKI COTTER AR Report Released Date/Time: Dec 23, 2023 04:13 PM Reporting Lab: [facility] [address] [facility] [address] Performing Lab: [facility] [address] [facility] [address] [facility] COMPREHE NSIVE METABOLI C PANEL POTASSIUM [MOLES/VOL UME] IN SERUM OR PLASMA 3.7 meq/L 3.5 - 5 12/22 Specimen Type: PLASMA Comment: No hemolysis noted. Ordering Provider: MICKI COTTER AR Report Released Date/Time: Dec 23, 2023 04:13 PM Reporting Lab: [facility] [address] [facility] [address] Performing Lab: [facility] [address] [facility] [address] [facility] COMPREHE NSIVE METABOLI C PANEL CHLORIDE [MOLES/VOL UME] IN SERUM OR PLASMA 108 meq/L 98 - 107 12/22 H Specimen Type: PLASMA Comment: No hemolysis noted. Ordering Provider: MICKI COTTER AR Report Released Date/Time: Dec 23, 2023 04:13 PM Reporting Lab: [place] [address] [facility] [address] Performing Lab: [facility] [address] [facility] [address] [facility] COMPREHE NSIVE METABOLI C PANEL CARBON DIOXIDE, TOTAL [MOLES/VOL UME] IN SERUM OR PLASMA 17 meq/L 22 - 31 12/22 L Specimen Type: PLASMA Comment: No hemolysis noted. Ordering Provider: MICKI COTTER AR Report Released Date/Time: Dec 23, 2023 04:13 PM Reporting Lab: [place] [address] [facility] [address] Performing Lab: [facility] [address] [place] [address] [facility] COMPREHE NSIVE METABOLI C PANEL CALCIUM [MASS/VOLU ME] IN SERUM OR PLASMA 9.1 mg/dL 8.4 - 10.4 12/22 Specimen Type: PLASMA Comment: No hemolysis noted. Ordering Provider: MICKI COTTER AR Report Released Date/Time: Dec 23, 2023 04:13 PM Reporting Lab: [facility] [address] [place] [address] Performing Lab: [facility] [address] [facility] [address] [facility] COMPREHE NSIVE METABOLI C PANEL PROTEIN [MASS/VOLU ME] IN SERUM OR PLASMA 8.2 g/dL 6 - 8.6 12/22 Specimen Type: PLASMA Comment: No hemolysis noted. Ordering Provider: MICKI COTTER Report Released Date/Time: Dec 23, 2023 04:13 PM Reporting Lab: [facility] [address] [place] [address] Performing Lab: [facility] [address] [place] [address] [facility] COMPREHE NSIVE METABOLI C PANEL ALBUMIN [MASS/VOLU ME] IN SERUM OR PLASMA 4.4 g/dL 3.4 - 5 12/22 Specimen Type: PLASMA Comment: No hemolysis noted. Ordering Provider: MICKI COTTER Report Released Date/Time: Dec 23, 2023 04:13 PM Reporting Lab: [facility] [address] [place] [address] Performing Lab: [facility] [address] [place] [address] [facility] COMPREHE NSIVE METABOLI C PANEL BILIRUBIN. TOTAL [MASS/VOLU ME] IN SERUM OR PLASMA 0.3 mg/dL 0.2 - 1.2 12/22 Specimen Type: PLASMA Comment: No hemolysis noted. Ordering Provider: MICKI COTTER Report Released Date/Time: Dec 23, 2023 04:13 PM Reporting Lab: [facility] [address] [place] [address] Performing Lab: [facility] [address] [place] [phone] [facility] COMPREHE NSIVE METABOLI C PANEL ALKALINE PHOSPHATAS E [ENZYMATIC ACTIVITY/V OLUME] IN SERUM OR PLASMA 82 U/L 40 - 150 12/22 Specimen Type: PLASMA Comment: No hemolysis noted. Ordering Provider: MICKI COTTER Report Released Date/Time: Dec 23, 2023 04:13 PM Reporting Lab: [place] [address] [facility] [address] Performing Lab: [place] [address] [facility] [address] [facility] COMPREHE NSIVE METABOLI C PANEL ASPARTATE AMINOTRANS FERASE [ENZYMATIC ACTIVITY/V OLUME] IN SERUM OR PLASMA 25 U/L 5 - 34 12/22 Specimen Type: PLASMA Comment: No hemolysis noted. Ordering Provider: MICKI COTTER Report Released Date/Time: Dec 23, 2023 04:13 PM Reporting Lab: [place] [address] [facility] [address] Performing Lab: [place] [address] [facility] [address] [facility] COMPREHE NSIVE METABOLI C PANEL ALANINE AMINOTRANS FERASE [ENZYMATIC ACTIVITY/V OLUME] IN SERUM OR PLASMA 17 U/L 8 - 40 12/22 Specimen Type: PLASMA Comment: No hemolysis noted. Ordering Provider: MICKI COTTER Report Released Date/Time: Dec 23, 2023 04:13 PM Reporting Lab: [place] [address] [facility] [address] Performing Lab: [place] [address] [facility] [address] [facility] COMPREHE NSIVE METABOLI C PANEL GLOMERULAR FILTRATION RATE/1.73 SQ M.PREDICTE D [VOLUME RATE/AREA] IN SERUM, PLASMA OR BLOOD BY CREATININE -BASED FORMULA (CKD-EPI 2020) 97.0 60 12/22 Specimen Type: PLASMA Comment: No hemolysis noted. Ordering Provider: MICKI COTTER Report Released Date/Time: Dec 23, 2023 04:13 PM Reporting Lab: [address] [address] Performing Lab: [address] [address] [facility] COVID-19 SCREENIN G PANEL (STL-PB) [...] final interpretat ion. Ordering Provider: MICKI COTTER Report Released Date/Time: Dec 23, 2023 04:13 PM Reporting Lab: [address] [address] Performing Lab: [address] [address] [facility] ETHANOL SERUM/PL ASMA (STL) ETHANOL [MASS/VOLU ME] IN SERUM OR PLASMA 300 mg/dL 0 - 10 12/22 H Specimen Type: PLASMA Comment: No hemolysis noted. Ordering Provider: MICKI COTTER AR Report Released Date/Time: Dec 23, 2023 04:13 PM Reporting Lab: [address] [address] Performing Lab: [address] [address] [facility] METHADON E PANEL (STL) ETHANOL [MASS/VOLU ME] IN URINE 296-POSm g/dL 0 - 20 12/22 H Specimen Type: URINE Comment: The cut-off value for this test was laboratory developed and its performance characteris tics confirmed by the [facility] laboratory thru method comparison with reference laboratory and medication chart review. The laboratory is regulated under CLIA as qualified to perform high-comple xity testing. This test is used for clinical purposes in conjunction with other laboratory tests. Ordering Provider: MICKI COTTER AR Report Released Date/Time: Dec 23, 2023 04:13 PM Reporting Lab: [address] [address] Performing Lab: [place] [address] [facility] [address] [facility] METHADON E PANEL (STL) AMPHETAMIN E [PRESENCE] IN URINE BY SCREEN METHOD Negative ng/mL 12/22 Specimen Type: URINE Comment: The cut-off value for this test was laboratory developed and its performance characteris tics confirmed by the [facility] laboratory thru method comparison with reference laboratory and medication chart review. The laboratory is regulated under CLIA as qualified to perform high-comple xity testing. This test is used for clinical purposes in conjunction with other laboratory tests. Ordering Provider: MICKI COTTER AR Report Released Date/Time: Dec 23, 2023 04:13 PM Reporting Lab: [address] [address] Performing Lab: [address] [address] [facility] METHADON E PANEL (STL) BENZOYLECG ONINE [PRESENCE] IN URINE Negative ng/mL 12/22 Specimen Type: URINE Comment: The cut-off value for this test was laboratory developed and its performance characteris tics confirmed by the [facility] laboratory thru method comparison with reference laboratory and medication chart review. The laboratory is regulated under CLIA as qualified to perform high-comple xity testing. This test is used for clinical purposes in conjunction with other laboratory tests. Ordering Provider: MICKI COTTER AR Report Released Date/Time: Dec 23, 2023 04:13 PM Reporting Lab: [address] [address] Performing Lab: [place] [address] [facility] [address] [facility] METHADON E PANEL (STL) BENZODIAZE PINES [PRESENCE] IN URINE BY SCREEN METHOD Negative ng/mL 12/22 Specimen Type: URINE Comment: The cut-off value for this test was laboratory developed and its performance characteris tics confirmed by the [facility] laboratory thru method comparison with reference laboratory and medication chart review. The laboratory is regulated under CLIA as qualified to perform high-comple xity testing. This test is used for clinical purposes in conjunction with other laboratory tests. Ordering Provider: MICKI COTTER AR Report Released Date/Time: Dec 23, 2023 04:13 PM Reporting Lab: [address] [address] Performing Lab: [address] [address] [facility] METHADON E PANEL (STL) CANNABINOI DS [PRESENCE] IN URINE BY SCREEN METHOD 99-POSng /mL 12/22 Specimen Type: URINE Comment: The cut-off value for this test was laboratory developed and its performance characteris tics confirmed by the [facility] laboratory thru method comparison with reference laboratory and medication chart review. The laboratory is regulated under CLIA as qualified to perform high-comple xity testing. This test is used for clinical purposes in conjunction with other laboratory tests. Ordering Provider: MICKI COTTER AR Report Released Date/Time: Dec 23, 2023 04:13 PM Reporting Lab: [place] [address] [facility] [address] Performing Lab: [place] [address] [facility] [address] [facility] METHADON E PANEL (STL) METHADONE [PRESENCE] IN URINE Negative ng/mL 12/22 Specimen Type: URINE Comment: The cut-off value for this test was laboratory developed and its performance characteris tics confirmed by the [facility] laboratory thru method comparison with reference laboratory and medication chart review. The laboratory is regulated under CLIA as qualified to perform high-comple xity testing. This test is used for clinical purposes in conjunction with other laboratory tests. Ordering Provider: MICKI COTTER Report Released Date/Time: Dec 23, 2023 04:13 PM Reporting Lab: [facility] [address] [facility] [address] Performing Lab: [facility] [address] [facility] [address] [facility] METHADON E PANEL (STL) OPIATES [PRESENCE] IN URINE BY SCREEN METHOD Negative ng/mL 12/22 Specimen Type: URINE Comment: The cut-off value for this test was laboratory developed and its performance characteris tics confirmed by the [facility] laboratory thru method comparison with reference laboratory and medication chart review. The laboratory is regulated under CLIA as qualified to perform high-comple xity testing. This test is used for clinical purposes in conjunction with other laboratory tests. Ordering Provider: MICKI COTTER Report Released Date/Time: Dec 23, 2023 04:13 PM Reporting Lab: [place] [address] [facility] [address] Performing Lab: [address] [address] [facility] METHADON E PANEL (STL) CREATININE [MASS/VOLU ME] IN URINE 63.4 mg/dL 47 - 110 12/22 Specimen Type: URINE Comment: The cut-off value for this test was laboratory developed and its performance characteris tics confirmed by the [facility] laboratory thru method comparison with reference laboratory and medication chart review. The laboratory is regulated under CLIA as qualified to perform high-comple xity testing. This test is used for clinical purposes in conjunction with other laboratory tests. Ordering Provider: MICKI COTTER Report Released Date/Time: Dec 23, 2023 04:13 PM Reporting Lab: [place] [address] [facility] [address] Performing Lab: [address] [address] [facility] METHADON E PANEL (STL) OXYCODONE CUTOFF [MASS/VOLU ME] IN URINE FOR SCREEN METHOD Negative ng/mL 12/22 Specimen Type: URINE Comment: The cut-off value for this test was laboratory developed and its performance characteris tics confirmed by the [facility] laboratory thru method comparison with reference laboratory and medication chart review. The laboratory is regulated under CLIA as qualified to perform high-comple xity testing. This test is used for clinical purposes in conjunction with other laboratory tests. Ordering Provider: MCIKI COTTER Report Released Date/Time: Dec 23, 2023 04:13 PM Reporting Lab: [place] [address] [facility] [address] Performing Lab: [address] [address] [facility] METHADON E PANEL (STL) BUPRENORPH INE [PRESENCE] IN URINE Negative 12/22 Specimen Type: URINE Comment: The cut-off value for this test was laboratory developed and its performance characteris tics confirmed by the [facility] laboratory thru method comparison with reference laboratory and medication chart review. The laboratory is regulated under CLIA as qualified to perform high-comple xity testing. This test is used for clinical purposes in conjunction with other laboratory tests. Ordering Provider: MICKI COTTER AR Report Released Date/Time: Dec 23, 2023 04:13 PM Reporting Lab: [place] [address] [facility] [address] Performing Lab: [place] [address] [facility] [address] [facility] METHADON E PANEL (STL) FENTANYL [PRESENCE] IN URINE Negative ng/mL 12/22 Specimen Type: URINE Comment: The cut-off value for this test was laboratory developed and its performance characteris tics confirmed by the [facility] laboratory thru method comparison with reference laboratory and medication chart review. The laboratory is regulated under CLIA as qualified to perform high-comple xity testing. This test is used for clinical purposes in conjunction with other laboratory tests. Ordering Provider: MICKI COTTER AR Report Released Date/Time: Dec 23, 2023 04:13 PM Reporting Lab: [facility] [address] [facility] [address] Performing Lab: [facility] [address] [facility] [address] [facility] PREGNANC Y TEST URINE (MA-STL) CHORIOGONA DOTROPIN ( TEST) [PRESENCE] IN URINE NEG 12/22 Specimen Type: URINE No comment entered. Ordering Provider: MICKI COTTER Report Released Date/Time: Dec 23, 2023 04:13 PM Reporting Lab: [place] [address] [facility] [address] Performing Lab: [place] [address] [facility] [address] [facility] URINALYS IS (STL-PB) COLOR OF URINE Colorles s 12/22 Specimen Type: URINE No comment entered. Ordering Provider: MICKI COTTER Report Released Date/Time: Dec 23, 2023 04:13 PM Reporting Lab: [place] [address] [facility] [address] Performing Lab: [place] [address] [facility] [address] [facility] URINALYS IS (STL-PB) BILIRUBIN. TOTAL [PRESENCE] IN URINE BY TEST STRIP Negative mg/dL 12/22 Specimen Type: URINE No comment entered. Ordering Provider: MICKI COTTER Report Released Date/Time: Dec 23, 2023 04:13 PM Reporting Lab: [place] [address] [facility] [address] Performing Lab: [place] [address] [facility] [address] [facility] URINALYS IS (STL-PB) PH OF URINE BY TEST STRIP 6.5 5.0 - 8.0 12/22 Specimen Type: URINE No comment entered. Ordering Provider: MICKI COTTER AR Report Released Date/Time: Dec 23, 2023 04:13 PM Reporting Lab: [facility] [address] [facility] [address] Performing Lab: [address] [address] [facility] URINALYS IS (STL-PB) APPEARANCE OF URINE Clear 12/22 Specimen Type: URINE No comment entered. Ordering Provider: MICKI COTTER Report Released Date/Time: Dec 23, 2023 04:13 PM Reporting Lab: [place] [address] [facility] [address] Performing Lab: [address] [address] [facility] URINALYS IS (STL-PB) NITRITE [PRESENCE] IN URINE BY TEST STRIP Negative mg/dL 12/22 Specimen Type: URINE No comment entered. Ordering Provider: MICKI COTTER Report Released Date/Time: Dec 23, 2023 04:13 PM Reporting Lab: [place] [address] [facility] [address] Performing Lab: [address] [address] [facility] URINALYS IS (STL-PB) GLUCOSE [MASS/VOLU ME] IN URINE BY TEST STRIP Normalmg /dL 12/22 Specimen Type: URINE No comment entered. Ordering Provider: MICKI COTTER AR Report Released Date/Time: Dec 23, 2023 04:13 PM Reporting Lab: [place] [address] [facility] [address] Performing Lab: [address] [address] [facility] URINALYS IS (STL-PB) PROTEIN [MASS/VOLU ME] IN URINE BY TEST STRIP Negative mg/dL - 20 12/22 Specimen Type: URINE No comment entered. Ordering Provider: MICKI COTTER Report Released Date/Time: Dec 23, 2023 04:13 PM Reporting Lab: [facility] [address] [facility] [address] Performing Lab: [facility] [address] [facility] [address] [facility] URINALYS IS (STL-PB) URN.UROBIL INOGEN Normalmg /dL 12/22 Specimen Type: URINE No comment entered. Ordering Provider: MICKI COTTER Report Released Date/Time: Dec 23, 2023 04:13 PM Reporting Lab: [place] [address] [facility] [address] Performing Lab: [address] [address] [facility] URINALYS IS (STL-PB) HEMOGLOBIN [MASS/VOLU ME] IN URINE BY TEST STRIP Negative mg/dL 12/22 Specimen Type: URINE No comment entered. Ordering Provider: MICKI COTTER Report Released Date/Time: Dec 23, 2023 04:13 PM Reporting Lab: [place] [address] [facility] [address] Performing Lab: [address] [address] [facility] URINALYS IS (STL-PB) KETONES [MASS/VOLU ME] IN URINE BY TEST STRIP Negative mg/dL 12/22 Specimen Type: URINE No comment entered. Ordering Provider: MICKI COTTER Report Released Date/Time: Dec 23, 2023 04:13 PM Reporting Lab: [place] [address] [facility] [address] Performing Lab: [address] [address] [facility] URINALYS IS (STL-PB) URN.LEUK.E ST. Negative mg/dL 12/22 Specimen Type: URINE No comment entered. Ordering Provider: MICKI COTTER Report Released Date/Time: Dec 23, 2023 04:13 PM Reporting Lab: [place] [address] [facility] [address] Performing Lab: [place] [address] [facility] [phone] [place] [address] URINALYS IS (STL-PB) SPECIFIC GRAVITY OF URINE 1.009 1.005 - 1.029 12/22 Specimen Type: URINE No comment entered. Ordering Provider: MICKI COTTER Report Released Date/Time: Dec 23, 2023 04:13 PM Reporting Lab: [place] [address] [facility] [address] Performing Lab: [address] METHADON E PANEL (STL) ETHANOL [MASS/VOLU ME] IN URINE Negative mg/dL 0 - 20 04/12 Specimen Type: URINE Comment: The cut-off value for this test was laboratory developed and its performance characteris tics confirmed by the [facility] laboratory thru method comparison with reference laboratory and medication chart review. The laboratory is regulated under CLIA as qualified to perform high-comple xity testing. This test is used for clinical purposes in conjunction with other laboratory tests. Ordering Provider: MERLE LANG Report Released Date/Time: Apr 12, 2023 07:25 AM Reporting Lab: [address] [address] Performing Lab: [address] [address] [facility] METHADON E PANEL (STL) AMPHETAMIN E [PRESENCE] IN URINE BY SCREEN METHOD Negative ng/mL 04/12 Specimen Type: URINE Comment: The cut-off value for this test was laboratory developed and its performance characteris tics confirmed by the [facility] laboratory thru method comparison with reference laboratory and medication chart review. The laboratory is regulated under CLIA as qualified to perform high-comple xity testing. This test is used for clinical purposes in conjunction with other laboratory tests. Ordering Provider: MERLE LANG Report Released Date/Time: Apr 12, 2023 07:25 AM Reporting Lab: [place] [address] [facility] [address] Performing Lab: [address] [address] [facility] METHADON E PANEL (STL) BENZOYLECG ONINE [PRESENCE] IN URINE Negative ng/mL 04/12 Specimen Type: URINE Comment: The cut-off value for this test was laboratory developed and its performance characteris tics confirmed by the [facility] laboratory thru method comparison with reference laboratory and medication chart review. The laboratory is regulated under CLIA as qualified to perform high-comple xity testing. This test is used for clinical purposes in conjunction with other laboratory tests. Ordering Provider: MERLE LANG Report Released Date/Time: Apr 12, 2023 07:25 AM Reporting Lab: [address] [address] Performing Lab: [address] [address] [facility] METHADON E PANEL (STL) BENZODIAZE PINES [PRESENCE] IN URINE BY SCREEN METHOD Negative ng/mL 04/12 Specimen Type: URINE Comment: The cut-off value for this test was laboratory developed and its performance characteris tics confirmed by the [facility] laboratory thru method comparison with reference laboratory and medication chart review. The laboratory is regulated under CLIA as qualified to perform high-comple xity testing. This test is used for clinical purposes in conjunction with other laboratory tests. Ordering Provider: MERLE LANG Report Released Date/Time: Apr 12, 2023 07:25 AM Reporting Lab: [address] [address] Performing Lab: [address] [address] [facility] METHADON E PANEL (STL) CANNABINOI DS [PRESENCE] IN URINE BY SCREEN METHOD 100-POSn g/mL 04/12 Specimen Type: URINE Comment: The cut-off value for this test was laboratory developed and its performance characteris tics confirmed by the [facility] laboratory thru method comparison with reference laboratory and medication chart review. The laboratory is regulated under CLIA as qualified to perform high-comple xity testing. This test is used for clinical purposes in conjunction with other laboratory tests. Ordering Provider: MERLE LANG Report Released Date/Time: Apr 12, 2023 07:25 AM Reporting Lab: [facility] [address] [facility] [address] Performing Lab: [facility] [address] [facility] [address] [facility] METHADON E PANEL (STL) METHADONE [PRESENCE] IN URINE Negative ng/mL 04/12 Specimen Type: URINE Comment: The cut-off value for this test was laboratory developed and its performance characteris tics confirmed by the [facility] laboratory thru method comparison with reference laboratory and medication chart review. The laboratory is regulated under CLIA as qualified to perform high-comple xity testing. This test is used for clinical purposes in conjunction with other laboratory tests. Ordering Provider: MERLE LANG Report Released Date/Time: Apr 12, 2023 07:25 AM Reporting Lab: [facility] [address] [facility] [address] Performing Lab: [place] [address] [facility] [address] [facility] METHADON E PANEL (STL) OPIATES [PRESENCE] IN URINE BY SCREEN METHOD Negative ng/mL 04/12 Specimen Type: URINE Comment: The cut-off value for this test was laboratory developed and its performance characteris tics confirmed by the [facility] laboratory thru method comparison with reference laboratory and medication chart review. The laboratory is regulated under CLIA as qualified to perform high-comple xity testing. This test is used for clinical purposes in conjunction with other laboratory tests. Ordering Provider: MERLE LANG Report Released Date/Time: Apr 12, 2023 07:25 AM Reporting Lab: [facility] [place] [address] [address] Performing Lab: [address] [address] [facility] METHADON E PANEL (STL) CREATININE [MASS/VOLU ME] IN URINE 59.3 mg/dL 47 - 110 04/12 Specimen Type: URINE Comment: The cut-off value for this test was laboratory developed and its performance characteris tics confirmed by the [facility] laboratory thru method comparison with reference laboratory and medication chart review. The laboratory is regulated under CLIA as qualified to perform high-comple xity testing. This test is used for clinical purposes in conjunction with other laboratory tests. Ordering Provider: MERLE LANG Report Released Date/Time: Apr 12, 2023 07:25 AM Reporting Lab: [address] [address] Performing Lab: [address] [address] [facility] METHADON E PANEL (STL) OXYCODONE CUTOFF [MASS/VOLU ME] IN URINE FOR SCREEN METHOD Negative ng/mL 04/12 Specimen Type: URINE Comment: The cut-off value for this test was laboratory developed and its performance characteris tics confirmed by the [facility] laboratory thru method comparison with reference laboratory and medication chart review. The laboratory is regulated under CLIA as qualified to perform high-comple xity testing. This test is used for clinical purposes in conjunction with other laboratory tests. Ordering Provider: MERLE LANG Report Released Date/Time: Apr 12, 2023 07:25 AM Reporting Lab: [address] [address] Performing Lab: [address] [address] [facility] METHADON E PANEL (STL) BUPRENORPH INE [PRESENCE] IN URINE Negative 04/12 Specimen Type: URINE Comment: The cut-off value for this test was laboratory developed and its performance characteris tics confirmed by the [facility] laboratory thru method comparison with reference laboratory and medication chart review. The laboratory is regulated under CLIA as qualified to perform high-comple xity testing. This test is used for clinical purposes in conjunction with other laboratory tests. Ordering Provider: MERLE LANG Report Released Date/Time: Apr 12, 2023 07:25 AM Reporting Lab: [place] [address] [facility] [address] Performing Lab: [address] [address] [facility] METHADON E PANEL (STL) FENTANYL [PRESENCE] IN URINE Negative ng/mL 04/12 Specimen Type: URINE Comment: The cut-off value for this test was laboratory developed and its performance characteris tics confirmed by the [facility] laboratory thru method comparison with reference laboratory and medication chart review. The laboratory is regulated under CLIA as qualified to perform high-comple xity testing. This test is used for clinical purposes in conjunction with other laboratory tests. Ordering Provider: MERLE LANG Report Released Date/Time: Apr 12, 2023 07:25 AM Reporting Lab: [address] [address] Performing Lab: [address] [address] [facility] GC & CHLAMYDI A PCR (STL-PB) [...] Apr 06, 2023 02:04 PM Reporting Lab: [facility] [address] [place] [address] Performing Lab: [facility] [address] [place] [address] [facility] GC & CHLAMYDI A PCR ([facility]-PB) CHLAMYDIA SP DNA [PRESENCE] IN URINE [...] Apr 06, 2023 02:04 PM Reporting Lab: [facility] [address] [place] [address] Performing Lab: [facility] [address] [place] [address] [facility] RAPID PLASMA REAGIN (RPR) REAGIN AB [PRESENCE] IN SERUM BY RPR NON-REAC TIVE 04/07 Specimen Type: SERUM No comment entered. Ordering Provider: MAREN GROVE Report Released Date/Time: Apr 06, 2023 02:04 PM Reporting Lab: [facility] [address] [place] [address] Performing Lab: [facility] [address] [place] [address] [facility] Vital Signs Combined list of inpatient and outpatient Vital Signs from Department of [facility] and [facility], ranging from 12 months to all on record, depending upon the facility. Vital Sign Value Date Comments Source SYSTOLIC BLOOD PRESSURE 105 12/24/2023 05:39:08 [facility] DIASTOLIC BLOOD PRESSURE 67 12/24/2023 05:39:08 [facility] PULSE OXIMETRY 100 12/24/2023 05:39:08 [facility] PAIN 1 12/24/2023 05:39:08 [facility] TEMPERATURE 98.7 12/24/2023 05:39:08 [facility] PULSE 62 12/24/2023 05:39:08 [facility] RESPIRATION 16 12/24/2023 05:39:08 [facility] SYSTOLIC BLOOD PRESSURE 116 12/23/2023 16:08:00 [facility] DIASTOLIC BLOOD PRESSURE 69 12/23/2023 16:08:00 [facility] PAIN 0 12/23/2023 16:08:00 [facility] TEMPERATURE 98.2 12/23/2023 16:08:00 [facility] PULSE 94 12/23/2023 16:08:00 [facility] RESPIRATION 16 12/23/2023 16:08:00 [facility] Encounters Combined list of: 1) Encounters from Department of [facility] Affairs facilities going backup to the last 18 months, not all [place] inpatient encounters are included; 2) Encounters from the Department of [facility] facilities going backup to 280 months. Location Location Details Encounter Type Encounter Number Reason For Visit Attending Provider ADM Date DC Date Status Disposition Source [facility](IEP Primary Care) OUTPATIENT [id number] Notes Entered by: VERNON DURÁN OD 29 Sep 2017 1104 ------- ------- ------- ------- -- right ankle injury TEZ AJ 09/29 Released with Work/Duty Limitations [employer](I EP Primary Care) [employer](PES Optometry -Trainee) OUTPATIENT [id number] BARRON LEAL Nigel 09/29 Released w/o Limitations [employer](P ES Optomet ry-Kirill nee) [employer]([facility] [place] [facility]am[place] OUTPATIENT [id number] Notes Entered by: Nicolasa CHEATHAM 03 Oct 2017 0734 ------- ------- ------- ------- -- To get clear to ship for right ankle TEZ AJ 10/03 Released w/o Limitations [employer](R MC Physica l Exam) [employer]([facility] Immunizat ions (Post)) OUTPATIENT [id number] Notes Entered by: Pieter GOMEZ 04 Oct 2017 1005 ------- ------- ------- ------- -- IET MESHA NOLAN 10/04 Released w/o Limitations [facility] Immuniz ations (Post)) [facility] Physical Therapy) OUTPATIENT [id number] Notes Entered by: FORTUNATO ORDOÑEZ 06 Oct 2017 0955 ------- ------- ------- ------- -- Ankle pain DULCE MARIA KEMP 10/06 Released w/o Limitations [facility](T MC Physica l Therapy ) [facility] Physical Therapy) OUTPATIENT [id number] Notes Entered by: FORTUNATO ORDOÑEZ 12 Oct 2017 1021 ------- ------- ------- ------- -- Ankle pain DULCE MARIA KEMP 10/12 Released with Work/Duty Limitations [employer](T MC Physica l Therapy ) [facility] Immunizat ions (Post)) OUTPATIENT [id number] Notes Entered by: Pieter GOMEZ 02 Nov 2017 1017 ------- ------- ------- ------- -- DF MESHA NOLAN 11/02 Released w/o Limitations [facility] Immuniz ations (Post)) [facility]([address]) OUTPATIENT [id number] Notes Entered by: RIO LIPSCOMB 02 Jan 2018 0701 ------- ------- ------- ------- -- Lighthe aded Dizzy HARITHA [employer] 01/02 Sick at Home/Quarter s [facility]([address]) [facility]([address]) TELE CONSULT [id number] Notes Entered by: HARITHA NGO 03 Jan 2018 1018 ------- ------- ------- ------- -- To review labs ELPIDIO TURCIOS 01/03 [facility]([address] [address]) [facility]([address]) OUTPATIENT [id number] Notes Entered by: RIO LIPSCOMB 05 Jan 2018 0633 ------- ------- ------- ------- -- Follow up call back HARITHA [employer] 01/05 Released w/o Limitations [facility]([address]) [facility]([address]) OUTPATIENT [id number] Notes Entered by: SORIN HERZOG 13 Jan 2018 0643 ------- ------- ------- ------- -- ankle pain HARITHA [employer] 01/13 Released with Work/Duty Limitations [facility]([address]) [facility]([address]) OUTPATIENT [id number] Notes Entered by: SORIN HERZOG 24 Jan 2018 0634 ------- ------- ------- ------- -- follow up HARITHA NGO 01/24 Released with Work/Duty Limitations [facility]([address]) [facility]([address]) OUTPATIENT [id number] Notes Entered by: RIO LIPSCOMB 30 Jan 2018 0636 ------- ------- ------- ------- -- Ankle pain F/U HARITHA NGOPOONAM 01/30 Released with Work/Duty Limitations [facility]([address]) [facility]([address]) TELE CONSULT [id number] Notes Entered by: Dick ZAMAN 14 Feb 2018 1447 ------- ------- ------- ------- -- f/u mri WALLY ZAMAN 02/14 [facility]([address]) [facility]([address]) OUTPATIENT [id number] Notes Entered by: Aaron RODRIGUEZ 15 Feb 2018 0705 ------- ------- ------- ------- -- Right Ankle AMINTA BRAMBILA 02/15 Released with Work/Duty Limitations [facility]([address]) [facility]([address]) OUTPATIENT [id number] Pain in right ankle and joints of right foot AMINTA BRAMBILA 02/20 Released with Work/Duty Limitations [facility]([address]) [facility]) OUTPATIENT [id number] unstabl e fractur ed ankle DUERDESTEFANI MOBLEY 02/21 Released w/o Limitations [facility]) [facility]([address]) OUTPATIENT [id number] Ankle Pain AMINTA BRAMBILA 02/24 Released w/o Limitations [facility] [place]) [facility] [place]([facility] OUTPATIENT [id number] Notes Entered by: MIKE POWELL 08 Sep 2018 0929 ------- ------- ------- ------- -- imr/pha /mf 830/flu /hep b/g6pd/ vision YESSENIA LEE 09/08 Released w/o Limitations [facility] [place] [facility] [place] [facility] [facility] [place] Conserv[place] OUTPATIENT [id number] Notes Entered by: MANUEL BASURTO 08 Sep 2018 1112 ------- ------- ------- ------- -- MANUEL Rossi 09/08 Released w/o Limitations [facility] [place] [facility] [place] [facility] ([facility] [place]) TELE CONSULT [id number] Notes Entered by: Sandi CHANEY 23 Sep 2018 0744 ------- ------- ------- ------- -- F/u ER visit NYDIA CHANEY 09/23 Referred for Appointment [facility] ([facility] [place]) [facility] PRO PHONE CALL 11-20 MIN [id number] [id number] Diagnos is: ICD-10- CM Z59.02 Unshelt ered homeBUD Posey P 06/[address] [facility] PRO PHONE CALL 11-20 MIN [id number] [id number] Diagnos is: ICD-10- CM Z59.02 Unshelt ered homeles BUD Brewster P 12/28 /[address] [facility] CASE MANAGEMENT [id number] [id number] Diagnos is: ICD-10- CM Z59.02 Unshelt ered BUD ByrdNE P 07/[address] [facility] HC PRO PHONE CALL 11-20 MIN [id number] [id number] Diagnos is: ICD-10- CM F43.10 Post-tr aumatic stress disorde r, unspeci REN Hassan 07/05 [facility] Encounter [id number] 07/05 [facility] PRO PHONE CALL 5-10 MIN [id number] [id number] Diagnos is: ICD-10- CM Z59.02 Unshelt BUD Solis LAURA P 07/[address] [facility] CASE MANAGEMENT [id number] [id number] Diagnos is: ICD-10- CM Z59.02 Unshelt ered BUD Byrd LAURA P 07/[address] [facility] [place] [facility] HC PRO PHONE CALL 5-10 MIN [id number] [id number] 255 Diagnos is: ICD-10- CM Z59.02 Unshelt ered BUD Byrd LAURA P 07/[address] [facility] HC PRO PHONE CALL 11-20 MIN [id number] [id number] Diagnos is: ICD-10- CM F43.10 Post-tr aumatic stress disorde r, unspeci ERN Hassan 07/27 [facility] Outpatient Encounter [id number] Diagnos is: ICD-10- CM F10.20 Alcohol depende nce, uncompl icated LAY XIONG LBFrancisca L 07/28 [facility] Outpatient Encounter [id number] [id number] 07/28 [facility] HC PRO PHONE CALL 21-30 MIN [id number] [id number] Diagnos is: ICD-10- CM F43.10 Post-tr aumatic stress disorde r, unspeci fied BELLA BUSTOS S 07/28 [facility] Outpatient Encounter [id number] [id number] 07/28 [facility] Outpatient Encounter [id number] [id number] BELLA BUSTOS S 07/28 [facility] Outpatient Encounter [id number] [id number] 07/28 [facility] Outpatient Encounter [id number] [id number] 07/29 [facility] QNHP OL DIG ASSMT&MGMT 11-20 [id number] [id number] Diagnos is: ICD-10- CM R45.851 Suicida l ideatio ns CASADY,TAR A E 07/29 [facility] Outpatient Encounter [id number] [id number] BELLA BUSTOS S 07/29 [facility] HC PRO PHONE CALL 21-30 MIN [id number] [id number] 523 Diagnos is: ICD-10- CM Z59.02 Unshelt BUD Solis P 08/01 [address] [facility] Outpatient Encounter [id number] [id number] ALEX BECK AN 08/01 [facility] HC PRO PHONE CALL 21-30 MIN [id number] [id number] Diagnos is: ICD-10- CM R45.851 Suicida l ideatio ns CASADY,TAR A E 08/01 [facility] HC PRO PHONE CALL 21-30 MIN [id number] [id number] Diagnos is: ICD-10- CM R45.851 Suicida l ideatio ns CASADY,TAR A E 08/01 [facility] CASE MANAGEMENT [id number] [id number] Diagnos is: ICD-10- CM Z59.02 Unshelt BUD Solis P 08/02 [address] [facility] HC PRO PHONE CALL 21-30 MIN [id number] [id number] Diagnos is: ICD-10- CM F10.20 Alcohol depende nce, uncompl icated CASADY,TAR A E 08/04 [facility] Outpatient Encounter [id number] [id number] 08/05 [facility] Outpatient Encounter [id number] [id number] CASADY,TAR A E 08/08 [facility] [place] [address] [place] [facility] PSYTX W PT 45 MINUTES [id number] [id number] Diagnos is: ICD-10- CM Z59.02 Unshelt ered BUD ByrdNE P 08/[address] [facility] Outpatient Encounter [id number] [id number] 08/09 [facility] [place] [address] [place] [facility] HC PRO PHONE CALL 11-20 MIN [id number] [id number] Diagnos is: ICD-10- CM Z59.02 Unshelt ered BUD ByrdNE P 08/[address] [facility] HC PRO PHONE CALL 21-30 MIN [id number] [id number] 393 Diagnos is: ICD-10- CM F43.12 Post-tr aumatic stress disorde r, chronic CASADY,TAR A E 08/09 [facility] [place] [facility] PSYTX W PT 30 MINUTES 34028-8.65 [id number] Diagnos is: ICD-10- CM Z59.02 Unshelt ered BUD Byrd P 08/[address] [facility] Outpatient Encounter [id number] [id number] 08/12 [facility] Outpatient Encounter [id number] [id number] 08/12 [facility] Outpatient Encounter [id number] [id number] ALEX BECK 08/15 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 KIRANALEX JEROMY 08/15 [facility] [place] [address] [place] [facility] PSYTX W PT 45 MINUTES 13808-5.65 [id number] 446 Diagnos is: ICD-10- CM Z59.02 Unshelt ered homeles BUD Brewster P 08/[address] [facility] PSYTX W PT 60 MINUTES [id number] [id number] 616 Diagnos is: ICD-10- CM F43.10 Post-tr aumatic stress disorde r, unspeci fied TYRESE,SHE LBY L 08/15 [facility] Outpatient Encounter [id number] [id number] 08/17 [facility] HC PRO PHONE CALL 11-20 MIN [id number] [id number] Diagnos is: ICD-10- CM F43.12 Post-tr aumatic stress disorde r, chronic CASADY,TAR A E 08/24 [facility] Outpatient Encounter [id number] [id number] Diagnos is: ICD-10- CM F43.10 Post-tr aumatic stress disorde r, unspeci fied LATAL,PAWEL PO S 08/24 [facility] OFFICE O/P EST HI 40 MIN [id number] [id number] Diagnos is: ICD-10- CM F43.10 Post-tr aumatic stress disorde r, unspeci fied LATAL,PAWEL PO S 08/24 [facility] [place] [address] [place] [facility] CASE MANAGEMENT [id number] [id number] Diagnos is: ICD-10- CM Z59.02 Unshelt BUD Solis P 08/[address] [facility] PSYTX W PT 45 MINUTES [id number] [id number] 447 Diagnos is: ICD-10- CM F43.12 Post-tr aumatic stress disorde r, chronic TYRESE,SHE LBY L 08/30 [facility] HC PRO PHONE CALL 21-30 MIN [id number] [id number] 142 Diagnos is: ICD-10- CM F43.12 Post-tr aumatic stress disorde r, chronic CASADY,TAR A E 09/01 [facility] [place] [facility] [place] [facility] HC PRO PHONE CALL 5-10 MIN [id number] [id number] Diagnos is: ICD-10- CM Z59.02 UnsBUD Leblanc P 09/[address] [facility] [place] [facility] HC PRO PHONE CALL 11-20 MIN [id number] [id number] Diagnos is: ICD-10- CM Z59.02 UnshelBUD LooNE P 09/[address] [facility] [place] [facility] CASE MANAGEMENT [id number] [id number] Diagnos is: ICD-10- CM Z59.02 Unshelt BUD SolisNE P 09/[address] [facility] OFFICE O/P NEW MOD 45 MIN [id number] [id number] Diagnos is: ICD-10- CM F43.10 Post-tr aumatic stress disorde r, unspeci fied MAIRA,JEROMY NA TRIXIE E 09/12 [facility] [place] [facility] HC PRO PHONE CALL 21-30 MIN [id number] [id number] 020 Diagnos is: ICD-10- CM Z59.02 Unshelt ered BUD ByrdNE P 09/[address] [facility] PSYTX W PT 45 MINUTES 47424-4.65 [id number] 523 Diagnos is: ICD-10- CM Z59.02 Unshelt ered BUD ByrdNE P 09/[address] [facility] PSYTX W PT 60 MINUTES [id number] [id number] 078 Diagnos is: ICD-10- CM F31.89 Other bipolar disorde r LAY XIONG L 09/19 [facility] [place] [facility] PT EDUCATION NOC INDIVID [id number] [id number] Diagnos is: ICD-10- CM Z59.02 Unshelt ered BUD ByrdNE P 09/[address] [facility] [place] [facility] HC PRO PHONE CALL 5-10 MIN [id number] [id number] 139 Diagnos is: ICD-10- CM Z59.02 Unshelt ered BUD ByrdNE P 09/[address] [facility] PT EDUCATION NOC INDIVID [id number] [id number] Diagnos is: ICD-10- CM Z59.9 Problem related to housing and economi c whitley ely, SHELLEY Myrick 09/[address] [facility] PSYTX W PT 60 MINUTES [id number] [id number] Diagnos is: ICD-10- CM F31.89 Other bipolar disorde LAY Ramirez LBY L 10/03 [facility] PRO PHONE CALL 11-20 MIN [id number] [id number] Diagnos is: ICD-10- CM Z59.02 Unshelt ered homeles anel NGUYEN,BUD LAURA P 10/03 [address] [facility] Outpatient Encounter [id number] [id number] 10/04 [facility] Outpatient Encounter [id number] [id number] 10/05 [facility] PSYTX W PT 30 MINUTES 44886-7.65 [id number] Diagnos is: ICD-10- CM Z59.02 Unshelt ered homeBUD Posey LAURA P 10/09 [address] [facility] HC PRO PHONE CALL 21-30 MIN [id number] [id number] Diagnos is: ICD-10- CM Z59.9 Problem related to housing and economi c circums taneverardo, SHELLEY Myrick M 10/16 [address] [facility] [place] [facility] HC PRO PHONE CALL 21-30 MIN [id number] [id number] 119 Diagnos is: ICD-10- CM Z59.9 Problem related to housing and economi c circums jhoana, kenya PATRICK,BUD LAURA P 10/16 [address] [facility] Outpatient Encounter [id number] [id number] 10/17 [facility] Outpatient Encounter [id number] [id number] 10/17 [facility] N [facility] Outpatient Encounter [id number] [id number] 10/17 [facility] Outpatient Encounter [id number] [id number] CATE HUNG E 10/24 [facility] [place] [facility] HC PRO PHONE CALL 21-30 MIN [id number] [id number] Diagnos is: ICD-10- CM Z59.9 Problem related to housing and economi c circums tances, unsp JANOCH,MAD LAURA P 10/26 [address] [facility] Outpatient Encounter [id number] ALLEY DEL CID 10/26 [facility] [place] [address] [place] [facility] CASE MANAGEMENT [id number] [id number] Diagnos is: ICD-10- CM Z59.89 Other problem s related to housing and economi c circums tances GREEN,LEANN SEA 10/31 [address] [facility] [place] [facility] HC PRO PHONE CALL 5-10 MIN [id number] [id number] Diagnos is: ICD-10- CM Z59.9 Problem related to housing and economi c circums tances, unsp JANOCH,MAD LAURA P 11/02 [address] [facility] Outpatient Encounter [id number] [id number] 11/06 [facility] [place] [facility] HC PRO PHONE CALL 21-30 MIN [id number] [id number] Diagnos is: ICD-10- CM Z59.89 Other problem s related to housing and economi c circums tances GREEN,LEANN SEA 11/[address] [facility] Outpatient Encounter [id number] [id number] 11/09 [facility] HC PRO PHONE CALL 21-30 MIN 18634-4.65 [id number] Diagnos is: ICD-10- CM Z59.89 Other problem s related to housing and economi c whitley LARALEANN SEA 11/10 [address] [facility] CASE MANAGEMENT [id number] [id number] Diagnos is: ICD-10- CM Z59.89 Other problem s related to housing and economi c whitley LARALEANN SEA 11/14 [address] [facility] OFFICE O/P EST MOD 30 MIN [id number] [id number] Diagnos is: ICD-10- CM F10.20 Alcohol depende nce, uncompl icated MAIRA,AN NA TRIXEI E 11/14 [facility] Outpatient Encounter [id number] [id number] 11/14 [address] [facility] Outpatient Encounter [id number] [id number] 11/15 [facility] Outpatient Encounter [id number] [id number] 11/16 [facility] HC PRO PHONE CALL 21-30 MIN [id number] [id number] 064 Diagnos is: ICD-10- CM F10.20 Alcohol depende nce, uncompl icated CASADY,TAR A E 11/20 [facility] HC PRO PHONE CALL 11-20 MIN [id number] [id number] Diagnos is: ICD-10- CM 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 ALEX Crenshaw 11/21 [facility] [place] [address] [place] [facility] CASE MANAGEMENT 45630-2.65 [id number] Diagnos is: ICD-10- CM Z59.89 Other problem s related to housing and economi c circums taneverardo GREEN,ELANN SEA 11/[address] [facility] Outpatient Encounter [id number] [id number] 11/23 [facility] HC PRO PHONE CALL 5-10 MIN [id number] [id number] Diagnos is: ICD-10- CM 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 ALEX BECK 11/29 [facility] [place] [address] [place] [facility] CASE MANAGEMENT [id number] [id number] Diagnos is: ICD-10- CM Z59.89 Other problem s related to housing and economi c circums jhoana GREEN,LEANN SEA 11/[address] [facility] [place] [facility] CASE MANAGEMENT [id number] [id number] Diagnos is: ICD-10- CM Z59.89 Other problem s related to housing and economi c circums tances GREEN,LEANN SEA 12/[address] [facility] Outpatient Encounter [id number] [id number] 12/05 [facility] [place] [facility] Outpatient Encounter [id number] [id number] 12/[address] [facility] Outpatient Encounter [id number] [id number] 689 12/[address] [facility] Outpatient Encounter [id number] [id number] 12/07 [facility] Outpatient Encounter [id number] [id number] 12/08 [facility] Outpatient Encounter [id number] [id number] 261 12/08 [facility] [place] [facility] Outpatient Encounter [id number] [id number] 660 12/[address] [facility] Outpatient Encounter [id number] [id number] 12/11 [facility] Out[facility] Encounter [id number] [id number] 12/13 [facility] Outpatient Encounter [id number] [id number] 3 12/14 [facility] PSYTX W PT 30 MINUTES 76944-2.65 [id number] Diagnos is: ICD-10- CM F10.20 Alcohol depende nce, uncompl icated MARIE CLAROS 12/15 [facility] Outpatient Encounter [id number] [id number] 12/22 [facility] OFFICE O/P EST MOD 30 MIN 52171-3.65 [id number] Diagnos is: ICD-10- CM F10.20 Alcohol depende nce, uncompl icated JEROMY RAO 12/22 [facility] EMERGENCY DEPT VISIT [facility] [id number] [id number] Diagnos is: ICD-10- CM F10.20 Alcohol depende nce, uncompl icated MUDALLAL,O MAR 12/22 [facility] EMERGENCY DEPT VISIT [facility] [id number] [id number] 9 Diagnos is: ICD-10- CM F10.20 Alcohol depende nce, uncompl icated MUDALLAL,O MAR 12/22 [facility] Detoxifica tion Services for Substance Abuse Treatment 75947-2.65 [id number] Admit Reason: ALCOHOL DETOXIF ICATION KAMJONI LIMAA SIR 12/22 [facility] Inpatient Encounter [id number] [id number] APPIAH,SUSI HELLE E 12/23 [facility] Encounter [id number] [id number] APPIAH,SUSI HELLE E 12/23 [facility] Inpatient Encounter [id number] [id number] 002 APPIAH,SUSI HELLE E 12/23 [facility] Inpatient Encounter [id number] [id number] APPIAH,SUSI HELLE E 12/23 [facility] Inpatient Encounter [id number] [id number] 427 SCOTT SALES 12/23 [facility] Inpatient Encounter [id number] [id number] 520 SCOTT SALES 12/23 [facility] PSYCH DIAG EVAL W/MED SRVCS 22020-1.65 [id number] Diagnos is: ICD-10- CM F10.20 Alcohol depende nce, uncompl icated Dick VILLARREAL NGELA 12/23 [facility] HOS[facility] IP/OBS DSCHRG MGMT >30 95149-0.65 [id number] 135 Diagnos is: ICD-10- CM F10.20 Alcohol depende nce, uncompl icated LAKIA CHASE S 12/23 [facility] Inpatient Encounter [id number] 522 SUSI ARORA 12/23 [facility] [address] [address] [place] [facility] CASE MANAGEMENT [id number] [id number] Diagnos is: ICD-10- CM Z59.89 Other problem s related to housing and economi c circums tances GREEN,LEANN SEA 12/25 [facility] Outpatient Encounter [id number] 12/27 [facility] CASE MANAGEMENT [id number] Diagnos is: ICD-10- CM Z59.89 Other problem s related to housing and economi c circums tances GREEN,LEANN SEA 01/01 [facility] CASE MANAGEMENT [id number] Diagnos is: ICD-10- CM Z59.89 Other problem s related to housing and economi c circums tances GREEN,LEANN SEA 01/02 KEISHA [facility]ALDIVAR [facility] HC PRO PHONE CALL 11-20 MIN [id number] Diagnos is: ICD-10- CM F10.20 Alcohol depende nce, uncompl icated REN PEREYRA GUCCI BOB 01/02 [facility] Outpatient Encounter [id number] 01/02 [facility] Outpatient Encounter [id number] REN PEREYRA GUCCI BOB 01/02 [facility] Outpatient Encounter [id number] Diagnos is: ICD-10- CM F10.20 Alcohol depende nce, uncompl icated MICHAEL SUAZO 01/03 [facility] Outpatient Encounter [id number] Ish TIAN 01/03 [facility] PSYTX W PT 30 MINUTES [id number] Diagnos is: ICD-10- CM F31.81 Bipolar II disorde r Ish TIAN 01/03 [facility] Outpatient Encounter [id number] 01/03 [facility] Outpatient Encounter [id number] 01/03 [facility] Outpatient Encounter [id number] Ish TIAN 01/05 [facility] Outpatient Encounter [id number] Ish TIAN OSWALDO 01/08 [facility] N [facility] PSYTX W PT 60 MINUTES [id number] Diagnos is: ICD-10- CM F10.239 Alcohol depende nce with withdrdick ceja, unspeci fay Ish TIAN OSWALDO 01/09 [facility] N [facility] Outpatient Encounter [id number] 01/09 [facility] N [facility] CASE MANAGEMENT [id number] Diagnos is: ICD-10- CM Z59.89 Other problem s related to housing and economi c circums LEANN Tsai 01/[address] [facility] HC PRO PHONE CALL 11-20 MIN [id number] Diagnos is: ICD-10- CM F10.20 Alcohol depende nce, uncompl icated REN PEREYRA 01/15 [facility] Outpatient Encounter [id number] 01/15 [facility] N [facility] Outpatient Encounter [id number] REN PEREYRA 01/15 [facility] OFFICE O/P EST MOD 30 MIN [id number] Diagnos is: ICD-10- CM F43.10 Post-tr aumatic stress disorde r, unspeci fiJEROMY Briscoe 02/02 [facility] N [facility] Outpatient Encounter [id number] 02/20 [facility] Outpatient Encounter [id number] 03/07 [facility] CASE MANAGEMENT [id number] Diagnos is: ICD-10- CM Z59.89 Other problem s related to housing and economi c circums taneverardo GREEN,LEANN SEA 03/09 [facility] Outpatient Encounter [id number] GREEN,LEANN SEA 03/09 [facility] Outpatient Encounter [id number] GREEN,LEANN SEA 03/09 [facility] OFFICE O/P EST MOD 30 MIN [id number] Diagnos is: ICD-10- CM F43.10 Post-tr aumatic stress disorde r, unspeci fied JEROMY RAO E 03/22 [facility] Outpatient Encounter [id number] 03/27 [facility] Outpatient Encounter [id number] Ish TIAN 03/27 [facility] QNHP OL DIG ASSMT&MGMT 5-10 [id number] Diagnos is: ICD-10- CM F43.10 Post-tr aumatic stress disorde r, unspeci fied BELLA BUSTOSYN S 03/27 [facility] HC PRO PHONE CALL 11-20 MIN [id number] Diagnos is: ICD-10- CM F10.220 Alcohol depende nce with intoxic ation, uncompl icated Ish TIANTTA 03/27 [facility] Outpatient Encounter [id number] 04/01 [facility] CRISIS INTERVEN SVC, 15 MIN [id number] Diagnos is: ICD-10- CM F43.12 Post-tr aumatic stress disorde r, chronic O'OJ,CO LLEEN E 04/01 [facility] HL BHV ASSMT/REAS SESSMENT [id number] Diagnos is: ICD-10- CM Z78.9 Other specifi ed health status MORE LOPEZ 04/03 [facility] Outpatient Encounter [id number] MARIE CLAROS 04/04 [facility] Outpatient Encounter [id number] 04/04 [facility] Outpatient Encounter [id number] 04/05 [facility] Outpatient Encounter [id number] JAYRO ANTONIO 04/06 [facility] Outpatient Encounter [id number] REN PEREYRA LISBETH 04/06 [facility] HC PRO PHONE CALL 5-10 MIN [id number] Diagnos is: ICD-10- CM F10.20 Alcohol depende nce, uncompl icated REN PEREYRA LISBETH 04/09 [facility] Outpatient Encounter [id number] REN PEREYRA LISBETH 04/[address] [facility] CASE MANAGEMENT [id number] Diagnos is: ICD-10- CM Z59.89 Other problem s related to housing and economi c LEANN Leal 04/09 [facility] OFFICE O/P EST MOD 30 MIN [id number] Diagnos is: ICD-10- CM F43.10 Post-tr aumatic stress disorde r, unspeci fiJEROMY Briscoe 05/04 [facility] Outpatient Encounter [id number] 05/07 [facility] N [facility] Outpatient Encounter [id number] Ish TIAN 06/07 [facility] PRO PHONE CALL 11-20 MIN [id number] Diagnos is: ICD-10- CM F10.20 Alcohol depende nce, uncompl icated MARIE CLAROS 06/08 [facility] EST MOD 30 MIN [id number] Diagnos is: ICD-10- CM F43.10 Post-tr aumatic stress disorde r, unspeci JEROMY Dorantes E 06/29 [facility] Outpatient Encounter [id number] JAYLANIsh OSWALDO 07/25 [facility] PH1 ASSMT&MGMT NQHP 5-10 [id number] Diagnos is: ICD-10- CM F10.220 Alcohol depende nce with intoxic ation, uncompl icated Ish TIAN 07/25 [facility] SYNCH AUDIO-ONLY EST MOD 30 [id number] Diagnos is: ICD-10- CM F43.10 Post-tr aumatic stress disorde r, unspeci JEROMY Dorantes E 08/24 [facility] Outpatient Encounter [id number] 08/27 [facility] PSYTX W PT W E/M 30 MIN [id number] Diagnos is: ICD-10- CM F43.10 Post-tr aumatic stress disorde r, unspecJEROMY Bedoya E 11/08 [facility] Procedures Combined list of: 1) Procedures from Department of Veterans Affairs facilities going back up to thelast 18 months, not all VA non-surgical procedures are included; 2) All procedures from the Department of Defense facilities. Procedure Procedure Type Code Date Perfomer Comments Sourc e VARICELLA VIRUS VACCINE (LESLYE), LIVE, FOR SUBCUTANEOUS USE [facility] RE-EVAL,ATHLETIC TRAINING ESTAB PLAN OF CARE REQ:ASSES,CUR FUNC STAT WHEN DOC CHANGE;REV PLAN OF CARE,STAND,ASSESS INSTR &/LINDY ASSESS,FUNC OUTCOME W UPDATE,20 MIN LUZD-VO-EBUE W THE PATIENT &/FAMILY [facility] FOOT, ARCH SUPPORT, REMOVABLE, PREMOLDED, LONGITUDINAL, EACH [facility] INFLUENZA VIRUS VACCINE, QUADRIVALENT (CCIIV4), DERIVED FROM CELL CULTURES, SUBUNIT, PRESERVATIVE AND ANTIBIOTIC FREE, 0.5 ML DOSAGE, FOR INTRAMUSCULAR USE [facility] FITTING OF SPECTACLES, EXCEPT FOR APHAKIA; MONOFOCAL [facility] EAR MOLD/INSERT, NOT DISPOSABLE, ANY TYPE [facility] PSYCHIATRIC DIAGNOSTIC EVALUATION [facility] PSYCHIATRIC DIAGNOSTIC EVALUATION [facility] TELE ASSESS & MGT SRV PROV QUAL NONPHYS HLTH CARE PRO TO EST PAT,PARENT,GUARD NOT ORIG REL ASSESS & MGT SRV PROV W/IN PREV 7 DAYS NOR LEAD ASSESS & MGT SRV/PX W/IN NXT 24 HR/SOON APT;5-10 MIN MED DIS [facility] AUDIOMETRIC TESTING OF GROUPS [facility] IMMUNIZATION ADMINISTRATION (INCLUDES PERCUTANEOUS, INTRADERMAL, SUBCUTANEOUS, OR INTRAMUSCULAR INJECTIONS); 1 VACCINE (SINGLE OR COMBINATION VACCINE/TOXOID) [facility] TELE ASSESS & MGT SRV PROV QUAL NONPHYS HLTH CARE PRO TO EST PAT,PARENT,GUARD NOT ORIG REL ASSESS & MGT SRV PROV W/IN PREV 7 DAYS NOR LEAD ASSESS & MGT SRV/PX W/IN NXT 24 HR/SOON APT;5-10 MIN MED DIS [facility] TELE ASSESS & MGT SRV PROV QUAL NONPHYS HLTH CARE PRO TO EST PAT,PARENT,GUARD NOT ORIG REL ASSESS & MGT SRV PROV W/IN PREV 7 DAYS NOR LEAD ASSESS & MGT SRV/PX W/IN NXT 24 HR/SOON APT;5-10 MIN MED DIS [facility] PSYCHOLOGICAL TSTING (INCL PSYCHODIAG ASSESSMNT, EMOTITY, INTELLECTUAL ABILITIES, PERSONALITY &PSYCHOPATHOLOGY, EG, MMPI), ADMINISTERED COMPUTER, W QUALIFIED HEALTH OVERLOCK COLLAR SETTER INTERPRET &RPT 018 [facility] Audiometry Group Testing Audiometry Group Testing 90254 MANUEL BASURTO [facility] Venipuncture Venipuncture 15432 YESSENIA LEE [facility] RBC G6PD Screening RBC G6PD Screening 39238 02/02 YESSENIA LEE [facility] Td Vaccine Seven Years Of Age And Above Preservative Free Td Vaccine Seven Years Of Age And Above Preservative Free 89988 YESSENIA LEE [facility] Immunization Administration Each Additional Vaccine Immunization Administration Each Additional Vaccine 44757 YESSENIA LEE [facility] Immunization Administration One Vaccine Immunization Administration One Vaccine 99715 YESSENIA LEE [facility] Preventive Med Standardized Depre ion Screening: Negative For Symptoms Preventive Med Standardized Depression Screening: Negative For Symptoms [id number] YESSENIA LEE During a [id number] encounter, I personally reviewed the responses given on the PHQ8 or the SAT by the individual RICHARD ProTip which were recorded by the individual on the [facility] website or the required hardcopy SAT. [facility] Non-Physician Phone Call To Patient/Provider Brief (5-10min) Non-Physician Phone Call To Patient/Provider Brief (5-10min) [phone] SARA MACK [facility] Psychologic Testing And Report Administered By Computer Psychologic Testing And Report Administered By Computer [phone] KEVIN CATES [facility] Non-Physician Phone Call To Patient/Provider Brief (5-10min) Non-Physician Phone Call To Patient/Provider Brief (5-10min) 84278 018 SARA MACK [facility] Vaccines Viral Varicella (Active) Vaccines Viral Varicella (Active) 14125 018 MESHA GOMEZ [facility] Immunization Administration One Vaccine Immunization Administration One Vaccine 80917 018 MESHA GOMEZ [facility] Immunization Administration Each Additional Vaccine Immunization Administration Each Additional Vaccine 39290 018 MESHA GOMEZ [facility] Athletic Training Re-evaluation Athletic Training Re-evaluation 97294 018 CIARA KEMP [facility] Exercises A isted Exercises For ROM Exercises Assisted Exercises For ROM 34730 CIARA KEMP [facility] Foot, arch support, removable, premolded, longitudinal, each CIARA KEMP [facility] Physical Therapy Education Orthotics Training Physical Therapy Education Orthotics Training 24626 VIRIDIANACIARA [facility] Vaccines Viral Varicella (Active) Vaccines Viral Varicella (Active) 48735 018 [facility] Immunization Admin Intranasal / Oral Each Additional Vaccine Immunization Admin Intranasal / Oral Each Additional Vaccine 40485 018 [facility] Vaccines Adenovirus Type 4 Live, For Oral Use Vaccines Adenovirus Type 4 Live, For Oral Use 02248 018 [facility] Vaccines Adenovirus Type 7 Live, For Oral Use Vaccines Adenovirus Type 7 Live, For Oral Use 66665 018 [facility] Immunization Administration Each Additional Vaccine Immunization Administration Each Additional Vaccine 83026 018 [facility] Vaccines Viral Polio, Inactivated (Salk) Vaccines Viral Polio, Inactivated (Salk) 85839 018 [facility] Tdap Vaccine Tdap Vaccine 18481 018 [facility] Immunization Administration One Vaccine Immunization Administration One Vaccine 50595 018 [facility] Determination Of Refractive State Determination Of Refractive State 25359 018 VLAD CHEATHAM [facility] Spectacles Services Fitting Monofocals (Not For Aphakia) [facility] [facility] Fitting Monofocals (Not For Aphakia) 73323 018 VLAD CHEATHAM Ophthalmological New Patient Start Intermediate Level Care Ophthalmological New Patient Start Intermediate Level Care 14261 018 VLAD CHEATHAM [facility] Non-Physician Phone Call To Patient/Provider Brief (5-10min) Non-Physician Phone Call To Patient/Provider Brief (5-10min) 69002 REY MAN [facility] Psychiatric Evaluation Psychiatric Evaluation 73051 ALYCIA MCGUIRE [facility] Psychiatric Therapy Preparation of Psychiatric Status Report Psychiatric Therapy Preparation of Psychiatric Status Report 53143 ALYCIA MCGUIRE [facility] Social History Combined list of available smoking, tobacco, and other social history from Department of Defense and Veterans Affairs facilities. Social History Type Response Date Comment Sourc e This section is an empty social history section. DoD
--- OUTSIDE RECORDS SUMMARY | 2025-01-14 08:46 | XMS_ITS | Clinical Summary ---
Author Organization [facility] Address [address] [place] [address] Care Team Providers Care Coal Tram Driver Name Role Phone Morgan Turner MD Primary Care Provider [phone] Ashish Morrow MD Unavailable [phone] Allergies Active Allergy Reactions Criticality Noted Date Comments Permethrin Hives Medium 08/08/2024 Allen odor spray cashmere rodas Levonorgestrel-Ethinyl Estrad Vomiting Low 01/18/2024 Medications [...] (two) times a day 60 tablet 2 5 025 Active Hospital, Clinic, or Other Facility [...] b.i.d. Assessment & Plan (08/20/2024 4:15 PM FACSIMILE MACHINE OPERATOR): Stable, generally well controlled, occasional episodes, generally gets relief on own Continue pantoprazole 40 mg b.i.d.; encourage avoidance of inciting substances including alcohol Hematemesis with nausea 06/08/2024 Upper GI bleed 06/07/2024 Chronic alcoholic gastritis 04/12/2024 Assessment & Plan (08/30/2024 4:37 PM FACSIMILE MACHINE OPERATOR): Not well controlled; continues to have some abdominal pain, nausea, decreased appetite well drinking alcohol Encourage alcohol cessation Continue pantoprazole 40 mg b.i.d. Assessment & Plan (07/23/2024 11:09 AM FACSIMILE MACHINE OPERATOR): Currently on pantoprazole. EGD scheduled in the summer. Assessment & Plan (07/17/2024 4:44 PM FACSIMILE MACHINE OPERATOR): Stable, well controlled; no current stomach pain, [...] 01/18/2024 Assessment & Plan (08/30/2024 4:36 PM FACSIMILE MACHINE OPERATOR): Stable, well controlled; follows with [facility] for medication management; continue quetiapine 25 mg nightly Assessment & Plan (08/20/2024 4:14 PM FACSIMILE MACHINE OPERATOR): Stable, generally well controlled, no recent episodes [...] disorder Assessment & Plan (07/23/2024 11:11 AM FACSIMILE MACHINE OPERATOR): Has supportive friend and father. Encouraged working [...] gastritis Assessment & Plan (08/30/2024 4:36 PM FACSIMILE MACHINE OPERATOR): Not well controlled; patient reports drinking about [...] withdrawal Assessment & Plan (08/20/2024 4:14 PM FACSIMILE MACHINE OPERATOR): Not well controlled, not currently drinking, but has had severe cravings, patient has multiple episodes episodic binge drinking Patient had generally has good relief with the medication Continue Vivitrol every 30 days; acamprosate 666 mg t.i.d. Assessment & Plan (07/23/2024 11:11 AM FACSIMILE MACHINE OPERATOR): Will proceed to [facility] ED for Vivitrol injection today. Will return for her follow-up appointment in 10 days with PCP. Encouragement provided. Safety reviewed. Assessment & Plan (07/17/2024 4:43 PM FACSIMILE MACHINE OPERATOR): Stable, improving; no alcohol since last visit; due for injection on July 15, but would like to delay in order to allow for some alcohol use Discourage delay; would continue naltrexone monthly; add acamprosate 2 tablets t.i.d. Assessment & Plan (06/07/2024 4:51 PM FACSIMILE MACHINE OPERATOR): Not well controlled, can had recent relapse, [...] doing better at this time; engaged with acetone recovery worker; discussion with Peer acetone recovery worker today Encouraged continued work towards complete cessation [...] intoxication without complication 02/02 Acute pancreatitis 10/29/2022 Encounters Date Type Department Care Team Description 01/08/2025 Telephone [facility] [address] [phone] Morgan Turner MD 12/14/2024 Nurse Triage [facility] [address] [phone] Morgan Turner MD 12/11/2024 9:15 AM CDT Clinical Support [facility] [address] [phone] Alcohol dependence with uncomplicated intoxication (HCC) (Primary Dx) 12/11/2024 Telephone [facility] [address] [phone] Morgan Turner MD Med Refill 12/11/2024 Telephone [facility] [address] [phone] Nena Souza MA Vivitrol Injection Re-Order 12/10/2024 Telephone [facility] [address] [phone] Morgan Turner MD Medical Question/Miscellane ous 12/10/2024 Telephone [facility] at [address] [place] [phone] La Tolentino 11/30/2024 Telephone [facility] at [address] [place] [phone] Hailey Arango Appointment 11/29/2024 Telephone [facility] [address] [phone] Morgan Turner MD Vivitrol Injection 11/08/2024 1:00 PM CDT Clinical Support [facility] [address] [phone] Alcohol dependence with uncomplicated intoxication (HCC) (Primary Dx) 11/08/2024 Telephone [facility] [address] [phone] Morgan Turner MD Vivitrol Injection Re-order 11/01/2024 1:45 PM CDT Office Visit [facility] [address] [phone] Morgan Turner MD Alcohol dependence with uncomplicated intoxication (HCC) (Primary Dx); Major depressive disorder with single episode, in partial remission; Generalized anxiety disorder; Erosive esophagitis 11/01/2024 Documentation [facility] [address], [place] [phone] Jhon Dias 10/30/2024 Telephone [facility] at [address] [place] [phone] Hailey Arango EGLandy Instructions 10/30/2024 Telephone [facility] [address] [phone] Morgan Turner MD Vititrol Injection from Last 3 Months Immunizations Immunization Administration Dates Next Due Adenovirus [...] OPV 1995,1995,1995 Tdap 09/30/2017,09/26/2009 Varicella 11/02/2017, 8,04/21/2010,03/20 Medical History Medical History Date Comments Gastritis Shoulder pain Family History Medical History Relation Name Comments [...] e alcohol) Pint of alcohol a day [facility] Utilities Answer Date Recorded In [...] chur ch or roman catholic services? Never 07/25/2024 Do you belong to [...] any time in the past 12 [facility], were you homeless or living in a [facility] (including now)? No 07/25/2024 Personal Safety Answer [...] on file Legal Sex Female 6:50 PM FACSIMILE MACHINE OPERATOR Gender Identity Not on file Sexual [...] Description 03/05/2025 1:00 PM CDT Hospital Encounter [facility] [address] [place] [address] Ashish Morrow MD [address] [facility] [address] [address] [place] [address] 03/05/2025 1:00 PM CDT - 03/05/2025 1:30 PM CDT Surgery [facility] [address] [place] [address] Ashish Morrow MD [address] [facility] [facility] [address] [place] [address] ESOPHAGOGASTRODUODENOSCOPY Scheduled Procedures Name Priority Associated Diagnoses Date/Ti me ESOPHAGOGASTRODUODENOSCOPY Erosive esophagitis 03/05/2025 1:00 PM CDT Health Maintenance Due Date Last Done Comments Cervical Cancer Screening 1995 Hepatitis C Screening 1995 Regular Well Visit/Exam 18-64 2013 Pneumococcal vaccine <65 (1 of 2 - PCV) 2014 Covid-19 Vaccine (2 - 2023-2 5 season) 2024 05/27/2021 Depression Screening 01/17/2025 01/18/2024, 01/18/20 24 Influenza Vaccine (#1) 2025 , 08/06/2020, 04/21/2019, Additional history exists DTaP/Tdap/Td Vaccine (7 - Td or Tdap) 10/01/2027 09/30/2017, 09/26/2009, 03/15/2000, Additional history exists HPV Vaccines Completed 04/21/2010, 09/26/2009 Varicella Vaccines Completed 11/02/2017, 0 09/30/2017, 04/21/2010, Additional history exists Insurance [facility] Advance Directives For more information, please contact: [phone] * Full Code (Latest Code Status on File) Date Activated Date Inactivated Comments 06/09/2024 9:37 AM 06/09/2024 7:14 PM * Full Code Date Activated Date Inactivated Comments 06/08/2024 3:33 AM 06/09/2024 9:37 AM * Full Code Date Activated Date Inactivated Comments 01/11/2024 7:42 AM 01/13/2024 6:46 PM Care Teams Coal Tram Driver Relationship Specialty Start Date End Date Morgan Turner MD [address] [place] [address] PCP - General Family Medicine 01/18/24 Ashish Morrow MD [address] [place] [address] Consulting Physician Gastroenterology 06/09/24
--- NOTE | 2025-01-14 09:05 | PM.SD2 ---
Same Day Admit/Disch: HPI History of Present Illness Chief complaint: Alcohol withdrawal Narrative: Nguyen Saleh is a 29 year old female who presented to the ED with concern for alcohol withdrawal. Patient had binge drinking episodes have been this time she started drinking since this Tuesday until Tuesday night. Patient reports she started feeling fuzzy tingling in the extremities tremors and nausea shortly prior to coming to the hospital. She called EMS who gave her IV Zofran. In the ED her vitals were stable. Initial CIWA score noted to be 14. IV fluid and Ativan was given in the ED. Laboratory workup revealed WBC of 5.2 hemoglobin 10.8 platelet of 241. Creatinine of 0.6 electrolytes were normal bicarb of 19. LFTs were normal ethyl alcohol less than 10 salicylate less than 1 acetaminophen less than 10. PMFSH Past Medical History Medical History Alcohol abuse PTSD (post-traumatic stress disorder) Alcoholism Social History Social History Smoking status: Former smoker Tobacco type: e-cigarettes/vaping Alcohol intake: current Drinks per week: 30 Substance use: current Substance use type: marijuana Do You Feel Safe in your Home?: Yes Lack of Transportation: No Lack of Food: Never True Current Housing: I Have Housing Concerned About Future Housing: No Difficulty Paying Gas/Electric Bills: No Difficulty Paying for Meds: No Currently Unemployed: No Education: High School Diploma/GED Difficulty w/ Childcare or Family Care: No Living arrangements: alone Occupation/Education: unemployed Sexual Orientation (if Verbalized by the Patient): Lesbian, Gordon, or Homosexual Spiritual care concerns: No Same Day Admit/Disch: Med Pre-admit Medications Home Medications ?Medication ?Instructions ?Recorded ?Confirmed ?Type folic acid 1 mg tablet 1 mg PO DAILY #30 tabs 11/19/23 01/14/25 Rx chlordiazepoxide HCl 25 mg capsule 25 mg PO BID PRN alcohol 04/07/24 01/14/25 Rx withdrawal #30 caps pantoprazole 40 mg tablet,delayed 40 mg PO HS #30 tabs 04/07/24 01/14/25 Rx release naltrexone microspheres 380 mg 380 mg IM MONTHLY 01/14/25 01/14/25 History intramuscular suspension,extended release (Vivitrol) Review of Systems Review of Systems Review of system could not be completed Exam Narrative: Not examined as she left against medical advise before my evaluation DS: Data Data Completed and Pending Labs on day of discharge: Labs from last 24 hours 01/14/25 04:38 WBC 5.2 RBC 4.68 Hgb 10.8 L Hct 33.5 L MCV 71.6 L MCH 23.1 L MCHC 32.2 RDW 15.4 H Plt Count 241 MPV 10.3 Immature Gran % (Auto) 0.0 Neut % (Auto) 43.7 L Lymph % (Auto) 44.1 Sabine % (Auto) 7.4 Eos % (Auto) 4.0 Baso % (Auto) 0.8 Lymph # (Auto) 2.31 Sabine # (Auto) 0.4 Eos # (Auto) 0.2 Baso # (Auto) 0.0 Abs Immat Gran (auto) 0.00 Absolute Neuts (auto) 2.3 Absolute Nucleated RBC 0.000 Band Neutrophils % Not Reportable Nucleated RBC % 0.0 Platelet Estimate Adequate Hypochromasia 1+ Poikilocytosis 1+ Anisocytosis 1+ Ovalocytes 2+ Schistocytes None seen Sodium 137 Potassium 3.7 Chloride 106 Carbon Dioxide 19 L Anion Gap 12 BUN 3 L Creatinine 0.63 L Estim Creat Clear Calc 113 Estimated GFR > 60 Glucose 91 Calcium 9.4 Magnesium 2.1 Total Bilirubin 0.3 AST 36 ALT 19 Alkaline Phosphatase 65 Total Protein 8.2 Albumin 4.4 Salicylates < 1.0 L Acetaminophen < 10 L Ethyl Alcohol < 10 DS: Summary Hospital Course Hospital Course: Patient was admitted for concern for symptoms of alcohol withdrawal. CIWA score initial was 14. Received IV Ativan. She was admitted for further treatment. She however was adamant at leaving due to her social reasons as soon as she reached the medical floor. She was alert and oriented x3. She left against medical advise prior to my evaluation. Time Spent with Patient Time attestation: Total time spent providing and/or coordinating discharge services: 35 minutes DS: Admitting Diagnosis Discharge Date 01/14/25 Admitting Diagnosis Alcohol withdrawal Discharge Plan Discharge Patient Disposition: Left Against Medical Advice Patient Language: Frisian Discharge Medications: No Action folic acid 1 mg tablet 1 mg PO DAILY Qty: 30 0RF chlordiazepoxide HCl 25 mg capsule 25 mg PO BID PRN (Reason: alcohol withdrawal) Qty: 30 0RF pantoprazole 40 mg tablet,delayed release (DR/EC) 40 mg PO HS Qty: 30 0RF Vivitrol 380 mg suspension,extended rel recon 380 mg IM MONTHLY Date of admission: 01/14/25 05:32 Primary Care Provider: Johnny,Morgan Admitting Provider: Sailaja Baron Attending physician on admission: Sailaja Baron Condition: Improved
== END 2025-01-14 08:40 | disposition left against medical advice (07) ==
LOC: ANHED 05:38 → ANHIMU 01-15 07:07
PROVIDERS: Admitting Provider General Practice; Emergency Provider Emergency Medicine; PCP Hospitalist; Visit Provider Internal Medicine
DX: F10.139 Alcohol abuse with withdrawal, unspecified (principal); F41.8 Other specified anxiety disorders; F17.290 Nicotine dependence, other tobacco product, uncomplicated
CPT/HCPCS: 36415; 80053; 80143; 80179; 82077; 83735; 85025; 96361; 96374; 99285; G0378; G0379; J2060; J7030

== ENCOUNTER 2025-01-15 16:35 | Emergency (ER) | payer OTHER, SELFPAY ==
[2025-01-15 16:36] VITALS: BP 116/102; PULSE 81; RESP 18; TEMP 36.6; O2SAT 100
[2025-01-15 17:28] LABS: Hematocrit 32.2 % (37.0-47.0); Hemoglobin 10.2 g/dL (12.0-15.0); Immature Granulocyte Percent A 0.2 % (0-0.5); Lymphocytes Absolute Auto 2.14 K/mm3 (0.9-3.2); Mean Corpuscular HGB Conc 31.7 g/dl (32-36); Mean Corpuscular Hemoglobin 22.8 pg (26-34); Mean Corpuscular Volume 71.9 fl (80-100); Nucleated Red Blood Cells Absolute Auto 0.000 K/mm3 (0.0-0.012); Nucleated Red Blood Cells Perc 0.0 % (0.0-0.2); Platelet Count Result 247 k/mm3 (150-375); Red Blood Count 4.48 M/mm3 (4.2-5.4); White Blood Count 6.6 K/mm3 (4.5-10.0)
--- OUTSIDE RECORDS SUMMARY | 2025-01-15 17:34 | XMS_ITS | Encounter Summary ---
Author Organization [facility] Healthcare Address [address] [place] [address] Care Team Providers Care Recycle Coordinator Name Role Phone No, Physician Primary Care Provider [phone] Morgan Turner MD Primary Care Provider [phone] Ashish Morrow MD Unavailable [phone] Silvia Zhang MA Unavailable Unavailable Loida Aburto LCSW Unavailable [phone] Encounter Details Date Type Department Care Team (Late st Contact Info) Description 01/16/2024 [facility] Post Discharge Follow up phone call [address] [address] Dhara Laughlin, RN Social History Tobacco Use Types Packs/Day Years Used Date Smoking Tobacco: Every Day Vaping Alcohol Use Standard Drinks/Week Comments Yes 0 (1 standard drink = 0.6 oz pur e alcohol) Pint of alcohol a day [facility] Utilities Answer Date Recorded In the past 12 months has th [employer] electric, gas, oil, or water company threatened [...] week 01/12/2024 How often do you attend [facility] or zoroastrian services? Never 01/12/2024 Do you belong to any clubs o r organizations such as yarsanism groups, unions, fraternal or athletic groups, or [...] any time in the past [address] [facility], were you homeless or living in a usp (including now)? 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 Gender Identity Not on file Sexual Orientation [...] Description 03/05/2025 1:00 PM CDT Hospital Encounter [address] [address] Ashish Morrow MD [address] [facility] [place] [address] 03/05/2025 1:00 PM CDT - 03/05/2025 1:30 PM CDT Surgery [address] [address] Ashish Morrow MD [address] [place] [address] [place] [address] ESOPHAGOGASTRODUODENOSCOPY Scheduled Procedures Name Priority Associated Diagnoses Date/Ti in ESOPHAGOGASTRODUODENOSCOPY Erosive esophagitis 03/05/2025 1:00 PM CDT documented as of this encounter Visit Diagnoses Not on filedocumented in this encounter Care Teams Recycle Coordinator Relationship Specialty Start Date End Date No, Physician PCP - General 01/11/24 01/17/24 Morgan Turner MD [address] [place] [address] PCP - General Family Medicine 01/18/24 Ashish Morrow MD [address] [facility] [place] [address] Consulting Physician Gastroenterology 06/09/24 Silvia Zhang, MERLE [address] [facility] [address] [place] [address] ACO Care Correctional Nurse 07/24/24 07/24/24 Loida Aburto, PLASTIC TOOL MAKER [address] [facility] [address] [place] [address] Flight Physician 07/25/24 09/06/24 documented as of this encounter
--- OUTSIDE RECORDS SUMMARY | 2025-01-15 17:34 | XMS_ITS | Encounter Summary ---
Author Organization [facility] Healthcare Address [address] [place] [address] Care Team Providers Care Facialist Name Role Phone Morgan Turner MD Primary Care Provider [phone] Ashish Morrow MD Unavailable [phone] Loida AburtoW Unavailable Encounter Details Date Type Department Care Team (Late st Contact Info) Description 07/25/2024 Telephone Family Physicians [facility] [address] [facility] [place] [address] Morgan Turner MD [address] [place] [address] Social History Tobacco Use Types Packs/Day Years Used Date Smoking Tobacco: Every Day Vaping Alcohol Use Standard Drinks/Week Comments Yes 0 (1 standard drink = 0.6 oz pur e alcohol) Pint of alcohol a day [facility] Utilities Answer Date Recorded In the past 12 months has [employer], gas, oil, or water company threatened [...] often do you attend chur ch or congregation services? Never 07/25/2024 Do you belong to any clubs o r organizations such as amish groups, unions, fraternal or athletic groups, or [...] any time in the past 12 m [facility], were you homeless or living in a custodial (including now)? 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 SUPERVISOR Gender Identity Not on file Sexual Orientation Not on file documented as of this encounter Miscellaneous Notes * Telephone Encounter - Bridget Geiger - 07/25/2024 9:07 AM CST ERIN SUPERVISOR documented in this encounter Plan of Treatment Upcoming Encounters Date Type Department Care Team (Latest Contact Info) Description 03/05/2025 1:00 PM CDT Hospital Encounter [address] [address] Ashish Morrow MD [address] [place] [address] [place] [address] 03/05/2025 1:00 PM CDT - 03/05/2025 1:30 PM CDT Surgery [address] [address] Ashish Morrow MD [address] [place] [address] [place] [address] ESOPHAGOGASTRODUODENOSCOPY Scheduled Procedures Name Priority Associated Diagnoses Date/Ti mn ESOPHAGOGASTRODUODENOSCOPY Erosive esophagitis 03/05/2025 1:00 PM CDT documented as of this encounter Visit Diagnoses Not on filedocumented in this encounter Care Teams Facialist Relationship Specialty Start Date End Date Morgan Turner MD [address] [place] [address] PCP - General Family Medicine 01/18/24 Ashish Morrow MD [address] [place] [address] [place] [address] Consulting Physician Gastroenterology 06/09/24 Loida Aburto, [address] [place] [address] Fuel Injection Servicer 07/25/24 09/06/24 documented as of this encounter
--- OUTSIDE RECORDS SUMMARY | 2025-01-15 17:34 | XMS_ITS | Encounter Summary ---
Author Organization [facility] Healthcare Address [address] [place] [address] Care Team Providers Care Instructional Coordinator Name Role Phone Morgan Turner MD Primary Care Provider [phone] Ashish Morrow MD Unavailable Reason for Visit * Reason Comments Injections Vivitrol Injection Encounter Details Date Type Department Care Team (Late st Contact Info) Description 01/14/2025 1:15 PM CDT Clinical Support Family Physicians of [address] [address] Social History Tobacco Use Types Packs/Day Years Used Date Smoking Tobacco: Every Day Vaping Alcohol Use Standard Drinks/Week Comments Yes 0 (1 standard drink = 0.6 oz pur e alcohol) Pint of alcohol a day [facility] Utilities Answer Date Recorded In the past 12 months has [employer], gas, oil, or water [employer] threatened to shut off services in your [...] attend chur ch or rastafari services? 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 Gender Identity Not on file Sexual Orientation Not on file documented as of this encounter Plan of Treatment Upcoming Encounters Date Type Department Care Team (Latest Contact Info) Description 03/05/2025 1:00 PM CDT Hospital Encounter [address] [address] Ashish Morrow MD [address] [facility] [address] M[address] [place] [address] 03/05/2025 1:00 PM CDT - 03/05/2025 1:30 PM CDT Surgery [address] [address] Ashish Morrow MD [address] [facility] [address] [place] [address] ESOPHAGOGASTRODUODENOSCOPY Scheduled Procedures Name Priority Associated Diagnoses Date/Ti ma ESOPHAGOGASTRODUODENOSCOPY Erosive esophagitis 03/05/2025 1:00 PM CDT documented as of this encounter Visit Diagnoses Not on filedocumented in this encounter Administered Medications Active Administered Medications - up to 3 most recent administrations Medication Order MAR Action Action Date Dose Rate Site naltrexone microspheres (VIVITROL) intramuscular injection 380 mg 380 mg, intramuscular, Every 30 days, First dose on Tue12/11/24 at 0945, Refrigerate. Prior to reconstitution, allow drug vial and provided diluent to reach room temperature (~45 minutes). Refer to package insert for reconstitution and administration instructions.Indications:Alco hol dependence with uncomplicated intoxication (HCC) Given 01/14/2025 1:27 PM CDT 380 mg Left Deltoid Given 12/11/2024 9:17 AM CDT 380 mg Ri ght Dorsogluteal/Buttock documented in this encounter Care Teams Instructional Coordinator Relationship Specialty Start Date End Date Morgan Turner MD [address] [place] [address] PCP - General Family Medicine 01/18/24 Ashish Morrow MD [address] [place] [address] [place] [address] Consulting Physician Gastroenterology 06/09/24 documented as of this encounter
--- OUTSIDE RECORDS SUMMARY | 2025-01-15 17:34 | XMS_ITS | Clinical Summary ---
Author Organization [facility] [employer] Address [address] [place] [address] Care Team Providers Care Trimming Inspector Name Role Phone Unavailable Primary Care Provider Unavailabl e Source Comments [facility],non-owned Affiliates and Associated Physician Practices is amultiple site organization consisting of ambulatory clinics and hospital sitesin [place], [place], [place] and [place]. This disclosure is being madepursuant to the Care Everywhere program and may not contain all information available regarding this patient. Last updated 18.[facility] [employer] Allergies No known active allergies Medications * [...] housing, medical care, and heating? Hard 10/29/2022 [facility] of Occupat ional Health - Occupational Stress [...] place to sleep or slept in a half-way (including now)? 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
--- OUTSIDE RECORDS SUMMARY | 2025-01-15 17:34 | XMS_ITS | Data Portability ---
Author Organization [facility] Address [address] [place] [address] Assessment No assessment recorded. Plan of Treatment Reminders Order Date Submit Date Provider Last Modified By Organization Details Last Modified Time Details Appointments None recorded. Lab None recorded. Referral orthopedic referral - Please call patient to schedule 2015 016 [facility] Not available 6 11:54:00 physical therapy knee referral 2015 016 [facility] Physical, Occupational & Speech Medicine & Rehab, [address] [place], [address], 6 11:42:53 Procedures None recorded. Surgeries None [...] , knee No observ ation record ed. [facility] (Imaging) [address] [place], [address], 08/28/2015 11:26:06 08/27/19 16 08/27/2015 x-ray , knee No observ ation record ed. [email or web address] [facility] (Imaging) [address] [place], [address], 08/27/2015 22:42:38 08/28/19 16 08/27/2015 x-ray , knee No observ ation record ed. [facility] (Imaging) [address] [place], [address], 09/02/2015 12:35:59 11/11/19 19 11/10/2018 XR, ankle No observ ation record ed. [facility] (Imaging) [address] [place], [address], 11/10/2018 15:43:48 Result Notes None recorded. Problems Name Problem SNOMED Code Status Onset Date Resolution Date Notes Provider Name and Address Organization Details Recorded Time Knee joint painful on movement 585682694 Active Dheeraj Camacho MD Attn: Accounting ,[address] [place], [address] , [facility] 6 10:55:27 Problem Notes None recorded. [...] [degF] 79 /min 100 % 100 % 12085.5 21931 g 168.91 cm 21.8 kg/m2 110/78 mm[Hg] [...] SNOMED-CT Code Diagnosis ICD10 Code Diagnosis Note [id number] Dheeraj Camacho MD [facility] (Adult Med) [address] [place] [phone] 08/27/2015 09:54:18 08/27/2015 10:59:53 Knee joint painful on movement 301258074 M25.569 Health Concerns Section Related Observation LastModified by Organization Detai ls LastModified Time None Recorded Concern Status LastModified by Organization Details LastModified Time None Recorded Advance Directives Directive None Recorded Payers Insurance Date Sequence Insurance Name Policy Number Policy Russell Covered Member ID Russell Member ID Guarantor Name 10/05/2015 1 [facility] (MEDICAID HMO) Nguyen Saleh [id number] Nguyen Saleh Notes Date Note Type Note Provider Name and Address Organization Details Recorded Time 08/27/2015 text/html Right knee pain since she bumted on the corner of [place] March 2015. Dheeraj Camacho MD Attn: Accounting,[address] [place], [address], [facility] 08/27/2015 10:56:33 OBGyn Episode No OBEpisode recorded.
--- OUTSIDE RECORDS SUMMARY | 2025-01-15 17:34 | XMS_ITS | Continuity of Care Document ---
Author Organization [facility] [place] - Home/Virtual/Phone Address [address] [place] [address] Assessment No assessment recorded. Plan of Treatment Reminders Order Date Submit Date Provider Last Modified By Organization Details Last Modified Time Details Appointments Nurse Visit - Phone 15 min 025 10:45AM Zulma Dominguez RN Not available Not available Not available Lab None recorde d. Referral None recorde d. Procedures None recorde d. Surgeries None recorde d. Imaging None recorde d. Medication Orders None recorde d. Patient TargetsNo targets recorded. Patient Instructions Encounter Date Encounter Id Patient Instructions Last Modified By Organization Details Last Modified Time 01/15/2025 [id number] Medication Reconciliation Performed, concerns found and addressed during this visit Medication list updated in this EHR. Billing Guidance - Enter the correct codes on the billing tab: [id number] = RN Visits Also add: 1111f - medication reconciliation within 30 days post-discharge Dx: Z79.899 - Encounter for medication review [email or web address] Not available 01/15/2025 12:01:09 Reason for Referral None Reported. Medical Equipment None Reported. Medications Name Sig Start Date Stop Date Status Note LastModified by Organization Details LastModified Time naltrexone 50 mg tablet Take 1 tablet every day by oral route as needed. active Not Available Not Available No t Available prednisone 20 mg tablet TAKE 2 TABLETS BY MOUTH DAILY FOR 5 DAYS 01/15 completed Not Available Not Available Not Available hydroxyzine HCl 50 mg tablet Take 1 tablet as needed by oral route. active Not Available Not Available No t Available melatonin 3 mg tablet Take 1 tablet every day by oral route as needed. active Not Available Not Available No t Available chlordiazep oxide 25 mg capsule TAKE 1 CAPSULE ORALLY TWICE A DAY NEEDED FOR ALCOHOL WITHDRAWA L active Not Available Not Available No t Available pantoprazol e 40 mg tablet,no yed release TAKE 1 TABLET BY MOUTH BID active Not Available Not Available No t Available folic acid 1 mg tablet TAKE 1 TABLET BY MOUTH EVERY DAY active Not Available Not Available No t Available Vitamin B-1 100 mg tablet TAKE 1 TABLET BY MOUTH EVERY DAY active Not Available Not Available No t Available ondansetron 4 mg disintegrat ing tablet DISSOLVE 1 TABLET (4 MG) IN MOUTH EVERY 6 HOURS NEEDED FOR NAUSEA AND VOMITING active Not Available Not Available No t Available Antacid Regular Strength 200 mg-200 mg-20 mg/5 mL oral suspension TAKE 30 ML BY MOUTH FOUR TIMES DAILY NEEDED FOR INDIGESTI ON active Not Available Not Available No t Available acamprosate 333 mg tablet,no yed release Take 2 tablets 3 times a day by oral route as needed. active Not Available Not Available No t Available Vivitrol 380 mg intramuscul ar suspension, extended release INJECT 380 MG INTO THE MUSCLE EVERY 30 DAYS active Not Available Not Available No t Available Vitals None Recorded Social History None recorded. Functional Status None recorded. Mental Status None recorded. Family History Nothing Reported. Medical History No medical history recorded. Gynecological HistoryNo gynecological history recorded. Obstetrics History GPAL:G 0 P 0 0 0 0 Past Encounters Encounter ID Performer Location Encounter Start Date Encounter Closed Date Diagnosis/Indication Diagnosis SNOMED-CT Code Diagnosis ICD10 Code Diagnosis Note [id number] Zulma Dominguez RN [place] - [place]/Virt ual/Phone [id number] [place] [address] 01/15/2025 11:56:50 01/15/2025 12:34:51 Medication review due [id number] Z76.89 Long-term drug therapy [id number] Z79.899 Health Concerns Section Related Observation LastModified by Organization Detai ls LastModified Time None Recorded Concern Status LastModified by Organization Details LastModified Time None Recorded Payers Encounter Date Sequence Insurance Name Policy Number Policy Russell Covered Member ID Russell Member ID Guarantor Name 01/15/2025 1 [facility] ON OR AFTER 01/01/21 (MEDICAID REPLACEMENT - HMO) Nguyen Saleh [id number] Nguyen Saleh Notes Date Note Type Note Provider Name and Address Organization Details Recorded Time 01/15/2025 text/html Reason for med r ec need: discharge from inpatient facility stay Medication reconciliation performed with member: Yes Medication reconciliation performed using: Source 1: Member report/available medications in the home Source 2: Source 3: Source 4: Discrepancies between available sources of medications include: Education completed regarding medications. Member's PCP: Zulma Dominguez RN [address] [place] [address], [phone], Formerly [facility], [facility], [facility] 01/15/2025 12:34:44 OBGyn Episode No OBEpisode recorded.
--- OUTSIDE RECORDS SUMMARY | 2025-01-15 17:34 | XMS_ITS | Clinical Summary ---
Author Organization [facility] Address [address] [place] [address] Phone Care Team Providers Care Time Recorder Name Role Phone Provider, None Primary Care [...] = 0.6 oz pur e alcohol) pint/daily [facility] Utilities Answer Date Recorded In [...] place to sleep or slept in a longterm (including now)? Patient declined 12/02/2023 Comments Unknown [...] measures to stabilize the patient. Care Teams Time Recorder Relationship Specialty Start Date End Date Provider, None [place] PCP - General 12/02/23
--- OUTSIDE RECORDS SUMMARY | 2025-01-15 17:34 | XMS_ITS | Clinical Summary ---
Author Organization [facility] Address [address] [place] [address] Care Team Providers Care Real Estate Transaction Coordinator Name Role Phone None, Provider MD Primary [...] complete this topic Insurance MEDICAID Care Teams Real Estate Transaction Coordinator Relationship Specialty Start Date End Date None, Provider, PCP - General 03/20/18
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
--- OUTSIDE RECORDS SUMMARY | 2025-01-15 17:35 | XMS_ITS | Clinical Summary ---
Author Organization [facility] Address [address] [place] [address] Care Team Providers Care Cytologist Name Role Phone Morgan Turner MD Primary Care Provider [phone] Ashish Morrow MD Unavailable Allergies Active Allergy Reactions Criticality Noted Date Comments Permethrin Hives Medium 08/08/2024 Jay odor spray cashmere rodas Levonorgestrel-Ethinyl Estrad Vomiting Low 01/18/2024 Medications QUEtiapine (SEROquel) 25 mg tablet Take 1 tablet (25 mg total) by mouth nightly 11/15/19 24 Active naltrexone (DEPADE) 50 mg tablet [...] 3 (three) times a day 180 tablet 08/08/[address] (CAMPRAL) 333 mg EC tablet TAKE 2 TABLETS(666 MG) BY MOUTH THREE TIMES DAILY 180 tablet 10/03/19 25 Active ondansetron ODT (ZOFRAN-ODT) 4 mg disintegrating tablet Take 1 tablet (4 mg total) by mouth 08/30/19 25 Active hydrOXYzine (ATARAX) 50 mg tablet Take 1 tablet (50 mg total) by mouth every 8 (eight) hours as needed 06/29/20 24 Active chlordiazePOXIDE (LIBRIUM) 25 mg capsule Take 1 capsule (25 mg total) by mouth 3 (three) times a day for 5 days, THEN 1 capsule (25 mg total) 2 (two) times a day for 5 days, THEN 1 capsule (25 mg total) daily for 5 days. 30 capsule 11/02/19 25 Active vitamin B-1 100 mg tabletIndications: PATIENT IS TAKING. Take 1 tablet (100 mg total) by mouth daily 90 tablet 3 11/02/19 25 026 Active folic acid (FOLVITE) 1 mg tablet Take 1 tablet (1 mg total) by mouth daily 90 tablet 3 12/15/19 [address] (PROTONIX) 40 mg EC tabletIndications: GI Bleed,esophagitis Take 1 tablet (40 mg total) by mouth 2 (two) times a day 60 tablet 2 12/15/19 25 025 Active naltrexone microspheres (VIVITROL) 380 mg suspension,extende d rel reconIndications:A lcohol dependence with uncomplicated intoxication (HCC) Inject 380 mg into the muscle as instructed every 30 (thirty) days 1.2 each 6 01/15/20 25 026 Active naltrexone microspheres (VIVITROL) 380 mg suspension,extende d rel recon Inject 380 mg into the muscle as instructed every 30 (thirty) days 1.2 each 10/02/19 25 025 Discontin [facility]) Hospital, Clinic, or Other Facility Administered Medication [...] b.i.d. Assessment & Plan (08/20/2024 4:15 PM SALES APPRENTICE): Stable, generally well controlled, occasional episodes, generally gets relief on own Continue pantoprazole 40 mg b.i.d.; encourage avoidance of inciting substances including alcohol Hematemesis with nausea 06/08/2024 Upper GI bleed 06/07/2024 Chronic alcoholic gastritis 04/12/2024 Assessment & Plan (08/30/2024 4:37 PM SALES APPRENTICE): Not well controlled; continues to have some abdominal pain, nausea, decreased appetite well drinking alcohol Encourage alcohol cessation Continue pantoprazole 40 mg b.i.d. Assessment & Plan (07/23/2024 11:09 AM SALES APPRENTICE): Currently on pantoprazole. EGD scheduled in the summer. Assessment & Plan (07/17/2024 4:44 PM SALES APPRENTICE): Stable, well controlled; no current stomach pain, [...] 01/18/2024 Assessment & Plan (08/30/2024 4:36 PM SALES APPRENTICE): Stable, well controlled; follows with [facility] for [facility] management; continue quetiapine 25 mg nightly Assessment & Plan (08/20/2024 4:14 PM SALES APPRENTICE): Stable, generally well controlled, no recent episodes [...] follow with counseling and psychiatry services through [facility] Major depressive disorder, single episode, unspe cified 01/18/2024 Assessment & Plan (11/15/2024 6:06 PM CDT): Generally well controlled, patient reports she is in a better mood; is in regular contact with her significant other Follows with psychiatry in individual counseling through the [facility] Assessment & Plan (10/15/2024 2:51 PM CDT): Stable, follows with [facility]ry at the [facility] for management Continue Seroquel 25 mg nightly, [...] move soon based upon housing availability from [facility] Posttraumatic stress disorder 01/18/2024 Assessment [...] disorder Assessment & Plan (07/23/2024 11:11 AM SALES APPRENTICE): Has supportive friend and father. Encouraged working [...] gastritis Assessment & Plan (08/30/2024 4:36 PM SALES APPRENTICE): Not well controlled; patient reports drinking about [...] withdrawal Assessment & Plan (08/20/2024 4:14 PM SALES APPRENTICE): Not well controlled, not currently drinking, but has had severe cravings, patient has multiple episodes episodic binge drinking Patient had generally has good relief with the medication Continue Vivitrol every 30 days; acamprosate 666 mg t.i.d. Assessment & Plan (07/23/2024 11:11 AM SALES APPRENTICE): Will proceed to [facility] ED for Vivitrol injection today. Will return for her follow-up appointment in 10 days with PCP. Encouragement provided. Safety reviewed. Assessment & Plan (07/17/2024 4:43 PM SALES APPRENTICE): Stable, improving; no alcohol since last visit; due for injection on July 15, but would like to delay in order to allow for some alcohol use Discourage delay; would continue naltrexone monthly; add acamprosate 2 tablets t.i.d. Assessment & Plan (06/07/2024 4:51 PM SALES APPRENTICE): Not well controlled, can had recent relapse, [...] doing better at this time; engaged with cryolite recovery operator; discussion with Peer recovery analyst today Encouraged continued work towards complete cessation [...] Encounters Date Type Department Care Team Description 01/14/2025 1:15 PM CDT Clinical Support [facility] [address] [phone] 01/14/2025 Telephone [facility] [address] [address] Morgan Turner MD 01/08/2025 Telephone [facility] [address] [address] Morgan Turner MD 12/14/2024 Nurse Triage [facility] [address] [phone] Morgan Turner MD 12/11/2024 9:15 AM CDT Clinical Support [facility] [address] [phone] Alcohol dependence with uncomplicated intoxication (HCC) (Primary Dx) 12/11/2024 Telephone [facility] [address] [address] Morgan Turner MD Med Refill 12/11/2024 Telephone [facility] [address] [address] Nena Souza MA Vivitrol Injection Re-Order 12/10/2024 Telephone [facility] [address] [address] Morgan Turner MD Medical Question/Miscellane ous 12/10/2024 Telephone [facility] Gastroenterology at [address] [place] [address] [place] Tolentino 11/30/2024 Telephone [facility] Gastroenterology at [address] [place] [address] Hailey Arango EGLandy Appointment 11/29/2024 Telephone [facility] [address] [address] Morgan Turner MD Vivitrol Injection 11/08/2024 1:00 PM CDT Clinical Support [facility] [address] [address] Alcohol dependence with uncomplicated intoxication (HCC) (Primary Dx) 11/08/2024 Telephone [facility] [address] [address] Morgan Turner MD Vivitrol Injection Re-order 11/01/2024 1:45 PM CDT Office Visit [facility] [place] [address] [place] [address] Morgan Turner MD Alcohol dependence with uncomplicated intoxication (HCC) (Primary Dx); Major depressive disorder with single episode, in partial remission; Generalized anxiety disorder; Erosive esophagitis 11/01/2024 Documentation [facility] Warm Hand Off Program [address] [place], [place] [phone] Jhon Dias 10/30/2024 Telephone [facility] Gastroenterology at [place] [address] [facility] [address] [place] [address] Hailey Arango EGD Instructions 10/30/2024 Telephone [facility] [address] [address] Morgan Turner MD Vititrol Injection [...] e alcohol) Pint of alcohol a day [employer] Answer Date Recorded In the past 12 months has [employer], [employer], or water [employer] threatened to shut off services in your [...] often do you attend chur ch or sikhism services? Never 07/25/2024 Do you belong to any clubs o r organizations such as christian groups, unions, fraternal or athletic groups, or [...] any time in the past 12 m [facility], were you homeless or living in a [...] on file Legal Sex Female 6:50 PM SALES APPRENTICE Gender Identity Not on file Sexual Orientation [...] Description 03/05/2025 1:00 PM CDT Hospital Encounter [facility] 1 [place] [address] Ashish Morrow MD [address] [facility] [address] [place] [place] [id number] 03/05/2025 1:00 PM CDT - 03/05/2025 1:30 PM CDT Surgery [address] [address] Ashish Morrow MD [address] [facility] [address] MCCONNELL [address] [place] [phone] ESOPHAGOGASTRODUODENOSCOPY Scheduled Procedures Name Priority Associated Diagnoses [...] 0 09/30/2017, 04/21/2010, Additional history exists Insurance Advance Directives For more information, please contact: [phone] * Full Code (Latest Code Status on File) Date Activated Date Inactivated Comments 06/09/2024 9:37 AM 06/09/2024 7:14 PM * Full Code Date Activated Date Inactivated Comments 06/08/2024 3:33 AM 06/09/2024 9:37 AM * Full Code Date Activated Date Inactivated Comments 01/11/2024 7:42 AM 01/13/2024 6:46 PM Care Teams Cytologist Relationship Specialty Start Date End Date Morgan Turner MD [address] [place] [address] PCP - General Family Medicine 01/18/24 Ashish Morrow MD [address] [place] [address] [place] [address] Consulting Physician Gastroenterology 06/09/24
--- OUTSIDE RECORDS SUMMARY | 2025-01-15 17:35 | XMS_ITS | Referral Summary ---
Author Organization [facility] Address [address] [place] [address] Care Team Providers Care Mobile Battery Technician Name Role Phone Morgan Turner MD Primary Care Provider [phone] Ashish Morrow MD Unavailable [phone] Encounters Date Type Department Care Team Description 01/14/2025 Telephone [facility] [address] [address] Morgan Turner MD 01/14/2025 1:15 PM CDT Clinical Support [facility] [address] [phone] 01/08/2025 Telephone [facility] [address] [phone] Morgan Turner MD 12/14/2024 Nurse Triage [facility] [address] [phone] Morgan Turner MD 12/11/2024 Telephone [facility] [address] [address] Morgan Turner MD Med Refill 12/11/2024 Telephone [facility] [address] [address] Nena Souza MA Vivitrol Injection Re-Order 12/11/2024 9:15 AM CDT Clinical Support [facility] [address] [phone] Alcohol dependence with uncomplicated intoxication (HCC) (Primary Dx) 12/10/2024 Telephone [facility] [address] [address] Morgan Turner MD Medical Question/Miscellane ous 12/10/2024 Telephone [facility] Gastroenterology at [address] [place] [address] [place]ent[place] 11/30/2024 Telephone [facility] Gastroenterology at [address] [place] [phone] Hailey Arango EGD Appointment 11/29/2024 Telephone [facility] [address] [phone] Morgan Turner MD Vivitrol Injection 11/08/2024 Telephone [facility] [address] [address] Morgan Turner MD Vivitrol Injection Re-order 11/08/2024 1:00 PM CDT Clinical Support [facility] [address] [address] Alcohol dependence with uncomplicated intoxication (HCC) (Primary Dx) 11/01/2024 Documentation [facility] Warm Hand Off Program [address] [place], [place] [phone] Jhon Dias 11/01/2024 1:45 PM CDT Office Visit [facility] [address] [phone] Morgan Turner MD Alcohol dependence with uncomplicated intoxication (HCC) (Primary Dx); Major depressive disorder with single episode, in partial remission; Generalized anxiety disorder; Erosive esophagitis 10/30/2024 Telephone [facility] Gastroenterology at [address] [place] [address] Hailey Arango Instructions 10/30/2024 Telephone [facility] [address] [address] Morgan Turner MD Vititrol Injection from Last 3 Months Allergies Active Allergy Reactions Criticality Noted Date Comments Permethrin Hives Medium 08/08/2024 [place] odor spray cashmere rodas Levonorgestrel-Ethinyl Estrad Vomiting [...] mouth daily 90 tablet 3 11/02/19 25 05/01/2 026 Active folic acid (FOLVITE) 1 mg [...] every 30 (thirty) days 1.2 each 6 10/02/19 25 025 Discontin [facility] Clinic, or Other Facility Administered Medication Ordered [...] b.i.d. Assessment & Plan (08/20/2024 4:15 PM SPINNING SUPERVISOR): Stable, generally well controlled, occasional episodes, generally gets relief on own Continue pantoprazole 40 mg b.i.d.; encourage avoidance of inciting substances including alcohol Hematemesis with nausea 06/08/2024 Upper GI bleed 06/07/2024 Chronic alcoholic gastritis 04/12/2024 Assessment & Plan (08/30/2024 4:37 PM SPINNING SUPERVISOR): Not well controlled; continues to have some abdominal pain, nausea, decreased appetite well drinking alcohol Encourage alcohol cessation Continue pantoprazole 40 mg b.i.d. Assessment & Plan (07/23/2024 11:09 AM SPINNING SUPERVISOR): Currently on pantoprazole. EGD scheduled in the summer. Assessment & Plan (07/17/2024 4:44 PM SPINNING SUPERVISOR): Stable, well controlled; no current stomach pain, [...] 01/18/2024 Assessment & Plan (08/30/2024 4:36 PM SPINNING SUPERVISOR): Stable, well controlled; [facility] continue quetiapine 25 mg nightly Assessment & Plan (08/20/2024 4:14 PM SPINNING SUPERVISOR): Stable, generally well controlled, no recent episodes [...] follow with counseling and psychiatry services through [facility] Major depressive disorder, single episode, unspe cified 01/18/2024 Assessment & Plan (11/15/2024 6:06 PM CDT): Generally well controlled, patient reports she is in a better mood; is in regular contact with her significant other Follows with psychiatry in individual counseling through the [facility] Assessment & Plan (10/15/2024 2:51 PM CDT): Stable, [facility] for management Continue Seroquel 25 mg nightly, [...] [facility] Posttraumatic stress disorder 01/18/2024 Assessment & Plan [...] disorder Assessment & Plan (07/23/2024 11:11 AM SPINNING SUPERVISOR): Has supportive friend and father. Encouraged working [...] gastritis Assessment & Plan (08/30/2024 4:36 PM SPINNING SUPERVISOR): Not well controlled; patient reports drinking about [...] withdrawal Assessment & Plan (08/20/2024 4:14 PM SPINNING SUPERVISOR): Not well controlled, not currently drinking, but has had severe cravings, patient has multiple episodes episodic binge drinking Patient had generally has good relief with the medication Continue Vivitrol every 30 days; acamprosate 666 mg t.i.d. Assessment & Plan (07/23/2024 11:11 AM SPINNING SUPERVISOR): Will proceed to [facility] ED for Vivitrol injection today. Will return for her follow-up appointment in 10 days with PCP. Encouragement provided. Safety reviewed. Assessment & Plan (07/17/2024 4:43 PM SPINNING SUPERVISOR): Stable, improving; no alcohol since last visit; due for injection on July 15, but would like to delay in order to allow for some alcohol use Discourage delay; would continue naltrexone monthly; add acamprosate 2 tablets t.i.d. Assessment & Plan (06/07/2024 4:51 PM SPINNING SUPERVISOR): Not well controlled, can had recent relapse, [...] doing better at this time; engaged with disaster recovery analyst; discussion with Peer manager of disaster recovery today Encouraged continued work towards complete [...] Pint of alcohol a day [facility] [employer] Answer Date Recorded In the past 12 months has th e [employer], gas, oil, or water [employer] threatened to shut off services in your [...] often do you attend chur ch or mormonism services? Never 07/25/2024 Do you belong to [...] any time in the past 12 m [facility], were you homeless or living [...] on file Legal Sex Female 6:50 PM SPINNING SUPERVISOR Gender Identity Not on file Sexual [...] Description 03/05/2025 1:00 PM CDT Hospital Encounter [facility] [address] [place] [address] Ashish Morrow MD [address] [facility] [address] MCCON[address] [place] [phone] 03/05/2025 1:00 PM CDT - 03/05/2025 1:30 PM CDT Surgery [address] [address] Ashish Morrow MD [address] [facility] [address] MCCONNELL [address] [place] [phone] ESOPHAGOGASTRODUODENOSCOPY Scheduled Procedures Name Priority Associated Diagnoses Date/Ti me ESOPHAGOGASTRODUODENOSCOPY Erosive esophagitis 03/05/2025 1:00 [place] [address] [facility] Advance Directives For more information, please contact: [phone] * Full Code (Latest Code Status on File) Date Activated Date Inactivated Comments 06/09/2024 9:37 AM 06/09/2024 7:14 PM * Full Code Date Activated Date Inactivated Comments 06/08/2024 3:33 AM 06/09/2024 9:37 AM * Full Code Date Activated Date Inactivated Comments 01/11/2024 7:42 AM 01/13/2024 6:46 PM Care Teams Mobile Battery Technician Relationship Specialty Start Date End Date Morgan Turner MD [address] [place] [address] PCP - General Family Medicine 01/18/24 Ashish Morrow MD [address] [place] [address] [place] [address] Consulting Physician Gastroenterology 06/09/24
--- OUTSIDE RECORDS SUMMARY | 2025-01-15 17:35 | XMS_ITS | Continuity of Care Document ---
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 It does not include entries that were removed or entered in error. Problem Status Onset Date Problem Type Date of Resolution Comments Source Alcohol dependence, uncomplicated Active 8 Condition DoD Sprain of other ligament of right ankle Active 8 Condition [facility] Abnormal urine Active Condition [facility] Alcohol dependence Active Condition [facility] Chronic post-traumatic stress disorder Active Condition [facility] Housing instability Active Condition [facility] Mild bipolar disorder Active Condition [facility] Nicotine dependence Active Condition [facility] Posttraumatic stress disorder Active Condition [facility] Unsheltered homelessness Active Condition [facility] Diagnosis: ICD-10-CM F43.10 Post-traumatic stress disorder, unspecified Active Diagnosis [facility] Diagnosis: ICD-10-CM F10.220 Alcohol dependence with intoxication, uncomplicated Active Diagnosis [facility] Diagnosis: ICD-10-CM F10.20 Alcohol dependence, uncomplicated Active Diagnosis [facility] Diagnosis: ICD-10-CM Z59.89 Other problems related to housing and economic circumstances Active Diagnosis [facility] Diagnosis: ICD-10-CM Z78.9 Other specified health status Active Diagnosis [facility] Diagnosis: ICD-10-CM F43.12 Post-traumatic stress disorder, chronic Active Diagnosis [facility] Diagnosis: ICD-10-CM F10.239 Alcohol dependence with withdrawal, unspecified Active Diagnosis [facility] Diagnosis: ICD-10-CM F31.81 Bipolar II disorder Active Diagnosis [facility] Admit Reason: ALCOHOL DETOXIFICATION Active Diagnosis [facility] Diagnosis: ICD-10-CM Z71.89 Other specified counseling Active Diagnosis [facility] Diagnosis: ICD-10-CM Z59.9 Problem related to housing and economic circumstances, unsp Active Diagnosis [facility] Diagnosis: ICD-10-CM Z59.02 Unsheltered homelessness Active Diagnosis [facility] Diagnosis: ICD-10-CM F31.89 Other bipolar disorder Active Diagnosis [facility] Diagnosis: ICD-10-CM R45.851 Suicidal ideations Active Diagnosis [facility] Medications Combined list of outpatient medications [...] FOR ASSISTAN CE WITH DEPENDEN CY 01/23/2024 [id number] THA CHASE S 2023 5 [facility] CHLORDIAZEP OXIDE HCL 25MG CAP TAKE ONE CAPSULE BY MOUTH TWICE A DAY FOR 2 DAYS, THEN TAKE ONE CAPSULE ONCE A DAY FOR 1 DAY FOR ASSISTAN CE WITH DEPENDEN CY ORAL 01/23/2024 [id number] 4 BRIGIDO CHASE S 2023 5 [facility] HYDROXYZINE HCL 50MG TAB TAKE ONE TABLET BY MOUTH THREE TIMES A DAY NEEDED FOR ANXIETY *MAY CAUSE DROWSINE SS* ORAL ACTIVE 06/30/2025 [id number] 5 Dick RAO 2024 270 [facility] HYDROXYZINE HCL 50MG TAB TAKE ONE TABLET BY MOUTH THREE TIMES A DAY NEEDED FOR ANXIETY *MAY CAUSE DROWSINE SS* ORAL DISCONT INUED 02/03/2025 [id number] 4 Dick RAO E 2023 270 [facility] NALTREXONE (EQV-REVIA) 50MG TAB TAKE ONE TABLET BY MOUTH ONCE A DAY FOR ASSISTAN CE WITH DEPENDEN CY ORAL 01/23/2024 [id number] BRIGIDO CHASE S 2023 30 [facility] Naltrexone Hydrochlori de (ReVia Eq.) Tablet 50 mg Oral TAKE ONE TABLET BY MOUTH ONCE A DAY FOR ASSISTAN CE WITH DEPENDEN CY 01/23/2024 [id number] THA CHASE S 2023 30 [facility] Quetiapine (Seroquel Starter Pack) Tablet 25mg Oral TAKE ONE TABLET BY MOUTH AT BEDTIME 12/14/2024 [id number] NITISH RAO E 2023 30 [facility] Quetiapine (Seroquel Starter Pack) Tablet 25mg Oral TAKE ONE TABLET BY MOUTH AT BEDTIME FOR SLEEP AND ANGER Discont inued 11/15/2024 [id number] 4 NITISH RAO E 2023 30 [facility] Quetiapine (Seroquel Starter Pack) Tablet 25mg Oral TAKE ONE TABLET BY MOUTH AT BEDTIME FOR SLEEP AND ANGER 11/15/2024 [id number] 4 NITISH RAO E 2023 30 [facility] QUETIAPINE FUMARATE 25MG TAB TAKE ONE TABLET BY MOUTH AT BEDTIME ORAL DISCONT INUED BY PROVIDE R 12/14/2024 [id number] 4 Dick RAO E 2023 30 [facility] QUETIAPINE FUMARATE 25MG TAB TAKE ONE TABLET BY MOUTH AT BEDTIME FOR SLEEP AND ANGER ORAL DISCONT INUED 11/15/2024 [id number] 4 MAIRADick TRIXIE E 2023 30 [facility] QUETIAPINE FUMARATE 50MG TAB TAKE ONE TABLET BY MOUTH AT BEDTIME FOR MOOD REGULATI ON ORAL ACTIVE 06/30/2025 [id number] 5 MAIRADickA TRIXIE E 2024 90 [facility] QUETIAPINE FUMARATE 50MG TAB TAKE ONE TABLET BY MOUTH AT BEDTIME FOR MOOD REGULATI ON ORAL DISCONT INUED 02/03/2025 [id number] 4 Dick RAO E 2023 90 [facility] THIAMINE 100MG TAB TAKE ONE TABLET BY MOUTH ONCE A DAY FOR 10 DAYS FOR VITAMIN B1 SUPPLEME NTATION ORAL 01/23/2024 [id number] 4 BRIGIDO CHASE S 2023 10 [facility] Thiamine 100mg, Tablet, Oral TAKE ONE TABLET BY MOUTH ONCE A DAY FOR 10 DAYS FOR VITAMIN B1 SUPPLEME NTATION 01/23/2024 [id number] THA CHASE S 2023 10 [facility] Allergies, Adverse Reactions, Alerts Combined list of allergies from Department of Defense and Veterans Affairs facilities. It does not include entries that were removed or entered in error. Substance Category Reaction Severity Reaction type Status Date Reported Comments Source No Known Allergies Drug allergy (disorder) active 8 [facility] Immunizations Combined list of available immunizations from the Department of Defense and Veterans Affairs facilities. Immunization Series Date Given Administered By Site Reaction Lot Number CVX Code Drug Fitness Professional Status Comments Source Influenza, injectable, quadrivalent, preservative free 1 2018 [id number] 150 Seqirus (SEQ) complet ed Influenza , injectabl e, quadrival ent, preservat el free DoD Influenza, injectable, quadrivalent, preservative free 1 2018 [id number] 150 Seqirus (SEQ) comple t ed Influenza , injectabl e, quadrival ent, preservat el free [facility] hepatitis B vaccine, adult dosage 3 2018 [id number] Mixxine (SKB) complet ed hepatitis B vaccine, adult dosage DoD influenza, injectable, quadrivalent, contains preservative 1 2018 [id number] 158 Seqirus (SEQ) complet ed influenza , injectabl e, quadrival ent, contains preservat el DoD varicella virus vaccine 2 2017 [id number] Merck (MSD) complet ed varicella virus vaccine DoD hepatitis B vaccine, adult dosage 2 2017 [id number] 43 SmithKline (SKB) complet ed hepatitis B vaccine, adult dosage DoD measles, mumps and rubella virus vaccine 1 2017 UNK 03 Unknown (UNK) Not Given measles, mumps and rubella virus vaccine DoD poliovirus vaccine, inactivated 1 2017 [id number] 10 Sanofi Pasteur ([facility]) complet ed polioviru s vaccine, inactivat ed DoD varicella virus vaccine 1 2017 [id number] 21 Merck (MSD) complet ed varicella virus vaccine DoD hepatitis B vaccine, adult dosage 1 2017 [id number] 43 SmithKline ([facility]) complet ed hepatitis B vaccine, adult dosage DoD hepatitis A vaccine, adult dosage 1 2017 UNK 52 Unknown (UNK) Not Given hepatitis A vaccine, adult dosage DoD meningococcal polysaccharid e (groups A, C, Y and W-135) diphtheria toxoid conjugate vaccine (MCV4P) 1 2017 [id number] Sanofi Pasteur ([facility]) complet ed meningoco ccal polysacch aride (groups A, C, Y and W-135) diphtheri a toxoid conjugate vaccine (MCV4P) DoD tetanus toxoid, reduced diphtheria toxoid, and acellular pertu is vaccine, adsorbed 1 2017 [id number] Mixxine (SKB) complet ed tetanus toxoid, reduced diphtheri a toxoid, and acellular pertussis vaccine, adsorbed DoD Adenovirus, type 4 and type 7, live, oral 1 2017 [id number] 143 [facility] ([facility]) complet ed Adenoviru s, type 4 and type 7, live, oral DoD Influenza, injectable, [place] Canine Kidney, quadrivalent with preservative 1 2017 [id number] Seqirus (SEQ) comple t ed Influenza , injectabl e, [place] Canine Kidney, quadrival ent with preservat el [...] Dec 23, 2023 04:13 PM Reporting Lab: [facility] [address] [place] [address] Performing Lab: [facility] [address] [place] [address] CBC ERYTHROCYT ES [#/VOLUME] IN BLOOD BY AUTOMATED COUNT 4.72 10*6/uL 3.60 - 5.00 12/22 Specimen Type: BLOOD No comment entered. Ordering Provider: MICKI COTTER AR Report Released Date/Time: Dec 23, 2023 04:13 PM Reporting Lab: [facility] [address] [place] [phone] Performing Lab: [facility] [address] [place] [address] CBC HEMOGLOBIN [MASS/VOLU ME] IN BLOOD 11.8 g/dL 11.0 - 14.9 12/22 Specimen Type: BLOOD No comment entered. Ordering Provider: MICKI COTTER AR Report Released Date/Time: Dec 23, 2023 04:13 PM Reporting Lab: [facility] [address] [place] [phone] Performing Lab: [facility] [address] [place] [phone] [facility] CBC HEMATOCRIT [VOLUME FRACTION] OF BLOOD 36.7 32.6 - 43.4 12/22 Specimen Type: BLOOD No comment entered. Ordering Provider: MICKI COTTER AR Report Released Date/Time: Dec 23, 2023 04:13 PM Reporting Lab: [address] [address] Performing Lab: [address] [address] [facility] CBC MCV [ENTITIC VOLUME] BY AUTOMATED COUNT 77.8 fL 80.0 - 100.0 12/22 L Specimen Type: BLOOD No comment entered. Ordering Provider: MICKI COTTER Report Released Date/Time: Dec 23, 2023 04:13 PM Reporting Lab: [address] [address] Performing Lab: [address] [address] [facility] CBC MCH [ENTITIC MASS] BY AUTOMATED COUNT 25.0 pg 27.0 - 34.0 12/22 L Specimen Type: BLOOD No comment entered. Ordering Provider: MICKI COTTER Report Released Date/Time: Dec 23, 2023 04:13 PM Reporting Lab: [address] [address] Performing Lab: [address] [address] [facility] CBC MCHC [MASS/VOLU ME] BY AUTOMATED COUNT 32.2 g/dL 33.0 - 36.0 12/22 L Specimen Type: BLOOD No comment entered. Ordering Provider: MICKI COTTER AR Report Released Date/Time: Dec 23, 2023 04:13 PM Reporting Lab: [address] [address] Performing Lab: [address] [address] [facility] CBC PLATELETS [#/VOLUME] IN BLOOD BY AUTOMATED COUNT 309 10*3/uL 150 - 400 12/22 Specimen Type: BLOOD No comment entered. Ordering Provider: MICKI COTTER AR Report Released Date/Time: Dec 23, 2023 04:13 PM Reporting Lab: [facility] [address] [facility] [address] Performing Lab: [facility] [address] [place] [phone] [facility] CBC PLATELET MEAN VOLUME [ENTITIC VOLUME] IN BLOOD BY AUTOMATED COUNT 10.3 fL 7.5 - 11.2 12/22 Specimen Type: BLOOD No comment entered. Ordering Provider: MICKI COTTER Report Released Date/Time: Dec 23, 2023 04:13 PM Reporting Lab: [address] [address] Performing Lab: [address] [address] [facility] CBC ERYTHROCYT E DISTRIBUTI ON WIDTH [RATIO] BY AUTOMATED COUNT 17.3 11.8 - 15.1 12/22 H Specimen Type: BLOOD No comment entered. Ordering Provider: MICKI COTTER AR Report Released Date/Time: Dec 23, 2023 04:13 PM Reporting Lab: [address] [address] Performing Lab: [address] [address] [facility] CBC LYMPHOCYTE S/100 LEUKOCYTES IN BLOOD BY AUTOMATED COUNT 58 12/22 Specimen Type: BLOOD No comment entered. Ordering Provider: MICKI COTTER Report Released Date/Time: Dec 23, 2023 04:13 PM Reporting Lab: [place] [address] [facility] [address] Performing Lab: [facility] [address] [place] [phone] [facility] CBC MONOCYTES/ 100 LEUKOCYTES IN BLOOD BY AUTOMATED COUNT 6 12/22 Specimen Type: BLOOD No comment entered. Ordering Provider: MICKI COTTER AR Report Released Date/Time: Dec 23, 2023 04:13 PM Reporting Lab: [facility] [address] [facility] [address] Performing Lab: [facility] [address] [facility] [address] [facility] CBC NEUTROPHIL S/100 LEUKOCYTES IN BLOOD BY AUTOMATED COUNT 32 12/22 Specimen Type: BLOOD No comment entered. Ordering Provider: MICKI COTTER AR Report Released Date/Time: Dec 23, 2023 04:13 PM Reporting Lab: [facility] [address] [facility] [address] Performing Lab: [facility] [address] [facility] [address] [facility] CBC EOSINOPHIL S/100 LEUKOCYTES IN BLOOD BY AUTOMATED COUNT 2 12/22 Specimen Type: BLOOD No comment entered. Ordering Provider: MICKI COTTER Report Released Date/Time: Dec 23, 2023 04:13 PM Reporting Lab: [facility] [address] [facility] [address] Performing Lab: [facility] [address] [facility] [address] [facility] CBC BASOPHILS/ 100 LEUKOCYTES IN BLOOD BY AUTOMATED COUNT 1 12/22 Specimen Type: BLOOD No comment entered. Ordering Provider: MICKI COTTER AR Report Released Date/Time: Dec 23, 2023 04:13 PM Reporting Lab: [place] [address] [facility] [address] Performing Lab: [facility] [address] [facility] [address] [facility] CBC LYMPHOCYTE S [#/VOLUME] IN BLOOD BY AUTOMATED COUNT 3.67 10*3/uL 0.77 - 4.50 12/22 Specimen Type: BLOOD No comment entered. Ordering Provider: MICKI COTTER AR Report Released Date/Time: Dec 23, 2023 04:13 PM Reporting Lab: [facility] [address] [facility] [address] Performing Lab: [facility] [address] [facility] [address] [facility] CBC MONOCYTES [#/VOLUME] IN BLOOD BY AUTOMATED COUNT 0.39 10*3/uL 0.19 - 0.80 12/22 Specimen Type: BLOOD No comment entered. Ordering Provider: MICKI COTTER AR Report Released Date/Time: Dec 23, 2023 04:13 PM Reporting Lab: [address] [address] Performing Lab: [address] [address] [facility] CBC NEUTROPHIL S [#/VOLUME] IN BLOOD BY AUTOMATED COUNT 2.03 10*3/uL 2.10 - 8.00 12/22 L Specimen Type: BLOOD No comment entered. Ordering Provider: MICKI COTTER AR Report Released Date/Time: Dec 23, 2023 04:13 PM Reporting Lab: [address] [address] Performing Lab: [address] [address] [facility] CBC EOSINOPHIL S [#/VOLUME] IN BLOOD BY AUTOMATED COUNT 0.13 10*3/uL 0.00 - 0.60 12/22 Specimen Type: BLOOD No comment entered. Ordering Provider: MICKI COTTER AR Report Released Date/Time: Dec 23, 2023 04:13 PM Reporting Lab: [address] [address] Performing Lab: [address] [address] [facility] CBC BASOPHILS [#/VOLUME] IN BLOOD BY AUTOMATED COUNT 0.08 10*3/uL 0.00 - 0.20 12/22 Specimen Type: BLOOD No comment entered. Ordering Provider: MICKI COTTER AR Report Released Date/Time: Dec 23, 2023 04:13 PM Reporting Lab: [address] [address] Performing Lab: [place] [id number] [facility] [address] [facility] COMPREHE NSIVE METABOLI C PANEL CREATININE [MASS/VOLU ME] IN SERUM OR PLASMA 0.84 mg/dL 0.6 - 1.1 12/22 Specimen Type: PLASMA Comment: No hemolysis noted. Ordering Provider: MICKI COTTER Report Released Date/Time: Dec 23, 2023 04:13 PM Reporting Lab: [address] [address] Performing Lab: [address] [address] [facility] COMPREHE NSIVE METABOLI C PANEL UREA NITROGEN [MASS/VOLU ME] IN SERUM OR PLASMA 5.6 mg/dL 9.0 - 25.0 12/22 L Specimen Type: PLASMA Comment: No hemolysis noted. Ordering Provider: MICKI COTTER Report Released Date/Time: Dec 23, 2023 04:13 PM Reporting Lab: [address] [address] Performing Lab: [address] [address] [facility] COMPREHE NSIVE METABOLI C PANEL GLUCOSE [MASS/VOLU ME] IN SERUM OR PLASMA 109 mg/dL 72 - 99 12/22 H Specimen Type: PLASMA Comment: No hemolysis noted. Ordering Provider: MICKI COTTER Report Released Date/Time: Dec 23, 2023 04:13 PM Reporting Lab: [address] [address] Performing Lab: [address] [address] [facility] COMPREHE NSIVE METABOLI C PANEL SODIUM [MOLES/VOL UME] IN SERUM OR PLASMA 139 meq/L 136 - 145 12/22 Specimen Type: PLASMA Comment: No hemolysis noted. Ordering Provider: MICKI COTTER AR Report Released Date/Time: Dec 23, 2023 04:13 PM Reporting Lab: [facility] [address] [facility] [address] Performing Lab: [facility] [address] [facility] [address] [facility] COMPREHE NSIVE METABOLI C PANEL POTASSIUM [MOLES/VOL UME] IN SERUM OR PLASMA 3.7 meq/L 3.5 - 5 12/22 Specimen Type: PLASMA Comment: No hemolysis noted. Ordering Provider: MICKI COTTER AR Report Released Date/Time: Dec 23, 2023 04:13 PM Reporting Lab: [facility] [address] [facility] [address] Performing Lab: [facility] [address] [facility] [address] [facility] COMPREHE NSIVE METABOLI C PANEL CHLORIDE [MOLES/VOL UME] IN SERUM OR PLASMA 108 meq/L 98 - 107 12/22 H Specimen Type: PLASMA Comment: No hemolysis noted. Ordering Provider: MICKI COTTER AR Report Released Date/Time: Dec 23, 2023 04:13 PM Reporting Lab: [place] [address] [facility] [address] Performing Lab: [facility] [address] [facility] [address] [facility] COMPREHE NSIVE METABOLI C PANEL CARBON DIOXIDE, TOTAL [MOLES/VOL UME] IN SERUM OR PLASMA 17 meq/L 22 - 31 12/22 L Specimen Type: PLASMA Comment: No hemolysis noted. Ordering Provider: MICKI COTTER AR Report Released Date/Time: Dec 23, 2023 04:13 PM Reporting Lab: [place] [address] [facility] [address] Performing Lab: [facility] [address] [place] [phone] [facility] COMPREHE NSIVE METABOLI C PANEL CALCIUM [MASS/VOLU ME] IN SERUM OR PLASMA 9.1 mg/dL 8.4 - 10.4 12/22 Specimen Type: PLASMA Comment: No hemolysis noted. Ordering Provider: MICKI COTTER AR Report Released Date/Time: Dec 23, 2023 04:13 PM Reporting Lab: [facility] [address] [facility] [address] Performing Lab: [facility] [address] [facility] [address] [facility] COMPREHE NSIVE METABOLI C PANEL PROTEIN [MASS/VOLU ME] IN SERUM OR PLASMA 8.2 g/dL 6 - 8.6 12/22 Specimen Type: PLASMA Comment: No hemolysis noted. Ordering Provider: MICKI COTTER Report Released Date/Time: Dec 23, 2023 04:13 PM Reporting Lab: [facility] [address] [place] [phone] Performing Lab: [facility] [address] [place] [phone] [facility] COMPREHE NSIVE METABOLI C PANEL ALBUMIN [MASS/VOLU ME] IN SERUM OR PLASMA 4.4 g/dL 3.4 - 5 12/22 Specimen Type: PLASMA Comment: No hemolysis noted. Ordering Provider: MICKI COTTER Report Released Date/Time: Dec 23, 2023 04:13 PM Reporting Lab: [facility] [address] [place] [phone] Performing Lab: [facility] [address] [place] [address] [facility] COMPREHE NSIVE METABOLI C PANEL BILIRUBIN. TOTAL [MASS/VOLU ME] IN SERUM OR PLASMA 0.3 mg/dL 0.2 - 1.2 12/22 Specimen Type: PLASMA Comment: No hemolysis noted. Ordering Provider: MICKI COTTER Report Released Date/Time: Dec 23, 2023 04:13 PM Reporting Lab: [facility] [address] [facility] [address] Performing Lab: [facility] [address] [place] [address] [facility] COMPREHE NSIVE METABOLI C PANEL ALKALINE PHOSPHATAS E [ENZYMATIC ACTIVITY/V OLUME] IN SERUM OR PLASMA 82 U/L 40 - 150 12/22 Specimen Type: PLASMA Comment: No hemolysis noted. Ordering Provider: MICKI COTTER Report Released Date/Time: Dec 23, 2023 04:13 PM Reporting Lab: [place] [address] [facility] [address] Performing Lab: [place] [address] [address] [facility] [address] [facility] COMPREHE NSIVE METABOLI C PANEL ASPARTATE AMINOTRANS FERASE [ENZYMATIC ACTIVITY/V OLUME] IN SERUM OR PLASMA 25 U/L 5 - 34 12/22 Specimen Type: PLASMA Comment: No hemolysis noted. Ordering Provider: MICKI COTTER Report Released Date/Time: Dec 23, 2023 04:13 PM Reporting Lab: [place] [address] [address] [facility] [address] Performing Lab: [place] [address] [facility] [address] [facility] COMPREHE NSIVE METABOLI C PANEL ALANINE AMINOTRANS FERASE [ENZYMATIC ACTIVITY/V OLUME] IN SERUM OR PLASMA 17 U/L 8 - 40 12/22 Specimen Type: PLASMA Comment: No hemolysis noted. Ordering Provider: MICKI COTTER Report Released Date/Time: Dec 23, 2023 04:13 PM Reporting Lab: [place] [address] [facility] [address] Performing Lab: [place] [address] [address] [facility] [address] [facility] COMPREHE NSIVE METABOLI C PANEL GLOMERULAR FILTRATION RATE/1.73 SQ M.PREDICTE D [VOLUME RATE/AREA] IN SERUM, PLASMA OR BLOOD BY CREATININE -BASED FORMULA (CKD-EPI 2020) 97.0 60 12/22 Specimen Type: PLASMA Comment: No hemolysis noted. Ordering Provider: MICKI COTTER Report Released Date/Time: Dec 23, 2023 04:13 PM Reporting Lab: [address] [address] Performing Lab: [address] [address] [facility] COVID-19 SCREENIN G PANEL (STL-PB) SARS-COV-2 (COVID-19) [...] Dec 23, 2023 04:13 PM Reporting Lab: [address] [address] Performing Lab: [address] [address] [facility] ETHANOL SERUM/PL ASMA (STL) ETHANOL [MASS/VOLU ME] IN SERUM OR PLASMA 300 mg/dL 0 - 10 12/22 H Specimen Type: PLASMA Comment: No hemolysis noted. Ordering Provider: MICKI COTTER AR Report Released Date/Time: Dec 23, 2023 04:13 PM Reporting Lab: [address] [id number] Performing Lab: [address] [address] [facility] METHADON E PANEL (STL) ETHANOL [MASS/VOLU ME] IN URINE 296-POSm g/dL 0 - 20 12/22 H Specimen Type: URINE Comment: The cut-off value for this test was laboratory developed and its performance characteris tics confirmed by the [facility] laboratory thru method comparison with reference laboratory and medication chart review. The laboratory is regulated under CLIA as qualified to perform high-comple xity testing. This test is used for clinical purposes in conjunction with other laboratory tests. Ordering Provider: MICKI COTTER AR Report Released Date/Time: Dec 23, 2023 04:13 PM Reporting Lab: [address] [address] Performing Lab: [place] [address] [facility] [address] [facility] METHADON E PANEL (STL) AMPHETAMIN E [PRESENCE] IN URINE BY SCREEN METHOD Negative ng/mL 12/22 Specimen Type: URINE Comment: The cut-off value for this test was laboratory developed and its performance characteris tics confirmed by the [facility] laboratory thru method comparison with reference laboratory and medication chart review. The laboratory is regulated under CLIA as qualified to perform high-comple xity testing. This test is used for clinical purposes in conjunction with other laboratory tests. Ordering Provider: MICKI COTTER AR Report Released Date/Time: Dec 23, 2023 04:13 PM Reporting Lab: [address] [address] Performing Lab: [address] [address] [facility] METHADON E PANEL (STL) BENZOYLECG ONINE [PRESENCE] IN URINE Negative ng/mL 12/22 Specimen Type: URINE Comment: The cut-off value for this test was laboratory developed and its performance characteris tics confirmed by the [facility] laboratory thru method comparison with reference laboratory and medication chart review. The laboratory is regulated under CLIA as qualified to perform high-comple xity testing. This test is used for clinical purposes in conjunction with other laboratory tests. Ordering Provider: MICKI COTTER AR Report Released Date/Time: Dec 23, 2023 04:13 PM Reporting Lab: [address] [address] Performing Lab: [place] [address] [facility] [address] [facility] METHADON E PANEL (STL) BENZODIAZE PINES [PRESENCE] IN URINE BY SCREEN METHOD Negative ng/mL 12/22 Specimen Type: URINE Comment: The cut-off value for this test was laboratory developed and its performance characteris tics confirmed by the [facility] laboratory thru method comparison with reference laboratory and medication chart review. The laboratory is regulated under CLIA as qualified to perform high-comple xity testing. This test is used for clinical purposes in conjunction with other laboratory tests. Ordering Provider: MICKI COTTER AR Report Released Date/Time: Dec 23, 2023 04:13 PM Reporting Lab: [address] [address] Performing Lab: [address] [address] [facility] METHADON E PANEL (STL) CANNABINOI DS [PRESENCE] IN URINE BY SCREEN METHOD 99-POSng /mL 12/22 Specimen Type: URINE Comment: The cut-off value for this test was laboratory developed and its performance characteris tics confirmed by the [facility] laboratory thru method comparison with reference laboratory and medication chart review. The laboratory is regulated under CLIA as qualified to perform high-comple xity testing. This test is used for clinical purposes in conjunction with other laboratory tests. Ordering Provider: MICKI COTTER AR Report Released Date/Time: Dec 23, 2023 04:13 PM Reporting Lab: [place] [address] [facility] [address] Performing Lab: [place] [address] [facility] [address] [facility] METHADON E PANEL (STL) METHADONE [PRESENCE] IN URINE Negative ng/mL 12/22 Specimen Type: URINE Comment: The cut-off value for this test was laboratory developed and its performance characteris tics confirmed by the [facility] laboratory thru method comparison with reference laboratory and medication chart review. The laboratory is regulated under CLIA as qualified to perform high-comple xity testing. This test is used for clinical purposes in conjunction with other laboratory tests. Ordering Provider: MICKI COTTER Report Released Date/Time: Dec 23, 2023 04:13 PM Reporting Lab: [facility] [address] [facility] [address] Performing Lab: [facility] [address] [facility] [address] [facility] METHADON E PANEL (STL) OPIATES [PRESENCE] IN URINE BY SCREEN METHOD Negative ng/mL 12/22 Specimen Type: URINE Comment: The cut-off value for this test was laboratory developed and its performance characteris tics confirmed by the [facility] laboratory thru method comparison with reference laboratory and medication chart review. The laboratory is regulated under CLIA as qualified to perform high-comple xity testing. This test is used for clinical purposes in conjunction with other laboratory tests. Ordering Provider: MICKI COTTER Report Released Date/Time: Dec 23, 2023 04:13 PM Reporting Lab: [place] [address] [facility] [address] Performing Lab: [address] [address] [facility] METHADON E PANEL (STL) CREATININE [MASS/VOLU ME] IN URINE 63.4 mg/dL 47 - 110 12/22 Specimen Type: URINE Comment: The cut-off value for this test was laboratory developed and its performance characteris tics confirmed by the [facility] laboratory thru method comparison with reference laboratory and medication chart review. The laboratory is regulated under CLIA as qualified to perform high-comple xity testing. This test is used for clinical purposes in conjunction with other laboratory tests. Ordering Provider: MICKI COTTER Report Released Date/Time: Dec 23, 2023 04:13 PM Reporting Lab: [place] [address] [facility] [address] Performing Lab: [address] [address] [facility] METHADON E PANEL (STL) OXYCODONE CUTOFF [MASS/VOLU ME] IN URINE FOR SCREEN METHOD Negative ng/mL 12/22 Specimen Type: URINE Comment: The cut-off value for this test was laboratory developed and its performance characteris tics confirmed by the [facility] laboratory thru method comparison with reference laboratory and medication chart review. The laboratory is regulated under CLIA as qualified to perform high-comple xity testing. This test is used for clinical purposes in conjunction with other laboratory tests. Ordering Provider: MICKI COTTER Report Released Date/Time: Dec 23, 2023 04:13 PM Reporting Lab: [place] [address] [facility] [address] Performing Lab: [address] [address] [facility] METHADON E PANEL (STL) BUPRENORPH INE [PRESENCE] IN URINE Negative 12/22 Specimen Type: URINE Comment: The cut-off value for this test was laboratory developed and its performance characteris tics confirmed by the [facility] laboratory thru method comparison with reference laboratory and medication chart review. The laboratory is regulated under CLIA as qualified to perform high-comple xity testing. This test is used for clinical purposes in conjunction with other laboratory tests. Ordering Provider: MICKI COTTER AR Report Released Date/Time: Dec 23, 2023 04:13 PM Reporting Lab: [place] [address] [facility] [address] Performing Lab: [place] [address] [facility] [address] [facility] METHADON E PANEL (STL) FENTANYL [PRESENCE] IN URINE Negative ng/mL 12/22 Specimen Type: URINE Comment: The cut-off value for this test was laboratory developed and its performance characteris tics confirmed by the [facility] laboratory thru method comparison with reference laboratory and medication chart review. The laboratory is regulated under CLIA as qualified to perform high-comple xity testing. This test is used for clinical purposes in conjunction with other laboratory tests. Ordering Provider: MICKI COTTER AR Report Released Date/Time: Dec 23, 2023 04:13 PM Reporting Lab: [facility] [address] [facility] [address] Performing Lab: [facility] [address] [facility] [address] [facility] PREGNANC Y TEST URINE (MA-STL) CHORIOGONA DOTROPIN ( TEST) [PRESENCE] IN URINE NEG 12/22 Specimen Type: URINE No comment entered. Ordering Provider: MICKI COTTER Report Released Date/Time: Dec 23, 2023 04:13 PM Reporting Lab: [place] [address] [facility] [address] Performing Lab: [place] [address] [facility] [address] [facility] URINALYS IS (STL-PB) COLOR OF URINE Colorles s 12/22 Specimen Type: URINE No comment entered. Ordering Provider: MICKI COTTER Report Released Date/Time: Dec 23, 2023 04:13 PM Reporting Lab: [place] [address] [facility] [address] Performing Lab: [place] [address] [facility] [address] [facility] URINALYS IS (STL-PB) BILIRUBIN. TOTAL [PRESENCE] IN URINE BY TEST STRIP Negative mg/dL 12/22 Specimen Type: URINE No comment entered. Ordering Provider: MICKI COTTER Report Released Date/Time: Dec 23, 2023 04:13 PM Reporting Lab: [place] [address] [facility] [address] Performing Lab: [place] [address] [facility] [address] [facility] URINALYS IS (STL-PB) PH OF URINE BY TEST STRIP 6.5 5.0 - 8.0 12/22 Specimen Type: URINE No comment entered. Ordering Provider: MICKI COTTER AR Report Released Date/Time: Dec 23, 2023 04:13 PM Reporting Lab: [facility] [address] [facility] [address] Performing Lab: [address] [address] [facility] URINALYS IS (STL-PB) APPEARANCE OF URINE Clear 12/22 Specimen Type: URINE No comment entered. Ordering Provider: IMCKI COTTER Report Released Date/Time: Dec 23, 2023 04:13 PM Reporting Lab: [place] [address] [facility] [address] Performing Lab: [address] [address] [facility] URINALYS IS (STL-PB) NITRITE [PRESENCE] IN URINE BY TEST STRIP Negative mg/dL 12/22 Specimen Type: URINE No comment entered. Ordering Provider: MICKI COTTER Report Released Date/Time: Dec 23, 2023 04:13 PM Reporting Lab: [place] [address] [facility] [address] Performing Lab: [address] [address] [facility] URINALYS IS (STL-PB) GLUCOSE [MASS/VOLU ME] IN URINE BY TEST STRIP Normalmg /dL 12/22 Specimen Type: URINE No comment entered. Ordering Provider: MICKI COTTER AR Report Released Date/Time: Dec 23, 2023 04:13 PM Reporting Lab: [place] [address] [facility] [address] Performing Lab: [address] [address] [facility] URINALYS IS (STL-PB) PROTEIN [MASS/VOLU ME] IN URINE BY TEST STRIP Negative mg/dL - 20 12/22 Specimen Type: URINE No comment entered. Ordering Provider: MICKI COTTER Report Released Date/Time: Dec 23, 2023 04:13 PM Reporting Lab: [facility] [address] [facility] [address] Performing Lab: [facility] [address] [facility] [address] [facility] URINALYS IS (STL-PB) URN.UROBIL INOGEN Normalmg /dL 12/22 Specimen Type: URINE No comment entered. Ordering Provider: MICKI COTTER Report Released Date/Time: Dec 23, 2023 04:13 PM Reporting Lab: [place] [address] [facility] [address] Performing Lab: [address] [address] [facility] URINALYS IS (STL-PB) HEMOGLOBIN [MASS/VOLU ME] IN URINE BY TEST STRIP Negative mg/dL 12/22 Specimen Type: URINE No comment entered. Ordering Provider: MICKI COTTER Report Released Date/Time: Dec 23, 2023 04:13 PM Reporting Lab: [place] [address] [facility] [address] Performing Lab: [address] [address] [facility] URINALYS IS (STL-PB) KETONES [MASS/VOLU ME] IN URINE BY TEST STRIP Negative mg/dL 12/22 Specimen Type: URINE No comment entered. Ordering Provider: MICKI COTTER Report Released Date/Time: Dec 23, 2023 04:13 PM Reporting Lab: [place] [address] [facility] [address] Performing Lab: [address] [address] [facility] URINALYS IS (STL-PB) URN.LEUK.E ST. Negative mg/dL 12/22 Specimen Type: URINE No comment entered. Ordering Provider: MICKI COTTER Report Released Date/Time: Dec 23, 2023 04:13 PM Reporting Lab: [place] [address] [address] [facility] [address] Performing Lab: [place] [address] [facility] [phone] [place] [address] URINALYS IS (STL-PB) SPECIFIC GRAVITY OF URINE 1.009 1.005 - 1.029 12/22 Specimen Type: URINE No comment entered. Ordering Provider: MICKI COTTER Report Released Date/Time: Dec 23, 2023 04:13 PM Reporting Lab: [place] [address] [facility] [address] Performing Lab: [address] METHADON E PANEL (STL) ETHANOL [MASS/VOLU ME] IN URINE Negative mg/dL 0 - 20 04/12 Specimen Type: URINE Comment: The cut-off value for this test was laboratory developed and its performance characteris tics confirmed by the [facility] laboratory thru method comparison with reference laboratory and medication chart review. The laboratory is regulated under CLIA as qualified to perform high-comple xity testing. This test is used for clinical purposes in conjunction with other laboratory tests. Ordering Provider: MERLE LANG Report Released Date/Time: Apr 12, 2023 07:25 AM Reporting Lab: [address] [address] Performing Lab: [address] [address] [facility] METHADON E PANEL (STL) AMPHETAMIN E [PRESENCE] IN URINE BY SCREEN METHOD Negative ng/mL 04/12 Specimen Type: URINE Comment: The cut-off value for this test was laboratory developed and its performance characteris tics confirmed by the [facility] laboratory thru method comparison with reference laboratory and medication chart review. The laboratory is regulated under CLIA as qualified to perform high-comple xity testing. This test is used for clinical purposes in conjunction with other laboratory tests. Ordering Provider: MERLE LANG Report Released Date/Time: Apr 12, 2023 07:25 AM Reporting Lab: [place] [address] [facility] [address] Performing Lab: [address] [address] [facility] METHADON E PANEL (STL) BENZOYLECG ONINE [PRESENCE] IN URINE Negative ng/mL 04/12 Specimen Type: URINE Comment: The cut-off value for this test was laboratory developed and its performance characteris tics confirmed by the [facility] laboratory thru method comparison with reference laboratory and medication chart review. The laboratory is regulated under CLIA as qualified to perform high-comple xity testing. This test is used for clinical purposes in conjunction with other laboratory tests. Ordering Provider: MERLE LANG Report Released Date/Time: Apr 12, 2023 07:25 AM Reporting Lab: [address] [address] Performing Lab: [address] [address] [facility] METHADON E PANEL (STL) BENZODIAZE PINES [PRESENCE] IN URINE BY SCREEN METHOD Negative ng/mL 04/12 Specimen Type: URINE Comment: The cut-off value for this test was laboratory developed and its performance characteris tics confirmed by the [facility] laboratory thru method comparison with reference laboratory and medication chart review. The laboratory is regulated under CLIA as qualified to perform high-comple xity testing. This test is used for clinical purposes in conjunction with other laboratory tests. Ordering Provider: MERLE LANG Report Released Date/Time: Apr 12, 2023 07:25 AM Reporting Lab: [address] [address] Performing Lab: [address] [address] [facility] METHADON E PANEL (STL) CANNABINOI DS [PRESENCE] IN URINE BY SCREEN METHOD 100-POSn g/mL 04/12 Specimen Type: URINE Comment: The cut-off value for this test was laboratory developed and its performance characteris tics confirmed by the [facility] laboratory thru method comparison with reference laboratory and medication chart review. The laboratory is regulated under CLIA as qualified to perform high-comple xity testing. This test is used for clinical purposes in conjunction with other laboratory tests. Ordering Provider: MERLE LANG Report Released Date/Time: Apr 12, 2023 07:25 AM Reporting Lab: [facility] [address] [facility] [address] Performing Lab: [facility] [address] [facility] [address] [facility] METHADON E PANEL (STL) METHADONE [PRESENCE] IN URINE Negative ng/mL 04/12 Specimen Type: URINE Comment: The cut-off value for this test was laboratory developed and its performance characteris tics confirmed by the [facility] laboratory thru method comparison with reference laboratory and medication chart review. The laboratory is regulated under CLIA as qualified to perform high-comple xity testing. This test is used for clinical purposes in conjunction with other laboratory tests. Ordering Provider: MERLE LANG Report Released Date/Time: Apr 12, 2023 07:25 AM Reporting Lab: [facility] [address] [facility] [address] Performing Lab: [place] [address] [facility] [address] [facility] METHADON E PANEL (STL) OPIATES [PRESENCE] IN URINE BY SCREEN METHOD Negative ng/mL 04/12 Specimen Type: URINE Comment: The cut-off value for this test was laboratory developed and its performance characteris tics confirmed by the [facility] laboratory thru method comparison with reference laboratory and medication chart review. The laboratory is regulated under CLIA as qualified to perform high-comple xity testing. This test is used for clinical purposes in conjunction with other laboratory tests. Ordering Provider: MERLE LANG Report Released Date/Time: Apr 12, 2023 07:25 AM Reporting Lab: [facility] [address] [address] Performing Lab: [address] [address] [facility] METHADON E PANEL (STL) CREATININE [MASS/VOLU ME] IN URINE 59.3 mg/dL 47 - 110 04/12 Specimen Type: URINE Comment: The cut-off value for this test was laboratory developed and its performance characteris tics confirmed by the [facility] laboratory thru method comparison with reference laboratory and medication chart review. The laboratory is regulated under CLIA as qualified to perform high-comple xity testing. This test is used for clinical purposes in conjunction with other laboratory tests. Ordering Provider: MERLE LANG Report Released Date/Time: Apr 12, 2023 07:25 AM Reporting Lab: [address] [address] Performing Lab: [address] [address] [facility] METHADON E PANEL (STL) OXYCODONE CUTOFF [MASS/VOLU ME] IN URINE FOR SCREEN METHOD Negative ng/mL 04/12 Specimen Type: URINE Comment: The cut-off value for this test was laboratory developed and its performance characteris tics confirmed by the [facility] laboratory thru method comparison with reference laboratory and medication chart review. The laboratory is regulated under CLIA as qualified to perform high-comple xity testing. This test is used for clinical purposes in conjunction with other laboratory tests. Ordering Provider: MERLE LANG Report Released Date/Time: Apr 12, 2023 07:25 AM Reporting Lab: [address] [address] Performing Lab: [address] [address] [facility] METHADON E PANEL (STL) BUPRENORPH INE [PRESENCE] IN URINE Negative 04/12 Specimen Type: URINE Comment: The cut-off value for this test was laboratory developed and its performance characteris tics confirmed by the [facility] laboratory thru method comparison with reference laboratory and medication chart review. The laboratory is regulated under CLIA as qualified to perform high-comple xity testing. This test is used for clinical purposes in conjunction with other laboratory tests. Ordering Provider: MERLE LANG Report Released Date/Time: Apr 12, 2023 07:25 AM Reporting Lab: [place] [address] [facility] [address] Performing Lab: [address] [address] [facility] METHADON E PANEL (STL) FENTANYL [PRESENCE] IN URINE Negative ng/mL 04/12 Specimen Type: URINE Comment: The cut-off value for this test was laboratory developed and its performance characteris tics confirmed by the [facility] laboratory thru method comparison with reference laboratory and medication chart review. The laboratory is regulated under CLIA as qualified to perform high-comple xity testing. This test is used for clinical purposes in conjunction with other laboratory tests. Ordering Provider: MERLE LANG Report Released Date/Time: Apr 12, 2023 07:25 AM Reporting Lab: [address] [address] Performing Lab: [address] [address] [facility] GC & CHLAMYDI A PCR (STL-PB) [...] Apr 06, 2023 02:04 PM Reporting Lab: [facility] [address] [facility] [address] Performing Lab: [facility] [address] [facility] [address] [facility] GC & CHLAMYDI A PCR ([facility]-PB) CHLAMYDIA SP DNA [PRESENCE] IN URINE BY [...] Apr 06, 2023 02:04 PM Reporting Lab: [facility] [address] [facility] [address] Performing Lab: [facility] [address] [place] [address] [facility] RAPID PLASMA REAGIN (RPR) REAGIN AB [PRESENCE] IN SERUM BY RPR NON-REAC TIVE 04/07 Specimen Type: SERUM No comment entered. Ordering Provider: MARNE GROVE Report Released Date/Time: Apr 06, 2023 02:04 PM Reporting Lab: [facility] [address] [facility] [address] Performing Lab: [facility] [address] [place] [address] [facility] Vital Signs Combined list of inpatient and outpatient Vital Signs from Department of [facility] and [facility], ranging from 12 months to all on record, depending upon the facility. Vital Sign Value Date Comments Source SYSTOLIC BLOOD PRESSURE 105 12/24/2023 05:39:08 [facility] DIASTOLIC BLOOD PRESSURE 67 12/24/2023 05:39:08 [facility] PULSE OXIMETRY 100 12/24/2023 05:39:08 [facility] PAIN 1 12/24/2023 05:39:08 [facility] TEMPERATURE 98.7 12/24/2023 05:39:08 [facility] PULSE 62 12/24/2023 05:39:08 [facility] RESPIRATION 16 12/24/2023 05:39:08 [facility] SYSTOLIC BLOOD PRESSURE 116 12/23/2023 16:08:00 [facility] DIASTOLIC BLOOD PRESSURE 69 12/23/2023 16:08:00 [facility] PAIN 0 12/23/2023 16:08:00 [facility] TEMPERATURE 98.2 12/23/2023 16:08:00 [facility] PULSE 94 12/23/2023 16:08:00 [facility] RESPIRATION 16 12/23/2023 16:08:00 [facility] Encounters Combined list of: 1) Encounters from Department of [facility] facilities going backup to the last 18 months, not all [place] inpatient encounters are included; 2) Encounters from the Department of [facility] facilities going backup to 280 months. Location Location Details Encounter Type Encounter Number Reason For Visit Attending Provider ADM Date DC Date Status Disposition Source [facility](IEP Primary Care) OUTPATIENT [id number] Notes Entered by: VERNON DURÁN OD 29 Sep 2017 1104 ------- ------- ------- ------- -- right ankle injury TEZ AJ 09/29 Released with Work/Duty Limitations [employer](I EP Primary Care) [employer](PES Optometry -Trainee) OUTPATIENT [id number] BARRON LEAL Nigel 09/29 Released w/o Limitations [employer](P ES Optomet ry-Kirill nee) [employer]([facility] Physical Exam) OUTPATIENT [id number] Notes Entered by: Nicolasa CHEATHAM 03 Oct 2017 0734 ------- ------- ------- ------- -- To get clear to ship for right ankle TEZ AJ 10/03 Released w/o Limitations [employer](R MC Physica l Exam) [employer](JORGE LUIS C Immunizat ions (Post)) OUTPATIENT [id number] Notes Entered by: Pieter GOMEZ 04 Oct 2017 1005 ------- ------- ------- ------- -- IET MESHA NOLAN 10/04 Released w/o Limitations [facility] Immuniz ations (Post)) [facility] Physical Therapy) OUTPATIENT [id number] Notes Entered by: FORTUNATO ORDOÑEZ 06 Oct 2017 0955 ------- ------- ------- ------- -- Ankle pain DULCE MARIA KEMP 10/06 Released w/o Limitations [facility](T MC Physica l Therapy ) [facility] Physical Therapy) OUTPATIENT [id number] Notes Entered by: FORTUNATO ORDOÑEZ 12 Oct 2017 1021 ------- ------- ------- ------- -- Ankle pain DULCE MARIA KEMP 10/12 Released with Work/Duty Limitations [employer](T MC Physica l Therapy ) [facility](JORGE [facility] C Immunizat ions (Post)) OUTPATIENT [id number] Notes Entered by: Pieter GOMEZ 02 Nov 2017 1017 ------- ------- ------- ------- -- DF MESHA NOLAN 11/02 Released w/o Limitations [facility](M [facility] Immuniz ations (Post)) [facility]([address]) OUTPATIENT [id number] Notes Entered by: RIO LIPSCOMB 02 Jan 2018 0701 ------- ------- ------- ------- -- Lighthe aded Dizzy HARITHA NGO 01/02 Sick at Home/Quarter s [facility]([address]) [facility]([address]) TELE CONSULT [id number] Notes Entered by: HARITHA NGO 03 Jan 2018 1018 ------- ------- ------- ------- -- To review labs ELPIDIO TURCIOS 01/03 [facility]([address]) [facility]([address]) OUTPATIENT [id number] Notes Entered by: RIO LIPSCOMB 05 Jan 2018 0633 ------- ------- ------- ------- -- Follow up call back HARITHA NGO 01/05 Released w/o Limitations [facility]([address]) [facility]([address]) OUTPATIENT [id number] Notes Entered by: SORIN HERZOG 13 Jan 2018 0643 ------- ------- ------- ------- -- ankle pain HARITHA NGO 01/13 Released with Work/Duty Limitations [facility]([address]) [facility]([address]) OUTPATIENT [id number] Notes Entered by: SORIN HERZOG 24 Jan 2018 0634 ------- ------- ------- ------- -- follow up HARITHA NGO 01/24 Released with Work/Duty Limitations [facility]([address]) [facility]([address]) OUTPATIENT [id number] Notes Entered by: RIO LIPSCOMB 30 Jan 2018 0636 ------- ------- ------- ------- -- Ankle pain F/U HARITHA NGOPOONAM 01/30 Released with Work/Duty Limitations [facility]([address]) [facility]([address]) TELE CONSULT [id number] Notes Entered by: Dick ZAMAN 14 Feb 2018 1447 ------- ------- ------- ------- -- f/u mri WALLY ZAMAN 02/14 [facility]([address]) [facility]([address]) OUTPATIENT [id number] Notes Entered by: Aaron RODRIGUEZ 15 Feb 2018 0705 ------- ------- ------- ------- -- Right Ankle AMINTA BRAMBILA 02/15 Released with Work/Duty Limitations [facility]([address]) [facility]([address]) OUTPATIENT [id number] Pain in right ankle and joints of right foot AMINTA BRAMBILA 02/20 Released with Work/Duty Limitations [facility]([address]) [facility]) OUTPATIENT [id number] unstabl e fractur ed ankle DUERDESTEFANI MOBLEY 02/21 Released w/o Limitations [facility](Anil t & Ankle Clinic [facility]) [facility]([address]) OUTPATIENT [id number] Ankle Pain AMINTA BRAMBILA 02/24 Released w/o Limitations [facility](TMC -1 Primary Care ID) [facility] Marjorie Brasher [place]([facility]) OUTPATIENT [id number] Notes Entered by: MIKE POWELL 08 Sep 2018 0929 ------- ------- ------- ------- -- imr/pha /mf 830/flu /hep b/g6pd/ vision YESSENIA LEE 09/08 Released w/o Limitations [facility] [place]) [facility] [place] [facility] Conserv[facility] [place] Ex[place] OUTPATIENT [id number] Notes Entered by: MANUEL BASURTO 08 Sep 2018 1112 ------- ------- ------- ------- -- MANUEL Rossi 09/08 Released w/o Limitations [facility] [place] [facility] [place] [facility] ([facility] [place]) TELE CONSULT [id number] Notes Entered by: Sandi CHANEY 23 Sep 2018 0744 ------- ------- ------- ------- -- F/u ER visit NYDIA CHANEY 09/23 Referred for Appointment [facility] ([facility] [place]) [facility] PRO PHONE CALL 11-20 MIN [id number] Diagnos is: ICD-10- CM Z59.02 Unshelt ered homeBUD Posey P 06/[address] [facility] PRO PHONE CALL 11-20 MIN [id number] [id number] Diagnos is: ICD-10- CM Z59.02 Unshelt ered homeles BUD Brewster P 12/28 /[address] [facility] CASE MANAGEMENT [id number] [id number] Diagnos is: ICD-10- CM Z59.02 Unshelt ered BUD ByrdNE P 07/[address] [facility] HC PRO PHONE CALL 11-20 MIN [id number] [id number] Diagnos is: ICD-10- CM F43.10 Post-tr aumatic stress disorde r, unspeci REN Hassan 07/05 [facility] Outpatient Encounter [id number] 07/05 [facility] PRO PHONE CALL 5-10 MIN [id number] [id number] Diagnos is: ICD-10- CM Z59.02 Unshelt BUD Solis LAURA P 07/[address] [facility] [id number] [id number] Diagnos is: ICD-10- CM Z59.02 Unshelt ered BUD Byrd LAURA P 07/[address] [facility] [place] HC PRO PHONE CALL 5-10 MIN [id number] [id number] Diagnos is: ICD-10- CM Z59.02 Unshelt ered BUD Byrd LAURA P 07/[address] [facility] HC PRO PHONE CALL 11-20 MIN [id number] [id number] Diagnos is: ICD-10- CM F43.10 Post-tr aumatic stress disorde r, unspeci REN Hassan 07/27 [facility] Outpatient Encounter [id number] [id number] Diagnos is: ICD-10- CM F10.20 Alcohol depende nce, uncompl icated LAY XIONG LBFrancisca L 07/28 [facility] Outpatient Encounter [id number] [id number] 07/28 [facility] HC PRO PHONE CALL 21-30 MIN [id number] [id number] Diagnos is: ICD-10- CM F43.10 Post-tr aumatic stress disorde r, unspeci fied BELLA BUSTOS S 07/28 [facility] Outpatient Encounter [id number] [id number] 07/28 [facility] Outpatient Encounter [id number] [id number] BELLA BUSTOS S 07/28 [facility] Outpatient Encounter [id number] [id number] 07/28 [facility] Outpatient Encounter [id number] [id number] 07/29 [facility] QNHP OL DIG ASSMT&MGMT 11-20 [id number] [id number] Diagnos is: ICD-10- CM R45.851 Suicida l ideatio ns CASADY,TAR A E 07/29 [facility] Outpatient Encounter [id number] [id number] BELLA BUSTOS S 07/29 [facility] HC PRO PHONE CALL 21-30 MIN [id number] [id number] Diagnos is: ICD-10- CM Z59.02 Unshelt BUD Solis P 08/01 [address] [facility] Outpatient Encounter [id number] [id number] ALEX BECK AN 08/01 [facility] HC PRO PHONE CALL 21-30 MIN [id number] [id number] Diagnos is: ICD-10- CM R45.851 Suicida l ideatio ns CASADY,TAR A E 08/01 [facility] HC PRO PHONE CALL 21-30 MIN [id number] [id number] Diagnos is: ICD-10- CM R45.851 Suicida l ideatio ns CASADY,TAR A E 08/01 [facility] CASE MANAGEMENT [id number] [id number] Diagnos is: ICD-10- CM Z59.02 Unshelt BUD Solis P 08/02 [address] [facility] HC PRO PHONE CALL 21-30 MIN [id number] [id number] Diagnos is: ICD-10- CM F10.20 Alcohol depende nce, uncompl icated CASADY,TAR A E 08/04 [facility] Outpatient Encounter [id number] [id number] 08/05 [facility] Outpatient Encounter [id number] [id number] CASADY,TAR A E 08/08 [facility] [address] [facility] PSYTX W PT 45 MINUTES [id number] [id number] Diagnos is: ICD-10- CM Z59.02 Unshelt ered BUD ByrdNE P 08/[address] [facility] Outpatient Encounter [id number] [id number] 08/09 [facility] [address] [facility] HC PRO PHONE CALL 11-20 MIN [id number] [id number] Diagnos is: ICD-10- CM Z59.02 Unshelt ered BUD ByrdNE P 08/[address] [facility] HC PRO PHONE CALL 21-30 MIN [id number] [id number] Diagnos is: ICD-10- CM F43.12 Post-tr aumatic stress disorde r, chronic CASADY,TAR A E 08/09 [facility] [address] [facility] PSYTX W PT 30 MINUTES [id number] [id number] Diagnos is: ICD-10- CM Z59.02 Unshelt ered BUD Byrd P 08/[address] [facility] Outpatient Encounter [id number] [id number] 08/12 [facility] Outpatient Encounter [id number] [id number] 08/12 [facility] Outpatient Encounter [id number] [id number] ALEX BECK 08/15 [facility] PRO PHONE CALL 5-10 MIN [id number] [id number] Diagnos is: ICD-10- CM Z71.89 Other specifi ed financial aid counselor ing KIRANALEX JEROMY 08/15 [facility] N [address] [facility] PSYTX W PT 45 MINUTES [id number] [id number] 446 Diagnos is: ICD-10- CM Z59.02 Unshelt ered homeles BUD Brewster P 08/[address] [facility] PSYTX W PT 60 MINUTES [id number] [id number] Diagnos is: ICD-10- CM F43.10 Post-tr aumatic stress disorde r, unspeci fied TYRESE,SHE LBY L 08/15 [facility] Outpatient Encounter [id number] 08/17 [facility] HC PRO PHONE CALL 11-20 MIN [id number] [id number] Diagnos is: ICD-10- CM F43.12 Post-tr aumatic stress disorde r, chronic CASADY,TAR A E 08/24 [facility] Outpatient Encounter [id number] [id number] Diagnos is: ICD-10- CM F43.10 Post-tr aumatic stress disorde r, unspeci fied LATAL,PAWEL PO S 08/24 [facility] OFFICE O/P EST HI 40 MIN [id number] [id number] Diagnos is: ICD-10- CM F43.10 Post-tr aumatic stress disorde r, unspeci fied LATAL,PAWEL PO S 08/24 [facility] [address] [facility] CASE MANAGEMENT [id number] [id number] Diagnos is: ICD-10- CM Z59.02 Unshelt BUD Solis P 08/[address] [facility] PSYTX W PT 45 MINUTES [id number] [id number] Diagnos is: ICD-10- CM F43.12 Post-tr aumatic stress disorde r, chronic TYRESE,SHE LBY L 08/30 [facility] HC PRO PHONE CALL 21-30 MIN [id number] [id number] Diagnos is: ICD-10- CM F43.12 Post-tr aumatic stress disorde r, chronic CASADY,TAR A E 09/01 [facility] [place] [address] [facility] HC PRO PHONE CALL 5-10 MIN [id number] [id number] Diagnos is: ICD-10- CM Z59.02 UnsBUD Leblanc P 09/[address] [facility] [place] [facility] HC PRO PHONE CALL 11-20 MIN [id number] [id number] Diagnos is: ICD-10- CM Z59.02 UnshelBUD LooNE P 09/[address] [facility] [place] [facility]NAGEMENT [id number] [id number] Diagnos is: ICD-10- CM Z59.02 Unshelt BUD SolisNE P 09/[address] [facility] OFFICE O/P NEW MOD 45 MIN [id number] [id number] Diagnos is: ICD-10- CM F43.10 Post-tr aumatic stress disorde r, unspeci fied MAIRA,JEROMY NA TRIXIE E 09/12 [facility] [address] [facility] HC PRO PHONE CALL 21-30 MIN [id number] [id number] 020 Diagnos is: ICD-10- CM Z59.02 Unshelt ered BUD ByrdNE P 09/[address] [facility] PSYTX W PT 45 MINUTES 57155-8.65 [id number] 523 Diagnos is: ICD-10- CM Z59.02 Unshelt ered BUD ByrdNE P 09/[address] [facility] PSYTX W PT 60 MINUTES [id number] [id number] Diagnos is: ICD-10- CM F31.89 Other bipolar disorde r LAY XIONG L 09/19 [facility] [address] [facility] PT EDUCATION NOC INDIVID [id number] [id number] Diagnos is: ICD-10- CM Z59.02 Unshelt ered BUD ByrdNE P 09/[address] [facility] HC PRO PHONE CALL 5-10 MIN [id number] [id number] Diagnos is: ICD-10- CM Z59.02 Unshelt ered BUD ByrdNE P 09/[address] [facility] PT EDUCATION NOC INDIVID [id number] [id number] Diagnos is: ICD-10- CM Z59.9 Problem related to housing and economi c whitley ely, SHELLEY Myrick 09/[address] [facility] PSYTX W PT 60 MINUTES [id number] [id number] Diagnos is: ICD-10- CM F31.89 Other bipolar disorde LYA Ramirez LBY L 10/03 [facility] PRO PHONE CALL 11-20 MIN [id number] [id number] Diagnos is: ICD-10- CM Z59.02 Unshelt ered homeles anel NGUYEN,BUD LAURA P 10/03 [address] [facility] Outpatient Encounter [id number] [id number] 10/04 [facility] Outpatient Encounter [id number] [id number] 10/05 [facility] PSYTX W PT 30 MINUTES 91510-8.65 [id number] Diagnos is: ICD-10- CM Z59.02 Unshelt ered homeBUD Posey LAURA P 10/09 [address] [facility] HC PRO PHONE CALL 21-30 MIN [id number] [id number] Diagnos is: ICD-10- CM Z59.9 Problem related to housing and economi c circums taneverardo, SHELLEY Myrick M 10/16 [address] [facility] [place] [facility] HC PRO PHONE CALL 21-30 MIN [id number] [id number] Diagnos is: ICD-10- CM Z59.9 Problem related to housing and economi c circums jhoana, kenya PATRICK,BUD LAURA P 10/16 [address] [facility] Outpatient Encounter [id number] [id number] 10/17 [facility] Outpatient Encounter [id number] [id number] 10/17 [facility] N [facility] Outpatient Encounter [id number] [id number] 10/17 [facility] Outpatient Encounter [id number] [id number] CATE HUNG E 10/24 [facility] [address] [address] [facility] HC PRO PHONE CALL 21-30 MIN 37602-4.65 [id number] Diagnos is: ICD-10- CM Z59.9 Problem related to housing and economi c circums tances, unsp JANOCH,MAD LAURA P 10/26 [address] [facility] Outpatient Encounter [id number] ALLEY DEL CID 10/26 [facility] [address] [facility] CASE MANAGEMENT [id number] [id number] Diagnos is: ICD-10- CM Z59.89 Other problem s related to housing and economi c circums tances GREEN,LEANN SEA 10/31 [address] [facility] [place] [address] [place] [facility] HC PRO PHONE CALL 5-10 MIN 05707-7.65 [id number] 037 Diagnos is: ICD-10- CM Z59.9 Problem related to housing and economi c circums tances, unsp JANOCH,MAD LAURA P 11/02 [address] [facility] Outpatient Encounter [id number] [id number] 11/06 [facility] [address] [address] [facility] HC PRO PHONE CALL 21-30 MIN [id number] [id number] Diagnos is: ICD-10- CM Z59.89 Other problem s related to housing and economi c circums tances GREEN,LEANN SEA 11/[address] [facility] Outpatient Encounter [id number] [id number] 11/09 [facility] HC PRO PHONE CALL 21-30 MIN [id number] [id number] Diagnos is: ICD-10- CM Z59.89 Other problem s related to housing and economi c whitley LARALEANN SEA 11/10 [address] [facility] CASE MANAGEMENT [id number] [id number] Diagnos is: ICD-10- CM Z59.89 Other problem s related to housing and economi c whitley LARALEANN SEA 11/14 [address] [facility] OFFICE O/P EST MOD 30 MIN [id number] [id number] Diagnos is: ICD-10- CM F10.20 Alcohol depende nce, uncompl icated MAIRA,AN NA TRIXIE E 11/14 [facility] Outpatient Encounter [id number] [id number] 11/14 [address] [facility] Outpatient Encounter [id number] [id number] 11/15 [facility] Outpatient Encounter [id number] [id number] 11/16 [facility] PRO PHONE CALL 21-30 MIN [id number] [id number] Diagnos is: ICD-10- CM F10.20 Alcohol depende nce, uncompl icated CASADY,TAR A E 11/20 [facility] HC PRO PHONE CALL 11-20 MIN [id number] [id number] Diagnos is: ICD-10- CM Z71.89 Other specifi ed financial aid counselor ALEX Crenshaw 11/21 [facility] [address] [facility] CASE MANAGEMENT [id number] [id number] Diagnos is: ICD-10- CM Z59.89 Other problem s related to housing and economi c circums taneverardo GREEN,LEANN SEA 11/[address] [facility] Outpatient Encounter [id number] [id number] 11/23 [facility] HC PRO PHONE CALL 5-10 MIN [id number] [id number] Diagnos is: ICD-10- CM Z71.89 Other specifi ed financial aid counselor ing ALEX BECK 11/29 [facility] [address] [facility] CASE MANAGEMENT 67438-4.65 [id number] Diagnos is: ICD-10- CM Z59.89 Other problem s related to housing and economi c circums jhoana GREEN,LEANN SEA 11/[address] [facility] [place] [facility] CASE MANAGEMENT [id number] [id number] Diagnos is: ICD-10- CM Z59.89 Other problem s related to housing and economi c circums tances GREEN,LEANN SEA 12/[address] [facility] Outpatient Encounter [id number] [id number] 12/05 [facility] [address] [facility] Outpatient Encounter [id number] [id number] 12/[address] [facility] Encounter [id number] [id number] 12/[address] [facility] Outpatient Encounter [id number] [id number] 12/07 [facility] Outpatient Encounter [id number] [id number] 12/08 [facility] Outpatient Encounter [id number] [id number] 12/08 [facility] [address] [facility] Outpatient Encounter [id number] [id number] 660 12/[address] [facility] Outpatient Encounter [id number] [id number] 12/11 [facility] Encounter [id number] [id number] 12/13 [facility] Outpatient Encounter [id number] [id number] 12/14 [facility] PSYTX W PT 30 MINUTES [id number] [id number] Diagnos is: ICD-10- CM F10.20 Alcohol depende nce, uncompl icated MARIE CLAROS 12/15 [facility] Outpatient Encounter [id number] [id number] 12/22 [facility] OFFICE O/P EST MOD 30 MIN [id number] [id number] Diagnos is: ICD-10- CM F10.20 Alcohol depende nce, uncompl icated JEROMY RAO 12/22 [facility] EMERGENCY DEPT VISIT [facility] [id number] [id number] Diagnos is: ICD-10- CM F10.20 Alcohol depende nce, uncompl icated MUDALLAL,O MAR 12/22 [facility] N [facility] EMERGENCY DEPT VISIT [facility] [id number] Diagnos is: ICD-10- CM F10.20 Alcohol depende nce, uncompl icated MUDALLAL,O MAR 12/22 [facility] Det[facility] [id number] Admit Reason: ALCOHOL DETOXIF ICATION KAMJONI LIMAA SIR 12/22 [facility] Inpatient Encounter [id number] APPIAH,SUSI HELLE E 12/23 [facility] Encounter [id number] APPIAH,SUSI HELLE E 12/23 [facility] In[facility] Encounter [id number] APPIAH,SUSI HELLE E 12/23 [facility] Inpatient Encounter [id number] APPIAH,SUSI HELLE E 12/23 [facility] Inpatient Encounter [id number] [employer] 12/23 [facility] Inpatient Encounter [id number] [employer] 12/23 [facility] PSYCH DIAG EVAL W/MED SRVCS [id number] Diagnos is: ICD-10- CM F10.20 Alcohol depende nce, uncompl icated Dick VILLARREAL NGELA 12/23 [facility] IP/OBS DSCHRG MGMT >30 [id number] Diagnos is: ICD-10- CM F10.20 Alcohol depende nce, uncompl icated LAKIA CHASE S 12/23 [facility] Encounter [id number] SUSI ARORA 12[facility]23 [facility] [facility] [id number] Diagnos is: ICD-10- CM Z59.89 Other problem s related to housing and economi c circums tances GREEN,LEANN SEA 12/25 [facility] Outpatient Encounter [id number] 12/27 [facility] [id number] Diagnos is: ICD-10- CM Z59.89 Other problem s related to housing and economi c circums tances GREEN,LEANN SEA 01/01 [facility] [id number] Diagnos is: ICD-10- CM Z59.89 Other problem s related to housing and economi c circums tances GREEN,LEANN SEA 01/02 KEISHA ZALDIVAR [facility] HC PRO PHONE CALL 11-20 MIN [id number] Diagnos is: ICD-10- CM F10.20 Alcohol depende nce, uncompl icated REN PEREYRA GUCCI BOB 01/02 [facility] Outpatient Encounter [id number] 01/02 [facility] Outpatient Encounter [id number] REN PEREYRA GUCCI BOB 01/02 [facility] Outpatient Encounter [id number] Diagnos is: ICD-10- CM F10.20 Alcohol depende nce, uncompl icated MICHAEL SUAZO 01/03 [facility] Outpatient Encounter [id number] Ish TIAN 01/03 [facility] PSYTX W PT 30 MINUTES [id number] Diagnos is: ICD-10- CM F31.81 Bipolar II disorde r Ish TIAN 01/03 [facility] Outpatient Encounter [id number] 01/03 [facility] Outpatient Encounter [id number] 01/03 [facility] Outpatient Encounter [id number] Ish TIAN 01/05 [facility] N [facility] Outpatient Encounter [id number] Ish TIAN OSWALDO 01/08 [facility] N [facility] PSYTX W PT 60 MINUTES [id number] Diagnos is: ICD-10- CM F10.239 Alcohol depende nce with withdrdick ceja, unspeci fay Ish TIAN OSWALDO 01/09 [facility] N [facility] Outpatient Encounter [id number] 01/09 [facility] N [facility] [id number] Diagnos is: ICD-10- CM Z59.89 Other problem s related to housing and economi c circums LEANN Tsai 01/[address] [facility] HC PRO PHONE CALL 11-20 MIN [id number] Diagnos is: ICD-10- CM F10.20 Alcohol depende nce, uncompl icated REN PEREYRA 01/15 [facility] Outpatient Encounter [id number] 01/15 [facility] N [facility] Outpatient Encounter [id number] REN PEREYRA 01/15 [facility] OFFICE O/P EST MOD 30 MIN [id number] Diagnos is: ICD-10- CM F43.10 Post-tr aumatic stress disorde r, unspeci fiJEROMY Briscoe 02/02 [facility] N [facility] Outpatient Encounter [id number] 02/20 [facility] Outpatient Encounter [id number] 03/07 [facility] [id number] Diagnos is: ICD-10- CM Z59.89 Other problem s related to housing and economi c circums taneverardo GREEN,LEANN SEA 03/09 [facility] Outpatient Encounter [id number] GREEN,LEANN SEA 03/09 [facility] Outpatient Encounter [id number] GREEN,LEANN SEA 03/09 [facility] OFFICE O/P EST MOD 30 MIN [id number] Diagnos is: ICD-10- CM F43.10 Post-tr aumatic stress disorde r, unspeci fied JEROMY RAO E 03/22 [facility] Outpatient Encounter [id number] 03/27 [facility] Outpatient Encounter [id number] Ish TIAN 03/27 [facility] QNHP OL DIG ASSMT&MGMT 5-10 [id number] Diagnos is: ICD-10- CM F43.10 Post-tr aumatic stress disorde r, unspeci fied BELLA BUSTOSYN S 03/27 [facility] HC PRO PHONE CALL 11-20 MIN [id number] Diagnos is: ICD-10- CM F10.220 Alcohol depende nce with intoxic ation, uncompl icated Ish TIANTTA 03/27 [facility] Outpatient Encounter [id number] 04/01 [facility] CRISIS INTERVEN SVC, 15 MIN [id number] Diagnos is: ICD-10- CM F43.12 Post-tr aumatic stress disorde r, chronic O'JO,CO LLEEN E 04/01 [facility] HL BHV ASSMT/REAS SESSMENT [id number] Diagnos is: ICD-10- CM Z78.9 Other specifi ed health status MORE LOPEZ 04/03 [facility] Outpatient Encounter [id number] MARIE CLAROS 04/04 [facility] Outpatient Encounter [id number] 04/04 [facility] Outpatient Encounter [id number] 04/05 [facility] Outpatient Encounter [id number] JAYRO ANTONIO 04/06 [facility] Outpatient Encounter [id number] REN PEREYRA LISBETH 04/06 [facility] HC PRO PHONE CALL 5-10 MIN [id number] Diagnos is: ICD-10- CM F10.20 Alcohol depende nce, uncompl icated REN PEREYRA LISBETH 04/09 [facility] Outpatient Encounter [id number] RNE PEREYRA LISBETH 04/09 [facility] [id number] Diagnos is: ICD-10- CM Z59.89 Other problem s related to housing and economi c LEANN Leal 04/09 [facility] OFF[facility] O/P EST MOD 30 MIN [id number] Diagnos is: ICD-10- CM F43.10 Post-tr aumatic stress disorde r, unspeci fiJEROMY Briscoe 05/04 [facility] Outpatient Encounter [id number] 05/07 [facility] N [facility] Outpatient Encounter [id number] Ish TIAN 06/07 [facility] PRO PHONE CALL 11-20 MIN [id number] Diagnos is: ICD-10- CM F10.20 Alcohol depende nce, uncompl icated MARIE CLAROS 06/08 [facility]P EST MOD 30 MIN [id number] Diagnos is: ICD-10- CM F43.10 Post-tr aumatic stress disorde r, unspeci michelleakiko MAIRAJEROMY E 06/29 [facility] N [facility] Outpatient Encounter [id number] JAYLANIsh OSWALDO 07/25 [facility] PH1 ASSMT&MGMT NQHP 5-10 [id number] Diagnos is: ICD-10- CM F10.220 Alcohol depende nce with intoxic ation, uncompl icated Ish TIAN 07/25 [facility] SYNCH AUDIO-ONLY EST MOD 30 [id number] Diagnos is: ICD-10- CM F43.10 Post-tr aumatic stress disorde r, unspeci JEROMY Dorantes E 08/24 [facility] Outpatient Encounter [id number] 08/27 [facility] PSYTX W PT W E/M 30 MIN [id number] Diagnos is: ICD-10- CM F43.10 Post-tr aumatic stress disorde r, unspecJEROMY Bedoya E 11/08 [facility] Procedures Combined list of: 1) Procedures from Department of Veterans Affairs facilities going back up to thelast 18 months, not all VA non-surgical procedures are included; 2) All procedures from the Department of Defense facilities. Procedure Procedure Type Code Date Perfomer Comments Sourc e TELE ASSESS & MGT SRV PROV QUAL NONPHYS HLTH CARE PRO TO EST PAT,PARENT,GUARD NOT ORIG REL ASSESS & MGT SRV PROV W/IN PREV 7 DAYS NOR LEAD ASSESS & MGT SRV/PX W/IN NXT 24 HR/SOON APT;5-10 MIN MED DIS 018 DoD TELE ASSESS & MGT SRV PROV QUAL NONPHYS HLTH CARE PRO TO EST PAT,PARENT,GUARD NOT ORIG REL ASSESS & MGT SRV PROV W/IN PREV 7 DAYS NOR LEAD ASSESS & MGT SRV/PX W/IN NXT 24 HR/SOON APT;5-10 MIN MED DIS 018 DoD PSYCHOLOGICAL TSTING (INCL PSYCHODIAG ASSESSMNT, EMOTITY, INTELLECTUAL ABILITIES, PERSONALITY &PSYCHOPATHOLOGY, EG, MMPI), ADMINISTERED COMPUTER, W QUALIFIED HEALTH BULB PACKER INTERPRET &RPT [facility] VARICELLA VIRUS VACCINE (LESLYE), LIVE, FOR SUBCUTANEOUS USE 018 [facility] RE-EVAL,ATHLETIC TRAINING ESTAB PLAN OF CARE REQ:ASSES,CUR FUNC STAT WHEN DOC CHANGE;REV PLAN OF CARE,STAND,ASSESS INSTR &/LINDY ASSESS,FUNC OUTCOME W UPDATE,20 MIN BLLV-DW-HIXT W THE PATIENT &/FAMILY 018 [facility] FOOT, ARCH SUPPORT, REMOVABLE, PREMOLDED, LONGITUDINAL, EACH 018 [facility] INFLUENZA VIRUS VACCINE, QUADRIVALENT (CCIIV4), DERIVED FROM CELL CULTURES, SUBUNIT, PRESERVATIVE AND ANTIBIOTIC FREE, 0.5 ML DOSAGE, FOR INTRAMUSCULAR USE [facility] FITTING OF SPECTACLES, EXCEPT FOR APHAKIA; MONOFOCAL 018 [facility] EAR MOLD/INSERT, NOT DISPOSABLE, ANY TYPE 018 [facility] PSYCHIATRIC DIAGNOSTIC EVALUATION 021 DoD PSYCHIATRIC DIAGNOSTIC EVALUATION 021 DoD TELE ASSESS & MGT SRV PROV QUAL NONPHYS HLTH CARE PRO TO EST PAT,PARENT,GUARD NOT ORIG REL ASSESS & MGT SRV PROV W/IN PREV 7 DAYS NOR LEAD ASSESS & MGT SRV/PX W/IN NXT 24 HR/SOON APT;5-10 MIN MED DIS 021 [facility] AUDIOMETRIC TESTING OF GROUPS 019 [facility] IMMUNIZATION ADMINISTRATION (INCLUDES PERCUTANEOUS, INTRADERMAL, SUBCUTANEOUS, OR INTRAMUSCULAR INJECTIONS); 1 VACCINE (SINGLE OR COMBINATION VACCINE/TOXOID) [facility] Audiometry Group Testing Audiometry Group Testing 57386 MANUEL BASURTO [facility] Venipuncture Venipuncture 16300 YESSENIA LEE [facility] RBC G6PD Screening RBC G6PD Screening 59994 02/02 YESSENIA LEE [facility] Td Vaccine Seven Years Of Age And Above Preservative Free Td Vaccine Seven Years Of Age And Above Preservative Free 28099 YESSENIA LEE [facility] Immunization Administration Each Additional Vaccine Immunization Administration Each Additional Vaccine 02806 YESSENIA LEE [facility] Immunization Administration One Vaccine Immunization Administration One Vaccine 19578 YESSENIA LEE [facility] Preventive Med Standardized Depre ion Screening: Negative For Symptoms Preventive Med Standardized Depression Screening: Negative For Symptoms [id number] YESSENIA LEE During a oric-sj-ycpn encounter, I personally reviewed the responses given on the PHQ8 or the SAT by the individual RICHARD [employer] which were recorded by the individual on the [facility] website or the required hardcopy SAT. [facility] Non-Physician Phone Call To Patient/Provider Brief (5-10min) Non-Physician Phone Call To Patient/Provider Brief (5-10min) [phone] SARA MACK [facility] Psychologic Testing And Report Administered By Computer Psychologic Testing And Report Administered By Computer 59959 018 KEVIN CATES [facility] Non-Physician Phone Call To Patient/Provider Brief (5-10min) Non-Physician Phone Call To Patient/Provider Brief (5-10min) 27808 018 SARA MACK [facility] Vaccines Viral Varicella (Active) Vaccines Viral Varicella (Active) 48015 018 MESHA GOMEZ [facility] Immunization Administration One Vaccine Immunization Administration One Vaccine 73688 018 MESHA GOMEZ [facility] Immunization Administration Each Additional Vaccine Immunization Administration Each Additional Vaccine 71205 018 MESHA GOMEZ [facility] Athletic Training Re-evaluation Athletic Training Re-evaluation 63396 018 CIARA KEMP [facility] Exercises A isted Exercises For ROM Exercises Assisted Exercises For ROM 18344 CIARA KEMP [facility] Foot, arch support, removable, premolded, longitudinal, each CIARA KEMP [facility] Physical Therapy Education Orthotics Training Physical Therapy Education Orthotics Training 13896 VIRIDIANACIARA [facility] Vaccines Viral Varicella (Active) Vaccines Viral Varicella (Active) 38203 018 [facility] Immunization Admin Intranasal / Oral Each Additional Vaccine Immunization Admin Intranasal / Oral Each Additional Vaccine 26489 018 [facility] Vaccines Adenovirus Type 4 Live, For Oral Use Vaccines Adenovirus Type 4 Live, For Oral Use 16641 018 [facility] Vaccines Adenovirus Type 7 Live, For Oral Use Vaccines Adenovirus Type 7 Live, For Oral Use 89184 018 [facility] Immunization Administration Each Additional Vaccine Immunization Administration Each Additional Vaccine 08440 018 [facility] Vaccines Viral Polio, Inactivated (Salk) Vaccines Viral Polio, Inactivated (Salk) 28806 018 [facility] Tdap Vaccine Tdap Vaccine 11532 018 [facility] Immunization Administration One Vaccine Immunization Administration One Vaccine 66448 018 [facility] Determination Of Refractive State Determination Of Refractive State 89378 018 VLAD CHEATHAM [facility] Spectacles Services Fitting Monofocals (Not For Aphakia) Spectacles Services Fitting Monofocals (Not For Aphakia) 12507 018 VLAD CHEATHAM Ophthalmological New Patient Start Intermediate Level Care Ophthalmological New Patient Start Intermediate Level Care 14761 018 VLAD CHEATHAM [facility] Non-Physician Phone Call To Patient/Provider Brief (5-10min) Non-Physician Phone Call To Patient/Provider Brief (5-10min) 25364 REY MAN [facility] Psychiatric Evaluation Psychiatric Evaluation 20353 ALYCIA MCGUIRE [facility] Psychiatric Therapy Preparation of Psychiatric Status Report Psychiatric Therapy Preparation of Psychiatric Status Report 28011 ALYCIA MCGUIRE [facility] Social History Combined list of available smoking, tobacco, and other social history from Department of Defense and Veterans Affairs facilities. Social History Type Response Date Comment Sourc e This section is an empty social history section. DoD
--- OUTSIDE RECORDS SUMMARY | 2025-01-15 17:35 | XMS_ITS | Data Portability ---
Author Organization [facility] [employer] [place] - Home/Virtual/Phone Address [address] [place] [address] Assessment No assessment recorded. Plan of Treatment [...] By Organization Details Last Modified Time 01/15/2025 [id number] Medication Reconciliation Performed, concerns found and addressed during this visit Medication list updated in this EHR. Billing Guidance - Enter the correct codes on the billing tab: 31843 = RN Visits Also add: [id number] - [...] SNOMED-CT Code Diagnosis ICD10 Code Diagnosis Note [id number] Zulma Dominguez RN [place] - Home/[facility] ual/Phone [address] [place] [address] 01/15/2025 11:56:50 01/15/2025 12:34:51 Medication review due [id number] Z76.89 Long-term drug therapy [id number] Z79.899 Health Concerns Section Related Observation LastModified by Organization Detai ls LastModified Time None Recorded Concern Status LastModified by Organization Details LastModified Time None Recorded Advance Directives Directive None Recorded Payers Insurance Date Sequence Insurance Name Policy Number Policy Russell Covered Member ID Russell Member ID Guarantor Name 01/15/2025 1 [facility] ON OR AFTER 01/01/21 (MEDICAID REPLACEMENT - HMO) Nguyen Saleh [id number] 1 Nguyen Saleh Notes Date Note Type [...] regarding medications. Member's PCP: Zulma Dominguez RN [address] [place] [address], [phone], [facility] [employer], [facility] 01/15/2025 12:34:44 OBGyn Episode No OBEpisode recorded.
[2025-01-15 17:48] LABS: Alanine Aminotransferase 18 U/L (6-35); Albumin Level 4.1 g/dL (3.5-5.1); Alkaline Phosphatase 60 U/L (38-126); Anion Gap 10 mmol/L (4-12); Aspartate Amino Transferase 32 U/L (14-36); Band Neutrophils Percent 0 % (0-6); Bilirubin,Total 0.8 mg/dL (0.2-1.3); Blood Urea Nitrogen 5 mg/dL (7-17); Calcium 9.3 mg/dL (8.4-10.2); Carbon Dioxide 21 mmol/L (22-30); Chloride 103 mmol/L (98-107); Estimated Glomerular Filt Rate > 60; Glucose 92 mg/dL (65-110); Ovalocytes 1+; Potassium 3.7 mmol/L (3.4-5.0); Schistocytes None Seen; Sodium 134 mmol/L (137-145); Total Protein 7.7 g/dL (6.3-8.2)
--- NOTE | 2025-01-15 18:02 | ED_ITS ---
HPI - Alcohol General Chief Complaint: Alcohol Stated Complaint: ETOH withdrawal, extreme rib pain Time Seen by Provider: 01/15/25 16:49 History of Present Illness HPI narrative: Patient presenting here with concern for alcohol withdrawal, she says that sometimes she feels like both of her hands clenched up and she has tingling in both hands, face, feet, and she feels extremely anxious. She does started the vitreal shot and is worried about alcohol withdrawal, she is currently on a Librium taper. Related Data Home Medications ?Medication ?Instructions ?Recorded ?Confirmed ?Last Taken ?Type naltrexone microspheres 380 mg 380 mg IM MONTHLY 01/14/25 01/14/25 12/11/24 History intramuscular suspension,extended release (Vivitrol) Allergies Allergy/AdvReac Type Severity Reaction Status Date / Time No Known Allergies Allergy Verified 08/04/24 06:58 Review of Systems 2 Review of Systems: All systems reviewed & are unremarkable except as noted in HPI and below PMFSH Past Medical History Medical History Alcohol abuse PTSD (post-traumatic stress disorder) Alcoholism Social History Social History Smoking status: Former smoker Tobacco type: e-cigarettes/vaping Alcohol intake: current Drinks per week: 30 Substance use: current Substance use type: marijuana Do You Feel Safe in your Home?: Yes Lack of Transportation: No Lack of Food: Never True Current Housing: I Have Housing Concerned About Future Housing: No Difficulty Paying Gas/Electric Bills: No Difficulty Paying for Meds: No Currently Unemployed: No Education: High School Diploma/GED Difficulty w/ Childcare or Family Care: No Living arrangements: alone Occupation/Education: unemployed Sexual Orientation (if Verbalized by the Patient): Lesbian, Gordon, or Homosexual Spiritual care concerns: No Exam 2 Narrative: EXAMINATION OF ORGAN SYSTEMS/BODY AREAS: Constitutional: Vital signs per nursing GENERAL:[No acute distress, non-toxic appearing.] HEAD: Normal with no signs of head trauma. EYES: EOMI, conjunctiva normal ENT: Hearing grossly intact LUNGS: Nonlabored breathing. HEART: [Regular rate and rhythm] ABD: [Soft], [nontender to palpation] EXT: Normal range of motion SKIN: [No rashes or lesions.] NEURO: [Alert and oriented x 3. No gross focal sensory or strength deficits.] No tremors. Clear speech. Steady gait. PSYCH: Normal affect Course Vital Signs Vital signs: Vital Signs Temperature 97.8 F 01/15/25 16:36 Pulse Rate 81 01/15/25 16:36 Respiratory Rate 18 01/15/25 16:36 Blood Pressure 116/102 H 01/15/25 16:36 Pulse Oximetry 100 01/15/25 16:36 Oxygen Delivery Room Air 01/15/25 16:36 Temperature 97.8 F 01/15/25 16:36 Pulse Rate 81 01/15/25 16:36 Respiratory Rate 18 01/15/25 16:36 Blood Pressure 116/102 H 01/15/25 16:36 Pulse Oximetry 100 01/15/25 16:36 Oxygen Delivery Room Air 01/15/25 16:36 MDM - Alcohol MDM Narrative Medical decision making narrative: Patient with history of alcohol use disorder presents here with signs and symptoms consistent with a panic attack. She is very scared that he might be a stroke, had a discussion with the patient that given distribution of symptoms it would be very unlikely for this to be neurologic. She then asked if I can check her lipase/pancreas. Her labs are within acceptable limits. She feels comfortable going home at this time. Her CIWA score currently is 0. She has a bottle of Librium with her to help her with her alcohol withdrawal. I have let her know she can return to the ER for any further issues. Lab Data 01/15/25 17:23 01/15/25 17:23 Labs: Lab Results 01/15/25 Range/Units 17:23 WBC 6.6 (4.5-10.0) K/mm3 RBC 4.48 (4.2-5.4) M/mm3 Hgb 10.2 L (12.0-15.0) g/dL Hct 32.2 L (37.0-47.0) % MCV 71.9 L (80-100) fl MCH 22.8 L (26-34) pg MCHC 31.7 L (32-36) g/dl RDW 14.9 H (11.5-14.5) % Plt Count 247 (150-375) k/mm3 MPV 10.6 H (7.4-10.4) fl Immature Gran % (Auto) 0.2 (0-0.5) % Neut % (Auto) 52.9 (45.5-73.1) % Lymph % (Auto) 32.4 (18.3-44.2) % [place] % (Auto) 6.4 (2.6-8.5) % Eos % (Auto) 7.6 H (0-4.4) % Baso % (Auto) 0.5 (0.2-1.2) % Lymph # (Auto) 2.14 (0.9-3.2) K/mm3 [place] # (Auto) 0.4 (0.1-0.6) K/mm3 Eos # (Auto) 0.5 H (0-0.3) K/mm3 Baso # (Auto) 0.0 (0.0-0.1) K/mm3 Abs Immat Gran (auto) 0.01 (0.00-0.031) K/mm3 Absolute Neuts (auto) 3.5 (1.3-6.7) K/mm3 Absolute Nucleated RBC 0.000 (0.0-0.012) K/mm3 Band Neutrophils % 0 (0-6) % Nucleated RBC % 0.0 (0.0-0.2) % Platelet Estimate Adequate (Adequate) Ovalocytes 1+ Schistocytes None seen Sodium 134 L (137-145) mmol/L Potassium 3.7 (3.4-5.0) mmol/L Chloride 103 (98-107) mmol/L Carbon Dioxide 21 L (22-30) mmol/L Anion Gap 10 (4-12) mmol/L BUN 5 L (7-17) mg/dL Creatinine 0.66 L (0.7-1.0) mg/dL Estim Creat Clear Calc Not Reportable Estimated GFR > 60 (59 - ) Glucose 92 (65-110) mg/dL Calcium 9.3 (8.4-10.2) mg/dL Total Bilirubin 0.8 (0.2-1.3) mg/dL AST 32 (14-36) U/L ALT 18 (6-35) U/L Alkaline Phosphatase 60 (38-126) U/L Total Protein 7.7 (6.3-8.2) g/dL Albumin 4.1 (3.5-5.1) g/dL Lipase Pending Ethyl Alcohol < 10 (<10) mg/dL Discharge Plan Discharge Clinical Impression: Panic attack, Alcohol use disorder Patient Disposition: Home Condition: Stable Instructions: Alcohol Dependence (ED) Additional Instructions: Please continue taking your medications as directed, you can always return to the emergency room for any further issues. Patient Language: Swedish Prescriptions: No Action folic acid 1 mg tablet 1 mg PO DAILY Qty: 30 0RF chlordiazepoxide HCl 25 mg capsule 25 mg PO BID PRN (Reason: alcohol withdrawal) Qty: 30 0RF pantoprazole 40 mg tablet,delayed release (DR/EC) 40 mg PO HS Qty: 30 0RF Vivitrol 380 mg suspension,extended rel recon 380 mg IM MONTHLY Follow-up/Referrals: Johnny,MD Morgan [Primary Care Provider] -
[2025-01-15 18:05] LABS: Lipase 24 U/L (23-300)
== END 2025-01-15 18:11 | disposition home or self-care (01) ==
PROVIDERS: Emergency Provider Emergency Medicine; PCP Hospitalist
DX: F41.9 Anxiety disorder, unspecified (principal); F10.90 Alcohol use, unspecified, uncomplicated; Y90.0 Blood alcohol level of less than 20 mg/100 ml
CPT/HCPCS: 36415; 80053; 82077; 83690; 85025; 99283

== ENCOUNTER 2025-02-16 15:36 | Observation (INO) | payer OTHER, SELFPAY ==
[2025-02-16] VITALS (11 sets, daily range): BP systolic 92–112; BP diastolic 51–85; PULSE 68–110; RESP 12–22; TEMP 36.7–36.9; O2SAT 99–100; BMI 20.9
--- NOTE | ~2025-02-16 | XR_ITS ---
EXAMINATION: XR chest 1V portable Exam Date/Time: 02/16/2025 16:25 CDT HISTORY: Vomiting, hypertension Comparison: 06/06/2024. RESULT: Lines, tubes, and devices: None. Lungs and pleura: Clear. Cardiomediastinal silhouette: Stable. Other: No acute osseous or upper abdominal finding. IMPRESSION: No acute cardiopulmonary process. Reviewed, dictated and finalized at location K.
--- NOTE | 2025-02-16 15:43 | ED_ITS ---
HPI - General Adult General Chief complaint: Nausea/Vomiting/Diarrhea Stated complaint: nausea d/t etoh/thc Time Seen by Provider: 02/16/25 15:43 Source: patient and EMS Mode of arrival: EMS History of Present Illness HPI narrative: 29 years old female came to the ED by ambulance complaining of feeling weird, feeling of with lightheadedness and vomiting started within 30 minutes prior to arrival to the ED. she denies any fever or chills or abdominal pain or chest pain or shortness of breath. History of alcoholism on Vivitrol, patient is telling me that she drinks in between, gastritis, vaping, marijuana use daily. Patient is telling me last time she ate 3 days ago because she been using alcohol and marijuana constantly. He last alcohol intake prior to arrival, patient lives alone, Related Data Home Medications ?Medication ?Instructions ?Recorded ?Confirmed ?Last Taken ?Type naltrexone microspheres 380 mg 380 mg IM MONTHLY 01/14/25 01/14/25 12/11/24 History intramuscular suspension,extended release (Vivitrol) Allergies Allergy/AdvReac Type Severity Reaction Status Date / Time No Known Allergies Allergy Verified 02/16/25 15:43 Review of Systems 2 Review of Systems: All systems reviewed & are unremarkable except as noted in HPI and below PMFSH Past Medical History Medical History Alcohol abuse PTSD (post-traumatic stress disorder) Alcoholism Social History Social History Smoking status: Former smoker Tobacco type: e-cigarettes/vaping Alcohol intake: current Drinks per week: 30 Substance use: current Substance use type: marijuana Do You Feel Safe in your Home?: Yes Lack of Transportation: No Lack of Food: Never True Current Housing: I Have Housing Concerned About Future Housing: No Difficulty Paying Gas/Electric Bills: No Difficulty Paying for Meds: No Currently Unemployed: No Education: High School Diploma/GED Difficulty w/ Childcare or Family Care: No Living arrangements: alone Occupation/Education: unemployed Sexual Orientation (if Verbalized by the Patient): Lesbian, Gordon, or Homosexual Spiritual care concerns: No Exam 2 Narrative: General appearance: Well-developed, well-nourished Skin: Normal color Head: Normocephalic, nontraumatic Eyes: Clear conjunctiva ENT: Oropharynx normal, ears normal, nose normal Neck: Supple, nontender Chest and respiratory: Airway patent, no respiratory distress, no accessory muscle use Heart: Regular rate/rhythm Abdomen: Soft, nontender, no organomegaly, quiet bowel sounds Musculoskeletal: Normal range of motion, nontender back Neurologic: Alert and oriented ?3, FRONT OFFICE DEVELOPER is normal as tested, no gross motor deficit Course Vital Signs Vital signs: Vital Signs Temperature 36.7 C 02/16/25 15:36 Pulse Rate 88 02/16/25 15:36 Respiratory Rate 12 02/16/25 15:36 Blood Pressure 93/74 L 02/16/25 15:36 Pulse Oximetry 100 02/16/25 15:36 Oxygen Delivery Room Air 02/16/25 15:36 Temperature 36.7 C 02/16/25 15:36 Pulse Rate 92 02/16/25 16:57 Respiratory Rate 18 02/16/25 16:57 Blood Pressure 93/59 L 02/16/25 16:57 Pulse Oximetry 99 02/16/25 16:57 Oxygen Delivery Room Air 02/16/25 15:36 Medical Decision Making MDM Narrative Medical decision making narrative: Patient came to the ED feeling of and weird Vital signs showing blood pressure 93/74 otherwise within normal limit Blood glucose on arrival 48 Physical examination showing restless patient, with vomiting, holding vomiting bag in hands unable to talk Differential diagnosis hypoglycemia secondary to poor p.o. intake, electrolyte imbalance, dehydration, alcoholism, drugs abuse, Blood workup today includes CBC, CMP, magnesium level, PT, alcohol level showed glucose 52, otherwise within normal limit Urinalysis showed 3+ ketones, 2+ blood, Urine drug screen positive for cannabis Chest x-ray showed no acute abnormalities Differential Diagnosis Differential Diagnosis: As above Vital Signs Vital Signs: Vital Signs Temperature 36.7 C 02/16/25 15:36 Pulse Rate 88 02/16/25 15:36 Respiratory Rate 12 02/16/25 15:36 Blood Pressure 93/74 L 02/16/25 15:36 Pulse Oximetry 100 02/16/25 15:36 Oxygen Delivery Room Air 02/16/25 15:36 Temperature 36.7 C 02/16/25 15:36 Pulse Rate 92 02/16/25 16:57 Respiratory Rate 18 02/16/25 16:57 Blood Pressure 93/59 L 02/16/25 16:57 Pulse Oximetry 99 02/16/25 16:57 Oxygen Delivery Room Air 02/16/25 15:36 Lab Data 02/16/25 16:03 02/16/25 16:03 Labs: Lab Results 02/16/25 02/16/25 Range/Units 15:41 16:03 WBC 7.8 (4.5-10.0) K/mm3 RBC 5.03 (4.2-5.4) M/mm3 Hgb 11.5 L (12.0-15.0) g/dL Hct 37.3 (37.0-47.0) % MCV 74.2 L (80-100) fl MCH 22.9 L (26-34) pg MCHC 30.8 L (32-36) g/dl RDW 15.5 H (11.5-14.5) % Plt Count 283 (150-375) k/mm3 MPV 11.8 H (7.4-10.4) fl Immature Gran % (Auto) 0.3 (0-0.5) % Neut % (Auto) 79.5 H (45.5-73.1) % Lymph % (Auto) 16.0 L (18.3-44.2) % [place] % (Auto) 3.5 (2.6-8.5) % Eos % (Auto) 0.1 (0-4.4) % Baso % (Auto) 0.6 (0.2-1.2) % Lymph # (Auto) 1.25 (0.9-3.2) K/mm3 [place] # (Auto) 0.3 (0.1-0.6) K/mm3 Eos # (Auto) 0.0 (0-0.3) K/mm3 Baso # (Auto) 0.1 (0.0-0.1) K/mm3 Abs Immat Gran (auto) 0.02 (0.00-0.031) K/mm3 Absolute Neuts (auto) 6.2 (1.3-6.7) K/mm3 Absolute Nucleated RBC 0.000 (0.0-0.012) K/mm3 Band Neutrophils % 0 (0-6) % Nucleated RBC % 0.0 (0.0-0.2) % Platelet Estimate Adequate (Adequate) Hypochromasia 1+ Anisocytosis 2+ Microcytosis 2+ (NORMAL) Schistocytes None seen PT 14.2 (11.1-14.7) Seconds INR 1.1 Sodium 138 (137-145) mmol/L Potassium 3.6 (3.4-5.0) mmol/L Chloride 108 H (98-107) mmol/L Carbon Dioxide < 5 L (22-30) mmol/L Anion Gap (4-12) mmol/L BUN 9 (7-17) mg/dL Creatinine 0.76 (0.7-1.0) mg/dL Estim Creat Clear Calc 95 ml/min Estimated GFR > 60 (59 - ) Glucose 52 L* (65-110) mg/dL POC Capillary Glucose 46 L* (65-105) mg/dl Calcium 9.8 (8.4-10.2) mg/dL Total Bilirubin 0.5 (0.2-1.3) mg/dL AST 38 H (14-36) U/L ALT 24 (6-35) U/L Alkaline Phosphatase 76 (38-126) U/L Total Creatine Kinase 80 (30-135) U/L Total Protein 8.9 H (6.3-8.2) g/dL Albumin 5.0 (3.5-5.1) g/dL Lipase 49 (23-300) U/L Urine Color Yellow (Yellow) Urine Appearance Clear (Clear) Urine pH 5.0 (5.0-9.0) Ur Specific [place] 1.020 (1.001-1.035) Urine Protein Trace (Negative) mg/dL Urine Glucose (UA) Negative (Negative) mg/dL Urine Ketones 3+ H (Negative) mg/dL Ur Blood (Man) 2+ H (Negative) Urine Nitrate Negative (Negative) Urine Bilirubin Negative (Negative) Urine Urobilinogen 0.2 (<2.0) mg/dL Leukocyte Esterase Rfl Negative (Negative) CARISSA/UL Urine RBC 21-50 H (0-2) /hpf Urine WBC 0-5 (0-3) /hpf Ur Squamous Epith Cells None seen (Few) /hpf Urine Bacteria None seen /hpf Urine Casts 0-2 Urine Opiates Screen Negative (Negative) Urine Methadone Screen Negative (Negative) Ur Barbiturates Screen Negative (Negative) Ur Phencyclidine Scrn Negative (Negative) Ur Amphetamine Screen Negative (Negative) U Benzodiazepines Scrn Negative (Negative) Urine Cocaine Screen Negative (Negative) U Cannabinoids Screen Positive A (Negative) Ethyl Alcohol 45 (<10) mg/dL Imaging Data Radiologist's impression: EKG showed normal sinus rhythm at 95 beats per minute, nonspecific T-wave abnormality, compared to EKG on June 06, 2024 T-wave abnormality now present ECG Data EKG #1: Attestation: I personally reviewed and interpreted this ECG as follows: ECG completion date: 02/16/25 Interpretation: Normal sinus rhythm at 95 beats per minute, nonspecific T-wave abnormality, compared to EKG on June 06, 2024 T-wave abnormality now present, sinus arrhythmia no longer present Critical Care Time Critical Care Time Critical Care Time: Yes Total Critical Care Time: 30 Discharge Plan Discharge Clinical Impression: Hypoglycemia, Vomiting, Cannabis abuse, Alcoholic Patient Disposition: Still a Patient Condition: Stable Patient Language: Portuguese Prescriptions: No Action folic acid 1 mg tablet 1 mg PO DAILY Qty: 30 0RF chlordiazepoxide HCl 25 mg capsule 25 mg PO BID PRN (Reason: alcohol withdrawal) Qty: 30 0RF pantoprazole 40 mg tablet,delayed release (DR/EC) 40 mg PO HS Qty: 30 0RF Vivitrol 380 mg suspension,extended rel recon 380 mg IM MONTHLY Follow-up/Referrals: Johnny,MD Morgan [Primary Care Provider] -
[2025-02-16] MEDS: DEXTROSE 50% 25 GM/50 ML SYRINGE IV PUSH ×2 (15:47)
--- NOTE | 2025-02-16 15:54 | ECG_ITS ---
Test Date: 2025-02-16 16:05:13 Measurements Intervals [place] Rate: 95 P: 71 TN: 189 QRS: 72 QRSD: 82 T: 54 QT: 350 QTc: 442 Interpretive Statements SINUS RHYTHM NONSPECIFIC T-WAVE ABNORMALITY- ANTERIOR LEADS BORDERLINE ECG Compared to ECG 06/06/2024 22:48:22 NO SIGNIFICANT CHANGE Electronically Signed On 02-16-2025 19:44:56 CDT by Leonidas Flaherty D.O.
--- NOTE | 2025-02-16 15:55 | PC.NURSE ---
Patient states she doesn't take her medications for alcohol addiction because she just doesn't like it some days she wants to drink and so doesn't take the medication. patient also states that she was supposed to start detox tomorrow- but didn't want to do it alone
[2025-02-16] MEDS: SODIUM CHLORIDE 0.9% IV 2,000 ML 999 ML IV CONT (16:00)
[2025-02-16] MEDS: ONDANSETRON INJ 4 MG/2 ML VIAL IV PUSH (16:01)
[2025-02-16] MEDS: METOCLOPRAMIDE HCL INJ 10 MG/2 ML VIAL IV PUSH (16:01)
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
--- OUTSIDE RECORDS SUMMARY | 2025-02-16 16:18 | XMS_ITS | Encounter Summary ---
Author Organization [facility] Healthcare Address [address] [place] [address] Care Team Providers Care Wind Site Manager Name Role Phone No, Physician Primary Care Provider [phone] Morgan Turner MD Primary Care Provider [phone] Ashish Morrow MD Unavailable Silvia Zhang MA Unavailable Unavailable Loida Aburto LCSW Unavailable [phone] Encounter Details Date Type Department Care Team (Late st Contact Info) Description 01/16/2024 [facility] Post Discharge Follow up phone call [address] [address] Dhara Laughlin, RN Social History Tobacco Use Types Packs/Day Years Used Date Smoking Tobacco: Every Day Vaping Alcohol Use Standard Drinks/Week Comments Yes 0 (1 standard drink = 0.6 oz pur e alcohol) Pint of alcohol a day [facility] Utilities Answer Date Recorded In the past 12 months has [employer] electric, gas, oil, or water company threatened to shut off services in your home? Yes 01/12/2024 Social Connection and Isolation Panel Answer Date Recorded In a typical week, how many times do you talk on the phone with family, friends, or neighbors? Three times a week 01/12/2024 How often do you get togethe r with friends or relatives? Three times a week 01/12/2024 How often do you attend [facility] or adventist services? Never 01/12/2024 Do you belong to any clubs o r organizations such as episcopal groups, unions, fraternal or athletic groups, or [...] living in a fdc (including now)? 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 Gender Identity Not on file Sexual [...] Description 03/05/2025 1:00 PM CDT Hospital Encounter [address] [address] Ashish Morrow MD [address] [place] [address] [place] [address] 03/05/2025 1:00 PM CDT - 03/05/2025 1:30 PM CDT Surgery [address] [address] Ashish Morrow MD [address] [place] [address] DR [address] [place], [place] [address], [place] [address] ESOPHAGOGASTRODUODENOSCOPY Scheduled Procedures Name Priority Associated Diagnoses Date/Ti mi ESOPHAGOGASTRODUODENOSCOPY Erosive esophagitis 03/05/2025 1:00 PM CDT documented as of this encounter Visit Diagnoses Not on filedocumented in this encounter Care Teams Wind Site Manager Relationship Specialty Start Date End Date No, Physician PCP - General 01/11/24 01/17/24 Morgan Turner MD [address] [place] [address] PCP - General Family Medicine 01/18/24 Ashish Morrow MD [address] [place] [address] [place] [address] Consulting Physician Gastroenterology 06/09/24 Silvia Zhang, MA [address] [place] [address] ACO Care Fuel Cell Technician 07/24/24 07/24/24 Loida Aburto, TRAVEL ACCOMMODATIONS RATER [address] [place] [address] Inside Sales Specialist 07/25/24 09/06/24 documented as of this encounter
--- OUTSIDE RECORDS SUMMARY | 2025-02-16 16:18 | XMS_ITS | Clinical Summary ---
Author Organization [facility] Address [address] [place] [address] Care Team Providers Care Electronics Recycler Name Role Phone Unavailable Primary Care Provider Unavailabl e Source Comments [facility],non-owned Affiliates and Associated Physician Practices is amultiple site organization consisting of ambulatory clinics and hospital sitesin [place], [place], [place] and [place]. This disclosure is being madepursuant to the Care Everywhere program and may not contain all information available regarding this patient. Last updated 18.[facility] Allergies No known active allergies Medications * [...] Date Smoking Tobacco: Every Day Cigarettes 1 18.4 Started: 10/04/2006 Smokeless Tobacco: Never Tobacco Cessation:Ready [...] housing, medical care, and heating? Hard 10/29/2022 [facility] [place] of Occupat ional Health - Occupational Stress [...] place to sleep or slept in a senior care (including now)? No 10/29/2022 Comments Unknown Sex and Gender Information Value Date Recorded Sex Assigned at Not on file Legal Sex Female 3:07 PM POKER IN Gender Identity Not on file Sexual Orientation [...]
--- OUTSIDE RECORDS SUMMARY | 2025-02-16 16:18 | XMS_ITS | Clinical Summary ---
Author Organization [facility] Address [address] [place] [id number] Care Team Providers Care Colorectal Surgeon Name Role Phone None, Provider MD Primary [...] complete this topic Insurance MEDICAID Care Teams Colorectal Surgeon Relationship Specialty Start Date End Date None, Provider, PCP - General 03/20/18
--- OUTSIDE RECORDS SUMMARY | 2025-02-16 16:18 | XMS_ITS | Clinical Summary ---
Author Organization [facility] Address [address] [address] Phone Care Team Providers Care Mammography Technician Name Role Phone Provider, None Primary Care [...] 0.6 oz pur e alcohol) pint/daily [facility] Utilities Answer Date Recorded In the [...] place to sleep or slept in a penitentiary (including now)? Patient declined 12/02/2023 Comments Unknown [...] measures to stabilize the patient. Care Teams Mammography Technician Relationship Specialty Start Date End Date Provider, None [place] PCP - General 12/02/23
[2025-02-16 16:19] LABS: Hematocrit 37.3 % (37.0-47.0); Hemoglobin 11.5 g/dL (12.0-15.0); Immature Granulocyte Percent A 0.3 % (0-0.5); Lymphocytes Absolute Auto 1.25 K/mm3 (0.9-3.2); Mean Corpuscular HGB Conc 30.8 g/dl (32-36); Mean Corpuscular Hemoglobin 22.9 pg (26-34); Mean Corpuscular Volume 74.2 fl (80-100); Nucleated Red Blood Cells Absolute Auto 0.000 K/mm3 (0.0-0.012); Nucleated Red Blood Cells Perc 0.0 % (0.0-0.2); Platelet Count Result 283 k/mm3 (150-375); Red Blood Count 5.03 M/mm3 (4.2-5.4); White Blood Count 7.8 K/mm3 (4.5-10.0)
--- OUTSIDE RECORDS SUMMARY | 2025-02-16 16:19 | XMS_ITS | Continuity of Care Document ---
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 It does not include entries that were removed or entered in error. Problem Status Onset Date Problem Type Date of Resolution Comments Source Alcohol dependence, uncomplicated Active 8 Condition DoD Sprain of other ligament of right ankle Active 8 Condition [facility] Abnormal urine Active Condition [facility] Alcohol dependence Active Condition [facility] Chronic post-traumatic stress disorder Active Condition [facility] Housing instability Active Condition [facility] Mild bipolar disorder Active Condition [facility] Nicotine dependence Active Condition [facility] Posttraumatic stress disorder Active Condition [facility] Unsheltered homelessness Active Condition [facility] Diagnosis: ICD-10-CM F43.10 Post-traumatic stress disorder, unspecified Active Diagnosis [facility] Diagnosis: ICD-10-CM F10.220 Alcohol dependence with intoxication, uncomplicated Active Diagnosis [facility] Diagnosis: ICD-10-CM F10.20 Alcohol dependence, uncomplicated Active Diagnosis [facility] Diagnosis: ICD-10-CM Z59.89 Other problems related to housing and economic circumstances Active Diagnosis [facility] Diagnosis: ICD-10-CM Z78.9 Other specified health status Active Diagnosis [facility] Diagnosis: ICD-10-CM F43.12 Post-traumatic stress disorder, chronic Active Diagnosis [facility] Diagnosis: ICD-10-CM F10.239 Alcohol dependence with withdrawal, unspecified Active Diagnosis [facility] Diagnosis: ICD-10-CM F31.81 Bipolar II disorder Active Diagnosis [facility] Admit Reason: ALCOHOL DETOXIFICATION Active Diagnosis [facility] Diagnosis: ICD-10-CM Z71.89 Other specified counseling Active Diagnosis [facility] Diagnosis: ICD-10-CM Z59.9 Problem related to housing and economic circumstances, unsp Active Diagnosis [facility] Diagnosis: ICD-10-CM Z59.02 Unsheltered homelessness Active Diagnosis [facility] Diagnosis: ICD-10-CM F31.89 Other bipolar disorder Active Diagnosis [facility] Medications Combined list of outpatient medications from [...] FOR ASSISTAN CE WITH DEPENDEN CY 01/23/2024 [id number] 4 THA CHASE S 2023 5 [facility] CHLORDIAZEP OXIDE HCL 25MG CAP TAKE ONE CAPSULE BY MOUTH TWICE A DAY FOR 2 DAYS, THEN TAKE ONE CAPSULE ONCE A DAY FOR 1 DAY FOR ASSISTAN CE WITH DEPENDEN CY ORAL 01/23/2024 [id number] 4 BRIGIDO CHASE 2023 5 [facility] HYDROXYZINE HCL 50MG TAB TAKE ONE TABLET BY MOUTH THREE TIMES A DAY NEEDED FOR ANXIETY *MAY CAUSE DROWSINE SS* ORAL ACTIVE 06/30/2025 [id number] Dick RAO 2024 270 [facility] HYDROXYZINE HCL 50MG TAB TAKE ONE TABLET BY MOUTH THREE TIMES A DAY NEEDED FOR ANXIETY *MAY CAUSE DROWSINE SS* ORAL DISCONT INUED 02/03/2025 [id number] 4 Dick RAO 2023 270 [facility] NALTREXONE (EQV-REVIA) 50MG TAB TAKE ONE TABLET BY MOUTH ONCE A DAY FOR ASSISTAN CE WITH DEPENDEN CY ORAL 01/23/2024 [id number] 4 BRIGIDO CHASEA S 2023 30 [facility] Naltrexone Hydrochlori de (ReVia Eq.) Tablet 50 mg Oral TAKE ONE TABLET BY MOUTH ONCE A DAY FOR ASSISTAN CE WITH DEPENDEN CY 01/23/2024 [id number] THA CHASE S 2023 30 [facility] Quetiapine (Seroquel Starter Pack) Tablet 25mg Oral TAKE ONE TABLET BY MOUTH AT BEDTIME 12/14/2024 [id number] NITISH RAO E 2023 30 [facility] QUETIAPINE FUMARATE 25MG TAB TAKE ONE TABLET BY MOUTH AT BEDTIME ORAL DISCONT INUED BY PROVIDE R 12/14/2024 [id number] 4 Dick RAO E 2023 30 [facility] QUETIAPINE FUMARATE 50MG TAB TAKE ONE TABLET BY MOUTH AT BEDTIME FOR MOOD REGULATI ON ORAL ACTIVE 06/30/2025 [id number] 5 Dick RAO E 2024 90 [facility] QUETIAPINE FUMARATE 50MG TAB TAKE ONE TABLET BY MOUTH AT BEDTIME FOR MOOD REGULATI ON ORAL DISCONT INUED 02/03/2025 [id number] 4 Dick RAO E 2023 90 [facility] THIAMINE 100MG TAB TAKE ONE TABLET BY MOUTH ONCE A DAY FOR 10 DAYS FOR VITAMIN B1 SUPPLEME NTATION ORAL 01/23/2024 [id number] 4 BRIGIDO CHASEA S 2023 10 [facility] Thiamine 100mg, Tablet, Oral TAKE ONE TABLET BY MOUTH ONCE A DAY FOR 10 DAYS FOR VITAMIN B1 SUPPLEME NTATION 01/23/2024 [id number] 4 THA CHASE Pieter 2023 10 [facility] Allergies, Adverse Reactions, Alerts Combined list of allergies from Department of Defense and Veterans Affairs facilities. It does not include entries that were removed or entered in error. Substance Category Reaction Severity Reaction type Status Date Reported Comments Source No Known Allergies Drug allergy (disorder) active 8 [facility] Immunizations Combined list of available immunizations from the Department of Defense and Veterans Affairs facilities. Immunization Series Date Given Administered By Site Reaction Lot Number CVX Code Drug Protozoology Teacher Status Comments Source INFLUENZA, SPLIT VIRUS, TRIVALENT, PF 1 2023 140 complet ed HISTORICA L INFORMATI ON - FROM OTHER [facility], [facility] COVID-19 (MODERNA), MRNA, LNP-S, PF, 100 MCG/0.5ML DOSE OR 50 MCG/0.25ML DOSE 1 2020 207 complet ed HISTORICA L INFORMATI ON - FROM OTHER [facility], [facility] N INFLUENZA, SPLIT VIRUS, QUADRIVALENT, PF 1 2020 150 complet ed HISTORICA L INFORMATI ON - FROM OTHER [facility], [facility] N Influenza, injectable, quadrivalent, preservative free 1 2018 [id number] 150 Seqirus (SEQ) complet ed Influenza , injectabl e, quadrival ent, preservat el free [facility] Influenza, injectable, quadrivalent, preservative free 1 2018 UNK 150 Seqirus (SEQ) comple t ed Influenza , injectabl e, quadrival ent, preservat el free DoD INFLUENZA, SPLIT VIRUS, QUADRIVALENT, PRESERVATIVE 1 2018 158 complet ed HISTORICA L INFORMATI ON - FROM OTHER [facility], [facility] N hepatitis B vaccine, adult dosage 3 2018 [id number] SmithKline (SKB) complet ed hepatitis B vaccine, adult dosage DoD influenza, injectable, quadrivalent, contains preservative 1 2018 [id number] 158 Seqirus (SEQ) complet ed influenza , injectabl e, quadrival ent, contains preservat el DoD varicella virus vaccine 2 2017 [id number] 21 Merck (MSD) complet ed varicella virus vaccine DoD hepatitis B vaccine, adult dosage 2 2017 [id number] 43 Umamiine (SKB) complet ed hepatitis B vaccine, adult dosage DoD measles, mumps and rubella virus vaccine 1 2017 UNK 03 Unknown (UNK) Not Given measles, mumps and rubella virus vaccine DoD poliovirus vaccine, inactivated 1 2017 [id number] 10 Sanofi Pasteur ([facility]) complet ed polioviru s vaccine, inactivat ed DoD varicella virus vaccine 1 2017 [id number] 21 Merck (MSD) complet ed varicella virus vaccine DoD hepatitis B vaccine, adult dosage 1 2017 [id number] 43 Umamiine (SK) complet ed hepatitis B vaccine, adult dosage DoD hepatitis A vaccine, adult dosage 1 2017 UNK 52 Unknown (UNK) Not Given hepatitis A vaccine, adult dosage DoD meningococcal polysaccharid e (groups A, C, Y and W-135) diphtheria toxoid conjugate vaccine (MCV4P) 1 2017 [id number] Sanofi Pasteur ([facility]) complet ed meningoco ccal polysacch aride (groups A, C, Y and W-135) diphtheri a toxoid conjugate vaccine (MCV4P) DoD tetanus toxoid, reduced diphtheria toxoid, and acellular pertu is vaccine, adsorbed 1 [address] [id number] [facility] ([facility]) complet ed tetanus toxoid, reduced diphtheri a toxoid, and acellular pertussis vaccine, adsorbed DoD Adenovirus, type 4 and type 7, live, oral 1 2017 [id number] 143 [facility] ([facility]) complet ed Adenoviru s, type 4 and type 7, live, oral DoD Influenza, injectable, [place]in [place] Canine Kidney, quadrivalent with preservative 1 2017 [id number] Seqirus (SEQ) comple t ed Influenza , injectabl e, Madin [place] Canine Kidney, quadrival ent with preservat el DoD HEP A, PED/ADOL, 2 DOSE 1 2009 83 complet ed HISTORICA L INFORMATI ON - FROM OTHER REGISTRY, [facility] HPV, QUADRIVALENT 2 2009 62 complet ed HISTORICA L INFORMATI ON - [facility]RY[facility] INFLU[facility], LIVE, TRIVALENT, INTRANASAL 1 2009 111 complet ed HISTORICA L INFORMATI ON - FROM OTHER REGISTRY, [facility] N VARICELLA 2 2009 21 complet ed HISTORICA L INFORMATI ON - [facility] HPV, QUADRIVALENT 1 2009 62 complet ed HISTORICA L INFORMATI ON - FROM OTHER REGISTRY, [facility] N MENINGOCOCCAL MPSV4 1 2009 32 complet ed HISTORICA L INFORMATI ON - FROM OTHER [facility]ISTRY, [facility] TDAP 5 2009 115 complet ed HISTORICA L INFORMATI ON - FROM OTHER REGISTRY, [facility] MMR 2 2000 03 complet ed HISTORICA L INFORMATI ON - FROM OTHER [facility]ISTRY, [facility] VARICELLA 1 2000 21 complet ed HISTORICA L INFORMATI ON - FROM OTHER REGISTRY, [facility] DTAP 4 1999 20 complet ed HISTORICA L INFORMATI ON - FROM OTHER REGISTRY, [facility] N HIB, UNSPECIFIED FORMULATION 4 1999 17 complet ed HISTORICA L INFORMATI ON - FROM OTHER REGISTRY, [facility] IPV 4 1999 10 complet ed HISTORICA L INFORMATI ON - FROM OTHER REGISTRY, [facility] MMR 1 1999 03 complet ed HISTORICA L INFORMATI ON - FROM OTHER REGISTRY, [facility] DTP 3 1995 01 complet ed HISTORICA L INFORMATI ON - FROM OTHER REGISTRY, [facility] HEP B, ADOLESCENT OR PEDIATRIC 3 1995 08 complet ed HISTORICA L INFORMATI ON - FROM OTHER REGISTRY, [facility] HIB, UNSPECIFIED FORMULATION 3 1995 17 complet ed HISTORICA L INFORMATI ON - FROM OTHER REGISTRY, [facility] OPV, TRIVALENT 3 1995 02 complet ed HISTORICA L INFORMATI ON - FROM OTHER REGISTRY, [facility] DTP 2 1995 01 complet ed HISTORICA L INFORMATI ON - FROM OTHER REGISTRY, [facility] HIB, UNSPECIFIED FORMULATION 2 1995 17 complet ed HISTORICA L INFORMATI ON - FROM OTHER REGISTRY, [facility] OPV, TRIVALENT 2 1995 02 complet ed HISTORICA L INFORMATI ON - FROM OTHER REGISTRY, [facility] DTP 1 1995 01 complet ed HISTORICA L INFORMATI ON - FROM OTHER REGISTRY, [facility] HEP B, ADOLESCENT OR PEDIATRIC 2 1995 08 complet ed HISTORICA L INFORMATI ON - FROM OTHER REGISTRY, [facility] HIB, UNSPECIFIED FORMULATION 1 1995 17 complet ed HISTORICA L INFORMATI ON - FROM OTHER REGISTRY, [facility] OPV, TRIVALENT 1 1995 02 complet ed HISTORICA L INFORMATI ON - FROM OTHER REGISTRY, [facility] N HEP B, ADOLESCENT OR PEDIATRIC 1 1994 08 complet ed HISTORICA L INFORMATI ON - FROM OTHER REGISTRY, [facility] Results Combined list of recent chemistry, hematology and other laboratory results from Department of Defense and Veterans Affairs, ranging from 15 months to all on record, depending upon the facility. Order Name Results Value Reference Range Date Interpretation Specimen Comments Source PREGNANC Y TEST URINE (MA-STL) CHORIOGONA DOTROPIN ( TEST) [PRESENCE] IN URINE NEG 12/22 Specimen Type: URINE No comment entered. Ordering Provider: MICKI COTTER Report Released Date/Time: Dec 23, 2023 04:13 PM Reporting Lab: [facility] [address] [address] Performing Lab: [address] [address] [facility] COVID-19 SCREENIN G PANEL (STL-PB) SARS-COV-2 [...] Dec 23, 2023 04:13 PM Reporting Lab: [address] [address] Performing Lab: [address] [phone] [place] [address] ETHANOL SERUM/PL ASMA (STL) ETHANOL [MASS/VOLU ME] IN SERUM OR PLASMA 300 mg/dL 0 - 10 12/22 H Specimen Type: PLASMA Comment: No hemolysis noted. Ordering Provider: MICKI COTTER Report Released Date/Time: Dec 23, 2023 04:13 PM Reporting Lab: [address] [address] Performing Lab: [address] [address] [facility] URINALYS IS (STL-PB) COLOR OF URINE Colorles s 12/22 Specimen Type: URINE No comment entered. Ordering Provider: MICKI COTTER Report Released Date/Time: Dec 23, 2023 04:13 PM Reporting Lab: [place] [address] [facility] [address] Performing Lab: [facility] [address] [place] [phone] [facility] URINALYS IS (STL-PB) BILIRUBIN. TOTAL [PRESENCE] IN URINE BY TEST STRIP Negative mg/dL 12/22 Specimen Type: URINE No comment entered. Ordering Provider: MICKI COTTER Report Released Date/Time: Dec 23, 2023 04:13 PM Reporting Lab: [facility] [address] [address] Performing Lab: [address] [address] [facility] URINALYS IS (STL-PB) PH OF URINE BY TEST STRIP 6.5 5.0 - 8.0 12/22 Specimen Type: URINE No comment entered. Ordering Provider: MICKI COTTER AR Report Released Date/Time: Dec 23, 2023 04:13 PM Reporting Lab: [place] [address] [address] [address] Performing Lab: [address] [address] [facility] URINALYS IS (STL-PB) APPEARANCE OF URINE Clear 12/22 Specimen Type: URINE No comment entered. Ordering Provider: MICKI COTTER Report Released Date/Time: Dec 23, 2023 04:13 PM Reporting Lab: [facility] [address] [address] Performing Lab: [facility] [address] [address] [facility] URINALYS IS (STL-PB) NITRITE [PRESENCE] IN URINE BY TEST STRIP Negative mg/dL 12/22 Specimen Type: URINE No comment entered. Ordering Provider: MICKI COTTER AR Report Released Date/Time: Dec 23, 2023 04:13 PM Reporting Lab: [place] [address] [place] [place] [phone] Performing Lab: [facility] [address] [address] [facility] URINALYS IS (STL-PB) GLUCOSE [MASS/VOLU ME] IN URINE BY TEST STRIP Normalmg /dL 12/22 Specimen Type: URINE No comment entered. Ordering Provider: MICKI COTTER Report Released Date/Time: Dec 23, 2023 04:13 PM Reporting Lab: [facility] [address] [address] Performing Lab: [address] [address] [facility] URINALYS IS (STL-PB) PROTEIN [MASS/VOLU ME] IN URINE BY TEST STRIP Negative mg/dL - 20 12/22 Specimen Type: URINE No comment entered. Ordering Provider: MICKI COTTER Report Released Date/Time: Dec 23, 2023 04:13 PM Reporting Lab: [place] [address] [address] [address] Performing Lab: [address] [address] [facility] URINALYS IS (STL-PB) URN.UROBIL INOGEN Normalmg /dL 12/22 Specimen Type: URINE No comment entered. Ordering Provider: MICKI COTTER Report Released Date/Time: Dec 23, 2023 04:13 PM Reporting Lab: [facility] [address] [place] [phone] Performing Lab: [address] [address] [facility] URINALYS IS (STL-PB) HEMOGLOBIN [MASS/VOLU ME] IN URINE BY TEST STRIP Negative mg/dL 12/22 Specimen Type: URINE No comment entered. Ordering Provider: MICKI COTTER Report Released Date/Time: Dec 23, 2023 04:13 PM Reporting Lab: [address]. [address] [address] Performing Lab: [address] [address] [facility] URINALYS IS (STL-PB) KETONES [MASS/VOLU ME] IN URINE BY TEST STRIP Negative mg/dL 12/22 Specimen Type: URINE No comment entered. Ordering Provider: MICKI COTTER Report Released Date/Time: Dec 23, 2023 04:13 PM Reporting Lab: [address] [address] Performing Lab: [address] [phone] URINALYS IS (STL-PB) URN.LEUK.E ST. Negative mg/dL 12/22 Specimen Type: URINE No comment entered. Ordering Provider: MICKI COTTER AR Report Released Date/Time: Dec 23, 2023 04:13 PM Reporting Lab: [address] [address] Performing Lab: [address] [phone] [place] [address] URINALYS IS (STL-PB) SPECIFIC GRAVITY OF URINE 1.009 1.005 - 1.029 12/22 Specimen Type: URINE No comment entered. Ordering Provider: MICKI COTTER AR Report Released Date/Time: Dec 23, 2023 04:13 PM Reporting Lab: [address] [address] Performing Lab: [address] [phone] METHADON E PANEL (STL) ETHANOL [MASS/VOLU ME] IN URINE 296-POSm g/dL 0 - 20 12/22 H Specimen Type: URINE Comment: The cut-off value for this test was laboratory developed and its performance characteris tics confirmed by the [facility] laboratory thru method comparison with reference laboratory and medication chart review. The laboratory is regulated under CLIA as qualified to perform high-comple xity testing. This test is used for clinical purposes in conjunction with other laboratory tests. Ordering Provider: MICKI COTTER Report Released Date/Time: Dec 23, 2023 04:13 PM Reporting Lab: [facility] [address] [address] Performing Lab: [facility] [address] [address] [facility] METHADON E PANEL (STL) AMPHETAMIN E [PRESENCE] IN URINE BY SCREEN METHOD Negative ng/mL 12/22 Specimen Type: URINE Comment: The cut-off value for this test was laboratory developed and its performance characteris tics confirmed by the [facility] laboratory thru method comparison with reference laboratory and medication chart review. The laboratory is regulated under CLIA as qualified to perform high-comple xity testing. This test is used for clinical purposes in conjunction with other laboratory tests. Ordering Provider: MICKI COTTER Report Released Date/Time: Dec 23, 2023 04:13 PM Reporting Lab: [facility] [address] [address] Performing Lab: [facility] [address] [place] [phone] [facility] METHADON E PANEL (STL) BENZOYLECG ONINE [PRESENCE] IN URINE Negative ng/mL 12/22 Specimen Type: URINE Comment: The cut-off value for this test was laboratory developed and its performance characteris tics confirmed by the [facility] laboratory thru method comparison with reference laboratory and medication chart review. The laboratory is regulated under CLIA as qualified to perform high-comple xity testing. This test is used for clinical purposes in conjunction with other laboratory tests. Ordering Provider: MICKI COTTER Report Released Date/Time: Dec 23, 2023 04:13 PM Reporting Lab: [facility] [address] [address] Performing Lab: [facility] [address] [phone] [place] [address] METHADON E PANEL (STL) BENZODIAZE PINES [PRESENCE] IN URINE BY SCREEN METHOD Negative ng/mL 12/22 Specimen Type: URINE Comment: The cut-off value for this test was laboratory developed and its performance characteris tics confirmed by the [facility] laboratory thru method comparison with reference laboratory and medication chart review. The laboratory is regulated under CLIA as qualified to perform high-comple xity testing. This test is used for clinical purposes in conjunction with other laboratory tests. Ordering Provider: MICKI COTTER AR Report Released Date/Time: Dec 23, 2023 04:13 PM Reporting Lab: [place] [phone] Performing Lab: [place] [phone] [place] [address] METHADON E PANEL (STL) CANNABINOI DS [PRESENCE] IN URINE BY SCREEN METHOD 99-POSng /mL 12/22 Specimen Type: URINE Comment: The cut-off value for this test was laboratory developed and its performance characteris tics confirmed by the [facility] laboratory thru method comparison with reference laboratory and medication chart review. The laboratory is regulated under CLIA as qualified to perform high-comple xity testing. This test is used for clinical purposes in conjunction with other laboratory tests. Ordering Provider: MICKI COTTER AR Report Released Date/Time: Dec 23, 2023 04:13 PM Reporting Lab: [place] [phone] Performing Lab: [address] [phone] [facility] METHADON E PANEL (STL) METHADONE [PRESENCE] IN URINE Negative ng/mL 12/22 Specimen Type: URINE Comment: The cut-off value for this test was laboratory developed and its performance characteris tics confirmed by the [facility] laboratory thru method comparison with reference laboratory and medication chart review. The laboratory is regulated under CLIA as qualified to perform high-comple xity testing. This test is used for clinical purposes in conjunction with other laboratory tests. Ordering Provider: MICKI COTTER AR Report Released Date/Time: Dec 23, 2023 04:13 PM Reporting Lab: [facility] [address] [place] [phone] Performing Lab: [facility] [address] [place] [phone] [facility] METHADON E PANEL (STL) OPIATES [PRESENCE] IN URINE BY SCREEN METHOD Negative ng/mL 12/22 Specimen Type: URINE Comment: The cut-off value for this test was laboratory developed and its performance characteris tics confirmed by the [facility] laboratory thru method comparison with reference laboratory and medication chart review. The laboratory is regulated under CLIA as qualified to perform high-comple xity testing. This test is used for clinical purposes in conjunction with other laboratory tests. Ordering Provider: MICKI COTTER AR Report Released Date/Time: Dec 23, 2023 04:13 PM Reporting Lab: [place] [address] [address] [address] Performing Lab: [address] [address] [facility] METHADON E PANEL (STL) CREATININE [MASS/VOLU ME] IN URINE 63.4 mg/dL 47 - 110 12/22 Specimen Type: URINE Comment: The cut-off value for this test was laboratory developed and its performance characteris tics confirmed by the [facility] laboratory thru method comparison with reference laboratory and medication chart review. The laboratory is regulated under CLIA as qualified to perform high-comple xity testing. This test is used for clinical purposes in conjunction with other laboratory tests. Ordering Provider: MICKI COTTER AR Report Released Date/Time: Dec 23, 2023 04:13 PM Reporting Lab: [address] [address] Performing Lab: [address] [phone] [facility] METHADON E PANEL (STL) OXYCODONE CUTOFF [MASS/VOLU ME] IN URINE FOR SCREEN METHOD Negative ng/mL 12/22 Specimen Type: URINE Comment: The cut-off value for this test was laboratory developed and its performance characteris tics confirmed by the [facility] laboratory thru method comparison with reference laboratory and medication chart review. The laboratory is regulated under CLIA as qualified to perform high-comple xity testing. This test is used for clinical purposes in conjunction with other laboratory tests. Ordering Provider: MICKI COTTER Report Released Date/Time: Dec 23, 2023 04:13 PM Reporting Lab: [address] [address] Performing Lab: [address] [address] [address] [facility] METHADON E PANEL (STL) BUPRENORPH INE [PRESENCE] IN URINE Negative 12/22 Specimen Type: URINE Comment: The cut-off value for this test was laboratory developed and its performance characteris tics confirmed by the [facility] laboratory thru method comparison with reference laboratory and medication chart review. The laboratory is regulated under CLIA as qualified to perform high-comple xity testing. This test is used for clinical purposes in conjunction with other laboratory tests. Ordering Provider: MICKI COTTER Report Released Date/Time: Dec 23, 2023 04:13 PM Reporting Lab: [address] [address] Performing Lab: [address] [address] [facility] METHADON E PANEL (STL) FENTANYL [PRESENCE] IN URINE Negative ng/mL 12/22 Specimen Type: URINE Comment: The cut-off value for this test was laboratory developed and its performance characteris tics confirmed by the [facility] laboratory thru method comparison with reference laboratory and medication chart review. The laboratory is regulated under CLIA as qualified to perform high-comple xity testing. This test is used for clinical purposes in conjunction with other laboratory tests. Ordering Provider: MICKI COTTER AR Report Released Date/Time: Dec 23, 2023 04:13 PM Reporting Lab: [address] [place] [address] Performing Lab: [facility] [address] [address] [facility] COMPREHE NSIVE METABOLI C PANEL CREATININE [MASS/VOLU ME] IN SERUM OR PLASMA 0.84 mg/dL 0.6 - 1.1 12/22 Specimen Type: PLASMA Comment: No hemolysis noted. Ordering Provider: MICKI COTTER AR Report Released Date/Time: Dec 23, 2023 04:13 PM Reporting Lab: [address] [address] Performing Lab: [address] [phone] [place] [address] COMPREHE NSIVE METABOLI C PANEL UREA NITROGEN [MASS/VOLU ME] IN SERUM OR PLASMA 5.6 mg/dL 9.0 - 25.0 12/22 L Specimen Type: PLASMA Comment: No hemolysis noted. Ordering Provider: MICKI COTTER Report Released Date/Time: Dec 23, 2023 04:13 PM Reporting Lab: [address] [address] Performing Lab: [address] [address] [facility] COMPREHE NSIVE METABOLI C PANEL GLUCOSE [MASS/VOLU ME] IN SERUM OR PLASMA 109 mg/dL 72 - 99 12/22 H Specimen Type: PLASMA Comment: No hemolysis noted. Ordering Provider: MICKI COTTER AR Report Released Date/Time: Dec 23, 2023 04:13 PM Reporting Lab: [address] [address] Performing Lab: [address] [address] [facility] COMPREHE NSIVE METABOLI C PANEL SODIUM [MOLES/VOL UME] IN SERUM OR PLASMA 139 meq/L 136 - 145 12/22 Specimen Type: PLASMA Comment: No hemolysis noted. Ordering Provider: MICKI COTTER AR Report Released Date/Time: Dec 23, 2023 04:13 PM Reporting Lab: [facility] [address] [facility] [address] Performing Lab: [facility] [address] [place] [phone] [facility] COMPREHE NSIVE METABOLI C PANEL POTASSIUM [MOLES/VOL UME] IN SERUM OR PLASMA 3.7 meq/L 3.5 - 5 12/22 Specimen Type: PLASMA Comment: No hemolysis noted. Ordering Provider: MICKI COTTER AR Report Released Date/Time: Dec 23, 2023 04:13 PM Reporting Lab: [facility] [address] [place] [address] Performing Lab: [facility] [address] [place] [address] [facility] COMPREHE NSIVE METABOLI C PANEL CHLORIDE [MOLES/VOL UME] IN SERUM OR PLASMA 108 meq/L 98 - 107 12/22 H Specimen Type: PLASMA Comment: No hemolysis noted. Ordering Provider: MICKI COTTER AR Report Released Date/Time: Dec 23, 2023 04:13 PM Reporting Lab: [facility] [address] [address] Performing Lab: [facility] [address] [address] [facility] COMPREHE NSIVE METABOLI C PANEL CARBON DIOXIDE, TOTAL [MOLES/VOL UME] IN SERUM OR PLASMA 17 meq/L 22 - 31 12/22 L Specimen Type: PLASMA Comment: No hemolysis noted. Ordering Provider: MICKI COTTER AR Report Released Date/Time: Dec 23, 2023 04:13 PM Reporting Lab: [facility] [address] [facility] [address] Performing Lab: [facility] [address] [address] [facility] COMPREHE NSIVE METABOLI C PANEL CALCIUM [MASS/VOLU ME] IN SERUM OR PLASMA 9.1 mg/dL 8.4 - 10.4 12/22 Specimen Type: PLASMA Comment: No hemolysis noted. Ordering Provider: MICKI COTTER Report Released Date/Time: Dec 23, 2023 04:13 PM Reporting Lab: [place] [address] [facility] [address] Performing Lab: [place] [address] [facility] [address] [facility] COMPREHE NSIVE METABOLI C PANEL PROTEIN [MASS/VOLU ME] IN SERUM OR PLASMA 8.2 g/dL 6 - 8.6 12/22 Specimen Type: PLASMA Comment: No hemolysis noted. Ordering Provider: MICKI COTTER Report Released Date/Time: Dec 23, 2023 04:13 PM Reporting Lab: [address] [address] Performing Lab: [place] [address] [facility] [address] [facility] COMPREHE NSIVE METABOLI C PANEL ALBUMIN [MASS/VOLU ME] IN SERUM OR PLASMA 4.4 g/dL 3.4 - 5 12/22 Specimen Type: PLASMA Comment: No hemolysis noted. Ordering Provider: MICKI COTTER Report Released Date/Time: Dec 23, 2023 04:13 PM Reporting Lab: [address] [address] Performing Lab: [place] [address] [facility] [address] [facility] COMPREHE NSIVE METABOLI C PANEL BILIRUBIN. TOTAL [MASS/VOLU ME] IN SERUM OR PLASMA 0.3 mg/dL 0.2 - 1.2 12/22 Specimen Type: PLASMA Comment: No hemolysis noted. Ordering Provider: MICKI COTTER Report Released Date/Time: Dec 23, 2023 04:13 PM Reporting Lab: [address] [address] Performing Lab: [facility] [address] [address] [facility] COMPREHE NSIVE METABOLI C PANEL ALKALINE PHOSPHATAS E [ENZYMATIC ACTIVITY/V OLUME] IN SERUM OR PLASMA 82 U/L 40 - 150 12/22 Specimen Type: PLASMA Comment: No hemolysis noted. Ordering Provider: MICKI COTTER Report Released Date/Time: Dec 23, 2023 04:13 PM Reporting Lab: [address] [address] Performing Lab: [place] [address] [facility] [address] [facility] COMPREHE NSIVE METABOLI C PANEL ASPARTATE AMINOTRANS FERASE [ENZYMATIC ACTIVITY/V OLUME] IN SERUM OR PLASMA 25 U/L 5 - 34 12/22 Specimen Type: PLASMA Comment: No hemolysis noted. Ordering Provider: MICKI COTTER Report Released Date/Time: Dec 23, 2023 04:13 PM Reporting Lab: [place] [address] [facility] [address] Performing Lab: [address] [address] [facility] COMPREHE NSIVE METABOLI C PANEL ALANINE AMINOTRANS FERASE [ENZYMATIC ACTIVITY/V OLUME] IN SERUM OR PLASMA 17 U/L 8 - 40 12/22 Specimen Type: PLASMA Comment: No hemolysis noted. Ordering Provider: MICKI COTTER Report Released Date/Time: Dec 23, 2023 04:13 PM Reporting Lab: [facility] [address] [address] Performing Lab: [address] [address] [facility] COMPREHE NSIVE METABOLI C PANEL GLOMERULAR FILTRATION RATE/1.73 SQ M.PREDICTE D [VOLUME RATE/AREA] IN SERUM, PLASMA OR BLOOD BY CREATININE -BASED FORMULA (CKD-EPI 2020) 97.0 60 12/22 Specimen Type: PLASMA Comment: No hemolysis noted. Ordering Provider: MICKI COTTER AR Report Released Date/Time: Dec 23, 2023 04:13 PM Reporting Lab: [address] [address] Performing Lab: [address] [address] [facility] CBC LEUKOCYTES [#/VOLUME] IN BLOOD BY AUTOMATED COUNT 6.3 10*3/uL 3.6 - 11.2 12/22 Specimen Type: BLOOD No comment entered. Ordering Provider: MICKI COTTER AR Report Released Date/Time: Dec 23, 2023 04:13 PM Reporting Lab: [address] [address] Performing Lab: [address] [phone] [place] [address] CBC ERYTHROCYT ES [#/VOLUME] IN BLOOD BY AUTOMATED COUNT 4.72 10*6/uL 3.60 - 5.00 12/22 Specimen Type: BLOOD No comment entered. Ordering Provider: MICKI COTTER AR Report Released Date/Time: Dec 23, 2023 04:13 PM Reporting Lab: [address] [address] Performing Lab: [address] [address] [facility] CBC HEMOGLOBIN [MASS/VOLU ME] IN BLOOD 11.8 g/dL 11.0 - 14.9 12/22 Specimen Type: BLOOD No comment entered. Ordering Provider: MICKI COTTER AR Report Released Date/Time: Dec 23, 2023 04:13 PM Reporting Lab: [address] [address] Performing Lab: [address] [address] [facility] CBC HEMATOCRIT [VOLUME FRACTION] OF BLOOD 36.7 32.6 - 43.4 12/22 Specimen Type: BLOOD No comment entered. Ordering Provider: MICKI COTTER AR Report Released Date/Time: Dec 23, 2023 04:13 PM Reporting Lab: [address] [address] Performing Lab: [address] [address] [facility] CBC MCV [ENTITIC VOLUME] BY AUTOMATED COUNT 77.8 fL 80.0 - 100.0 12/22 L Specimen Type: BLOOD No comment entered. Ordering Provider: MICKI COTTER AR Report Released Date/Time: Dec 23, 2023 04:13 PM Reporting Lab: [address] [address] Performing Lab: [address] [phone] [place] [address] CBC MCH [ENTITIC MASS] BY AUTOMATED COUNT 25.0 pg 27.0 - 34.0 12/22 L Specimen Type: BLOOD No comment entered. Ordering Provider: MICKI COTTER AR Report Released Date/Time: Dec 23, 2023 04:13 PM Reporting Lab: [address] [address] Performing Lab: [address] [phone] [place] [address] CBC MCHC [MASS/VOLU ME] BY AUTOMATED COUNT 32.2 g/dL 33.0 - 36.0 12/22 L Specimen Type: BLOOD No comment entered. Ordering Provider: MICKI COTTER AR Report Released Date/Time: Dec 23, 2023 04:13 PM Reporting Lab: [address] [address] Performing Lab: [address] [address] [facility] CBC PLATELETS [#/VOLUME] IN BLOOD BY AUTOMATED COUNT 309 10*3/uL 150 - 400 12/22 Specimen Type: BLOOD No comment entered. Ordering Provider: MICKI COTTER AR Report Released Date/Time: Dec 23, 2023 04:13 PM Reporting Lab: [facility] [address] [place] [address] Performing Lab: [facility] [address] [place] [address] [facility] CBC PLATELET MEAN VOLUME [ENTITIC VOLUME] IN BLOOD BY AUTOMATED COUNT 10.3 fL 7.5 - 11.2 12/22 Specimen Type: BLOOD No comment entered. Ordering Provider: MICKI COTTER AR Report Released Date/Time: Dec 23, 2023 04:13 PM Reporting Lab: [address] [address] Performing Lab: [address] [address] [facility] CBC ERYTHROCYT E DISTRIBUTI ON WIDTH [RATIO] BY AUTOMATED COUNT 17.3 11.8 - 15.1 12/22 H Specimen Type: BLOOD No comment entered. Ordering Provider: MICKI COTTER AR Report Released Date/Time: Dec 23, 2023 04:13 PM Reporting Lab: [facility] [address] [place] [address] Performing Lab: [address] [address] [facility] CBC LYMPHOCYTE S/100 LEUKOCYTES IN BLOOD BY AUTOMATED COUNT 58 12/22 Specimen Type: BLOOD No comment entered. Ordering Provider: MICKI COTTER AR Report Released Date/Time: Dec 23, 2023 04:13 PM Reporting Lab: [facility] [address] [place] [phone] Performing Lab: [address] [address] [facility] CBC MONOCYTES/ 100 LEUKOCYTES IN BLOOD BY AUTOMATED COUNT 6 12/22 Specimen Type: BLOOD No comment entered. Ordering Provider: MICKI COTTER AR Report Released Date/Time: Dec 23, 2023 04:13 PM Reporting Lab: [facility] [address] [facility] [address] Performing Lab: [facility] [address] [address] [facility] CBC NEUTROPHIL S/100 LEUKOCYTES IN BLOOD BY AUTOMATED COUNT 32 12/22 Specimen Type: BLOOD No comment entered. Ordering Provider: MICKI COTTER Report Released Date/Time: Dec 23, 2023 04:13 PM Reporting Lab: [facility] [address] [address] Performing Lab: [facility] [address] [address] [facility] CBC EOSINOPHIL S/100 LEUKOCYTES IN BLOOD BY AUTOMATED COUNT 2 12/22 Specimen Type: BLOOD No comment entered. Ordering Provider: MICKI COTTER AR Report Released Date/Time: Dec 23, 2023 04:13 PM Reporting Lab: [facility] [address] [facility] [address] Performing Lab: [facility] [address] [address] [facility] CBC BASOPHILS/ 100 LEUKOCYTES IN BLOOD BY AUTOMATED COUNT 1 12/22 Specimen Type: BLOOD No comment entered. Ordering Provider: MICKI COTTER AR Report Released Date/Time: Dec 23, 2023 04:13 PM Reporting Lab: [facility] [address] [address] Performing Lab: [facility] [address] [address] [facility] CBC LYMPHOCYTE S [#/VOLUME] IN BLOOD BY AUTOMATED COUNT 3.67 10*3/uL 0.77 - 4.50 12/22 Specimen Type: BLOOD No comment entered. Ordering Provider: MIKCI COTTER AR Report Released Date/Time: Dec 23, 2023 04:13 PM Reporting Lab: [facility] [address] [address] Performing Lab: [address] [address] [facility] CBC MONOCYTES [#/VOLUME] IN BLOOD BY AUTOMATED COUNT 0.39 10*3/uL 0.19 - 0.80 12/22 Specimen Type: BLOOD No comment entered. Ordering Provider: MICKI COTTER Report Released Date/Time: Dec 23, 2023 04:13 PM Reporting Lab: [address] [address] Performing Lab: [address] [address] [facility] CBC NEUTROPHIL S [#/VOLUME] IN BLOOD BY AUTOMATED COUNT 2.03 10*3/uL 2.10 - 8.00 12/22 L Specimen Type: BLOOD No comment entered. Ordering Provider: MICKI COTTER AR Report Released Date/Time: Dec 23, 2023 04:13 PM Reporting Lab: [address] [address] Performing Lab: [address] [address] [facility] CBC EOSINOPHIL S [#/VOLUME] IN BLOOD BY AUTOMATED COUNT 0.13 10*3/uL 0.00 - 0.60 12/22 Specimen Type: BLOOD No comment entered. Ordering Provider: MICKI COTTER Report Released Date/Time: Dec 23, 2023 04:13 PM Reporting Lab: [address] [address] Performing Lab: [address] [address] [facility] CBC BASOPHILS [#/VOLUME] IN BLOOD BY AUTOMATED COUNT 0.08 10*3/uL 0.00 - 0.20 12/22 Specimen Type: BLOOD No comment entered. Ordering Provider: MICKI COTTER AR Report Released Date/Time: Dec 23, 2023 04:13 PM Reporting Lab: [place] [phone] Performing Lab: [facility] [address] [facility] [address] [facility] METHADON E PANEL (STL) ETHANOL [MASS/VOLU ME] IN URINE Negative mg/dL 0 - 20 04/12 Specimen Type: URINE Comment: The cut-off value for this test was laboratory developed and its performance characteris tics confirmed by the [facility] laboratory thru method comparison with reference laboratory and medication chart review. The laboratory is regulated under CLIA as qualified to perform high-comple xity testing. This test is used for clinical purposes in conjunction with other laboratory tests. Ordering Provider: MERLE LANG Report Released Date/Time: Apr 12, 2023 07:25 AM Reporting Lab: [address] [phone] Performing Lab: [address] [address] [facility] METHADON E PANEL (STL) AMPHETAMIN E [PRESENCE] IN URINE BY SCREEN METHOD Negative ng/mL 04/12 Specimen Type: URINE Comment: The cut-off value for this test was laboratory developed and its performance characteris tics confirmed by the [facility] laboratory thru method comparison with reference laboratory and medication chart review. The laboratory is regulated under CLIA as qualified to perform high-comple xity testing. This test is used for clinical purposes in conjunction with other laboratory tests. Ordering Provider: MERLE LANG Report Released Date/Time: Apr 12, 2023 07:25 AM Reporting Lab: [place] [address] [facility] [address] Performing Lab: [address] [address] [facility] METHADON E PANEL (STL) BENZOYLECG ONINE [PRESENCE] IN URINE Negative ng/mL 04/12 Specimen Type: URINE Comment: The cut-off value for this test was laboratory developed and its performance characteris tics confirmed by the [facility] laboratory thru method comparison with reference laboratory and medication chart review. The laboratory is regulated under CLIA as qualified to perform high-comple xity testing. This test is used for clinical purposes in conjunction with other laboratory tests. Ordering Provider: MERLE LANG Report Released Date/Time: Apr 12, 2023 07:25 AM Reporting Lab: [facility] [address] [address] Performing Lab: [facility] [address] [address] [facility] METHADON E PANEL (STL) BENZODIAZE PINES [PRESENCE] IN URINE BY SCREEN METHOD Negative ng/mL 04/12 Specimen Type: URINE Comment: The cut-off value for this test was laboratory developed and its performance characteris tics confirmed by the [facility] laboratory thru method comparison with reference laboratory and medication chart review. The laboratory is regulated under CLIA as qualified to perform high-comple xity testing. This test is used for clinical purposes in conjunction with other laboratory tests. Ordering Provider: MERLE LANG Report Released Date/Time: Apr 12, 2023 07:25 AM Reporting Lab: [address] [address] Performing Lab: [address] [address] [facility] METHADON E PANEL (STL) CANNABINOI DS [PRESENCE] IN URINE BY SCREEN METHOD 100-POSn g/mL 04/12 Specimen Type: URINE Comment: The cut-off value for this test was laboratory developed and its performance characteris tics confirmed by the [facility] laboratory thru method comparison with reference laboratory and medication chart review. The laboratory is regulated under CLIA as qualified to perform high-comple xity testing. This test is used for clinical purposes in conjunction with other laboratory tests. Ordering Provider: MERLE LANG Report Released Date/Time: Apr 12, 2023 07:25 AM Reporting Lab: [facility] [address] [place] [phone] Performing Lab: [facility] [address] [address] [facility] METHADON E PANEL (STL) METHADONE [PRESENCE] IN URINE Negative ng/mL 04/12 Specimen Type: URINE Comment: The cut-off value for this test was laboratory developed and its performance characteris tics confirmed by the [facility] laboratory thru method comparison with reference laboratory and medication chart review. The laboratory is regulated under CLIA as qualified to perform high-comple xity testing. This test is used for clinical purposes in conjunction with other laboratory tests. Ordering Provider: MERLE LANG Report Released Date/Time: Apr 12, 2023 07:25 AM Reporting Lab: [address] [address] Performing Lab: [address] [address] [facility] METHADON E PANEL (STL) OPIATES [PRESENCE] IN URINE BY SCREEN METHOD Negative ng/mL 04/12 Specimen Type: URINE Comment: The cut-off value for this test was laboratory developed and its performance characteris tics confirmed by the [facility] laboratory thru method comparison with reference laboratory and medication chart review. The laboratory is regulated under CLIA as qualified to perform high-comple xity testing. This test is used for clinical purposes in conjunction with other laboratory tests. Ordering Provider: MERLE LANG Report Released Date/Time: Apr 12, 2023 07:25 AM Reporting Lab: [address] [address] Performing Lab: [address] [address] [facility] METHADON E PANEL (STL) CREATININE [MASS/VOLU ME] IN URINE 59.3 mg/dL 47 - 110 04/12 Specimen Type: URINE Comment: The cut-off value for this test was laboratory developed and its performance characteris tics confirmed by the [facility] laboratory thru method comparison with reference laboratory and medication chart review. The laboratory is regulated under CLIA as qualified to perform high-comple xity testing. This test is used for clinical purposes in conjunction with other laboratory tests. Ordering Provider: MERLE LANG Report Released Date/Time: Apr 12, 2023 07:25 AM Reporting Lab: [facility] [address] [facility] [address] [address] Performing Lab: [facility] [address] [facility] [address] [address] [facility] METHADON E PANEL (STL) OXYCODONE CUTOFF [MASS/VOLU ME] IN URINE FOR SCREEN METHOD Negative ng/mL 04/12 Specimen Type: URINE Comment: The cut-off value for this test was laboratory developed and its performance characteris tics confirmed by the [facility] laboratory thru method comparison with reference laboratory and medication chart review. The laboratory is regulated under CLIA as qualified to perform high-comple xity testing. This test is used for clinical purposes in conjunction with other laboratory tests. Ordering Provider: MERLE LAGN Report Released Date/Time: Apr 12, 2023 07:25 AM Reporting Lab: [place] [address] [facility] [address] Performing Lab: [address] [address] [facility] METHADON E PANEL (STL) BUPRENORPH INE [PRESENCE] IN URINE Negative 04/12 Specimen Type: URINE Comment: The cut-off value for this test was laboratory developed and its performance characteris tics confirmed by the [facility] laboratory thru method comparison with reference laboratory and medication chart review. The laboratory is regulated under CLIA as qualified to perform high-comple xity testing. This test is used for clinical purposes in conjunction with other laboratory tests. Ordering Provider: MERLE LANG Report Released Date/Time: Apr 12, 2023 07:25 AM Reporting Lab: [facility] [address] [facility] [address] [address] Performing Lab: [facility] [address] [place] [phone] [facility] METHADON E PANEL (STL) FENTANYL [PRESENCE] IN URINE Negative ng/mL 04/12 Specimen Type: URINE Comment: The cut-off value for this test was laboratory developed and its performance characteris tics confirmed by the [facility] laboratory thru method comparison with reference laboratory and medication chart review. The laboratory is regulated under CLIA as qualified to perform high-comple xity testing. This test is used for clinical purposes in conjunction with other laboratory tests. Ordering Provider: MERLE LANG Report Released Date/Time: Apr 12, 2023 07:25 AM Reporting Lab: [facility] [address] [facility] [address] [address] Performing Lab: [address] [address] [facility] GC & CHLAMYDI A PCR (STL-PB) NEISSERIA [...] Reporting Lab: [facility] [address] [facility] [address] [address] Performing Lab: [place] [address] [facility] [address] [facility] GC & CHLAMYDI A PCR (STL-PB) CHLAMYDIA SP DNA [PRESENCE] IN URINE BY [...] Apr 06, 2023 02:04 PM Reporting Lab: [address] [address] Performing Lab: [address] [address] [facility] RAPID PLASMA REAGIN (RPR) REAGIN AB [PRESENCE] IN SERUM BY RPR NON-REAC TIVE 04/07 Specimen Type: SERUM No comment entered. Ordering Provider: MAREN GROVE Report Released Date/Time: Apr 06, 2023 02:04 PM Reporting Lab: [address] [address] Performing Lab: [address] [address] [facility] Encounters Combined list of: 1) Encounters from Department of [facility] Affairs facilities going backup to the last 18 months, not all [place] inpatient encounters are included; 2) Encounters from the Department of Defense facilities going backup to 280 months. Location Location Details Encounter Type Encounter Number Reason For Visit Attending Provider ADM Date DC Date Status Disposition Source [facility]) OUTPATIENT [id number] Notes Entered by: VERNON DURÁN OD 29 Sep 2017 1104 ------- ------- ------- ------- -- right ankle injury TEZ AJ 09/29 Released with Work/Duty Limitations [employer] Group(I EP Primary Care) [employer](PES Optometry -Trainee) OUTPATIENT [id number] BARRON LEAL 09/29 Released w/o Limitations [employer](P ES Optomet ry-Kirill nee) [employer]([facility] Physical Exam) OUTPATIENT [id number] Notes Entered by: Nicolasa CHEATHAM 03 Oct 2017 0734 ------- ------- ------- ------- -- To get clear to ship for right ankle TEZ AJ 10/03 Released w/o Limitations [employer](R MC Physica l Exam) [facility](JORGE LUIS C Immunizat ions (Post)) OUTPATIENT [id number] Notes Entered by: Pieter GOMEZ 04 Oct 2017 1005 ------- ------- ------- ------- -- IET MESHA NOLAN 10/04 Released w/o Limitations [facility] Immuniz ations (Post)) [facility] Physical Therapy) OUTPATIENT [id number] Notes Entered by: FORTUNATO ORDOÑEZ 06 Oct 2017 0955 ------- ------- ------- ------- -- Ankle pain DULCE MARIA KEMP 10/06 Released w/o Limitations [facility](T MC Physica l Therapy ) [facility] Physical Therapy) OUTPATIENT [id number] Notes Entered by: FORTUNATO ORDOÑEZ 12 Oct 2017 1021 ------- ------- ------- ------- -- Ankle pain DULCE MARIA KEMP 10/12 Released with Work/Duty Limitations [employer](T MC Physica l Therapy ) [facility] C Immunizat ions (Post)) OUTPATIENT [id number] Notes Entered by: Pieter GOMEZ 02 Nov 2017 1017 ------- ------- ------- ------- -- DF MESHA NOLAN 11/02 Released w/o Limitations [facility](M [facility] Immuniz ations (Post)) [facility]([address]) OUTPATIENT [id number] Notes Entered by: RIO LIPSCOMB 02 Jan 2018 0701 ------- ------- ------- ------- -- Lighthe aded Dizzy HARITHA NGO 01/02 Sick at Home/Quarter s [facility]([address]) [facility]([address]) TELE CONSULT [id number] Notes Entered by: HARITHA NGO 03 Jan 2018 1018 ------- ------- ------- ------- -- To review labs ELPIDIO TURCIOS 01/03 [facility]([address]) [facility]([address]) OUTPATIENT [id number] Notes Entered by: RIO LIPSCOMB 05 Jan 2018 0633 ------- ------- ------- ------- -- Follow up call back HARITHA NGO 01/05 Released w/o Limitations [facility]([address]) [facility]([address]) OUTPATIENT [id number] Notes Entered by: SORIN HERZOG 13 Jan 2018 0643 ------- ------- ------- ------- -- ankle pain HARITHA NGO 01/13 Released with Work/Duty Limitations [facility]([address]) [facility]([address]) OUTPATIENT [id number] Notes Entered by: SORIN HERZOG 24 Jan 2018 0634 ------- ------- ------- ------- -- follow up HARITHA NGO 01/24 Released with Work/Duty Limitations [facility]([address]) [facility]([address]) OUTPATIENT [id number] Notes Entered by: RIO LIPSCOMB 30 Jan 2018 0636 ------- ------- ------- ------- -- Ankle pain F/U HARITHA NGO 01/30 Released with Work/Duty Limitations [facility]([address]) [facility]([address]) TELE CONSULT [id number] Notes Entered by: Dick ZAMAN 14 Feb 2018 1447 ------- ------- ------- ------- -- f/u mri WALLY ZAMAN 02/14 [facility]([address]) [facility]([address]) OUTPATIENT [id number] Notes Entered by: Aaron RODRIGUEZ 15 Feb 2018 0705 ------- ------- ------- ------- -- Right Ankle AMINTA BRAMBILA 02/15 Released with Work/Duty Limitations [facility]([address]) [facility]([address]) OUTPATIENT [id number] Pain in right ankle and joints of right foot AMINTA BRAMBILA 02/20 Released with Work/Duty Limitations [facility]([address]) [facility]) OUTPATIENT [id number] unstabl e fractur ed ankle ESTEFANI HOANG 02/21 Released w/o Limitations [facility](Anil [facility]) [facility]([address]) OUTPATIENT [id number] Ankle Pain AMINTA BRAMBILA 02/24 Released w/o Limitations [facility] -[facility] Primary [facility] [place]) [place] OUTPATIENT [id number] Notes Entered by: MIKE POWELL E 08 Sep 2018 0929 ------- ------- ------- ------- -- imr/pha /mf 830/flu /hep b/g6pd/ vision YESSENIA LEE 09/08 Released w/o Limitations [place] [place]IE[place] Conserv[place] Exam[place] OUTPATIENT [id number] Notes Entered by: MANUEL BASURTO 08 Sep 2018 1112 ------- ------- ------- ------- -- MANUEL Rossi 09/08 Released w/o Limitations [place] Exam) [facility] Dez CHILDS [place] Fam Res [place]) TELE CONSULT [id number] Notes Entered by: Sandi CHANEY 23 Sep 2018 0744 ------- ------- ------- ------- -- F/u ER visit NYDIA CHANEY 09/23 Referred for Appointment [facility] Dez CHILDS [place] [place]S [facility]am [facility] [place]) [facility] HC PRO PHONE CALL 11-20 MIN [id number] Diagnos is: ICD-10- CM F43.12 Post-tr aumatic stress disorde r, chronic CASADY,TAR A E 08/24 [facility] Outpatient Encounter [id number] Diagnos is: ICD-10- CM F43.10 Post-tr aumatic stress disorde r, unspeci PAWEL Varela S 08/24 [facility] OFFICE O/P EST HI 40 MIN [id number] [id number] Diagnos is: ICD-10- CM F43.10 Post-tr aumatic stress disorde r, unspeci PAWEL Varela S 08/24 [facility] [place] [facility] CASE MANAGEMENT [id number] [id number] Diagnos is: ICD-10- CM Z59.02 Unshelt ered homesophie NGUYEN,BUD LAURA P 08/[address] [facility] PSYTX W PT 45 MINUTES [id number] [id number] Diagnos is: ICD-10- CM F43.12 Post-tr aumatic stress disorde r, chronic TYRESE,SHE LBY L 08/30 [facility] HC PRO PHONE CALL 21-30 MIN [id number] Diagnos is: ICD-10- CM F43.12 Post-tr aumatic stress disorde r, chronic CASADY,TAR A E 09/01 [facility] [place] [facility] HC PRO PHONE CALL 5-10 MIN [id number] [id number] Diagnos is: ICD-10- CM Z59.02 Unshelt ered homeles celine NGUYEN,MAD LAURA P 09/[address] [facility] [place] [facility] [place] [facility] HC PRO PHONE CALL 11-20 MIN [id number] [id number] Diagnos is: ICD-10- CM Z59.02 Unshelt ered homeles snanel NGUYEN,MAD LAURA P 09/[address] [facility] [place] [facility] CASE MANAGEMENT [id number] [id number] Diagnos is: ICD-10- CM Z59.02 Unshelt ered BUD Byrd P 09/[address] [facility] OFFICE O/P NEW MOD 45 MIN [id number] [id number] Diagnos is: ICD-10- CM F43.10 Post-tr aumatic stress disorde r, unspeci fied MAIRA,JEROMY MARCUM E 09/12 [facility] [place] [facility] HC PRO PHONE CALL 21-30 MIN [id number] [id number] Diagnos is: ICD-10- CM Z59.02 Unshelt BUD SolisNE P 09/[address] [facility] [place] [facility] PSYTX W PT 45 MINUTES [id number] [id number] Diagnos is: ICD-10- CM Z59.02 Unshelt ereBUD MiddletonNE P 09/[address] [facility] PSYTX W PT 60 MINUTES [id number] [id number] Diagnos is: ICD-10- CM F31.89 Other bipolar disorde r LAY XIONG HARIY L 09/19 [facility] [place] [facility] PT EDUCATION NOC INDIVID [id number] [id number] Diagnos is: ICD-10- CM Z59.02 Unshelt ered homeBUD PoseyNE P 09/[address] [facility] [place] [place] HC PRO PHONE CALL 5-10 MIN [id number] [id number] Diagnos is: ICD-10- CM Z59.02 Unshelt ereBUD MiddletonNE P 09/[address] [facility] [facility] [place] PT EDUCATION NOC INDIVID [id number] [id number] Diagnos is: ICD-10- CM Z59.9 Problem related to housing and economi c whitley daviseverardokenyaROSA ELBA M 09/[address] [facility] PSYTX W PT 60 MINUTES [id number] [id number] Diagnos is: ICD-10- CM F31.89 Other bipolar disorde r LAY XIONG L 10/03 [facility] [place] [facility] [facility] HC PRO PHONE CALL 11-20 MIN [id number] [id number] Diagnos is: ICD-10- CM Z59.02 Unshelt ered homeBUD Posey LAURA P 10/[address] [facility] Outpatient Encounter [id number] [id number] 10/04 [facility] Outpatient Encounter [id number] [id number] 10/05 [facility] [place] [facility] PSYTX W PT 30 MINUTES [id number] [id number] Diagnos is: ICD-10- CM Z59.02 Unshelt ered homesophie NGUYENBUD LAURA P 10/[address] [facility] [facility] PRO PHONE CALL 21-30 MIN [id number] [id number] Diagnos is: ICD-10- CM Z59.9 Problem related to housing and economi c whitley daviseverardokenya HA ELBA M 10/[address] [facility] [facility] PRO PHONE CALL 21-30 MIN [id number] [id number] Diagnos is: ICD-10- CM Z59.9 Problem related to housing and economi c circums tances, unsp JANOCH,MAD LAURA P 10/16 [address] [facility] Outpatient Encounter [id number] [id number] 10/17 [facility] Outpatient Encounter [id number] 10/17 [facility] N [facility] Outpatient Encounter [id number] [id number] 10/17 [facility] Outpatient Encounter [id number] ABHILASHTAR A E 10/24 [facility] HC PRO PHONE CALL 21-30 MIN [id number] [id number] Diagnos is: ICD-10- CM Z59.9 Problem related to housing and economi c circums tances, unsp JANOCH,MAD LAURA P 10/26 [address] [facility] Outpatient Encounter [id number] NEHEMIASALLEY 10/26 [facility] CASE MANAGEMENT [id number] Diagnos is: ICD-10- CM Z59.89 Other problem s related to housing and economi c circums tances GREEN,LEANN SEA 10/31 [address] [facility] HC PRO PHONE CALL 5-10 MIN [id number] [id number] Diagnos is: ICD-10- CM Z59.9 Problem related to housing and economi c circums tances, unsp JANOCH,MAD LAURA P 11/02 [address] [facility] Outpatient Encounter [id number] [id number] 11/06 [facility] [place] [facility] HC PRO PHONE CALL 21-30 MIN [id number] [id number] Diagnos is: ICD-10- CM Z59.89 Other problem s related to housing and economi c circums LEANN Tsai SEA 11/08 [address] [facility] Outpatient Encounter [id number]. [id number] 11/09 [facility] [place] [facility] HC PRO PHONE CALL 21-30 MIN [id number] [id number] Diagnos is: ICD-10- CM Z59.89 Other problem s related to housing and economi c circums LEANN Tsai SEA 11/10 [address] [facility] [place] [facility] CASE MANAGEMENT [id number]. [id number] Diagnos is: ICD-10- CM Z59.89 Other problem s related to housing and economi c LEANN Leal SEA 11/14 [address] [facility] OFFICE O/P EST MOD 30 MIN [id number] [id number] Diagnos is: ICD-10- CM F10.20 Alcohol depende nce, uncompl icated JEROMY RAO E 11/14 [facility] [place] [facility] Outpatient Encounter [id number] [id number] 11/14 [address] [facility] Outpatient Encounter [id number] [id number] 11/15 [facility] Outpatient Encounter [id number] 11/16 [facility] HC PRO PHONE CALL 21-30 MIN [id number] [id number] Diagnos is: ICD-10- CM F10.20 Alcohol depende nce, uncompl icated ACTE HUNG E 11/20 [facility] HC PRO PHONE CALL 11-20 MIN [id number] [id number] Diagnos is: ICD-10- CM Z71.89 Other specifi ed quitline counselor ing ALEX BECK 11/21 [facility] [place] [facility] CASE MANAGEMENT [id number] [id number] Diagnos is: ICD-10- CM Z59.89 Other problem s related to housing and economi c circums tances GREEN,LEANN SEA 11/23 [address] [facility] Outpatient Encounter [id number] [id number] 11/23 [facility] HC PRO PHONE CALL 5-10 MIN [id number] [id number] Diagnos is: ICD-10- CM Z71.89 Other specifi ed quitline counselor ing ALEX BECK 11/29 [facility] [place] [facility] CASE MANAGEMENT [id number] [id number] Diagnos is: ICD-10- CM Z59.89 Other problem s related to housing and economi c circums tances GREEN,LEANN SEA 11/[address] [facility] [place] [facility] CASE MANAGEMENT [id number] [id number] Diagnos is: ICD-10- CM Z59.89 Other problem s related to housing and economi c circums tances GREEN,LEANN SEA 12/[address] [facility] Outpatient Encounter [id number] [id number] 12/05 [facility] [place] [facility] Encounter [id number] [id number] 12/[address] [facility] [place] [facility] Outpatient Encounter [id number] [id number] 12/[address] [facility] Outpatient Encounter [id number] 12/07 [facility] Outpatient Encounter [id number] [id number] 12/08 [facility] Outpatient Encounter [id number] [id number] 12/08 [facility] En[facility] [id number] [id number] 12/[address] [facility] Outpatient Encounter [id number] [id number] 12/11 [facility] Outpatient Encounter [id number] 12/13 [facility] Outpatient Encounter [id number] [id number] 12/14 [facility] PSYTX W PT 30 MINUTES [id number] [id number] Diagnos is: ICD-10- CM F10.20 Alcohol depende nce, uncompl icated MARIE CLAROS 12/15 [facility] En[facility] [id number] [id number] 12/22 [facility] OFFICE O/P EST MOD 30 MIN [id number] [id number] Diagnos is: ICD-10- CM F10.20 Alcohol depende nce, uncompl icated MAIRA,AN NA TRIXIE E 12/22 [facility] EMERGENCY DEPT VISIT [facility] [id number] [id number] Diagnos is: ICD-10- CM F10.20 Alcohol depende nce, uncompl icated MUDALLAL,O MAR 12/22 [facility] EMERGENCY DEPT VISIT [facility] [id number] [id number] Diagnos is: ICD-10- CM F10.20 Alcohol depende nce, uncompl icated MUDALLAL,O SEP 0601/08 [facility] Detoxifica tion Services for Substance Abuse Treatment [id number] [id number] Admit Reason: ALCOHOL DETOXIF ICATION KUSHAL GUNN SIR 12/22 [facility] Inpatient Encounter [id number] [id number] SUSI APPIAH HELLE E 12/23 [facility] Inpatient Encounter [id number] [id number] SUSI APPIAH HELLE E 12/23 [facility] Inpatient Encounter [id number] [id number] SUSI APPIAH HELLE E 12/23 [facility] Inpatient Encounter [id number] [id number] SUSI APPIAH HELFLORIAN E 12/23 [facility] Inpatient Encounter [id number] [id number] SCOTT SALES L 12/23 [facility] Inpatient Encounter [id number]. [id number] SCOTT SALES L 12/23 [facility] PSYCH DIAG EVAL W/MED SRVCS [id number] [id number] Diagnos is: ICD-10- CM F10.20 Alcohol depende nce, uncompl icated Dick VILLARREAL 12/23 [facility] HOSP IP/OBS DSCHRG MGMT >30 [id number]. [id number] Diagnos is: ICD-10- CM F10.20 Alcohol depende nce, uncompl icated LAKIA CHASE 12/23 [facility] N [facility] Inpatient Encounter [id number] 522 ULYSSESSUSI HELLE 12/23 [facility] [place] [facility] CASE MANAGEMENT [id number] Diagnos is: ICD-10- CM Z59.89 Other problem s related to housing and economi c LEANN Leal 12/[address] [facility] Outpatient Encounter [id number] [id number] 12/27 [facility] [place] [facility] CASE MANAGEMENT [id number] Diagnos is: ICD-10- CM Z59.89 Other problem s related to housing and economi c circums LEANN Tsai SEA 01/01 [address] [facility] CASE MANAGEMENT [id number] Diagnos is: ICD-10- CM Z59.89 Other problem s related to housing and economi c circums LEANN Tsai SEA 01/02 [address] [facility] HC PRO PHONE CALL 11-20 MIN [id number] [id number] Diagnos is: ICD-10- CM F10.20 Alcohol depende nce, uncompl icated MONETKapilREN GUCCI BOB 01/02 [facility] Outpatient Encounter [id number] [id number] 01/02 [facility] Outpatient Encounter [id number] [id number] REN PERYERA 01/02 [facility] Outpatient Encounter [id number] [id number] Diagnos is: ICD-10- CM F10.20 Alcohol depende nce, uncompl icated MICHAEL SUAZO 01/03 [facility] Outpatient Encounter [id number] [id number] Ish TIAN 01/03 [facility] PSYTX W PT 30 MINUTES [id number] [id number] Diagnos is: ICD-10- CM F31.81 Bipolar II disorde r Ish TIAN 01/03 [facility] Outpatient Encounter [id number] [id number] 01/03 [facility] Outpatient Encounter [id number]. [id number] 01/03 [facility] N [facility] Outpatient Encounter [id number] JAYLANIsh OSWALDO 01/05 [facility] Outpatient Encounter [id number] JAYLANIsh CHACON 01/08 [facility] PSYTX W PT 60 MINUTES [id number]. [id number] Diagnos is: ICD-10- CM F10.239 Alcohol depende nce with withdra brenna, unspeci fied Ish TIAN 01/09 [facility] Outpatient Encounter [id number] 01/09 [facility] CASE MANAGEMENT [id number] Diagnos is: ICD-10- CM Z59.89 Other problem s related to housing and economi c circums LEANN Tsai 01/12 [address] [facility] HC PRO PHONE CALL 11-20 MIN [id number]. [id number] Diagnos is: ICD-10- CM F10.20 Alcohol depende nce, uncompl icated REN PEREYRA 01/15 [facility] Outpatient Encounter [id number] [id number] 01/15 [facility] Outpatient Encounter [id number] REN PEREYRA LISBETH 01/15 [facility] OFFICE O/P EST MOD 30 MIN [id number] [id number] Diagnos is: ICD-10- CM F43.10 Post-tr aumatic stress disorde r, unspeci JEROMY Dorantes TRIXIE E 02/02 [facility] Outpatient Encounter [id number] [id number] 02/20 [facility] Outpatient Encounter [id number] [id number] 03/07 [facility] [place] [facility] CASE MANAGEMENT [id number] [id number] Diagnos is: ICD-10- CM Z59.89 Other problem s related to housing and economi c circums taneverardo GREEN,LEANN SEA 03/09 [address] [facility] Outpatient Encounter [id number] [id number] GREEN,LEANN SEA 03/09 [facility] Outpatient Encounter [id number] [id number] GREEN,LEANN SEA 03/09 [facility] OFFICE O/P EST MOD 30 MIN [id number] [id number] Diagnos is: ICD-10- CM F43.10 Post-tr aumatic stress disorde r, unspeci JEROMY Dorantes NA TRIXIE E 03/22 [facility] Outpatient Encounter [id number] [id number] 03/27 [facility] Outpatient Encounter [id number] [id number] JAYLANIsh CHACON 03/27 [facility] QNHP OL DIG ASSMT&MGMT 5-10 [id number] Diagnos is: ICD-10- CM F43.10 Post-tr aumatic stress disorde r, unspeci fied AKASHBELLA RONALD S 03/27 [facility] HC PRO PHONE CALL 11-20 MIN [id number] Diagnos is: ICD-10- CM F10.220 Alcohol depende nce with intoxic ation, uncompl icated JAYLANIsh [place] 03/27 [facility] Outpatient Encounter [id number] 04/01 [facility] CRISIS INTERVEN SVC, 15 MIN [id number] Diagnos is: ICD-10- CM F43.12 Post-tr aumatic stress disorde r, chronic O'JO,CO LLEEN E 04/01 [facility] HLTH BHV ASSMT/REAS SESSMENT [id number] Diagnos is: ICD-10- CM Z78.9 Other specifi ed health status MORE LOPEZ 04/03 [facility] Outpatient Encounter [id number] MARIE CLAROS 04/04 [facility] Outpatient Encounter [id number] 04/04 [facility] Outpatient Encounter [id number] 04/05 [facility] Outpatient Encounter [id number] JAYRO ANTONIO 04/06 [facility] Outpatient Encounter [id number] REN PEREYRA 04/06 [facility] HC PRO PHONE CALL 5-10 MIN [id number] Diagnos is: ICD-10- CM F10.20 Alcohol depende nce, uncompl icated REN PEREYRA 04/09 [facility] Outpatient Encounter [id number] REN PEREYRA 04/09 [facility] [address] [facility] CASE MANAGEMENT [id number] Diagnos is: ICD-10- CM Z59.89 Other problem s related to housing and economi c circums LEANN Tsai 04/[address] [facility] Outpatient Encounter [id number] 04/12 [facility] OFFICE O/P EST MOD 30 MIN [id number] Diagnos is: ICD-10- CM F43.10 Post-tr aumatic stress disorde r, unspeci fied JEROMY RAO 05/04 [facility] Outpatient Encounter [id number] 05/[address] [facility] Outpatient Encounter [id number] Ish TIAN 06/07 [facility] PRO PHONE CALL 11-20 MIN [id number] Diagnos is: ICD-10- CM F10.20 Alcohol depende nce, uncompl icated MARIE CLAROS 06/08 [facility] OFFICE O/P EST MOD 30 MIN [id number] Diagnos is: ICD-10- CM F43.10 Post-tr aumatic stress disorde r, unspeci JEROMY Dorantes 06/29 [facility] Outpatient Encounter [id number] Ish TIAN 07/25 [facility] PH1 ASSMT&MGMT NQHP 5-10 [id number] Diagnos is: ICD-10- CM F10.220 Alcohol depende nce with intoxic ation, uncompl icated Ish TIAN 07/25 [facility] SYNCH AUDIO-ONLY EST MOD 30 [id number] Diagnos is: ICD-10- CM F43.10 Post-tr aumatic stress disorde r, unspeci JEROMY Dorantes TRIXIE E 08/24 [facility] Outpatient Encounter [id number] 08/27 [facility] PSYTX W PT W E/M 30 MIN [id number] Diagnos is: ICD-10- CM F43.10 Post-tr aumatic stress disorde rtoby AN NA TRIXIE E 11/08 [facility] Outpatient Encounter [id number] 02/08 [facility] PSYTX W PT W E/M 30 MIN [id number] Diagnos is: ICD-10- CM F43.10 Post-tr aumatic stress disorde r, toby RAO,JEROMY TALAMANTES TRIXIE E 02/13 [facility] N Procedures Combined list of: 1) Procedures from Department of [facility] Affairs facilities going back up to thelast 18 months, not all [place] non-surgical procedures are included; 2) All procedures from the Department of Defense facilities. Procedure Procedure Type Code Date Perfomer Comments Sourc e VARICELLA VIRUS VACCINE (LESLYE), LIVE, FOR SUBCUTANEOUS USE [facility] RE-EVAL,ATHLETIC TRAINING ESTAB PLAN OF CARE REQ:ASSES,JULES FUNC STAT WHEN DOC CHANGE;REV PLAN OF CARE,STAND,ASSESS INSTR &/LINDY ASSESS,FUNC OUTCOME W UPDATE,20 MIN VQKT-JE-METE W THE PATIENT &/FAMILY [facility] FOOT, ARCH SUPPORT, REMOVABLE, PREMOLDED, LONGITUDINAL, EACH [facility] INFLUENZA VIRUS VACCINE, QUADRIVALENT (CCIIV4), DERIVED FROM CELL CULTURES, SUBUNIT, PRESERVATIVE AND ANTIBIOTIC FREE, 0.5 ML DOSAGE, FOR INTRAMUSCULAR USE [facility] FITTING OF SPECTACLES, EXCEPT FOR APHAKIA; MONOFOCAL [facility] EAR MOLD/INSERT, NOT DISPOSABLE, ANY TYPE [facility] TELE ASSESS & MGT SRV [...] 24 HR/SOON APT;5-10 MIN MED DIS 018 [facility] PSYCHOLOGICAL TSTING (INCL PSYCHODIAG ASSESSMNT, EMOTITY, INTELLECTUAL ABILITIES, PERSONALITY &PSYCHOPATHOLOGY, EG, MMPI), ADMINISTERED COMPUTER, W QUALIFIED HEALTH C.O.D. BILLER INTERPRET &RPT [facility] PSYCHIATRIC DIAGNOSTIC EVALUATION [facility] PSYCHIATRIC DIAGNOSTIC EVALUATION DoD TELE ASSESS & MGT SRV PROV QUAL NONPHYS HLTH CARE PRO TO EST PAT,PARENT,GUARD NOT ORIG REL ASSESS & MGT SRV PROV W/IN PREV 7 DAYS NOR LEAD ASSESS & MGT SRV/PX W/IN NXT 24 HR/SOON APT;5-10 MIN MED DIS [facility] AUDIOMETRIC TESTING OF GROUPS [facility] IMMUNIZATION ADMINISTRATION (INCLUDES PERCUTANEOUS, INTRADERMAL, SUBCUTANEOUS, OR INTRAMUSCULAR INJECTIONS); 1 VACCINE (SINGLE OR COMBINATION VACCINE/TOXOID) [facility] Audiometry Group Testing Audiometry Group Testing 53825 MANUEL BASURTO [facility] Venipuncture Venipuncture 35061 YESSENIA LEE [facility] RBC G6PD Screening RBC G6PD Screening 88065 02/02 YESSENIA LEE [facility] Td Vaccine Seven Years Of Age And Above Preservative Free Td Vaccine Seven Years Of Age And Above Preservative Free 67608 YESSENIA LEE DoD Immunization Administration Each Additional Vaccine Immunization Administration Each Additional Vaccine 90560 YESSENIA LEE DoD Immunization Administration One Vaccine Immunization Administration One Vaccine 27947 YESSENIA LEE [facility] Preventive Med Standardized Depre ion Screening: Negative For Symptoms Preventive Med Standardized Depression Screening: Negative For Symptoms [id number] YESSENIA LEE During a ygvt-tv-rbyt encounter, I personally reviewed the responses given on the PHQ8 or the SAT by the individual [facility] 7[facility] which were recorded by the individual on the [facility] website or the required hardcopy SAT. [facility] Non-Physician Phone Call To Patient/Provider Brief (5-10min) Non-Physician Phone Call To Patient/Provider Brief (5-10min) 21109 018 SARA MACK [facility] Psychologic Testing And Report Administered By Computer Psychologic Testing And Report Administered By Computer [id number] 018 KEVIN CATES [facility] Non-Physician Phone Call To Patient/Provider Brief (5-10min) Non-Physician Phone Call To Patient/Provider Brief (5-10min) 04149 018 SARA MACK [facility] Vaccines Viral Varicella (Active) Vaccines Viral Varicella (Active) 91673 018 [facility] Immunization Administration One Vaccine Immunization Administration One Vaccine 16701 018 [facility] Immunization Administration Each Additional Vaccine Immunization Administration Each Additional Vaccine 88923 018 [facility] Athletic Training Re-evaluation Athletic Training Re-evaluation 44496 018 CIARA KEMP [facility] Exercises A isted Exercises For ROM Exercises Assisted Exercises For ROM 86464 018 CIARA KEMP [facility] Foot, arch support, removable, premolded, longitudinal, each 018 VIRIDIANAICARA [facility] Physical Therapy Education Orthotics Training Physical Therapy Education Orthotics Training 15079 018 CIARA KEMP IVONNE [facility] Vaccines Viral Varicella (Active) Vaccines Viral Varicella (Active) 52130 018 [facility] Immunization Admin Intranasal / Oral Each Additional Vaccine Immunization Admin Intranasal / Oral Each Additional Vaccine 63854 018 [facility] Vaccines Adenovirus Type 4 Live, For Oral Use Vaccines Adenovirus Type 4 Live, For Oral Use 19663 018 [facility] Vaccines Adenovirus Type 7 Live, For Oral Use Vaccines Adenovirus Type 7 Live, For Oral Use 71781 018 [facility] Immunization Administration Each Additional Vaccine Immunization Administration Each Additional Vaccine 13403 018 [facility] Vaccines Viral Polio, Inactivated (Salk) Vaccines Viral Polio, Inactivated (Salk) 59840 018 MESHA GOMEZ [facility] Tdap Vaccine Tdap Vaccine 15160 MESHA GOMEZ [facility] Immunization Administration One Vaccine Immunization Administration One Vaccine 78363 MESHA GOMEZ [facility] Determination Of Refractive State Determination Of Refractive State 03396 018 VLAD CHEATHAM [facility] Spectacles Services Fitting Monofocals (Not For Aphakia) [employer] [facility] Fitting Monofocals (Not For Aphakia) 31949 018 VLAD CHEATHAM [facility] Ophthalmological New Patient Start Intermediate Level Care Ophthalmological New Patient Start Intermediate Level Care 64535 018 VLAD CHEATHAM [facility] Non-Physician Phone Call To Patient/Provider Brief (5-10min) Non-Physician Phone Call To Patient/Provider Brief (5-10min) 60108 REY MAN [facility] Psychiatric Evaluation Psychiatric Evaluation 80435 ALYCIA MCGUIRE [facility] Psychiatric Therapy Preparation of Psychiatric Status Report Psychiatric Therapy Preparation of Psychiatric Status Report 94997 ALYCIA MCGUIRE [facility] Social History Combined list of available smoking, tobacco, and other social history from Department of Defense and Veterans Affairs facilities. Social History Type Response Date Comment Sour e This section is an empty social history section. DoD
--- OUTSIDE RECORDS SUMMARY | 2025-02-16 16:19 | XMS_ITS | Clinical Summary ---
Author Organization [facility] Address [address] [place] [address] Care Team Providers Care Hyster Driver Name Role Phone Morgan Turner MD Primary Care Provider [phone] Ashish Morrow MD Unavailable [phone] Allergies Active Allergy Reactions Criticality Noted Date Comments Permethrin Hives Medium 08/08/2024 [place] odor spray cashmere rodas Levonorgestrel-Ethinyl Estrad Vomiting [...] times a day 180 tablet [address] (CAMPRAL) 333 mg EC [...] day 60 tablet 2 5 025 Active naltrexone microspheres (VIVITROL) 380 mg suspension,extende d rel reconIndications:A lcohol dependence with uncomplicated intoxication (HCC) Inject 380 mg into the muscle as instructed every 30 (thirty) days 1.2 each 6 5 026 Active Hospital, Clinic, or Other Facility Administered [...] b.i.d. Assessment & Plan (08/20/2024 4:15 PM CLOUD SYSTEMS ADMINISTRATOR): Stable, generally well controlled, occasional episodes, generally gets relief on own Continue pantoprazole 40 mg b.i.d.; encourage avoidance of inciting substances including alcohol Hematemesis with nausea 06/08/2024 Upper GI bleed 06/07/2024 Chronic alcoholic gastritis 04/12/2024 Assessment & Plan (08/30/2024 4:37 PM CLOUD SYSTEMS ADMINISTRATOR): Not well controlled; continues to have some abdominal pain, nausea, decreased appetite well drinking alcohol Encourage alcohol cessation Continue pantoprazole 40 mg b.i.d. Assessment & Plan (07/23/2024 11:09 AM CLOUD SYSTEMS ADMINISTRATOR): Currently on pantoprazole. EGD scheduled in the summer. Assessment & Plan (07/17/2024 4:44 PM CLOUD SYSTEMS ADMINISTRATOR): Stable, well controlled; no current stomach pain, [...] 01/18/2024 Assessment & Plan (08/30/2024 4:36 PM CLOUD SYSTEMS ADMINISTRATOR): Stable, well controlled; [facility]; continue quetiapine 25 mg nightly Assessment & Plan (08/20/2024 4:14 PM CLOUD SYSTEMS ADMINISTRATOR): Stable, generally well controlled, no recent episodes [...] follow with counseling and psychiatry services through [facility] Major depressive disorder, single episode, unspe cified 01/18/2024 Assessment & Plan (11/15/2024 6:06 PM CDT): Generally well controlled, patient reports she is in a better mood; is in regular contact with her significant other Follows with psychiatry in individual counseling through the [facility] Assessment & Plan (10/15/2024 2:51 PM CDT): Stable, follows with psychiatry at the [facility] for management Continue Seroquel 25 mg nightly, continue engagement with individual therapy Assessment & Plan (04/12/2024 3:12 PM CDT): Stable, generally well controlled, in general good mood Follows with psychiatry with [facility] Continue quetiapine 25 mg daily, Librium 25 mg, hydroxyzine 50 mg p.r.n. 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 Encouraged working [...] gastritis Assessment & Plan (08/30/2024 4:36 PM CLOUD SYSTEMS ADMINISTRATOR): Not well controlled; patient reports drinking about [...] withdrawal Assessment & Plan (08/20/2024 4:14 PM CLOUD SYSTEMS ADMINISTRATOR): Not well controlled, not currently drinking, but has had severe cravings, patient has multiple episodes episodic binge drinking Patient had generally has good relief with the medication Continue Vivitrol every 30 days; acamprosate 666 mg t.i.d. Assessment & Plan (07/23/2024 11:11 AM CLOUD SYSTEMS ADMINISTRATOR): Will proceed to [facility] ED for Vivitrol injection today. Will return for her follow-up appointment in 10 days with PCP. Encouragement provided. Safety reviewed. Assessment & Plan (07/17/2024 4:43 PM CLOUD SYSTEMS ADMINISTRATOR): Stable, improving; no alcohol since last visit; due for injection on July 15, but would like to delay in order to allow for some alcohol use Discourage delay; would continue naltrexone monthly; add acamprosate 2 tablets t.i.d. Assessment & Plan (06/07/2024 4:51 PM CLOUD SYSTEMS ADMINISTRATOR): Not well controlled, can had recent relapse, [...] doing better at this time; engaged with motorcoach operator; discussion with Peer bulk gas specialist today Encouraged continued work towards complete [...] Encounters Date Type Department Care Team Description 02/13/2025 Telephone [facility] [address] [address] Morgan Turner MD 01/14/2025 1:15 PM CDT Clinical Support [facility] [address] [address] 01/14/2025 Telephone [facility] [address] [address] Morgan Turner MD 01/08/2025 Telephone [facility] [address] [address] Morgan Turner MD 12/14/2024 Nurse Triage [facility] [address] [address] Morgan Turner MD 12/11/2024 9:15 AM CDT Clinical Support [facility] [address] [phone] Alcohol dependence with uncomplicated intoxication (HCC) (Primary Dx) 12/11/2024 Telephone [facility] [address] [address] Morgan Turner MD Med Refill 12/11/2024 Telephone [facility] [address] [address] Nena Souza MA Vivitrol Injection Re-Order 12/10/2024 Telephone [facility] [address] [address] Morgan Turner MD Medical Question/Miscellane ous 12/10/2024 Telephone [facility] G[facility] at [address] [place] [address] [place] 11/30/2024 Telephone [facility] G[facility] at [address] [place] [address] Hailey Arango EGLandy Appointment 11/29/2024 Telephone [facility] [address] [address] Morgan Turner MD Vivitrol Injection from Last 3 Months Immunizations Immunization [...] e alcohol) Pint of alcohol a day [facility] Utilities Answer Date Recorded In the past 12 months has [employer], gas, oil, or water company threatened to shut off services in your home? No 07/25/2024 Social Connection and Isolation Panel Answer Date Recorded In a typical week, how many times do you talk on the phone with family, friends, or neighbors? More than three times a week 07/25/2024 How often do you get togethe r with friends or relatives? Three times a week 07/25/2024 How often do you attend [facility] or congregation services? Never 07/25/2024 Do you belong to any clubs o r organizations such as yazidism groups, unions, fraternal or athletic groups, or [...] any time in the past 12 m [facility], were you homeless or living [...] on file Legal Sex Female 6:50 PM CLOUD SYSTEMS ADMINISTRATOR Gender Identity Not on file Sexual Orientation [...] Description 03/05/2025 1:00 PM CDT Hospital Encounter [address] [address] Ashish Morrow MD [address] [facility] [place] [address] 03/05/2025 1:00 PM CDT - 03/05/2025 1:30 PM CDT Surgery [address] [address] Ashish Morrow MD [address] [facility] [place] [address] ESOPHAGOGASTRODUODENOSCOPY Scheduled Procedures Name Priority Associated Diagnoses [...] Advance Directives For more information, please contact: [phone] * Full Code (Latest Code Status on File) Date Activated Date Inactivated Comments 06/09/2024 9:37 AM 06/09/2024 7:14 PM * Full Code Date Activated Date Inactivated Comments 06/08/2024 3:33 AM 06/09/2024 9:37 AM * Full Code Date Activated Date Inactivated Comments 01/11/2024 7:42 AM 01/13/2024 6:46 PM Care Teams Hyster Driver Relationship Specialty Start Date End Date Morgan Turner MD [address] [place] [address] PCP - General Family Medicine 01/18/24 Ashish Morrow MD [address] [place] [address] [place] [address] Consulting Physician Gastroenterology 06/09/24
--- OUTSIDE RECORDS SUMMARY | 2025-02-16 16:19 | XMS_ITS | Encounter Summary ---
Author Organization [facility] Healthcare Address [address] [place] [address] Care Team Providers Care Sustainability Executive Director Name Role Phone Morgan Turner MD Primary Care Provider [phone] Ashish Morrow MD Unavailable [phone] Loida AburtoW Unavailable [phone] Encounter Details Date Type Department Care Team (Late st Contact Info) Description 07/25/2024 Telephone [facility] [address] [facility] [place] [address] Morgan Turner MD [address] [place] [address] Social History Tobacco Use Types Packs/Day Years Used Date Smoking Tobacco: Every Day Vaping Alcohol Use Standard Drinks/Week Comments Yes 0 (1 standard drink = 0.6 oz pur e alcohol) Pint of alcohol a day [facility] Utilities Answer Date Recorded In the past 12 months has [employer], gas, oil, or water company threatened [...] week 07/25/2024 How often do you attend [facility] or yazdanism services? Never 07/25/2024 Do you belong to any clubs o r organizations such as yarsani groups, unions, fraternal or athletic groups, or [...] were you homeless or living in a half-way (including now)? No 07/25/2024 Personal Safety Answer [...] on file Legal Sex Female 6:50 PM PRINCIPAL SCIENTIST Gender Identity Not on file Sexual Orientation Not on file documented as of this encounter Miscellaneous Notes * Telephone Encounter - Bridget Geiger - 07/25/2024 9:07 AM CST CIPAL SCIENTIST documented in this encounter Plan of Treatment Upcoming Encounters Date Type Department Care Team (Latest Contact Info) Description 03/05/2025 1:00 PM CDT Hospital Encounter [address] [address] Ashish Morrow MD [address] [place] [address] [place] [address] 03/05/2025 1:00 PM CDT - 03/05/2025 1:30 PM CDT Surgery [address] [address] Ashish Morrow MD [address] [place] [address] [place] [address] ESOPHAGOGASTRODUODENOSCOPY Scheduled Procedures Name Priority Associated Diagnoses Date/Ti me ESOPHAGOGASTRODUODENOSCOPY Erosive esophagitis 03/05/2025 1:00 PM CDT documented as of this encounter Visit Diagnoses Not on filedocumented in this encounter Care Teams Sustainability Executive Director Relationship Specialty Start Date End Date Morgan Turner MD [address] [place] [address] PCP - General Family Medicine 01/18/24 Ashish Morrow MD [address] [place] [address] [place] [address] Consulting Physician Gastroenterology 06/09/24 Loida Aburto, [address] [place] [address] Graduate School Dean 07/25/24 09/06/24 documented as of this encounter
[2025-02-16 16:22] LABS: Add Urine Microscopic? YES; Appearance Urine Clear (Clear); Glucose Urine UA Negative (Negative); Leukocyte Esterase Ur Negative LEU/UL (Negative); Nitrate Urine Negative (Negative); Non Pathogenic Casts 0-2; Specific Grav Ur 1.020 (1.001-1.035)
[2025-02-16 16:27] LABS: Creatine Kinase 80 U/L (30-135)
[2025-02-16 16:31] LABS: INR 1.1; Prothrombin Time 14.2 Seconds (11.1-14.7)
[2025-02-16 16:33] LABS: Cannabinoid Screen Urine Positive (Negative)
[2025-02-16 16:41] LABS: Alanine Aminotransferase 24 U/L (6-35); Albumin Level 5.0 g/dL (3.5-5.1); Alkaline Phosphatase 76 U/L (38-126); Aspartate Amino Transferase 38 U/L (14-36); Bilirubin,Total 0.5 mg/dL (0.2-1.3); Blood Urea Nitrogen 9 mg/dL (7-17); Calcium 9.8 mg/dL (8.4-10.2); Carbon Dioxide < 5 mmol/L (22-30); Chloride 108 mmol/L (98-107); Estimated CRCL calculation 95 ml/min; Estimated Glomerular Filt Rate > 60; Glucose 52 mg/dL (65-110); Lipase 49 U/L (23-300); Potassium 3.6 mmol/L (3.4-5.0); Sodium 138 mmol/L (137-145); Total Protein 8.9 g/dL (6.3-8.2)
[2025-02-16 16:42] LABS: Band Neutrophils Percent 0 % (0-6); Microcytosis 2+ (NORMAL); Schistocytes None Seen
[2025-02-16 16:43] LABS: Anisocytosis 2+; Hypochromasia 1+
[2025-02-16] MEDS: DEXTROSE 10% 1,000 ML 100 ML IV CONT (16:52)
--- NOTE | 2025-02-16 17:58 | P.HP_ITS ---
H&P: HPI History of Present Illness Date/Time: 02/16/25 17:58 Chief Complaint: Nausea vomit Narrative: 29-year-old female past medical history of alcohol abuse on vivtrol monthly injection, PTSD, presents the hospital for nausea vomiting. Patient states that she takes monthly injections of vivtrol. With helps her with alcohol cessation however normally she takes her monthly injections late so she can go binge drinking. She states that over the last day and half she cut down from a gal of hard liquor a day to less than 1/5th. She states that each time she does this she drinks less than was. Patient states that she does not feel like she is going through alcohol withdrawals at this time. Lab work in the ED shows hemoglobin of 11.5, ABG with pH of 7.35, CO2 of 28, PO2 of 103, bicarb of 15, chloride of 108, carbon dioxide less than 5, glucose of 52, lactic acid of 2.3, phosphorus of 2.3, AST of 38, UA appears to be noninfective. Urinary tox positive for cannabinoids, ethanol level 45. in the ED patient received several amps of dextrose and was placed on D10 drip due to severe hypoglycemia. Review of Systems Review of Systems: 12 systems were reviewed and are negativ e except for as per HPI. [facility] Past Medical History Medical History (Updated 02/17/25 @ 00:22 by Geni Stanford APRN) Alcohol abuse PTSD (post-traumatic stress disorder) Alcoholism Social History Social History Smoking packs per day: 1 Smoking cigarettes per day: 20.0 Years smoked: 15 Smoking pack-years: 15.00 Smoking status: Former smoker Tobacco type: cigarettes and e-cigarettes/vaping Alcohol intake: current Drinks per week: 30 Substance use: current Substance use type: marijuana Other substance usage details: Pt drinks 1/5 monthly prior to Vivitrol injection. Last use: 02/16/25 Do You Feel Safe in your Home?: Yes Lack of Transportation: YES Lack of Food: Often True Current Housing: I Have Housing Concerned About Future Housing: No Difficulty Paying Gas/Electric Bills: No Difficulty Paying for Meds: No Currently Unemployed: No Education: Trade/Vocational Certificate Difficulty w/ Childcare or Family Care: No Living arrangements: alone Occupation/Education: unemployed Sexual Orientation (if Verbalized by the Patient): Lesbian, Gordon, or Homosexual Spiritual care concerns: No Meds Home Medications and Allergies Home Medications ?Medication ?Instructions ?Recorded ?Confirmed ?Type folic acid 1 mg tablet 1 mg PO DAILY #30 tabs 11/19/23 02/16/25 Rx naltrexone microspheres 380 mg 380 mg IM MONTHLY 01/14/25 02/16/25 History intramuscular suspension,extended release (Vivitrol) acamprosate 333 mg tablet,delayed 666 mg PO TID 02/16/25 02/16/25 History release hydroxyzine HCl 50 mg tablet 50 mg PO TID PRN anxiety 02/16/25 02/16/25 History pantoprazole 40 mg tablet,delayed 40 mg PO Q12H 02/16/25 02/16/25 History release thiamine HCl (vitamin B1) 100 mg 100 mg PO DAILY 02/16/25 02/16/25 History tablet (Vitamin B-1) Allergies Allergy/AdvReac Type Severity Reaction Status Date / Time No Known Allergies Allergy Verified 02/16/25 21:51 Vital Signs Vital Signs - 24 hr 02/16/25 15:36 02/16/25 16:12 02/16/25 16:57 Temperature 98.0 F Pulse Rate 88 110 H 92 Respiratory Rate 12 22 H 18 Blood Pressure 93/74 L 112/85 93/59 L Pulse Oximetry 100 100 99 Oxygen Delivery Room Air 02/16/25 17:37 Temperature Pulse Rate 101 H Respiratory Rate 18 Blood Pressure 92/58 L Pulse Oximetry 100 Oxygen Delivery Exam Narrative: General: well appearing, appears stated age. HEENT: normocephalic, atraumatic. Mucous membranes moist. EOMI, PERRLA, bilateral sclera anicteric, no conjunctival injection. Neck supple without JVD, lymphadenopathy, or bruit. Respiratory: clear to ascultation bilaterally. No rales/rhonic/wheezes. Cardiovascular: Regular rate and rhythm, normal S1-S2 upon ascultation. No murmurs, rubs, or clicks. PMI is nondisplaced, capillary refill less than 3 second. Abdomen: Soft, round, no pulsatile masses, nondistended and nontender. No rebound, no guarding. No CVA tenderness, no hepatosplenomegaly. Bowel sounds present to all four quadrants. No high pitch or tinkling sounds, resonant to percussion. Extremities: No cyanosis, clubbing, or edema present. Pulses are palpable 2/2. Active ROM to all four extremities. No obvious tremors Neuro: Alert and orientated x 4. PERRLA. Cranial nerves 2-12 intact without focal deficit. Skin: Warm, dry, and intact, without rash, erythema, or lesion. Psych: Pleasant H&P: Results Labs Labs: Short CBC 02/16/25 Range/Units 16:03 WBC 7.8 (4.5-10.0) K/mm3 Hgb 11.5 L (12.0-15.0) g/dL Hct 37.3 (37.0-47.0) % Plt Count 283 (150-375) k/mm3 BMP 02/16/25 16:03 Sodium 138 Potassium 3.6 Chloride 108 H Carbon Dioxide < 5 L BUN 9 Creatinine 0.76 Glucose 52 L* Calcium 9.8 Cardiac Enzymes 02/16/25 Range/Units 16:03 Total Creatine Kinase 80 (30-135) U/L Liver Function 02/16/25 Range/Units 16:03 Total Bilirubin 0.5 (0.2-1.3) mg/dL AST 38 H (14-36) U/L ALT 24 (6-35) U/L Alkaline Phosphatase 76 (38-126) U/L Albumin 5.0 (3.5-5.1) g/dL Urine 02/16/25 Range/Units 16:03 Urine Color Yellow (Yellow) Urine Appearance Clear (Clear) Urine pH 5.0 (5.0-9.0) Ur Specific [place] 1.020 (1.001-1.035) Urine Protein Trace (Negative) mg/dL Urine Glucose (UA) Negative (Negative) mg/dL Assessment and Plan Assessment and plan (1) Alcoholic ketoacidosis: Code(s): E87.29 - Other acidosis Status: Acute Assessment and Plan: Alcoholic ketoacidosis versus starvation Lactic acidosis resolved IVF for hydration D10 drip Currently NPO due to acute nausea and vomiting Dietary consulted (2) Hypoglycemia: Code(s): E16.2 - Hypoglycemia, unspecified Status: Acute Assessment and Plan: Hemoglobin A1c pending D10 drip Hypoglycemia protocol Q.6 hours Accu-Cheks (3) Alcoholic: Code(s): F10.20 - Alcohol dependence, uncomplicated Status: Acute Assessment and Plan: Seizure precautions Telemetry monitoring Alcohol withdrawal protocol Recommend following up with provider upon discharge for acamprosate and vivitrol (4) Hypophosphatemia: Code(s): E83.39 - Other disorders of phosphorus metabolism Status: Acute Assessment and Plan: Replete as needed BMP in the morning (5) PTSD (post-traumatic stress disorder): Code(s): F43.10 - Post-traumatic stress disorder, unspecified Status: Acute Assessment and Plan: academic support specialist trauma Seroquel 50 mg Atarax Patient states that she has no plans to hurt herself or staff members. Quality VTE Prophylaxis VTE prophylaxis: mechanical ordered Hospitalist MIPS Advance Care Plan I have confirmed that the patient's Advanced Care Plan is present, code status is documented, or surrogate decision maker is listed in patient medical record.: Yes Medication Reconciliation I have utilized all available resources to obtain, update and review the patients current medications (includes all prescriptions, OTC, herbals, cannabis, and nutritional supplements).: Yes
[2025-02-16 18:13] LABS: Alveolar/Arterial O2 Gradient 11.3 mmHg; Fractional Inspired Oxygen 21 %; HCO3 ABG 15.8 mEq/l (22.0-26.0); Modified Allen's Test Pass; Oxygen Content ABG 14.9 %vol (16.0-22.0); Oxygen Saturation ABG 97.6 % (95.0-100.0); PCO2 ABG 28.8 mmHg (35.0-45.0); PO2 ABG 103.9 mmHg (80.0-100.0); PO2 FiO2 Ratio Arterial Blood 4.95 %; Site Drawn RIGHT RADIAL
[2025-02-16 18:50] LABS: Magnesium 1.7 mg/dL (1.6-2.3)
[2025-02-16] MEDS: SODIUM CHLORIDE 0.9% IV 1,000 ML 500 ML IV CONT (18:57)
[2025-02-16 19:05] LABS: Beta-Hydroxybutyrate/Acetoace. 0.06 mmol/L (0.02-0.27)
--- NOTE | 2025-02-16 21:21 | ADMGEN ---
This patient, Nguyen Saleh, was admitted to IMU Room 232-01 on 02/16/25 at 205. Patient/family oriented to hospital policies and general routines including ID bracelet, bed and alarms, visiting hours, pain management, procedures, bathroom and other care routines, personal items, smoking policy, room service/diet, and visiting hours. Information on how to activate the Rapid Response Team has been discussed. Patient/Family are encouraged to report perceived risks to care and to ask questions if they do not understand what they are told or what they should do.
[2025-02-17] VITALS (9 sets, daily range): BP systolic 103–138; BP diastolic 51–78; PULSE 65–85; RESP 18; TEMP 36.6–36.8; O2SAT 99–100
[2025-02-17] MEDS: POTASSIUM/PHOSPHORUS/SODIUM 1.5 GM PACKET 1 PACKET PO (01:30)
[2025-02-17] MEDS: DEXTROSE 10% 1,000 ML 100 ML IV CONT (03:56)
[2025-02-17 04:08] LABS: Hematocrit 30.7 % (37.0-47.0); Hemoglobin 9.5 g/dL (12.0-15.0); Immature Granulocyte Percent A 0.2 % (0-0.5); Lymphocytes Absolute Auto 2.52 K/mm3 (0.9-3.2); Mean Corpuscular HGB Conc 30.9 g/dl (32-36); Mean Corpuscular Hemoglobin 22.9 pg (26-34); Mean Corpuscular Volume 74.0 fl (80-100); Nucleated Red Blood Cells Absolute Auto 0.000 K/mm3 (0.0-0.012); Nucleated Red Blood Cells Perc 0.0 % (0.0-0.2); Platelet Count Result 191 k/mm3 (150-375); Red Blood Count 4.15 M/mm3 (4.2-5.4); White Blood Count 5.1 K/mm3 (4.5-10.0)
[2025-02-17 04:27] LABS: Hemoglobin A1C 5.1 % (<5.7)
[2025-02-17 04:30] LABS: Anion Gap 7 mmol/L (4-12); Blood Urea Nitrogen 5 mg/dL (7-17); Calcium 8.6 mg/dL (8.4-10.2); Carbon Dioxide 18 mmol/L (22-30); Chloride 110 mmol/L (98-107); Estimated CRCL calculation 112 ml/min; Estimated Glomerular Filt Rate > 60; Glucose 119 mg/dL (65-110); Potassium 3.7 mmol/L (3.4-5.0); Sodium 135 mmol/L (137-145)
--- NOTE | 2025-02-17 07:52 | PC.NURSE ---
This RN asked the patient if she was having any suicidal thoughts at this time. PT denies at this time. Adriana Heck RN also present.
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
[2025-02-17] MEDS: PANTOPRAZOLE 40 MG TABLET PO (08:49)
[2025-02-17] MEDS: THERAPEUTIC MULTIVITAMINS/MINERALS TAB (*BKC) 1 TABLET PO (08:49)
[2025-02-17] MEDS: THIAMINE HCL 100 MG TABLET PO (08:49)
[2025-02-17] MEDS: FOLIC ACID 1 MG TABLET PO (08:49)
--- NOTE | 2025-02-17 09:08 | PC.NURSE ---
02/17/25 at 0740-Bedside shift report done and Pt reported off to LASHAE Bolden. Pt questioned again in the presence of this RN and LASHAE Bolden. about any current suicidal or homicidal ideations, plans, etc. Pt denies and current thoughts or plans at this time.
[2025-02-17 09:41] LABS: Magnesium 1.8 mg/dL (1.6-2.3)
--- NOTE | 2025-02-17 13:15 | PM.DS ---
DS: Admitting Diagnosis Discharge Date 02/17/25 Admitting Diagnosis Nausea vomit DS: Summary Hospital Course Hospital Course: left AMA Time Spent with Patient Time attestation: Total time spent providing and/or coordinating discharge services: DS: Data Data Completed and Pending Labs on day of discharge: Labs from last 24 hours 02/17/25 02/17/25 02/17/25 11:15 04:02 03:57 WBC 5.1 RBC 4.15 L Hgb 9.5 L Hct 30.7 L MCV 74.0 L MCH 22.9 L MCHC 30.9 L RDW 15.4 H Plt Count 191 MPV 10.6 H Immature Gran % (Auto) 0.2 Neut % (Auto) 39.5 L Lymph % (Auto) 49.0 H [place] % (Auto) 7.8 Eos % (Auto) 2.9 Baso % (Auto) 0.6 Lymph # (Auto) 2.52 [place] # (Auto) 0.4 Eos # (Auto) 0.2 Baso # (Auto) 0.0 Abs Immat Gran (auto) 0.01 Absolute Neuts (auto) 2.0 Absolute Nucleated RBC 0.000 Band Neutrophils % Nucleated RBC % 0.0 Platelet Estimate Hypochromasia Anisocytosis Microcytosis Schistocytes PT INR Puncture Site ABG pH ABG pCO2 ABG pO2 ABG PO2/FiO2 Ratio ABG HCO3 ABG O2 Saturation ABG O2 Content ABG Base Excess A-a Gradient Oxyhemoglobin Total Hemoglobin O2 Delivery Device O2 Liters/Min FiO2 Sodium 135 L Potassium 3.7 Chloride 110 H Carbon Dioxide 18 L Anion Gap 7 BUN 5 L Creatinine 0.64 L Estim Creat Clear Calc 112 Estimated GFR > 60 Glucose 119 H POC Capillary Glucose 81 Hemoglobin A1c 5.1 Lactic Acid Calcium 8.6 Phosphorus Magnesium 1.8 Total Bilirubin AST ALT Alkaline Phosphatase Total Creatine Kinase Total Protein Albumin Lipase Beta-Hydroxybutyrate/Acetoacetate Urine Color Urine Appearance Urine pH Ur Specific [place] Urine Protein Urine Glucose (UA) Urine Ketones Ur Blood (Man) Urine Nitrate Urine Bilirubin Urine Urobilinogen Leukocyte Esterase Rfl Urine RBC Urine WBC Ur Squamous Epith Cells Urine Bacteria Urine Casts Urine Opiates Screen Urine Methadone Screen Ur Barbiturates Screen Ur Phencyclidine Scrn Ur Amphetamine Screen U Benzodiazepines Scrn Urine Cocaine Screen U Cannabinoids Screen Ethyl Alcohol 02/16/25 02/16/25 02/16/25 23:23 22:47 21:00 WBC RBC Hgb Hct MCV MCH MCHC RDW Plt Count MPV Immature Gran % (Auto) Neut % (Auto) Lymph % (Auto) [place] % (Auto) Eos % (Auto) Baso % (Auto) Lymph # (Auto) [place] # (Auto) Eos # (Auto) Baso # (Auto) Abs Immat Gran (auto) Absolute Neuts (auto) Absolute Nucleated RBC Band Neutrophils % Nucleated RBC % Platelet Estimate Hypochromasia Anisocytosis Microcytosis Schistocytes PT INR Puncture Site ABG pH ABG pCO2 ABG pO2 ABG PO2/FiO2 Ratio ABG HCO3 ABG O2 Saturation ABG O2 Content ABG Base Excess A-a Gradient Oxyhemoglobin Total Hemoglobin O2 Delivery Device O2 Liters/Min FiO2 Sodium Potassium Chloride Carbon Dioxide Anion Gap BUN Creatinine Estim Creat Clear Calc Estimated GFR Glucose POC Capillary Glucose 119 H 146 H Hemoglobin A1c Lactic Acid 1.5 Calcium Phosphorus Magnesium Total Bilirubin AST ALT Alkaline Phosphatase Total Creatine Kinase Total Protein Albumin Lipase Beta-Hydroxybutyrate/Acetoacetate Urine Color Urine Appearance Urine pH Ur Specific [place] Urine Protein Urine Glucose (UA) Urine Ketones Ur Blood (Man) Urine Nitrate Urine Bilirubin Urine Urobilinogen Leukocyte Esterase Rfl Urine RBC Urine WBC Ur Squamous Epith Cells Urine Bacteria Urine Casts Urine Opiates Screen Urine Methadone Screen Ur Barbiturates Screen Ur Phencyclidine Scrn Ur Amphetamine Screen U Benzodiazepines Scrn Urine Cocaine Screen U Cannabinoids Screen Ethyl Alcohol 02/16/25 02/16/25 02/16/25 19:02 18:27 18:10 WBC RBC Hgb Hct MCV MCH MCHC RDW Plt Count MPV Immature Gran % (Auto) Neut % (Auto) Lymph % (Auto) [place] % (Auto) Eos % (Auto) Baso % (Auto) Lymph # (Auto) [place] # (Auto) Eos # (Auto) Baso # (Auto) Abs Immat Gran (auto) Absolute Neuts (auto) Absolute Nucleated RBC Band Neutrophils % Nucleated RBC % Platelet Estimate Hypochromasia Anisocytosis Microcytosis Schistocytes PT INR Puncture Site Right radial ABG pH 7.357 ABG pCO2 28.8 L ABG pO2 103.9 H ABG PO2/FiO2 Ratio 4.95 ABG HCO3 15.8 L ABG O2 Saturation 97.6 ABG O2 Content 14.9 L ABG Base Excess -8.5 A-a Gradient 11.3 Oxyhemoglobin 97.1 Total Hemoglobin 10.8 L O2 Delivery Device Room air O2 Liters/Min Not Reportable FiO2 21 Sodium Potassium Chloride Carbon Dioxide Anion Gap BUN Creatinine Estim Creat Clear Calc Estimated GFR Glucose POC Capillary Glucose 66 Hemoglobin A1c Lactic Acid 2.3 H Calcium Phosphorus 2.3 L Magnesium 1.7 Total Bilirubin AST ALT Alkaline Phosphatase Total Creatine Kinase Total Protein Albumin Lipase Beta-Hydroxybutyrate/Acetoacetate 0.06 Urine Color Urine Appearance Urine pH Ur Specific [place] Urine Protein Urine Glucose (UA) Urine Ketones Ur Blood (Man) Urine Nitrate Urine Bilirubin Urine Urobilinogen Leukocyte Esterase Rfl Urine RBC Urine WBC Ur Squamous Epith Cells Urine Bacteria Urine Casts Urine Opiates Screen Urine Methadone Screen Ur Barbiturates Screen Ur Phencyclidine Scrn Ur Amphetamine Screen U Benzodiazepines Scrn Urine Cocaine Screen U Cannabinoids Screen Ethyl Alcohol 02/16/25 02/16/25 02/16/25 17:31 16:03 15:41 WBC 7.8 RBC 5.03 Hgb 11.5 L Hct 37.3 MCV 74.2 L MCH 22.9 L MCHC 30.8 L RDW 15.5 H Plt Count 283 MPV 11.8 H Immature Gran % (Auto) 0.3 Neut % (Auto) 79.5 H Lymph % (Auto) 16.0 L [place] % (Auto) 3.5 Eos % (Auto) 0.1 Baso % (Auto) 0.6 Lymph # (Auto) 1.25 [place] # (Auto) 0.3 Eos # (Auto) 0.0 Baso # (Auto) 0.1 Abs Immat Gran (auto) 0.02 Absolute Neuts (auto) 6.2 Absolute Nucleated RBC 0.000 Band Neutrophils % 0 Nucleated RBC % 0.0 Platelet Estimate Adequate Hypochromasia 1+ Anisocytosis 2+ Microcytosis 2+ Schistocytes None seen PT 14.2 INR 1.1 Puncture Site ABG pH ABG pCO2 ABG pO2 ABG PO2/FiO2 Ratio ABG HCO3 ABG O2 Saturation ABG O2 Content ABG Base Excess A-a Gradient Oxyhemoglobin Total Hemoglobin O2 Delivery Device O2 Liters/Min FiO2 Sodium 138 Potassium 3.6 Chloride 108 H Carbon Dioxide < 5 L Anion Gap BUN 9 Creatinine 0.76 Estim Creat Clear Calc 95 Estimated GFR > 60 Glucose 52 L* POC Capillary Glucose 116 H 46 L* Hemoglobin A1c Lactic Acid Calcium 9.8 Phosphorus Magnesium Total Bilirubin 0.5 AST 38 H ALT 24 Alkaline Phosphatase 76 Total Creatine Kinase 80 Total Protein 8.9 H Albumin 5.0 Lipase 49 Beta-Hydroxybutyrate/Acetoacetate Urine Color Yellow Urine Appearance Clear Urine pH 5.0 Ur Specific [place] 1.020 Urine Protein Trace Urine Glucose (UA) Negative Urine Ketones 3+ H Ur Blood (Man) 2+ H Urine Nitrate Negative Urine Bilirubin Negative Urine Urobilinogen 0.2 Leukocyte Esterase Rfl Negative Urine RBC 21-50 H Urine WBC 0-5 Ur Squamous Epith Cells None seen Urine Bacteria None seen Urine Casts 0-2 Urine Opiates Screen Negative Urine Methadone Screen Negative Ur Barbiturates Screen Negative Ur Phencyclidine Scrn Negative Ur Amphetamine Screen Negative U Benzodiazepines Scrn Negative Urine Cocaine Screen Negative U Cannabinoids Screen Positive A Ethyl Alcohol 45 Discharge Plan Discharge Consulting providers: Leonidas Flaherty; Stefano Brandt Patient Disposition: Left Against Medical Advice Patient Instructions: Multivitamins, Adult Formula (By mouth), Non-diabetic Hypoglycemia (DC), Alcohol Withdrawal (DC), Hypomagnesemia (DC) Patient Language: [place] Discharge Medications: No Action folic acid 1 mg tablet 1 mg PO DAILY Qty: 30 0RF thiamine HCl (vitamin B1) [Vitamin B-1] 100 mg tablet 100 mg PO DAILY acamprosate 333 mg tablet,delayed release (DR/EC) 666 mg PO TID hydroxyzine HCl 50 mg tablet 50 mg PO TID PRN (Reason: anxiety) pantoprazole 40 mg tablet,delayed release (DR/EC) 40 mg PO Q12H ondansetron 4 mg tablet,disintegrating 4 mg PO Q8H PRN (Reason: nausea and vomiting) Qty: 14 0RF metoclopramide HCl [Reglan] 10 mg tablet 10 mg PO Q6H PRN (Reason: nausea and vomiting) Qty: 14 0RF Vivitrol 380 mg suspension,extended rel recon 380 mg IM MONTHLY potassium chloride 20 mEq packet 20 meq PO DAILY Qty: 5 0RF Date of admission: 02/16/25 17:42 Primary Care Provider: JohnnyMorgan Admitting Provider: Hipolito Everett Attending physician on admission: Jose Francisco Bell Condition: Stable
== END 2025-02-17 12:40 | disposition left against medical advice (07) ==
LOC: ANHED 17:37 → ANHIMU 02-17 02:56
PROVIDERS: Nurse Practitioner Gerontology; Admitting Provider General Practice; Emergency Provider Emergency Medicine; PCP Hospitalist; Visit Provider Family Medicine
DX: E16.2 Hypoglycemia, unspecified (principal); R11.10 Vomiting, unspecified; F10.20 Alcohol dependence, uncomplicated; F12.10 Cannabis abuse, uncomplicated; F43.10 Post-traumatic stress disorder, unspecified; Z87.891 Personal history of nicotine dependence
CPT/HCPCS: 36415; 36600; 71045; 80048; 80053; 80307; 81001; 82010; 82077; 82550; 82805; 82948; 83036; 83605; 83690; 83735; 84100; 85018; 85025; 85610; 93005; 96361; 96365; 96366; 96374; 96375; 99285; A9270; G0378; G0379; J1200; J2405; J2765; J7030

== ENCOUNTER 2025-02-19 03:45 | Emergency (ER) | payer OTHER, SELFPAY ==
--- OUTSIDE RECORDS SUMMARY | 2025-02-18 09:34 | XMS_ITS | Continuity of Care Document ---
Author Name [facility] Organization [facility] Care Team Providers Care Clinical Support Tech Name Role Phone [facility] Unavailable Unavailable Problems Combined list of problems from Department of Defense and Veterans Affairs facilities. It does not include entries that were removed or entered in error. Problem Status Onset Date Problem Type Date of Resolution Comments Source Alcohol dependence, uncomplicated Active 8 Condition DoD Sprain of other ligament of right ankle Active 8 Condition [facility] Abnormal urine Active Condition [facility] Alcohol dependence Active Condition [facility] Chronic post-traumatic stress disorder Active Condition [facility] Housing instability Active Condition [facility] Mild bipolar disorder Active Condition [facility] Nicotine dependence Active Condition [facility] Posttraumatic stress disorder Active Condition [facility] Unsheltered homelessness Active Condition [facility] Diagnosis: ICD-10-CM F43.10 Post-traumatic stress disorder, unspecified Active Diagnosis [facility] Diagnosis: ICD-10-CM F10.220 Alcohol dependence with intoxication, uncomplicated Active Diagnosis [facility] Diagnosis: ICD-10-CM F10.20 Alcohol dependence, uncomplicated Active Diagnosis [facility] Diagnosis: ICD-10-CM Z59.89 Other problems related to housing and economic circumstances Active Diagnosis [facility] Diagnosis: ICD-10-CM Z78.9 Other specified health status Active Diagnosis [facility] Diagnosis: ICD-10-CM F43.12 Post-traumatic stress disorder, chronic Active Diagnosis [facility] Diagnosis: ICD-10-CM F10.239 Alcohol dependence with withdrawal, unspecified Active Diagnosis [facility] Diagnosis: ICD-10-CM F31.81 Bipolar II disorder Active Diagnosis [facility] Admit Reason: ALCOHOL DETOXIFICATION Active Diagnosis [facility] Diagnosis: ICD-10-CM Z71.89 Other specified counseling Active Diagnosis [facility] Diagnosis: ICD-10-CM Z59.9 Problem related to housing and economic circumstances, unsp Active Diagnosis [facility] Diagnosis: ICD-10-CM Z59.02 Unsheltered homelessness Active Diagnosis [facility] Diagnosis: ICD-10-CM F31.89 Other bipolar disorder Active Diagnosis [facility] Medications Combined list of outpatient [...] FOR ASSISTAN CE WITH DEPENDEN CY 01/23/2024 [id number] THA CHASE S 2023 5 [facility] CHLORDIAZEP OXIDE HCL 25MG CAP TAKE ONE CAPSULE BY MOUTH TWICE A DAY FOR 2 DAYS, THEN TAKE ONE CAPSULE ONCE A DAY FOR 1 DAY FOR ASSISTAN CE WITH DEPENDEN CY ORAL 01/23/2024 [id number] BRIGIDO CHASE 2023 5 [facility] HYDROXYZINE HCL 50MG TAB TAKE ONE TABLET BY MOUTH THREE TIMES A DAY NEEDED FOR ANXIETY *MAY CAUSE DROWSINE SS* ORAL ACTIVE 06/30/2025 [id number] Dick RAO 2024 270 [facility] HYDROXYZINE HCL 50MG TAB TAKE ONE TABLET BY MOUTH THREE TIMES A DAY NEEDED FOR ANXIETY *MAY CAUSE DROWSINE SS* ORAL DISCONT INUED 02/03/2025 [id number] Dick RAO 2023 270 [facility] NALTREXONE (EQV-REVIA) 50MG TAB TAKE ONE TABLET BY MOUTH ONCE A DAY FOR ASSISTAN CE WITH DEPENDEN CY ORAL 01/23/2024 [id number] BRIGIDO CHASEA S 2023 30 [facility] Naltrexone Hydrochlori de (ReVia Eq.) Tablet 50 mg Oral TAKE ONE TABLET BY MOUTH ONCE A DAY FOR ASSISTAN CE WITH DEPENDEN CY 01/23/2024 [id number] THA CHASE S 2023 30 [facility] Quetiapine (Seroquel Starter Pack) Tablet 25mg Oral TAKE ONE TABLET BY MOUTH AT BEDTIME 12/14/2024 [id number] NITISH RAO E 2023 30 [facility] QUETIAPINE FUMARATE 25MG TAB TAKE ONE TABLET BY MOUTH AT BEDTIME ORAL DISCONT INUED BY PROVIDE R 12/14/2024 [id number] Dick RAO E 2023 30 [facility] QUETIAPINE FUMARATE 50MG TAB TAKE ONE TABLET BY MOUTH AT BEDTIME FOR MOOD REGULATI ON ORAL ACTIVE 06/30/2025 [id number] 5 Dick RAO E 2024 90 [facility] QUETIAPINE FUMARATE 50MG TAB TAKE ONE TABLET BY MOUTH AT BEDTIME FOR MOOD REGULATI ON ORAL DISCONT INUED 02/03/2025 [id number] 4 Dick RAO E 2023 90 [facility] 100MG TAB TAKE ONE TABLET BY MOUTH ONCE A DAY FOR 10 DAYS FOR VITAMIN B1 SUPPLEME NTATION ORAL 01/23/2024 [id number] BRIGIDO CHASEA S 2023 10 [facility] Thiamine 100mg, Tablet, Oral TAKE ONE TABLET BY MOUTH ONCE A DAY FOR 10 DAYS FOR VITAMIN B1 SUPPLEME NTATION 01/23/2024 [id number] THA CHASE Pieter 2023 10 [facility] Allergies, Adverse Reactions, Alerts Combined list of allergies from Department of Defense and Veterans Affairs facilities. It does not include entries that were removed or entered in error. Substance Category Reaction Severity Reaction type Status Date Reported Comments Source No Known Allergies Drug allergy (disorder) active 8 [facility] Immunizations Combined list of available immunizations from the Department of Defense and Veterans Affairs facilities. Immunization Series Date Given Administered By Site Reaction Lot Number CVX Code Drug Technical Account Representative Status Comments Source INFLUENZA, SPLIT VIRUS, TRIVALENT, PF 1 2023 140 complet ed HISTORICA L INFORMATI ON - FROM OTHER [facility], [facility] COVID-19 (MODERNA), MRNA, LNP-S, PF, 100 MCG/0.5ML DOSE OR 50 MCG/0.25ML DOSE 1 2020 207 complet ed HISTORICA L INFORMATI ON - FROM OTHER [facility], [facility] N INFLUENZA, SPLIT VIRUS, QUADRIVALENT, PF 1 2020 150 complet ed HISTORICA L INFORMATI ON - FROM OTHER [facility], [facility] N Influenza, injectable, quadrivalent, preservative free 1 2018 [id number] 150 Seqirus (SEQ) complet ed Influenza , injectabl e, quadrival ent, preservat el free [facility] Influenza, injectable, quadrivalent, preservative free 1 2018 UNK 150 Seqirus (SEQ) comple t ed Influenza , injectabl e, quadrival ent, preservat el free DoD INFLUENZA, SPLIT VIRUS, QUADRIVALENT, PRESERVATIVE 1 2018 158 complet ed HISTORICA L INFORMATI ON - FROM OTHER [facility], [facility] N hepatitis B vaccine, adult dosage 3 2018 [id number] SmithKline (SKB) complet ed hepatitis B vaccine, adult dosage DoD influenza, injectable, quadrivalent, contains preservative 1 2018 [id number] 158 Seqirus (SEQ) complet ed influenza , injectabl e, quadrival ent, contains preservat el DoD varicella virus vaccine 2 2017 [id number] Merck (MSD) complet ed varicella virus vaccine DoD hepatitis B vaccine, adult dosage 2 2017 [id number] Venustechine (SKB) complet ed hepatitis B vaccine, adult dosage DoD measles, mumps and rubella virus vaccine 1 2017 UNK 03 Unknown (UNK) Not Given measles, mumps and rubella virus vaccine DoD poliovirus vaccine, inactivated 1 2017 [id number] Sanofi Pasteur ([facility]) complet ed polioviru s vaccine, inactivat ed DoD varicella virus vaccine 1 2017 [id number] 21 Merck (MSD) complet ed varicella virus vaccine DoD hepatitis B vaccine, adult dosage 1 2017 [id number] 43 Venustechine (SK) complet ed hepatitis B vaccine, adult dosage DoD hepatitis A vaccine, adult dosage 1 2017 UNK 52 Unknown (UNK) Not Given hepatitis A vaccine, adult dosage DoD meningococcal polysaccharid e (groups A, C, Y and W-135) diphtheria toxoid conjugate vaccine (MCV4P) 1 2017 [id number] Sanofi Pasteur ([facility]) complet ed meningoco ccal polysacch aride (groups A, C, Y and W-135) diphtheri a toxoid conjugate vaccine (MCV4P) DoD tetanus toxoid, reduced diphtheria toxoid, and acellular pertu is vaccine, adsorbed 1 2017 [id number] [facility] complet ed tetanus toxoid, reduced diphtheri a toxoid, and acellular pertussis vaccine, adsorbed DoD Adenovirus, type 4 and type 7, live, oral 1 2017 [id number] 143 [facility] ([facility]) complet ed Adenoviru s, type 4 and type 7, live, oral DoD Influenza, injectable, Madin Marble Canine Kidney, quadrivalent with preservative 1 2017 [id number] Seqirus (SEQ) comple t ed Influenza , injectabl e, Madin Ana Canine Kidney, quadrival ent with preservat el DoD HEP A, PED/ADOL, 2 DOSE 1 2009 83 complet ed HISTORICA L INFORMATI ON - FROM OTHER REGISTRY, [facility] HPV, QUADRIVALENT 2 2009 62 complet ed HISTORICA L INFORMATI ON [facility] INFLU[facility], LIVE, TRIVALENT, INTRANASAL 1 2009 111 complet ed HISTORICA L INFORMATI ON - FROM OTHER REGISTRY, [facility] N VARICELLA 2 2009 21 complet ed HISTORICA L INFORMATI ON [facility], QUADRIVALENT 1 2009 62 complet ed HISTORICA L INFORMATI ON - FROM OTHER REGISTRY, [facility] N MENINGOCOCCAL MPSV4 1 2009 32 complet ed HISTORICA L INFORMATI ON - [facility] OTHER [facility] TDAP 5 2009 115 complet ed HISTORICA L INFORMATI ON - FROM OTHER REGISTRY, [facility] MMR 2 2000 03 complet ed HISTORICA L INFORMATI ON - [facility] OTHER [facility] VARICELLA 1 2000 21 complet ed HISTORICA L INFORMATI ON - [facility] OTHER [facility] DTAP 4 1999 20 complet ed HISTORICA L INFORMATI ON - FROM OTHER REGISTRY, [facility] N HIB, UNSPECIFIED FORMULATION 4 1999 17 complet ed HISTORICA L INFORMATI ON - FROM OTHER REGISTRY, [facility] IPV 4 1999 10 complet ed HISTORICA L INFORMATI ON - FROM OTHER REGISTRY, [facility] MMR 1 1999 03 complet ed HISTORICA L INFORMATI ON - FROM OTHER REGISTRY, [facility] DTP 3 1995 01 complet ed HISTORICA L INFORMATI ON - [facility] OTHER [facility], [facility] HEP B, ADOLESCENT OR PEDIATRIC 3 1995 08 complet ed HISTORICA L INFORMATI ON - FROM OTHER REGISTRY, [facility] HIB, UNSPECIFIED FORMULATION 3 1995 17 complet ed HISTORICA L INFORMATI ON - FROM OTHER REGISTRY, [facility] OPV, TRIVALENT 3 1995 02 complet ed HISTORICA L INFORMATI ON - FROM OTHER REGISTRY, [facility] DTP 2 1995 01 complet ed HISTORICA L INFORMATI ON - FROM OTHER REGISTRY, [facility] HIB, UNSPECIFIED FORMULATION 2 1995 17 complet ed HISTORICA L INFORMATI ON - FROM OTHER REGISTRY, [facility] OPV, TRIVALENT 2 1995 02 complet ed HISTORICA L INFORMATI ON - FROM OTHER REGISTRY, [facility] DTP 1 1995 01 complet ed HISTORICA L INFORMATI ON - FROM OTHER REGISTRY, [facility] HEP B, ADOLESCENT OR PEDIATRIC 2 1995 08 complet ed HISTORICA L INFORMATI ON - FROM OTHER REGISTRY, [facility] HIB, UNSPECIFIED FORMULATION 1 1995 17 complet ed HISTORICA L INFORMATI ON - FROM OTHER REGISTRY, [facility] OPV, TRIVALENT 1 1995 02 complet ed HISTORICA L INFORMATI ON - FROM OTHER REGISTRY, [facility] HEP B, ADOLESCENT OR PEDIATRIC 1 1994 08 complet ed HISTORICA L INFORMATI ON - FROM OTHER REGISTRY, [facility] Results Combined list of recent [...] Dec 23, 2023 04:13 PM Reporting Lab: [address] [address] Performing Lab: [address] [address] [facility] CBC ERYTHROCYT ES [#/VOLUME] IN BLOOD BY AUTOMATED COUNT 4.72 10*6/uL 3.60 - 5.00 12/22 Specimen Type: BLOOD No comment entered. Ordering Provider: MICKI COTTER Report Released Date/Time: Dec 23, 2023 04:13 PM Reporting Lab: [address] [address] Performing Lab: [address] [address] [facility] CBC HEMOGLOBIN [MASS/VOLU ME] IN BLOOD 11.8 g/dL 11.0 - 14.9 12/22 Specimen Type: BLOOD No comment entered. Ordering Provider: MICKI COTTER Report Released Date/Time: Dec 23, 2023 04:13 PM Reporting Lab: [address] [address] Performing Lab: [address] [address] [facility] CBC HEMATOCRIT [VOLUME FRACTION] OF BLOOD 36.7 32.6 - 43.4 12/22 Specimen Type: BLOOD No comment entered. Ordering Provider: MICKI COTTER Report Released Date/Time: Dec 23, 2023 04:13 PM Reporting Lab: [address] [address] Performing Lab: [address] [address] [facility] CBC MCV [ENTITIC VOLUME] BY AUTOMATED COUNT 77.8 fL 80.0 - 100.0 12/22 L Specimen Type: BLOOD No comment entered. Ordering Provider: MICKI COTTER AR Report Released Date/Time: Dec 23, 2023 04:13 PM Reporting Lab: [facility] [address] [address] Performing Lab: [address] [address] [facility] CBC MCH [ENTITIC MASS] BY AUTOMATED COUNT 25.0 pg 27.0 - 34.0 12/22 L Specimen Type: BLOOD No comment entered. Ordering Provider: MICKI COTTER Report Released Date/Time: Dec 23, 2023 04:13 PM Reporting Lab: [address] [address] Performing Lab: [address] [address] [facility] CBC MCHC [MASS/VOLU ME] BY AUTOMATED COUNT 32.2 g/dL 33.0 - 36.0 12/22 L Specimen Type: BLOOD No comment entered. Ordering Provider: MICKI COTTER Report Released Date/Time: Dec 23, 2023 04:13 PM Reporting Lab: [address] [address] Performing Lab: [address] [address] [facility] CBC PLATELETS [#/VOLUME] IN BLOOD BY AUTOMATED COUNT 309 10*3/uL 150 - 400 12/22 Specimen Type: BLOOD No comment entered. Ordering Provider: MICKI COTTER Report Released Date/Time: Dec 23, 2023 04:13 PM Reporting Lab: [address] [address] Performing Lab: [address] [address] [facility] CBC PLATELET MEAN VOLUME [ENTITIC VOLUME] IN BLOOD BY AUTOMATED COUNT 10.3 fL 7.5 - 11.2 12/22 Specimen Type: BLOOD No comment entered. Ordering Provider: MICKI COTTER Report Released Date/Time: Dec 23, 2023 04:13 PM Reporting Lab: [address] [place] [address] Performing Lab: [facility] [address] [facility] [address] [facility] CBC ERYTHROCYT E DISTRIBUTI ON WIDTH [RATIO] BY AUTOMATED COUNT 17.3 11.8 - 15.1 12/22 H Specimen Type: BLOOD No comment entered. Ordering Provider: MICKI COTTER Report Released Date/Time: Dec 23, 2023 04:13 PM Reporting Lab: [facility] [address] [facility] [address] Performing Lab: [facility] [address] [facility] [address] [facility] CBC LYMPHOCYTE S/100 LEUKOCYTES IN BLOOD BY AUTOMATED COUNT 58 12/22 Specimen Type: BLOOD No comment entered. Ordering Provider: MICKI COTTER AR Report Released Date/Time: Dec 23, 2023 04:13 PM Reporting Lab: [facility] [address] [facility] [address] Performing Lab: [facility] [address] [facility] [address] [facility] CBC MONOCYTES/ 100 LEUKOCYTES IN BLOOD BY AUTOMATED COUNT 6 12/22 Specimen Type: BLOOD No comment entered. Ordering Provider: MICKI COTTER AR Report Released Date/Time: Dec 23, 2023 04:13 PM Reporting Lab: [facility] [address] [facility] [address] Performing Lab: [facility] [address] [facility] [address] [facility] CBC NEUTROPHIL S/100 LEUKOCYTES IN BLOOD BY AUTOMATED COUNT 32 12/22 Specimen Type: BLOOD No comment entered. Ordering Provider: MICKI COTTER AR Report Released Date/Time: Dec 23, 2023 04:13 PM Reporting Lab: [facility] [address] [facility] [address] Performing Lab: [facility] [address] [facility] [address] [facility] EOSINOPHIL S/100 LEUKOCYTES IN BLOOD BY AUTOMATED COUNT 2 12/22 Specimen Type: BLOOD No comment entered. Ordering Provider: MICKI COTTER Report Released Date/Time: Dec 23, 2023 04:13 PM Reporting Lab: [facility] [address] [place] [address] Performing Lab: [facility] [address] [place] [address] [facility] BASOPHILS/ 100 LEUKOCYTES IN BLOOD BY AUTOMATED COUNT 1 12/22 Specimen Type: BLOOD No comment entered. Ordering Provider: MICKI COTTER Report Released Date/Time: Dec 23, 2023 04:13 PM Reporting Lab: [address] [address] Performing Lab: [address] [address] [facility] CBC LYMPHOCYTE S [#/VOLUME] IN BLOOD BY AUTOMATED COUNT 3.67 10*3/uL 0.77 - 4.50 12/22 Specimen Type: BLOOD No comment entered. Ordering Provider: MICKI COTTER Report Released Date/Time: Dec 23, 2023 04:13 PM Reporting Lab: [address] [address] Performing Lab: [address] [address] [facility] CBC MONOCYTES [#/VOLUME] IN BLOOD BY AUTOMATED COUNT 0.39 10*3/uL 0.19 - 0.80 12/22 Specimen Type: BLOOD No comment entered. Ordering Provider: MICKI COTTER AR Report Released Date/Time: Dec 23, 2023 04:13 PM Reporting Lab: [address] [address] Performing Lab: [address] [address] [facility] CBC NEUTROPHIL S [#/VOLUME] IN BLOOD BY AUTOMATED COUNT 2.03 10*3/uL 2.10 - 8.00 12/22 L Specimen Type: BLOOD No comment entered. Ordering Provider: MICKI COTTER AR Report Released Date/Time: Dec 23, 2023 04:13 PM Reporting Lab: [address] [address] Performing Lab: [address] [phone] CBC EOSINOPHIL S [#/VOLUME] IN BLOOD BY AUTOMATED COUNT 0.13 10*3/uL 0.00 - 0.60 12/22 Specimen Type: BLOOD No comment entered. Ordering Provider: MICKI COTTER Report Released Date/Time: Dec 23, 2023 04:13 PM Reporting Lab: [address] [address] Performing Lab: [address] [phone] [place] [address] CBC BASOPHILS [#/VOLUME] IN BLOOD BY AUTOMATED COUNT 0.08 10*3/uL 0.00 - 0.20 12/22 Specimen Type: BLOOD No comment entered. Ordering Provider: MICKI COTTER AR Report Released Date/Time: Dec 23, 2023 04:13 PM Reporting Lab: [address] [address] Performing Lab: [address] [phone] [place] [address] COMPREHE NSIVE METABOLI C PANEL CREATININE [MASS/VOLU ME] IN SERUM OR PLASMA 0.84 mg/dL 0.6 - 1.1 12/22 Specimen Type: PLASMA Comment: No hemolysis noted. Ordering Provider: MICKI COTTER AR Report Released Date/Time: Dec 23, 2023 04:13 PM Reporting Lab: [address] [address] Performing Lab: [address] [place] [address] [facility] COMPREHE NSIVE METABOLI C PANEL UREA NITROGEN [MASS/VOLU ME] IN SERUM OR PLASMA 5.6 mg/dL 9.0 - 25.0 12/22 L Specimen Type: PLASMA Comment: No hemolysis noted. Ordering Provider: MICKI COTTER Report Released Date/Time: Dec 23, 2023 04:13 PM Reporting Lab: [facility] [address] [facility] [address] Performing Lab: [facility] [address] [facility] [address] [facility] COMPREHE NSIVE METABOLI C PANEL GLUCOSE [MASS/VOLU ME] IN SERUM OR PLASMA 109 mg/dL 72 - 99 12/22 H Specimen Type: PLASMA Comment: No hemolysis noted. Ordering Provider: MICKI COTTER Report Released Date/Time: Dec 23, 2023 04:13 PM Reporting Lab: [facility] [address] [facility] [address] Performing Lab: [place] [address] [facility] [address] [facility] COMPREHE NSIVE METABOLI C PANEL SODIUM [MOLES/VOL UME] IN SERUM OR PLASMA 139 meq/L 136 - 145 12/22 Specimen Type: PLASMA Comment: No hemolysis noted. Ordering Provider: MICKI COTTER AR Report Released Date/Time: Dec 23, 2023 04:13 PM Reporting Lab: [facility] [address] [facility] [address] Performing Lab: [address] [address] [facility] COMPREHE NSIVE METABOLI C PANEL POTASSIUM [MOLES/VOL UME] IN SERUM OR PLASMA 3.7 meq/L 3.5 - 5 12/22 Specimen Type: PLASMA Comment: No hemolysis noted. Ordering Provider: MICKI COTTER Report Released Date/Time: Dec 23, 2023 04:13 PM Reporting Lab: [facility] [address] [facility] [address] Performing Lab: [facility] [address] [facility] [address] [facility] COMPREHE NSIVE METABOLI C PANEL CHLORIDE [MOLES/VOL UME] IN SERUM OR PLASMA 108 meq/L 98 - 107 12/22 H Specimen Type: PLASMA Comment: No hemolysis noted. Ordering Provider: MICKI COTTER AR Report Released Date/Time: Dec 23, 2023 04:13 PM Reporting Lab: [place] [address] [facility] [address] Performing Lab: [place] [address] [facility] [address] [facility] COMPREHE NSIVE METABOLI C PANEL CARBON DIOXIDE, TOTAL [MOLES/VOL UME] IN SERUM OR PLASMA 17 meq/L 22 - 31 12/22 L Specimen Type: PLASMA Comment: No hemolysis noted. Ordering Provider: MICKI COTTER AR Report Released Date/Time: Dec 23, 2023 04:13 PM Reporting Lab: [place] [address] [facility] [address] Performing Lab: [place] [address] [facility] [address] [facility] COMPREHE NSIVE METABOLI C PANEL CALCIUM [MASS/VOLU ME] IN SERUM OR PLASMA 9.1 mg/dL 8.4 - 10.4 12/22 Specimen Type: PLASMA Comment: No hemolysis noted. Ordering Provider: MICKI COTTER AR Report Released Date/Time: Dec 23, 2023 04:13 PM Reporting Lab: [place] [address] [facility] [address] Performing Lab: [place] [address] [facility] [address] [facility] COMPREHE NSIVE METABOLI C PANEL PROTEIN [MASS/VOLU ME] IN SERUM OR PLASMA 8.2 g/dL 6 - 8.6 12/22 Specimen Type: PLASMA Comment: No hemolysis noted. Ordering Provider: MICKI COTTER Report Released Date/Time: Dec 23, 2023 04:13 PM Reporting Lab: [facility] [address] [facility] [address] Performing Lab: [facility] [address] [place] [address] [facility] COMPREHE NSIVE METABOLI C PANEL ALBUMIN [MASS/VOLU ME] IN SERUM OR PLASMA 4.4 g/dL 3.4 - 5 12/22 Specimen Type: PLASMA Comment: No hemolysis noted. Ordering Provider: MICKI COTTER Report Released Date/Time: Dec 23, 2023 04:13 PM Reporting Lab: [facility] [address] [place] [address] Performing Lab: [address] [phone] [place] [address] COMPREHE NSIVE METABOLI C PANEL BILIRUBIN. TOTAL [MASS/VOLU ME] IN SERUM OR PLASMA 0.3 mg/dL 0.2 - 1.2 12/22 Specimen Type: PLASMA Comment: No hemolysis noted. Ordering Provider: MICKI COTTER Report Released Date/Time: Dec 23, 2023 04:13 PM Reporting Lab: [facility] [address] [place] [address] Performing Lab: [address] [address] [facility] COMPREHE NSIVE METABOLI C PANEL ALKALINE PHOSPHATAS E [ENZYMATIC ACTIVITY/V OLUME] IN SERUM OR PLASMA 82 U/L 40 - 150 12/22 Specimen Type: PLASMA Comment: No hemolysis noted. Ordering Provider: MICKI COTTER AR Report Released Date/Time: Dec 23, 2023 04:13 PM Reporting Lab: [facility] [address] [place] [address] Performing Lab: [facility] [address] [place] [address] [facility] COMPREHE NSIVE METABOLI C PANEL ASPARTATE AMINOTRANS FERASE [ENZYMATIC ACTIVITY/V OLUME] IN SERUM OR PLASMA 25 U/L 5 - 34 12/22 Specimen Type: PLASMA Comment: No hemolysis noted. Ordering Provider: MICKI COTTER Report Released Date/Time: Dec 23, 2023 04:13 PM Reporting Lab: [place] [address] [facility] [phone] Performing Lab: [place] [address] [facility] [id number] [place] [address] COMPREHE NSIVE METABOLI C PANEL ALANINE AMINOTRANS FERASE [ENZYMATIC ACTIVITY/V OLUME] IN SERUM OR PLASMA 17 U/L 8 - 40 12/22 Specimen Type: PLASMA Comment: No hemolysis noted. Ordering Provider: MICKI COTTER Report Released Date/Time: Dec 23, 2023 04:13 PM Reporting Lab: [place] [address] [facility] [phone] Performing Lab: [place] [address] [facility] [id number] [place] [address] COMPREHE NSIVE METABOLI C PANEL GLOMERULAR FILTRATION RATE/1.73 SQ M.PREDICTE D [VOLUME RATE/AREA] IN SERUM, PLASMA OR BLOOD BY CREATININE -BASED FORMULA (CKD-EPI 2020) 97.0 60 12/22 Specimen Type: PLASMA Comment: No hemolysis noted. Ordering Provider: MICKI COTTER Report Released Date/Time: Dec 23, 2023 04:13 PM Reporting Lab: [place] [address] [facility] [address] Performing Lab: [place] [address] [facility] [id number] [place] [address] COVID-19 SCREENIN G PANEL (STL-PB) SARS-COV-2 (COVID-19) [...] Dec 23, 2023 04:13 PM Reporting Lab: [address] [address] Performing Lab: [address] [address] [facility] ETHANOL SERUM/PL ASMA (STL) ETHANOL [MASS/VOLU ME] IN SERUM OR PLASMA 300 mg/dL 0 - 10 12/22 H Specimen Type: PLASMA Comment: No hemolysis noted. Ordering Provider: MICKI COTTER Report Released Date/Time: Dec 23, 2023 04:13 PM Reporting Lab: [address] [address] Performing Lab: [address] [address] [facility] METHADON E PANEL (STL) ETHANOL [MASS/VOLU ME] IN URINE 296-POSm g/dL 0 - 20 12/22 H Specimen Type: URINE Comment: The cut-off value for this test was laboratory developed and its performance characteris tics confirmed by the [facility] laboratory thru method comparison with reference laboratory and medication chart review. The laboratory is regulated under CLIA as qualified to perform high-comple xity testing. This test is used for clinical purposes in conjunction with other laboratory tests. Ordering Provider: MICKI COTTER Report Released Date/Time: Dec 23, 2023 04:13 PM Reporting Lab: [address] [address] Performing Lab: [address] [address] [facility] METHADON E PANEL (STL) AMPHETAMIN E [PRESENCE] IN URINE BY SCREEN METHOD Negative ng/mL 12/22 Specimen Type: URINE Comment: The cut-off value for this test was laboratory developed and its performance characteris tics confirmed by the [facility] laboratory thru method comparison with reference laboratory and medication chart review. The laboratory is regulated under CLIA as qualified to perform high-comple xity testing. This test is used for clinical purposes in conjunction with other laboratory tests. Ordering Provider: MICKI COTTER AR Report Released Date/Time: Dec 23, 2023 04:13 PM Reporting Lab: [place] [address] [facility] [address] Performing Lab: [address] [address] [facility] METHADON E PANEL (STL) BENZOYLECG ONINE [PRESENCE] IN URINE Negative ng/mL 12/22 Specimen Type: URINE Comment: The cut-off value for this test was laboratory developed and its performance characteris tics confirmed by the [facility] laboratory thru method comparison with reference laboratory and medication chart review. The laboratory is regulated under CLIA as qualified to perform high-comple xity testing. This test is used for clinical purposes in conjunction with other laboratory tests. Ordering Provider: MICKI COTTER AR Report Released Date/Time: Dec 23, 2023 04:13 PM Reporting Lab: [place] [address] [facility] [address] Performing Lab: [address] [address] [facility] METHADON E PANEL (STL) BENZODIAZE PINES [PRESENCE] IN URINE BY SCREEN METHOD Negative ng/mL 12/22 Specimen Type: URINE Comment: The cut-off value for this test was laboratory developed and its performance characteris tics confirmed by the [facility] laboratory thru method comparison with reference laboratory and medication chart review. The laboratory is regulated under CLIA as qualified to perform high-comple xity testing. This test is used for clinical purposes in conjunction with other laboratory tests. Ordering Provider: MICKI COTTER AR Report Released Date/Time: Dec 23, 2023 04:13 PM Reporting Lab: [place] [address] [facility] [address] Performing Lab: [facility] [address] [place] [address] [facility] METHADON E PANEL (STL) CANNABINOI DS [PRESENCE] IN URINE BY SCREEN METHOD 99-POSng /mL 12/22 Specimen Type: URINE Comment: The cut-off value for this test was laboratory developed and its performance characteris tics confirmed by the [facility] laboratory thru method comparison with reference laboratory and medication chart review. The laboratory is regulated under CLIA as qualified to perform high-comple xity testing. This test is used for clinical purposes in conjunction with other laboratory tests. Ordering Provider: MICKI COTTER AR Report Released Date/Time: Dec 23, 2023 04:13 PM Reporting Lab: [address] [address] Performing Lab: [place] [address] [facility] [address] [facility] METHADON E PANEL (STL) METHADONE [PRESENCE] IN URINE Negative ng/mL 12/22 Specimen Type: URINE Comment: The cut-off value for this test was laboratory developed and its performance characteris tics confirmed by the [facility] laboratory thru method comparison with reference laboratory and medication chart review. The laboratory is regulated under CLIA as qualified to perform high-comple xity testing. This test is used for clinical purposes in conjunction with other laboratory tests. Ordering Provider: MICKI COTTER AR Report Released Date/Time: Dec 23, 2023 04:13 PM Reporting Lab: [place] [address] [facility] [address] Performing Lab: [address] [address] [facility] METHADON E PANEL (STL) OPIATES [PRESENCE] IN URINE BY SCREEN METHOD Negative ng/mL 12/22 Specimen Type: URINE Comment: The cut-off value for this test was laboratory developed and its performance characteris tics confirmed by the [facility] laboratory thru method comparison with reference laboratory and medication chart review. The laboratory is regulated under CLIA as qualified to perform high-comple xity testing. This test is used for clinical purposes in conjunction with other laboratory tests. Ordering Provider: MICKI COTTER Report Released Date/Time: Dec 23, 2023 04:13 PM Reporting Lab: [address] [address] Performing Lab: [address] [address] [facility] METHADON E PANEL (STL) CREATININE [MASS/VOLU ME] IN URINE 63.4 mg/dL 47 - 110 12/22 Specimen Type: URINE Comment: The cut-off value for this test was laboratory developed and its performance characteris tics confirmed by the [facility] laboratory thru method comparison with reference laboratory and medication chart review. The laboratory is regulated under CLIA as qualified to perform high-comple xity testing. This test is used for clinical purposes in conjunction with other laboratory tests. Ordering Provider: MICKI COTTER Report Released Date/Time: Dec 23, 2023 04:13 PM Reporting Lab: [address] [address] Performing Lab: [address] [address] [facility] METHADON E PANEL (STL) OXYCODONE CUTOFF [MASS/VOLU ME] IN URINE FOR SCREEN METHOD Negative ng/mL 12/22 Specimen Type: URINE Comment: The cut-off value for this test was laboratory developed and its performance characteris tics confirmed by the [facility] laboratory thru method comparison with reference laboratory and medication chart review. The laboratory is regulated under CLIA as qualified to perform high-comple xity testing. This test is used for clinical purposes in conjunction with other laboratory tests. Ordering Provider: MICKI COTTER Report Released Date/Time: Dec 23, 2023 04:13 PM Reporting Lab: [address] [place] [address] Performing Lab: [address] [address] [facility] METHADON E PANEL (STL) BUPRENORPH INE [PRESENCE] IN URINE Negative 12/22 Specimen Type: URINE Comment: The cut-off value for this test was laboratory developed and its performance characteris tics confirmed by the [facility] laboratory thru method comparison with reference laboratory and medication chart review. The laboratory is regulated under CLIA as qualified to perform high-comple xity testing. This test is used for clinical purposes in conjunction with other laboratory tests. Ordering Provider: MICKI COTTER Report Released Date/Time: Dec 23, 2023 04:13 PM Reporting Lab: [address] [address] Performing Lab: [address] [address] [facility] METHADON E PANEL (STL) FENTANYL [PRESENCE] IN URINE Negative ng/mL 12/22 Specimen Type: URINE Comment: The cut-off value for this test was laboratory developed and its performance characteris tics confirmed by the [facility] laboratory thru method comparison with reference laboratory and medication chart review. The laboratory is regulated under CLIA as qualified to perform high-comple xity testing. This test is used for clinical purposes in conjunction with other laboratory tests. Ordering Provider: MICKI COTTER Report Released Date/Time: Dec 23, 2023 04:13 PM Reporting Lab: [address] [address] Performing Lab: [address] [address] [facility] PREGNANC Y TEST URINE (MA-STL) CHORIOGONA DOTROPIN ( TEST) [PRESENCE] IN URINE NEG 12/22 Specimen Type: URINE No comment entered. Ordering Provider: MICKI COTTER Report Released Date/Time: Dec 23, 2023 04:13 PM Reporting Lab: [address] [place] [address] Performing Lab: [place] [address] [facility] [address] [facility] URINALYS IS (STL-PB) COLOR OF URINE Colorles s 12/22 Specimen Type: URINE No comment entered. Ordering Provider: MICKI COTTER Report Released Date/Time: Dec 23, 2023 04:13 PM Reporting Lab: [place] [address] [facility] [address] Performing Lab: [place] [address] [facility] [address] [facility] URINALYS IS (STL-PB) BILIRUBIN. TOTAL [PRESENCE] IN URINE BY TEST STRIP Negative mg/dL 12/22 Specimen Type: URINE No comment entered. Ordering Provider: MICKI COTTER Report Released Date/Time: Dec 23, 2023 04:13 PM Reporting Lab: [place] [address] [facility] [address] Performing Lab: [address] [address] [facility] URINALYS IS (STL-PB) PH OF URINE BY TEST STRIP 6.5 5.0 - 8.0 12/22 Specimen Type: URINE No comment entered. Ordering Provider: MICKI COTTER Report Released Date/Time: Dec 23, 2023 04:13 PM Reporting Lab: [place] [address] [facility] [address] Performing Lab: [address] [address] [facility] URINALYS IS (STL-PB) APPEARANCE OF URINE Clear 12/22 Specimen Type: URINE No comment entered. Ordering Provider: MICKI COTTER AR Report Released Date/Time: Dec 23, 2023 04:13 PM Reporting Lab: [place] [address] [facility] [address] Performing Lab: [facility] [address] [facility] [address] [facility] URINALYS IS (STL-PB) NITRITE [PRESENCE] IN URINE BY TEST STRIP Negative mg/dL 12/22 Specimen Type: URINE No comment entered. Ordering Provider: MICKI COTTER Report Released Date/Time: Dec 23, 2023 04:13 PM Reporting Lab: [place] [address] [facility] [address] Performing Lab: [place] [address] [facility] [address] [facility] URINALYS IS (STL-PB) GLUCOSE [MASS/VOLU ME] IN URINE BY TEST STRIP Normalmg /dL 12/22 Specimen Type: URINE No comment entered. Ordering Provider: MICKI COTTER Report Released Date/Time: Dec 23, 2023 04:13 PM Reporting Lab: [place] [address] [facility] [address] Performing Lab: [place] [address] [facility] [address] [facility] URINALYS IS (STL-PB) PROTEIN [MASS/VOLU ME] IN URINE BY TEST STRIP Negative mg/dL - 20 12/22 Specimen Type: URINE No comment entered. Ordering Provider: MICKI COTTER Report Released Date/Time: Dec 23, 2023 04:13 PM Reporting Lab: [place] [address] [facility] [address] Performing Lab: [address] [address] [facility] URINALYS IS (STL-PB) URN.UROBIL INOGEN Normalmg /dL 12/22 Specimen Type: URINE No comment entered. Ordering Provider: MICKI COTTER AR Report Released Date/Time: Dec 23, 2023 04:13 PM Reporting Lab: [place] [address] [facility] [address] Performing Lab: [facility] [address] [facility] [address] [facility] URINALYS IS (STL-PB) HEMOGLOBIN [MASS/VOLU ME] IN URINE BY TEST STRIP Negative mg/dL 12/22 Specimen Type: URINE No comment entered. Ordering Provider: MICKI COTTER AR Report Released Date/Time: Dec 23, 2023 04:13 PM Reporting Lab: [place] [address] [facility] [address] Performing Lab: [place] [address] [facility] [address] [facility] URINALYS IS (STL-PB) KETONES [MASS/VOLU ME] IN URINE BY TEST STRIP Negative mg/dL 12/22 Specimen Type: URINE No comment entered. Ordering Provider: MIKCI COTTER Report Released Date/Time: Dec 23, 2023 04:13 PM Reporting Lab: [place] [address] [facility] [address] Performing Lab: [address] [address] [facility] URINALYS IS (STL-PB) URN.LEUK.E ST. Negative mg/dL 12/22 Specimen Type: URINE No comment entered. Ordering Provider: MICKI COTTER Report Released Date/Time: Dec 23, 2023 04:13 PM Reporting Lab: [address] [address] Performing Lab: [address] [address] [facility] URINALYS IS (STL-PB) SPECIFIC GRAVITY OF URINE 1.009 1.005 - 1.029 12/22 Specimen Type: URINE No comment entered. Ordering Provider: MICKI COTTER AR Report Released Date/Time: Dec 23, 2023 04:13 PM Reporting Lab: [place] [address] [place] [phone] Performing Lab: [facility] [address] [facility] [address] [facility] METHADON E PANEL (STL) ETHANOL [MASS/VOLU ME] IN URINE Negative mg/dL 0 - 20 04/12 Specimen Type: URINE Comment: The cut-off value for this test was laboratory developed and its performance characteris tics confirmed by the [facility] laboratory thru method comparison with reference laboratory and medication chart review. The laboratory is regulated under CLIA as qualified to perform high-comple xity testing. This test is used for clinical purposes in conjunction with other laboratory tests. Ordering Provider: MERLE LANG Report Released Date/Time: Apr 12, 2023 07:25 AM Reporting Lab: [address] [address] Performing Lab: [address] [address] [facility] METHADON E PANEL (STL) AMPHETAMIN E [PRESENCE] IN URINE BY SCREEN METHOD Negative ng/mL 04/12 Specimen Type: URINE Comment: The cut-off value for this test was laboratory developed and its performance characteris tics confirmed by the [facility] laboratory thru method comparison with reference laboratory and medication chart review. The laboratory is regulated under CLIA as qualified to perform high-comple xity testing. This test is used for clinical purposes in conjunction with other laboratory tests. Ordering Provider: MERLE LANG Report Released Date/Time: Apr 12, 2023 07:25 AM Reporting Lab: [place] [address] [facility] [address] Performing Lab: [address] [address] [facility] METHADON E PANEL (STL) BENZOYLECG ONINE [PRESENCE] IN URINE Negative ng/mL 04/12 Specimen Type: URINE Comment: The cut-off value for this test was laboratory developed and its performance characteris tics confirmed by the [facility] laboratory thru method comparison with reference laboratory and medication chart review. The laboratory is regulated under CLIA as qualified to perform high-comple xity testing. This test is used for clinical purposes in conjunction with other laboratory tests. Ordering Provider: MERLE LANG Report Released Date/Time: Apr 12, 2023 07:25 AM Reporting Lab: [facility] [address] [facility] [address] Performing Lab: [facility] [address] [facility] [address] [facility] METHADON E PANEL (STL) BENZODIAZE PINES [PRESENCE] IN URINE BY SCREEN METHOD Negative ng/mL 04/12 Specimen Type: URINE Comment: The cut-off value for this test was laboratory developed and its performance characteris tics confirmed by the [facility] laboratory thru method comparison with reference laboratory and medication chart review. The laboratory is regulated under CLIA as qualified to perform high-comple xity testing. This test is used for clinical purposes in conjunction with other laboratory tests. Ordering Provider: MERLE LANG Report Released Date/Time: Apr 12, 2023 07:25 AM Reporting Lab: [address] [address] Performing Lab: [address] [address] [facility] METHADON E PANEL (STL) CANNABINOI DS [PRESENCE] IN URINE BY SCREEN METHOD 100-POSn g/mL 04/12 Specimen Type: URINE Comment: The cut-off value for this test was laboratory developed and its performance characteris tics confirmed by the [facility] laboratory thru method comparison with reference laboratory and medication chart review. The laboratory is regulated under CLIA as qualified to perform high-comple xity testing. This test is used for clinical purposes in conjunction with other laboratory tests. Ordering Provider: MERLE LANG Report Released Date/Time: Apr 12, 2023 07:25 AM Reporting Lab: [facility] [address] [place] [address] Performing Lab: [place] [address] [address] [facility] METHADON E PANEL (STL) METHADONE [PRESENCE] IN URINE Negative ng/mL 04/12 Specimen Type: URINE Comment: The cut-off value for this test was laboratory developed and its performance characteris tics confirmed by the [facility] laboratory thru method comparison with reference laboratory and medication chart review. The laboratory is regulated under CLIA as qualified to perform high-comple xity testing. This test is used for clinical purposes in conjunction with other laboratory tests. Ordering Provider: MERLE LANG Report Released Date/Time: Apr 12, 2023 07:25 AM Reporting Lab: [address] [address] Performing Lab: [address] [address] [facility] METHADON E PANEL (STL) OPIATES [PRESENCE] IN URINE BY SCREEN METHOD Negative ng/mL 04/12 Specimen Type: URINE Comment: The cut-off value for this test was laboratory developed and its performance characteris tics confirmed by the [facility] laboratory thru method comparison with reference laboratory and medication chart review. The laboratory is regulated under CLIA as qualified to perform high-comple xity testing. This test is used for clinical purposes in conjunction with other laboratory tests. Ordering Provider: MERLE LANG Report Released Date/Time: Apr 12, 2023 07:25 AM Reporting Lab: [address] [address] Performing Lab: [address] [address] [facility] METHADON E PANEL (STL) CREATININE [MASS/VOLU ME] IN URINE 59.3 mg/dL 47 - 110 04/12 Specimen Type: URINE Comment: The cut-off value for this test was laboratory developed and its performance characteris tics confirmed by the [facility] laboratory thru method comparison with reference laboratory and medication chart review. The laboratory is regulated under CLIA as qualified to perform high-comple xity testing. This test is used for clinical purposes in conjunction with other laboratory tests. Ordering Provider: MERLE LANG Report Released Date/Time: Apr 12, 2023 07:25 AM Reporting Lab: [facility] [address] [facility] [address] Performing Lab: [facility] [address] [facility] [address] [facility] METHADON E PANEL (STL) OXYCODONE CUTOFF [MASS/VOLU ME] IN URINE FOR SCREEN METHOD Negative ng/mL 04/12 Specimen Type: URINE Comment: The cut-off value for this test was laboratory developed and its performance characteris tics confirmed by the [facility] laboratory thru method comparison with reference laboratory and medication chart review. The laboratory is regulated under CLIA as qualified to perform high-comple xity testing. This test is used for clinical purposes in conjunction with other laboratory tests. Ordering Provider: MERLE LANG Report Released Date/Time: Apr 12, 2023 07:25 AM Reporting Lab: [place] [address] [facility] [address] Performing Lab: [address] [address] [facility] METHADON E PANEL (STL) BUPRENORPH INE [PRESENCE] IN URINE Negative 04/12 Specimen Type: URINE Comment: The cut-off value for this test was laboratory developed and its performance characteris tics confirmed by the [facility] laboratory thru method comparison with reference laboratory and medication chart review. The laboratory is regulated under CLIA as qualified to perform high-comple xity testing. This test is used for clinical purposes in conjunction with other laboratory tests. Ordering Provider: MERLE LANG Report Released Date/Time: Apr 12, 2023 07:25 AM Reporting Lab: [facility] [address] [facility] [address] Performing Lab: [facility] [address] [place] [address] [facility] METHADON E PANEL (STL) FENTANYL [PRESENCE] IN URINE Negative ng/mL 04/12 Specimen Type: URINE Comment: The cut-off value for this test was laboratory developed and its performance characteris tics confirmed by the [facility] laboratory thru method comparison with reference laboratory and medication chart review. The laboratory is regulated under CLIA as qualified to perform high-comple xity testing. This test is used for clinical purposes in conjunction with other laboratory tests. Ordering Provider: MERLE LANG Report Released Date/Time: Apr 12, 2023 07:25 AM Reporting Lab: [facility] [address] [facility] [address] Performing Lab: [address] [address] [facility] GC & CHLAMYDI A PCR [...] 02:04 PM Reporting Lab: [facility] [address] [facility] [address] Performing Lab: [place] [address] [facility] [address] [facility] GC & CHLAMYDI A PCR [...] Apr 06, 2023 02:04 PM Reporting Lab: [address] [address] Performing Lab: [address] [address] [facility] RAPID PLASMA REAGIN (RPR) REAGIN AB [PRESENCE] IN SERUM BY RPR NON-REAC TIVE 04/07 Specimen Type: SERUM No comment entered. 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 Location Location Details Encounter Type Encounter Number Reason For Visit Attending Provider ADM Date DC Date Status Disposition Source [facility](IEP Primary Care) OUTPATIENT [id number] Notes Entered by: VERNON DURÁN OD 29 Sep 2017 1104 ------- ------- ------- ------- -- right ankle injury TEZ AJ 09/29 Released with Work/Duty Limitations [employer](I EP Primary Care) [employer](PES Optometry -Trainee) OUTPATIENT [id number] BARRON LEAL 09/29 Released w/o Limitations [employer](P ES Optomet ry-Kirill nee) [employer]([facility] Physical Exam) OUTPATIENT [id number] Notes Entered by: Nicolasa CHEATHAM 03 Oct 2017 0734 ------- ------- ------- ------- -- To get clear to ship for right ankle TEZ AJ 10/03 Released w/o Limitations [employer](R [facility] Physica l Exam) [facility](JORGE LU[facility] C Immunizat ions (Post)) OUTPATIENT [id number] Notes Entered by: Pieter GOMEZ 04 Oct 2017 1005 ------- ------- ------- ------- -- IET MESHA NOLAN 10/04 Released w/o Limitations [facility] Immuniz ations (Post)) [facility] Physical Therapy) OUTPATIENT [id number] Notes Entered by: FORTUNATO ORDOÑEZ 06 Oct 2017 0955 ------- ------- ------- ------- -- Ankle pain DULCE MARIA KEMP 10/06 Released w/o Limitations [facility](T MC Physica l Therapy ) [facility] Physical Therapy) OUTPATIENT [id number] Notes Entered by: FORTUNATO ORDOÑEZ 12 Oct 2017 1021 ------- ------- ------- ------- -- Ankle pain DULCE MARIA KEMP 10/12 Released with Work/Duty Limitations [employer](T MC Physica l Therapy ) [facility](JORGE LUIS C Immunizat ions (Post)) OUTPATIENT [id number] Notes Entered by: Pieter GOMEZ 02 Nov 2017 1017 ------- ------- ------- ------- -- DF MESHA NOLAN 11/02 Released w/o Limitations [facility](M [facility] Immuniz ations (Post)) [facility]([address]) OUTPATIENT [id number] Notes Entered by: RIO LIPSCOMB 02 Jan 2018 0701 ------- ------- ------- ------- -- Lighthe aded Dizzy HARITHA NGO 01/02 Sick at Home/Quarter s [facility]([address]) [facility]([address]) TELE CONSULT [id number] Notes Entered by: HARITHA NGO 03 Jan 2018 1018 ------- ------- ------- ------- -- To review labs ELPIDIO TURCIOS 01/03 [facility]([address]) [facility]([address]) OUTPATIENT [id number] Notes Entered by: RIO LIPSCOMB 05 Jan 2018 0633 ------- ------- ------- ------- -- Follow up call back HARITHA NGO 01/05 Released w/o Limitations [facility]([address]) [facility]([address]) OUTPATIENT [id number] Notes Entered by: SORIN HERZOG 13 Jan 2018 0643 ------- ------- ------- ------- -- ankle pain HARITHA NGO 01/13 Released with Work/Duty Limitations [facility]([address]) [facility]([address]) OUTPATIENT [id number] Notes Entered by: SORIN HERZOG 24 Jan 2018 0634 ------- ------- ------- ------- -- follow up HARITHA NGO 01/24 Released with Work/Duty Limitations [facility]([address]) [facility]([address]) OUTPATIENT [id number] Notes Entered by: RIO LIPSCOMB 30 Jan 2018 0636 ------- ------- ------- ------- -- Ankle pain F/U HARITHA NGO 01/30 Released with Work/Duty Limitations [facility]([address]) [facility]([address]) TELE CONSULT [id number] Notes Entered by: Dick ZAMAN 14 Feb 2018 1447 ------- ------- ------- ------- -- f/u mri WALLY ZAMAN 02/14 [facility]([address]) [facility]([address]) OUTPATIENT [id number] Notes Entered by: Aaron RODRIGUEZ 15 Feb 2018 0705 ------- ------- ------- ------- -- Right Ankle AMINTA BRAMBILA 02/15 Released with Work/Duty Limitations [facility]([address]) [facility]([address]) OUTPATIENT [id number] Pain in right ankle and joints of right foot AMINTA BRAMBILA 02/20 Released with Work/Duty Limitations [facility]([address]) [facility]) OUTPATIENT [id number] unstabl e fractur ed ankle ESTEFANI HOANG 02/21 Released w/o Limitations [facility]) [facility]([address]) OUTPATIENT [id number] Ankle Pain AMINTA BRAMBILA 02/24 Released w/o Limitations [facility] -[facility] Primary [facility] [place]) [place]) OUTPATIENT [id number] Notes Entered by: MIKE POWELL E 08 Sep 2018 0929 ------- ------- ------- ------- -- imr/pha /mf 830/flu /hep b/g6pd/ vision YESSENIA LEE 09/08 Released w/o Limitations [place] [place] OUTPATIENT [id number] Notes Entered by: MANUEL BASURTO 08 Sep 2018 1112 ------- ------- ------- ------- -- MANUEL Rossi 09/08 Released w/o Limitations [place]) [facility] [place] [place] [place]) TELE CONSULT [id number] Notes Entered by: Sandi CHANEY 23 Sep 2018 0744 ------- ------- ------- ------- -- F/u ER visit NYDIA CHANEY 09/23 Referred for Appointment [facility] ([facility] [place] [place]) [facility] HC PRO PHONE CALL 11-20 MIN [id number] Diagnos is: ICD-10- CM F43.12 Post-tr aumatic stress disorde r, chronic CASADY,TAR A E 08/24 [facility] Outpatient Encounter [id number] Diagnos is: ICD-10- CM F43.10 Post-tr aumatic stress disorde r, unspeci PAWEL Varela S 08/24 [facility] OFFICE O/P EST HI 40 MIN [id number] [id number] Diagnos is: ICD-10- CM F43.10 Post-tr aumatic stress disorde r, unspeci PAWEL Varela S 08/24 [facility] [place] [facility] CASE MANAGEMENT [id number] [id number] Diagnos is: ICD-10- CM Z59.02 Unshelt ered homesophie NGUYEN,BUD LAURA P 08/[address] [facility] PSYTX W PT 45 MINUTES [id number] [id number] Diagnos is: ICD-10- CM F43.12 Post-tr aumatic stress disorde r, chronic TYRESE,SHE LBY L 08/30 [facility] HC PRO PHONE CALL 21-30 MIN [id number] Diagnos is: ICD-10- CM F43.12 Post-tr aumatic stress disorde r, chronic CASADY,TAR A E 09/01 [facility] [facility] HC PRO PHONE CALL 5-10 MIN [id number] [id number] Diagnos is: ICD-10- CM Z59.02 Unshelt ered homeles celine NGUYEN,MAD LAURA P 09/[address] [facility] HC PRO PHONE CALL 11-20 MIN [id number] [id number] Diagnos is: ICD-10- CM Z59.02 Unshelt ered homeles snanel NGUYEN,MAD LAURA P 09/[address] [facility] CASE MANAGEMENT [id number] [id number] Diagnos is: ICD-10- CM Z59.02 Unshelt ered BUD Byrd P 09/[address] [facility] OFFICE O/P NEW MOD 45 MIN [id number] [id number] Diagnos is: ICD-10- CM F43.10 Post-tr aumatic stress disorde r, unspeci fied MAIRA,JEROMY MARCUM E 09/12 [facility] [place] [facility] HC PRO PHONE CALL 21-30 MIN [id number] [id number] Diagnos is: ICD-10- CM Z59.02 Unshelt BUD SolisNE P 09/[address] [facility] PSYTX W PT 45 MINUTES [id number] [id number] Diagnos is: ICD-10- CM Z59.02 Unshelt ereBUD MiddletonNE P 09/[address] [facility] PSYTX W PT 60 MINUTES 68651-7.65 [id number] Diagnos is: ICD-10- CM F31.89 Other bipolar disorde r LAY XIONG HARIY L 09/19 [facility] [facility] PT EDUCATION NOC INDIVID [id number] [id number] Diagnos is: ICD-10- CM Z59.02 Unshelt ered homeBUD PoseyNE P 09/[address] [facility] HC PRO PHONE CALL 5-10 MIN [id number] [id number] Diagnos is: ICD-10- CM Z59.02 Unshelt ereBUD MiddletonNE P 09/[address] [facility] PT EDUCATION NOC INDIVID [id number] [id number] Diagnos is: ICD-10- CM Z59.9 Problem related to housing and economi c whitley daviseverardokenyaROSA ELBA M 09/[address] [facility] PSYTX W PT 60 MINUTES 54912-7.65 [id number] Diagnos is: ICD-10- CM F31.89 Other bipolar disorde r LAY XIONG L 10/03 [facility] [place] [facility] HC PRO PHONE CALL 11-20 MIN [id number] [id number] Diagnos is: ICD-10- CM Z59.02 Unshelt ered homeBUD Posey LAURA P 10/[address] [facility] Outpatient Encounter [id number] [id number] 10/04 [facility] Outpatient Encounter [id number] [id number] 10/05 [facility] [place] [facility] PSYTX W PT 30 MINUTES [id number] [id number] Diagnos is: ICD-10- CM Z59.02 Unshelt ered homesophie NGUYENBUD LAURA P 10/[address] [facility] PRO PHONE CALL 21-30 MIN 50906-2.65 [id number] 241 Diagnos is: ICD-10- CM Z59.9 Problem related to housing and economi c whitley daviseverardokenya HA ELBA M 10/[address] [facility] PRO PHONE CALL 21-30 MIN [id number] [id number] Diagnos is: ICD-10- CM Z59.9 Problem related to housing and economi c circums tances, unsp JANOCH,MAD LAURA P 10/16 [address] [facility] Outpatient Encounter [id number] [id number] 10/[address] [facility] Outpatient Encounter [id number]. [id number] 10/[address] [facility] Outpatient Encounter [id number] [id number] 10/17 [facility] Outpatient Encounter [id number] ABHILASHTAR A E 10/24 [facility] HC PRO PHONE CALL 21-30 MIN 56189-8.65 [id number] Diagnos is: ICD-10- CM Z59.9 Problem related to housing and economi c circums tances, unsp JANOCH,MAD LAURA P 10/26 [address] [facility] Outpatient Encounter [id number] NEHEMIASALLEY 10/26 [facility] CASE MANAGEMENT [id number] [id number] Diagnos is: ICD-10- CM Z59.89 Other problem s related to housing and economi c circums tances GREEN,LEANN SEA 10/31 [address] [facility] HC PRO PHONE CALL 5-10 MIN 94293-2.65 [id number] Diagnos is: ICD-10- CM Z59.9 Problem related to housing and economi c circums tances, unsp JANOCH,MAD LAURA P 11/02 [address] [facility] Outpatient Encounter [id number] [id number] 11/06 [facility] [place] [facility] HC PRO PHONE CALL 21-30 MIN [id number] [id number] Diagnos is: ICD-10- CM Z59.89 Other problem s related to housing and economi c circums LEANN Tsai SEA 11/08 [address] [facility] Outpatient Encounter [id number]. [id number] 11/09 [facility] [place] [facility] HC PRO PHONE CALL 21-30 MIN 13074-2.65 [id number] Diagnos is: ICD-10- CM Z59.89 Other problem s related to housing and economi c circums LEANN Tsai SEA 11/10 [address] [facility] [place] [facility] CASE MANAGEMENT [id number]. [id number] Diagnos is: ICD-10- CM Z59.89 Other problem s related to housing and economi c LEANN Leal SEA 11/14 [address] [facility] OFFICE O/P EST MOD 30 MIN [id number] [id number] Diagnos is: ICD-10- CM F10.20 Alcohol depende nce, uncompl icated JEROMY RAO E 11/14 [facility] [place] [facility] Outpatient Encounter [id number] [id number] 11/14 [address] [facility] Outpatient Encounter [id number] [id number] 11/15 [facility] Outpatient Encounter [id number] 11/16 [facility] HC PRO PHONE CALL 21-30 MIN [id number] [id number] Diagnos is: ICD-10- CM F10.20 Alcohol depende nce, uncompl icated CATE HUNG E 11/20 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 [place] [facility] CASE MANAGEMENT [id number] [id number] Diagnos is: ICD-10- CM Z59.89 Other problem s related to housing and economi c circums tances GREEN,LEANN SEA 11/23 [address] [facility] Outpatient Encounter [id number] [id number] 11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 ALEX BECK 11/29 [facility] [place] [facility] CASE MANAGEMENT [id number] [id number] Diagnos is: ICD-10- CM Z59.89 Other problem s related to housing and economi c circums tances GREEN,LEANN SEA 11/[address] [facility] [place] [facility] CASE MANAGEMENT [id number] [id number] Diagnos is: ICD-10- CM Z59.89 Other problem s related to housing and economi c circums tances GREEN,LEANN SEA 12/[address] [facility] Outpatient Encounter [id number] [id number] 12/05 [facility] Outpatient Encounter [id number] [id number] 12/[address] [facility] Outpatient Encounter 56927-6.65 [id number] 689 12/[address] [facility] Outpatient Encounter [id number] [id number] 12/07 [facility] Outpatient Encounter [id number] [id number] 12/08 [facility] Encounter [id number] [id number] 261 12/08 [facility] Encounter [id number] [id number] 660 12/[address] [facility] Outpatient Encounter [id number] [id number] 12/11 [facility] Outpatient Encounter [id number] [id number] 12/13 [facility] Outpatient Encounter [id number] [id number] 12/14 [facility] PSYTX W PT 30 MINUTES [id number] [id number] Diagnos is: ICD-10- CM F10.20 Alcohol depende nce, uncompl icated MARIE CLAROS 12/15 [facility] Encounter [id number] [id number] 12/22 [facility] OFFICE O/P EST MOD 30 MIN [id number] [id number] Diagnos is: ICD-10- CM F10.20 Alcohol depende nce, uncompl icated MAIRA,AN NA TRIXIE E 12/22 [facility] EMERGENCY DEPT VISIT [facility] [id number] [id number] Diagnos is: ICD-10- CM F10.20 Alcohol depende nce, uncompl icated MUDALLAL,O MAR 12/22 [facility] EMERGENCY DEPT VISIT [facility] [id number] [id number] Diagnos is: ICD-10- CM F10.20 Alcohol depende nce, uncompl icated MUDALLAL,O SEP 0601/08 [facility] Detoxifica tion Services for Substance Abuse Treatment [id number] [id number] Admit Reason: ALCOHOL DETOXIF ICATION KUSHAL GUNN SIR 12/22 [facility] Inpatient Encounter [id number] [id number] SUSI APPIAH HELLE E 12/23 [facility] Inpatient Encounter 58625-7.65 [id number] SUSI APPIAH HELLE E 12/23 [facility] Inpatient Encounter [id number] [id number] 002 SUSI APPIAH HELLE E 12/23 [facility] Inpatient Encounter [id number] [id number] SUSI APPIAH HELFLORIAN E 12/23 [facility] Inpatient Encounter [id number] [id number] SCOTT SALES L 12/23 [facility] Inpatient Encounter [id number]. [id number] SCOTT SALES L 12/23 [facility] PSYCH DIAG EVAL W/MED SRVCS [id number] [id number] 000 Diagnos is: ICD-10- CM F10.20 Alcohol depende nce, uncompl icated Dick VILLARREAL 12/23 [facility] HOSP IP/OBS DSCHRG MGMT >30 70775-4. [id number] Diagnos is: ICD-10- CM F10.20 Alcohol depende nce, uncompl icated LAKIA CHASE 12/23 [facility] N [facility] Inpatient Encounter [id number] [id number] 522 ULYSSESSUSI HELLE 12/23 [facility] [place] [address] [facility] CASE MANAGEMENT [id number] [id number] Diagnos is: ICD-10- CM Z59.89 Other problem s related to housing and economi c LEANN Leal 12/[address] [facility] Outpatient Encounter [id number] [id number] 12/27 [facility] [place] [address] CASE MANAGEMENT [id number] [id number] Diagnos is: ICD-10- CM Z59.89 Other problem s related to housing and economi c circums LEANN Tsai SEA 01/01 [address] [facility] CASE MANAGEMENT [id number] Diagnos is: ICD-10- CM Z59.89 Other problem s related to housing and economi c circums LEANN Tsai SEA 01/02 [address] [facility] HC PRO PHONE CALL 11-20 MIN [id number] [id number] Diagnos is: ICD-10- CM F10.20 Alcohol depende nce, uncompl icated MONETKapilREN GUCCI BOB 01/02 [facility] Outpatient Encounter [id number] [id number] 1 01/02 [facility] Outpatient Encounter [id number] [id number] REN PEREYRA 01/02 [facility] Outpatient Encounter [id number] [id number] Diagnos is: ICD-10- CM F10.20 Alcohol depende nce, uncompl icated MICHAEL SUAZO 01/03 [facility] Outpatient Encounter [id number] [id number] Ish TIAN 01/03 [facility] PSYTX W PT 30 MINUTES 51542-4.65 [id number] Diagnos is: ICD-10- CM F31.81 Bipolar II disorde r Ish TIAN 01/03 [facility] Outpatient Encounter [id number] [id number] 1 01/[address] [facility] Outpatient Encounter [id number]. [id number] 01/[address] [facility] Outpatient Encounter [id number] JAYLANIsh OSWALDO 01/05 [facility] Outpatient Encounter [id number] JAYLANIsh CHACON 01/08 [facility] PSYTX W PT 60 MINUTES 08324-4. [id number] Diagnos is: ICD-10- CM F10.239 Alcohol depende nce with withdra brenna, unspeci fied Ish TIAN 01/09 [facility] Outpatient Encounter [id number] 01/09 [facility]NAG[facility] [id number] Diagnos is: ICD-10- CM Z59.89 Other problem s related to housing and economi c circums LEANN Tsai 01/12 [address] [facility] HC PRO PHONE CALL 11-20 MIN 71508-2. [id number] Diagnos is: ICD-10- CM F10.20 Alcohol depende nce, uncompl icated REN PEREYRA 01/15 [facility] Outpatient Encounter [id number] [id number] 01/15 [facility] Outpatient Encounter [id number] REN PEREYRA LISBETH 01/15 [facility] OFFICE O/P EST MOD 30 MIN [id number] [id number] Diagnos is: ICD-10- CM F43.10 Post-tr aumatic stress disorde r, unspeci JEROMY Dorantes TRIXIE E 02/02 [facility] Outpatient Encounter [id number] [id number] 1 02/20 [facility] Outpatient Encounter [id number] [id number] 03/07 [facility] [place] [address] [facility] CASE MANAGEMENT [id number] [id number] Diagnos is: ICD-10- CM Z59.89 Other problem s related to housing and economi c circums taneverardo GREEN,LEANN SEA 03/09 [address] [facility] Outpatient Encounter [id number] [id number] GREEN,LEANN SEA 03/09 [facility] Outpatient Encounter [id number] [id number] GREEN,LEANN SEA 03/09 [facility] OFFICE O/P EST MOD 30 MIN [id number] [id number] Diagnos is: ICD-10- CM F43.10 Post-tr aumatic stress disorde r, unspeci JEROMY Dorantes NA TRIXIE E 03/22 [facility] Outpatient Encounter [id number] [id number] 03/27 [facility] Outpatient Encounter [id number] [id number] JAYLANIsh CHACON 03/27 [facility] QNHP OL DIG ASSMT&MGMT 5-10 [id number] [id number] Diagnos is: ICD-10- CM F43.10 Post-tr aumatic stress disorde r, unspeci fied AKASHBELLA RONALD S 03/27 [facility] HC PRO PHONE CALL 11-20 MIN [id number] [id number] Diagnos is: ICD-10- CM F10.220 Alcohol depende nce with intoxic ation, uncompl icated JAYLANIsh CLEVELANDDick 03/27 [facility] Outpatient Encounter [id number] [id number] 04/01 [facility] CRISIS INTERVEN SVC, 15 MIN 13388-4.65 [id number] Diagnos is: ICD-10- CM F43.12 Post-tr aumatic stress disorde r, chronic O'JO,CO LLEEN E 04/01 [facility] HLTH BHV ASSMT/REAS SESSMENT 76944-5.65 [id number] Diagnos is: ICD-10- CM Z78.9 Other specifi ed health status MORE LOPEZ 04/03 [facility] Outpatient Encounter [id number] [id number] MARIE CLAROS 04/04 [facility] Outpatient Encounter [id number] [id number] 04/04 [facility] Outpatient Encounter [id number] [id number] 04/05 [facility] Outpatient Encounter [id number] JAYRO ANTONIO 04/06 [facility] Outpatient Encounter [id number] 7 REN PEREYRA 04/06 [facility] HC PRO PHONE CALL 5-10 MIN [id number] [id number] Diagnos is: ICD-10- CM F10.20 Alcohol depende nce, uncompl icated REN PEREYRA 04/09 [facility] Outpatient Encounter [id number] REN PEREYRA 04/[address] [facility] CASE MANAGEMENT [id number] Diagnos is: ICD-10- CM Z59.89 Other problem s related to housing and economi c circums LEANN Tsai 04/[address] [facility] Outpatient Encounter [phone] [id number] 04/12 [facility] OFFICE O/P EST MOD 30 MIN [id number] Diagnos is: ICD-10- CM F43.10 Post-tr aumatic stress disorde r, unspeci fied JEROMY RAO 05/04 [facility] Outpatient Encounter [id number] 05/[facility] [place] [facility] Outpatient Encounter [id number] Ish TIAN 06/07 [facility] HC PRO PHONE CALL 11-20 MIN [id number] Diagnos is: ICD-10- CM F10.20 Alcohol depende nce, uncompl icated MARIE CLAROS 06/08 [facility] OFFICE O/P EST MOD 30 MIN [id number] Diagnos is: ICD-10- CM F43.10 Post-tr aumatic stress disorde r, unspeci JEROMY Dorantes 06/29 [facility] Outpatient Encounter [id number] Ish TIAN 07/25 [facility] PH1 ASSMT&MGMT NQHP 5-10 [id number] Diagnos is: ICD-10- CM F10.220 Alcohol depende nce with intoxic ation, uncompl icated Ish TIAN 07/25 [facility] SYNCH AUDIO-ONLY EST MOD 30 [id number] Diagnos is: ICD-10- CM F43.10 Post-tr aumatic stress disorde r, unspeci JEROMY Dorantes TRIXIE E 08/24 [facility] Outpatient Encounter [id number] 08/27 [facility] PSYTX W PT W E/M 30 MIN [id number] Diagnos is: ICD-10- CM F43.10 Post-tr aumatic stress disorde r, leanni JEROMY Dorantes VINITA MARCUM E 11/08 [facility] Outpatient Encounter [id number] 02/08 [facility] PSYTX W PT W E/M 30 MIN [id number] Diagnos is: ICD-10- CM F43.10 Post-tr aumatic stress disorde r, leanni fay RAO,JEROMY VINITA TRIXIE E 02/13 [facility] Procedures Combined list of: 1) Procedures from Department of [facility] Affairs facilities going back up to thelast 18 months, not all [place] non-surgical procedures are included; 2) All procedures from the Department of Defense facilities. Procedure Procedure Type Code Date Perfomer Comments [facility] e Audiometry Group Testing Audiometry Group Testing 93827 MANUEL BASURTO [facility] Venipuncture Venipuncture 39650 YESSENIA LEE [facility] RBC G6PD Screening RBC G6PD Screening 65396 02/02 YESSENIA LEE Td Vaccine Seven Years Of Age And Above Preservative Free Td Vaccine Seven Years Of Age And Above Preservative Free 18556 YESSENIA FONG [facility] Immunization Administration Each Additional Vaccine Immunization Administration Each Additional Vaccine 52858 YESSENIA FONG [facility] Immunization Administration One Vaccine Immunization Administration One Vaccine 62083 YESSENIA LEE [facility] Preventive Med Standardized Depre ion Screening: Negative For Symptoms Preventive Med Standardized Depression Screening: Negative For Symptoms [id number] YESSENIA LEE During a uldl-ey-hste encounter, I personally reviewed the responses given on the PHQ8 or the SAT by the individual RICHARD Inktank which were recorded by the individual on the [facility] website or the required hardcopy SAT. [facility] Non-Physician Phone Call To Patient/Provider Brief (5-10min) Non-Physician Phone Call To Patient/Provider Brief (5-10min) [id number] [id number] SARA MACK [facility] Psychologic Testing And Report Administered By Computer Psychologic Testing And Report Administered By Computer 16394 018 KEVIN CATES [facility] Non-Physician Phone Call To Patient/Provider Brief (5-10min) Non-Physician Phone Call To Patient/Provider Brief (5-10min) 62224 018 SARA MACK [facility] Vaccines Viral Varicella (Active) Vaccines Viral Varicella (Active) 69314 018 GOMEZ [facility] Immunization Administration One Vaccine Immunization Administration One Vaccine 37476 018 [facility] Immunization Administration Each Additional Vaccine Immunization Administration Each Additional Vaccine 77280 018 [facility] Athletic Training Re-evaluation Athletic Training Re-evaluation 77487 018 CIARA KEMP [facility] Exercises A isted Exercises For ROM Exercises Assisted Exercises For ROM 44505 018 VIRIDIANACIARA IVONNE [facility] Foot, arch support, removable, premolded, longitudinal, each 018 VIRIDIANACIARA IVONNE [facility] Physical Therapy Education Orthotics Training Physical Therapy Education Orthotics Training 83002 018 CIARA KEMP [facility] Vaccines Viral Varicella (Active) Vaccines Viral Varicella (Active) 10729 018 [facility] Immunization Admin Intranasal / Oral Each Additional Vaccine Immunization Admin Intranasal / Oral Each Additional Vaccine 27505 018 [facility] Vaccines Adenovirus Type 4 Live, For Oral Use Vaccines Adenovirus Type 4 Live, For Oral Use 11056 018 [facility] Vaccines Adenovirus Type 7 Live, For Oral Use Vaccines Adenovirus Type 7 Live, For Oral Use 32073 018 [facility] Immunization Administration Each Additional Vaccine Immunization Administration Each Additional Vaccine 16671 018 [facility] Vaccines Viral Polio, Inactivated (Salk) Vaccines Viral Polio, Inactivated (Salk) 78452 018 [facility] Tdap Vaccine Tdap Vaccine 02887 018 MESHA GOMEZ [facility] Immunization Administration One Vaccine Immunization Administration One Vaccine 54114 018 MESHA GOMEZ [facility] Determination Of Refractive State Determination Of Refractive State 13056 018 VLAD CHEATHAM [facility] Spectacles Services Fitting Monofocals (Not For Aphakia) [employer] Fitting Monofocals (Not For Aphakia) 74077 018 VLAD CHEATHAM Ophthalmological New Patient Start Intermediate Level Care Ophthalmological New Patient Start Intermediate Level Care [id number] 018 VLAD CHEATHAM [facility] Non-Physician Phone Call To Patient/Provider Brief (5-10min) Non-Physician Phone Call To Patient/Provider Brief (5-10min) 51773 REY MAN [facility] Psychiatric Evaluation Psychiatric Evaluation 35091 ALYCIA MCGUIRE [facility] Psychiatric Therapy Preparation of Psychiatric Status Report Psychiatric Therapy Preparation of Psychiatric Status Report 55120 ALYCIA MCGUIRE [facility] TELE ASSESS & MGT SRV PROV QUAL NONPHYS HLTH CARE PRO TO EST PAT,PARENT,GUARD NOT ORIG REL ASSESS & MGT SRV PROV W/IN PREV 7 DAYS NOR LEAD ASSESS & MGT SRV/PX W/IN NXT 24 HR/SOON APT;5-10 MIN MED DIS 018 [facility] TELE ASSESS & MGT SRV PROV QUAL NONPHYS HLTH CARE PRO TO EST PAT,PARENT,GUARD NOT ORIG REL ASSESS & MGT SRV PROV W/IN PREV 7 DAYS NOR LEAD ASSESS & MGT SRV/PX W/IN NXT 24 HR/SOON APT;5-10 MIN MED DIS 018 [facility] PSYCHOLOGICAL TSTING (INCL PSYCHODIAG ASSESSMNT, EMOTITY, INTELLECTUAL ABILITIES, PERSONALITY &PSYCHOPATHOLOGY, EG, MMPI), ADMINISTERED COMPUTER, W QUALIFIED HEALTH READINESS PARAPROFESSIONAL INTERPRET &RPT 018 [facility] VARICELLA VIRUS VACCINE (LESLYE), LIVE, FOR SUBCUTANEOUS USE 018 [facility] RE-EVAL,ATHLETIC TRAINING ESTAB PLAN OF CARE REQ:ASSES,CUR FUNC STAT WHEN DOC CHANGE;REV PLAN OF CARE,STAND,ASSESS INSTR &/LINDY ASSESS,FUNC OUTCOME W UPDATE,20 MIN [id number] W THE PATIENT &/FAMILY 018 [facility] FOOT, ARCH SUPPORT, REMOVABLE, PREMOLDED, LONGITUDINAL, EACH [facility] INFLUENZA VIRUS VACCINE, QUADRIVALENT (CCIIV4), DERIVED FROM CELL CULTURES, SUBUNIT, PRESERVATIVE AND ANTIBIOTIC FREE, 0.5 ML DOSAGE, FOR INTRAMUSCULAR USE [facility] FITTING OF SPECTACLES, EXCEPT FOR APHAKIA; MONOFOCAL [facility] EAR MOLD/INSERT, NOT DISPOSABLE, ANY TYPE [facility] PSYCHIATRIC DIAGNOSTIC EVALUATION [facility] PSYCHIATRIC DIAGNOSTIC EVALUATION [facility] TELE ASSESS & MGT SRV PROV QUAL NONPHYS HLTH CARE PRO TO EST PAT,PARENT,GUARD NOT ORIG REL ASSESS & MGT SRV PROV W/IN PREV 7 DAYS NOR LEAD ASSESS & MGT SRV/PX W/IN NXT 24 HR/SOON APT;5-10 MIN MED DIS [facility] AUDIOMETRIC TESTING OF GROUPS [facility] IMMUNIZATION ADMINISTRATION (INCLUDES PERCUTANEOUS, INTRADERMAL, SUBCUTANEOUS, OR INTRAMUSCULAR INJECTIONS); 1 VACCINE (SINGLE OR COMBINATION VACCINE/TOXOID) [facility] Social History Combined list of available smoking, tobacco, and other social history from Department of Defense and Veterans Affairs facilities. Social History Type Response Date Comment Sour e This section is an empty social history section. [facility]
--- OUTSIDE RECORDS SUMMARY | 2025-02-18 16:00 | XMS_ITS | Encounter Summary ---
Author Organization [facility] Healthcare Address [address] [place] [address] Care Team Providers Care Tankerman Name Role Phone Morgan Turner MD Primary Care Provider [phone] Ashish Morrow MD Unavailable [phone] Reason for Visit * Reason Comments Vivitrol Injection Encounter Details Date Type Department Care Team (Latest Contact Info) Description 02/18/2025 4:00 PM CDT Clinical Support Family Physicians of [address] [place] [address] Alcohol dependence with uncomplicated intoxication (HCC) (Primary Dx); Hypoglycemia Social History Tobacco Use Types Packs/Day Years Used Date Smoking Tobacco: Every Day Vaping Alcohol Use Standard Drinks/Week Comments Yes 0 (1 standard drink = 0.6 oz pur e alcohol) Pint of alcohol a day [facility] Utilities Answer Date Recorded In the past 12 months has [employer], [employer], oil, or water [employer] threatened to shut off services in your [...] 07/25/2024 How often do you attend chur or sikh services? Never 07/25/2024 Do you belong to any clubs o r organizations such as jehovah's witness groups, unions, fraternal or athletic groups, or [...] any time in the past 12 [facility], were you homeless or living in a intermediate (including now)? No 07/25/2024 Personal Safety Answer [...] on file Legal Sex Female 6:50 PM SOLUTION CONSULTANT Gender Identity Not on file Sexual Orientation Not on file documented as of this encounter Last Filed Vital Signs Vital Sign Reading Time Taken Comments Blood Pressure - - Pulse - - Temperature - - Respiratory Rate - - Oxygen Saturation - - Inhaled Oxygen Concentration - - Weight 64 kg (141 lb 3.2 oz) 02/18/2025 4:32 PM CDT Height - - Body Mass Index 20.85 11/01/2024 1:49 PM CDT documented in this encounter Progress Notes * Nena Souza MA - 02/18/2025 4:00 PM CDT Patient here for her monthly Vivitrol injection. Gave injection in her right dorsogluteal buttock. Next injection due 03/20/25. Patient requested her blood glucose be checked due to hypoglycemia. She states she was told if her BS is below 70, she needs to go to the ED. Blood glucose at time of visit is 86. Patient also requested a weight check which is 141.2 lb today. Patient requested I call her significant other, Vesta Garcia, to notify her that patient received her injection today. Attempted to call 2x but unable to LM due to VM full. documented in this encounter Plan of Treatment Upcoming Encounters Date Type Department Care Team (Latest Contact Info) Description 03/05/2025 1:00 PM CDT Hospital Encounter [facility] [address] [place] [address] Ashish Morrow MD [address] [place] [address] DR MCCONNELL [address] [place] [address] 03/05/2025 1:00 PM CDT - 03/05/2025 1:30 PM CDT Surgery [facility] 1 [place] [address] Ashish Morrow MD [address] [place] [address] [address] ESOPHAGOGASTRODUODENOSCOPY Scheduled Procedures Name Priority Associated Diagnoses Date/Ti me ESOPHAGOGASTRODUODENOSCOPY Erosive esophagitis 03/05/2025 1:00 PM CDT documented as of this encounter Procedures Procedure Name Priority Date/Time Associated Diagnosis Comments POCT GLUCOSE Routine 02/18/2025 4:20 PM CDT Hypoglycemia documented in this encounter Results * POCT glucose (02/18/2025 4:20 PM CDT) Glucose Blood, POC 86 Normal Fasting 70 - 100, Random <200 mg/dL Capillary blood 02/18/2025 4 :20 PM CDT Morgan Turner MD POINT OF CARE TEST ORDERA BLES Final Result documented in this encounter Visit Diagnoses Diagnosis Erosive esophagitis- Primary Other esophagitis Alcohol dependence with uncomplicated intoxication (HCC)- Primary Hypoglycemia Hypoglycemia, unspecified Erosive esophagitis Other esophagitis documented in this encounter Administered Medications Active Administered Medications - up to 3 most recent administrations Medication Order MAR Action Action Date Dose Rate Site naltrexone microspheres (VIVITROL) intramuscular injection 380 mg 380 mg, intramuscular, Every 30 days, First dose on Tue02/18/25 at 1630, Refrigerate. Prior to reconstitution, allow drug vial and provided diluent to reach room temperature (~45 minutes). Refer to package insert for reconstitution and administration instructions.Indications:Al cohol dependence with uncomplicated intoxication (HCC) Given 02/18/2025 3:59 PM CDT 380 mg Right Dorsogluteal/Butt ock documented in this encounter Orders Medications Ordered That Cristian ht Not Have Been Administered Count Last Ordered Date First Ordered Date naltrexone microspheres (SHARON ITROL) intramuscular injection 380 mg 1 02/18/2025 documented in this encounter Care Teams Tankerman Relationship Specialty Start Date End Date [place] [address] PCP - General Family Medicine 01/18/24 Ashish Morrow MD [address] [address] Consulting Physician Gastroenterology 06/09/24 documented as of this encounter
[2025-02-19 03:50] VITALS: BP 108/68; PULSE 65; RESP 24; TEMP 36.5; O2SAT 100
[2025-02-19] MEDS: LACTATED RINGERS 1,000 ML 999 ML IV CONT ×2 (04:32→06:25)
--- NOTE | 2025-02-19 04:44 | PC.NURSE ---
Pt reports pain. EDP made aware. No new orders at this time.
--- OUTSIDE RECORDS SUMMARY | 2025-02-19 05:03 | XMS_ITS | Encounter Summary ---
Author Organization [facility] Healthcare Address [address] [place] [address] Care Team Providers Care Data Warehouse Developer Name Role Phone Morgan Turner MD Primary Care Provider [phone] Ashish Morrow MD Unavailable [phone] Loida AburtoW Unavailable [phone] Encounter Details Date Type Department Care Team (Late st Contact Info) Description 07/25/2024 Telephone Family Physicians [facility] [address] [facility] [place] [address] Morgan Turner MD [address] [place] [address] Social History Tobacco Use Types Packs/Day Years Used Date Smoking Tobacco: Every Day Vaping Alcohol Use Standard Drinks/Week Comments Yes 0 (1 standard drink = 0.6 oz pur e alcohol) Pint of alcohol a day [facility] Utilities Answer Date Recorded In the past 12 months has [employer] electric, gas, oil, or water company threatened [...] week 07/25/2024 How often do you attend [facility] or congregational services? Never 07/25/2024 Do you belong to [...] any time in the past 12 m [facility], were you homeless or living [...] on file Legal Sex Female 6:50 PM BUSINESS CENTER REPRESENTATIVE Gender Identity Not on file Sexual Orientation Not on file documented as of this encounter Miscellaneous Notes * Telephone Encounter - Bridget Geiger - 07/25/2024 9:07 AM CST NESS CENTER REPRESENTATIVE documented in this encounter Plan of Treatment Upcoming Encounters Date Type Department Care Team (Latest Contact Info) Description 03/05/2025 1:00 PM CDT Hospital Encounter [address] [address] Ashish Morrow MD [address] [place] [address] [place] [address] 03/05/2025 1:00 PM CDT - 03/05/2025 1:30 PM CDT Surgery [address] [address] Ashish Morrow MD [address] [place] [address] [place] [address] ESOPHAGOGASTRODUODENOSCOPY Scheduled Procedures Name Priority Associated Diagnoses Date/Ti me ESOPHAGOGASTRODUODENOSCOPY Erosive esophagitis 03/05/2025 1:00 PM CDT documented as of this encounter Visit Diagnoses Not on filedocumented in this encounter Care Teams Data Warehouse Developer Relationship Specialty Start Date End Date Morgan Turner MD [address] [place] [address] PCP - General Family Medicine 01/18/24 Ashish Morrow MD [address] [place] [address] [place] [address] Consulting Physician Gastroenterology 06/09/24 Loida Aburto, [address] [place] [address] Grain Combiner 07/25/24 09/06/24 documented as of this encounter
--- OUTSIDE RECORDS SUMMARY | 2025-02-19 05:03 | XMS_ITS | Clinical Summary ---
Author Organization [facility] [employer] Address [address] [place] [address] Care Team Providers Care Stoper Name Role Phone Unavailable Primary Care Provider Unavailabl e Source Comments [facility],non-owned Affiliates and Associated Physician Practices is amultiple site organization consisting of ambulatory clinics and hospital sitesin [place], [place], [place] and [place]. This disclosure is being madepursuant to the Care Everywhere program and may not contain all information available regarding this patient. Last updated 18.[facility] [employer] Allergies No known active allergies Medications * [...] housing, medical care, and heating? Hard 10/29/2022 [facility] [employer] of Occupat ional Health - Occupational Stress [...] place to sleep or slept in a custodial (including now)? No 10/29/2022 Comments Unknown Sex and Gender Information Value Date Recorded Sex Assigned at Not on file Legal Sex Female 3:07 PM RIVETING MACHINE OPERATOR TAPE CONTROL Gender Identity Not on file Sexual Orientation [...]
--- OUTSIDE RECORDS SUMMARY | 2025-02-19 05:03 | XMS_ITS | Encounter Summary ---
Author Organization [facility] Healthcare Address [address] [place] [address] Care Team Providers Care Solar System Installer Name Role Phone No, Physician Primary Care Provider [phone] Morgan Turner MD Primary Care Provider [phone] Ashish Morrow MD Unavailable [phone] Silvia Zhang MA Unavailable Unavailable Loida Aburto LCSW Unavailable [phone] Encounter Details Date Type Department Care Team (Late st Contact Info) Description 01/16/2024 [facility] Post Discharge Follow up phone call [address] [address] Dhara Laughlin, RN Social History Tobacco Use Types Packs/Day Years Used Date Smoking Tobacco: Every Day Vaping Alcohol Use Standard Drinks/Week Comments Yes 0 (1 standard drink = 0.6 oz pur e alcohol) Pint of alcohol a day [facility] Utilities Answer Date Recorded In the past 12 months has [employer] electric, gas, oil, or water company threatened [...] week 01/12/2024 How often do you attend [facility] or jewish services? Never 01/12/2024 Do you belong to [...] 21 01/18/2024 Housing Stability Vital Sign Answer Derirck e Recorded In the last 12 months, was t here a time when you were not able to pay the mortgage or rent on time? No 01/12/2024 In the past 12 months, how m any times have you moved where you were living? 0 01/12/2024 At any time in the past 12 m [facility], were you homeless or living in a mcc (including now)? No 01/12/2024 Personal Safety Answer [...] on file Legal Sex Female 6:50 PM FIELD FOREMAN Gender Identity Not on file Sexual Orientation [...] Description 03/05/2025 1:00 PM CDT Hospital Encounter [address] [address] Ashish Morrow MD [address] [place] [address] [place] [address] 03/05/2025 1:00 PM CDT - 03/05/2025 1:30 PM CDT Surgery [address] [address] Ashish Morrow MD [address] [place] [address] DR [address] [place] [address], [place] [address] ESOPHAGOGASTRODUODENOSCOPY Scheduled Procedures Name Priority Associated Diagnoses Date/Ti ca ESOPHAGOGASTRODUODENOSCOPY Erosive esophagitis 03/05/2025 1:00 PM CDT documented as of this encounter Visit Diagnoses Not on filedocumented in this encounter Care Teams Solar System Installer Relationship Specialty Start Date End Date No, Physician PCP - General 01/11/24 01/17/24 Morgan Turner MD [address] [place] [address] PCP - General Family Medicine 01/18/24 Ashish Morrow MD [address] [place] [address] [place] [address] Consulting Physician Gastroenterology 06/09/24 Silvia Zhang, MA [address] [address] [address] [facility] [address] [place] [address] [employer] Care Laundry Room Attendant 07/24/24 07/24/24 Loida Aburto, RUSSIAN LANGUAGE PROFESSOR [address] [facility] [place] [address] Hearing Aid Consultant 07/25/24 09/06/24 documented as of this encounter
--- OUTSIDE RECORDS SUMMARY | 2025-02-19 05:03 | XMS_ITS | Clinical Summary ---
Author Organization [facility] Address [address] [facility] [facility] [place] [address] Phone Care Team Providers Care Coring Machine Operator Name Role Phone Provider, None Primary Care [...] or slept in a prison (including now)? Patient declined 12/02/2023 Comments Unknown [...] measures to stabilize the patient. Care Teams Coring Machine Operator Relationship Specialty Start Date End Date Provider, None [place] PCP - General 12/02/23
--- OUTSIDE RECORDS SUMMARY | 2025-02-19 05:03 | XMS_ITS | Encounter Summary ---
Author Organization [facility] Healthcare Address [address] [place] [address] Care Team Providers Care Oil Prospecting Observer Name Role Phone Morgan Turner MD Primary Care Provider [phone] Ashish Morrow MD Unavailable [phone] Encounter Details Date Type Department Care Team (Late st Contact Info) Description 02/18/2025 Telephone Family Physicians [facility] [address] [facility] [place] [address] Morgan Turner MD [address] [place] [address] Social History Tobacco Use Types Packs/Day Years Used Date Smoking Tobacco: Every Day Vaping Alcohol Use Standard Drinks/Week Comments Yes 0 (1 standard drink = 0.6 oz pur e alcohol) Pint of alcohol a day [facility] Utilities Answer Date Recorded In the past 12 months has [employer], gas, oil, or water [facility] threatened to shut off services in your [...] often do you attend [facility] [place] or islam services? Never 07/25/2024 Do you belong to any clubs o r organizations such as faith groups, unions, fraternal or athletic groups, or [...] any time in the past 12 m [facility], were you homeless or living in a senior care (including now)? 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 She requested I call her significant other, Vesta Garcia, to notify her that patient received her injection today. Attempted to call 2x but unable to LM due to VM full. Please notify Vesta pt did receive her Vivitrol injection today if she returns the call. documented in this encounter Plan of Treatment Upcoming Encounters Date Type Department Care Team (Latest Contact Info) Description 03/05/2025 1:00 PM CDT Hospital Encounter [address] [address] Ashish Morrow MD [address] [facility] [address] MCCONNELL [address] [place] [address] 03/05/2025 1:00 PM CDT - 03/05/2025 1:30 PM CDT Surgery [address] [address] Ashish Morrow MD [address] [facility] [address] MCCONNELL [address] [place] [address] ESOPHAGOGASTRODUODENOSCOPY Scheduled Procedures Name Priority Associated Diagnoses Date/Ti oh ESOPHAGOGASTRODUODENOSCOPY Erosive esophagitis 03/05/2025 1:00 PM CDT documented as of this encounter Visit Diagnoses Not on filedocumented in this encounter Care Teams Oil Prospecting Observer Relationship Specialty Start Date End Date Morgan Turner MD [address] [place] [address] PCP - General Family Medicine 01/18/24 Ashish Morrow MD [address] [place] [address] [place] [address] Consulting Physician Gastroenterology 06/09/24 documented as of this encounter
--- OUTSIDE RECORDS SUMMARY | 2025-02-19 05:03 | XMS_ITS | Clinical Summary ---
Author Organization [facility] Address [address] [place] [address] Care Team Providers Care Backing In Machine Tender Name Role Phone Morgan Turner MD Primary Care Provider [phone] Ashish Morrow MD Unavailable [phone] Allergies Active Allergy Reactions Criticality Noted Date Comments Permethrin Hives Medium 08/08/2024 Mclean odor spray cashmere rodas Levonorgestrel-Ethinyl Estrad Vomiting [...] IM Every 30 days 12/11/2024 Act el naltrexone microspheres (VIVITROL) intramuscular injection 380 mgIndications:Alcohol dependence with uncomplicated intoxication (HCC) 380 mg IM Every 30 days 02/18/2025 Act el Active Problems Problem Noted Date [...] b.i.d. Assessment & Plan (08/20/2024 4:15 PM FITTER ARMAMENT): Stable, generally well controlled, occasional episodes, generally gets relief on own Continue pantoprazole 40 mg b.i.d.; encourage avoidance of inciting substances including alcohol Hematemesis with nausea 06/08/2024 Upper GI bleed 06/07/2024 Chronic alcoholic gastritis 04/12/2024 Assessment & Plan (08/30/2024 4:37 PM FITTER ARMAMENT): Not well controlled; continues to have some abdominal pain, nausea, decreased appetite well drinking alcohol Encourage alcohol cessation Continue pantoprazole 40 mg b.i.d. Assessment & Plan (07/23/2024 11:09 AM FITTER ARMAMENT): Currently on pantoprazole. EGD scheduled in the summer. Assessment & Plan (07/17/2024 4:44 PM FITTER ARMAMENT): Stable, well controlled; no current stomach pain, [...] 01/18/2024 Assessment & Plan (08/30/2024 4:36 PM FITTER ARMAMENT): Stable, well controlled; follows with MD for medication management; continue quetiapine 25 mg nightly Assessment & Plan (08/20/2024 4:14 PM FITTER ARMAMENT): Stable, generally well controlled, no recent episodes [...] follow with counseling and psychiatry services through MD Major depressive disorder, single episode, unspe cified 01/18/2024 Assessment & Plan (11/15/2024 6:06 PM CDT): Generally well controlled, patient reports she is in a better mood; is in regular contact with her significant other Follows with psychiatry in individual counseling through the [facility] Assessment & Plan (10/15/2024 2:51 PM CDT): Stable, follows with psychiatry at the [facility] for management Continue Seroquel 25 mg nightly, [...] move soon based upon housing availability from [facility] Posttraumatic stress disorder 01/18/2024 Assessment & [...] disorder Assessment & Plan (07/23/2024 11:11 AM FITTER ARMAMENT): Has supportive friend and father. Encouraged working [...] gastritis Assessment & Plan (08/30/2024 4:36 PM FITTER ARMAMENT): Not well controlled; patient reports drinking about [...] withdrawal Assessment & Plan (08/20/2024 4:14 PM FITTER ARMAMENT): Not well controlled, not currently drinking, but has had severe cravings, patient has multiple episodes episodic binge drinking Patient had generally has good relief with the medication Continue Vivitrol every 30 days; acamprosate 666 mg t.i.d. Assessment & Plan (07/23/2024 11:11 AM FITTER ARMAMENT): Will proceed to [facility] ED for Vivitrol injection today. Will return for her follow-up appointment in 10 days with PCP. Encouragement provided. Safety reviewed. Assessment & Plan (07/17/2024 4:43 PM FITTER ARMAMENT): Stable, improving; no alcohol since last visit; due for injection on July 15, but would like to delay in order to allow for some alcohol use Discourage delay; would continue naltrexone monthly; add acamprosate 2 tablets t.i.d. Assessment & Plan (06/07/2024 4:51 PM FITTER ARMAMENT): Not well controlled, can had recent relapse, [...] doing better at this time; engaged with transition coach; discussion with Peer hazardous waste management specialist today Encouraged continued work towards complete [...] Encounters Date Type Department Care Team Description 02/18/2025 4:00 PM CDT Clinical Support [facility] [address] [address] Alcohol dependence with uncomplicated intoxication (HCC) (Primary Dx); Hypoglycemia 02/18/2025 Telephone [facility] [address] [address] Morgan Turner MD 02/13/2025 Telephone [facility] [address] [address] Morgan Turner MD 01/14/2025 1:15 PM CDT Clinical Support [facility] [address] [address] 01/14/2025 Telephone [facility] [address] [address] Morgan Turner MD 01/08/2025 Telephone [facility] [address] [address] Morgan Turner MD 12/14/2024 Nurse Triage [facility] [address] [address] Morgan Turner MD 12/11/2024 9:15 AM CDT Clinical Support [facility] [address] [address] Alcohol dependence with uncomplicated intoxication (HCC) (Primary Dx) 12/11/2024 Telephone [facility] [address] [address] Morgan Turner MD Med Refill 12/11/2024 Telephone [facility] [address] [address] Nena Souza MA Vivitrol Injection Re-Order 12/10/2024 Telephone [facility] [address] [address] Morgan Turner MD Medical Question/Miscellane ous 12/10/2024 Telephone [facility] Gastroenterology at [address] [place] [address] [place] 11/30/2024 Telephone [facility] Gastroenterology at [address] [place] [address] Hailey Arango Appointment 11/29/2024 Telephone [facility] [address] [address] Morgan Turner MD Vivitrol Injection from Last [...] e alcohol) Pint of alcohol a day [facility] Utilities Answer Date Recorded In the past [...] often do you attend chur ch or oriental orthodox services? Never 07/25/2024 Do you belong to any clubs o r organizations such as sikhism groups, unions, fraternal or athletic groups, or [...] any time in the past 12 m [place], were you homeless or living in a [...] on file Legal Sex Female 6:50 PM FITTER ARMAMENT Gender Identity Not on file Sexual Orientation [...] CDT Inhaled Oxygen Concentration - - Weight 64 kg (141 lb 3.2 oz) 02/18/2025 4:32 PM CDT Height 175.3 cm (5' 9) 11/01/2024 1:49 PM CDT Body Mass Index 20.85 11/01/2024 1:49 PM CDT Plan of Treatment Upcoming Encounters Date Type Department Care Team (Latest Contact Info) Description 03/05/2025 1:00 PM CDT Hospital Encounter [facility] [address] [place] [address] Ashish Morrow MD [address] [place] [address] [address] [place] [address] 03/05/2025 1:00 PM CDT - 03/05/2025 1:30 PM CDT Surgery [facility] [address] [place] [address] Ashish Morrow MD [address] [facility] [address] [place] [address] ESOPHAGOGASTRODUODENOSCOPY Scheduled Procedures Name Priority Associated Diagnoses [...] 11/02/2017, 0 09/30/2017, 04/21/2010, Additional history exists Procedures Procedure Name Priority Date/Time Associated Diagnosis Comments POCT GLUCOSE Routine 02/18/2025 4:20 PM CDT Hypoglycemia from Last 3 Months Results * POCT glucose (02/18/2025 4:20 PM CDT) Glucose Blood, POC 86 Normal Fasting 70 - 100, Random <200 mg/dL Capillary blood 02/18/2025 4 :20 PM CDT Morgan Turner MD POINT OF CARE TEST ORDERA BLES Final Result from Last 3 Months Insurance Advance Directives For more information, please contact: [phone] * Full Code (Latest Code Status on File) Date Activated Date Inactivated Comments 06/09/2024 9:37 AM 06/09/2024 7:14 PM * Full Code Date Activated Date Inactivated Comments 06/08/2024 3:33 AM 06/09/2024 9:37 AM * Full Code Date Activated Date Inactivated Comments 01/11/2024 7:42 AM 01/13/2024 6:46 PM Care Teams Backing In Machine Tender Relationship Specialty Start Date End Date Morgan [place] [address] PCP - General Family Medicine 01/18/24 Ashish Morrow MD [address] [place] [address] [place] [address] Consulting Physician Gastroenterology 06/09/24
--- NOTE | 2025-02-19 05:04 | ED.GENADULT ---
HPI - General Adult General Chief complaint: Alcohol Stated complaint: UNKNOWN History of Present Illness HPI narrative: 29-year-old female presented to the emergency department for evaluation for nausea vomiting and hand cramping. Patient did drink approximately 1/5 of a handle of bo[employer] [facility] [employer] History[employer] today. Patient denies any recent nausea or vomiting but states she was having some lightheadedness dizziness and hand cramping Related Data Home Medications ?Medication ?Instructions ?Recorded ?Confirmed ?Last Taken ?Type naltrexone microspheres 380 mg 380 mg IM MONTHLY 01/14/25 02/16/25 01/14/25 History intramuscular suspension,extended release (Vivitrol) acamprosate 333 mg tablet,delayed 666 mg PO TID 02/16/25 02/16/25 Unknown History release hydroxyzine HCl 50 mg tablet 50 mg PO TID PRN anxiety 02/16/25 02/16/25 Unknown History pantoprazole 40 mg tablet,delayed 40 mg PO Q12H 02/16/25 02/16/25 Unknown History release thiamine HCl (vitamin B1) 100 mg 100 mg PO DAILY 02/16/25 02/16/25 Unknown History tablet (Vitamin B-1) Allergies Allergy/AdvReac Type Severity Reaction Status Date / Time No Known Allergies Allergy Verified 02/16/25 21:51 [facility] Past Medical History Medical History (Updated 02/19/25 @ 06:32 by Stewart Hernandez MD) Alcohol abuse PTSD (post-traumatic stress disorder) Alcoholism Family History Family History Mother Hypertension Lung cancer Sibling Hypertension Sibling Hypertension Father Hypertension Sibling Heart murmur Social History Social History Smoking packs per day: 1 Smoking cigarettes per day: 20.0 Years smoked: 15 Smoking pack-years: 15.00 Smoking status: Former smoker Tobacco type: cigarettes and e-cigarettes/vaping Alcohol intake: current Drinks per week: 30 Substance use: current Substance use type: marijuana Other substance usage details: Pt drinks 1/5 monthly prior to Vivitrol injection. Last use: 02/16/25 Do You Feel Safe in your Home?: Yes Lack of Transportation: YES Lack of Food: Often True Current Housing: I Have Housing Concerned About Future Housing: No Difficulty Paying Gas/Electric Bills: No Difficulty Paying for Meds: No Currently Unemployed: No Education: Trade/Vocational Certificate Difficulty w/ Childcare or Family Care: No Living arrangements: alone Occupation/Education: unemployed Sexual Orientation (if Verbalized by the Patient): Lesbian, Gordon, or Homosexual Spiritual care concerns: No Course Vital Signs Vital signs: Vital Signs Temperature 97.7 F 02/19/25 03:50 Pulse Rate 65 02/19/25 03:50 Respiratory Rate 24 H 02/19/25 03:50 Blood Pressure 108/68 02/19/25 03:50 Pulse Oximetry 100 02/19/25 03:50 Oxygen Delivery Room Air 02/19/25 03:50 Temperature 97.7 F 02/19/25 05:15 Pulse Rate 64 02/19/25 05:15 Respiratory Rate 16 02/19/25 05:15 Blood Pressure 108/68 02/19/25 05:15 Pulse Oximetry 100 02/19/25 05:15 Oxygen Delivery Room Air 02/19/25 03:50 Medical Decision Making [facility] Narrative Medical decision making narrative: 29-year-old female presents emergency department for evaluation for nausea and vomiting. Patient did leave AM and 02/17. Patient's nausea and vomiting was resolved in the emergency department with Haldol and Zofran. Patient was treated with 2 L of lactated Ringer's. Patient was afebrile with no leukocytosis hemoglobin of 10.8. Patient had an INR 1.1 with no acute abnormalities on her CMP UA was negative for infection Differential Diagnosis Differential Diagnosis: Hypokalemia, hyponatremia, intractable nausea and vomiting Vital Signs Vital Signs: Vital Signs Temperature 97.7 F 02/19/25 03:50 Pulse Rate 65 02/19/25 03:50 Respiratory Rate 24 H 02/19/25 03:50 Blood Pressure 108/68 02/19/25 03:50 Pulse Oximetry 100 02/19/25 03:50 Oxygen Delivery Room Air 02/19/25 03:50 Temperature 97.7 F 02/19/25 05:15 Pulse Rate 64 02/19/25 05:15 Respiratory Rate 16 02/19/25 05:15 Blood Pressure 108/68 02/19/25 05:15 Pulse Oximetry 100 02/19/25 05:15 Oxygen Delivery Room Air 02/19/25 03:50 Lab Data Lab results reviewed: Yes I reviewed the patient's lab results. 02/19/25 04:23 02/19/25 04:00 Labs: Lab Results 02/19/25 02/19/25 02/19/25 Range/Units 04:00 04:23 05:09 WBC 4.6 (4.5-10.0) K/mm3 RBC 4.64 (4.2-5.4) M/mm3 Hgb 10.8 L (12.0-15.0) g/dL Hct 33.7 L (37.0-47.0) % MCV 72.6 L (80-100) fl MCH 23.3 L (26-34) pg MCHC 32.0 (32-36) g/dl RDW 15.5 H (11.5-14.5) % Plt Count 258 (150-375) k/mm3 MPV 11.3 H (7.4-10.4) fl Immature Gran % (Auto) 0.2 (0-0.5) % Neut % (Auto) 35.6 L (45.5-73.1) % Lymph % (Auto) 54.7 H (18.3-44.2) % Potter % (Auto) 4.5 (2.6-8.5) % Eos % (Auto) 4.1 (0-4.4) % Baso % (Auto) 0.9 (0.2-1.2) % Lymph # (Auto) 2.54 (0.9-3.2) K/mm3 Potter # (Auto) 0.2 (0.1-0.6) K/mm3 Eos # (Auto) 0.2 (0-0.3) K/mm3 Baso # (Auto) 0.0 (0.0-0.1) K/mm3 Abs Immat Gran (auto) 0.01 (0.00-0.031) K/mm3 Absolute Neuts (auto) 1.7 (1.3-6.7) K/mm3 Absolute Nucleated RBC 0.000 (0.0-0.012) K/mm3 Band Neutrophils % Not Reportable Nucleated RBC % 0.0 (0.0-0.2) % Platelet Estimate Adequate (Adequate) Hypochromasia 1+ Microcytosis 1+ (NORMAL) Target Cells 1+ Schistocytes None seen PT 14.1 (11.1-14.7) Seconds INR 1.1 APTT 24.1 (22.3-36.8) Seconds Sodium 141 (137-145) mmol/L Potassium 3.5 (3.4-5.0) mmol/L Chloride 110 H (98-107) mmol/L Carbon Dioxide 14 L (22-30) mmol/L Anion Gap 17 H (4-12) mmol/L BUN 5 L (7-17) mg/dL Creatinine 0.74 (0.7-1.0) mg/dL Estim Creat Clear Calc Not Reportable Estimated GFR > 60 (59 - ) Glucose 87 (65-110) mg/dL Calcium 9.2 (8.4-10.2) mg/dL Total Bilirubin 0.4 (0.2-1.3) mg/dL AST 28 (14-36) U/L ALT 19 (6-35) U/L Alkaline Phosphatase 59 (38-126) U/L Total Protein 7.9 (6.3-8.2) g/dL Albumin 4.4 (3.5-5.1) g/dL Urine Color Yellow (Yellow) Urine Appearance Clear (Clear) Urine pH 7.0 (5.0-9.0) Ur Specific [place] 1.014 (1.001-1.035) Urine Protein Negative (Negative) mg/dL Urine Glucose (UA) Negative (Negative) mg/dL Urine Ketones Negative (Negative) mg/dL Ur Blood (Man) 2+ H (Negative) Urine Nitrate Negative (Negative) Urine Bilirubin Negative (Negative) Urine Urobilinogen 1.0 (<2.0) mg/dL Leukocyte Esterase Rfl Negative (Negative) CARISSA/UL Urine RBC 0-2 (0-2) /hpf Urine WBC 0-5 (0-3) /hpf Ur Squamous Epith Cells None seen (Few) /hpf Urine Bacteria None seen /hpf Urine Casts 0-2 POC Urine HCG, Qual Negative (Negative) Discharge Plan Discharge Clinical Impression: Nausea & vomiting Patient Disposition: Home Condition: Stable Instructions: Antibiotic Form, Acute Nausea and Vomiting (ED), Alcohol Dependence (ED) Additional Instructions: Clear liquid diet for the next 1-3 days, Zofran and Reglan as needed for nausea control. Have close follow-up with your primary care physician. Avoid alcohol Patient Language: Portuguese Prescriptions: New ondansetron 4 mg tablet,disintegrating 4 mg PO Q8H PRN (Reason: nausea and vomiting) Qty: 14 0RF metoclopramide HCl [Reglan] 10 mg tablet 10 mg PO Q6H PRN (Reason: nausea and vomiting) Qty: 14 0RF No Action folic acid 1 mg tablet 1 mg PO DAILY Qty: 30 0RF thiamine HCl (vitamin B1) [Vitamin B-1] 100 mg tablet 100 mg PO DAILY acamprosate 333 mg tablet,delayed release (DR/EC) 666 mg PO TID hydroxyzine HCl 50 mg tablet 50 mg PO TID PRN (Reason: anxiety) pantoprazole 40 mg tablet,delayed release (DR/EC) 40 mg PO Q12H Vivitrol 380 mg suspension,extended rel recon 380 mg IM MONTHLY Follow-up/Referrals: Johnny,MD Morgan [Primary Care Provider, Unknown]
[2025-02-19 05:11] LABS: BEDSIDEPREGUCG Negative (Negative)
[2025-02-19 05:15] VITALS: BP 108/68; PULSE 64; RESP 16; TEMP 36.5; O2SAT 100
[2025-02-19 05:32] LABS: Hematocrit 33.7 % (37.0-47.0); Hemoglobin 10.8 g/dL (12.0-15.0); Immature Granulocyte Percent A 0.2 % (0-0.5); Lymphocytes Absolute Auto 2.54 K/mm3 (0.9-3.2); Mean Corpuscular HGB Conc 32.0 g/dl (32-36); Mean Corpuscular Hemoglobin 23.3 pg (26-34); Mean Corpuscular Volume 72.6 fl (80-100); Nucleated Red Blood Cells Absolute Auto 0.000 K/mm3 (0.0-0.012); Nucleated Red Blood Cells Perc 0.0 % (0.0-0.2); Platelet Count Result 258 k/mm3 (150-375); Red Blood Count 4.64 M/mm3 (4.2-5.4); White Blood Count 4.6 K/mm3 (4.5-10.0)
[2025-02-19 05:39] LABS: Add Urine Microscopic? YES; Appearance Urine Clear (Clear); Glucose Urine UA Negative (Negative); Leukocyte Esterase Ur Negative LEU/UL (Negative); Nitrate Urine Negative (Negative); Non Pathogenic Casts 0-2; Specific Grav Ur 1.014 (1.001-1.035)
[2025-02-19 05:41] LABS: INR 1.1; Partial Thromboplastin Time 24.1 Seconds (22.3-36.8); Prothrombin Time 14.1 Seconds (11.1-14.7)
[2025-02-19] MEDS: HALOPERIDOL LACTATE 5 MG/ML VIAL IM (05:43)
[2025-02-19 06:05] LABS: Alanine Aminotransferase 19 U/L (6-35); Albumin Level 4.4 g/dL (3.5-5.1); Alkaline Phosphatase 59 U/L (38-126); Anion Gap 17 mmol/L (4-12); Aspartate Amino Transferase 28 U/L (14-36); Bilirubin,Total 0.4 mg/dL (0.2-1.3); Blood Urea Nitrogen 5 mg/dL (7-17); Calcium 9.2 mg/dL (8.4-10.2); Carbon Dioxide 14 mmol/L (22-30); Chloride 110 mmol/L (98-107); Estimated Glomerular Filt Rate > 60; Glucose 87 mg/dL (65-110); Potassium 3.5 mmol/L (3.4-5.0); Sodium 141 mmol/L (137-145); Total Protein 7.9 g/dL (6.3-8.2)
[2025-02-19 06:28] LABS: Hypochromasia 1+
[2025-02-19 06:29] LABS: Microcytosis 1+ (NORMAL); Schistocytes None Seen; Target Cells 1+
--- NOTE | 2025-02-19 06:41 | PC.NURSE ---
Pt refuses to wait for fluids to finish despite education given. EDP notified.
[2025-02-19 06:42] VITALS: BP 109/82; PULSE 77; RESP 18; O2SAT 100
== END 2025-02-19 06:43 | disposition home or self-care (01) ==
PROVIDERS: Emergency Provider Emergency Medicine; PCP Hospitalist
DX: R11.2 Nausea with vomiting, unspecified (principal); F43.10 Post-traumatic stress disorder, unspecified; F10.20 Alcohol dependence, uncomplicated; Z87.891 Personal history of nicotine dependence; Z79.899 Other long term (current) drug therapy; Y90.9 Presence of alcohol in blood, level not specified
CPT/HCPCS: 36415; 80053; 81001; 81025; 85025; 85610; 85730; 96360; 96372; 99283; J1630; J7120

== ENCOUNTER 2025-02-19 08:18 | Emergency (ER) | payer OTHER, SELFPAY ==
--- OUTSIDE RECORDS SUMMARY | 2025-02-18 09:34 | XMS_ITS | Continuity of Care Document ---
Author Name [facility] Organization [facility] Care Team Providers [employer] Member Name Role Phone [facility] Unavailable Unavailable Problems Combined list of problems from Department of Defense and Veterans Affairs facilities. It does not include entries that were removed or entered in error. Problem Status Onset Date Problem Type Date of Resolution Comments Source Alcohol dependence, uncomplicated Active 8 Condition DoD Sprain of other ligament of right ankle Active 8 Condition [facility] Abnormal urine Active Condition [facility] Alcohol dependence Active Condition [facility] Chronic post-traumatic stress disorder Active Condition [facility] Housing instability Active Condition [facility] Mild bipolar disorder Active Condition [facility] Nicotine dependence Active Condition [facility] Posttraumatic stress disorder Active Condition [facility] Unsheltered homelessness Active Condition [facility] Diagnosis: ICD-10-CM F43.10 Post-traumatic stress disorder, unspecified Active Diagnosis [facility] Diagnosis: ICD-10-CM F10.220 Alcohol dependence with intoxication, uncomplicated Active Diagnosis [facility] Diagnosis: ICD-10-CM F10.20 Alcohol dependence, uncomplicated Active Diagnosis [facility] Diagnosis: ICD-10-CM Z59.89 Other problems related to housing and economic circumstances Active Diagnosis [facility] Diagnosis: ICD-10-CM Z78.9 Other specified health status Active Diagnosis [facility] Diagnosis: ICD-10-CM F43.12 Post-traumatic stress disorder, chronic Active Diagnosis [facility] Diagnosis: ICD-10-CM F10.239 Alcohol dependence with withdrawal, unspecified Active Diagnosis [facility] Diagnosis: ICD-10-CM F31.81 Bipolar II disorder Active Diagnosis [facility] Admit Reason: ALCOHOL DETOXIFICATION Active Diagnosis [facility] Diagnosis: ICD-10-CM Z71.89 Other specified counseling Active Diagnosis [facility] Diagnosis: ICD-10-CM Z59.9 Problem related to housing and economic circumstances, unsp Active Diagnosis [facility] Diagnosis: ICD-10-CM Z59.02 Unsheltered homelessness Active Diagnosis [facility] Diagnosis: ICD-10-CM F31.89 Other bipolar disorder Active Diagnosis [facility] Medications Combined list of outpatient medications [...] FOR ASSISTAN CE WITH DEPENDEN CY 01/23/2024 [id number] THA CHASE S 2023 5 [facility] CHLORDIAZEP OXIDE HCL 25MG CAP TAKE ONE CAPSULE BY MOUTH TWICE A DAY FOR 2 DAYS, THEN TAKE ONE CAPSULE ONCE A DAY FOR 1 DAY FOR ASSISTAN CE WITH DEPENDEN CY ORAL 01/23/2024 [id number] 4 BRIGIDO CHASE 2023 5 [facility] HYDROXYZINE HCL 50MG TAB TAKE ONE TABLET BY MOUTH THREE TIMES A DAY NEEDED FOR ANXIETY *MAY CAUSE DROWSINE SS* ORAL ACTIVE 06/30/2025 [id number] 5 Dick RAO 2024 270 [facility] HYDROXYZINE HCL 50MG TAB TAKE ONE TABLET BY MOUTH THREE TIMES A DAY NEEDED FOR ANXIETY *MAY CAUSE DROWSINE SS* ORAL DISCONT INUED 02/03/2025 [id number] Dick RAO 2023 270 [facility] NALTREXONE (EQV-REVIA) 50MG TAB TAKE ONE TABLET BY MOUTH ONCE A DAY FOR ASSISTAN CE WITH DEPENDEN CY ORAL 01/23/2024 [id number] BRIGIDO CHASEA S 2023 30 [facility] Naltrexone Hydrochlori de (ReVia Eq.) Tablet 50 mg Oral TAKE ONE TABLET BY MOUTH ONCE A DAY FOR ASSISTAN CE WITH DEPENDEN CY 01/23/2024 [id number] THA CHASE S 2023 30 [facility] Quetiapine (Seroquel Starter Pack) Tablet 25mg Oral TAKE ONE TABLET BY MOUTH AT BEDTIME 12/14/2024 [id number] NITISH RAO E 2023 30 [facility] QUETIAPINE FUMARATE 25MG TAB TAKE ONE TABLET BY MOUTH AT BEDTIME ORAL DISCONT INUED BY PROVIDE R 12/14/2024 [id number] Dick RAO E 2023 30 [facility] QUETIAPINE FUMARATE 50MG TAB TAKE ONE TABLET BY MOUTH AT BEDTIME FOR MOOD REGULATI ON ORAL ACTIVE 06/30/2025 [id number] 5 Dick RAO E 2024 90 [facility] QUETIAPINE FUMARATE 50MG TAB TAKE ONE TABLET BY MOUTH AT BEDTIME FOR MOOD REGULATI ON ORAL DISCONT INUED 02/03/2025 [id number] 4 Dick RAO E 2023 90 [facility] 100MG TAB TAKE ONE TABLET BY MOUTH ONCE A DAY FOR 10 DAYS FOR VITAMIN B1 SUPPLEME NTATION ORAL 01/23/2024 [id number] BRIGIDO CHASEA S 2023 10 [facility] Thiamine 100mg, Tablet, Oral TAKE ONE TABLET BY MOUTH ONCE A DAY FOR 10 DAYS FOR VITAMIN B1 SUPPLEME NTATION 01/23/2024 [id number] 4 THA CHASE Pieter 2023 10 [facility] Allergies, Adverse Reactions, Alerts Combined list of allergies from Department of Defense and Veterans Affairs facilities. It does not include entries that were removed or entered in error. Substance Category Reaction Severity Reaction type Status Date Reported Comments Source No Known Allergies Drug allergy (disorder) active 8 [facility] Immunizations Combined list of available immunizations from the Department of Defense and Veterans Affairs facilities. Immunization Series Date Given Administered By Site Reaction Lot Number CVX Code Drug Tile Professional Status Comments Source INFLUENZA, SPLIT VIRUS, TRIVALENT, PF 1 2023 140 complet ed HISTORICA L INFORMATI ON - FROM OTHER [facility], [facility] COVID-19 (MODERNA), MRNA, LNP-S, PF, 100 MCG/0.5ML DOSE OR 50 MCG/0.25ML DOSE 1 2020 207 complet ed HISTORICA L INFORMATI ON - FROM OTHER [facility], [facility] N INFLUENZA, SPLIT VIRUS, QUADRIVALENT, PF 1 2020 150 complet ed HISTORICA L INFORMATI ON - FROM OTHER [facility], [facility] N Influenza, injectable, quadrivalent, preservative free 1 2018 [id number] 150 Seqirus (SEQ) complet ed Influenza , injectabl e, quadrival ent, preservat el free [facility] Influenza, injectable, quadrivalent, preservative free 1 2018 [id number] 150 Seqirus (SEQ) comple t ed Influenza , injectabl e, quadrival ent, preservat el free DoD INFLUENZA, SPLIT VIRUS, QUADRIVALENT, PRESERVATIVE 1 2018 158 complet ed HISTORICA L INFORMATI ON - FROM OTHER [facility], [facility] N hepatitis B vaccine, adult dosage 3 2018 [id number] SmithKline (SKB) complet ed hepatitis B vaccine, adult dosage DoD influenza, injectable, quadrivalent, contains preservative 1 2018 [id number] 158 Seqirus (SEQ) complet ed influenza , injectabl e, quadrival ent, contains preservat el DoD varicella virus vaccine 2 2017 [id number] Merck (MSD) complet ed varicella virus vaccine DoD hepatitis B vaccine, adult dosage 2 2017 [id number] 365looksine (SKB) complet ed hepatitis B vaccine, adult dosage DoD measles, mumps and rubella virus vaccine 1 2017 UNK 03 Unknown (UNK) Not Given measles, mumps and rubella virus vaccine DoD poliovirus vaccine, inactivated 1 2017 [id number] Sanofi Pasteur ([facility]) complet ed polioviru s vaccine, inactivat ed DoD varicella virus vaccine 1 2017 [id number] 21 Merck (MSD) complet ed varicella virus vaccine DoD hepatitis B vaccine, adult dosage 1 2017 [id number] 365looksine (SK) complet ed hepatitis B vaccine, adult dosage DoD hepatitis A vaccine, adult dosage 1 2017 UNK 52 Unknown (UNK) Not Given hepatitis A vaccine, adult dosage DoD meningococcal polysaccharid e (groups A, C, Y and W-135) diphtheria toxoid conjugate vaccine (MCV4P) 1 2017 [id number] Sanofi Pasteur ([facility]) complet ed meningoco ccal polysacch aride (groups A, C, Y and W-135) diphtheri a toxoid conjugate vaccine (MCV4P) DoD tetanus toxoid, reduced diphtheria toxoid, and acellular pertu is vaccine, adsorbed 1 2017 [id number] [facility] complet ed tetanus toxoid, reduced diphtheri a toxoid, and acellular pertussis vaccine, adsorbed DoD Adenovirus, type 4 and type 7, live, oral 1 2017 [id number] [facility] ([facility]) complet ed Adenoviru s, type 4 and type 7, live, oral DoD Influenza, injectable, Madin [place] Canine Kidney, quadrivalent with preservative 1 2017 [id number] Seqirus (SEQ) comple t ed Influenza , injectabl e, Madin Ana Canine Kidney, quadrival ent with preservat el DoD HEP A, PED/ADOL, 2 DOSE 1 2009 83 complet ed HISTORICA L INFORMATI ON - FROM OTHER REGISTRY, [facility] HPV, QUADRIVALENT 2 2009 62 complet ed HISTORICA L INFORMATI ON - [facility] INFLU[facility]ZA, LIVE, TRIVALENT, INTRANASAL 1 2009 111 complet ed HISTORICA L INFORMATI ON - FROM OTHER REGISTRY, [facility] N VARICELLA 2 2009 21 complet ed HISTORICA L INFORMATI ON - [facility] OTHER [facility] HPV, QUADRIVALENT 1 2009 62 complet ed HISTORICA L INFORMATI ON - FROM OTHER REGISTRY, [facility] N MENINGOCOCCAL MPSV4 1 2009 32 complet ed HISTORICA L INFORMATI ON - FROM OTHER [facility]ISTRY, [facility] TDAP 5 2009 115 complet ed HISTORICA L INFORMATI ON - FROM OTHER REGISTRY, [facility] MMR 2 2000 03 complet ed HISTORICA L INFORMATI ON - FROM OTHER [facility]ISTRY, [facility] VARICELLA 1 2000 21 complet ed HISTORICA L INFORMATI ON - [facility] OTHER REGISTRY, [facility] DTAP 4 1999 20 complet ed HISTORICA L INFORMATI ON - FROM OTHER REGISTRY, [facility] N HIB, UNSPECIFIED FORMULATION 4 1999 17 complet ed HISTORICA L INFORMATI ON - FROM OTHER REGISTRY, [facility] IPV 4 1999 10 complet ed HISTORICA L INFORMATI ON - FROM OTHER REGISTRY, [facility] MMR 1 1999 03 complet ed HISTORICA L INFORMATI ON - FROM OTHER REGISTRY, [facility] DTP 3 1995 01 complet ed HISTORICA L INFORMATI ON - FROM OTHER REGISTRY, [facility] HEP B, ADOLESCENT OR PEDIATRIC 3 1995 08 complet ed HISTORICA L INFORMATI ON - FROM OTHER REGISTRY, [facility] HIB, UNSPECIFIED FORMULATION 3 1995 17 complet ed HISTORICA L INFORMATI ON - FROM OTHER REGISTRY, [facility] OPV, TRIVALENT 3 1995 02 complet ed HISTORICA L INFORMATI ON - FROM OTHER REGISTRY, [facility] DTP 2 1995 01 complet ed HISTORICA L INFORMATI ON - FROM OTHER REGISTRY, [facility] HIB, UNSPECIFIED FORMULATION 2 1995 17 complet ed HISTORICA L INFORMATI ON - FROM OTHER REGISTRY, [facility] OPV, TRIVALENT 2 1995 02 complet ed HISTORICA L INFORMATI ON - FROM OTHER REGISTRY, [facility] DTP 1 1995 01 complet ed HISTORICA L INFORMATI ON - FROM OTHER REGISTRY, [facility] HEP B, ADOLESCENT OR PEDIATRIC 2 1995 08 complet ed HISTORICA L INFORMATI ON - FROM OTHER REGISTRY, [facility] HIB, UNSPECIFIED FORMULATION 1 1995 17 complet ed HISTORICA L INFORMATI ON - FROM OTHER REGISTRY, [facility] OPV, TRIVALENT 1 1995 02 complet ed HISTORICA L INFORMATI ON - FROM OTHER REGISTRY, [facility] HEP B, ADOLESCENT OR PEDIATRIC 1 1994 08 complet ed HISTORICA L INFORMATI ON - FROM OTHER REGISTRY, [facility] Results Combined list of recent [...] Dec 23, 2023 04:13 PM Reporting Lab: [address] [address] Performing Lab: [address] [address] [facility] CBC ERYTHROCYT ES [#/VOLUME] IN BLOOD BY AUTOMATED COUNT 4.72 10*6/uL 3.60 - 5.00 12/22 Specimen Type: BLOOD No comment entered. Ordering Provider: MICKI COTTER Report Released Date/Time: Dec 23, 2023 04:13 PM Reporting Lab: [address] [address] Performing Lab: [address] [address] [facility] CBC HEMOGLOBIN [MASS/VOLU ME] IN BLOOD 11.8 g/dL 11.0 - 14.9 12/22 Specimen Type: BLOOD No comment entered. Ordering Provider: MICKI COTTER Report Released Date/Time: Dec 23, 2023 04:13 PM Reporting Lab: [address] [address] Performing Lab: [address] [address] [facility] CBC HEMATOCRIT [VOLUME FRACTION] OF BLOOD 36.7 32.6 - 43.4 12/22 Specimen Type: BLOOD No comment entered. Ordering Provider: MICKI COTTER Report Released Date/Time: Dec 23, 2023 04:13 PM Reporting Lab: [address] [address] Performing Lab: [address] [address] [facility] CBC MCV [ENTITIC VOLUME] BY AUTOMATED COUNT 77.8 fL 80.0 - 100.0 12/22 L Specimen Type: BLOOD No comment entered. Ordering Provider: MICKI COTTER AR Report Released Date/Time: Dec 23, 2023 04:13 PM Reporting Lab: [facility] [place] [address] [address] Performing Lab: [address] [address] [facility] CBC MCH [ENTITIC MASS] BY AUTOMATED COUNT 25.0 pg 27.0 - 34.0 12/22 L Specimen Type: BLOOD No comment entered. Ordering Provider: MICKI COTTER Report Released Date/Time: Dec 23, 2023 04:13 PM Reporting Lab: [address] [address] Performing Lab: [address] [address] [facility] CBC MCHC [MASS/VOLU ME] BY AUTOMATED COUNT 32.2 g/dL 33.0 - 36.0 12/22 L Specimen Type: BLOOD No comment entered. Ordering Provider: MICKI COTTER Report Released Date/Time: Dec 23, 2023 04:13 PM Reporting Lab: [address] [address] Performing Lab: [address] [address] [facility] CBC PLATELETS [#/VOLUME] IN BLOOD BY AUTOMATED COUNT 309 10*3/uL 150 - 400 12/22 Specimen Type: BLOOD No comment entered. Ordering Provider: MICKI COTTER Report Released Date/Time: Dec 23, 2023 04:13 PM Reporting Lab: [address] [address] Performing Lab: [address] [address] [facility] CBC PLATELET MEAN VOLUME [ENTITIC VOLUME] IN BLOOD BY AUTOMATED COUNT 10.3 fL 7.5 - 11.2 12/22 Specimen Type: BLOOD No comment entered. Ordering Provider: MICKI COTTER Report Released Date/Time: Dec 23, 2023 04:13 PM Reporting Lab: [address] [place] [address] Performing Lab: [facility] [address] [facility] [address] [facility] CBC ERYTHROCYT E DISTRIBUTI ON WIDTH [RATIO] BY AUTOMATED COUNT 17.3 11.8 - 15.1 12/22 H Specimen Type: BLOOD No comment entered. Ordering Provider: MICKI COTTER Report Released Date/Time: Dec 23, 2023 04:13 PM Reporting Lab: [facility] [address] [facility] [address] Performing Lab: [facility] [address] [facility] [address] [facility] CBC LYMPHOCYTE S/100 LEUKOCYTES IN BLOOD BY AUTOMATED COUNT 58 12/22 Specimen Type: BLOOD No comment entered. Ordering Provider: MICKI COTTER AR Report Released Date/Time: Dec 23, 2023 04:13 PM Reporting Lab: [facility] [address] [facility] [address] Performing Lab: [facility] [address] [facility] [address] [facility] CBC MONOCYTES/ 100 LEUKOCYTES IN BLOOD BY AUTOMATED COUNT 6 12/22 Specimen Type: BLOOD No comment entered. Ordering Provider: MICKI COTTER AR Report Released Date/Time: Dec 23, 2023 04:13 PM Reporting Lab: [facility] [address] [facility] [address] Performing Lab: [facility] [address] [facility] [address] [facility] CBC NEUTROPHIL S/100 LEUKOCYTES IN BLOOD BY AUTOMATED COUNT 32 12/22 Specimen Type: BLOOD No comment entered. Ordering Provider: MICKI COTTER AR Report Released Date/Time: Dec 23, 2023 04:13 PM Reporting Lab: [facility] [address] [facility] [address] Performing Lab: [facility] [address] [facility] [address] [facility] CBC EOSINOPHIL S/100 LEUKOCYTES IN BLOOD BY AUTOMATED COUNT 2 12/22 Specimen Type: BLOOD No comment entered. Ordering Provider: MICKI COTTER Report Released Date/Time: Dec 23, 2023 04:13 PM Reporting Lab: [facility] [address] [place] [address] Performing Lab: [facility] [address] [place] [address] [facility] CBC BASOPHILS/ 100 LEUKOCYTES IN BLOOD BY AUTOMATED COUNT 1 12/22 Specimen Type: BLOOD No comment entered. Ordering Provider: MICKI COTTER Report Released Date/Time: Dec 23, 2023 04:13 PM Reporting Lab: [address] [address] Performing Lab: [address] [address] [facility] CBC LYMPHOCYTE S [#/VOLUME] IN BLOOD BY AUTOMATED COUNT 3.67 10*3/uL 0.77 - 4.50 12/22 Specimen Type: BLOOD No comment entered. Ordering Provider: MICKI COTTER Report Released Date/Time: Dec 23, 2023 04:13 PM Reporting Lab: [address] [address] Performing Lab: [address] [address] [facility] CBC MONOCYTES [#/VOLUME] IN BLOOD BY AUTOMATED COUNT 0.39 10*3/uL 0.19 - 0.80 12/22 Specimen Type: BLOOD No comment entered. Ordering Provider: MICKI COTTER AR Report Released Date/Time: Dec 23, 2023 04:13 PM Reporting Lab: [address] [address] Performing Lab: [address] [address] [facility] CBC NEUTROPHIL S [#/VOLUME] IN BLOOD BY AUTOMATED COUNT 2.03 10*3/uL 2.10 - 8.00 12/22 L Specimen Type: BLOOD No comment entered. Ordering Provider: MICKI COTTER AR Report Released Date/Time: Dec 23, 2023 04:13 PM Reporting Lab: [address] [address] Performing Lab: [address] [phone] CBC EOSINOPHIL S [#/VOLUME] IN BLOOD BY AUTOMATED COUNT 0.13 10*3/uL 0.00 - 0.60 12/22 Specimen Type: BLOOD No comment entered. Ordering Provider: MICKI COTTER Report Released Date/Time: Dec 23, 2023 04:13 PM Reporting Lab: [address] [address] Performing Lab: [address] [phone] [place] [address] CBC BASOPHILS [#/VOLUME] IN BLOOD BY AUTOMATED COUNT 0.08 10*3/uL 0.00 - 0.20 12/22 Specimen Type: BLOOD No comment entered. Ordering Provider: MICKI COTTER AR Report Released Date/Time: Dec 23, 2023 04:13 PM Reporting Lab: [address] [address] Performing Lab: [address] [address] [place] [address] COMPREHE NSIVE METABOLI C PANEL CREATININE [MASS/VOLU ME] IN SERUM OR PLASMA 0.84 mg/dL 0.6 - 1.1 12/22 Specimen Type: PLASMA Comment: No hemolysis noted. Ordering Provider: MICKI COTTER AR Report Released Date/Time: Dec 23, 2023 04:13 PM Reporting Lab: [address] [address] Performing Lab: [address] [place] [address] [facility] COMPREHE NSIVE METABOLI C PANEL UREA NITROGEN [MASS/VOLU ME] IN SERUM OR PLASMA 5.6 mg/dL 9.0 - 25.0 12/22 L Specimen Type: PLASMA Comment: No hemolysis noted. Ordering Provider: MICKI COTTER Report Released Date/Time: Dec 23, 2023 04:13 PM Reporting Lab: [facility] [address] [facility] [address] Performing Lab: [facility] [address] [facility] [address] [facility] COMPREHE NSIVE METABOLI C PANEL GLUCOSE [MASS/VOLU ME] IN SERUM OR PLASMA 109 mg/dL 72 - 99 12/22 H Specimen Type: PLASMA Comment: No hemolysis noted. Ordering Provider: MICKI COTTER Report Released Date/Time: Dec 23, 2023 04:13 PM Reporting Lab: [facility] [address] [facility] [address] Performing Lab: [place] [address] [facility] [address] [facility] COMPREHE NSIVE METABOLI C PANEL SODIUM [MOLES/VOL UME] IN SERUM OR PLASMA 139 meq/L 136 - 145 12/22 Specimen Type: PLASMA Comment: No hemolysis noted. Ordering Provider: MICKI COTTER AR Report Released Date/Time: Dec 23, 2023 04:13 PM Reporting Lab: [facility] [address] [facility] [address] Performing Lab: [address] [address] [facility] COMPREHE NSIVE METABOLI C PANEL POTASSIUM [MOLES/VOL UME] IN SERUM OR PLASMA 3.7 meq/L 3.5 - 5 12/22 Specimen Type: PLASMA Comment: No hemolysis noted. Ordering Provider: MICKI COTTER Report Released Date/Time: Dec 23, 2023 04:13 PM Reporting Lab: [facility] [address] [facility] [address] Performing Lab: [facility] [address] [facility] [address] [facility] COMPREHE NSIVE METABOLI C PANEL CHLORIDE [MOLES/VOL UME] IN SERUM OR PLASMA 108 meq/L 98 - 107 12/22 H Specimen Type: PLASMA Comment: No hemolysis noted. Ordering Provider: MICKI COTTER AR Report Released Date/Time: Dec 23, 2023 04:13 PM Reporting Lab: [place] [address] [facility] [address] Performing Lab: [place] [address] [facility] [address] [facility] COMPREHE NSIVE METABOLI C PANEL CARBON DIOXIDE, TOTAL [MOLES/VOL UME] IN SERUM OR PLASMA 17 meq/L 22 - 31 12/22 L Specimen Type: PLASMA Comment: No hemolysis noted. Ordering Provider: MICKI COTTER AR Report Released Date/Time: Dec 23, 2023 04:13 PM Reporting Lab: [place] [address] [facility] [address] Performing Lab: [place] [address] [facility] [address] [facility] COMPREHE NSIVE METABOLI C PANEL CALCIUM [MASS/VOLU ME] IN SERUM OR PLASMA 9.1 mg/dL 8.4 - 10.4 12/22 Specimen Type: PLASMA Comment: No hemolysis noted. Ordering Provider: MICKI COTTER AR Report Released Date/Time: Dec 23, 2023 04:13 PM Reporting Lab: [place] [address] [facility] [address] Performing Lab: [place] [address] [facility] [address] [facility] COMPREHE NSIVE METABOLI C PANEL PROTEIN [MASS/VOLU ME] IN SERUM OR PLASMA 8.2 g/dL 6 - 8.6 12/22 Specimen Type: PLASMA Comment: No hemolysis noted. Ordering Provider: MICKI COTTER Report Released Date/Time: Dec 23, 2023 04:13 PM Reporting Lab: [facility] [address] [facility] [address] Performing Lab: [facility] [address] [place] [address] [facility] COMPREHE NSIVE METABOLI C PANEL ALBUMIN [MASS/VOLU ME] IN SERUM OR PLASMA 4.4 g/dL 3.4 - 5 12/22 Specimen Type: PLASMA Comment: No hemolysis noted. Ordering Provider: MICKI COTTER Report Released Date/Time: Dec 23, 2023 04:13 PM Reporting Lab: [facility] [address] [place] [address] Performing Lab: [address] [phone] [place] [address] COMPREHE NSIVE METABOLI C PANEL BILIRUBIN. TOTAL [MASS/VOLU ME] IN SERUM OR PLASMA 0.3 mg/dL 0.2 - 1.2 12/22 Specimen Type: PLASMA Comment: No hemolysis noted. Ordering Provider: MICKI COTTER Report Released Date/Time: Dec 23, 2023 04:13 PM Reporting Lab: [facility] [address] [place] [id number] Performing Lab: [address] [id number] [facility] COMPREHE NSIVE METABOLI C PANEL ALKALINE PHOSPHATAS E [ENZYMATIC ACTIVITY/V OLUME] IN SERUM OR PLASMA 82 U/L 40 - 150 12/22 Specimen Type: PLASMA Comment: No hemolysis noted. Ordering Provider: MICKI COTTER AR Report Released Date/Time: Dec 23, 2023 04:13 PM Reporting Lab: [facility] [address] [place] [phone] Performing Lab: [facility] [address] [place] [phone] [facility] COMPREHE NSIVE METABOLI C PANEL ASPARTATE AMINOTRANS FERASE [ENZYMATIC ACTIVITY/V OLUME] IN SERUM OR PLASMA 25 U/L 5 - 34 12/22 Specimen Type: PLASMA Comment: No hemolysis noted. Ordering Provider: MICKI COTTER Report Released Date/Time: Dec 23, 2023 04:13 PM Reporting Lab: [place] [address] [facility] [address] Performing Lab: [place] [address] [facility] [phone] [place] [address] COMPREHE NSIVE METABOLI C PANEL ALANINE AMINOTRANS FERASE [ENZYMATIC ACTIVITY/V OLUME] IN SERUM OR PLASMA 17 U/L 8 - 40 12/22 Specimen Type: PLASMA Comment: No hemolysis noted. Ordering Provider: MICKI COTTER Report Released Date/Time: Dec 23, 2023 04:13 PM Reporting Lab: [place] [address] [facility] [address] Performing Lab: [place] [address] [facility] [phone] [place] [address] COMPREHE NSIVE METABOLI C PANEL GLOMERULAR FILTRATION RATE/1.73 SQ M.PREDICTE D [VOLUME RATE/AREA] IN SERUM, PLASMA OR BLOOD BY CREATININE -BASED FORMULA (CKD-EPI 2020) 97.0 60 12/22 Specimen Type: PLASMA Comment: No hemolysis noted. Ordering Provider: MICKI COTTER Report Released Date/Time: Dec 23, 2023 04:13 PM Reporting Lab: [place] [address] [facility] [address] Performing Lab: [place] [address] [facility] [phone] [place] [address] COVID-19 SCREENIN G PANEL (STL-PB) SARS-COV-2 (COVID-19) [...] Dec 23, 2023 04:13 PM Reporting Lab: [address] [address] Performing Lab: [address] [address] [facility] ETHANOL SERUM/PL ASMA (STL) ETHANOL [MASS/VOLU ME] IN SERUM OR PLASMA 300 mg/dL 0 - 10 12/22 H Specimen Type: PLASMA Comment: No hemolysis noted. Ordering Provider: MICKI COTTER Report Released Date/Time: Dec 23, 2023 04:13 PM Reporting Lab: [address] [address] Performing Lab: [address] [address] [facility] METHADON E PANEL (STL) ETHANOL [MASS/VOLU ME] IN URINE 296-POSm g/dL 0 - 20 12/22 H Specimen Type: URINE Comment: The cut-off value for this test was laboratory developed and its performance characteris tics confirmed by the [facility] laboratory thru method comparison with reference laboratory and medication chart review. The laboratory is regulated under CLIA as qualified to perform high-comple xity testing. This test is used for clinical purposes in conjunction with other laboratory tests. Ordering Provider: MICKI COTTER Report Released Date/Time: Dec 23, 2023 04:13 PM Reporting Lab: [address] [address] Performing Lab: [address] [address] [facility] METHADON E PANEL (STL) AMPHETAMIN E [PRESENCE] IN URINE BY SCREEN METHOD Negative ng/mL 12/22 Specimen Type: URINE Comment: The cut-off value for this test was laboratory developed and its performance characteris tics confirmed by the [facility] laboratory thru method comparison with reference laboratory and medication chart review. The laboratory is regulated under CLIA as qualified to perform high-comple xity testing. This test is used for clinical purposes in conjunction with other laboratory tests. Ordering Provider: MICKI COTTER AR Report Released Date/Time: Dec 23, 2023 04:13 PM Reporting Lab: [place] [address] [facility] [address] Performing Lab: [address] [address] [facility] METHADON E PANEL (STL) BENZOYLECG ONINE [PRESENCE] IN URINE Negative ng/mL 12/22 Specimen Type: URINE Comment: The cut-off value for this test was laboratory developed and its performance characteris tics confirmed by the [facility] laboratory thru method comparison with reference laboratory and medication chart review. The laboratory is regulated under CLIA as qualified to perform high-comple xity testing. This test is used for clinical purposes in conjunction with other laboratory tests. Ordering Provider: MICKI COTTER AR Report Released Date/Time: Dec 23, 2023 04:13 PM Reporting Lab: [place] [address] [facility] [address] Performing Lab: [address] [address] [facility] METHADON E PANEL (STL) BENZODIAZE PINES [PRESENCE] IN URINE BY SCREEN METHOD Negative ng/mL 12/22 Specimen Type: URINE Comment: The cut-off value for this test was laboratory developed and its performance characteris tics confirmed by the [facility] laboratory thru method comparison with reference laboratory and medication chart review. The laboratory is regulated under CLIA as qualified to perform high-comple xity testing. This test is used for clinical purposes in conjunction with other laboratory tests. Ordering Provider: MICKI COTTER AR Report Released Date/Time: Dec 23, 2023 04:13 PM Reporting Lab: [place] [address] [facility] [address] Performing Lab: [facility] [address] [place] [phone] [facility] METHADON E PANEL (STL) CANNABINOI DS [PRESENCE] IN URINE BY SCREEN METHOD 99-POSng /mL 12/22 Specimen Type: URINE Comment: The cut-off value for this test was laboratory developed and its performance characteris tics confirmed by the [facility] laboratory thru method comparison with reference laboratory and medication chart review. The laboratory is regulated under CLIA as qualified to perform high-comple xity testing. This test is used for clinical purposes in conjunction with other laboratory tests. Ordering Provider: MICKI COTTER AR Report Released Date/Time: Dec 23, 2023 04:13 PM Reporting Lab: [address] [address] Performing Lab: [place] [address] [facility] [address] [facility] METHADON E PANEL (STL) METHADONE [PRESENCE] IN URINE Negative ng/mL 12/22 Specimen Type: URINE Comment: The cut-off value for this test was laboratory developed and its performance characteris tics confirmed by the [facility] laboratory thru method comparison with reference laboratory and medication chart review. The laboratory is regulated under CLIA as qualified to perform high-comple xity testing. This test is used for clinical purposes in conjunction with other laboratory tests. Ordering Provider: MICKI COTTER AR Report Released Date/Time: Dec 23, 2023 04:13 PM Reporting Lab: [place] [address] [facility] [address] Performing Lab: [address] [address] [facility] METHADON E PANEL (STL) OPIATES [PRESENCE] IN URINE BY SCREEN METHOD Negative ng/mL 12/22 Specimen Type: URINE Comment: The cut-off value for this test was laboratory developed and its performance characteris tics confirmed by the [facility] laboratory thru method comparison with reference laboratory and medication chart review. The laboratory is regulated under CLIA as qualified to perform high-comple xity testing. This test is used for clinical purposes in conjunction with other laboratory tests. Ordering Provider: MICKI COTTER Report Released Date/Time: Dec 23, 2023 04:13 PM Reporting Lab: [address] [address] Performing Lab: [address] [address] [facility] METHADON E PANEL (STL) CREATININE [MASS/VOLU ME] IN URINE 63.4 mg/dL 47 - 110 12/22 Specimen Type: URINE Comment: The cut-off value for this test was laboratory developed and its performance characteris tics confirmed by the [facility] laboratory thru method comparison with reference laboratory and medication chart review. The laboratory is regulated under CLIA as qualified to perform high-comple xity testing. This test is used for clinical purposes in conjunction with other laboratory tests. Ordering Provider: MICKI COTTER Report Released Date/Time: Dec 23, 2023 04:13 PM Reporting Lab: [address] [address] Performing Lab: [address] [address] [facility] METHADON E PANEL (STL) OXYCODONE CUTOFF [MASS/VOLU ME] IN URINE FOR SCREEN METHOD Negative ng/mL 12/22 Specimen Type: URINE Comment: The cut-off value for this test was laboratory developed and its performance characteris tics confirmed by the [facility] laboratory thru method comparison with reference laboratory and medication chart review. The laboratory is regulated under CLIA as qualified to perform high-comple xity testing. This test is used for clinical purposes in conjunction with other laboratory tests. Ordering Provider: MICKI COTTER Report Released Date/Time: Dec 23, 2023 04:13 PM Reporting Lab: [address] [place] [address] Performing Lab: [address] [address] [facility] METHADON E PANEL (STL) BUPRENORPH INE [PRESENCE] IN URINE Negative 12/22 Specimen Type: URINE Comment: The cut-off value for this test was laboratory developed and its performance characteris tics confirmed by the [facility] laboratory thru method comparison with reference laboratory and medication chart review. The laboratory is regulated under CLIA as qualified to perform high-comple xity testing. This test is used for clinical purposes in conjunction with other laboratory tests. Ordering Provider: MICKI COTTER Report Released Date/Time: Dec 23, 2023 04:13 PM Reporting Lab: [address] [address] Performing Lab: [address] [address] [facility] METHADON E PANEL (STL) FENTANYL [PRESENCE] IN URINE Negative ng/mL 12/22 Specimen Type: URINE Comment: The cut-off value for this test was laboratory developed and its performance characteris tics confirmed by the [facility] laboratory thru method comparison with reference laboratory and medication chart review. The laboratory is regulated under CLIA as qualified to perform high-comple xity testing. This test is used for clinical purposes in conjunction with other laboratory tests. Ordering Provider: MICKI COTTER Report Released Date/Time: Dec 23, 2023 04:13 PM Reporting Lab: [address] [address] Performing Lab: [address] [address] [facility] PREGNANC Y TEST URINE (MA-STL) CHORIOGONA DOTROPIN ( TEST) [PRESENCE] IN URINE NEG 12/22 Specimen Type: URINE No comment entered. Ordering Provider: MICKI COTTER Report Released Date/Time: Dec 23, 2023 04:13 PM Reporting Lab: [address] [place] [address] Performing Lab: [place] [address] [facility] [address] [facility] URINALYS IS (STL-PB) COLOR OF URINE Colorles s 12/22 Specimen Type: URINE No comment entered. Ordering Provider: MICKI COTTER Report Released Date/Time: Dec 23, 2023 04:13 PM Reporting Lab: [place] [address] [facility] [address] Performing Lab: [place] [address] [facility] [address] [facility] URINALYS IS (STL-PB) BILIRUBIN. TOTAL [PRESENCE] IN URINE BY TEST STRIP Negative mg/dL 12/22 Specimen Type: URINE No comment entered. Ordering Provider: MICKI COTTER Report Released Date/Time: Dec 23, 2023 04:13 PM Reporting Lab: [place] [address] [facility] [address] Performing Lab: [address] [address] [facility] URINALYS IS (STL-PB) PH OF URINE BY TEST STRIP 6.5 5.0 - 8.0 12/22 Specimen Type: URINE No comment entered. Ordering Provider: MICKI COTTER Report Released Date/Time: Dec 23, 2023 04:13 PM Reporting Lab: [place] [address] [facility] [address] Performing Lab: [address] [address] [facility] URINALYS IS (STL-PB) APPEARANCE OF URINE Clear 12/22 Specimen Type: URINE No comment entered. Ordering Provider: MICKI COTTER AR Report Released Date/Time: Dec 23, 2023 04:13 PM Reporting Lab: [place] [address] [facility] [address] Performing Lab: [facility] [address] [facility] [address] [facility] URINALYS IS (STL-PB) NITRITE [PRESENCE] IN URINE BY TEST STRIP Negative mg/dL 12/22 Specimen Type: URINE No comment entered. Ordering Provider: MICKI COTTER Report Released Date/Time: Dec 23, 2023 04:13 PM Reporting Lab: [place] [address] [facility] [address] Performing Lab: [place] [address] [facility] [address] [facility] URINALYS IS (STL-PB) GLUCOSE [MASS/VOLU ME] IN URINE BY TEST STRIP Normalmg /dL 12/22 Specimen Type: URINE No comment entered. Ordering Provider: MICKI COTTER Report Released Date/Time: Dec 23, 2023 04:13 PM Reporting Lab: [place] [address] [facility] [address] Performing Lab: [place] [address] [facility] [address] [facility] URINALYS IS (STL-PB) PROTEIN [MASS/VOLU ME] IN URINE BY TEST STRIP Negative mg/dL - 20 12/22 Specimen Type: URINE No comment entered. Ordering Provider: MICKI COTTER Report Released Date/Time: Dec 23, 2023 04:13 PM Reporting Lab: [place] [address] [facility] [address] Performing Lab: [address] [address] [facility] URINALYS IS (STL-PB) URN.UROBIL INOGEN Normalmg /dL 12/22 Specimen Type: URINE No comment entered. Ordering Provider: MICKI COTTER AR Report Released Date/Time: Dec 23, 2023 04:13 PM Reporting Lab: [place] [address] [facility] [address] Performing Lab: [facility] [address] [facility] [address] [facility] URINALYS IS (STL-PB) HEMOGLOBIN [MASS/VOLU ME] IN URINE BY TEST STRIP Negative mg/dL 12/22 Specimen Type: URINE No comment entered. Ordering Provider: MICKI COTTER AR Report Released Date/Time: Dec 23, 2023 04:13 PM Reporting Lab: [place] [address] [facility] [address] Performing Lab: [place] [address] [facility] [address] [facility] URINALYS IS (STL-PB) KETONES [MASS/VOLU ME] IN URINE BY TEST STRIP Negative mg/dL 12/22 Specimen Type: URINE No comment entered. Ordering Provider: MICKI COTTER Report Released Date/Time: Dec 23, 2023 04:13 PM Reporting Lab: [place] [address] [facility] [address] Performing Lab: [address] [address] [facility] URINALYS IS (STL-PB) URN.LEUK.E ST. Negative mg/dL 12/22 Specimen Type: URINE No comment entered. Ordering Provider: MICKI COTTER Report Released Date/Time: Dec 23, 2023 04:13 PM Reporting Lab: [address] [address] Performing Lab: [address] [address] [facility] URINALYS IS (STL-PB) SPECIFIC GRAVITY OF URINE 1.009 1.005 - 1.029 12/22 Specimen Type: URINE No comment entered. Ordering Provider: MICKI COTTER AR Report Released Date/Time: Dec 23, 2023 04:13 PM Reporting Lab: [place] [address] [place] [phone] Performing Lab: [facility] [address] [facility] [address] [facility] METHADON E PANEL (STL) ETHANOL [MASS/VOLU ME] IN URINE Negative mg/dL 0 - 20 04/12 Specimen Type: URINE Comment: The cut-off value for this test was laboratory developed and its performance characteris tics confirmed by the [facility] laboratory thru method comparison with reference laboratory and medication chart review. The laboratory is regulated under CLIA as qualified to perform high-comple xity testing. This test is used for clinical purposes in conjunction with other laboratory tests. Ordering Provider: MERLE LANG Report Released Date/Time: Apr 12, 2023 07:25 AM Reporting Lab: [address] [address] Performing Lab: [address] [address] [facility] METHADON E PANEL (STL) AMPHETAMIN E [PRESENCE] IN URINE BY SCREEN METHOD Negative ng/mL 04/12 Specimen Type: URINE Comment: The cut-off value for this test was laboratory developed and its performance characteris tics confirmed by the [facility] laboratory thru method comparison with reference laboratory and medication chart review. The laboratory is regulated under CLIA as qualified to perform high-comple xity testing. This test is used for clinical purposes in conjunction with other laboratory tests. Ordering Provider: MERLE LANG Report Released Date/Time: Apr 12, 2023 07:25 AM Reporting Lab: [place] [address] [facility] [address] Performing Lab: [address] [address] [facility] METHADON E PANEL (STL) BENZOYLECG ONINE [PRESENCE] IN URINE Negative ng/mL 04/12 Specimen Type: URINE Comment: The cut-off value for this test was laboratory developed and its performance characteris tics confirmed by the [facility] laboratory thru method comparison with reference laboratory and medication chart review. The laboratory is regulated under CLIA as qualified to perform high-comple xity testing. This test is used for clinical purposes in conjunction with other laboratory tests. Ordering Provider: MERLE LANG Report Released Date/Time: Apr 12, 2023 07:25 AM Reporting Lab: [facility] [address] [facility] [address] Performing Lab: [facility] [address] [facility] [address] [facility] METHADON E PANEL (STL) BENZODIAZE PINES [PRESENCE] IN URINE BY SCREEN METHOD Negative ng/mL 04/12 Specimen Type: URINE Comment: The cut-off value for this test was laboratory developed and its performance characteris tics confirmed by the [facility] laboratory thru method comparison with reference laboratory and medication chart review. The laboratory is regulated under CLIA as qualified to perform high-comple xity testing. This test is used for clinical purposes in conjunction with other laboratory tests. Ordering Provider: MERLE LANG Report Released Date/Time: Apr 12, 2023 07:25 AM Reporting Lab: [address] [address] Performing Lab: [address] [address] [facility] METHADON E PANEL (STL) CANNABINOI DS [PRESENCE] IN URINE BY SCREEN METHOD 100-POSn g/mL 04/12 Specimen Type: URINE Comment: The cut-off value for this test was laboratory developed and its performance characteris tics confirmed by the [facility] laboratory thru method comparison with reference laboratory and medication chart review. The laboratory is regulated under CLIA as qualified to perform high-comple xity testing. This test is used for clinical purposes in conjunction with other laboratory tests. Ordering Provider: MERLE LANG Report Released Date/Time: Apr 12, 2023 07:25 AM Reporting Lab: [facility] [address] [place] [address] Performing Lab: [facility] [place] [address] [address] [facility] METHADON E PANEL (STL) METHADONE [PRESENCE] IN URINE Negative ng/mL 04/12 Specimen Type: URINE Comment: The cut-off value for this test was laboratory developed and its performance characteris tics confirmed by the [facility] laboratory thru method comparison with reference laboratory and medication chart review. The laboratory is regulated under CLIA as qualified to perform high-comple xity testing. This test is used for clinical purposes in conjunction with other laboratory tests. Ordering Provider: MERLE LANG Report Released Date/Time: Apr 12, 2023 07:25 AM Reporting Lab: [address] [address] Performing Lab: [address] [address] [facility] METHADON E PANEL (STL) OPIATES [PRESENCE] IN URINE BY SCREEN METHOD Negative ng/mL 04/12 Specimen Type: URINE Comment: The cut-off value for this test was laboratory developed and its performance characteris tics confirmed by the [facility] laboratory thru method comparison with reference laboratory and medication chart review. The laboratory is regulated under CLIA as qualified to perform high-comple xity testing. This test is used for clinical purposes in conjunction with other laboratory tests. Ordering Provider: MERLE LANG Report Released Date/Time: Apr 12, 2023 07:25 AM Reporting Lab: [address] [address] Performing Lab: [address] [address] [facility] METHADON E PANEL (STL) CREATININE [MASS/VOLU ME] IN URINE 59.3 mg/dL 47 - 110 04/12 Specimen Type: URINE Comment: The cut-off value for this test was laboratory developed and its performance characteris tics confirmed by the [facility] laboratory thru method comparison with reference laboratory and medication chart review. The laboratory is regulated under CLIA as qualified to perform high-comple xity testing. This test is used for clinical purposes in conjunction with other laboratory tests. Ordering Provider: MERLE LANG Report Released Date/Time: Apr 12, 2023 07:25 AM Reporting Lab: [facility] [address] [facility] [address] Performing Lab: [facility] [address] [facility] [address] [facility] METHADON E PANEL (STL) OXYCODONE CUTOFF [MASS/VOLU ME] IN URINE FOR SCREEN METHOD Negative ng/mL 04/12 Specimen Type: URINE Comment: The cut-off value for this test was laboratory developed and its performance characteris tics confirmed by the [facility] laboratory thru method comparison with reference laboratory and medication chart review. The laboratory is regulated under CLIA as qualified to perform high-comple xity testing. This test is used for clinical purposes in conjunction with other laboratory tests. Ordering Provider: MERLE LANG Report Released Date/Time: Apr 12, 2023 07:25 AM Reporting Lab: [place] [address] [facility] [address] Performing Lab: [address] [address] [facility] METHADON E PANEL (STL) BUPRENORPH INE [PRESENCE] IN URINE Negative 04/12 Specimen Type: URINE Comment: The cut-off value for this test was laboratory developed and its performance characteris tics confirmed by the [facility] laboratory thru method comparison with reference laboratory and medication chart review. The laboratory is regulated under CLIA as qualified to perform high-comple xity testing. This test is used for clinical purposes in conjunction with other laboratory tests. Ordering Provider: MERLE LANG Report Released Date/Time: Apr 12, 2023 07:25 AM Reporting Lab: [facility] [address] [facility] [address] Performing Lab: [facility] [address] [place] [address] [facility] METHADON E PANEL (STL) FENTANYL [PRESENCE] IN URINE Negative ng/mL 04/12 Specimen Type: URINE Comment: The cut-off value for this test was laboratory developed and its performance characteris tics confirmed by the [facility] laboratory thru method comparison with reference laboratory and medication chart review. The laboratory is regulated under CLIA as qualified to perform high-comple xity testing. This test is used for clinical purposes in conjunction with other laboratory tests. Ordering Provider: MERLE LANG Report Released Date/Time: Apr 12, 2023 07:25 AM Reporting Lab: [facility] [address] [facility] [address] Performing Lab: [address] [address] [facility] GC & CHLAMYDI A PCR (STL-PB) NEISSERIA [...] Apr 06, 2023 02:04 PM Reporting Lab: [facility] [address] [facility] [address] Performing Lab: [place] [address] [facility] [address] [facility] GC & CHLAMYDI A PCR (STL-PB) CHLAMYDIA [...] Apr 06, 2023 02:04 PM Reporting Lab: [address] [address] Performing Lab: [address] [address] [facility] RAPID PLASMA REAGIN (RPR) REAGIN AB [PRESENCE] IN SERUM BY RPR NON-REAC TIVE 04/07 Specimen Type: SERUM No comment entered. 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 Location Location Details Encounter Type Encounter Number Reason For Visit Attending Provider ADM Date DC Date Status Disposition Source [facility](IEP Primary Care) OUTPATIENT [id number] Notes Entered by: VERNON DURÁN OD 29 Sep 2017 1104 ------- ------- ------- ------- -- right ankle injury TEZ AJ 09/29 Released with Work/Duty Limitations [employer](I EP Primary Care) [employer](PES Optometry -Trainee) OUTPATIENT [id number] BARRON LEAL 09/29 Released w/o Limitations [employer](P ES Optomet ry-Kirill nee) [employer]([facility] Physical Exam) OUTPATIENT [id number] Notes Entered by: Nicolasa CHEATHAM 03 Oct 2017 0734 ------- ------- ------- ------- -- To get clear to ship for right ankle TEZ AJ 10/03 Released w/o Limitations [employer](R MC Physica l Exam) [facility](JORGE LUIS C Immunizat ions (Post)) OUTPATIENT [id number] Notes Entered by: Pietre GOMEZ 04 Oct 2017 1005 ------- ------- ------- ------- -- IET MESHA NOLAN 10/04 Released w/o Limitations [facility] Immuniz ations (Post)) [facility] Physical Therapy) OUTPATIENT [id number] Notes Entered by: FORTUNATO ORDOÑEZ 06 Oct 2017 0955 ------- ------- ------- ------- -- Ankle pain DULCE MARIA KEMP 10/06 Released w/o Limitations [facility](T MC Physica l Therapy ) [facility]) OUTPATIENT [id number] Notes Entered by: FORTUNATO ORDOÑEZ 12 Oct 2017 1021 ------- ------- ------- ------- -- Ankle pain DULCE MARIA KEMP 10/12 Released with Work/Duty Limitations [employer](T MC Physica l Therapy ) [facility] Immunizat ions (Post)) OUTPATIENT [id number] Notes Entered by: Pieter GOMEZ 02 Nov 2017 1017 ------- ------- ------- ------- -- DF MESHA NOLAN 11/02 Released w/o Limitations [facility](M [facility] Immuniz ations (Post)) [facility]([address]) OUTPATIENT [id number] Notes Entered by: RIO LIPSCOMB 02 Jan 2018 0701 ------- ------- ------- ------- -- Lighthe aded Dizzy HARITHA NGO 01/02 Sick at Home/Quarter s [facility]([address]) [facility]([address]) TELE CONSULT [id number] Notes Entered by: HARITHA NGO 03 Jan 2018 1018 ------- ------- ------- ------- -- To review labs ELPIDIO TURCIOS 01/03 [facility]([address]) [facility]([address]) OUTPATIENT [id number] Notes Entered by: RIO LIPSCOMB 05 Jan 2018 0633 ------- ------- ------- ------- -- Follow up call back HARITHA NGO 01/05 Released w/o Limitations [facility]([address]) [facility]([address]) OUTPATIENT [id number] Notes Entered by: SORIN HERZOG 13 Jan 2018 0643 ------- ------- ------- ------- -- ankle pain HARITHA NGO 01/13 Released with Work/Duty Limitations [facility]([address]) [facility]([address]) OUTPATIENT [id number] Notes Entered by: SORIN HERZOG 24 Jan 2018 0634 ------- ------- ------- ------- -- follow up HARITHA NGO 01/24 Released with Work/Duty Limitations [facility]([address]) [facility]([address]) OUTPATIENT [id number] Notes Entered by: RIO LIPSCOMB 30 Jan 2018 0636 ------- ------- ------- ------- -- Ankle pain F/U HARITHA NGO 01/30 Released with Work/Duty Limitations [facility]([address]) [facility]([address]) TELE CONSULT [id number] Notes Entered by: Dick ZAMAN 14 Feb 2018 1447 ------- ------- ------- ------- -- f/u mri WALLY ZAMAN 02/14 [facility]([address]) [facility]([address]) OUTPATIENT [id number] Notes Entered by: Aaron RODRIGUEZ 15 Feb 2018 0705 ------- ------- ------- ------- -- Right Ankle AMINTA BRAMBILA 02/15 Released with Work/Duty Limitations [facility]([address]) [facility]([address]) OUTPATIENT [id number] Pain in right ankle and joints of right foot AMINTA BRAMBILA 02/20 Released with Work/Duty Limitations [facility]([address]) [facility]) OUTPATIENT [id number] unstabl e fractur ed ankle ESTEFANI HOANG 02/21 Released w/o Limitations [facility]) [facility]([address]) OUTPATIENT [id number] Ankle Pain AMINTA BRAMBILA 02/24 Released w/o Limitations [facility] -[facility] Primary [facility] PR) [place]) OUTPATIENT [id number] Notes Entered by: MIKE POWELL E 08 Sep 2018 0929 ------- ------- ------- ------- -- imr/pha /mf 830/flu /hep b/g6pd/ vision YESSENIA LEE 09/08 Released w/o Limitations [place]IEP Hearing Conserv[place] ion Exam[place] OUTPATIENT [id number] Notes Entered by: MANUEL BASURTO 08 Sep 2018 1112 ------- ------- ------- ------- -- MANUEL Rossi 09/08 Released w/o Limitations [place]IEP Hearing Conserv ation Exam) [facility] Dez [facility] ([facility] F[facility] Res [facility] [place]) TELE CONSULT [id number] Notes Entered by: Sandi CHANEY 23 Sep 2018 0744 ------- ------- ------- ------- -- F/u ER visit NYDIA CHANEY 09/23 Referred for Appointment [facility] Medical Group Dez [facility] ([facility] Fam Res [facility] [place]) [facility] HC PRO PHONE CALL 11-20 MIN [id number] [id number] Diagnos is: ICD-10- CM F43.12 Post-tr aumatic stress disorde r, chronic CASADY,TAR A E 08/24 [facility] Outpatient Encounter [id number] Diagnos is: ICD-10- CM F43.10 Post-tr aumatic stress disorde r, unspeci PAWEL Varela S 08/24 [facility] OFFICE O/P EST HI 40 MIN [id number] Diagnos is: ICD-10- CM F43.10 Post-tr aumatic stress disorde r, unspeci PAWEL Varela S 08/24 [facility] [facility] CASE MANAGEMENT [id number] Diagnos is: ICD-10- CM Z59.02 Unshelt ered homesophie NGUYEN,BUD LAURA P 08/[address] [facility] PSYTX W PT 45 MINUTES [id number] [id number] Diagnos is: ICD-10- CM F43.12 Post-tr aumatic stress disorde r, chronic TYRESE,SHE LBY L 08/30 [facility] HC PRO PHONE CALL 21-30 MIN [id number] Diagnos is: ICD-10- CM F43.12 Post-tr aumatic stress disorde r, chronic CASADY,TAR A E 09/01 [facility] [place] [facility] HC PRO PHONE CALL 5-10 MIN [id number] [id number] Diagnos is: ICD-10- CM Z59.02 Unshelt ered homeles celine NGUYEN,MAD LAURA P 09/[address] [facility] HC PRO PHONE CALL 11-20 MIN [id number] [id number] Diagnos is: ICD-10- CM Z59.02 Unshelt ered homeles snanel NGUYEN,MAD LAURA P 09/[address] [facility] CASE MANAGEMENT [id number] [id number] Diagnos is: ICD-10- CM Z59.02 Unshelt ered BUD Byrd P 09/[address] [facility] OFFICE O/P NEW MOD 45 MIN [id number] [id number] Diagnos is: ICD-10- CM F43.10 Post-tr aumatic stress disorde r, unspeci fied MAIRA,JEROMY MARCUM E 09/12 [facility] [place] [facility] HC PRO PHONE CALL 21-30 MIN [id number] [id number] Diagnos is: ICD-10- CM Z59.02 Unshelt BUD SolisNE P 09/[address] [facility] PSYTX W PT 45 MINUTES 58303-7.65 [id number] 523 Diagnos is: ICD-10- CM Z59.02 Unshelt ereBUD MiddletonNE P 09/[address] [facility] PSYTX W PT 60 MINUTES 27459-0.65 [id number] Diagnos is: ICD-10- CM F31.89 Other bipolar disorde r LAY XIONG HARIY L 09/19 [facility] [place] [facility] PT EDUCATION NOC INDIVID [id number] [id number] Diagnos is: ICD-10- CM Z59.02 Unshelt ered homeBUD PoseyNE P 09/[address] [facility] HC PRO PHONE CALL 5-10 MIN [id number] [id number] 139 Diagnos is: ICD-10- CM Z59.02 Unshelt ereBUD MiddletonNE P 09/[address] [facility] PT EDUCATION NOC INDIVID 99697-4.65 [id number] Diagnos is: ICD-10- CM Z59.9 Problem related to housing and economi c whitley daviseverardokenyaROSA ELBA M 09/[address] [facility] PSYTX W PT 60 MINUTES [id number] [id number] Diagnos is: ICD-10- CM F31.89 Other bipolar disorde r LAY XIONG L 10/03 [facility] [place] [facility] HC PRO PHONE CALL 11-20 MIN [id number] [id number] Diagnos is: ICD-10- CM Z59.02 Unshelt ered homeBUD Posey LAURA P 10/[address] [facility] Outpatient Encounter [id number] [id number] 10/04 [facility] Outpatient Encounter [id number] [id number] 10/05 [facility] [place] [facility] PSYTX W PT 30 MINUTES [id number] [id number] Diagnos is: ICD-10- CM Z59.02 Unshelt ered homesophie NGUYENBUD LAURA P 10/[address] [facility] PRO PHONE CALL 21-30 MIN [id number] [id number] Diagnos is: ICD-10- CM Z59.9 Problem related to housing and economi c whitley daviseverardokenya HA ELBA M 10/[address] [facility] PRO PHONE CALL 21-30 MIN 06697-4.65 [id number] Diagnos is: ICD-10- CM Z59.9 Problem related to housing and economi c circums tances, unsp JANOCH,MAD LAURA P 10/16 [address] [facility] Outpatient Encounter [id number] 10/17 [facility] N [facility] Outpatient Encounter [id number]. [id number] 10/17 [facility] N [facility] Outpatient Encounter [id number] [id number] 10/17 [facility] Outpatient Encounter [id number] ABHILASHTAR A E 10/24 [facility] HC PRO PHONE CALL 21-30 MIN 21737-3.65 [id number] Diagnos is: ICD-10- CM Z59.9 Problem related to housing and economi c circums tances, unsp JANOCH,MAD LAURA P 10/26 [address] [facility] Outpatient Encounter [id number] NEHEMIASALLEY 10/26 [facility] CASE MANAGEMENT [id number] [id number] Diagnos is: ICD-10- CM Z59.89 Other problem s related to housing and economi c circums tances GREEN,LEANN SEA 10/31 [address] [facility] HC PRO PHONE CALL 5-10 MIN 52550-8.65 [id number] Diagnos is: ICD-10- CM Z59.9 Problem related to housing and economi c circums tances, unsp JANOCH,MAD LAURA P 11/02 [address] [facility] Outpatient Encounter [id number] [id number] 11/06 [facility] [place] [facility] HC PRO PHONE CALL 21-30 MIN [id number] [id number] Diagnos is: ICD-10- CM Z59.89 Other problem s related to housing and economi c circums LEANN Tsai SEA 11/08 [address] [facility] Outpatient Encounter [id number]. [id number] 11/09 [facility] [place] [facility] HC PRO PHONE CALL 21-30 MIN 31350-9.65 [id number] Diagnos is: ICD-10- CM Z59.89 Other problem s related to housing and economi c circums LEANN Tsai SEA 11/10 [address] [facility] [place] CASE MANAGEMENT [id number]. [id number] Diagnos is: ICD-10- CM Z59.89 Other problem s related to housing and economi c LEANN Leal SEA 11/14 [address] [facility] OFFICE O/P EST MOD 30 MIN [id number] [id number] Diagnos is: ICD-10- CM F10.20 Alcohol depende nce, uncompl icated JEROMY RAO E 11/14 [facility] [place] [facility] Outpatient Encounter [id number] [id number] 11/14 [address] [facility] Outpatient Encounter [id number] [id number] 11/15 [facility] Outpatient Encounter [id number] 11/16 [facility] HC PRO PHONE CALL 21-30 MIN [id number] [id number] Diagnos is: ICD-10- CM F10.20 Alcohol depende nce, uncompl icated CATE HUNG E 11/20 [facility] N [facility] HC PRO PHONE CALL 11-20 MIN [id number] [id number] Diagnos is: ICD-10- CM Z71.89 Other specifi ed milieu counselor ing ALEX BECK 11/21 [facility] N [place] [facility] CASE MANAGEMENT [id number] [id number] Diagnos is: ICD-10- CM Z59.89 Other problem s related to housing and economi c circums tances GREEN,LEANN SEA 11/23 [address] [facility] Outpatient Encounter [id number] [id number] 11[facility]23 [facility] HC PRO PHONE CALL 5-10 MIN [id number] [id number] Diagnos is: ICD-10- CM Z71.89 Other specifi ed milieu counselor ing ALEX BECK 11/29 [facility] [place] CASE MANAGEMENT [id number] [id number] Diagnos is: ICD-10- CM Z59.89 Other problem s related to housing and economi c circums tances GREEN,LEANN SEA 11/[address] [facility] [place] [facility] CASE MANAGEMENT [id number] [id number] Diagnos is: ICD-10- CM Z59.89 Other problem s related to housing and economi c circums tances GREEN,LEANN SEA 12/[address] [facility] Outpatient Encounter [id number] [id number] 12/05 [facility] [place] [facility] Out[facility] Encounter [id number] [id number] 248 12/[address] [facility] Outpatient Encounter [id number] [id number] 12/[address] [facility] Outpatient Encounter [id number] [id number] 12/07 [facility] Outpatient Encounter [id number] [id number] 333 12/08 [facility] En[facility] [id number] [id number] 261 12/08 [facility] Encounter [id number] [id number] 660 12/[address] [facility] Outpatient Encounter [id number] [id number] 12/11 [facility] Outpatient Encounter [id number] [id number] 12/13 [facility] N [facility] Outpatient Encounter [id number] [id number] 12/14 [facility] PSYTX W PT 30 MINUTES [id number] [id number] Diagnos is: ICD-10- CM F10.20 Alcohol depende nce, uncompl icated MARIE CLAROS 12/15 [facility] En[facility] [id number] [id number] 12/22 [facility] OFFICE O/P EST MOD 30 MIN [id number] [id number] Diagnos is: ICD-10- CM F10.20 Alcohol depende nce, uncompl icated MAIRA,AN NA TRIXIE E 12/22 [facility] EMERGENCY DEPT VISIT [facility] [id number] [id number] Diagnos is: ICD-10- CM F10.20 Alcohol depende nce, uncompl icated MUDALLAL,O MAR 12/22 [facility] EMERGENCY DEPT VISIT [facility] [id number] [id number] Diagnos is: ICD-10- CM F10.20 Alcohol depende nce, uncompl icated MUDALLAL,O SEP 0601/08 [facility] Detoxifica tion Services for Substance Abuse Treatment [id number] [id number] Admit Reason: ALCOHOL DETOXIF ICATION KUSHAL GUNN SIR 12/22 [facility] Inpatient Encounter [id number] [id number] SUSI APPIAH HELLE E 12/23 [facility] Inpatient Encounter [id number] [id number] SUSI APPIAH HELLE E 12/23 [facility] Inpatient Encounter [id number] [id number] 002 SUSI APPIAH HELLE E 12/23 [facility] Inpatient Encounter [id number] [id number] SUSI APPIAH HELFLORIAN E 12/23 [facility] Inpatient Encounter [id number] [id number] SCOTT SALES L 12/23 [facility] Inpatient Encounter [id number]. [id number] SCOTT SAL[employer] L 12/23 [facility] DIVFORM[facility]LY [facility] N [facility] PSYCH DIAG EVAL W/MED SRVCS [id number] [id number] Diagnos is: ICD-10- CM F10.20 Alcohol depende nce, uncompl icated Dick VILLARREAL 12/23 [facility] HOSP IP/OBS DSCHRG MGMT >30 77477-0. [id number] Diagnos is: ICD-10- CM F10.20 Alcohol depende nce, uncompl icated LAKIA CHASE 12/23 [facility] N [facility] Inpatient Encounter [id number] [id number] ULYSSESSUSI HELLE 12/23 [facility] [place] [address] CASE MANAGEMENT [id number] [id number] Diagnos is: ICD-10- CM Z59.89 Other problem s related to housing and economi c LEANN Leal 12/[address] [facility] Outpatient Encounter [id number] [id number] 12/27 [facility] [place] [facility] CASE MANAGEMENT [id number] [id number] Diagnos is: ICD-10- CM Z59.89 Other problem s related to housing and economi c circums LEANN Tsai SEA 01/01 [address] [facility] CASE MANAGEMENT [id number] [id number] Diagnos is: ICD-10- CM Z59.89 Other problem s related to housing and economi c circums LEANN Tsai SEA 01/02 [address] [facility] HC PRO PHONE CALL 11-20 MIN [id number] [id number] Diagnos is: ICD-10- CM F10.20 Alcohol depende nce, uncompl icated MONETKapilREN GUCCI BOB 01/02 [facility] Outpatient Encounter [id number] [id number] 01/02 [facility] Outpatient Encounter [id number] [id number] REN PEREYRA 01/02 [facility] Outpatient Encounter [id number] [id number] Diagnos is: ICD-10- CM F10.20 Alcohol depende nce, uncompl icated MICHAEL SUAZO 01/03 [facility] Outpatient Encounter [id number] [id number] Ish TIAN 01/03 [facility] PSYTX W PT 30 MINUTES [id number] [id number] Diagnos is: ICD-10- CM F31.81 Bipolar II disorde r Ish TIAN 01/03 [facility] Outpatient Encounter [id number] [id number] 1 01/03 [facility] N [facility] Outpatient Encounter [id number]. [id number] 01/03 [facility] N [facility] Outpatient Encounter [id number] [id number] JAYLANIsh OSWALDO 01/05 [facility] Outpatient Encounter [id number] JAYLANIsh CHACON 01/08 [facility] PSYTX W PT 60 MINUTES [id number]. [id number] Diagnos is: ICD-10- CM F10.239 Alcohol depende nce with withdra brenna, unspeci fied Ish TIAN 01/09 [facility] Outpatient Encounter [id number] 01/09 [facility] [id number] Diagnos is: ICD-10- CM Z59.89 Other problem s related to housing and economi c circums LEANN Tsai 01/12 [address] [facility] HC PRO PHONE CALL 11-20 MIN [id number]. [id number] Diagnos is: ICD-10- CM F10.20 Alcohol depende nce, uncompl icated REN PEREYRA 01/15 [facility] Outpatient Encounter [id number] [id number] 01/15 [facility] Outpatient Encounter [id number] REN PEREYRA LISBETH 01/15 [facility] OFFICE O/P EST MOD 30 MIN [id number] [id number] Diagnos is: ICD-10- CM F43.10 Post-tr aumatic stress disorde r, unspeci JEROMY Dorantes TRIXIE E 02/02 [facility] Outpatient Encounter [id number] [id number] 1 02/20 [facility] Outpatient Encounter [id number] [id number] 03/07 [facility] [place] [address] [facility] MANAG[facility] [id number] [id number] Diagnos is: ICD-10- CM Z59.89 Other problem s related to housing and economi c circums taneverardo GREEN,LEANN SEA 03/09 [address] [facility] Outpatient Encounter [id number] GREEN,LEANN SEA 03/09 [facility] Outpatient Encounter [id number] GREEN,LEANN SEA 03/09 [facility] OFF[facility] O/P EST MOD 30 MIN [id number] Diagnos is: ICD-10- CM F43.10 Post-tr aumatic stress disorde r, unspeci JEROMY Dorantes NA TRIXIE E 03/22 [facility] Outpatient Encounter [id number] 03/27 [facility] Outpatient Encounter [id number] JAYLANIsh CHACON 03/27 [facility] QNHP OL DIG ASSMT&MGMT 5-10 [id number] Diagnos is: ICD-10- CM F43.10 Post-tr aumatic stress disorde r, unspeci fied AKASHBELLA RONALD S 03/27 [facility] PRO PHONE CALL 11-20 MIN [id number] Diagnos is: ICD-10- CM F10.220 Alcohol depende nce with intoxic ation, uncompl icated JAYLANIsh [place] 03/27 [facility] Outpatient Encounter [id number] 04/01 [facility] CRISIS INTERVEN SVC, 15 MIN [id number] [id number] Diagnos is: ICD-10- CM F43.12 Post-tr aumatic stress disorde r, chronic O'JO,CO LLEEN E 04/01 [facility] HLTH BHV ASSMT/REAS SESSMENT [id number] Diagnos is: ICD-10- CM Z78.9 Other specifi ed health status MORE LOPEZ 04/03 [facility] Outpatient Encounter [id number] MARIE CLAROS 04/04 [facility] Outpatient Encounter [id number] 04/04 [facility] Outpatient Encounter [id number] 04/05 [facility] Outpatient Encounter [id number] JAYRO ANTONIO 04/06 [facility] Outpatient Encounter [id number] REN PEREYRA 04/06 [facility] HC PRO PHONE CALL 5-10 MIN [id number] Diagnos is: ICD-10- CM F10.20 Alcohol depende nce, uncompl icated REN PEREYRA 04/09 [facility] Outpatient Encounter [id number] REN PEREYRA 04/09 [facility] [place] [facility] CASE MANAGEMENT [id number] Diagnos is: ICD-10- CM Z59.89 Other problem s related to housing and economi c circums LEANN Tsai 04/[address] [facility] Outpatient Encounter [id number] 04/12 [facility] OFFICE O/P EST MOD 30 MIN [id number] Diagnos is: ICD-10- CM F43.10 Post-tr aumatic stress disorde r, unspeci fied JEROMY RAO 05/04 [facility] Outpatient Encounter [id number] 05/[address] [facility] [facility] [address] [facility] Outpatient Encounter [id number] Ish TIAN 06/07 [facility] HC PRO PHONE CALL 11-20 MIN [id number] Diagnos is: ICD-10- CM F10.20 Alcohol depende nce, uncompl icated MAREI CLAROS 06/08 [facility] OFFICE O/P EST MOD 30 MIN [id number] Diagnos is: ICD-10- CM F43.10 Post-tr aumatic stress disorde r, unspeci JEROMY Dorantes 06/29 [facility] Outpatient Encounter [id number] Ish TIAN 07/25 [facility] PH1 ASSMT&MGMT NQHP 5-10 [id number] Diagnos is: ICD-10- CM F10.220 Alcohol depende nce with intoxic ation, uncompl icated Ish TIAN 07/25 [facility] SYNCH AUDIO-ONLY EST MOD 30 [id number] Diagnos is: ICD-10- CM F43.10 Post-tr aumatic stress disorde r, unspeci JEROMY Dorantes TRIXIE E 08/24 [facility] Outpatient Encounter [id number] 08/27 [facility] PSYTX W PT W E/M 30 MIN [id number] Diagnos is: ICD-10- CM F43.10 Post-tr aumatic stress disorde r, leanni JEROMY Dorantes VINITA MARCUM E 11/08 [facility] Outpatient Encounter [id number] 02/08 [facility] PSYTX W PT W E/M 30 MIN [id number] Diagnos is: ICD-10- CM F43.10 Post-tr aumatic stress disorde r, leanni fay RAO,JEROMY VINITA TRIXIE E 02/13 [facility] Procedures Combined list of: 1) Procedures from Department of [facility] Affairs facilities going back up to thelast 18 months, not all [place] non-surgical procedures are included; 2) All procedures from the Department of Defense facilities. Procedure Procedure Type Code Date Perfomer Comments [facility] e Audiometry Group Testing Audiometry Group Testing 70850 MANUEL BASURTO [facility] Venipuncture Venipuncture 07939 YESSENIA LEE [facility] RBC G6PD Screening RBC G6PD Screening 39267 02/02 YESSENIA LEE Td Vaccine Seven Years Of Age And Above Preservative Free Td Vaccine Seven Years Of Age And Above Preservative Free 85567 YESSENIA FONG [facility] Immunization Administration Each Additional Vaccine Immunization Administration Each Additional Vaccine 64679 YESSENIA FONG [facility] Immunization Administration One Vaccine Immunization Administration One Vaccine 28786 YESSENIA LEE [facility] Preventive Med Standardized Depre ion Screening: Negative For Symptoms Preventive Med Standardized Depression Screening: Negative For Symptoms 3351F YESSENIA LEE During a mqpm-cu-alwi encounter, I personally reviewed the responses given on the PHQ8 or the SAT by the individual RICHARD Synack which were recorded by the individual on the [facility] website or the required hardcopy SAT. [facility] Non-Physician Phone Call To Patient/Provider Brief (5-10min) Non-Physician Phone Call To Patient/Provider Brief (5-10min) [id number] 018 SARA MACK [facility] Psychologic Testing And Report Administered By Computer Psychologic Testing And Report Administered By Computer [id number] 018 KEVIN CATES [facility] Non-Physician Phone Call To Patient/Provider Brief (5-10min) Non-Physician Phone Call To Patient/Provider Brief (5-10min) 65896 018 SARA MACK [facility] Vaccines Viral Varicella (Active) Vaccines Viral Varicella (Active) 62428 018 GOMEZ [facility] Immunization Administration One Vaccine Immunization Administration One Vaccine 90036 018 [facility] Immunization Administration Each Additional Vaccine Immunization Administration Each Additional Vaccine 79570 018 [facility] Athletic Training Re-evaluation Athletic Training Re-evaluation 64758 018 CIARA KEMP [facility] Exercises A isted Exercises For ROM Exercises Assisted Exercises For ROM 51120 018 VIRIDIANACIARA IVONNE [facility] Foot, arch support, removable, premolded, longitudinal, each 018 VIRIDIANACIARA IVONNE [facility] Physical Therapy Education Orthotics Training Physical Therapy Education Orthotics Training 86292 018 CIARA KEMP [facility] Vaccines Viral Varicella (Active) Vaccines Viral Varicella (Active) 29695 018 [facility] Immunization Admin Intranasal / Oral Each Additional Vaccine Immunization Admin Intranasal / Oral Each Additional Vaccine 02184 018 [facility] Vaccines Adenovirus Type 4 Live, For Oral Use Vaccines Adenovirus Type 4 Live, For Oral Use 96404 018 [facility] Vaccines Adenovirus Type 7 Live, For Oral Use Vaccines Adenovirus Type 7 Live, For Oral Use 69538 018 [facility] Immunization Administration Each Additional Vaccine Immunization Administration Each Additional Vaccine 86158 018 [facility] Vaccines Viral Polio, Inactivated (Salk) Vaccines Viral Polio, Inactivated (Salk) 39604 018 [facility] Tdap Vaccine Tdap Vaccine 28324 018 MESHA GOMEZ [facility] Immunization Administration One Vaccine Immunization Administration One Vaccine 26960 018 MESHA GOMEZ [facility] Determination Of Refractive State Determination Of Refractive State 33073 018 VLAD CHEATHAM [facility] [employer] [facility] Fitting Monofocals (Not For Aphakia) [employer] [facility] Fitting Monofocals (Not For Aphakia) 84343 018 VLAD CHEATHAM Ophthalmological New Patient Start Intermediate Level Care Ophthalmological New Patient Start Intermediate Level Care 69264 018 VLAD CHEATHAM [facility] Non-Physician Phone Call To Patient/Provider Brief (5-10min) Non-Physician Phone Call To Patient/Provider Brief (5-10min) 71424 REY MAN [facility] Psychiatric Evaluation Psychiatric Evaluation 97225 ALYCIA MCGUIRE [facility] Psychiatric Therapy Preparation of Psychiatric Status Report Psychiatric Therapy Preparation of Psychiatric Status Report 04726 ALYCIA MCGUIRE [facility] TELE ASSESS & MGT SRV PROV QUAL NONPHYS HLTH CARE PRO TO EST PAT,PARENT,GUARD NOT ORIG REL ASSESS & MGT SRV PROV W/IN PREV 7 DAYS NOR LEAD ASSESS & MGT SRV/PX W/IN NXT 24 HR/SOON APT;5-10 MIN MED DIS 018 [facility] TELE ASSESS & MGT SRV PROV QUAL NONPHYS HLTH CARE PRO TO EST PAT,PARENT,GUARD NOT ORIG REL ASSESS & MGT SRV PROV W/IN PREV 7 DAYS NOR LEAD ASSESS & MGT SRV/PX W/IN NXT 24 HR/SOON APT;5-10 MIN MED DIS 018 [facility] PSYCHOLOGICAL TSTING (INCL PSYCHODIAG ASSESSMNT, EMOTITY, INTELLECTUAL ABILITIES, PERSONALITY &PSYCHOPATHOLOGY, EG, MMPI), ADMINISTERED COMPUTER, W QUALIFIED HEALTH TEXTILE BAG SEWER INTERPRET &RPT 018 [facility] VARICELLA VIRUS VACCINE (LESLYE), LIVE, FOR SUBCUTANEOUS USE 018 [facility] RE-EVAL,ATHLETIC TRAINING ESTAB PLAN OF CARE REQ:ASSES,CUR FUNC STAT WHEN DOC CHANGE;REV PLAN OF CARE,STAND,ASSESS INSTR &/LINDY ASSESS,FUNC OUTCOME W UPDATE,20 MIN [id number] W THE PATIENT &/FAMILY 018 [facility] FOOT, ARCH SUPPORT, REMOVABLE, PREMOLDED, LONGITUDINAL, EACH [facility] INFLUENZA VIRUS VACCINE, QUADRIVALENT (CCIIV4), DERIVED FROM CELL CULTURES, SUBUNIT, PRESERVATIVE AND ANTIBIOTIC FREE, 0.5 ML DOSAGE, FOR INTRAMUSCULAR USE [facility] FITTING OF SPECTACLES, EXCEPT FOR APHAKIA; MONOFOCAL [facility] EAR MOLD/INSERT, NOT DISPOSABLE, ANY TYPE [facility] PSYCHIATRIC DIAGNOSTIC EVALUATION [facility] PSYCHIATRIC DIAGNOSTIC EVALUATION [facility] TELE ASSESS & MGT SRV PROV QUAL NONPHYS HLTH CARE PRO TO EST PAT,PARENT,GUARD NOT ORIG REL ASSESS & MGT SRV PROV W/IN PREV 7 DAYS NOR LEAD ASSESS & MGT SRV/PX W/IN NXT 24 HR/SOON APT;5-10 MIN MED DIS [facility] AUDIOMETRIC TESTING OF GROUPS [facility] IMMUNIZATION ADMINISTRATION (INCLUDES PERCUTANEOUS, INTRADERMAL, SUBCUTANEOUS, OR INTRAMUSCULAR INJECTIONS); 1 VACCINE (SINGLE OR COMBINATION VACCINE/TOXOID) [facility] Social History Combined list of available smoking, tobacco, and other social history from Department of Defense and Veterans Affairs facilities. Social History Type Response Date Comment Sour e This section is an empty social history section. [facility]
--- OUTSIDE RECORDS SUMMARY | 2025-02-18 16:00 | XMS_ITS | Encounter Summary ---
Author Organization [facility] Healthcare Address [address] [place] [address] Care Team Providers Care Cork Insulator Helper Name Role Phone Morgan Turner MD Primary Care Provider [phone] Ashish Morrow MD Unavailable Reason for Visit * Reason Comments Vivitrol Injection Encounter Details Date Type Department Care Team (Latest Contact Info) Description 02/18/2025 4:00 PM CDT Clinical Support [facility] of [address] [place] [address] Alcohol dependence with uncomplicated intoxication (HCC) (Primary Dx); Hypoglycemia Social History Tobacco Use Types Packs/Day Years Used Date Smoking Tobacco: Every Day Vaping Alcohol Use Standard Drinks/Week Comments Yes 0 (1 standard drink = 0.6 oz pur e alcohol) Pint of alcohol a day [facility] Utilities Answer Date Recorded In the past 12 months has [employer], [employer], oil, or water [employer] threatened to shut off services in your [...] How often do you attend chur or nondenominational services? Never 07/25/2024 Do you belong to any clubs o r organizations such as pentecostalism groups, unions, fraternal or athletic groups, or [...] time in the past [address] [facility], were you homeless or living in a halfway (including now)? 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 Gender Identity Not on file Sexual Orientation [...] Description 03/05/2025 1:00 PM CDT Hospital Encounter [facility] 1 [place] [address] Ashish Morrow MD [address] [place] [address] DR MCCON[address]LL [address] [place] [address] 03/05/2025 1:00 PM CDT - 03/05/2025 1:30 PM CDT Surgery [facility] 1 [place] [address] Ashish Morrow MD [address] [place] [address] [address] ESOPHAGOGASTRODUODENOSCOPY Scheduled Procedures Name Priority Associated Diagnoses [...] 02/18/2025 documented in this encounter Care Teams Cork Insulator Helper Relationship Specialty Start Date End [place] [address] PCP - General Family Medicine 01/18/24 Ashish Morrow MD [address] [place] [address] Consulting Physician Gastroenterology 06/09/24 documented as of this encounter
[2025-02-19 08:20] VITALS: BP 105/74; PULSE 76; RESP 12; TEMP 36.4; O2SAT 100
[2025-02-19 08:33] LABS: Hematocrit 31.3 % (37.0-47.0); Hemoglobin 10.1 g/dL (12.0-15.0); Immature Granulocyte Percent A 0.3 % (0-0.5); Lymphocytes Absolute Auto 1.26 K/mm3 (0.9-3.2); Mean Corpuscular HGB Conc 32.3 g/dl (32-36); Mean Corpuscular Hemoglobin 23.0 pg (26-34); Mean Corpuscular Volume 71.3 fl (80-100); Nucleated Red Blood Cells Absolute Auto 0.000 K/mm3 (0.0-0.012); Nucleated Red Blood Cells Perc 0.0 % (0.0-0.2); Platelet Count Result 218 k/mm3 (150-375); Red Blood Count 4.39 M/mm3 (4.2-5.4); White Blood Count 6.5 K/mm3 (4.5-10.0)
--- OUTSIDE RECORDS SUMMARY | 2025-02-19 08:41 | XMS_ITS | Encounter Summary ---
Author Organization [facility] Healthcare Address [address] [place] [address] Care Team Providers Care Public Address Technician Name Role Phone Morgan Turner MD Primary Care Provider [phone] Ashish Morrow MD Unavailable [phone] Loida AburtoW Unavailable [phone] Encounter Details Date Type Department Care Team (Late st Contact Info) Description 07/25/2024 Telephone Family Physicians [facility] [address] [facility] [place] [address] Morgan Turner MD [address] [place] [address] Social History Tobacco Use Types Packs/Day Years Used Date Smoking Tobacco: Every Day Vaping Alcohol Use Standard Drinks/Week Comments Yes 0 (1 standard drink = 0.6 oz pur e alcohol) Pint of alcohol a day [facility] Utilities Answer Date Recorded In the past 12 months has [employer] electric, gas, oil, or water company threatened [...] week 07/25/2024 How often do you attend [facility] center or gnosticist services? 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 Gender Identity Not on file Sexual Orientation Not on file documented as of this encounter Miscellaneous Notes * Telephone Encounter - Bridget Geiger - 07/25/2024 9:07 AM CST LIFT SCOURER documented in this encounter Plan of Treatment Upcoming Encounters Date Type Department Care Team (Latest Contact Info) Description 03/05/2025 1:00 PM CDT Hospital Encounter [address] [address] Ashish Morrow MD [address] [place] [address] [place] [address] 03/05/2025 1:00 PM CDT - 03/05/2025 1:30 PM CDT Surgery [address] [address] Ashish Morrow MD [address] [place] [address] [place] [address] ESOPHAGOGASTRODUODENOSCOPY Scheduled Procedures Name Priority Associated Diagnoses Date/Ti me ESOPHAGOGASTRODUODENOSCOPY Erosive esophagitis 03/05/2025 1:00 PM CDT documented as of this encounter Visit Diagnoses Not on filedocumented in this encounter Care Teams Public Address Technician Relationship Specialty Start Date End Date Morgan Turner MD [address] [place] [address] PCP - General Family Medicine 01/18/24 Ashish Morrow MD [address] [place] [address] [place] [address] Consulting Physician Gastroenterology 06/09/24 Loida Aburto, [address] [place] [address] Director Sterile Processing 07/25/24 09/06/24 documented as of this encounter
--- OUTSIDE RECORDS SUMMARY | 2025-02-19 08:41 | XMS_ITS | Clinical Summary ---
Author Organization [facility] Address [address] [facility] [address] Phone Care Team Providers Care Sales And Service Consultant Name Role Phone Provider, None Primary Care [...] = 0.6 oz pur e alcohol) pint/daily [facility] Utilities Answer Date Recorded In the past [...] measures to stabilize the patient. Care Teams Sales And Service Consultant Relationship Specialty Start Date End Date Provider, None [place] PCP - General 12/02/23
--- OUTSIDE RECORDS SUMMARY | 2025-02-19 08:41 | XMS_ITS | Encounter Summary ---
Author Organization [facility] Healthcare Address [address] [place] [address] Care Team Providers Care Fish Drier Name Role Phone Mogran Turner MD Primary Care Provider [phone] Ashish Morrow MD Unavailable [phone] Encounter Details Date Type Department Care Team (Late st Contact Info) Description 02/18/2025 Telephone Family Physicians [facility] [address] [facility] [place] [address] Morgan Turner MD [address] [place] [address] Social History Tobacco Use Types Packs/Day Years Used Date Smoking Tobacco: Every Day Vaping Alcohol Use Standard Drinks/Week Comments Yes 0 (1 standard drink = 0.6 oz pur e alcohol) Pint of alcohol a day [facility] Utilities Answer Date Recorded In the past 12 months has [employer], gas, oil, or water [employer] threatened to shut off services in your [...] week 07/25/2024 How often do you attend [facility] or uatsdin services? Never 07/25/2024 Do you belong to any clubs o r organizations such as catholic groups, unions, fraternal or athletic groups, or [...] any time in the past 12 m [facility], were you homeless or living in a m[facility]p (including now)? 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 Gender Identity Not on file Sexual Orientation [...] Description 03/05/2025 1:00 PM CDT Hospital Encounter [address] [address] Ashish Morrow MD [address] [facility] [address] MCCON[address] [place] [address] 03/05/2025 1:00 PM CDT - 03/05/2025 1:30 PM CDT Surgery [address] [address] Ashish Morrow MD [address] [facility] [address] MCCONNELL [address] [place] [address] ESOPHAGOGASTRODUODENOSCOPY Scheduled Procedures Name Priority Associated Diagnoses Date/Ti nv ESOPHAGOGASTRODUODENOSCOPY Erosive esophagitis 03/05/2025 1:00 PM CDT documented as of this encounter Visit Diagnoses Not on filedocumented in this encounter Care Teams Fish Drier Relationship Specialty Start Date End Date Morgan Turner MD [address] [place] [address] PCP - General Family Medicine 01/18/24 Ashish Morrow MD [address] [place] [address] [place] [address] Consulting Physician Gastroenterology 06/09/24 documented as of this encounter
--- OUTSIDE RECORDS SUMMARY | 2025-02-19 08:41 | XMS_ITS | Clinical Summary ---
Author Organization [facility] Address [address] [place] [address] Care Team Providers Care Supervisor Tunnel Heading Name Role Phone Morgan Turner MD Primary Care Provider [phone] Ashish Morrow MD Unavailable [phone] Allergies Active Allergy Reactions Criticality Noted Date Comments Permethrin Hives Medium 08/08/2024 [place] odor spray cashmere rodas Levonorgestrel-Ethinyl Estrad Vomiting [...] mg IM Every 30 days 11/08/2024 Act le naltrexone microspheres (VIVITROL) intramuscular injection 380 mgIndications:Alcohol [...] b.i.d. Assessment & Plan (08/20/2024 4:15 PM ELECTROENCEPHALOGRAPH TECHNICIAN): Stable, generally well controlled, occasional episodes, generally gets relief on own Continue pantoprazole 40 mg b.i.d.; encourage avoidance of inciting substances including alcohol Hematemesis with nausea 06/08/2024 Upper GI bleed 06/07/2024 Chronic alcoholic gastritis 04/12/2024 Assessment & Plan (08/30/2024 4:37 PM ELECTROENCEPHALOGRAPH TECHNICIAN): Not well controlled; continues to have some abdominal pain, nausea, decreased appetite well drinking alcohol Encourage alcohol cessation Continue pantoprazole 40 mg b.i.d. Assessment & Plan (07/23/2024 11:09 AM ELECTROENCEPHALOGRAPH TECHNICIAN): Currently on pantoprazole. EGD scheduled in the summer. Assessment & Plan (07/17/2024 4:44 PM ELECTROENCEPHALOGRAPH TECHNICIAN): Stable, well controlled; no current stomach pain, [...] 01/18/2024 Assessment & Plan (08/30/2024 4:36 PM ELECTROENCEPHALOGRAPH TECHNICIAN): Stable, well controlled; follows with [place] for medication management; continue quetiapine 25 mg nightly Assessment & Plan (08/20/2024 4:14 PM ELECTROENCEPHALOGRAPH TECHNICIAN): Stable, generally well controlled, no recent episodes [...] follow with counseling and psychiatry services through [place] Major depressive disorder, single episode, unspe cified 01/18/2024 Assessment & Plan (11/15/2024 6:06 PM CDT): Generally well controlled, patient reports she is in a better mood; is in regular contact with her significant other Follows with psychiatry in individual counseling through the [place] Assessment & Plan (10/15/2024 2:51 PM CDT): Stable, follows with psychiatry at the [place] for management Continue Seroquel 25 mg nightly, [...] move soon based upon housing availability from [facility] Posttraumatic stress disorder 01/18/2024 Assessment & [...] disorder Assessment & Plan (07/23/2024 11:11 AM ELECTROENCEPHALOGRAPH TECHNICIAN): Has supportive friend and father. Encouraged working [...] gastritis Assessment & Plan (08/30/2024 4:36 PM ELECTROENCEPHALOGRAPH TECHNICIAN): Not well controlled; patient reports drinking about [...] withdrawal Assessment & Plan (08/20/2024 4:14 PM ELECTROENCEPHALOGRAPH TECHNICIAN): Not well controlled, not currently drinking, but has had severe cravings, patient has multiple episodes episodic binge drinking Patient had generally has good relief with the medication Continue Vivitrol every 30 days; acamprosate 666 mg t.i.d. Assessment & Plan (07/23/2024 11:11 AM ELECTROENCEPHALOGRAPH TECHNICIAN): Will proceed to [facility] ED for Vivitrol injection today. Will return for her follow-up appointment in 10 days with PCP. Encouragement provided. Safety reviewed. Assessment & Plan (07/17/2024 4:43 PM ELECTROENCEPHALOGRAPH TECHNICIAN): Stable, improving; no alcohol since last visit; due for injection on July 15, but would like to delay in order to allow for some alcohol use Discourage delay; would continue naltrexone monthly; add acamprosate 2 tablets t.i.d. Assessment & Plan (06/07/2024 4:51 PM ELECTROENCEPHALOGRAPH TECHNICIAN): Not well controlled, can had recent relapse, [...] doing better at this time; engaged with recovery analyst; discussion with Peer resource recovery engineer today Encouraged continued work towards complete cessation [...] PM CDT Clinical Support [facility] [address] [address] Alcohol dependence with uncomplicated intoxication (HCC) (Primary Dx); Hypoglycemia 02/18/2025 Telephone [facility] [address] [address] Morgan Turner MD 02/13/2025 Telephone [facility] [address] [address] Morgan Turner MD 01/14/2025 1:15 PM CDT Clinical Support [facility] [address] [address] 01/14/2025 Telephone [facility] [address] [address] Morgan Turner MD 01/08/2025 Telephone [facility] [address] [address] Morgan Turner MD 12/14/2024 Nurse Triage [facility] [address] [address] Morgan Turner MD 12/11/2024 9:15 AM CDT Clinical Support [facility] [address] [address] Alcohol dependence with uncomplicated intoxication (HCC) (Primary Dx) 12/11/2024 Telephone [facility] [address] [address] Morgan Turner MD Med Refill 12/11/2024 Telephone [facility] [address] [address] Nena Souza MA Vivitrol Injection Re-Order 12/10/2024 Telephone [facility] [address] [address] Morgan Turner MD Medical Question/Miscellane ous 12/10/2024 Telephone [facility] G[facility] at [address] [place] [address] [place] 11/30/2024 Telephone [facility] at [address] [place] [address] Hailey Arango Appointment 11/29/2024 Telephone [facility] [address] [address] Morgan Turner MD Vivitrol Injection from Last [...] e alcohol) Pint of alcohol a day [facility] Utilities Answer Date Recorded In the [...] often do you attend chur ch or orthodox services? Never 07/25/2024 Do you belong to any clubs o r organizations such as baptism groups, unions, fraternal or athletic groups, or [...] on file Legal Sex Female 6:50 PM ELECTROENCEPHALOGRAPH TECHNICIAN Gender Identity Not on file Sexual Orientation [...] Description 03/05/2025 1:00 PM CDT Hospital Encounter [facility] [address] [place] [address] Ashish Morrow MD [address] [place] [address] [address] [place] [address] 03/05/2025 1:00 PM CDT - 03/05/2025 1:30 PM CDT Surgery [facility] [address] [place] [address] Ashish Morrow MD [address] [facility] [address] [place] [address] ESOPHAGOGASTRODUODENOSCOPY Scheduled Procedures Name Priority Associated Diagnoses [...] Advance Directives For more information, please contact: [phone] * Full Code (Latest Code Status on File) Date Activated Date Inactivated Comments 06/09/2024 9:37 AM 06/09/2024 7:14 PM * Full Code Date Activated Date Inactivated Comments 06/08/2024 3:33 AM 06/09/2024 9:37 AM * Full Code Date Activated Date Inactivated Comments 01/11/2024 7:42 AM 01/13/2024 6:46 PM Care Teams Supervisor Tunnel Heading Relationship Specialty Start Date End Date Morgan [place] [address] PCP - General Family Medicine 01/18/24 Ashish Morrow MD [address] [place] [address] [place] [address] Consulting Physician Gastroenterology 06/09/24
--- OUTSIDE RECORDS SUMMARY | 2025-02-19 08:41 | XMS_ITS | Clinical Summary ---
Author Organization [facility] Address [address] [place] [address] Care Team Providers Care Manager Sports Name Role Phone Unavailable Primary Care Provider Unavailabl e Source Comments [facility],non-owned Affiliates and Associated Physician Practices is amultiple site organization consisting of ambulatory clinics and hospital sitesin [place], [place], [place] and [place]. This disclosure is being madepursuant to the Care Everywhere program and may not contain all information available regarding this patient. Last updated 18.[facility] Allergies No known active allergies Medications * [...] housing, medical care, and heating? Hard 10/29/2022 [facility] [place] of Occupat ional Health - Occupational Stress [...] health care facility (including now)? No 10/29/2022 Comments Unknown Sex and Gender Information Value Date Recorded Sex Assigned at Not on file Legal Sex Female 3:07 PM TEACHING MANAGER Gender Identity Not on file Sexual [...] complete this topic Insurance [place] [address] Advance Directives * Full Code (Latest Code Status on File) Date Activated Date Inactivated Comments 02/23/2023 5:32 AM 02/23/2023 2:00 PM * Full Code Date Activated Date Inactivated Comments 10/29/2022 11:19 AM 11/01/2022 11:54 AM
--- OUTSIDE RECORDS SUMMARY | 2025-02-19 08:41 | XMS_ITS | Encounter Summary ---
Author Organization [facility] Healthcare Address [address] [place] [address] Care Team Providers Care 3Rd Mate Name Role Phone No, Physician Primary Care Provider [phone] Morgan Turner MD Primary Care Provider [phone] Ashish Morrow MD Unavailable [phone] Silvia Zhang MA Unavailable Unavailable Loida Aburto LCSW Unavailable [phone] Encounter Details Date Type Department Care Team (Late st Contact Info) Description 01/16/2024 [facility] Post Discharge Follow up phone call [address] [address] Dhara Laughlin, RN Social History Tobacco Use Types Packs/Day Years Used Date Smoking Tobacco: Every Day Vaping Alcohol Use Standard Drinks/Week Comments Yes 0 (1 standard drink = 0.6 oz pur e alcohol) Pint of alcohol a day [facility] Utilities Answer Date Recorded In the past 12 months has [employer] electric, gas, oil, or water company threatened [...] week 01/12/2024 How often do you attend [facility] or orthodoxy services? 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 Gender Identity Not on file Sexual Orientation [...] Description 03/05/2025 1:00 PM CDT Hospital Encounter [address] [address] Ashish Morrow MD [address] [place] [address] [place] [address] 03/05/2025 1:00 PM CDT - 03/05/2025 1:30 PM CDT Surgery [address] [address] Ashish Morrow MD [address] [place] [address] [address] [place], [place] [address] [address] ESOPHAGOGASTRODUODENOSCOPY Scheduled Procedures Name Priority Associated Diagnoses Date/Ti de ESOPHAGOGASTRODUODENOSCOPY Erosive esophagitis 03/05/2025 1:00 PM CDT documented as of this encounter Visit Diagnoses Not on filedocumented in this encounter Care Teams 3Rd Mate Relationship Specialty Start Date End Date No, Physician PCP - General 01/11/24 01/17/24 Morgan Turner MD [address] [place] [address] PCP - General Family Medicine 01/18/24 Ashish Morrow MD [address] [place] [address] [place] [address] Consulting Physician Gastroenterology 06/09/24 Silvia Zhang, MA [address] [place] [address] [facility] Clinical Pharmacy Manager 07/24/24 07/24/24 Loida Aburto, SENIOR MEDICAL WRITER [address] [place] [address] Heating Unit Mechanic 07/25/24 09/06/24 documented as of this encounter
[2025-02-19 08:59] LABS: Alanine Aminotransferase 20 U/L (6-35); Albumin Level 4.3 g/dL (3.5-5.1); Alkaline Phosphatase 67 U/L (38-126); Anion Gap 13 mmol/L (4-12); Aspartate Amino Transferase 37 U/L (14-36); Bilirubin,Total 0.6 mg/dL (0.2-1.3); Blood Urea Nitrogen 4 mg/dL (7-17); Calcium 9.0 mg/dL (8.4-10.2); Carbon Dioxide 17 mmol/L (22-30); Chloride 108 mmol/L (98-107); Estimated CRCL calculation 115 ml/min; Estimated Glomerular Filt Rate > 60; Glucose 89 mg/dL (65-110); Potassium 3.2 mmol/L (3.4-5.0); Sodium 138 mmol/L (137-145); Total Protein 7.6 g/dL (6.3-8.2)
[2025-02-19 09:18] LABS: Anisocytosis 1+; Hypochromasia 1+; Ovalocytes 1+; Schistocytes None Seen
--- NOTE | 2025-02-19 10:20 | ED.ALCOHOL ---
HPI - Alcohol General Chief Complaint: Alcohol Stated Complaint: etoh Time Seen by Provider: 02/19/25 08:20 History of Present Illness HPI narrative: Patient with history of alcohol use disorder presents here for anxiety, she had been drinking heavily. Also reports some nausea vomiting. Related Data Home Medications ?Medication ?Instructions ?Recorded ?Confirmed ?Last Taken ?Type naltrexone microspheres 380 mg 380 mg IM MONTHLY 01/14/25 02/16/25 01/14/25 History intramuscular suspension,extended release (Vivitrol) acamprosate 333 mg tablet,delayed 666 mg PO TID 02/16/25 02/16/25 Unknown History release hydroxyzine HCl 50 mg tablet 50 mg PO TID PRN anxiety 02/16/25 02/16/25 Unknown History pantoprazole 40 mg tablet,delayed 40 mg PO Q12H 02/16/25 02/16/25 Unknown History release thiamine HCl (vitamin B1) 100 mg 100 mg PO DAILY 02/16/25 02/16/25 Unknown History tablet (Vitamin B-1) Allergies Allergy/AdvReac Type Severity Reaction Status Date / Time No Known Allergies Allergy Verified 02/16/25 21:51 Review of Systems Review of Systems: All systems reviewed & are unremarkable except as noted in HPI and below PMFSH Past Medical History Medical History (Updated 02/19/25 @ 10:19 by Chelsea Kruse MD) Alcohol abuse PTSD (post-traumatic stress disorder) Alcoholism Family History Family History Mother Hypertension Lung cancer Sibling Hypertension Sibling Hypertension Father Hypertension Sibling Heart murmur Social History Social History Smoking packs per day: 1 Smoking cigarettes per day: 20.0 Years smoked: 15 Smoking pack-years: 15.00 Smoking status: Former smoker Tobacco type: cigarettes and e-cigarettes/vaping Alcohol intake: current Drinks per week: 30 Substance use: current Substance use type: marijuana Other substance usage details: Pt drinks 1/5 monthly prior to Vivitrol injection. Last use: 02/16/25 Do You Feel Safe in your Home?: Yes Lack of Transportation: YES Lack of Food: Often True Current Housing: I Have Housing Concerned About Future Housing: No Difficulty Paying Gas/Electric Bills: No Difficulty Paying for Meds: No Currently Unemployed: No Education: Trade/Vocational Certificate Difficulty w/ Childcare or Family Care: No Living arrangements: alone Occupation/Education: unemployed Sexual Orientation (if Verbalized by the Patient): Lesbian, Gordon, or Homosexual Spiritual care concerns: No Exam Narrative: EXAMINATION OF ORGAN SYSTEMS/BODY AREAS: Constitutional: Vital signs per nursing GENERAL:[No acute distress, non-toxic appearing.] HEAD: Normal with no signs of head trauma. EYES: EOMI, conjunctiva normal ENT: Hearing grossly intact LUNGS: Nonlabored breathing. HEART: [Regular rate and rhythm] ABD: [Soft], [nontender to palpation] EXT: Normal range of motion SKIN: [No rashes or lesions.] NEURO: [Alert and oriented x 3. No gross focal sensory or strength deficits.] No facial asymmetry. Speaking with normal clear speech PSYCH: Normal affect Course Vital Signs Vital signs: Vital Signs Temperature 97.6 F 02/19/25 08:20 Pulse Rate 76 02/19/25 08:20 Respiratory Rate 12 02/19/25 08:20 Blood Pressure 105/74 02/19/25 08:20 Pulse Oximetry 100 02/19/25 08:20 Oxygen Delivery Room Air 02/19/25 08:20 Temperature 97.6 F 02/19/25 08:20 Pulse Rate 76 02/19/25 08:20 Respiratory Rate 12 02/19/25 08:20 Blood Pressure 105/74 02/19/25 08:20 Pulse Oximetry 100 02/19/25 08:20 Oxygen Delivery Room Air 02/19/25 08:20 MDM - Alcohol MDM Narrative Medical decision making narrative: Patient presents here stating she does not feel well, she had been drinking heavily and she is a daily drinker. She reports feeling anxious, no shakes, seizures, hallucinations. Reports nausea vomiting, denies any head injury. Her CIWA score here is 5; her vital signs are completely normal. Alcohol levels 19. She is requesting medicine to calm her down. Labs reviewed, she does have low potassium however she refused potassium. I will therefore give her a prescription for this. She is currently requesting discharge. I did speak with her and she is not interested in rehab at this time and is not interested in quitting drinking at this time but is open to resources. Given return precautions and follow-up information Lab Data 02/19/25 08:25 02/19/25 08:25 Labs: Lab Results 02/19/25 Range/Units 08:25 WBC 6.5 (4.5-10.0) K/mm3 RBC 4.39 (4.2-5.4) M/mm3 Hgb 10.1 L (12.0-15.0) g/dL Hct 31.3 L (37.0-47.0) % MCV 71.3 L (80-100) fl MCH 23.0 L (26-34) pg MCHC 32.3 (32-36) g/dl RDW 15.2 H (11.5-14.5) % Plt Count 218 (150-375) k/mm3 MPV 10.0 (7.4-10.4) fl Immature Gran % (Auto) 0.3 (0-0.5) % Neut % (Auto) 73.3 H (45.5-73.1) % Lymph % (Auto) 19.3 (18.3-44.2) % Barron % (Auto) 4.3 (2.6-8.5) % Eos % (Auto) 2.3 (0-4.4) % Baso % (Auto) 0.5 (0.2-1.2) % Lymph # (Auto) 1.26 (0.9-3.2) K/mm3 Barron # (Auto) 0.3 (0.1-0.6) K/mm3 Eos # (Auto) 0.2 (0-0.3) K/mm3 Baso # (Auto) 0.0 (0.0-0.1) K/mm3 Abs Immat Gran (auto) 0.02 (0.00-0.031) K/mm3 Absolute Neuts (auto) 4.8 (1.3-6.7) K/mm3 Absolute Nucleated RBC 0.000 (0.0-0.012) K/mm3 Band Neutrophils % Not Reportable Nucleated RBC % 0.0 (0.0-0.2) % Platelet Estimate Adequate (Adequate) Hypochromasia 1+ Anisocytosis 1+ Ovalocytes 1+ Schistocytes None seen Sodium 138 (137-145) mmol/L Potassium 3.2 L (3.4-5.0) mmol/L Chloride 108 H (98-107) mmol/L Carbon Dioxide 17 L (22-30) mmol/L Anion Gap 13 H (4-12) mmol/L BUN 4 L (7-17) mg/dL Creatinine 0.63 L (0.7-1.0) mg/dL Estim Creat Clear Calc 115 ml/min Estimated GFR > 60 (59 - ) Glucose 89 (65-110) mg/dL Calcium 9.0 (8.4-10.2) mg/dL Total Bilirubin 0.6 (0.2-1.3) mg/dL AST 37 H (14-36) U/L ALT 20 (6-35) U/L Alkaline Phosphatase 67 (38-126) U/L Total Protein 7.6 (6.3-8.2) g/dL Albumin 4.3 (3.5-5.1) g/dL Ethyl Alcohol 19 (<10) mg/dL Discharge Plan Discharge Clinical Impression: Nausea & vomiting, Alcohol use disorder Patient Disposition: Home Condition: Stable Instructions: Abuse of Alcohol (ED) Additional Instructions: Please follow up with your doctor; please consider cutting down on your alcohol use. You can always return for any further issues. Patient Language: Citizen [place] Prescriptions: New potassium chloride 20 mEq packet 20 meq PO DAILY Qty: 5 0RF No Action folic acid 1 mg tablet 1 mg PO DAILY Qty: 30 0RF thiamine HCl (vitamin B1) [Vitamin B-1] 100 mg tablet 100 mg PO DAILY acamprosate 333 mg tablet,delayed release (DR/EC) 666 mg PO TID hydroxyzine HCl 50 mg tablet 50 mg PO TID PRN (Reason: anxiety) pantoprazole 40 mg tablet,delayed release (DR/EC) 40 mg PO Q12H ondansetron 4 mg tablet,disintegrating 4 mg PO Q8H PRN (Reason: nausea and vomiting) Qty: 14 0RF metoclopramide HCl [Reglan] 10 mg tablet 10 mg PO Q6H PRN (Reason: nausea and vomiting) Qty: 14 0RF Vivitrol 380 mg suspension,extended rel recon 380 mg IM MONTHLY Follow-up/Referrals: Johnny,MD Morgan [Primary Care Provider, Unknown]
--- NOTE | 2025-02-19 10:23 | PC.NURSE ---
pt refusing IV potassium. states she just wants to go home. educated pt on importance of receiving potassium. pt still refusing. EDP made aware.
[2025-02-19 10:24] VITALS: BP 116/75; PULSE 91; RESP 17; O2SAT 99
== END 2025-02-19 10:31 | disposition home or self-care (01) ==
PROVIDERS: Emergency Provider Emergency Medicine; PCP Hospitalist
DX: R11.2 Nausea with vomiting, unspecified (principal); F10.90 Alcohol use, unspecified, uncomplicated; Y90.0 Blood alcohol level of less than 20 mg/100 ml
CPT/HCPCS: 36415; 80053; 82077; 85025; 96374; 99284; J1790; J3480

== ENCOUNTER 2025-06-08 23:50 | Emergency (ER) | payer OTHER, SELFPAY ==
--- NOTE | ~2025-06-08 | CT_ITS ---
CT abdomen wo/w con Clinical History: GI BLEED PROTOCOL Technique: Helical images lung bases to pelvic outlet 100 mL Omnipaque 350 Coronal, sagittal reformats. Multiplanar MIPS CT images acquired with automatic exposure control for dose reduction DLP: 732 mGy-cm Comparison: None Findings: CTA Findings: Abdominal aorta: No aneurysm or dissection. Common iliac arteries: Patent. External iliac arteries: Patent. Hypogastric arteries: Patent. CFAs: Patent. Proximal visualized SFAs and profundas: Patent. Celiac: Patent. SMA: Patent. KAMILA: Patent. Renal arteries: Patent. Non-CTA findings: Lung bases: Clear. Visualized heart and pericardium: Unremarkable. Liver: Enlarged. Steatosis. Gallbladder: Unremarkable. Spleen: Unremarkable. Pancreas: Unremarkable. Adrenal glands: Unremarkable. Kidneys: Right kidney- No renal stones. No hydronephrosis. Left kidney- No renal stones. No hydronephrosis. Distal esophagus/stomach: Unremarkable. Small bowel loops: Normal caliber and wall thickness. Colon: Normal caliber and wall thickness. Normal RLQ appendix. Nodes: No enlarged nodes. Peritoneum: No ascites. No free air. Urinary bladder: Unremarkable. Uterus: Unremarkable. Adnexa: No masses. Bones: No acute bony abnormality. Soft tissues: Ill-defined foci within subcutaneous fat along right gluteus. IMPRESSION: 1. No acute abnormality. Reviewed, dictated and finalized at location R. ATIONS PROCESSOR IMPRESSION: 1. No acute abnormality.
--- OUTSIDE RECORDS SUMMARY | 2025-06-08 23:49 | XMS_ITS | Clinical Summary ---
Author Organization [facility] Address [address] [place] [address] Care Team Providers Care Welcome Center Agent Name Role Phone None, Provider MD Primary [...] Cancer Screening 1995 Annual Physical 1998 Hepatitis A Vaccines (2 of 2 - 2-dose series) 10/20/2010 04/21/2010 Hepatitis C 2013 Pneumococcal Vaccine: Pediatrics (0 to 5 Years) and At-Risk Patients (6 to 49 Years) (1 of 2 - PCV) 2014 DTaP, Tdap and Td Vaccines (6 - Td or Tdap) 09/27/2019 09/26/2009, 03/15/2000, 1995, Additional history exists COVID-19 Vaccine (2 - season) 2025 05/27/2021 Influenza Adult (#1) 2025 08/06/2020, 03/16/20 19 Hepatitis B Vaccines Completed 1995, 1995, 1995 [...] patient's age to complete this topic Insurance [place] MEDICA[place] Care Teams Welcome [place] Agent Relationship Specialty Start Date End Date None, Provider, PCP - General 03/20/18
--- OUTSIDE RECORDS SUMMARY | 2025-06-08 23:49 | XMS_ITS | Encounter Summary ---
Author Organization [facility] Healthcare Address [address] [place] [address] Care Team Providers Care Lead Assistant Manager Name Role Phone Morgan Turner MD Primary Care Provider [phone] Ashish Morrow MD Unavailable [phone] Encounter Details Date Type Department Care Team (Late st Contact Info) Description 05/03/2025 Telephone [facility] [address] [facility] [place] [address] Morgan Turner MD [address] [place] [address] Social History Tobacco Use Types Packs/Day Years Used Date Smoking Tobacco: Every Day Vaping Alcohol Use Standard Drinks/Week Comments Not Currently 0 (1 standard drink = 0.6 oz pur e alcohol) Pint of alcohol a day [facility] Utilities Answer Date Recorded In the past 12 months has [employer] gas, oil, or water [employer] threatened to shut off services in your [...] week 07/25/2024 How often do you attend [facility] or congregational services? Never 07/25/2024 Do you belong to any clubs o r organizations such as methodist groups, unions, fraternal or athletic groups, or [...] 21 01/18/2024 Housing Stability Vital Sign Answer Derrikc e Recorded In the last 12 months, was t here a time when you were not able to pay the mortgage or rent on time? No 07/25/2024 In the past 12 months, how m any times have you moved where you were living? 0 07/25/2024 At any time in the past 12 m [facility], were you homeless or living in a fpc (including now)? No 07/25/2024 AUDIT-C Answer Date Recorded Q1: How often do you have a drink containing alcohol? Never 02/28/2025 Q2: How many drinks containi ng alcohol do you have on a typical day when you are drinking? Patient does not drink Q3: How often do you have si x or more drinks on one occasion? Never 02/28/2025 Personal Safety Answer Date Recorded Have you [...] on file Legal Sex Female 6:50 PM SUPPLY CHAIN BUYER Gender Identity Not on file Sexual Orientation Not on file documented as of this encounter Plan of Treatment Upcoming Encounters Date Type Department Care Team (Latest Contact Info) Description 07/08/2025 1:00 PM SUPPLY CHAIN BUYER Hospital Encounter [address] [address] Ashish Morrow MD [address] [place] [address] [place] [address] 07/08/2025 1:00 PM SUPPLY CHAIN BUYER Anesthesia Event [address] [address] Carlos Garcia, DO [address] [place] [address] 07/08/2025 1:00 PM SUPPLY CHAIN BUYER - 07/08/2025 1:30 PM SUPPLY CHAIN BUYER Surgery [address] [address] Ashish Morrow MD [address] [place] [address] [address] [place] [address] ESOPHAGOGASTRODUODENOSCOPY Scheduled Procedures Name Priority Associated Diagnoses Date/Ti fl ESOPHAGOGASTRODUODENOSCOPY Erosive esophagitis 07/08/2025 1:00 PM SUPPLY CHAIN BUYER documented as of this encounter Visit Diagnoses Not on filedocumented in this encounter Care Teams Lead Assistant Manager Relationship Specialty Start Date End Date Morgan Turner [place] [address] PCP - General Family Medicine 01/18/24 Ashish Morrow MD [address] [place] [address] DR [address] [place] [address] Consulting Physician Gastroenterology 06/09/24 documented as of this encounter
--- OUTSIDE RECORDS SUMMARY | 2025-06-08 23:49 | XMS_ITS | Clinical Summary ---
Author Organization [facility] Address [address] [place] [address] Care Team Providers Care Slurry Worker Name Role Phone Unavailable Primary Care Provider Unavailabl e Source Comments [facility],non-owned Affiliates and Associated Physician Practices is amultiple site organization consisting of ambulatory clinics and hospital sitesin [place], [place], [place] and [place]. This disclosure is being madepursuant to the Care Everywhere program and may not contain all information available regarding this patient. Last updated 18.[facility] Allergies No known active allergies Medications * [...] Date Smoking Tobacco: Every Day Cigarettes 1 18.7 Started: 10/04/2006 Smokeless Tobacco: Never Tobacco Cessation:Ready [...] housing, medical care, and heating? Hard 10/29/2022 [facility] [place] of Occupat ional Health - Occupational Stress [...] on file Legal Sex Female 3:07 PM SOAP INSPECTOR Gender Identity Not on file Sexual Orientation [...] VACCINE (1 - 3-dose SCDM series) 2022 DEPRESSION SCREENING 07/04/2024 COVID-19 VACCINE (2 - 2024- season) 2025 05/27/2021 INFLUENZA VACCINE (#1) 2025 , 04/21/2019, 03/16/2019, [...]
--- OUTSIDE RECORDS SUMMARY | 2025-06-08 23:49 | XMS_ITS | Encounter Summary ---
Author Organization [facility] Healthcare Address [address] [place] [address] Care Team Providers Care Advanced Practice Rn Name Role Phone Morgan Turner MD Primary Care Provider [phone] Ashish Morrow MD Unavailable [phone] Loida AburtoW Unavailable [phone] Encounter Details Date Type Department Care Team (Late st Contact Info) Description 07/25/2024 Telephone Family Physicians [facility] [address] [facility] [place] [address] Morgan Turner MD [address] [place] [address] Social History Tobacco Use Types Packs/Day Years Used Date Smoking Tobacco: Every Day Vaping Alcohol Use Standard Drinks/Week Comments Yes 0 (1 standard drink = 0.6 oz pur e alcohol) Pint of alcohol a day [facility] Utilities Answer Date Recorded In the past 12 months has [employer] electric, gas, oil, or water company threatened [...] week 07/25/2024 How often do you attend [facility] or judaism services? Never 07/25/2024 Do you belong to any clubs o r organizations such as mormon groups, unions, fraternal or athletic groups, or [...] on file Legal Sex Female 6:50 PM NETWORK DEVELOPER Gender Identity Not on file Sexual Orientation Not on file documented as of this encounter Miscellaneous Notes * Telephone Encounter - Bridget Geiger - 07/25/2024 9:07 AM CST ORK DEVELOPER documented in this encounter Plan of Treatment Upcoming Encounters Date Type Department Care Team (Latest Contact Info) Description 07/08/2025 1:00 PM NETWORK DEVELOPER Hospital Encounter [address] [address] Ashish Morrow MD [address] [place] [address] DR MCCONNELL [address] [place], [place] [address], [place] [address] 07/08/2025 1:00 PM NETWORK DEVELOPER Anesthesia Event [address] [address] Carlos Garcia, DO [address] [place] [address] 07/08/2025 1:00 PM NETWORK DEVELOPER - 07/08/2025 1:30 PM NETWORK DEVELOPER Surgery [address] [address] Ashish Morrow MD [address] [place] [address] [place] [address] ESOPHAGOGASTRODUODENOSCOPY Scheduled Procedures Name Priority Associated Diagnoses Date/Ti pa ESOPHAGOGASTRODUODENOSCOPY Erosive esophagitis 07/08/2025 1:00 PM NETWORK DEVELOPER documented as of this encounter Visit Diagnoses Not on filedocumented in this encounter Care Teams Advanced Practice Rn Relationship Specialty Start Date End Date [place] [address] PCP - General Family Medicine 01/18/24 Ashish Morrow MD [address] [place] [address] [place] [address] Consulting Physician Gastroenterology 06/09/24 Loida Aburto, [address] [place] [address] Transportation Maintenance Operator 07/25/24 09/06/24 documented as of this encounter
--- OUTSIDE RECORDS SUMMARY | 2025-06-08 23:49 | XMS_ITS | Clinical Summary ---
Author Organization [facility] Address [address] [facility] [address] Phone Care Team Providers Care Appliquer Name Role Phone Provider, None Primary Care [...] = 0.6 oz pur e alcohol) pint/daily [facility] Utilities Answer Date Recorded In the [...] 1995 Pap Smear 2016 Influenza Immunization (#1) 2025 02/0 09/2020, 04/21/2019, 03/16/2019, Additional history exists SARS-COV-2 Immunization ( - season) 2025 05/27/2021 Respiratory Syncytial Virus (RSV) Immunization (Adult) (1 - 1-dose 75+ series) 2070 Human Papillomavirus (HPV) Immunization Completed 04/21/2010, 09/26/2009 Meningococcal Immunization (ACWY) Aged Out 09/30/2017, 09/26/2009 No longer eligibl e based on patient's age to complete this topic TdaP Immunization Completed 09/30/2017, 09/26/2009 Varicella Immunization Completed 8, 09/30/2017, 04/21/2010, Additional history exists Hepatitis B Immunization Completed 019, 11/02/2017, 09/30/2017, [...] measures to stabilize the patient. Care Teams Appliquer Relationship Specialty Start Date End Date Provider, None [place] PCP - General 12/02/23
--- OUTSIDE RECORDS SUMMARY | 2025-06-08 23:49 | XMS_ITS | Encounter Summary ---
Author Organization [facility] Healthcare Address [address] [place] [address] Care Team Providers Care Immersion Metal Cleaner Name Role Phone No, Physician Primary Care Provider [phone] Morgan Turner MD Primary Care Provider [phone] Ashish Morrow MD Unavailable [phone] Silvia Zhang MA Unavailable Unavailable Loida Aburto LCSW Unavailable [phone] Encounter Details Date Type Department Care Team (Late st Contact Info) Description 01/16/2024 [facility] Post Discharge Follow up phone call [address] [address] Dhara Laughlin, RN Social History Tobacco Use Types Packs/Day Years Used Date Smoking Tobacco: Every Day Vaping Alcohol Use Standard Drinks/Week Comments Yes 0 (1 standard drink = 0.6 oz pur e alcohol) Pint of alcohol a day [facility] Utilities Answer Date Recorded In the past 12 months has [employer] electric, gas, oil, or water company threatened [...] week 01/12/2024 How often do you attend [facility] or evangelical services? Never 01/12/2024 Do you belong to any clubs o r organizations such as latter day groups, unions, fraternal or athletic groups, or [...] time in the past 12 m [facility], were you homeless or living in a snf (including now)? No 01/12/2024 Personal Safety Answer [...] on file Legal Sex Female 6:50 PM LEATHER NOVELTY PARTS CUTTER Gender Identity Not on file Sexual Orientation Not on file documented as of this encounter Functional Status * BP Location Answer Date of Assessment Author Left arm 01/18/2024 9:36 AM CDT Gaby Chacon MA * BP Location Answer Date of Assessment Author Left arm 01/18/2024 9:36 AM CDT Gaby Chacon MA documented as of this encounter Nursing Notes * Dhara Laughlin RN - 01/16/2024 12:47 PM CDT Discharge call complete, Follow up requested from Medical stabilization. Will communicate with [facility] and ask them to call her. documented in this encounter Plan of Treatment Upcoming Encounters Date Type Department Care Team (Latest Contact Info) Description 07/08/2025 1:00 PM LEATHER NOVELTY PARTS CUTTER Hospital Encounter [address] [address] Ashish Morrow MD [address] [place] [address] DR MCCONNELL [address] [place] [address], [place] [address] 07/08/2025 1:00 PM LEATHER NOVELTY PARTS CUTTER Anesthesia Event [address] [address] Carlos Garcia, DO [address] [place] [address] 07/08/2025 1:00 PM LEATHER NOVELTY PARTS CUTTER - 07/08/2025 1:30 PM LEATHER NOVELTY PARTS CUTTER Surgery [address] [address] Ashish Morrow MD [address] [facility] [place] [address] ESOPHAGOGASTRODUODENOSCOPY Scheduled Procedures Name Priority Associated Diagnoses Date/Ti nh ESOPHAGOGASTRODUODENOSCOPY Erosive esophagitis 07/08/2025 1:00 PM LEATHER NOVELTY PARTS CUTTER documented as of this encounter Visit Diagnoses Not on filedocumented in this encounter Care Teams Immersion Metal Cleaner Relationship Specialty Start Date End Date No, Physician PCP - General 01/11/24 01/17/24 Morgan Turner MD [address] [place] [address] PCP - General Family Medicine 01/18/24 Ashish Morrow MD [address] [place] [address] DR MCCONNELL [address] [place], [place] [address], [place] [address] Consulting Physician Gastroenterology 06/09/24 Silvia Zhang, MERLE [address] [place] [address] DR [address] [place] [address] ACO Care Machine Builder 07/24/24 07/24/24 Loida Aburto, [address] [place] [address] Solid Waste Technician 07/25/24 09/06/24 documented as of this encounter
[2025-06-08 23:50] VITALS: BP 116/93; PULSE 91; RESP 18; TEMP 36.8; O2SAT 100
--- OUTSIDE RECORDS SUMMARY | 2025-06-08 23:50 | XMS_ITS | Encounter Summary ---
Author Organization [facility] Healthcare Address [address] [place] [address] Care Team Providers Care Continuous Vulcanizing Machine Operator Name Role Phone Morgan Turner MD Primary Care Provider [phone] Ashish Morrow MD Unavailable [phone] Reason for Visit * Reason Onset Date Comments Med Refill 05/10/2025 Encounter Details Date Type Department Care Team (Late st Contact Info) Description 05/10/2025 [facility]phone [facility] [address] [facility] [place] [address] Morgan Turner MD [address] [place] [address] Med Refill Social History Tobacco Use Types Packs/Day Years Used Date Smoking Tobacco: Every Day Vaping Alcohol Use Standard Drinks/Week Comments Not Currently 0 (1 standard drink = 0.6 oz pur e alcohol) Pint of alcohol a day [facility] Utilities Answer Date Recorded In the past 12 months has [employer] electric, gas, oil, or water company threatened [...] week 07/25/2024 How often do you attend [facility] or mormon services? Never 07/25/2024 Do you belong to [...] any time in the past 12 m [facility], were you homeless or living in a m[facility]p (including now)? No 07/25/2024 AUDIT-C Answer Date [...] on file Legal Sex Female 6:50 PM WOOD TREATING INSPECTOR Gender Identity Not on file Sexual Orientation Not on file documented as of this encounter Miscellaneous Notes * Telephone Encounter - Karishma Mccrary - 05/10/2025 12:34 PM CST Medication Question/Clarification Medication Name(s)/Dose: medication to help with alcohol cravings What is the question or clarification needed? Patient could not remember the name of the medicationthat she had been on in the past to help curb her cravings for alcohol. If needed, Pharmacy(s) medication(s) should be sent to: on file Additional Comments: n/a Does message need to be routed? Yes-Action Needed TREATING INSPECTOR documented in this encounter Plan of Treatment Upcoming Encounters Date Type Department Care Team (Latest Contact Info) Description 07/08/2025 1:00 PM WOOD TREATING INSPECTOR Hospital Encounter [address] [address] Ashish Morrow MD [address] [place] [address] 07/08/2025 1:00 PM WOOD TREATING INSPECTOR Anesthesia Event [facility] [address] [place] [address] Carlos Garcia, DO [address] [facility] [address] [place] [address] 07/08/2025 1:00 PM WOOD TREATING INSPECTOR - 07/08/2025 1:30 PM WOOD TREATING INSPECTOR Surgery [facility] [address] [place] [address] Ashish Morrow MD [address] [place] [address] DR MCCONNELL [address] [place] [address] ESOPHAGOGASTRODUODENOSCOPY Scheduled Procedures Name Priority Associated Diagnoses Date/Ti hi ESOPHAGOGASTRODUODENOSCOPY Erosive esophagitis 07/08/2025 1:00 PM WOOD TREATING INSPECTOR documented as of this encounter Visit Diagnoses Not on filedocumented in this encounter Care Teams Continuous Vulcanizing Machine Operator Relationship Specialty Start Date End Date Morgan Turner MD [address] [place] [address] PCP - General Family Medicine 01/18/24 Ashish Morrow MD [address] [place] [address] DR MCCONNELL [address] [place] [address] Consulting Physician Gastroenterology 06/09/24 documented as of this encounter
--- OUTSIDE RECORDS SUMMARY | 2025-06-08 23:50 | XMS_ITS | Clinical Summary ---
Author Organization [facility] Address [address] [place] [address] Care Team Providers Care Epilepsy Physician Name Role Phone Morgan Turner MD Primary Care Provider [phone] Ashish Morrow MD Unavailable [phone] Allergies Active Allergy Reactions Criticality Noted Date Comments Permethrin Hives Medium 08/08/2024 [place] odor spray cashmere rodas Levonorgestrel-Ethinyl Estrad Vomiting Low 01/18/2024 Medications QUEtiapine (SEROquel) 25 mg tablet Take 1 tablet (25 mg total) by mouth nightly 024 Active naltrexone (DEPADE) 50 mg tablet Take 1 tablet (50 mg total) by mouth daily Active cetirizine 10 mg capsule Take 10 mg by mouth daily Active diphenhydrAMINE HCL 25 mg tablet,disintegra ting Take 25 mg by mouth 2 (two) times a day Active hydrOXYzine (ATARAX) 50 mg tablet Take 1 tablet (50 mg total) by mouth every 8 (eight) hours as needed 024 Active chlordiazePOXIDE (LIBRIUM) 25 mg capsule Take 1 capsule (25 mg total) by mouth 3 (three) times a day for 5 days, THEN 1 capsule (25 mg total) 2 (two) times a day for 5 days, THEN 1 capsule (25 mg total) daily for 5 days. 30 capsule 025 Active naltrexone microspheres (VIVITROL) 380 mg suspension,extend ed rel reconIndications: Alcohol dependence with uncomplicated intoxication Inject 380 mg into the muscle as instructed every 30 (thirty) days 1.2 each 6 025 2025 Active aluminum-magnesiu m hydroxide-simethi cone (MAALOX) suspension 200-200-20 mg/5 mL TAKE 30 ML BY MOUTH FOUR TIMES DAILY NEEDED FOR INDIGESTION Active dicyclomine (BENTYL) 10 mg capsuleIndication s:Generalized abdominal cramping Take 1 capsule (10 mg total) by mouth 4 (four) times a day before meals and nightly 120 capsule 11 025 2025 Active folic acid (FOLVITE) 1 mg tabletIndications :Chronic alcoholic gastritis without hemorrhage Take 1 tablet (1 mg total) by mouth daily 90 tablet 3 025 2025 Active melatonin tabletIndications :Chronic alcoholic gastritis without hemorrhage Take 1 tablet (3 mg total) by mouth nightly 30 tablet 11 2025 Active vitamin B-1 100 mg tabletIndications :PATIENT IS TAKING. Take 1 tablet (100 mg total) by mouth daily 90 tablet 3 025 2025 Active ondansetron ODT (ZOFRAN-ODT) 4 mg disintegrating tabletIndications :Chronic alcoholic gastritis without hemorrhage Take 1 tablet (4 mg total) by mouth every 8 (eight) hours as needed for nausea or vomiting 20 tablet [address] (PROTONIX) 40 mg EC tabletIndications :GI Bleed,esophagitis Take 1 tablet (40 mg total) by mouth 2 (two) times a day 60 tablet 2 025 2025 Active prochlorperazine (COMPAZINE) 10 mg tabletIndications :Chronic alcoholic gastritis without hemorrhage Take 1 tablet (10 mg total) by mouth 3 (three) times a day as needed for nausea [address] (CAMPRAL) 333 mg EC tabletIndications :alcoholism Take 2 tablets (666 mg total) by mouth 3 (three) times a day 180 tablet [address] (CAMPRAL) 333 mg EC tabletIndications :alcoholism Take 2 tablets (666 mg total) by mouth 3 (three) times a day 180 tablet 0[address] (CAMPRAL) 333 mg EC tablet TAKE 2 TABLETS(666 MG) BY MOUTH THREE TIMES DAILY 180 tablet 025 2024 Discontinued(D uplicate order) nitrofurantoin monohydrate (MACROBID) 100 mg capsuleIndication s:Acute pyelonephritis Take 1 capsule (100 mg total) by mouth 2 (two) times a day for 7 days 7 capsule 025 2024 Hospital, Clinic, or Other Facility Administered Medication Ordered Dose Route Frequency Start Date End Date Status naltrexone microspheres (VIVITROL) intramuscular injection 380 mgIndications:Alcohol dependence with uncomplicated intoxication 380 mg IM Every 30 days 02/16/2024 Active naltrexone microspheres (VIVITROL) intramuscular injection 380 mgIndications:Alcohol dependence with uncomplicated intoxication 380 mg IM Every 30 days 06/14/2024 Active naltrexone microspheres (VIVITROL) intramuscular injection 380 mgIndications:Alcohol dependence with uncomplicated intoxication 380 mg IM Every 30 days 07/26/2024 Active naltrexone microspheres (VIVITROL) intramuscular injection 380 mgIndications:Alcohol dependence with uncomplicated intoxication 380 mg IM Every 30 days 08/30/2024 Active naltrexone microspheres (VIVITROL) intramuscular injection 380 mgIndications:Alcohol dependence with uncomplicated intoxication 380 mg IM Every 30 days 10/03/2024 Active naltrexone microspheres (VIVITROL) intramuscular injection 380 mgIndications:Alcohol dependence with uncomplicated intoxication 380 mg IM Every 30 days 11/08/2024 Active naltrexone microspheres (VIVITROL) intramuscular injection 380 mgIndications:Alcohol dependence with uncomplicated intoxication 380 mg IM Every 30 days 12/11/2024 Active naltrexone microspheres (VIVITROL) intramuscular injection 380 mgIndications:Alcohol dependence with uncomplicated intoxication 380 mg IM Every 30 days 02/18/2025 Active naltrexone microspheres (VIVITROL) intramuscular injection 380 mgIndications:Alcohol dependence with uncomplicated intoxication 380 mg IM Every 30 days 04/05/2025 Active naltrexone microspheres (VIVITROL) intramuscular injection 380 mgIndications:Alcohol dependence with uncomplicated intoxication 380 mg IM Every 30 days 05/08/2025 Active Active Problems Problem Noted Date Diagnosed [...] b.i.d. Assessment & Plan (08/20/2024 4:15 PM TAXI DRIVER): Stable, generally well controlled, occasional episodes, generally gets relief on own Continue pantoprazole 40 mg b.i.d.; encourage avoidance of inciting substances including alcohol Hematemesis with nausea 06/08/2024 Upper GI bleed 06/07/2024 Chronic alcoholic gastritis 04/12/2024 Assessment & Plan (05/09/2025 1:17 PM TAXI DRIVER): See plan above. Refilled folic acid, vitamin B1, Zofran, and pantoprazole. We will continue to monitor. Orders: folic acid (FOLVITE) 1 mg tablet; Take 1 tablet (1 mg total) by mouth daily melatonin tablet; Take 1 tablet (3 mg total) by mouth nightly vitamin B-1 100 mg tablet; Take 1 tablet (100 mg total) by mouth daily ondansetron ODT (ZOFRAN-ODT) 4 mg disintegrating tablet; Take 1 tablet (4 mg total) by mouth every 8 (eight) hours as needed for nausea or vomiting pantoprazole DR (PROTONIX) 40 mg EC tablet; Take 1 tablet (40 mg total) by mouth 2 (two) times a day Assessment & Plan (08/30/2024 4:37 PM TAXI DRIVER): Not well controlled; continues to have some abdominal pain, nausea, decreased appetite well drinking alcohol Encourage alcohol cessation Continue pantoprazole 40 mg b.i.d. Assessment & Plan (07/23/2024 11:09 AM TAXI DRIVER): Currently on pantoprazole. EGD scheduled in the summer. Assessment & Plan (07/17/2024 4:44 PM TAXI DRIVER): Stable, well controlled; no current stomach pain, [...] 01/18/2024 Assessment & Plan (08/30/2024 4:36 PM TAXI DRIVER): Stable, well controlled; [facility]; continue quetiapine 25 mg nightly Assessment & Plan (08/20/2024 4:14 PM TAXI DRIVER): Stable, generally well controlled, no recent episodes [...] follow with counseling and psychiatry services through [facility] Major depressive disorder, single episode, unspe cified 01/18/2024 Assessment & Plan (11/15/2024 6:06 PM CDT): Generally well controlled, patient reports she is in a better mood; is in regular contact with her significant other Follows with psychiatry in individual counseling through the [facility] Assessment & Plan (10/15/2024 2:51 PM CDT): Stable, follows with psychiatry at the [facility] for management Continue Seroquel 25 mg nightly, continue engagement with individual therapy Assessment & Plan (04/12/2024 3:12 PM CDT): Stable, generally well controlled, in general good mood [facility] Continue quetiapine 25 mg daily, Librium 25 mg, hydroxyzine 50 mg p.r.n. Pain of knee joint on movement 01/18/2024 Nicotine dependence 01/18/2024 Unsheltered homelessness 01/18/2024 Housing instability 01/18/2024 Assessment & Plan (02/28/2024 4:05 PM CDT): Stable, well controlled; stable living current apartment; patient expecting to move soon based upon housing availability from [facility] Posttraumatic stress disorder 01/18/2024 Assessment & [...] disorder Assessment & Plan (07/23/2024 11:11 AM TAXI DRIVER): Has supportive friend and father. Encouraged working with counselor. Alcohol use disorder, severe, dependence 024 Assessment & Plan (11/15/2024 6:06 PM CDT): [...] gastritis Assessment & Plan (08/30/2024 4:36 PM TAXI DRIVER): Not well controlled; patient reports drinking about [...] withdrawal Assessment & Plan (08/20/2024 4:14 PM TAXI DRIVER): Not well controlled, not currently drinking, but has had severe cravings, patient has multiple episodes episodic binge drinking Patient had generally has good relief with the medication Continue Vivitrol every 30 days; acamprosate 666 mg t.i.d. Assessment & Plan (07/23/2024 11:11 AM TAXI DRIVER): Will proceed to [facility] ED for Vivitrol injection today. Will return for her follow-up appointment in 10 days with PCP. Encouragement provided. Safety reviewed. Assessment & Plan (07/17/2024 4:43 PM TAXI DRIVER): Stable, improving; no alcohol since last visit; due for injection on July 15, but would like to delay in order to allow for some alcohol use Discourage delay; would continue naltrexone monthly; add acamprosate 2 tablets t.i.d. 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 01/18/2024 04/24/2025 Encounters Date Type Department Care Team Description 05/27/2025 Telephone [facility] Gastroenterology at [address] [place] [address] Hailey Arango EGD Instructions 05/17/2025 Telephone [facility] [address] [phone] Morgan Turner MD Vivitrol Reorder 05/10/2025 Telephone [facility] [address] [phone] Morgan Turner MD Med Refill 05/10/2025 Results Follow-Up [facility] [address] [phone] Tamela Trinidad NP XR Chest Pa Lateral 2 Views 05/09/2025 1:40 PM TAXI DRIVER - 05/09/2025 11:59 PM TAXI DRIVER Hospital Encounter [facility] [address] [place] [address] Generalized abdominal cramping; Intercostal pain Discharge Disposition: Discharge to home or self care 05/09/2025 1:00 PM TAXI DRIVER Office Visit [facility] [address] [phone] Tamela Trinidad NP Generalized abdominal cramping (Primary Dx); Intercostal pain; Acute pyelonephritis; Chronic alcoholic gastritis without hemorrhage; BMI 20.0-20.9, adult 05/09/2025 Telephone [facility] [address] [phone] Morgan Turner MD 05/08/2025 3:45 PM TAXI DRIVER Clinical Support [facility] [address] [phone] Alcohol dependence with uncomplicated intoxication (Primary Dx) 05/08/2025 Telephone [facility] [address] [phone] Taina Perez 05/07/2025 Telephone [facility] [address] [phone] Morgan Turner MD Medical Question/Miscellane ous; Appointment Request 05/03/2025 Telephone [facility] [address] [phone] Morgan Turner MD 05/02/2025 Telephone [facility] [address] [phone] Morgan Turner MD Medical Question/Miscellane ous 04/10/2025 Telephone [facility] [address] [phone] Elsie Vargas, COUNTER HELP 04/05/2025 1:30 PM CDT Clinical Support [facility] [address] [phone] Alcohol dependence with uncomplicated intoxication (Primary Dx) 04/05/2025 Telephone [facility] [address] [phone] Morgan Turner MD 04/03/2025 Telephone [facility] [address] [phone] Morgan Turner MD Medical Question/Miscellane ous 03/27/2025 Telephone [facility] [address] [phone] Morgan Turner MD Med Refill 03/12/2025 Telephone [facility] Gastroenterology at [address] [place] [address] [place] from Last 3 Months Immunizations Immunization Administration [...] Given: Yes Alcohol Use Standard Drinks/Week Comments Not Currently 0 (1 standard drink = 0.6 oz pur e alcohol) Pint of alcohol a day [employer] Answer Date Recorded In the past 12 months has [employer], or water [employer] threatened to shut off services in your [...] How often do you attend chur or catholic services? Never 07/25/2024 Do you belong to any clubs o r organizations such as mosque groups, unions, fraternal or athletic groups, or [...] time in the past 12 m [facility], were you homeless or living in a [...] on file Legal Sex Female 6:50 PM TAXI DRIVER Gender Identity Not on file Sexual Orientation Not on file Last Filed Vital Signs Vital Sign Reading Time Taken Comments Blood Pressure 110/70 05/09/2025 12:45 PM TAXI DRIVER Pulse 89 05/09/2025 12:45 PM TAXI DRIVER Temperature 36.8 C (98.2 F) 05/09/2025 12:45 PM TAXI DRIVER Respiratory Rate 16 05/09/2025 12:45 PM TAXI DRIVER Oxygen Saturation 99% 05/09/2025 12:45 PM TAXI DRIVER Inhaled Oxygen Concentration - - Weight 63 kg (139 lb) 05/09/2025 12:45 PM TAXI DRIVER Height 175.3 cm (5' 9) 05/09/2025 12:45 PM TAXI DRIVER Body Mass Index 20.53 05/09/2025 12:45 PM TAXI DRIVER Plan of Treatment Upcoming Encounters Date Type Department Care Team (Latest Contact Info) Description 07/08/2025 1:00 PM TAXI DRIVER Hospital Encounter [address] [address] Ashish Morrow MD [address] [place] [address] [place] [address] 07/08/2025 1:00 PM TAXI DRIVER Anesthesia Event [address] [address] Carlos Garcia, DO [address] [facility] [address] [place] [address] 07/08/2025 1:00 PM TAXI DRIVER - 07/08/2025 1:30 PM TAXI DRIVER Surgery [address] [address] Ashish Morrow MD [address] [facility] [place] [address] ESOPHAGOGASTRODUODENOSCOPY Scheduled Procedures Name Priority Associated Diagnoses Date/Ti me ESOPHAGOGASTRODUODENOSCOPY Erosive esophagitis 07/08/2025 1:00 PM TAXI DRIVER Health Maintenance Due Date Last Done Comments Cervical Cancer Screening 1995 Hepatitis C Screening 1995 Regular Well Visit/Exam 18-64 2013 Pneumococcal vaccine <65 (1 of 2 - PCV) 2014 Depression Screening 01/17/2025 01/18/2024, 01/18/20 24 Covid-19 Vaccine (2 - 2024-2 6 season) 2025 05/27/2021 Influenza Vaccine (#1) 2025 , 08/06/2020, 04/21/2019, Additional history exists DTaP/Tdap/Td Vaccine (7 - Td or Tdap) 10/01/2027 09/30/2017, 09/26/2009, 03/15/2000, Additional history exists HPV Vaccines Completed 04/21/2010, 09/26/2009 Varicella Vaccines Completed 11/02/2017, 0 09/30/2017, 04/21/2010, Additional history exists Procedures Procedure Name Priority Date/Time Associated Diagnosis Comments XR CHEST PA LATERAL 2 VIEWS Schedule Routine, Read Routine (OP Routine) 05/09/2025 1:55 PM TAXI DRIVER Intercostal pain XR KUB Schedule Routine, Read Routine (OP Routine) 05/09/2025 1:55 PM TAXI DRIVER Generalized abdominal cramping POCT URINALYSIS DIPSTICK Routine 05/09/2025 1:00 PM TAXI DRIVER Generalized abdominal cramping from Last 3 Months Results * XR Kub (05/09/2025 1:55 PM TAXI DRIVER) Anatomical Region Laterality Modality Body, Abdomen N/A Computed Radiogr aphy 05/09/2025 4:34 PM TAXI DRIVER Impressions 05/09/2025 4:34 PM TAXI DRIVER 1. No acute cardiopulmonary abnormality. 2. Nonobstructive bowel gas pattern. Electronically signed by: Matthew Charlton MD Narrative 05/09/2025 4:34 PM TAXI DRIVER EXAMINATION: XR KUB, XR CHEST PA LATERAL 2 VIEWS HISTORY: abdominal pain. Intercostal pain. TECHNIQUE: Frontal and lateral views of the chest. Single supine view of the abdomen. COMPARISON: CT chest abdomen pelvis 06/08/2024; chest radiograph 11/25/2016 FINDINGS: Cardiac silhouette and mediastinal contours are normal. No focal consolidation. No pleural effusion or pneumothorax. There are no dilated loops of bowel. No obvious free gas in the abdomen allowing for supine technique. No suspicious abdominal calcifications. Visualized osseous structures are unremarkable. Procedure Note Matthew Charlton MD - 05/09/2025 EXAMINATION: XR KUB, XR CHEST PA LATERAL 2 VIEWS HISTORY: abdominal pain. Intercostal pain. TECHNIQUE: Frontal and lateral views of the chest. Single supine view of the abdomen. COMPARISON: CT chest abdomen pelvis 06/08/2024; chest radiograph 11/25/2016 FINDINGS: Cardiac silhouette and mediastinal contours are normal. No focal consolidation. No pleural effusion or pneumothorax. There are no dilated loops of bowel. No obvious free gas in the abdomen allowing for supine technique. No suspicious abdominal calcifications. Visualized osseous structures are unremarkable. IMPRESSION: 1. No acute cardiopulmonary abnormality. 2. Nonobstructive bowel gas pattern. Electronically signed by: Matthew Charlton MD us Tamela Trinidad NP IMG XR PROCEDURES Final Resul t * XR Chest Pa Lateral 2 Views (05/09/2025 1:55 PM TAXI DRIVER) Anatomical Region Laterality Modality Body, Chest N/A Computed Radiogr aphy 05/09/2025 4:34 PM TAXI DRIVER Impressions 05/09/2025 4:34 PM TAXI DRIVER 1. No acute cardiopulmonary abnormality. 2. Nonobstructive bowel gas pattern. Electronically signed by: Matthew Charlton MD Narrative 05/09/2025 4:34 PM TAXI DRIVER EXAMINATION: XR KUB, XR CHEST PA LATERAL 2 VIEWS HISTORY: abdominal pain. Intercostal pain. TECHNIQUE: Frontal and lateral views of the chest. Single supine view of the abdomen. COMPARISON: CT chest abdomen pelvis 06/08/2024; chest radiograph 11/25/2016 FINDINGS: Cardiac silhouette and mediastinal contours are normal. No focal consolidation. No pleural effusion or pneumothorax. There are no dilated loops of bowel. No obvious free gas in the abdomen allowing for supine technique. No suspicious abdominal calcifications. Visualized osseous structures are unremarkable. Procedure Note Matthew Charlton MD - 05/09/2025 EXAMINATION: XR KUB, XR CHEST PA LATERAL 2 VIEWS HISTORY: abdominal pain. Intercostal pain. TECHNIQUE: Frontal and lateral views of the chest. Single supine view of the abdomen. COMPARISON: CT chest abdomen pelvis 06/08/2024; chest radiograph 11/25/2016 FINDINGS: Cardiac silhouette and mediastinal contours are normal. No focal consolidation. No pleural effusion or pneumothorax. There are no dilated loops of bowel. No obvious free gas in the abdomen allowing for supine technique. No suspicious abdominal calcifications. Visualized osseous structures are unremarkable. IMPRESSION: 1. No acute cardiopulmonary abnormality. 2. Nonobstructive bowel gas pattern. Electronically signed by: Matthew Charlton MD Tamela Trinidad NP IMG XR PROCEDURES Final Resul t * (ABNORMAL) POCT urinalysis dipstick (05/09/2025 1:00 PM TAXI DRIVER) Color, Urine, POC Dark Kaitlyn Clarity, ur, POC Clear Clear Glucose, ur, POC Negative Negative Bilirubin, ur, POC Small(A) Negative Ketones, ur, POC Trace(A) Negative Specific [place], POC 1.030 1.003 - 1.030 Blood, ur, POC Trace(A) Negative pH, ur, POC 6.0 5.0 - 8.0 Protein, ur, POC 300.(A) Negative Urobilinogen, urine, POC 1.0 0.2 - 1.0 mg/dL Nitrite, ur, POC Negative Negative Leukocytes, ur, POC 3+(A) Negative Lot Number [id number] Urine 05/09/2025 1:00 PM TAXI DRIVER Tamela Trinidad NP POINT OF CARE TEST ORDERABLES Final Result from Last 3 Months Insurance Advance Directives For more information, please contact: [phone] * Full Code (Latest Code Status on File) Date Activated Date Inactivated Comments 06/09/2024 9:37 AM 06/09/2024 7:14 PM * Full Code Date Activated Date Inactivated Comments 06/08/2024 3:33 AM 06/09/2024 9:37 AM * Full Code Date Activated Date Inactivated Comments 01/11/2024 7:42 AM 01/13/2024 6:46 PM Care Teams Epilepsy Physician Relationship Specialty Start Date End Date Morgan Turner [place] [address] PCP - General Family Medicine 01/18/24 Ashish Morrow MD [address] [place] [address] [address] Consulting Physician Gastroenterology 06/09/24
[2025-06-09] VITALS (7 sets, daily range): BP systolic 103–122; BP diastolic 69–103; PULSE 62–95; RESP 16–19; TEMP 36.5; O2SAT 97–100
[2025-06-09 01:09] LABS: Hematocrit 38.9 % (37.0-47.0); Hemoglobin 12.5 g/dL (12.0-15.0); Immature Granulocyte Percent A 0.2 % (0-0.5); Immature Platelet Fraction Pct 4.6 % (0.9-11.2); Lymphocytes Absolute Auto 1.48 K/mm3 (0.9-3.2); Mean Corpuscular HGB Conc 32.1 g/dl (32-36); Mean Corpuscular Hemoglobin 23.1 pg (26-34); Mean Corpuscular Volume 71.9 fl (80-100); Nucleated Red Blood Cells Absolute Auto 0.000 K/mm3 (0.0-0.012); Nucleated Red Blood Cells Perc 0.0 % (0.0-0.2); Platelet Count Result 228 k/mm3 (150-375); Red Blood Count 5.41 M/mm3 (4.2-5.4); White Blood Count 4.2 K/mm3 (4.5-10.0)
[2025-06-09 01:19] LABS: Alanine Aminotransferase 24 U/L (6-35); Albumin Level 5.2 g/dL (3.5-5.1); Alkaline Phosphatase 92 U/L (38-126); Anion Gap 22 mmol/L (4-12); Aspartate Amino Transferase 45 U/L (14-36); Bilirubin,Total 0.5 mg/dL (0.2-1.3); Blood Urea Nitrogen 7 mg/dL (7-17); Calcium 9.1 mg/dL (8.4-10.2); Carbon Dioxide 12 mmol/L (22-30); Chloride 104 mmol/L (98-107); Estimated CRCL calculation 93 ml/min; Estimated Glomerular Filt Rate > 60; Glucose 76 mg/dL (65-110); Lipase 37 U/L (23-300); Potassium 3.5 mmol/L (3.4-5.0); Sodium 138 mmol/L (137-145); Total Protein 9.7 g/dL (6.3-8.2)
[2025-06-09 01:30] LABS: Ovalocytes 1+; Schistocytes Rare; Target Cells 1+
--- NOTE | 2025-06-09 02:21 | PC.NURSE ---
Pt states she is unable to provide urine sample at this time due to her side hurting. pt states she will try in a little bit.
[2025-06-09 02:47] LABS: BEDSIDEPREGUCG Negative (Negative)
[2025-06-09 03:10] LABS: Add Urine Microscopic? YES; Appearance Urine Clear (Clear); Glucose Urine UA Trace mg/dL (Negative); Leukocyte Esterase Ur Negative LEU/UL (Negative); Need Manual Microscopic Reviewed; Nitrate Urine Negative (Negative); Non Pathogenic Casts 0-2; Specific Grav Ur 1.015 (1.001-1.035)
--- NOTE | 2025-06-09 04:15 | ED.NAVMDI ---
HPI - Nausea/Vomiting/Diarrhea General Chief complaint: Nausea/Vomiting/Diarrhea Stated complaint: n/v Time Seen by Provider: 06/09/25 04:09 Source: patient Mode of arrival: ambulatory Limitations: no limitations History of Present Illness HPI Narrative: Patient is a 29-year-old female presents to the emergency department complaining her gastritis flaring up, sore throat, a little bit of nausea and vomiting, black poop. Patient notes that she is not seeing anyone for her gastritis. Patient states she drinks alcohol daily about 2 gal daily, last drink was before she got here tonight. Notes that the black food started yesterday. Denies use of any blood thinners. Denies use of any NSAIDs. Denies being on antacids. Denies any history of EGD. Denies seeing a GI doctor. Patient notes that her vomit also also has a little bloody appearance to it. Patient reportedly had a blood sugar of 48 and was given D10 for EMS. Related Data Home Medications ?Medication ?Instructions ?Recorded ?Confirmed ?Last Taken ?Type naltrexone microspheres 380 mg 380 mg IM MONTHLY 01/14/25 02/16/25 01/14/25 History intramuscular suspension,extended release (Vivitrol) acamprosate 333 mg tablet,delayed 666 mg PO TID 02/16/25 02/16/25 Unknown History release hydroxyzine HCl 50 mg tablet 50 mg PO TID PRN anxiety 02/16/25 02/16/25 Unknown History pantoprazole 40 mg tablet,delayed 40 mg PO Q12H 02/16/25 02/16/25 Unknown History release thiamine HCl (vitamin B1) 100 mg 100 mg PO DAILY 02/16/25 02/16/25 Unknown History tablet (Vitamin B-1) Allergies Allergy/AdvReac Type Severity Reaction Status Date / Time No Known Allergies Allergy Verified 02/16/25 21:51 Review of Systems Review of Systems: A 10 system review of systems was completed on the patient and is negative except for what is stated in the HPI. Nursing and ancillary documentation was reviewed. [facility] Past Medical History Medical History (Updated 06/09/25 @ 07:48 by Robert Cunningham DO) Alcohol abuse PTSD (post-traumatic stress disorder) Alcoholism Family History Family History Mother Hypertension Lung cancer Sibling Hypertension Sibling Hypertension Father Hypertension Sibling Heart murmur Social History Social History Smoking packs per day: 1 Smoking cigarettes per day: 20.0 Years smoked: 15 Smoking pack-years: 15.00 Smoking status: Former smoker Tobacco type: cigarettes and e-cigarettes/vaping Alcohol intake: current Drinks per week: 30 Substance use: current Substance use type: marijuana Other substance usage details: Pt drinks 1/5 monthly prior to Vivitrol injection. Last use: 02/16/25 Lack of Transportation: YES Lack of Food: Often True Current Housing: I Have Housing Concerned About Future Housing: No Difficulty Paying Gas/Electric Bills: No Difficulty Paying for Meds: No Currently Unemployed: No Education: Trade/Vocational Certificate Difficulty w/ Childcare or Family Care: No Living arrangements: alone Occupation/Education: unemployed Sexual Orientation (if Verbalized by the Patient): Lesbian, Gordon, or Homosexual Spiritual care concerns: No Course Vital Signs Vital signs: Vital Signs Temperature 98.3 F 06/08/25 23:50 Pulse Rate 91 06/08/25 23:50 Respiratory Rate 18 06/08/25 23:50 Blood Pressure 116/93 H 06/08/25 23:50 Pulse Oximetry 100 06/08/25 23:50 Oxygen Delivery Room Air 06/08/25 23:50 Temperature 98.3 F 06/08/25 23:50 Pulse Rate 93 06/09/25 07:15 Respiratory Rate 19 06/09/25 07:15 Blood Pressure 122/78 06/09/25 07:15 Pulse Oximetry 100 06/09/25 07:15 Oxygen Delivery Room Air 06/09/25 02:17 [facility] Narrative Medical decision making narrative: Patient presents with the above complaint. Initial vitals are remarkable for no significant abnormalities. Physical examination as noted above. Plan discussed: laboratory analysis, EKG, imaging. Patient ordered IVF, Zofran, Protonix, thiamine, continuous cardiac monitoring, continuous pulse oximetry. CT abdomen pelvis preliminary findings radiology interpretation is no acute unenhanced CT abnormality. Motion limited. No active hemorrhage. Arterial structures grossly unremarkable. Possible contusions or other process in the right buttock subcutaneous tissue, correlate with presentation Digital rectal examination revealed light brown colored stool, guaiac negative. Patient signed out to oncoming physician Dr. Hernandez. Differential Diagnosis Differential Diagnosis: Alcoholic ketoacidosis, gastritis, peptic ulcer disease, GI bleed, metabolic derangement, electrolyte derangement, alcohol use disorder, pancreatitis. Medical Records I have reviewed the following patient records and this information was taken into consideration when formulating the assessment and plan.: previous ER visits Lab Data MDM Lab Attestation statement: I personally reviewed the patient's lab results. Lab results narrative: CBC reveals white blood cell count of 4.2. Coags are within normal limits. Comprehensive metabolic panel reveals a bicarb 12, anion gap of 22, AST of 45. TSH is 0.120. Lipase is 37. Troponin is 0.034. Total creatine kinase is 115. Magnesium is 1.9. Lactic acid is 5.1. Urinalysis reveals trace glucose, 4+ ketones, 3+ bacteria. test negative. Ethyl alcohol level is 127. 06/09/25 00:56 06/09/25 00:56 Labs: Lab Results 06/09/25 06/09/25 06/09/25 Range/Units 00:55 00:56 02:43 WBC 4.2 L (4.5-10.0) K/mm3 RBC 5.41 H (4.2-5.4) M/mm3 Hgb 12.5 (12.0-15.0) g/dL Hct 38.9 (37.0-47.0) % MCV 71.9 L (80-100) fl MCH 23.1 L (26-34) pg MCHC 32.1 (32-36) g/dl RDW 15.5 H (11.5-14.5) % Plt Count 228 (150-375) k/mm3 MPV 10.3 (7.4-10.4) fl Immature Gran % (Auto) 0.2 (0-0.5) % Neut % (Auto) 59.9 (45.5-73.1) % Lymph % (Auto) 35.2 (18.3-44.2) % [place] % (Auto) 4.0 (2.6-8.5) % Eos % (Auto) 0.2 (0-4.4) % Baso % (Auto) 0.5 (0.2-1.2) % Lymph # (Auto) 1.48 (0.9-3.2) K/mm3 [place] # (Auto) 0.2 (0.1-0.6) K/mm3 Eos # (Auto) 0.0 (0-0.3) K/mm3 Baso # (Auto) 0.0 (0.0-0.1) K/mm3 Abs Immat Gran (auto) 0.01 (0.00-0.031) K/mm3 Absolute Neuts (auto) 2.5 (1.3-6.7) K/mm3 Absolute Nucleated RBC 0.000 (0.0-0.012) K/mm3 Band Neutrophils % Not Reportable Nucleated RBC % 0.0 (0.0-0.2) % Platelet Estimate Adequate (Adequate) % Immature Plt Fraction 4.6 (0.9-11.2) % Target Cells 1+ Ovalocytes 1+ Schistocytes Rare PT 14.0 (11.1-14.7) Seconds INR 1.1 APTT 23.3 (22.3-36.8) Seconds Sodium 138 (137-145) mmol/L Potassium 3.5 (3.4-5.0) mmol/L Chloride 104 (98-107) mmol/L Carbon Dioxide 12 L (22-30) mmol/L Anion Gap 22 H (4-12) mmol/L BUN 7 (7-17) mg/dL Creatinine 0.75 (0.7-1.0) mg/dL Estim Creat Clear Calc 93 ml/min Estimated GFR > 60 (59 - ) Glucose 76 (65-110) mg/dL POC Capillary Glucose (65-105) mg/dl Lactic Acid (0.7-2.0) mmol/L Calcium 9.1 (8.4-10.2) mg/dL Magnesium 1.9 (1.6-2.3) mg/dL Total Bilirubin 0.5 (0.2-1.3) mg/dL AST 45 H (14-36) U/L ALT 24 (6-35) U/L Alkaline Phosphatase 92 (38-126) U/L Total Creatine Kinase 115 (30-135) U/L Troponin I 0.034 (0.000-0.034) ng/mL Total Protein 9.7 H (6.3-8.2) g/dL Albumin 5.2 H (3.5-5.1) g/dL Lipase 37 (23-300) U/L TSH (Reflex) 0.120 L (0.465-4.68) uIU/mL Free T4 1.40 (0.78-2.19) ng/dL Total T3 0.87 (0.82-1.58) NG/ML Urine Color Yellow (Yellow) Urine Appearance Clear (Clear) Urine pH 5.0 (5.0-9.0) Ur Specific [place] 1.015 (1.001-1.035) Urine Protein Trace (Negative) mg/dL Urine Glucose (UA) Trace H (Negative) mg/dL Urine Ketones 4+ H (Negative) mg/dL Ur Blood (Man) Negative (Negative) Urine Nitrate Negative (Negative) Urine Bilirubin Negative (Negative) Urine Urobilinogen 0.2 (<2.0) mg/dL Add Ur Microanalysis Reviewed Leukocyte Esterase Rfl Negative (Negative) CARISSA/UL Urine RBC 0-2 (0-2) /hpf Urine WBC 0-5 (0-3) /hpf Ur Squamous Epith Cells Moderate (Few) /hpf Urine Bacteria 3+ H /hpf Urine Casts 0-2 POC Urine HCG, Qual (Negative) Ethyl Alcohol 127 (<10) mg/dL Blood Type Antibody Screen 06/09/25 06/09/25 06/09/25 Range/Units 02:44 05:05 05:20 WBC (4.5-10.0) K/mm3 RBC (4.2-5.4) M/mm3 Hgb (12.0-15.0) g/dL Hct (37.0-47.0) % MCV (80-100) fl MCH (26-34) pg MCHC (32-36) g/dl RDW (11.5-14.5) % Plt Count (150-375) k/mm3 MPV (7.4-10.4) fl Immature Gran % (Auto) (0-0.5) % Neut % (Auto) (45.5-73.1) % Lymph % (Auto) (18.3-44.2) % [place] % (Auto) (2.6-8.5) % Eos % (Auto) (0-4.4) % Baso % (Auto) (0.2-1.2) % Lymph # (Auto) (0.9-3.2) K/mm3 [place] # (Auto) (0.1-0.6) K/mm3 Eos # (Auto) (0-0.3) K/mm3 Baso # (Auto) (0.0-0.1) K/mm3 Abs Immat Gran (auto) (0.00-0.031) K/mm3 Absolute Neuts (auto) (1.3-6.7) K/mm3 Absolute Nucleated RBC (0.0-0.012) K/mm3 Band Neutrophils % Nucleated RBC % (0.0-0.2) % Platelet Estimate (Adequate) % Immature Plt Fraction (0.9-11.2) % Target Cells Ovalocytes Schistocytes PT (11.1-14.7) Seconds INR APTT (22.3-36.8) Seconds Sodium (137-145) mmol/L Potassium (3.4-5.0) mmol/L Chloride (98-107) mmol/L Carbon Dioxide (22-30) mmol/L Anion Gap (4-12) mmol/L BUN (7-17) mg/dL Creatinine (0.7-1.0) mg/dL Estim Creat Clear Calc ml/min Estimated GFR (59 - ) Glucose (65-110) mg/dL POC Capillary Glucose (65-105) mg/dl Lactic Acid 5.1 H* (0.7-2.0) mmol/L Calcium (8.4-10.2) mg/dL Magnesium (1.6-2.3) mg/dL Total Bilirubin (0.2-1.3) mg/dL AST (14-36) U/L ALT (6-35) U/L Alkaline Phosphatase (38-126) U/L Total Creatine Kinase (30-135) U/L Troponin I (0.000-0.034) ng/mL Total Protein (6.3-8.2) g/dL Albumin (3.5-5.1) g/dL Lipase (23-300) U/L TSH (Reflex) (0.465-4.68) uIU/mL Free T4 (0.78-2.19) ng/dL Total T3 (0.82-1.58) NG/ML Urine Color (Yellow) Urine Appearance (Clear) Urine pH (5.0-9.0) Ur Specific [place] (1.001-1.035) Urine Protein (Negative) mg/dL Urine Glucose (UA) (Negative) mg/dL Urine Ketones (Negative) mg/dL Ur Blood (Man) (Negative) Urine Nitrate (Negative) Urine Bilirubin (Negative) Urine Urobilinogen (<2.0) mg/dL Add Ur Microanalysis Leukocyte Esterase Rfl (Negative) CARISSA/UL Urine RBC (0-2) /hpf Urine WBC (0-3) /hpf Ur Squamous Epith Cells (Few) /hpf Urine Bacteria /hpf Urine Casts POC Urine HCG, Qual Negative (Negative) Ethyl Alcohol (<10) mg/dL Blood Type O Positive Antibody Screen Negative 06/09/25 Range/Units 06:30 WBC (4.5-10.0) K/mm3 RBC (4.2-5.4) M/mm3 Hgb (12.0-15.0) g/dL Hct (37.0-47.0) % MCV (80-100) fl MCH (26-34) pg MCHC (32-36) g/dl RDW (11.5-14.5) % Plt Count (150-375) k/mm3 MPV (7.4-10.4) fl Immature Gran % (Auto) (0-0.5) % Neut % (Auto) (45.5-73.1) % Lymph % (Auto) (18.3-44.2) % [place] % (Auto) (2.6-8.5) % Eos % (Auto) (0-4.4) % Baso % (Auto) (0.2-1.2) % Lymph # (Auto) (0.9-3.2) K/mm3 [place] # (Auto) (0.1-0.6) K/mm3 Eos # (Auto) (0-0.3) K/mm3 Baso # (Auto) (0.0-0.1) K/mm3 Abs Immat Gran (auto) (0.00-0.031) K/mm3 Absolute Neuts (auto) (1.3-6.7) K/mm3 Absolute Nucleated RBC (0.0-0.012) K/mm3 Band Neutrophils % Nucleated RBC % (0.0-0.2) % Platelet Estimate (Adequate) % Immature Plt Fraction (0.9-11.2) % Target Cells Ovalocytes Schistocytes PT (11.1-14.7) Seconds INR APTT (22.3-36.8) Seconds Sodium (137-145) mmol/L Potassium (3.4-5.0) mmol/L Chloride (98-107) mmol/L Carbon Dioxide (22-30) mmol/L Anion Gap (4-12) mmol/L BUN (7-17) mg/dL Creatinine (0.7-1.0) mg/dL Estim Creat Clear Calc ml/min Estimated GFR (59 - ) Glucose (65-110) mg/dL POC Capillary Glucose 216 H (65-105) mg/dl Lactic Acid (0.7-2.0) mmol/L Calcium (8.4-10.2) mg/dL Magnesium (1.6-2.3) mg/dL Total Bilirubin (0.2-1.3) mg/dL AST (14-36) U/L ALT (6-35) U/L Alkaline Phosphatase (38-126) U/L Total Creatine Kinase (30-135) U/L Troponin I (0.000-0.034) ng/mL Total Protein (6.3-8.2) g/dL Albumin (3.5-5.1) g/dL Lipase (23-300) U/L TSH (Reflex) (0.465-4.68) uIU/mL Free T4 (0.78-2.19) ng/dL Total T3 (0.82-1.58) NG/ML Urine Color (Yellow) Urine Appearance (Clear) Urine pH (5.0-9.0) Ur Specific [place] (1.001-1.035) Urine Protein (Negative) mg/dL Urine Glucose (UA) (Negative) mg/dL Urine Ketones (Negative) mg/dL Ur Blood (Man) (Negative) Urine Nitrate (Negative) Urine Bilirubin (Negative) Urine Urobilinogen (<2.0) mg/dL Add Ur Microanalysis Leukocyte Esterase Rfl (Negative) CARISSA/UL Urine RBC (0-2) /hpf Urine WBC (0-3) /hpf Ur Squamous Epith Cells (Few) /hpf Urine Bacteria /hpf Urine Casts POC Urine HCG, Qual (Negative) Ethyl Alcohol (<10) mg/dL Blood Type Antibody Screen Imaging Data Radiologist's impression: ITS Impressions Abdomen CT 12/07/25 07:28 IMPRESSION: 1. No acute abnormality. ECG Data EKG #1: Attestation: I personally reviewed and interpreted this ECG as follows: ECG completion date: 06/09/25 ECG completion time: 05:24 Interpretation: Rate of 62, rhythm sinus rhythm, axis is normal, no ST elevations or depressions, when compared to old EKG on file from February 16, 2025 there are no significant changes. Discharge Plan Discharge Clinical Impression: Alcoholic ketoacidosis, Alcohol use disorder, Hypoglycemia Patient Disposition: Other Condition: Stable Instructions: Antibiotic Form Patient Language: Zambian Prescriptions: No Action folic acid 1 mg tablet 1 mg PO DAILY Qty: 30 0RF thiamine HCl (vitamin B1) [Vitamin B-1] 100 mg tablet 100 mg PO DAILY acamprosate 333 mg tablet,delayed release (DR/EC) 666 mg PO TID hydroxyzine HCl 50 mg tablet 50 mg PO TID PRN (Reason: anxiety) pantoprazole 40 mg tablet,delayed release (DR/EC) 40 mg PO Q12H ondansetron 4 mg tablet,disintegrating 4 mg PO Q8H PRN (Reason: nausea and vomiting) Qty: 14 0RF metoclopramide HCl [Reglan] 10 mg tablet 10 mg PO Q6H PRN (Reason: nausea and vomiting) Qty: 14 0RF Vivitrol 380 mg suspension,extended rel recon 380 mg IM MONTHLY potassium chloride 20 mEq packet 20 meq PO DAILY Qty: 5 0RF Follow-up/Referrals: Johnny,MD Morgan [Primary Care Provider, Unknown]
--- NOTE | 2025-06-09 04:16 | ECG_ITS ---
Test Date: 2025-06-09 05:24:32 Measurements Intervals [place] Rate: 62 P: -11 IA: 143 QRS: 74 QRSD: 84 T: 62 QT: 453 QTc: 463 Interpretive Statements SINUS RHYTHM ST ELEVATION IN ANTEROLAT/INF LEADS- PROBABLY EARLY REPOLARIZATION ABNORMALITY BORDERLINE ECG Compared to ECG 02/16/2025 16:05:13 No significant changes Electronically Signed On 06-09-2025 09:28:21 [employer] by Leonidas Flaherty D.O.
[2025-06-09 04:44] LABS: Creatine Kinase 115 U/L (30-135); Magnesium 1.9 mg/dL (1.6-2.3)
[2025-06-09 04:51] LABS: INR 1.1; Prothrombin Time 14.0 Seconds (11.1-14.7)
[2025-06-09 04:52] LABS: Partial Thromboplastin Time 23.3 Seconds (22.3-36.8)
[2025-06-09 04:56] LABS: Troponin I 0.034 ng/mL (0.000-0.034)
[2025-06-09 05:16] LABS: Thyroid Stimulating Hormone Reflex 0.120 uIU/mL (0.465-4.68)
[2025-06-09] MEDS: SODIUM CHLORIDE 0.9% IV 1,000 ML 999 ML IV CONT ×2 (05:20→09:33)
[2025-06-09] MEDS: PANTOPRAZOLE SODIUM IV 80 MG in SODIUM CHLORIDE 0.9% IV 500 ML 50 MG IV CONT (05:20)
[2025-06-09] MEDS: DEXTROSE 10% 1,000 ML 500 ML IV CONT (05:31)
[2025-06-09] MEDS: PANTOPRAZOLE SODIUM IV 40 MG VIAL 80 MG IV PUSH (05:50)
[2025-06-09] MEDS: THIAMINE HCL 200 MG/2 ML VIAL 100 MG IV PUSH (05:51)
[2025-06-09] MEDS: ONDANSETRON INJ 4 MG/2 ML VIAL IV PUSH (05:51)
--- NOTE | 2025-06-09 06:05 | PC.NURSE ---
pt attempted to provide stool sample and was unsuccessful at this time.
[2025-06-09 06:39] LABS: Free T4 Free Thyroxine Reflex 1.40 ng/dL (0.78-2.19)
--- NOTE | 2025-06-09 07:15 | PC.NURSE ---
EDP gave VORB to pause pt dextrose IV infusion
[2025-06-09 07:22] LABS: Total Triiodothyronine (T3) 0.87 NG/ML (0.82-1.58)
== END 2025-06-09 12:24 | disposition home or self-care (01) ==
PROVIDERS: Emergency Provider Student in an Organized Health Care Education/Training Program; PCP Hospitalist
DX: E87.29 Other acidosis (principal); E16.2 Hypoglycemia, unspecified; F10.20 Alcohol dependence, uncomplicated; Y90.6 Blood alcohol level of 120-199 mg/100 ml; Z87.891 Personal history of nicotine dependence; R94.31 Abnormal electrocardiogram [ECG] [EKG]
CPT/HCPCS: 36415; 74170; 80053; 81001; 81025; 82077; 82550; 82948; 83605; 83690; 83735; 84439; 84443; 84480; 84484; 85025; 85055; 85610; 85730; 86850; 86900; 86901; 93005; 96365; 96366; 96375; 99284; J2405; J2470; J3411; J7030; J7040; Q9967

== ENCOUNTER 2025-06-21 04:05 | Emergency (ER) | payer OTHER, SELFPAY ==
[2025-06-21] VITALS (15 sets, daily range): BP systolic 116–131; BP diastolic 73–110; PULSE 79–128; RESP 14–31; TEMP 36.6; O2SAT 97–100
[2025-06-21] MEDS: DEXTROSE 5%/LACTATED RINGERS 1,000 ML 1000 ML IV CONT (04:17)
[2025-06-21] MEDS: LACTATED RINGERS 1,000 ML 999 ML IV CONT (04:17)
--- NOTE | 2025-06-21 04:20 | ED.NAVMDI ---
HPI - Nausea/Vomiting/Diarrhea General Chief complaint: Alcohol Stated complaint: ABD PAIN/ETOH W/D S/S Time Seen by Provider: 06/21/25 04:07 History of Present Illness HPI Narrative: 29-year-old female with history of alcohol addiction, cannabinoid use, frequent visits to the emergency department for complications secondary to the above. Patient is on Vivitrol for alcohol dependence and had her shot yesterday which she gets monthly. About 1 hour after receiving the shot she began drinking up to a gal of alcohol. Patient states that she has a history of alcoholism and has been drinking despite the medication she takes for her dependency. Also endorses marijuana smoking recently. Endorses nausea and vomiting which is what she called the ambulance for assistance. States she also had some tremulousness but that seems resolved. No other recent health concerns. Was seen in the emergency department for similar symptoms several weeks ago and had a very thorough extensive workup with labs and imaging pointing towards alcoholic gastritis and alcoholic ketoacidosis. Denies any interval change in history between that visit and today. Denies any chance of . Related Data Home Medications ?Medication ?Instructions ?Recorded ?Confirmed ?Last Taken ?Type naltrexone microspheres 380 mg 380 mg IM MONTHLY 01/14/25 02/16/25 01/14/25 History intramuscular suspension,extended release (Vivitrol) acamprosate 333 mg tablet,delayed 666 mg PO TID 02/16/25 02/16/25 Unknown History release hydroxyzine HCl 50 mg tablet 50 mg PO TID PRN anxiety 02/16/25 02/16/25 Unknown History pantoprazole 40 mg tablet,delayed 40 mg PO Q12H 02/16/25 02/16/25 Unknown History release thiamine HCl (vitamin B1) 100 mg 100 mg PO DAILY 02/16/25 02/16/25 Unknown History tablet (Vitamin B-1) Allergies Allergy/AdvReac Type Severity Reaction Status Date / Time No Known Allergies Allergy Verified 02/16/25 21:51 Review of Systems Review of Systems: As reviewed above in HPI All systems reviewed & are unremarkable except as noted in HPI and below PMFSH Past Medical History Medical History Alcohol abuse PTSD (post-traumatic stress disorder) Alcoholism Family History Family History Mother Hypertension Lung cancer Sibling Hypertension Sibling Hypertension Father Hypertension Sibling Heart murmur Social History Social History Smoking packs per day: 1 Smoking cigarettes per day: 20.0 Years smoked: 15 Smoking pack-years: 15.00 Smoking status: Former smoker Tobacco type: cigarettes and e-cigarettes/vaping Alcohol intake: current Drinks per week: 30 Substance use: current Substance use type: marijuana Other substance usage details: Pt drinks 1/5 monthly prior to Vivitrol injection. Last use: 02/16/25 Lack of Transportation: YES Lack of Food: Often True Current Housing: I Have Housing Concerned About Future Housing: No Difficulty Paying Gas/Electric Bills: No Difficulty Paying for Meds: No Currently Unemployed: No Education: Trade/Vocational Certificate Difficulty w/ Childcare or Family Care: No Living arrangements: alone Occupation/Education: unemployed Sexual Orientation (if Verbalized by the Patient): Lesbian, Gordon, or Homosexual Spiritual care concerns: No Exam Narrative: GENERAL: Retching and spitting up clear emesis, awake and able to answer questions. Not clinically intoxicated. HEAD: Normocephalic and atraumatic EYES: PERRLA ENT: Nares clear, no rhinorrhea or epistaxis. Mucous membranes moist. NECK: Supple. CHEST: Mildly tachypneic but no respiratory distress. Able to answer questions without any dyspnea. HEART: Mildly tachycardic rate, regular rhythm, warm extremities ABDOMEN: [Soft, nondistended], [nontender], [No rigidity or guarding] EXTREMITIES: Normal range of motion. [No edema.] SKIN: Warm, dry, no rash. NEURO: [No focal deficits]. Alert and oriented [x3.] PSYCH: [Normal mood and affect.] Course Vital Signs Vital signs: Vital Signs Temperature 36.6 C 06/21/25 04:02 Pulse Rate 114 H 06/21/25 04:02 Respiratory Rate 22 H 06/21/25 04:02 Blood Pressure 131/110 H 06/21/25 04:02 Pulse Oximetry 100 06/21/25 04:02 Oxygen Delivery Room Air 06/21/25 04:02 Temperature 36.6 C 06/21/25 04:02 Pulse Rate 118 H 06/21/25 06:15 Respiratory Rate 30 H 06/21/25 06:15 Blood Pressure 123/84 06/21/25 06:01 Pulse Oximetry 100 06/21/25 05:46 Oxygen Delivery Room Air 06/21/25 04:02 MDM MDM Narrative Medical decision making narrative: 29-year-old female with history of alcohol addiction, cannabinoid use, frequent visits to the emergency department for complications secondary to the above. Patient is on Vivitrol for alcohol dependence and had her shot yesterday which she gets monthly. About 1 hour after receiving the shot she began drinking up to a gal of alcohol. Patient states that she has a history of alcoholism and has been drinking despite the medication she takes for her dependency. Also endorses marijuana smoking recently. Endorses nausea and vomiting which is what she called the ambulance for assistance. States she also had some tremulousness but that seems resolved. No other recent health concerns. Was seen in the emergency department for similar symptoms several weeks ago and had a very thorough extensive workup with labs and imaging pointing towards alcoholic gastritis and alcoholic ketoacidosis. Denies any interval change in history between that visit and today. Denies any chance of . Patient presents with signs and symptoms of alcoholic gastritis, alcoholic ketoacidosis, marijuana abuse and cannabinoid hyperemesis, complication of alcohol mixing with naltrexone, low suspicion alcohol withdrawal given her active drinking just several hours ago. She is mildly tachycardic and tachypneic but not any acute respiratory distress. She appears uncomfortable and retching continuously. She is spitting up clear emesis without any signs of blood or coffee grounds. She is afebrile and saturating 100% on room air. Nondistended benign abdominal exam. Will treat her symptoms with antiemetics with droperidol as well as dextrose containing fluids and thiamine for her alcoholism. Laboratory studies and alcohol level pending. test ordered. Will re-evaluate after treatments. Patient re-evaluated feels significantly better after the droperidol and Pepcid. She is no longer nauseous or retching. No further emesis here in the emergency department. She is tolerating oral intake. Hemodynamically all her vitals have normalized. Her laboratory studies do not show any significant derangements. No significant electrolyte imbalances or signs of infection. No anemia. She was hydrated and treated and safe for discharge with prescription medications sent as well as return precautions and instructions for alcohol cessation. Differential Diagnosis Differential Diagnosis: Patient presents with signs and symptoms of alcoholic gastritis, alcoholic ketoacidosis, marijuana abuse and cannabinoid hyperemesis, complication of alcohol mixing with naltrexone, low suspicion alcohol withdrawal given her active drinking just several hours ago. Lab Data MDM Lab Attestation statement: I personally reviewed the patient's lab results. 06/21/25 04:29 06/21/25 04:29 Labs: Lab Results 06/21/25 06/21/25 06/21/25 Range/Units 04:10 04:29 04:33 WBC 6.1 (4.5-10.0) K/mm3 RBC 5.52 H (4.2-5.4) M/mm3 Hgb 13.0 (12.0-15.0) g/dL Hct 40.3 (37.0-47.0) % MCV 73.0 L (80-100) fl MCH 23.6 L (26-34) pg MCHC 32.3 (32-36) g/dl RDW 16.2 H (11.5-14.5) % Plt Count 419 H D (150-375) k/mm3 MPV 11.1 H (7.4-10.4) fl Immature Gran % (Auto) 0.2 (0-0.5) % Neut % (Auto) 64.2 (45.5-73.1) % Lymph % (Auto) 27.1 (18.3-44.2) % [place] % (Auto) 6.7 (2.6-8.5) % Eos % (Auto) 0.8 (0-4.4) % Baso % (Auto) 1.0 (0.2-1.2) % Lymph # (Auto) 1.65 (0.9-3.2) K/mm3 [place] # (Auto) 0.4 (0.1-0.6) K/mm3 Eos # (Auto) 0.1 (0-0.3) K/mm3 Baso # (Auto) 0.1 (0.0-0.1) K/mm3 Abs Immat Gran (auto) 0.01 (0.00-0.031) K/mm3 Absolute Neuts (auto) 3.9 (1.3-6.7) K/mm3 Absolute Nucleated RBC 0.000 (0.0-0.012) K/mm3 Band Neutrophils % Not Reportable Nucleated RBC % 0.0 (0.0-0.2) % Platelet Estimate Increased (Adequate) Ovalocytes 1+ Schistocytes None seen Sodium 141 (137-145) mmol/L Potassium 3.4 (3.4-5.0) mmol/L Chloride 102 (98-107) mmol/L Carbon Dioxide 19 L (22-30) mmol/L Anion Gap 20 H (4-12) mmol/L BUN 3 L (7-17) mg/dL Creatinine 0.70 (0.7-1.0) mg/dL Estim Creat Clear Calc Not Reportable Estimated GFR > 60 (59 - ) Glucose 110 (65-110) mg/dL POC Capillary Glucose 114 H (65-105) mg/dl Calcium 9.6 (8.4-10.2) mg/dL Total Bilirubin 1.0 (0.2-1.3) mg/dL AST 76 H (14-36) U/L ALT 30 (6-35) U/L Alkaline Phosphatase 109 (38-126) U/L Total Protein 9.9 H (6.3-8.2) g/dL Albumin 5.1 (3.5-5.1) g/dL Lipase 66 (23-300) U/L Beta-Hydroxybutyrate/Acetoacetate 0.35 H (0.02-0.27) mmol/L Serum HCG, Qual Negative Urine Color Dark yellow (Yellow) Urine Appearance Turbid H (Clear) Urine pH 6.0 (5.0-9.0) Ur Specific [place] 1.028 (1.001-1.035) Urine Protein 3+ H (Negative) mg/dL Urine Glucose (UA) Negative (Negative) mg/dL Urine Ketones 1+ H (Negative) mg/dL Ur Blood (Man) 3+ H (Negative) Urine Nitrate Negative (Negative) Urine Bilirubin 1+ H (Negative) Urine Urobilinogen 1.0 (<2.0) mg/dL Leukocyte Esterase Rfl Trace H (Negative) CARISSA/UL Urine RBC >100 H (0-2) /hpf Urine WBC 6-10 H (0-3) /hpf Ur Squamous Epith Cells Moderate (Few) /hpf Urine Bacteria Rare /hpf Urine Casts >20 Hyaline Casts Present (None) /lpf Urine Yeast (Budding) Present H (None) /hpf POC Urine HCG, Qual Negative (Negative) Ethyl Alcohol 47 (<10) mg/dL Discharge Plan Discharge Clinical Impression: Alcoholic gastritis, Side effect of medication, Hyperemesis Patient Disposition: Home Condition: Stable Instructions: Antibiotic Form, Gastritis (ED) Additional Instructions: Laboratory studies showed no significant abnormalities or derangements. Electrolytes are okay. We hydrated to hearing gave you antiemetic medications. We have prescribed you medications for nausea and vomiting as well as abdominal discomfort from alcohol. Refrain from drinking on naltrexone as they can interact together and cause significant symptoms like you experienced today. Return with any emergent concerns or worsening symptoms or inability to tolerate oral intake otherwise follow-up with regular care providers. Patient Language: Danish Prescriptions: New famotidine [Pepcid] 20 mg tablet 20 mg PO BID Qty: 20 0RF metoclopramide HCl [Reglan] 5 mg tablet 5 mg PO Q8H PRN (Reason: nausea and vomiting) Qty: 20 0RF No Action folic acid 1 mg tablet 1 mg PO DAILY Qty: 30 0RF thiamine HCl (vitamin B1) [Vitamin B-1] 100 mg tablet 100 mg PO DAILY acamprosate 333 mg tablet,delayed release (DR/EC) 666 mg PO TID hydroxyzine HCl 50 mg tablet 50 mg PO TID PRN (Reason: anxiety) pantoprazole 40 mg tablet,delayed release (DR/EC) 40 mg PO Q12H ondansetron 4 mg tablet,disintegrating 4 mg PO Q8H PRN (Reason: nausea and vomiting) Qty: 14 0RF metoclopramide HCl [Reglan] 10 mg tablet 10 mg PO Q6H PRN (Reason: nausea and vomiting) Qty: 14 0RF Vivitrol 380 mg suspension,extended rel recon 380 mg IM MONTHLY potassium chloride 20 mEq packet 20 meq PO DAILY Qty: 5 0RF Follow-up/Referrals: Johnny,MD Morgan [Primary Care Provider, Unknown]
[2025-06-21 04:36] LABS: BEDSIDEPREGUCG Negative (Negative)
[2025-06-21 04:37] LABS: Hematocrit 40.3 % (37.0-47.0); Hemoglobin 13.0 g/dL (12.0-15.0); Immature Granulocyte Percent A 0.2 % (0-0.5); Lymphocytes Absolute Auto 1.65 K/mm3 (0.9-3.2); Mean Corpuscular HGB Conc 32.3 g/dl (32-36); Mean Corpuscular Hemoglobin 23.6 pg (26-34); Mean Corpuscular Volume 73.0 fl (80-100); Nucleated Red Blood Cells Absolute Auto 0.000 K/mm3 (0.0-0.012); Nucleated Red Blood Cells Perc 0.0 % (0.0-0.2); Platelet Count Result 419 k/mm3 (150-375); Red Blood Count 5.52 M/mm3 (4.2-5.4); White Blood Count 6.1 K/mm3 (4.5-10.0)
[2025-06-21] MEDS: THIAMINE HCL 200 MG/2 ML VIAL IV PUSH (04:38)
[2025-06-21] MEDS: FAMOTIDINE 20 MG/2 ML VIAL IV PUSH (04:38)
[2025-06-21 04:44] LABS: SPREG INTERNAL CONTROL Positive; Serum Qual hCG Negative
[2025-06-21 04:52] LABS: Alanine Aminotransferase 30 U/L (6-35); Albumin Level 5.1 g/dL (3.5-5.1); Alkaline Phosphatase 109 U/L (38-126); Anion Gap 20 mmol/L (4-12); Aspartate Amino Transferase 76 U/L (14-36); Bilirubin,Total 1.0 mg/dL (0.2-1.3); Blood Urea Nitrogen 3 mg/dL (7-17); Calcium 9.6 mg/dL (8.4-10.2); Carbon Dioxide 19 mmol/L (22-30); Chloride 102 mmol/L (98-107); Estimated Glomerular Filt Rate > 60; Glucose 110 mg/dL (65-110); Lipase 66 U/L (23-300); Potassium 3.4 mmol/L (3.4-5.0); Sodium 141 mmol/L (137-145); Total Protein 9.9 g/dL (6.3-8.2)
[2025-06-21 04:54] LABS: Beta-Hydroxybutyrate/Acetoace. 0.35 mmol/L (0.02-0.27)
[2025-06-21 04:58] LABS: Add Urine Microscopic? YES; Appearance Urine Turbid (Clear); Budding Yeast Urine Present /hpf; Glucose Urine UA Negative (Negative); Leukocyte Esterase Ur Trace LEU/UL (Negative); Nitrate Urine Negative (Negative); Non Pathogenic Casts >20; Specific Grav Ur 1.028 (1.001-1.035)
[2025-06-21 05:32] LABS: Ovalocytes 1+; Schistocytes None Seen
== END 2025-06-21 06:21 | disposition home or self-care (01) ==
PROVIDERS: Emergency Provider Student in an Organized Health Care Education/Training Program; PCP Hospitalist
DX: K29.20 Alcoholic gastritis without bleeding (principal); R11.2 Nausea with vomiting, unspecified; T50.7X1A Poisoning by analeptics and opioid receptor antagonists, accidental (unintentional), initial encounter; F10.20 Alcohol dependence, uncomplicated; Y90.2 Blood alcohol level of 40-59 mg/100 ml
CPT/HCPCS: 36415; 80053; 81001; 81025; 82010; 82077; 82948; 83690; 84703; 85025; 96361; 96374; 96375; 99284; J1790; J3411; J7120; J7121